=== PATIENT | female | born 1940 | race Caucasian/White ===

== ENCOUNTER → 2016-11-25 | Outpatient (CLI) | payer MEDICARE, BC ==
[2016-11-25 13:44] LABS: ALT 29 U/L (9-52); AST 26 U/L (14-36); Alkaline Phosphatase 112 U/L (38-126); Anion Gap 12 mmol/L; Blood Urea Nitrogen 18 mg/dL (7-17); Calcium 9.4 mg/dL (8.4-10.2); Carbon Dioxide 29 mmol/L (22-30); Chloride 102 mmol/L (98-107); Cholesterol 185 mg/dL (<200); Glucose 113 mg/dL (74-99); HDL Cholesterol 42 mg/dL (40-60); Non-African American GFR(MDRD) >60 (>60 ml/min/1.73 sqM); Potassium 4.9 mmol/L (3.5-5.1); Sodium 143 mmol/L (137-145); Total Bilirubin 0.6 mg/dL (0.2-1.3); Total Protein 7.7 g/dL (6.3-8.2); Triglycerides 110 mg/dL (<150)
== END | disposition home or self-care (01) ==
LOC: LABWHC1 12:23
PROVIDERS: ATTEND Internal Medicine Interventional Cardiology
DX: E78.2 Mixed hyperlipidemia (principal)
CPT/HCPCS: 36415; 80053; 80061

== ENCOUNTER → 2017-06-01 | Outpatient (CLI) | payer MEDICARE, BC ==
[2017-06-01 12:36] LABS: Basophils % (A) 1 %; CH 21.7; CHCM 28.1; Eosinophils # (A) 0.2 k/uL (0-0.7); Eosinophils % (A) 3 %; HCT 33.6 % (34.0-46.0); HDW 3.09; HGB 9.4 gm/dL (11.4-16.0); Hypochromasia Marked; Luc # (Auto) 0.26; Luc % (Auto) 3; Lymphocytes % (A) 26 %; MCH 21.7 pg (25.0-35.0); MCV 77.6 fL (80.0-100.0); Mean Platelet Volume 6.6; Microcytosis Slight; Monocytes # (A) 0.4 k/uL (0-1.0); Monocytes % (A) 5 %; Neutrophils # (A) 4.9 k/uL (1.3-7.7); Neutrophils % (A) 63 %; RBC 4.32 m/uL (3.80-5.40); RDW 15.8 % (11.5-15.5); WBC 7.7 k/uL (3.8-10.6); WBC (Perox) 8.22
[2017-06-01 12:48] LABS: ALT 21 U/L (9-52); AST 20 U/L (14-36); Alkaline Phosphatase 101 U/L (38-126); Anion Gap 10 mmol/L; Blood Urea Nitrogen 19 mg/dL (7-17); Calcium 9.3 mg/dL (8.4-10.2); Carbon Dioxide 30 mmol/L (22-30); Chloride 103 mmol/L (98-107); Cholesterol 170 mg/dL (<200); Glucose 119 mg/dL (74-99); HDL Cholesterol 37 mg/dL (40-60); Non-African American GFR(MDRD) >60 (>60 ml/min/1.73 sqM); Potassium 4.4 mmol/L (3.5-5.1); Sodium 143 mmol/L (137-145); Total Bilirubin 0.5 mg/dL (0.2-1.3); Total Protein 7.4 g/dL (6.3-8.2); Triglycerides 99 mg/dL (<150)
== END | disposition home or self-care (01) ==
LOC: LABWHC1 11:15
PROVIDERS: ATTEND Internal Medicine Interventional Cardiology
DX: I42.2 Other hypertrophic cardiomyopathy (principal); I10 Essential (primary) hypertension
CPT/HCPCS: 36415; 80053; 80061; 85025

== ENCOUNTER → 2017-11-02 | Outpatient (CLI) | payer MEDICARE, BC ==
[2017-11-02 11:58] LABS: ALT 28 U/L (9-52); AST 22 U/L (14-36); Albumin 4.2 g/dL (3.5-5.0); Alkaline Phosphatase 105 U/L (38-126); Anion Gap 10 mmol/L; Blood Urea Nitrogen 23 mg/dL (7-17); Calcium 9.8 mg/dL (8.4-10.2); Carbon Dioxide 34 mmol/L (22-30); Chloride 101 mmol/L (98-107); Cholesterol 198 mg/dL (<200); Glucose 126 mg/dL (74-99); HDL Cholesterol 39 mg/dL (40-60); LDL Cholesterol,Calculated 136 mg/dL (0-99); Potassium 4.4 mmol/L (3.5-5.1); Sodium 145 mmol/L (137-145); Total Bilirubin 0.4 mg/dL (0.2-1.3); Total Protein 7.6 g/dL (6.3-8.2); Triglycerides 113 mg/dL (<150)
== END | disposition home or self-care (01) ==
LOC: LABWHC1 11:04
PROVIDERS: ATTEND Internal Medicine Interventional Cardiology
DX: E78.2 Mixed hyperlipidemia (principal); R60.0 Localized edema
CPT/HCPCS: 36415; 80053; 80061

== ENCOUNTER → 2017-11-03 | Outpatient (CLI) | payer MEDICARE, BC ==
--- NOTE | 2017-11-03 15:38 | XR ---
EXAMINATION TYPE: XR chest 2V DATE OF EXAM: 11/03/2017 COMPARISON: 06/22/2015 INDICATION: CHF TECHNIQUE: Frontal and lateral views of the chest are obtained. FINDINGS: The heart size is normal. The pulmonary vasculature is normal. There is elevation of the right diaphragm. A small fluid collection is evident on the right. This cou ld be a subpulmonic effusion. Findings are similar to 06/22/2015. IMPRESSION: 1. Small to moderate right subpulmonic effusion.
== END | disposition home or self-care (01) ==
LOC: RADXRMAIN 15:12
PROVIDERS: ATTEND Physician Assistant
DX: I50.30 Unspecified diastolic (congestive) heart failure (principal); J91.8 Pleural effusion in other conditions classified elsewhere
CPT/HCPCS: 71046

== ENCOUNTER 2018-05-11 15:11 | Inpatient (IN) | payer MEDICARE, BC ==
[2018-05-11] MEDS ORDERED: EPINEPHrine 10 ML SYRINGE (0.1 MG/ML) ONE (15:20)
[2018-05-11] MEDS ORDERED: IPRATROPIUM-ALBUTEROL 3 ML NEB INHALATION STA (15:29)
[2018-05-11] MEDS ORDERED: IPRATROPIUM-ALBUTEROL 3 ML NEB INHALATION PRN (15:31)
[2018-05-11] MEDS: PROPOFOL 1,000 MG in EMPTY BAG 1 BAG IV SCH ×2 (15:35→19:41)
--- NOTE | 2018-05-11 15:37 | ED ---
General Adult HPI - General Chief complaint: Shortness of Breath Stated complaint: Respitory failure Source: patient, EMS Mode of arrival: EMS Limitations: altered mental status, physical limitation - History of Present Illness Initial comments: Patient is a 77 year old female presenting to the Emergency Department as a prioroty one by EMS for dyspnea. Patient reportedly became suddenly short of breath less than an hour prior to arrival. EMS reports patient decompensated despite CPAP. Patient is unresponsive and unable to provide any history. Patient does have a history of both pulmonary and cardiac problems previously. - Related Data Home Medications Medication Instructions Recorded Confirmed Cetirizine HCl [Zyrtec] 10 mg PO HS 05/31/14 05/11/18 Esomeprazole Magnesium [NexIUM] 40 mg PO AC-SUPPER 05/31/14 05/11/18 Furosemide [Lasix] 40 mg PO DAILY PRN 05/31/14 05/11/18 Montelukast [Singulair] 10 mg PO HS 05/31/14 05/11/18 Potassium Chloride ER [K-Dur 10] 10 meq PO DAILY 05/31/14 05/11/18 Thyroid, Pork [[place] Thyroid] 30 mg PO DAILY 05/31/14 05/11/18 Isosorbide Mononitrate [Imdur] 30 mg PO HS 06/01/14 05/11/18 Propafenone [Rythmol] 150 mg PO BID 11/22/14 05/11/18 Aspirin EC [Ecotrin] 325 mg PO DAILY 05/11/18 05/11/18 Diltiazem Cd [Cardizem CD] 300 mg PO HS 05/11/18 05/11/18 Ezetimibe [Zetia] 10 mg PO HS 05/11/18 05/11/18 Fluticasone/Salmeterol [Advair 1 puff INHALATION RT-BID 05/11/18 05/11/18 500-50 Diskus] Mirabegron [Myrbetriq] 25 mg PO DAILY 05/11/18 05/11/18 Vitamin D+Mineral+Vit C 2 tab PO DAILY 05/11/18 05/11/18 Allergies Allergy/AdvReac Type Severity Reaction Status Date / Time Sulfa (Sulfonamide Allergy Itching Verified 05/11/18 15:14 Antibiotics) MOLD Allergy Unknown Uncoded 05/11/18 15:14 SMOKE Allergy Unknown Uncoded 05/11/18 15:14 Review of Systems ROS Statement: Those systems with pertinent positive or pertinent negative responses have been documented in the HPI. ROS Other: All systems not noted in ROS Statement are negative. Limitations: ROS unobtainable due to patients medical condition Past Medical History Past Medical History: Asthma, Chest Pain / Angina, Heart Failure, COPD, CVA/TIA , GERD/Reflux, Hyperlipidemia, Hypertension, Pneumonia, Sleep Apnea/CPAP/BIPAP, Thyroid Disorder Additional Past Medical History / Comment(s): Valve Disease/AORTIC STENOSIS, TIA ,PALPITATIONS, KIDNEY STONES. UTI 1 MONTH AGO, GOUT ARTHRITS, CONSTIPATED, allergies History of Any Multi-Drug Resistant Organisms: None Reported Past Surgical History: Cholecystectomy, Heart Catheterization, Hysterectomy Additional Past Surgical History / Comment(s): diaphram surgery, cataract DONNIE, HEART CATH RADIAL APPROACH -SMALL 20% BLOCKAGE Past Anesthesia/Blood Transfusion Reactions: No Reported Reaction Past Psychological History: No Psychological Hx Reported Smoking Status: Never smoker Past Alcohol Use History: None Reported Past Drug Use History: None Reported - Past Family History Mother Family Medical History: Myocardial Infarction ([place]) Additional Family Medical History / Comment(s): AGE 71 Father Additional Family Medical History / Comment(s): AGE 67 FROM ALS General Exam Limitations: altered mental status, physical limitation General appearance: obtunded Head exam: Present: atraumatic Eye exam: Present: PERRL ENT exam: Present: other (bipap) Neck exam: Present: normal inspection Respiratory exam: Present: respiratory distress, wheezes, rales, decreased breath sounds Cardiovascular Exam: Present: tachycardia GI/Abdominal exam: Present: soft. Absent: tenderness Extremities exam: Absent: pedal edema, calf tenderness Neurological exam: Present: altered Expanded Neurological exam: Present: inattentive. Absent: protecting the airway Psychiatric exam: Present: other (non verbal) Skin exam: Present: cyanosis Course Vital Signs 05/11/18 05/11/18 05/11/18 15:14 15:22 15:30 Temperature 97.9 F Pulse Rate 116 H 118 H 114 H Respiratory 16 18 18 Rate Blood Pressure 210/100 240/109 173/72 O2 Sat by Pulse 82 L 97 97 Oximetry 05/11/18 05/11/18 05/11/18 15:50 15:55 16:05 Temperature Pulse Rate 110 H 108 H 105 H Respiratory 18 26 H 26 H Rate Blood Pressure 151/66 O2 Sat by Pulse 98 Oximetry - Reevaluation(s) Reevaluation #1: 05/11/18 15:43 Patient did code just prior to intubation. Patient did have CPR and 1 epinephrine with return of circulation. 05/11/18 15:43 Dr. Whatley did arrive just after patient. He did assist with care and placed central line. He did speak with family. 05/11/18 16:13 Patient was reevaluated 05/11/18 17:14 Abnormal vital signs and Elevated lactic acid is likely secondary to respiratory failure and cardiac arrest. Therefore patient does not meet sepsis criteria at this time. 05/11/18 17:14 Patient again reevaluated. Case was also discussed in detail with Dr. Randall, who will admit for Dr. Cox. EKG Findings - EKG Comments: EKG Findings:: Sinus tachycardia 1:15. First-degree AV block with a PA of 236. QRS 102. QT 294. QTC 406. Normal axis. Q wave in lead V1 and V2. No acute ST change. Procedures - Intubation Sedative: Versed Paralytic: Succinylcholine Laryngoscope: Branham Size: 3 ET Tube Size: 7.5 Tube Placement Confirmation: visualized tube passing through cords, equal breath sounds bilaterally, no breath sounds over epigastrium, confirmation by capnometry Additional Comments: Patient did have secretions in the posterior oropharynx prior to intubation that was suctioned out. Medical Decision Making - Lab Data Result diagrams: 05/11/18 15:25 05/11/18 15:25 Lab Results 05/11/18 05/11/18 05/11/18 Range/Units 15:25 15:25 15:25 WBC 22.9 H (3.8-10.6) k/uL RBC 5.24 (3.80-5.40) m/uL Hgb 15.2 (11.4-16.0) gm/dL Hct 49.0 H (34.0-46.0) % MCV 93.4 (80.0-100.0) fL MCH 29.0 (25.0-35.0) pg MCHC 31.1 (31.0-37.0) g/dL RDW 14.1 (11.5-15.5) % Plt Count 461 H (150-450) k/uL Neutrophils % (Manual) 48 % Band Neutrophils % 3 % Lymphocytes % (Manual) 43 % Monocytes % (Manual) 2 % Eosinophils % (Manual) 4 % Neutrophils # (Manual) 11.60 H (1.3-7.7) k/uL Lymphocytes # (Manual) 9.85 H (1.0-4.8) k/uL Monocytes # (Manual) 0.46 (0-1.0) k/uL Eosinophils # (Manual) 0.92 H (0-0.7) k/uL Nucleated RBCs 0 (0-0) /100 WBC Manual Slide Review Performed Hypochromasia Marked PT (9.0-12.0) sec INR (<1.2) APTT (22.0-30.0) sec Sample Site ABG pH (7.35-7.45) ABG pCO2 (35-45) mmHg ABG pO2 (83-108) mmHg ABG HCO3 (21-25) mmol/L ABG Total CO2 (19-24) mmol/L ABG O2 Saturation (94-97) % ABG Base Excess mmol/L Trevin Test FiO2 % Sodium 145 (137-145) mmol/L Potassium 5.0 (3.5-5.1) mmol/L Chloride 101 (98-107) mmol/L Carbon Dioxide 26 (22-30) mmol/L Anion Gap 18 mmol/L BUN 25 H (7-17) mg/dL Creatinine 0.80 (0.52-1.04) mg/dL Est GFR (CKD-EPI)AfAm 81 (>60 ml/min/1.73 sqM) Est GFR (CKD-EPI)NonAf 71 (>60 ml/min/1.73 sqM) Glucose 274 H (74-99) mg/dL Plasma Lactic Acid Selwyn (0.7-2.0) mmol/L Calcium 9.5 (8.4-10.2) mg/dL Total Bilirubin 0.5 (0.2-1.3) mg/dL AST 37 H (14-36) U/L ALT 22 (9-52) U/L Alkaline Phosphatase 143 H (38-126) U/L Total Creatine Kinase 89 (30-135) U/L CK-MB (CK-2) 2.0 (0.0-2.4) ng/mL CK-MB (CK-2) Rel Index 2.2 Troponin I <0.012 (0.000-0.034) ng/mL NT-Pro-B Natriuret Pep pg/mL Total Protein 8.1 (6.3-8.2) g/dL Albumin 4.6 (3.5-5.0) g/dL 05/11/18 05/11/18 05/11/18 Range/Units 15:25 15:25 15:56 WBC (3.8-10.6) k/uL RBC (3.80-5.40) m/uL Hgb (11.4-16.0) gm/dL Hct (34.0-46.0) % MCV (80.0-100.0) fL MCH (25.0-35.0) pg MCHC (31.0-37.0) g/dL RDW (11.5-15.5) % Plt Count (150-450) k/uL Neutrophils % (Manual) % Band Neutrophils % % Lymphocytes % (Manual) % Monocytes % (Manual) % Eosinophils % (Manual) % Neutrophils # (Manual) (1.3-7.7) k/uL Lymphocytes # (Manual) (1.0-4.8) k/uL Monocytes # (Manual) (0-1.0) k/uL Eosinophils # (Manual) (0-0.7) k/uL Nucleated RBCs (0-0) /100 WBC Manual Slide Review Hypochromasia PT 10.0 (9.0-12.0) sec INR 1.0 (<1.2) APTT 22.4 (22.0-30.0) sec Sample Site ABG pH (7.35-7.45) ABG pCO2 (35-45) mmHg ABG pO2 (83-108) mmHg ABG HCO3 (21-25) mmol/L ABG Total CO2 (19-24) mmol/L ABG O2 Saturation (94-97) % ABG Base Excess mmol/L Trevin Test FiO2 % Sodium (137-145) mmol/L Potassium (3.5-5.1) mmol/L Chloride (98-107) mmol/L Carbon Dioxide (22-30) mmol/L Anion Gap mmol/L BUN (7-17) mg/dL Creatinine (0.52-1.04) mg/dL Est GFR (CKD-EPI)AfAm (>60 ml/min/1.73 sqM) Est GFR (CKD-EPI)NonAf (>60 ml/min/1.73 sqM) Glucose (74-99) mg/dL Plasma Lactic Acid Selwyn 5.9 H* (0.7-2.0) mmol/L Calcium (8.4-10.2) mg/dL Total Bilirubin (0.2-1.3) mg/dL AST (14-36) U/L ALT (9-52) U/L Alkaline Phosphatase (38-126) U/L Total Creatine Kinase (30-135) U/L CK-MB (CK-2) (0.0-2.4) ng/mL CK-MB (CK-2) Rel Index Troponin I (0.000-0.034) ng/mL NT-Pro-B Natriuret Pep 1200 pg/mL Total Protein (6.3-8.2) g/dL Albumin (3.5-5.0) g/dL 05/11/18 Range/Units 16:16 WBC (3.8-10.6) k/uL RBC (3.80-5.40) m/uL Hgb (11.4-16.0) gm/dL Hct (34.0-46.0) % MCV (80.0-100.0) fL MCH (25.0-35.0) pg MCHC (31.0-37.0) g/dL RDW (11.5-15.5) % Plt Count (150-450) k/uL Neutrophils % (Manual) % Band Neutrophils % % Lymphocytes % (Manual) % Monocytes % (Manual) % Eosinophils % (Manual) % Neutrophils # (Manual) (1.3-7.7) k/uL Lymphocytes # (Manual) (1.0-4.8) k/uL Monocytes # (Manual) (0-1.0) k/uL Eosinophils # (Manual) (0-0.7) k/uL Nucleated RBCs (0-0) /100 WBC Manual Slide Review Hypochromasia PT (9.0-12.0) sec INR (<1.2) APTT (22.0-30.0) sec Sample Site rrad ABG pH 7.21 L (7.35-7.45) ABG pCO2 63 H (35-45) mmHg ABG pO2 88 (83-108) mmHg ABG HCO3 25 (21-25) mmol/L ABG Total CO2 27 H (19-24) mmol/L ABG O2 Saturation 94.5 (94-97) % ABG Base Excess -2.4 mmol/L Trevin Test Yes FiO2 100 % Sodium (137-145) mmol/L Potassium (3.5-5.1) mmol/L Chloride (98-107) mmol/L Carbon Dioxide (22-30) mmol/L Anion Gap mmol/L BUN (7-17) mg/dL Creatinine (0.52-1.04) mg/dL Est GFR (CKD-EPI)AfAm (>60 ml/min/1.73 sqM) Est GFR (CKD-EPI)NonAf (>60 ml/min/1.73 sqM) Glucose (74-99) mg/dL Plasma Lactic Acid Selwyn (0.7-2.0) mmol/L Calcium (8.4-10.2) mg/dL Total Bilirubin (0.2-1.3) mg/dL AST (14-36) U/L ALT (9-52) U/L Alkaline Phosphatase (38-126) U/L Total Creatine Kinase (30-135) U/L CK-MB (CK-2) (0.0-2.4) ng/mL CK-MB (CK-2) Rel Index Troponin I (0.000-0.034) ng/mL NT-Pro-B Natriuret Pep pg/mL Total Protein (6.3-8.2) g/dL Albumin (3.5-5.0) g/dL - Radiology Data Radiology results: image reviewed (Chest x-ray does show ET tube and NG tube in appropriate positions. Central venous catheter also in appropriate position. Patchy densities and increased interstitium. Findings suggestive for CHF, cannot exclude pneumonia.) Critical Care Time Critical Care Time: Yes Total Critical Care Time: 36 Disposition Clinical Impression: Respiratory failure Disposition: ADMITTED IP TO THIS [facility] Condition: Critical Is patient prescribed a controlled substance at d/c from ED?: No Referrals: Cullen Cox MD [Primary Care Provider] - 1-2 days Decision Time: 17:15
[2018-05-11] MEDS ORDERED: SUCCINYLCHOLINE CHLORIDE VIAL 200 MG/10 ML VIAL IV STA (15:40)
[2018-05-11] MEDS ORDERED: MIDAZOLAM 1 MG/ML 5 ML VIAL IV STA (15:40)
[2018-05-11] MEDS ORDERED: PIPERACILLIN-TAZOBACTAM 3.375 GM in DEXTROSE/WATER 1 50ML.BAG IVPB STA (15:51)
[2018-05-11 15:53] LABS: HGB 15.2 gm/dL (11.4-16.0); Hypochromasia Marked; MCHC 31.1 g/dL (31.0-37.0); MCV 93.4 fL (80.0-100.0); Mean Platelet Volume 7.8; Platelet Count 461 k/uL (150-450); RBC 5.24 m/uL (3.80-5.40); RDW 14.1 % (11.5-15.5); WBC 22.9 k/uL (3.8-10.6)
--- NOTE | 2018-05-11 15:56 | XR ---
EXAMINATION TYPE: XR chest 1V portable DATE OF EXAM: 05/11/2018 COMPARISON: Prior chest 11/03/2017 HISTORY: Intubated TECHNIQUE: Single frontal view of the chest is obtained. FINDINGS: Endotracheal tube and NG tube are overlying appropriate positions, left subclavian central venous catheter shows the distal tip overlying the superior vena cava. There is no evident pneumotho rax. Bilateral airspace disease is present in the perihilar regions especially, patchy density persis ts at the lung bases. Interstitium is increased. IMPRESSION: Findings may represent congestive heart failure, correlate. Pneumonia not excluded. Foll ow-up is recommended.
[2018-05-11 15:57] LABS: Albumin 4.6 g/dL (3.5-5.0); Calcium 9.5 mg/dL (8.4-10.2); Total Bilirubin 0.5 mg/dL (0.2-1.3); Total Protein 8.1 g/dL (6.3-8.2)
[2018-05-11 15:59] LABS: Partial Thromboplastin Time 22.4 sec (22.0-30.0)
[2018-05-11 16:01] LABS: Creatine Kinase 89 U/L (30-135)
[2018-05-11 16:14] LABS: Troponin I <0.012 ng/mL (0.000-0.034)
[2018-05-11 16:17] LABS: Band Neutrophils % 3 %; Eosinophils # (M) 0.92 k/uL (0-0.7); Lymphocytes # (M) 9.85 k/uL (1.0-4.8); Monocytes # (M) 0.46 k/uL (0-1.0); Neutrophils % (M) 48 %; Nucleated Red Blood Cells 0 /100 WBC (0-0); Total Cells Counted 100
[2018-05-11 16:25] LABS: ABG Base Excess -2.4 mmol/L; ABG HCO3 25 mmol/L (21-25); ABG Oxygen Saturation 94.5 % (94-97); ABG PCO2 63 mmHg (35-45); ABG PH 7.21 (7.35-7.45); ABG PO2 88 mmHg (83-108); ABG TCO2 27 mmol/L (19-24)
--- NOTE | 2018-05-11 16:47 | P.CNPUL ---
History of Present Illness Consult date: 05/11/18 Reason for consult: dyspnea History of present illness: A 77-year-old morbidly obese female patient with known history of obstructive sleep apnea maintained on BiPAP therapy on outpatient basis and addition to chronic bronchial asthma and significant limitation in exercise capacity secondary to her age body habitus and comorbidities, presented to the hospital because of an acute respiratory failure. I interviewed the daughter. Apparently the patient was at [employer] studies and she was getting progressively more short of breath. After arriving home she did [id number] breathing treatments without much relief. Ultimately she called her daughter who arrived to the scene and she saw that her mother was having more chest congestion, respirator distress, wheezing, and she was headed into respiratory failure. EMS was called to the scene. Upon arrival of EMS, the patient's pulse ox was in the low 70s pH was placed on on the percent nonrebreather facemask as she remained hypoxic and following that the patient was placed on BiPAP. The patient was moved to the emergency department. The patient was seen immediately after she arrived the ED. She was hypoxic, and she was cold and clammy and salmon color and cyanotic. As we were getting ready to intubate the patient, the patient lost pulse briefly and she became bradycardic. She went to the [facility]. She received a dose of epinephrine. She was started on CPR. Within 1 minute she recovered her pulse and the blood pressure. She was intubated and placed on a mechanical ventilator. She currently has a 7.[address] She is an assist-control mode of ventilation at the rate of 26, tidal volume of 400, FiO2 of 100% and a PEEP of 5. Immediately postintubation the blood pressure improved and she had a systolic above 200. She was started on propofol for sedation and her current systolic blood pressure in the 150s. A Ope catheter was inserted. The peak pressures in the 38-40 range. Static pressures around 32. The patient has significant bronchospasm and wheezing. A chest x-ray was done post intubation and post line placement and the chest x- ray showed no evidence of any pneumothorax. Bilateral air space disease was present in the perihilar regions in the lower lobes bilaterally right more than left. ET tube and NG tube were in good location. The patient also had a left subclavian triple-lumen catheter that was inserted without any complications. She was started on IV Zosyn knowing that the patient also briefly aspirated and vomited at the time of the intubation. Labs showed a white cell count of 22. The postintubation blood gas showed a pH of 7.21 with a pCO2 of 63 and pO2 of 88 and this blood gases on 100% FiO2. Initial lactic acid level was at 5.9 Review of Systems ROS unobtainable: due to endotracheal tube Past Medical History Past Medical History: Asthma, Chest Pain / Angina, Heart Failure, COPD, CVA/TIA , GERD/Reflux, Hyperlipidemia, Hypertension, Pneumonia, Sleep Apnea/CPAP/BIPAP, Thyroid Disorder Additional Past Medical History / Comment(s): Severe persistent bronchial asthma , history of right hemidiaphragmatic plication for unilateral paralysis, obstructive sleep apnea maintained on BiPAP therapy on outpatient basis, aortic stenosis, previous history of TIA, nephrolithiasis, UTI diagnosed approximately a month ago and treated, gouty arthritis, chronic constipation, hypothyroidism, hypertension, hyperlipidemia, acid reflux, morbid obesity, history of atrial fibrillation current rhythm is sinus History of Any Multi-Drug Resistant Organisms: None Reported Past Surgical History: Cholecystectomy, Heart Catheterization, Hysterectomy Additional Past Surgical History / Comment(s): diaphram surgery, cataract DONNIE, HEART CATH RADIAL APPROACH -SMALL 20% BLOCKAGE Past Anesthesia/Blood Transfusion Reactions: No Reported Reaction Past Psychological History: No Psychological Hx Reported Smoking Status: Never smoker Past Alcohol Use History: None Reported Past Drug Use History: None Reported - Past Family History Mother Family Medical History: Myocardial Infarction ([place]) Additional Family Medical History / Comment(s): AGE 71 Father Additional Family Medical History / Comment(s): AGE 67 FROM ALS Medications and Allergies Home Medications Medication Instructions Recorded Confirmed Type Cetirizine HCl [Zyrtec] 10 mg PO HS 05/31/14 05/11/18 History Esomeprazole Magnesium [NexIUM] 40 mg PO AC-SUPPER 05/31/14 05/11/18 History Furosemide [Lasix] 40 mg PO DAILY PRN 05/31/14 05/11/18 History Montelukast [Singulair] 10 mg PO HS 05/31/14 05/11/18 History Potassium Chloride ER [K-Dur 10] 10 meq PO DAILY 05/31/14 05/11/18 History Thyroid, Pork [[place] Thyroid] 30 mg PO DAILY 05/31/14 05/11/18 History Isosorbide Mononitrate [Imdur] 30 mg PO HS 06/01/14 05/11/18 History Propafenone [Rythmol] 150 mg PO BID 11/22/14 05/11/18 History Aspirin EC [Ecotrin] 325 mg PO DAILY 05/11/18 05/11/18 History Diltiazem Cd [Cardizem CD] 300 mg PO HS 05/11/18 05/11/18 History Ezetimibe [Zetia] 10 mg PO HS 05/11/18 05/11/18 History Fluticasone/Salmeterol [Advair 1 puff INHALATION RT-BID 05/11/18 05/11/18 History 500-50 Diskus] Mirabegron [Myrbetriq] 25 mg PO DAILY 05/11/18 05/11/18 History Vitamin D+Mineral+Vit C 2 tab PO DAILY 05/11/18 05/11/18 History Allergies Allergy/AdvReac Type Severity Reaction Status Date / Time Sulfa (Sulfonamide Allergy Itching Verified 05/11/18 15:14 Antibiotics) MOLD Allergy Unknown Uncoded 05/11/18 15:14 SMOKE Allergy Unknown Uncoded 05/11/18 15:14 Physical Exam Vitals: Vital Signs Temp Pulse Resp BP Pulse Ox 05/11/18 16:05 105 H 26 H 05/11/18 15:55 108 H 26 H 05/11/18 15:50 110 H 18 151/66 98 05/11/18 15:30 114 H 18 173/72 97 05/11/18 15:22 118 H 18 240/109 97 05/11/18 15:14 97.9 F 116 H 16 210/100 82 L Intake and Output 05/11/18 05/11/18 05/11/18 06:59 14:59 22:59 Intake Total 1.776 Balance 1.776 Intake: Intake, IV Titration 1.776 Amount Propofol 1,000 mg In 1.776 Empty Bag 1 bag @ Titrate IV .Q0M ON LICENSE OF [facility] Rx#: [id number] Other: Weight 111.13 kg Patient currently intubated on mechanical ventilator, comfortable on propofol. Orogastric and orotracheal tube are both in place. Head exam was generally normal. There was no scleral icterus or corneal arcus. Mucous membranes were moist. Neck is short and supple and there is mild JVDs no goiter or neck masses appreciated. Orogastric and orotracheal tube are both in place and the patient has a left subclavian triple-lumen catheter in place. Lungs sounds are diminished bilaterally along with scattered rhonchi and scattered wheezes heard throughout the lung hillman bilaterally and crackles in the lung bases Heart sounds are irregular positive S1-S2 and there is no significant murmurs appreciated.Cardiac exam revealed the PMI to be normally situated and sized. The rhythm was regular and no extrasystoles were noted during several minutes of auscultation. The first and second heart sounds were normal and physiologic splitting of the second heart sound was noted. There were no murmurs, rubs, clicks, or gallops. Abdominal exam revealed normal bowel sounds. The abdomen was soft, non-tender, and without masses, organomegaly, or appreciable enlargement of the abdominal aorta. Overall the patient is obese and the patient's organs cannot be accurately palpated. No direct tenderness or rebound tensile guarding Examination of the extremities revealed easily palpable radial, femoral and pedal pulses. There was no cyanosis, clubbing or edema. Examination of the skin revealed no evidence of significant rashes, suspicious appearing nevi or other concerning lesions. Neurologically the patient is sedated and calm and comfortable most for extremities to painful stimulation Results - Laboratory Findings CBC and BMP: 05/11/18 15:25 05/11/18 15:25 ABG ABG pH 7.21 (7.35-7.45) L 05/11/18 16:16 ABG pCO2 63 mmHg (35-45) H 05/11/18 16:16 ABG pO2 88 mmHg (83-108) 05/11/18 16:16 ABG O2 Saturation 94.5 % (94-97) 05/11/18 16:16 PT/INR, D-dimer PT 10.0 sec (9.0-12.0) 05/11/18 15:25 INR 1.0 (<1.2) 05/11/18 15:25 Abnormal lab findings: Abnormal Labs 05/11/18 05/11/18 05/11/18 15:25 15:25 15:56 WBC 22.9 H Hct 49.0 H Plt Count 461 H Neutrophils # (Manual) 11.60 H Lymphocytes # (Manual) 9.85 H Eosinophils # (Manual) 0.92 H ABG pH ABG pCO2 ABG Total CO2 BUN 25 H Glucose 274 H Plasma Lactic Acid Selwyn 5.9 H* AST 37 H Alkaline Phosphatase 143 H 05/11/18 16:16 WBC Hct Plt Count Neutrophils # (Manual) Lymphocytes # (Manual) Eosinophils # (Manual) ABG pH 7.21 L ABG pCO2 63 H ABG Total CO2 27 H BUN Glucose Plasma Lactic Acid Selwyn AST Alkaline Phosphatase - Diagnostic Findings Chest x-ray: image reviewed Assessment and Plan Plan: Assessment 1 acute hypoxic respiratory failure with bilateral lower lobe pneumonia and possibly component of CHF. The patient presented emergency department with acute respiratory arrest, intubated and placed on a mechanical ventilator 2 bilateral lower lobe pneumonia with airspace disease and consolidations. Rule out aspiration pneumonia. Rule out with acquired pneumonia. Suspect bacterial pneumonia. 3 acute cardiac pulmonary arrest with brief loss in progress where the patient received CPR and received a dose of epinephrine with return of spontaneous circulation. Currently on no pressors. This is probably secondary to severe hypoxemia as the patient was quite hypoxemic at a time of arrival and on route to the hospital. 4 lactic acidosis secondary to above 5 leukocytosis secondary to above 6 morbid obesity with a BMI of 43.4 7 obstructive sleep apnea 8 severe persistent bronchial asthma 9 history of right hemidiaphragmatic plication for unilateral paralysis 10 history of aortic stenosis/valvular heart disease severity of which is not known at this point in time 11 history of TIA 12 nephrolithiasis 13 gouty arthritis 14 hypothyroidism 13 hypertension 16 hyperlipidemia 17 history of atrial fibrillation on Rythmol and her current rhythm is sinus 18 acid reflux 19 gout 20 degenerative arthritis Plan Patient is currently intubated on a mechanical ventilator. We'll monitor the blood gases. Keep the patient propofol for sedation. The sputum Gram stain and culture. Obtain blood culture. Cover the patient with a combination of Zosyn and Levaquin as broad-spectrum antibiotic coverage. IV fluids with normal saline at the rate of 100 mL an hour. We'll give the patient bolus of 1 L at this point in time and monitor the lactic acid level. Obtain echocardiogram in a.m. Put the patient on DuoNeb the regimens around-the- clock. IV Solu Medrol 40 minutes every 6 hours. Resume outpatient medications including thyroid hormone and Rythmol. He began GI prophylaxis. Triple-lumen catheter was inserted. Daily chest x-rays. We will continue to follow make further recommendations based on overall progress. She has multiple comorbidities. Baseline performance and functional status was also suboptimal based on the history provided by the family. Condition is critical at this point. She was hypoxic prior to her arrival to the emergency department and always there is a possibility of hypoxic encephalopathy complicating no presentation. We'll continue to follow. Time with Patient: Greater than 30
[2018-05-11] MEDS ORDERED: LEVOFLOXACIN 750MG-D5W PMX 750 MG in DEXTROSE/WATER 1 150ML.BAG IVPB STA (16:57)
[2018-05-11] MEDS ORDERED: ENOXAPARIN 40 MG/0.4 ML SYRINGE SQ STA (16:58)
[2018-05-11] MEDS ORDERED: NALOXONE 0.4 MG/ML 1 ML VIAL IV PRN (17:21)
[2018-05-11] MEDS ORDERED: PNEUMONIA PROTOCOL UTILIZED 1 EACH MISC PO PRN (17:24)
[2018-05-11] MEDS ORDERED: DEXTROSE 5%-0.45% NACL 1,000 ML IV SCH (17:30)
--- NOTE | 2018-05-11 17:53 | OP ---
OPERATIVE REPORT TRIPLE LUMEN CATHETER PLACEMENT: PREOPERATIVE DIAGNOSIS: Acute respiratory failure. POSTOPERATIVE DIAGNOSIS: Acute respiratory failure. Indication: Hemodynamic monitoring/Intravenous access. A time-out was completed verifying correct patient, procedure, site, positioning, and implant(s) or special equipment if applicable. The patient was placed in a dependent position appropriate for triple lumen catheter placement based on the vein to be cannulated. The patient's left shoulder was prepped and draped in sterile fashion. 1% Lidocaine was used to anesthetize the surrounding skin area. A triple-lumen 9F Cordis catheter was introduced into the subclavian vein using Seldinger technique. The catheter was threaded smoothly over the guide wire and appropriate blood return was obtained. Each lumen of the catheter was evacuated of air and flushed with sterile saline. The catheter was then sutured in place to the skin and a sterile dressing applied. Perfusion to the extremity distal to the point of catheter insertion was checked and found to be adequate. No bedside complications or bleeding. MMODL / IJN: [id number] /
[2018-05-11] MEDS: PANTOPRAZOLE 40 MG/10 ML VIAL IVP SCH (18:03)
[2018-05-11] MEDS: methylPREDNISolone SOD SUCCI 125 MG/2 ML VIAL IV SCH ×2 (18:03→23:56)
[2018-05-11] MEDS ORDERED: SODIUM CHLORIDE 0.9% 1,000 ML IV ONE ×3 (19:20→21:19)
[2018-05-11 19:22] LABS: Glucose,Whole Blood 166 mg/dL (75-99)
[2018-05-11] MEDS: IPRATROPIUM-ALBUTEROL 3 ML NEB INHALATION SCH ×3 (19:27→23:08)
[2018-05-11 20:15] LABS: T4, Free (Free Thyroxine) 0.7 ng/dL (0.78-2.19)
[2018-05-11] MEDS: CHLORHEXIDINE GLUCONATE 15 ML CUP MUCOUS MEM SCH (20:21)
[2018-05-11 20:25] LABS: ABG Base Excess -0.5 mmol/L; ABG HCO3 26 mmol/L (21-25); ABG Oxygen Saturation 99.5 % (94-97); ABG PCO2 50 mmHg (35-45); ABG PH 7.32 (7.35-7.45); ABG PO2 178 mmHg (83-108); ABG TCO2 27 mmol/L (19-24)
[2018-05-11] MEDS: PROPAFENONE 150 MG TAB PO SCH (21:16)
[2018-05-11] MEDS ORDERED: NOREPINEPHRIN 16 MG-0.9%NS PMX 16 MG/250 ML ML IV SCH (23:15)
[2018-05-11] MEDS: HEPARIN SODIUM,PORCINE 5,000 UNIT/ML 1 ML VIAL SQ SCH (23:57)
[2018-05-12 00:04] LABS: Glucose,Whole Blood 190 mg/dL (75-99)
[2018-05-12] MEDS: INSULIN ASPART 100 UNIT/ML 1 ML 10 ML VIAL SQ SCH ×5 (00:05→17:19)
[2018-05-12] MEDS: IPRATROPIUM-ALBUTEROL 3 ML NEB INHALATION SCH ×6 (03:12→23:00)
[2018-05-12 04:45] LABS: ABG HCO3 25 mmol/L (21-25); ABG PCO2 47 mmHg (35-45); ABG PH 7.33 (7.35-7.45); ABG PO2 77 mmHg (83-108); ABG TCO2 26 mmol/L (19-24)
[2018-05-12] MEDS: methylPREDNISolone SOD SUCCI 125 MG/2 ML VIAL IV SCH ×3 (05:13→17:20)
[2018-05-12] MEDS: PIPERACILLIN-TAZOBACTAM 3.375 GM in DEXTROSE/WATER 1 50ML.BAG IVPB SCH ×3 (05:13→19:59)
[2018-05-12 05:18] LABS: Glucose,Whole Blood 152 mg/dL (75-99)
[2018-05-12 05:48] LABS: Anion Gap 11 mmol/L; Blood Urea Nitrogen 27 mg/dL (7-17); Calcium 8.7 mg/dL (8.4-10.2); Carbon Dioxide 23 mmol/L (22-30); Chloride 106 mmol/L (98-107); Glucose 189 mg/dL (74-99); Magnesium 1.8 mg/dL (1.6-2.3); Phosphorus 4.1 mg/dL (2.5-4.5); Potassium 4.7 mmol/L (3.5-5.1); Sodium 140 mmol/L (137-145)
[2018-05-12] MEDS ORDERED: Magnesium Replacement Protocol 1 EACH MISC MISCELLANE PRN (06:02)
[2018-05-12 06:12] LABS: Basophils % (A) 0 %; Eosinophils % (A) 0 %; HCT 41.5 % (34.0-46.0); HGB 12.9 gm/dL (11.4-16.0); Hypochromasia Moderate; Lymphocytes # (A) 0.6 k/uL (1.0-4.8); Lymphocytes % (A) 3 %; MCV 90.4 fL (80.0-100.0); Monocytes # (A) 0.7 k/uL (0-1.0); Monocytes % (A) 3 %; Neutrophils # (A) 20.8 k/uL (1.3-7.7); Neutrophils % (A) 93 %; Platelet Count 246 k/uL (150-450); RBC 4.59 m/uL (3.80-5.40); WBC 22.3 k/uL (3.8-10.6)
[2018-05-12] MEDS: MAGNESIUM SULFATE-D5W PMX 1 GM in DEXTROSE/WATER 1 100ML.BAG IVPB SCH ×2 (06:44→07:36)
[2018-05-12 08:18] LABS: INR 1.2 (<1.2); Prothrombin Time 11.3 sec (9.0-12.0)
--- NOTE | 2018-05-12 08:22 | P.CRDCN ---
History of Present Illness Consult date: 05/12/18 Chief complaint: Shortness of breath History of present illness: This is a 77-year-old female patient who was admitted to the intensive care unit with cardiopulmonary arrest. Currently the patient is intubated and she is on ventilator. The patient was in her usual state of health until yesterday when she was at the [facility] study and she started experiencing shortness of breath. She didn't go home and she did to back-to- back breathing treatment without any improvement in her symptoms. At that point the patient called her daughter came in and found her mother in respiratory distress where at that point EMS was called and the patient was hypoxic where she was brought to the emergency room. In the ER the patient did have cardiopulmonary arrest with PDA and she received 2 epinephrine and she was intubated at that point and she was brought to the intensive care unit. Currently the patient is intubated unit nit. Currently the patient is intubated but remain hemodynamically stable and she is not on any vasopressors. The patient does have history of obstructive sleep apnea and she uses CPAP machine. She is obese. The side that interim of cardiac history she does have history of mild nonobstructive coronary artery disease based on heart catheterization was performed in 2013. The patient underwent an echocardiogram bedside today and that revealed normal left ventricle systolic function with hypertensive heart disease and evidence off severe mitral stenosis with a mean gradient across the mitral valve 20 mmHg as well as moderate to severe aortic stenosis with a mean gradient across aortic valve of 30 mmHg. The chest x-ray showed what it seems to be possible bilateral pneumonia with possible component of congestive heart failure. The BNP came in to be around 1000. The EKG showed sinus rhythm with sinus tachycardia and nonspecific changes in the lateral leads. The first set of troponin came in to be normal and we'll obtain 2 more sets of troponin. The lactic acid is elevated. Past Medical History Past Medical History: Asthma, Chest Pain / Angina, Heart Failure, COPD, GERD/ Reflux, Hyperlipidemia, Hypertension, Pneumonia, Sleep Apnea/CPAP/BIPAP, Thyroid Disorder Additional Past Medical History / Comment(s): Valve Disease/AORTIC STENOSIS, PALPITATIONS, KIDNEY STONES. GOUT, ARTHRITS. History of Any Multi-Drug Resistant Organisms: None Reported Past Surgical History: Cholecystectomy, Heart Catheterization, Hysterectomy Additional Past Surgical History / Comment(s): diaphram surgery (VATS), cataract DONNIE, HEART CATH RADIAL APPROACH -SMALL 20% BLOCKAGE Past Anesthesia/Blood Transfusion Reactions: No Reported Reaction Past Psychological History: No Psychological Hx Reported Smoking Status: Never smoker Past Alcohol Use History: None Reported Past Drug Use History: None Reported - Past Family History Mother Family Medical History: Myocardial Infarction (SD) Additional Family Medical History / Comment(s): AGE 71 Father Additional Family Medical History / Comment(s): AGE 67 FROM ALS Medications and Allergies Home Medications Medication Instructions Recorded Confirmed Type Cetirizine HCl [Zyrtec] 10 mg PO HS 05/31/14 05/11/18 History Esomeprazole Magnesium [NexIUM] 40 mg PO AC-SUPPER 05/31/14 05/11/18 History Furosemide [Lasix] 40 mg PO DAILY PRN 05/31/14 05/11/18 History Montelukast [Singulair] 10 mg PO HS 05/31/14 05/11/18 History Potassium Chloride ER [K-Dur 10] 10 meq PO DAILY 05/31/14 05/11/18 History Isosorbide Mononitrate [Imdur] 30 mg PO HS 06/01/14 05/11/18 History Propafenone [Rythmol] 150 mg PO BID 11/22/14 05/11/18 History Aspirin EC [Ecotrin] 325 mg PO DAILY 05/11/18 05/11/18 History Diltiazem Cd [Cardizem CD] 300 mg PO HS 05/11/18 05/11/18 History Ezetimibe [Zetia] 10 mg PO HS 05/11/18 05/11/18 History Fluticasone/Salmeterol [Advair 1 puff INHALATION RT-BID PRN 05/11/18 05/11/18 History 500-50 Diskus] Mirabegron [Myrbetriq] 25 mg PO DAILY 05/11/18 05/11/18 History Thyroid,Pork [[place] Thyroid] 60 mg PO DAILY 05/11/18 05/11/18 History Vitamin D+Mineral+Vit C 2 tab PO DAILY 05/11/18 05/11/18 History Allergies Allergy/AdvReac Type Severity Reaction Status Date / Time Sulfa (Sulfonamide Allergy Itching Verified 05/11/18 15:14 Antibiotics) MOLD Allergy Unknown Uncoded 05/11/18 15:14 SMOKE Allergy Unknown Uncoded 05/11/18 15:14 Physical Exam Vitals: Vital Signs Temp Pulse Resp BP Pulse Ox 05/12/18 07:27 92 05/12/18 07:13 94 05/12/18 07:00 96 28 H 119/60 96 05/12/18 06:30 92 27 H 114/55 96 05/12/18 06:00 91 26 H 109/54 96 05/12/18 05:30 96 31 H 142/73 95 05/12/18 05:00 83 26 H 103/48 97 05/12/18 04:30 86 30 H 101/51 96 05/12/18 04:00 98.7 F 84 28 H 107/50 97 05/12/18 03:30 79 27 H 109/51 99 05/12/18 03:23 80 05/12/18 03:12 77 05/12/18 03:00 76 26 H 102/47 95 05/12/18 02:30 76 26 H 102/52 98 05/12/18 02:00 77 26 H 105/44 96 05/12/18 01:30 84 26 H 111/54 96 05/12/18 01:00 83 33 H 104/48 100 05/12/18 00:30 77 26 H 95/53 95 05/12/18 00:00 98.3 F 79 29 H 106/54 91 L 05/11/18 23:45 84 28 H 106/47 96 05/11/18 23:30 81 26 H 99/45 96 05/11/18 23:26 78 05/11/18 23:08 77 05/11/18 23:00 78 27 H 98/52 95 05/11/18 22:30 80 26 H 95/39 94 L 05/11/18 22:00 88 30 H 117/47 97 05/11/18 21:45 80 28 H 100/44 94 L 05/11/18 21:30 79 27 H 104/41 97 05/11/18 21:15 81 28 H 91/62 96 05/11/18 21:05 76 05/11/18 21:00 76 26 H 98/37 99 05/11/18 20:54 74 05/11/18 20:45 75 28 H 97/43 100 05/11/18 20:30 73 27 H 101/39 100 05/11/18 20:15 71 25 H 94/40 100 05/11/18 20:00 98.3 F 70 25 H 85/38 100 05/11/18 19:45 69 27 H 98/34 100 05/11/18 19:30 71 26 H 96/39 100 05/11/18 19:05 78 31 H 99/51 100 05/11/18 18:09 105/55 05/11/18 18:05 80 103/54 99 05/11/18 17:00 12 L 96/50 98 05/11/18 16:30 108 H 114/51 98 05/11/18 16:05 105 H 26 H 05/11/18 15:55 108 H 26 H 05/11/18 15:50 110 H 18 151/66 98 05/11/18 15:30 114 H 18 173/72 97 05/11/18 15:22 118 H 18 240/109 97 05/11/18 15:14 97.9 F 116 H 16 210/100 82 L Intake and Output 05/11/18 05/12/18 05/12/18 22:59 06:59 14:59 Intake Total 3215.761 350.665 Output Total 130 480 Balance 3085.761 -129.335 Intake: IV 3097.5 342.5 Dextrose 5%-0.45% NaCl 1, 60 180 000 ml @ 20 mls/hr IV . Q24H [facility] Rx#:[id number] Magnesium Sulfate-D5w Pmx 100 1 gm In Dextrose/Water 1 100ml.bag @ 100 mls/hr IVPB Q1H [facility] Rx#: [id number] Piperacillin-Tazobactam 3 37.5 62.5 .375 gm In Dextrose/Water 1 50ml.bag @ 12.5 mls/hr IVPB Q8H [facility] Rx#: [id number] Sodium Chloride 0.9% 1, 3000 000 ml @ 999 mls/hr IV . Q1H1M [facility] Rx#:[id number] Intake, IV Titration 118.261 8.165 Amount Propofol 1,000 mg In 118.261 8.165 Empty Bag 1 bag @ Titrate IV .Q0M [facility] Rx#: [id number] Output: Urine 130 480 Other: Voiding Method Indwelling Catheter Indwelling Catheter Weight 108.9 kg 115.1 kg - Constitutional General appearance: no acute distress - Respiratory Respiratory: bilateral: rales - Cardiovascular Rhythm: regular Heart sounds: normal: S1, S2 Abnormal Heart Sounds: systolic murmur Results 05/12/18 04:56 05/12/18 04:56 Cardiac Enzymes 05/11/18 05/11/18 Range/Units 15:25 15:25 AST 37 H (14-36) U/L CK-MB (CK-2) 2.0 (0.0-2.4) ng/mL Troponin I <0.012 (0.000-0.034) ng/mL Coagulation 05/11/18 Range/Units 15:25 PT 10.0 (9.0-12.0) sec APTT 22.4 (22.0-30.0) sec CBC 05/11/18 05/12/18 Range/Units 15:25 04:56 WBC 22.9 H 22.3 H (3.8-10.6) k/uL RBC 5.24 4.59 (3.80-5.40) m/uL Hgb 15.2 12.9 (11.4-16.0) gm/dL Hct 49.0 H 41.5 (34.0-46.0) % Plt Count 461 H 246 (150-450) k/uL Comprehensive Metabolic Panel 05/11/18 05/12/18 Range/Units 15:25 04:56 Sodium 145 140 (137-145) mmol/L Potassium 5.0 4.7 (3.5-5.1) mmol/L Chloride 101 106 (98-107) mmol/L Carbon Dioxide 26 23 (22-30) mmol/L BUN 25 H 27 H (7-17) mg/dL Creatinine 0.80 0.70 (0.52-1.04) mg/dL Glucose 274 H 189 H (74-99) mg/dL Calcium 9.5 8.7 (8.4-10.2) mg/dL AST 37 H (14-36) U/L ALT 22 (9-52) U/L Alkaline Phosphatase 143 H (38-126) U/L Total Protein 8.1 (6.3-8.2) g/dL Albumin 4.6 (3.5-5.0) g/dL Current Medications Generic Name Dose Route Start Last Admin Trade Name Freq PRN Reason Stop Dose Admin Albuterol/Ipratropium 3 ml 05/11/18 16:00 05/12/18 07:09 Duoneb 0.5 Mg-3 Mg/3 Ml Soln INHALATION 3 ml RT-Q4H [facility]ANJ[facility] Administration Albuterol/Ipratropium 3 ml 05/11/18 15:31 Duoneb 0.5 Mg-3 Mg/3 Ml Soln INHALATION RT-Q2H PRN Shortness Of Breath Or Wheezing Chlorhexidine Gluconate 15 ml 05/11/18 21:00 05/11/18 20:21 Peridex MUCOUS MEM 15 ml BID [facility]ANJAN Administration Heparin Sodium (Porcine) 5,000 unit 05/12/18 00:00 05/11/18 23:57 Heparin SQ 5,000 unit Q8HR [facility] Administration Propofol 1,000 mg/ IV Solution 100 mls @ 0 mls/hr 05/11/18 15:45 05/11/18 23: 00 IV 30 mcg/kg/min .Q0M [facility] 19.6 mls/hr Titration Protocol Titrate Dextrose/Sodium Chloride 1,000 mls @ 20 mls/hr 05/11/18 17:30 05/11/18 18:02 Dextrose 5%-1/2ns Iv Soln IV 20 mls/hr .Q24H [facility] Administration Levofloxacin 750 mg/ IV 150 mls @ 100 mls/hr 05/12/18 18:00 Solution IVPB Q24H [facility] Piperacillin/Tazobactam/ 50 mls @ 12.5 mls/hr 05/12/18 04:00 05/12/18 05:13 Dextrose 3.375 gm/ IV Solution IVPB 12.5 mls/hr Q8H [facility] Administration Norepinephrine Bitartrate 16 mg in 250 mls @ 0 mls/hr 05/11/18 23:15 Levophed-0.9% Nacl 16 Mg/250ml Pmx IV .Q0M [facility] Protocol Titrate Magnesium Sulfate/Dextrose 1 100 mls @ 100 mls/hr 05/12/18 06:15 05/12/18 06: 44 gm/ IV Solution IVPB 05/12/18 08:14 100 mls/hr Q1H [facility] Administration Insulin Aspart 0 unit 05/12/18 00:00 05/12/18 05:18 Novolog SQ 2 unit Q6HR [facility] Administration Protocol Lorazepam 2 mg 05/11/18 15:31 Ativan IV Q1HR PRN Severe Agitation Lorazepam 1 mg 05/11/18 15:31 Ativan IV Q1HR PRN Mild Agitation Methylprednisolone Sodium Succinate 60 mg 05/11/18 18:00 05/12/18 05:13 Solu-Medrol IV 60 mg Q6HR [facility] Administration Miscellaneous Information 1 each 05/11/18 17:24 Pneumonia Protocol Utilized PO ONCE PRN Per Protocol Miscellaneous Information 1 each 05/12/18 06:02 Magnesium Per Protocol MISCELLANE DAILY PRN Per Protocol Protocol Naloxone HCl 0.2 mg 05/11/18 17:21 Narcan IV Q2M PRN Opioid Reversal Pantoprazole Sodium 40 mg 05/11/18 17:00 05/11/18 18:03 Protonix IVP 40 mg DAILY [facility] Administration Propafenone HCl 150 mg 05/11/18 21:00 05/11/18 21:16 Rythmol PO 150 mg BID [facility]ANJ[facility] Administration Intake and Output 05/11/18 05/12/18 05/12/18 22:59 06:59 14:59 Intake Total 3215.761 350.665 Output Total 130 480 Balance 3085.761 -129.335 Intake: IV 3097.5 342.5 Dextrose 5%-0.45% NaCl 1, 60 180 000 ml @ 20 mls/hr IV . Q24H [facility] Rx#:[id number] Magnesium Sulfate-D5w Pmx 100 1 gm In Dextrose/Water 1 100ml.bag @ 100 mls/hr IVPB Q1H [facility] Rx#: [id number] Piperacillin-Tazobactam 3 37.5 62.5 .375 gm In Dextrose/Water 1 50ml.bag @ 12.5 mls/hr IVPB Q8H [facility] Rx#: [id number] Sodium Chloride 0.9% 1, 3000 000 ml @ 999 mls/hr IV . Q1H1M [facility] Rx#:[id number] Intake, IV Titration 118.261 8.165 Amount Propofol 1,000 mg In 118.261 8.165 Empty Bag 1 bag @ Titrate IV .Q0M [facility] Rx#: [id number] Output: Urine 130 480 Other: Voiding Method Indwelling Catheter Indwelling Catheter Weight 108.9 kg 115.1 kg 05/12/18 04:56 05/12/18 04:56 Assessment and Plan Assessment: Assessment #1 acute respiratory failure #2 cardiopulmonary arrest #3 possible bilateral pneumonia #4 congestive heart failure secondary to systolic dysfunction and valvular heart disease #5 valvular heart disease with severe mitral stenosis and moderate to severe aortic stenosis #6 obstructive sleep apnea #7 morbid obesity Plan #1 currently the patient is intubated and she is on ventilator. Art Tracer on the case #2 she is getting treated for bilateral pneumonia #3 the blood pressure has been stable so far. I am going to add small dose of IV diuretics to the current medical regimen #4 the echocardiogram was reviewed and described above #5 follow-up with the patient.
[2018-05-12] MEDS: CHLORHEXIDINE GLUCONATE 15 ML CUP MUCOUS MEM SCH ×2 (09:14→20:01)
[2018-05-12] MEDS: HEPARIN SODIUM,PORCINE 5,000 UNIT/ML 1 ML VIAL SQ SCH ×2 (09:15→17:20)
[2018-05-12] MEDS: PROPAFENONE 150 MG TAB PO SCH ×2 (09:15→20:03)
[2018-05-12] MEDS: FUROSEMIDE 10 MG/ML 4 ML VIAL IV SCH (09:15)
[2018-05-12] MEDS: PANTOPRAZOLE 40 MG/10 ML VIAL IVP SCH (09:15)
--- NOTE | 2018-05-12 09:29 | XR ---
EXAMINATION TYPE: XR chest 1V portable DATE OF EXAM: 05/12/2018 COMPARISON: NONE HISTORY: Tube placement. Ventilatory dependent respiratory failure. TECHNIQUE: Single frontal view of the chest is obtained. FINDINGS: There is stable positioning of the endotracheal tube, enteric tube and left-sided subclavi an central venous catheter. There is slight improved aeration of the right lateral lung although mult ifocal patchy opacities remain most consolidative within the right lung apex and right lung base. The se are also seen within the perihilar regions and left lung base as well as the retrocardiac airspace . Cardiomediastinal silhouette is mildly enlarged and partially obscured. No pneumothorax. Osseous st ructures are intact. There is redemonstration of right hemidiaphragm elevation. IMPRESSION: Mild improved aeration of the right midlung, otherwise stable lines, tubes, and multifoc al opacities that may represent confluent edema or pneumonia.
[2018-05-12] MEDS: PROPOFOL 1,000 MG in EMPTY BAG 1 BAG IV SCH ×4 (10:07→22:06)
[2018-05-12] MEDS: SODIUM CHLORIDE 0.9% 1,000 ML IV SCH (11:00)
[2018-05-12 11:38] LABS: Appearance,Urine Clear (Clear); Bilirubin,Urine Negative (Negative); Blood,Urine Negative (Negative); Color,Urine Colorless; Glucose,Urine (UA) Negative (Negative); Ketones,Urine Negative (Negative); Leukocyte Esterase,Urine Negative (Negative); Nitrite,Urine Negative (Negative); Protein,Urine Negative (Negative); Specific Gravity,Urine 1.008 (1.001-1.035); Urobilinogen,Urine <2.0 mg/dL (<2.0)
[2018-05-12 12:24] LABS: Glucose,Whole Blood 153 mg/dL (75-99)
--- NOTE | 2018-05-12 16:10 | P.PN ---
Subjective Progress Note Date: 05/12/18 A 77-year-old morbidly obese female patient with known history of obstructive sleep apnea maintained on BiPAP therapy on outpatient basis and addition to chronic bronchial asthma and significant limitation in exercise capacity secondary to her age body habitus and comorbidities, presented to the hospital because of an acute respiratory failure. I interviewed the daughter. Apparently the patient was at [employer] studies and she was getting progressively more short of breath. After arriving home she did [id number] breathing treatments without much relief. Ultimately she called her daughter who arrived to the scene and she saw that her mother was having more chest congestion, respirator distress, wheezing, and she was headed into respiratory failure. EMS was called to the scene. Upon arrival of EMS, the patient's pulse ox was in the low 70s pH was placed on on the percent nonrebreather facemask as she remained hypoxic and following that the patient was placed on BiPAP. The patient was moved to the emergency department. The patient was seen immediately after she arrived the ED. She was hypoxic, and she was cold and clammy and salmon color and cyanotic. As we were getting ready to intubate the patient, the patient lost pulse briefly and she became bradycardic. She went to the [facility]. She received a dose of epinephrine. She was started on CPR. Within 1 minute she recovered her pulse and the blood pressure. She was intubated and placed on a mechanical ventilator. She currently has a 7.[address] She is an assist-control mode of ventilation at the rate of 26, tidal volume of 400, FiO2 of 100% and a PEEP of 5. Immediately postintubation the blood pressure improved and she had a systolic above 200. She was started on propofol for sedation and her current systolic blood pressure in the 150s. A Poe catheter was inserted. The peak pressures in the 38-40 range. Static pressures around 32. The patient has significant bronchospasm and wheezing. A chest x-ray was done post intubation and post line placement and the chest x- ray showed no evidence of any pneumothorax. Bilateral air space disease was present in the perihilar regions in the lower lobes bilaterally right more than left. ET tube and NG tube were in good location. The patient also had a left subclavian triple-lumen catheter that was inserted without any complications. She was started on IV Zosyn knowing that the patient also briefly aspirated and vomited at the time of the intubation. Labs showed a white cell count of 22. The postintubation blood gas showed a pH of 7.21 with a pCO2 of 63 and pO2 of 88 and this blood gases on 100% FiO2. Initial lactic acid level was at 5.9 On today's evaluation of 05/12/2018 I'm seeing this patient for a follow-up. The patient remains intubated on a mechanical ventilator. Sedated with Diprivan at 30 mics per KG per minute. She is well sedated and she is synchronous with the mechanical ventilator. She is an assist-control mode of ventilation at the rate of 26 with a tidal volume of 400 and FiO2 of 60% with a PEEP of 5. The patient's chest x-ray from today is showing some mild improvement examination of the right midlung field. Otherwise the rest of the signs are all stable. ET tube is in a good location. The patient has consolidation of the right lung involving the right apex and the right lung base. There is also some perihilar pulmonary infiltrates bilaterally addition to some cardiomegaly. There is chronic elevation of the right hemidiaphragm. The blood gases from today showed a pH of 7.33 with a pCO2 of 47 and pO2 of 77 and it wasn't an FiO2 of 60%. The lactic acid level is down to 1.9 from 2.9 in addition. The patient was given briefly a sedation holiday and she was able to follow commands, simple commands and following that the patient was placed back on sedation. She did not require any pressors and the patient is maintaining home blood pressure. She was seen by cardiology today. Echocardiogram was done. The echo showed normal LV function with hypertensive heart disease and evidence of severe mitral stenosis with a mean gradient across the mitral valve of 20 mmHg as well as moderate to severe aortic stenosis with a mean gradient across the valve of 30 mmHg. The patient's cardiac rhythm is still sinus. She remains on broad-spectrum antibiotic coverage with a combination of Zosyn and Levaquin. The sputum cultures still negative for now. Blood cultures have been sent and the results are still negative for now. White cell count is elevated at 22.3. The patient was started on Lasix by cardiology 40 mg IV every 24 hours. She is also normal state rate of 40 mL an hour for now. Objective - Vital Signs Vital signs: Vital Signs Temp 99.4 F 07/12/18 12:00 Pulse 108 H 05/12/18 15:42 Resp 32 H 05/12/18 14:30 BP 137/62 05/12/18 14:30 Pulse Ox 97 05/12/18 14:30 Intake & Output 05/11/18 05/12/18 05/12/18 18:59 06:59 18:59 Intake Total 50.048 3516.378 556.484 Output Total 610 1607 Balance 50.048 2906.378 -1050.516 Weight 108.9 kg 115.1 kg 115.1 kg Intake: IV 3440.0 197.5 Dextrose 5%-0.45% NaCl 1, 240 60 000 ml @ 20 mls/hr IV . Q24H [facility] Rx#:[id number] Magnesium Sulfate-D5w Pmx 100 100 1 gm In Dextrose/Water 1 100ml.bag @ 100 mls/hr IVPB Q1H [facility] Rx#: [id number] Piperacillin-Tazobactam 3 100.0 37.5 .375 gm In Dextrose/Water 1 50ml.bag @ 12.5 mls/hr IVPB Q8H [facility] Rx#: [id number] Sodium Chloride 0.9% 1, 3000 000 ml @ 999 mls/hr IV . Q1H1M [facility] Rx#:[id number] Intake, IV Titration 50.048 76.378 253.984 Amount Propofol 1,000 mg In 50.048 76.378 93.984 Empty Bag 1 bag @ Titrate IV .Q0M [facility] Rx#: [id number] Sodium Chloride 0.9% 1, 160 000 ml @ 40 mls/hr IV . Q24H [facility] Rx#:[id number] Tube Feeding 45 Other 60 Output: Urine 610 1607 Other: Voiding Method Indwelling Catheter Indwelling Catheter ABP, PAP, CO, CI - Last Documented Arterial Blood Pressure 24/24 - Exam Patient currently intubated on mechanical ventilator, comfortable on propofol. Orogastric and orotracheal tube are both in place. Head exam was generally normal. There was no scleral icterus or corneal arcus. Mucous membranes were moist. Neck is short and supple and there is mild JVDs no goiter or neck masses appreciated. Orogastric and orotracheal tube are both in place and the patient has a left subclavian triple-lumen catheter in place. Lungs sounds are diminished bilaterally along with scattered rhonchi and scattered wheezes heard throughout the lung hillman bilaterally and crackles in the lung bases Heart sounds are irregular positive S1-S2 and there is no significant murmurs appreciated.Cardiac exam revealed the PMI to be normally situated and sized. The rhythm was regular and no extrasystoles were noted during several minutes of auscultation. The first and second heart sounds were normal and physiologic splitting of the second heart sound was noted. There were no murmurs, rubs, clicks, or gallops. Abdominal exam revealed normal bowel sounds. The abdomen was soft, non-tender, and without masses, organomegaly, or appreciable enlargement of the abdominal aorta. Overall the patient is obese and the patient's organs cannot be accurately palpated. No direct tenderness or rebound tensile guarding Examination of the extremities revealed easily palpable radial, femoral and pedal pulses. There was no cyanosis, clubbing or edema. Examination of the skin revealed no evidence of significant rashes, suspicious appearing nevi or other concerning lesions. Neurologically the patient is sedated and calm and comfortable most for extremities to painful stimulation - Labs CBC & Chem 7: 05/12/18 04:56 05/12/18 04:56 Labs: Abnormal Lab Results - Last 24 Hours (Table) 05/11/18 05/11/18 05/11/18 Range/Units 15:25 15:25 15:25 WBC (3.8-10.6) k/uL Neutrophils # (1.3-7.7) k/uL Neutrophils # (Manual) 11.60 H (1.3-7.7) k/uL Lymphocytes # (1.0-4.8) k/uL Lymphocytes # (Manual) 9.85 H (1.0-4.8) k/uL Eosinophils # (Manual) 0.92 H (0-0.7) k/uL INR (<1.2) ABG pH (7.35-7.45) ABG pCO2 (35-45) mmHg ABG pO2 (83-108) mmHg ABG HCO3 (21-25) mmol/L ABG Total CO2 (19-24) mmol/L ABG O2 Saturation (94-97) % BUN 25 H (7-17) mg/dL Glucose 274 H (74-99) mg/dL POC Glucose (mg/dL) (75-99) mg/dL Plasma Lactic Acid Selwyn (0.7-2.0) mmol/L Magnesium (1.6-2.3) mg/dL AST 37 H (14-36) U/L Alkaline Phosphatase 143 H (38-126) U/L Troponin I (0.000-0.034) ng/mL TSH 7.970 H (0.465-4.680) mIU/L Free T4 0.70 L (0.78-2.19) ng/dL 05/11/18 05/11/18 05/11/18 Range/Units 15:25 15:56 16:16 WBC (3.8-10.6) k/uL Neutrophils # (1.3-7.7) k/uL Neutrophils # (Manual) (1.3-7.7) k/uL Lymphocytes # (1.0-4.8) k/uL Lymphocytes # (Manual) (1.0-4.8) k/uL Eosinophils # (Manual) (0-0.7) k/uL INR (<1.2) ABG pH 7.21 L (7.35-7.45) ABG pCO2 63 H (35-45) mmHg ABG pO2 (83-108) mmHg ABG HCO3 (21-25) mmol/L ABG Total CO2 27 H (19-24) mmol/L ABG O2 Saturation (94-97) % BUN (7-17) mg/dL Glucose (74-99) mg/dL POC Glucose (mg/dL) (75-99) mg/dL Plasma Lactic Acid Selwyn 5.9 H* (0.7-2.0) mmol/L Magnesium 2.5 H (1.6-2.3) mg/dL AST (14-36) U/L Alkaline Phosphatase (38-126) U/L Troponin I (0.000-0.034) ng/mL TSH (0.465-4.680) mIU/L Free T4 (0.78-2.19) ng/dL 05/11/18 05/11/18 05/11/18 Range/Units 19:20 19:27 20:23 WBC (3.8-10.6) k/uL Neutrophils # (1.3-7.7) k/uL Neutrophils # (Manual) (1.3-7.7) k/uL Lymphocytes # (1.0-4.8) k/uL Lymphocytes # (Manual) (1.0-4.8) k/uL Eosinophils # (Manual) (0-0.7) k/uL INR (<1.2) ABG pH 7.32 L (7.35-7.45) ABG pCO2 50 H (35-45) mmHg ABG pO2 178 H (83-108) mmHg ABG HCO3 26 H (21-25) mmol/L ABG Total CO2 27 H (19-24) mmol/L ABG O2 Saturation 99.5 H (94-97) % BUN (7-17) mg/dL Glucose (74-99) mg/dL POC Glucose (mg/dL) 166 H (75-99) mg/dL Plasma Lactic Acid Selwyn 2.9 H* (0.7-2.0) mmol/L Magnesium (1.6-2.3) mg/dL AST (14-36) U/L Alkaline Phosphatase (38-126) U/L Troponin I (0.000-0.034) ng/mL TSH (0.465-4.680) mIU/L Free T4 (0.78-2.19) ng/dL 05/12/18 05/12/18 05/12/18 Range/Units 00:03 04:28 04:56 WBC (3.8-10.6) k/uL Neutrophils # (1.3-7.7) k/uL Neutrophils # (Manual) (1.3-7.7) k/uL Lymphocytes # (1.0-4.8) k/uL Lymphocytes # (Manual) (1.0-4.8) k/uL Eosinophils # (Manual) (0-0.7) k/uL INR (<1.2) ABG pH 7.33 L (7.35-7.45) ABG pCO2 47 H (35-45) mmHg ABG pO2 77 L (83-108) mmHg ABG HCO3 (21-25) mmol/L ABG Total CO2 26 H (19-24) mmol/L ABG O2 Saturation (94-97) % BUN 27 H (7-17) mg/dL Glucose 189 H (74-99) mg/dL POC Glucose (mg/dL) 190 H (75-99) mg/dL Plasma Lactic Acid Selwyn (0.7-2.0) mmol/L Magnesium (1.6-2.3) mg/dL AST (14-36) U/L Alkaline Phosphatase (38-126) U/L Troponin I (0.000-0.034) ng/mL TSH (0.465-4.680) mIU/L Free T4 (0.78-2.19) ng/dL 05/12/18 05/12/18 05/12/18 Range/Units 04:56 05:00 05:16 WBC 22.3 H (3.8-10.6) k/uL Neutrophils # 20.8 H (1.3-7.7) k/uL Neutrophils # (Manual) (1.3-7.7) k/uL Lymphocytes # 0.6 L (1.0-4.8) k/uL Lymphocytes # (Manual) (1.0-4.8) k/uL Eosinophils # (Manual) (0-0.7) k/uL INR (<1.2) ABG pH (7.35-7.45) ABG pCO2 (35-45) mmHg ABG pO2 (83-108) mmHg ABG HCO3 (21-25) mmol/L ABG Total CO2 (19-24) mmol/L ABG O2 Saturation (94-97) % BUN (7-17) mg/dL Glucose (74-99) mg/dL POC Glucose (mg/dL) 152 H (75-99) mg/dL Plasma Lactic Acid Selwyn (0.7-2.0) mmol/L Magnesium (1.6-2.3) mg/dL AST (14-36) U/L Alkaline Phosphatase (38-126) U/L Troponin I 0.043 H* (0.000-0.034) ng/mL TSH (0.465-4.680) mIU/L Free T4 (0.78-2.19) ng/dL 05/12/18 05/12/18 05/12/18 Range/Units 07:58 07:58 12:22 WBC (3.8-10.6) k/uL Neutrophils # (1.3-7.7) k/uL Neutrophils # (Manual) (1.3-7.7) k/uL Lymphocytes # (1.0-4.8) k/uL Lymphocytes # (Manual) (1.0-4.8) k/uL Eosinophils # (Manual) (0-0.7) k/uL INR 1.2 H (<1.2) ABG pH (7.35-7.45) ABG pCO2 (35-45) mmHg ABG pO2 (83-108) mmHg ABG HCO3 (21-25) mmol/L ABG Total CO2 (19-24) mmol/L ABG O2 Saturation (94-97) % BUN (7-17) mg/dL Glucose (74-99) mg/dL POC Glucose (mg/dL) 153 H (75-99) mg/dL Plasma Lactic Acid Selwyn 2.4 H* (0.7-2.0) mmol/L Magnesium (1.6-2.3) mg/dL AST (14-36) U/L Alkaline Phosphatase (38-126) U/L Troponin I (0.000-0.034) ng/mL TSH (0.465-4.680) mIU/L Free T4 (0.78-2.19) ng/dL Microbiology - Last 24 Hours (Table) 05/11/18 21:09 Gram Stain - Preliminary Sputum Sputum Culture - Preliminary Assessment and Plan Plan: Assessment 1 acute hypoxic respiratory failure with bilateral lower lobe pneumonia and possibly component of CHF. The patient presented emergency department with acute respiratory arrest, intubated and placed on a mechanical ventilator On 05/12/2018 the patient remains intubated on a mechanical ventilator. There is improvement in oxygenation and FiO2 has been drop down to 60%. There is also further weaning the FiO2 down knowing that the patient's pulse ox and the pO2 is above 100. Meanwhile, the sputum cultures still pending. The patient is on a broad-spectrum antibiotic coverage with a combination of Zosyn and Levaquin. The patient is still sedated on a mechanical ventilator, intubated. 2 bilateral lower lobe pneumonia with airspace disease and consolidations. Rule out aspiration pneumonia. Rule out with acquired pneumonia. Suspect bacterial pneumonia. 3 acute cardiac pulmonary arrest with brief loss in progress where the patient received CPR and received a dose of epinephrine with return of spontaneous circulation. Currently on no pressors. No signs of any hypoxic encephalopathy and the patient was given a brief sedation holiday and she was able to follow simple commands without any major difficulties 4 lactic acidosis secondary to above, improving 5 leukocytosis secondary to above 6 morbid obesity with a BMI of 43.4 7 obstructive sleep apnea 8 severe persistent bronchial asthma 9 history of right hemidiaphragmatic plication for unilateral paralysis 10 moderate to severe severe aortic stenosis and mitral stenosis, with a preserved LV function as evident on the echocardiogram 11 history of TIA 12 nephrolithiasis 13 gouty arthritis 14 hypothyroidism 13 hypertension 16 hyperlipidemia 17 history of atrial fibrillation on Rythmol and her current rhythm is sinus 18 acid reflux 19 gout 20 degenerative arthritis Plan Continue the vent support. Keep the patient sedated for now. Sedation holiday was given. Continue Zosyn and Levaquin. Obtain final sputum cultures. Agree on daily Lasix dose is 40 mg IV push. The IV Fluids to 40 ML an Hour. Initiate Tube Feeds. Not Ready for Extubation yet. The Patient Still Has Bilateral Pulmonary Infiltrates Most on the Right Upper and Right Lower Lobe Probably to the Underlying Pneumonia. The patient will be kept in ICU. We'll continue the same medical treatment. Cardiology input was appreciated. Continue treatment with thyroid hormone. We will switch the patient to a Synthroid 50 g by mouth daily basis instead of [place] Thyroid as the patient's TSH was found to be quite elevated with a low free T4. Family was updated on the condition and the patient be kept in ICU continue to follow. This is a critically care evaluation that was done and more than 40 minutes. Time with Patient: Greater than 30
[2018-05-12 17:16] LABS: Glucose,Whole Blood 160 mg/dL (75-99)
[2018-05-12] MEDS: LEVOFLOXACIN 750MG-D5W PMX 750 MG in DEXTROSE/WATER 1 150ML.BAG IVPB SCH (17:20)
--- NOTE | 2018-05-12 17:40 | ECHOF ---
Referral Reason:assess LVF, aortic stenosis MEASUREMENTS -------- HEIGHT: 157.5 cm WEIGHT: 114.8 kg BP: 112/58 IVSd: 1.5 cm (0.6 - 1.1) LVIDd: 2.9 cm (3.9 - 5.3) LVPWd: 1.6 cm (0.6 - 1.1) IVSs: 2.0 cm LVIDs: 2.4 cm LVPWs: 1.5 cm LAESV Index (A-L): 63.91 ml/m Ao Diam: 3.2 cm (2.0 - 3.7) LA Diam: 5.8 cm (2.7 - 3.8) MV E Dylan: 1.39 m/s MV DecT: 255 ms MV A Dylan: 2.00 m/s MV E/A Ratio: 0.69 AV maxP.92 mmHg AV meanP.72 mmHg RAP: 20.00 mmHg RVSP: 64.17 mmHg FINDINGS -------- Sinus rhythm. The left ventricular size is normal. There is moderate concentric left ventricular hypertrophy. O verall left ventricular systolic function is low-normal with, an EF between 50 - 55 %. The right ventricle is normal in size. The left atrium is markedly dilated. LA is severely dilated >40 ml/m2 The right atrial size is normal. There is severe aortic stenosis present. Peak/mean gradient across the Aortic Valve is 52.92mmHg / 29.72mmHg. Moderate mitral regurgitation is present. The peak and mean MV gradients are 33.29mmHg 19.40mmHg a s measured by doppler. Severe mitral stenosis. Mild tricuspid regurgitation present. There is moderate to severe pulmonary hypertension. The rig ht ventricular systolic pressure, as measured by Doppler, is 64.17mmHg. The aortic root size is normal. The inferior vena cava is dilated with no significant inspiratory collapse which is consistent estima dana right atrial pressure of >20 mmHg. Echo free space represents a pericardial fat pad. CONCLUSIONS -------- 1. The left ventricular size is normal. 2. There is moderate concentric left ventricular hypertrophy. 3. Overall left ventricular systolic function is low-normal with, an EF between 50 - 55 %. 4. The right ventricle is normal in size. 5. The left atrium is markedly dilated. 6. LA is severely dilated >40 ml/m2 7. The right atrial size is normal. 8. There is severe aortic stenosis present. 9. Peak/mean gradient across the Aortic Valve is 52.92mmHg / 29.72mmHg. 10. Moderate mitral regurgitation is present. 11. The peak and mean MV gradients are 33.29mmHg 19.40mmHg as measured by doppler. 12. Severe mitral stenosis. 13. Mild tricuspid regurgitation present. 14. There is moderate to severe pulmonary hypertension. 15. The right ventricular systolic pressure, as measured by Doppler, is 64.17mmHg. 16. The aortic root size is normal. 17. The inferior vena cava is dilated with no significant inspiratory collapse which is consistent es timated right atrial pressure of >20 mmHg. 18. Echo free space represents a pericardial fat pad. CLUTCH OPERATOR: Vikki Raymundo RDCS
--- NOTE | 2018-05-12 22:16 | P.HPIM ---
History of Present Illness H&P Date: 05/12/18 Chief Complaint: Shortness of breath Patient is on 73-year-old female with a known history of obstructive sleep apnea on biPAP, Hypothyroidism, valvular heart disease with aortic stenosis and congestive heart failure and multiple other medical problems including morbid obesity presented to hospital with worsening shortness of breath. Patient was at [facility] where she had progressive shortness of breath. Patient's pulse ox was low 70s upon EMS arrival. Patient was placed on 100% nonrebreather but the patient remained hypoxic. Patient was placed on BiPAP. And was transferred to ER. Patient was given breathing treatments while in the ER without much relief. Patient was subsequently intubated due to acute hypoxic respiratory failure. Currently patient is intubated and is in the medical intensive care unit. Chest x-ray showed no evidence of pneumothorax. Bilateral air space disease was present in the perihilar region in the lower lobes bilaterally right more than left. WC count was 22 on admission. Lactic acid 5.9 on admission ABG showed pH of 7.21 pCO2 63 and PaO2 88 with 100% FiO2. Patient is currently on Solu-Medrol 60 g every 6 hourly along with duo nebs and antibiotics in the form of levofloxacin and Zosyn. Cardiology and pulmonary is following. Chest x-ray this morning showed mildly improved aeration of the right lung otherwise stable 2-D echocardiogram showed ejection fraction 50-55% with severe severe mitral stenosis and severe aortic stenosis. Review of Systems Patient is currently intubated and sedated. Complete review of systems could not be apparent from the patient Past Medical History Past Medical History: Asthma, Chest Pain / Angina, Heart Failure, COPD, GERD/ Reflux, Hyperlipidemia, Hypertension, Pneumonia, Sleep Apnea/CPAP/BIPAP, Thyroid Disorder Additional Past Medical History / Comment(s): Valve Disease/AORTIC STENOSIS, PALPITATIONS, KIDNEY STONES. GOUT, ARTHRITS. History of Any Multi-Drug Resistant Organisms: None Reported Past Surgical History: Cholecystectomy, Heart Catheterization, Hysterectomy Additional Past Surgical History / Comment(s): diaphram surgery (VATS), cataract DONNIE, HEART CATH RADIAL APPROACH -SMALL 20% BLOCKAGE Past Anesthesia/Blood Transfusion Reactions: No Reported Reaction Past Psychological History: No Psychological Hx Reported Smoking Status: Never smoker Past Alcohol Use History: None Reported Past Drug Use History: None Reported - Past Family History Mother Family Medical History: Myocardial Infarction ([place]) Additional Family Medical History / Comment(s): AGE 71 Father Additional Family Medical History / Comment(s): AGE 67 FROM ALS Medications and Allergies Home Medications Medication Instructions Recorded Confirmed Type Cetirizine HCl [Zyrtec] 10 mg PO HS 05/31/14 05/11/18 History Esomeprazole Magnesium [NexIUM] 40 mg PO AC-SUPPER 05/31/14 05/11/18 History Furosemide [Lasix] 40 mg PO DAILY PRN 05/31/14 05/11/18 History Montelukast [Singulair] 10 mg PO HS 05/31/14 05/11/18 History Potassium Chloride ER [K-Dur 10] 10 meq PO DAILY 05/31/14 05/11/18 History Isosorbide Mononitrate [Imdur] 30 mg PO HS 06/01/14 05/11/18 History Propafenone [Rythmol] 150 mg PO BID 11/22/14 05/11/18 History Aspirin EC [Ecotrin] 325 mg PO DAILY 05/11/18 05/11/18 History Diltiazem Cd [Cardizem CD] 300 mg PO HS 05/11/18 05/11/18 History Ezetimibe [Zetia] 10 mg PO HS 05/11/18 05/11/18 History Fluticasone/Salmeterol [Advair 1 puff INHALATION RT-BID PRN 05/11/18 05/11/18 History 500-50 Diskus] Mirabegron [Myrbetriq] 25 mg PO DAILY 05/11/18 05/11/18 History Thyroid,Pork [[place] Thyroid] 60 mg PO DAILY 05/11/18 05/11/18 History Vitamin D+Mineral+Vit C 2 tab PO DAILY 05/11/18 05/11/18 History Allergies Allergy/AdvReac Type Severity Reaction Status Date / Time Sulfa (Sulfonamide Allergy Itching Verified 05/11/18 15:14 Antibiotics) MOLD Allergy Unknown Uncoded 05/11/18 15:14 SMOKE Allergy Unknown Uncoded 05/11/18 15:14 Physical Exam Vitals: Vital Signs Temp Pulse Resp BP Pulse Ox 05/12/18 07:27 92 05/12/18 07:13 94 05/12/18 07:00 96 28 H 119/60 96 05/12/18 06:30 92 27 H 114/55 96 05/12/18 06:00 91 26 H 109/54 96 05/12/18 05:30 96 31 H 142/73 95 05/12/18 05:00 83 26 H 103/48 97 05/12/18 04:30 86 30 H 101/51 96 05/12/18 04:00 98.7 F 84 28 H 107/50 97 05/12/18 03:30 79 27 H 109/51 99 05/12/18 03:23 80 05/12/18 03:12 77 05/12/18 03:00 76 26 H 102/47 95 05/12/18 02:30 76 26 H 102/52 98 05/12/18 02:00 77 26 H 105/44 96 05/12/18 01:30 84 26 H 111/54 96 05/12/18 01:00 83 33 H 104/48 100 05/12/18 00:30 77 26 H 95/53 95 05/12/18 00:00 98.3 F 79 29 H 106/54 91 L 05/11/18 23:45 84 28 H 106/47 96 05/11/18 23:30 81 26 H 99/45 96 05/11/18 23:26 78 05/11/18 23:08 77 05/11/18 23:00 78 27 H 98/52 95 05/11/18 22:30 80 26 H 95/39 94 L 05/11/18 22:00 88 30 H 117/47 97 05/11/18 21:45 80 28 H 100/44 94 L 05/11/18 21:30 79 27 H 104/41 97 05/11/18 21:15 81 28 H 91/62 96 05/11/18 21:05 76 05/11/18 21:00 76 26 H 98/37 99 05/11/18 20:54 74 05/11/18 20:45 75 28 H 97/43 100 05/11/18 20:30 73 27 H 101/39 100 05/11/18 20:15 71 25 H 94/40 100 05/11/18 20:00 98.3 F 70 25 H 85/38 100 05/11/18 19:45 69 27 H 98/34 100 05/11/18 19:30 71 26 H 96/39 100 05/11/18 19:05 78 31 H 99/51 100 05/11/18 18:09 105/55 05/11/18 18:05 80 103/54 99 05/11/18 17:00 12 L 96/50 98 05/11/18 16:30 108 H 114/51 98 05/11/18 16:05 105 H 26 H 05/11/18 15:55 108 H 26 H 05/11/18 15:50 110 H 18 151/66 98 05/11/18 15:30 114 H 18 173/72 97 05/11/18 15:22 118 H 18 240/109 97 05/11/18 15:14 97.9 F 116 H 16 210/100 82 L Intake and Output 05/11/18 05/12/18 05/12/18 22:59 06:59 14:59 Intake Total 3215.761 350.665 Output Total 130 480 Balance 3085.761 -129.335 Intake: IV 3097.5 342.5 Dextrose 5%-0.45% NaCl 1, 60 180 000 ml @ 20 mls/hr IV . Q24H [facility] Rx#:[id number] Magnesium Sulfate-D5w Pmx 100 1 gm In Dextrose/Water 1 100ml.bag @ 100 mls/hr IVPB Q1H [facility] Rx#: [id number] Piperacillin-Tazobactam 3 37.5 62.5 .375 gm In Dextrose/Water 1 50ml.bag @ 12.5 mls/hr IVPB Q8H [facility] Rx#: [id number] Sodium Chloride 0.9% 1, 3000 000 ml @ 999 mls/hr IV . Q1H1M [facility] Rx#:[id number] Intake, IV Titration 118.261 8.165 Amount Propofol 1,000 mg In 118.261 8.165 Empty Bag 1 bag @ Titrate IV .Q0M [facility] Rx#: [id number] Output: Urine 130 480 Other: Voiding Method Indwelling Catheter Indwelling Catheter Weight 108.9 kg 115.1 kg PHYSICAL EXAMINATION: Patient is lying in the bed comfortably, no acute distress, sedated and intubated.. HEENT: Normocephalic. Neck is supple. Pupils reactive. Nostrils clear. Oral cavity is moist. Ears reveal no drainage. Neck reveals no JVD, carotid bruits, or thyromegaly. CHEST EXAMINATION: Trachea is central. Symmetrical expansion. Endotracheal tube in place. Bibasilar diminished air entry. Prolonged expiration. CARDIAC: Normal S1, S2 with no gallops. No murmurs ABDOMEN: Soft. Bowel sounds normal. No organomegaly. No abdominal bruits. Extremities: reveal no edema. No clubbing or cyanosis Neurologically patient is currently sedated and intubated. No focal deficits noted Skin: No rash or skin lesions. Psychiatric: Could not be a cyst completely Musculoskeletal: No joint swelling or deformity. Results CBC & Chem 7: 05/12/18 04:56 05/12/18 04:56 Labs: Abnormal Lab Results - Last 24 Hours (Table) 05/11/18 05/11/18 05/11/18 Range/Units 15:25 15:25 15:25 WBC 22.9 H (3.8-10.6) k/uL Hct 49.0 H (34.0-46.0) % Plt Count 461 H (150-450) k/uL Neutrophils # (1.3-7.7) k/uL Neutrophils # (Manual) 11.60 H (1.3-7.7) k/uL Lymphocytes # (1.0-4.8) k/uL Lymphocytes # (Manual) 9.85 H (1.0-4.8) k/uL Eosinophils # (Manual) 0.92 H (0-0.7) k/uL INR (<1.2) ABG pH (7.35-7.45) ABG pCO2 (35-45) mmHg ABG pO2 (83-108) mmHg ABG HCO3 (21-25) mmol/L ABG Total CO2 (19-24) mmol/L ABG O2 Saturation (94-97) % BUN 25 H (7-17) mg/dL Glucose 274 H (74-99) mg/dL POC Glucose (mg/dL) (75-99) mg/dL Plasma Lactic Acid Selwyn (0.7-2.0) mmol/L Magnesium (1.6-2.3) mg/dL AST 37 H (14-36) U/L Alkaline Phosphatase 143 H (38-126) U/L Troponin I (0.000-0.034) ng/mL TSH 7.970 H (0.465-4.680) mIU/L Free T4 0.70 L (0.78-2.19) ng/dL 05/11/18 05/11/18 05/11/18 Range/Units 15:25 15:56 16:16 WBC (3.8-10.6) k/uL Hct (34.0-46.0) % Plt Count (150-450) k/uL Neutrophils # (1.3-7.7) k/uL Neutrophils # (Manual) (1.3-7.7) k/uL Lymphocytes # (1.0-4.8) k/uL Lymphocytes # (Manual) (1.0-4.8) k/uL Eosinophils # (Manual) (0-0.7) k/uL INR (<1.2) ABG pH 7.21 L (7.35-7.45) ABG pCO2 63 H (35-45) mmHg ABG pO2 (83-108) mmHg ABG HCO3 (21-25) mmol/L ABG Total CO2 27 H (19-24) mmol/L ABG O2 Saturation (94-97) % BUN (7-17) mg/dL Glucose (74-99) mg/dL POC Glucose (mg/dL) (75-99) mg/dL Plasma Lactic Acid Selwyn 5.9 H* (0.7-2.0) mmol/L Magnesium 2.5 H (1.6-2.3) mg/dL AST (14-36) U/L Alkaline Phosphatase (38-126) U/L Troponin I (0.000-0.034) ng/mL TSH (0.465-4.680) mIU/L Free T4 (0.78-2.19) ng/dL 05/11/18 05/11/18 05/11/18 Range/Units 19:20 19:27 20:23 WBC (3.8-10.6) k/uL Hct (34.0-46.0) % Plt Count (150-450) k/uL Neutrophils # (1.3-7.7) k/uL Neutrophils # (Manual) (1.3-7.7) k/uL Lymphocytes # (1.0-4.8) k/uL Lymphocytes # (Manual) (1.0-4.8) k/uL Eosinophils # (Manual) (0-0.7) k/uL INR (<1.2) ABG pH 7.32 L (7.35-7.45) ABG pCO2 50 H (35-45) mmHg ABG pO2 178 H (83-108) mmHg ABG HCO3 26 H (21-25) mmol/L ABG Total CO2 27 H (19-24) mmol/L ABG O2 Saturation 99.5 H (94-97) % BUN (7-17) mg/dL Glucose (74-99) mg/dL POC Glucose (mg/dL) 166 H (75-99) mg/dL Plasma Lactic Acid Selwyn 2.9 H* (0.7-2.0) mmol/L Magnesium (1.6-2.3) mg/dL AST (14-36) U/L Alkaline Phosphatase (38-126) U/L Troponin I (0.000-0.034) ng/mL TSH (0.465-4.680) mIU/L Free T4 (0.78-2.19) ng/dL 05/12/18 05/12/18 05/12/18 Range/Units 00:03 04:28 04:56 WBC (3.8-10.6) k/uL Hct (34.0-46.0) % Plt Count (150-450) k/uL Neutrophils # (1.3-7.7) k/uL Neutrophils # (Manual) (1.3-7.7) k/uL Lymphocytes # (1.0-4.8) k/uL Lymphocytes # (Manual) (1.0-4.8) k/uL Eosinophils # (Manual) (0-0.7) k/uL INR (<1.2) ABG pH 7.33 L (7.35-7.45) ABG pCO2 47 H (35-45) mmHg ABG pO2 77 L (83-108) mmHg ABG HCO3 (21-25) mmol/L ABG Total CO2 26 H (19-24) mmol/L ABG O2 Saturation (94-97) % BUN 27 H (7-17) mg/dL Glucose 189 H (74-99) mg/dL POC Glucose (mg/dL) 190 H (75-99) mg/dL Plasma Lactic Acid [place] (0.7-2.0) mmol/L Magnesium (1.6-2.3) mg/dL AST (14-36) U/L Alkaline Phosphatase (38-126) U/L Troponin I (0.000-0.034) ng/mL TSH (0.465-4.680) mIU/L Free T4 (0.78-2.19) ng/dL 05/12/18 05/12/18 05/12/18 Range/Units 04:56 05:00 05:16 WBC 22.3 H (3.8-10.6) k/uL Hct (34.0-46.0) % Plt Count (150-450) k/uL Neutrophils # 20.8 H (1.3-7.7) k/uL Neutrophils # (Manual) (1.3-7.7) k/uL Lymphocytes # 0.6 L (1.0-4.8) k/uL Lymphocytes # (Manual) (1.0-4.8) k/uL Eosinophils # (Manual) (0-0.7) k/uL INR (<1.2) ABG pH (7.35-7.45) ABG pCO2 (35-45) mmHg ABG pO2 (83-108) mmHg ABG HCO3 (21-25) mmol/L ABG Total CO2 (19-24) mmol/L ABG O2 Saturation (94-97) % BUN (7-17) mg/dL Glucose (74-99) mg/dL POC Glucose (mg/dL) 152 H (75-99) mg/dL Plasma Lactic Acid Selwyn (0.7-2.0) mmol/L Magnesium (1.6-2.3) mg/dL AST (14-36) U/L Alkaline Phosphatase (38-126) U/L Troponin I 0.043 H* (0.000-0.034) ng/mL TSH (0.465-4.680) mIU/L Free T4 (0.78-2.19) ng/dL 05/12/18 05/12/18 Range/Units 07:58 07:58 WBC (3.8-10.6) k/uL Hct (34.0-46.0) % Plt Count (150-450) k/uL Neutrophils # (1.3-7.7) k/uL Neutrophils # (Manual) (1.3-7.7) k/uL Lymphocytes # (1.0-4.8) k/uL Lymphocytes # (Manual) (1.0-4.8) k/uL Eosinophils # (Manual) (0-0.7) k/uL INR 1.2 H (<1.2) ABG pH (7.35-7.45) ABG pCO2 (35-45) mmHg ABG pO2 (83-108) mmHg ABG HCO3 (21-25) mmol/L ABG Total CO2 (19-24) mmol/L ABG O2 Saturation (94-97) % BUN (7-17) mg/dL Glucose (74-99) mg/dL POC Glucose (mg/dL) (75-99) mg/dL Plasma Lactic Acid Selwyn 2.4 H* (0.7-2.0) mmol/L Magnesium (1.6-2.3) mg/dL AST (14-36) U/L Alkaline Phosphatase (38-126) U/L Troponin I (0.000-0.034) ng/mL TSH (0.465-4.680) mIU/L Free T4 (0.78-2.19) ng/dL Microbiology - Last 24 Hours (Table) 05/11/18 21:09 Gram Stain - Preliminary Sputum Sputum Culture - Preliminary Thrombosis Risk Factor Assmnt - DVT/VTE Prophylaxis DVT/VTE Prophylaxis: Pharmacologic Prophylaxis ordered - Choose All That Apply Any of the Below Risk Factors Present?: Yes Each Factor Represents 1 point: Abnormal pulmonary function (COPD), Medical pt on bed rest, Obesity (BMI >25), Serious lung disease incl. pneumonia (< 1month) , Swollen legs (current) Other Risk Factors: Yes Each Risk Factor Represents 2 Points: Patient confined to bed Each Risk Factor Represents 3 Points: Age 75 years or older Other congenital or acquired thrombophilia - If yes, enter type in comment: No Thrombosis Risk Factor Assessment Total Risk Factor Score: 10 Thrombosis Risk Factor Assessment Level: High Risk Assessment and Plan Assessment: Acute hypoxic respiratory failure. Multifactorial secondary to pneumonia and CHF and COPD. Currently patient is intubated. Bilateral lower lobe pneumonia. Right greater than left Acute cardio pulmonary arrest with brief loss of pulse status post CPR and a dose of epinephrine with return of spontaneous circulation. Lactic acidosis 5.9 on admission improving Sepsis secondary to pneumonia Obstructive sleep apnea on BiPAP at home Morbid obesity with BMI 44.9 with possible underlying obesity hypoventilation Acute on chronic CHF with systolic dysfunction as well as valvular heart disease History of right hemidiaphragmatic plication for unilateral paralysis History of TIA Nephrolithiasis Osteoarthritis Hypothyroidism with low free T4 level and elevated TSH. Uncontrolled History of atrial fibrillation. Paroxysmal. Currently in sinus rhythm on Rythmol GERD Gout Plan: Patient will be continued on mechanical ventilation. Pulmonary and cardiology is following. Current with IV steroids, antibiotics, breathing treatments and IV Lasix 40 mg daily. Continue with GI DVT prophylaxis and follow up closely. Continue with home medications and further recommendations based on the clinical course. Prognosis is guarded with multiple medical problems and comorbid conditions. Time with Patient: Greater than 30
[2018-05-12 23:48] LABS: Glucose,Whole Blood 137 mg/dL (75-99)
[2018-05-13] MEDS: HEPARIN SODIUM,PORCINE 5,000 UNIT/ML 1 ML VIAL SQ SCH ×3 (00:05→17:42)
[2018-05-13] MEDS: INSULIN ASPART 100 UNIT/ML 1 ML 10 ML VIAL SQ SCH ×4 (00:05→20:22)
[2018-05-13] MEDS: methylPREDNISolone SOD SUCCI 125 MG/2 ML VIAL IV SCH ×4 (00:05→17:47)
[2018-05-13] MEDS: PROPOFOL 1,000 MG in EMPTY BAG 1 BAG IV SCH ×4 (01:35→21:53)
[2018-05-13] MEDS: IPRATROPIUM-ALBUTEROL 3 ML NEB INHALATION SCH ×6 (03:08→22:59)
[2018-05-13] MEDS: LORazepam 2 MG/ML INJ IV PRN (03:42)
[2018-05-13] MEDS: PIPERACILLIN-TAZOBACTAM 3.375 GM in DEXTROSE/WATER 1 50ML.BAG IVPB SCH ×3 (04:05→20:55)
[2018-05-13 04:27] LABS: ABG Base Excess 4.5 mmol/L; ABG HCO3 30 mmol/L (21-25); ABG Oxygen Saturation 96.6 % (94-97); ABG PCO2 49 mmHg (35-45); ABG PH 7.39 (7.35-7.45); ABG PO2 81 mmHg (83-108); ABG TCO2 31 mmol/L (19-24)
[2018-05-13 05:43] LABS: Glucose,Whole Blood 174 mg/dL (75-99)
[2018-05-13 05:44] LABS: Basophils % (A) 0 %; Eosinophils % (A) 0 %; HCT 38.6 % (34.0-46.0); HGB 11.9 gm/dL (11.4-16.0); Hypochromasia Slight; Lymphocytes # (A) 0.6 k/uL (1.0-4.8); Lymphocytes % (A) 4 %; MCH 27.8 pg (25.0-35.0); MCHC 30.9 g/dL (31.0-37.0); MCV 89.9 fL (80.0-100.0); Mean Platelet Volume 6.9; Monocytes # (A) 0.7 k/uL (0-1.0); Monocytes % (A) 4 %; Neutrophils # (A) 16.1 k/uL (1.3-7.7); Neutrophils % (A) 92 %; Platelet Count 209 k/uL (150-450); RDW 14.2 % (11.5-15.5); WBC 17.5 k/uL (3.8-10.6)
[2018-05-13 06:00] LABS: Anion Gap 7 mmol/L; Blood Urea Nitrogen 32 mg/dL (7-17); Calcium 8.7 mg/dL (8.4-10.2); Carbon Dioxide 27 mmol/L (22-30); Chloride 108 mmol/L (98-107); Glucose 173 mg/dL (74-99); Magnesium 2.2 mg/dL (1.6-2.3); Phosphorus 3.4 mg/dL (2.5-4.5); Potassium 4.7 mmol/L (3.5-5.1); Sodium 142 mmol/L (137-145)
[2018-05-13] MEDS: LEVOTHYROXINE 50 MCG TAB PO SCH (06:23)
--- NOTE | 2018-05-13 07:43 | P.PN ---
Subjective Progress Note Date: 05/13/18 This is a 77-year-old female patient who was admitted to the intensive care unit with cardiopulmonary arrest. Currently the patient is intubated and she is on ventilator. The patient was in her usual state of health until yesterday when she was at the [facility] and she started experiencing shortness of breath. She didn't go home and she did to back-to- back breathing treatment without any improvement in her symptoms. At that point the patient called her daughter came in and found her mother in respiratory distress where at that point EMS was called and the patient was hypoxic where she was brought to the emergency room. In the ER the patient did have cardiopulmonary arrest with PDA and she received 2 epinephrine and she was intubated at that point and she was brought to the intensive care unit. Currently the patient is intubated unit nit. Currently the patient is intubated but remain hemodynamically stable and she is not on any vasopressors. The patient does have history of obstructive sleep apnea and she uses CPAP machine. She is obese. The side that interim of cardiac history she does have history of mild nonobstructive coronary artery disease based on heart catheterization was performed in 2013. The patient underwent an echocardiogram bedside today and that revealed normal left ventricle systolic function with hypertensive heart disease and evidence off severe mitral stenosis with a mean gradient across the mitral valve 20 mmHg as well as moderate to severe aortic stenosis with a mean gradient across aortic valve of 30 mmHg. The chest x-ray showed what it seems to be possible bilateral pneumonia with possible component of congestive heart failure. The BNP came in to be around 1000. The EKG showed sinus rhythm with sinus tachycardia and nonspecific changes in the lateral leads. The first set of troponin came in to be normal and we'll obtain 2 more sets of troponin. The lactic acid is elevated. On follow-up with the patient today, she still intubated and she is on ventilator. Hemodynamically she is a stable. She still on Lasix IV at 40 mg daily. The chest x-ray from today showed evidence off pneumonia as well as CHF. Objective - Vital Signs Vital signs: Vital Signs Temp 97.8 F 05/13/18 04:00 Pulse 86 05/13/18 07:32 Resp 22 05/13/18 07:22 BP 114/56 05/13/18 06:00 Pulse Ox 97 05/13/18 06:00 Intake & Output 05/12/18 05/13/18 05/13/18 18:59 06:59 18:59 Intake Total 4665.496 8248.105 40 Output Total 1969 848 30 Balance -939.711 283.105 10 Weight 115.1 kg 112.9 kg Intake: IV 210.0 455.0 40 Dextrose 5%-0.45% NaCl 1, 60 000 ml @ 20 mls/hr IV . Q24H [facility] Rx#:[id number] Magnesium Sulfate-D5w Pmx 100 1 gm In Dextrose/Water 1 100ml.bag @ 100 mls/hr IVPB Q1H [facility] Rx#: [id number] Piperacillin-Tazobactam 3 50.0 75.0 .375 gm In Dextrose/Water 1 50ml.bag @ 12.5 mls/hr IVPB Q8H [facility] Rx#: [id number] Sodium Chloride 0.9% 1, 380 40 000 ml @ 40 mls/hr IV . Q24H [facility] Rx#:[id number] Intake, IV Titration 624.289 396.105 Amount Levofloxacin 750Mg-D5w 150 Pmx 750 mg In Dextrose/ Water 1 150ml.bag @ 100 mls/hr IVPB Q24H [facility] Rx#: [id number] Propofol 1,000 mg In 154.289 356.105 Empty Bag 1 bag @ Titrate IV .Q0M [facility] Rx#: [id number] Sodium Chloride 0.9% 1, 320 40 000 ml @ 40 mls/hr IV . Q24H [facility] Rx#:[id number] Tube Feeding 105 280 Other 90 Output: Urine 1969 848 30 Other: Voiding Method Indwelling Catheter Indwelling Catheter ABP, PAP, CO, CI - Last Documented Arterial Blood Pressure - Constitutional General appearance: Present: no acute distress - Respiratory Respiratory: bilateral: diminished - Cardiovascular Rhythm: regular Heart sounds: normal: S1, S2 Abnormal Heart Sounds: Present: systolic murmur - Labs CBC & Chem 7: 05/13/18 05:25 05/13/18 05:25 Labs: Abnormal Lab Results - Last 24 Hours (Table) 05/12/18 05/12/18 05/12/18 Range/Units 05:00 07:58 07:58 WBC (3.8-10.6) k/uL MCHC (31.0-37.0) g/dL Neutrophils # (1.3-7.7) k/uL Lymphocytes # (1.0-4.8) k/uL INR 1.2 H (<1.2) ABG pCO2 (35-45) mmHg ABG pO2 (83-108) mmHg ABG HCO3 (21-25) mmol/L ABG Total CO2 (19-24) mmol/L Chloride (98-107) mmol/L BUN (7-17) mg/dL Glucose (74-99) mg/dL POC Glucose (mg/dL) (75-99) mg/dL Plasma Lactic Acid Selwyn 2.4 H* (0.7-2.0) mmol/L Troponin I 0.043 H* (0.000-0.034) ng/mL 05/12/18 05/12/18 05/12/18 Range/Units 12:22 17:14 23:47 WBC (3.8-10.6) k/uL MCHC (31.0-37.0) g/dL Neutrophils # (1.3-7.7) k/uL Lymphocytes # (1.0-4.8) k/uL INR (<1.2) ABG pCO2 (35-45) mmHg ABG pO2 (83-108) mmHg ABG HCO3 (21-25) mmol/L ABG Total CO2 (19-24) mmol/L Chloride (98-107) mmol/L BUN (7-17) mg/dL Glucose (74-99) mg/dL POC Glucose (mg/dL) 153 H 160 H 137 H (75-99) mg/dL Plasma Lactic Acid Selwyn (0.7-2.0) mmol/L Troponin I (0.000-0.034) ng/mL 05/13/18 05/13/18 05/13/18 Range/Units 04:25 05:25 05:25 WBC 17.5 H (3.8-10.6) k/uL MCHC 30.9 L (31.0-37.0) g/dL Neutrophils # 16.1 H (1.3-7.7) k/uL Lymphocytes # 0.6 L (1.0-4.8) k/uL INR (<1.2) ABG pCO2 49 H (35-45) mmHg ABG pO2 81 L (83-108) mmHg ABG HCO3 30 H (21-25) mmol/L ABG Total CO2 31 H (19-24) mmol/L Chloride 108 H (98-107) mmol/L BUN 32 H (7-17) mg/dL Glucose 173 H (74-99) mg/dL POC Glucose (mg/dL) (75-99) mg/dL Plasma Lactic Acid Selwyn (0.7-2.0) mmol/L Troponin I (0.000-0.034) ng/mL 05/13/18 Range/Units 05:41 WBC (3.8-10.6) k/uL MCHC (31.0-37.0) g/dL Neutrophils # (1.3-7.7) k/uL Lymphocytes # (1.0-4.8) k/uL INR (<1.2) ABG pCO2 (35-45) mmHg ABG pO2 (83-108) mmHg ABG HCO3 (21-25) mmol/L ABG Total CO2 (19-24) mmol/L Chloride (98-107) mmol/L BUN (7-17) mg/dL Glucose (74-99) mg/dL POC Glucose (mg/dL) 174 H (75-99) mg/dL Plasma Lactic Acid Selwyn (0.7-2.0) mmol/L Troponin I (0.000-0.034) ng/mL Microbiology - Last 24 Hours (Table) 05/11/18 15:56 Blood Culture - Preliminary Blood No Growth after 24 hours 05/11/18 21:09 Gram Stain - Preliminary Sputum Sputum Culture - Preliminary Assessment and Plan Assessment: Assessment #1 acute respiratory failure #2 cardiopulmonary arrest #3 possible bilateral pneumonia #4 congestive heart failure secondary to systolic dysfunction and valvular heart disease #5 valvular heart disease with severe mitral stenosis and moderate to severe aortic stenosis #6 obstructive sleep apnea #7 morbid obesity Plan #1 currently the patient is intubated and she is on ventilator. Telecom Engineer on the case #2 she is getting treated for bilateral pneumonia #3 continue the current dose of IV Lasix which is 40 mg daily #4 the echocardiogram was reviewed and described above #5 follow-up with the patient.
[2018-05-13] MEDS: PANTOPRAZOLE 40 MG/10 ML VIAL IVP SCH (08:29)
[2018-05-13] MEDS: CHLORHEXIDINE GLUCONATE 15 ML CUP MUCOUS MEM SCH ×2 (08:29→21:30)
[2018-05-13] MEDS: FUROSEMIDE 10 MG/ML 4 ML VIAL IV SCH ×2 (08:29→17:42)
[2018-05-13] MEDS: PROPAFENONE 150 MG TAB PO SCH ×2 (08:29→21:49)
--- NOTE | 2018-05-13 09:44 | XR ---
EXAMINATION TYPE: XR chest 1V portable DATE OF EXAM: 05/13/2018 COMPARISON: 05/12/2018 HISTORY: SOB, Follow Up FINDINGS: Indwelling tubes and catheters are unchanged. Persistent scattered infiltrates throughout both lung hillman greatest within the right upper lobe and right lung base. Pulmonary venous congestion with cardiomegaly and pleural effusions. Pleural effusion unchanged. IMPRESSION: 1. Stable portable chest. Clinical correlation and follow up until resolution is recommended.
[2018-05-13] MEDS: HYDROmorphone 0.5 MG/0.5 ML SYRINGE IVP PRN ×2 (10:45→17:41)
[2018-05-13] MEDS ORDERED: HYDROmorphone 0.5 MG/0.5 ML SYRINGE IM PRN (10:56)
[2018-05-13 12:03] LABS: Glucose,Whole Blood 140 mg/dL (75-99)
[2018-05-13] MEDS: SODIUM CHLORIDE 0.9% 1,000 ML IV SCH (12:32)
--- NOTE | 2018-05-13 12:38 | P.PN ---
Subjective Progress Note Date: 05/13/18 A 77-year-old morbidly obese female patient with known history of obstructive sleep apnea maintained on BiPAP therapy on outpatient basis and addition to chronic bronchial asthma and significant limitation in exercise capacity secondary to her age body habitus and comorbidities, presented to the hospital because of an acute respiratory failure. I interviewed the daughter. Apparently the patient was at [employer] studies and she was getting progressively more short of breath. After arriving home she did [id number] breathing treatments without much relief. Ultimately she called her daughter who arrived to the scene and she saw that her mother was having more chest congestion, respirator distress, wheezing, and she was headed into respiratory failure. EMS was called to the scene. Upon arrival of EMS, the patient's pulse ox was in the low 70s pH was placed on on the percent nonrebreather facemask as she remained hypoxic and following that the patient was placed on BiPAP. The patient was moved to the emergency department. The patient was seen immediately after she arrived the ED. She was hypoxic, and she was cold and clammy and salmon color and cyanotic. As we were getting ready to intubate the patient, the patient lost pulse briefly and she became bradycardic. She went to the [facility]. She received a dose of epinephrine. She was started on CPR. Within 1 minute she recovered her pulse and the blood pressure. She was intubated and placed on a mechanical ventilator. She currently has a 7.[address] She is an assist-control mode of ventilation at the rate of 26, tidal volume of 400, FiO2 of 100% and a PEEP of 5. Immediately postintubation the blood pressure improved and she had a systolic above 200. She was started on propofol for sedation and her current systolic blood pressure in the 150s. A Poe catheter was inserted. The peak pressures in the 38-40 range. Static pressures around 32. The patient has significant bronchospasm and wheezing. A chest x-ray was done post intubation and post line placement and the chest x- ray showed no evidence of any pneumothorax. Bilateral air space disease was present in the perihilar regions in the lower lobes bilaterally right more than left. ET tube and NG tube were in good location. The patient also had a left subclavian triple-lumen catheter that was inserted without any complications. She was started on IV Zosyn knowing that the patient also briefly aspirated and vomited at the time of the intubation. Labs showed a white cell count of 22. The postintubation blood gas showed a pH of 7.21 with a pCO2 of 63 and pO2 of 88 and this blood gases on 100% FiO2. Initial lactic acid level was at 5.9 On today's evaluation of 05/12/2018 I'm seeing this patient for a follow-up. The patient remains intubated on a mechanical ventilator. Sedated with Diprivan at 30 mics per KG per minute. She is well sedated and she is synchronous with the mechanical ventilator. She is an assist-control mode of ventilation at the rate of 26 with a tidal volume of 400 and FiO2 of 60% with a PEEP of 5. The patient's chest x-ray from today is showing some mild improvement examination of the right midlung field. Otherwise the rest of the signs are all stable. ET tube is in a good location. The patient has consolidation of the right lung involving the right apex and the right lung base. There is also some perihilar pulmonary infiltrates bilaterally addition to some cardiomegaly. There is chronic elevation of the right hemidiaphragm. The blood gases from today showed a pH of 7.33 with a pCO2 of 47 and pO2 of 77 and it wasn't an FiO2 of 60%. The lactic acid level is down to 1.9 from 2.9 in addition. The patient was given briefly a sedation holiday and she was able to follow commands, simple commands and following that the patient was placed back on sedation. She did not require any pressors and the patient is maintaining home blood pressure. She was seen by cardiology today. Echocardiogram was done. The echo showed normal LV function with hypertensive heart disease and evidence of severe mitral stenosis with a mean gradient across the mitral valve of 20 mmHg as well as moderate to severe aortic stenosis with a mean gradient across the valve of 30 mmHg. The patient's cardiac rhythm is still sinus. She remains on broad-spectrum antibiotic coverage with a combination of Zosyn and Levaquin. The sputum cultures still negative for now. Blood cultures have been sent and the results are still negative for now. White cell count is elevated at 22.3. The patient was started on Lasix by cardiology 40 mg IV every 24 hours. She is also normal state rate of 40 mL an hour for now. On today's evaluation of 05/13/2018, the patient remains intubated on a mechanical ventilator. She is lightly sedated and the patient can easily aroused from propofol infusion. She remains on a mechanical ventilator the same vent setting. The blood gas from today, while on the 50% FiO2 showed a pH of 7.39 with a pCO2 of 40 and a pO2 of 81. White cell count is down to 17. The chest x-ray from today is showing persistent bilateral pulmonary infiltrates most on the right upper lobe and the right lower lobe. There is also small bilateral pleural effusion and cardiomegaly. ET tube remains in a good location. Cultures of been all negative thus far. The patient is afebrile and the patient is hemodynamically stable. Also, echocardiogram showed moderate to severe mitral stenosis and aortic valve stenosis and the patient was started on diuresis yesterday. I think we need to diurese this patient more aggressively over the next 24 hours. She'll feeds are running and the patient is tolerating her tube feeds without any major difficulties. Patient is producing adequate amount of urine output. Cardiac rhythm remains sinus. No other significant events over the past 24 hours. Objective - Vital Signs Vital signs: Vital Signs Temp 97.6 F 05/13/18 12:00 Pulse 97 05/13/18 12:00 Resp 22 05/13/18 12:00 BP 107/47 05/13/18 12:00 Pulse Ox 100 05/13/18 12:00 Intake & Output 05/12/18 05/13/18 05/13/18 18:59 06:59 18:59 Intake Total 5298.830 8368.105 501.748 Output Total 2642 787 4067 Balance -939.711 283.105 -758.252 Weight 115.1 kg 112.9 kg Intake: IV 210.0 455.0 195 Dextrose 5%-0.45% NaCl 1, 60 000 ml @ 20 mls/hr IV . Q24H NIRANJAN Rx#:[id number] Magnesium Sulfate-D5w Pmx 100 1 gm In Dextrose/Water 1 100ml.bag @ 100 mls/hr IVPB Q1H NIRAN[facility] Rx#: [id number] Piperacillin-Tazobactam 3 50.0 75.0 25 .375 gm In Dextrose/Water 1 50ml.bag @ 12.5 mls/hr IVPB Q8H [facility] Rx#: [id number] Sodium Chloride 0.9% 1, 380 170 000 ml @ 40 mls/hr IV . Q24H NIRANJAN Rx#:[id number] Intake, IV Titration 624.289 396.105 71.748 Amount Levofloxacin 750Mg-D5w 150 Pmx 750 mg In Dextrose/ Water 1 150ml.bag @ 100 mls/hr IVPB Q24H NIRAN[facility] Rx#: [id number] Propofol 1,000 mg In 154.289 356.105 71.748 Empty Bag 1 bag @ Titrate IV .Q0M NIRANJAN Rx#: [id number] Sodium Chloride 0.9% 1, 320 40 000 ml @ 40 mls/hr IV . Q24H NIRANJAN Rx#:[id number] Tube Feeding 105 280 175 Other 90 60 Output: Urine 9922 302 4170 Other: Voiding Method Indwelling Catheter Indwelling Catheter Indwelling Catheter ABP, PAP, CO, CI - Last Documented Arterial Blood Pressure 24/24 - Exam Patient currently intubated on mechanical ventilator, comfortable on propofol. Orogastric and orotracheal tube are both in place. Head exam was generally normal. There was no scleral icterus or corneal arcus. Mucous membranes were moist. Neck is short and supple and there is mild JVDs no goiter or neck masses appreciated. Orogastric and orotracheal tube are both in place and the patient has a left subclavian triple-lumen catheter in place. Lungs sounds are diminished bilaterally along with scattered rhonchi and scattered wheezes heard throughout the lung hillman bilaterally and crackles in the lung bases Heart sounds are irregular positive S1-S2 and there is no significant murmurs appreciated.Cardiac exam revealed the PMI to be normally situated and sized. The rhythm was regular and no extrasystoles were noted during several minutes of auscultation. The first and second heart sounds were normal and physiologic splitting of the second heart sound was noted. There were no murmurs, rubs, clicks, or gallops. Abdominal exam revealed normal bowel sounds. The abdomen was soft, non-tender, and without masses, organomegaly, or appreciable enlargement of the abdominal aorta. Overall the patient is obese and the patient's organs cannot be accurately palpated. No direct tenderness or rebound tensile guarding Examination of the extremities revealed easily palpable radial, femoral and pedal pulses. There was no cyanosis, clubbing or edema. Examination of the skin revealed no evidence of significant rashes, suspicious appearing nevi or other concerning lesions. Neurologically the patient is sedated and calm and comfortable most for extremities to painful stimulation - Labs CBC & Chem 7: 05/13/18 05:25 05/13/18 05:25 Labs: Abnormal Lab Results - Last 24 Hours (Table) 05/12/18 05/12/18 05/13/18 Range/Units 17:14 23:47 04:25 WBC (3.8-10.6) k/uL MCHC (31.0-37.0) g/dL Neutrophils # (1.3-7.7) k/uL Lymphocytes # (1.0-4.8) k/uL ABG pCO2 49 H (35-45) mmHg ABG pO2 81 L (83-108) mmHg ABG HCO3 30 H (21-25) mmol/L ABG Total CO2 31 H (19-24) mmol/L Chloride (98-107) mmol/L BUN (7-17) mg/dL Glucose (74-99) mg/dL POC Glucose (mg/dL) 160 H 137 H (75-99) mg/dL 05/13/18 05/13/18 05/13/18 Range/Units 05:25 05:25 05:41 WBC 17.5 H (3.8-10.6) k/uL MCHC 30.9 L (31.0-37.0) g/dL Neutrophils # 16.1 H (1.3-7.7) k/uL Lymphocytes # 0.6 L (1.0-4.8) k/uL ABG pCO2 (35-45) mmHg ABG pO2 (83-108) mmHg ABG HCO3 (21-25) mmol/L ABG Total CO2 (19-24) mmol/L Chloride 108 H (98-107) mmol/L BUN 32 H (7-17) mg/dL Glucose 173 H (74-99) mg/dL POC Glucose (mg/dL) 174 H (75-99) mg/dL 05/13/18 Range/Units 12:01 WBC (3.8-10.6) k/uL MCHC (31.0-37.0) g/dL Neutrophils # (1.3-7.7) k/uL Lymphocytes # (1.0-4.8) k/uL ABG pCO2 (35-45) mmHg ABG pO2 (83-108) mmHg ABG HCO3 (21-25) mmol/L ABG Total CO2 (19-24) mmol/L Chloride (98-107) mmol/L BUN (7-17) mg/dL Glucose (74-99) mg/dL POC Glucose (mg/dL) 140 H (75-99) mg/dL Microbiology - Last 24 Hours (Table) 05/11/18 15:56 Blood Culture - Preliminary Blood No Growth after 24 hours Assessment and Plan Plan: Assessment 1 acute hypoxic respiratory failure with bilateral lower lobe pneumonia and possibly component of CHF. The patient presented emergency department with acute respiratory arrest, intubated and placed on a mechanical ventilator On 05/12/2018 the patient remains intubated on a mechanical ventilator. There is improvement in oxygenation and FiO2 has been drop down to 60%. There is also further weaning the FiO2 down knowing that the patient's pulse ox and the pO2 is above 100. Meanwhile, the sputum cultures still pending. The patient is on a broad-spectrum antibiotic coverage with a combination of Zosyn and Levaquin. The patient is still sedated on a mechanical ventilator, intubated. On 05/13/2018, the patient remains on a mechanical ventilator. The patient is oxygenating and ventilating well. She is on the same antibiotic coverage. There is persistent but the pulmonary consolidation and infiltrates most on the right. The patient is on Zosyn and Levaquin the patient will be started on diuretics should there be a component of interstitial/pulmonary edema in association with his underlying pneumonia. Cultures of been all negative thus far. The patient remains hemodynamically stable. 2 bilateral lower lobe pneumonia with airspace disease and consolidations. Rule out aspiration pneumonia. Rule out with acquired pneumonia. Suspect bacterial pneumonia. 3 acute cardiac pulmonary arrest with brief loss in progress where the patient received CPR and received a dose of epinephrine with return of spontaneous circulation. Currently on no pressors. No signs of any hypoxic encephalopathy and the patient was given a brief sedation holiday and she was able to follow simple commands without any major difficulties 4 lactic acidosis secondary to above, improving 5 leukocytosis secondary to above 6 morbid obesity with a BMI of 43.4 7 obstructive sleep apnea 8 severe persistent bronchial asthma 9 history of right hemidiaphragmatic plication for unilateral paralysis 10 moderate to severe severe aortic stenosis and mitral stenosis, with a preserved LV function as evident on the echocardiogram 11 history of TIA 12 nephrolithiasis 13 gouty arthritis 14 hypothyroidism 13 hypertension 16 hyperlipidemia 17 history of atrial fibrillation on Rythmol and her current rhythm is sinus 18 acid reflux 19 gout 20 degenerative arthritis Plan Continue the vent support. Continue Zosyn and Levaquin. Increase the Lasix to 40 minute grams IV push every 8 hours. Cut down the IV fluids to KVO. Continue enteral feeding for nutritional support. Continue bronchodilators. Continue systemic steroids. A sedation holidays. Not ready for extubation yet. The echocardiogram was noted. Continue to follow make further recommendations based on her overall progress. Critically care evaluation was done and more than 30 minutes. Time with Patient: Greater than 30
--- NOTE | 2018-05-13 17:18 | P.PN ---
Subjective Progress Note Date: 05/13/18 Prognosis note being dictated for Dr. Randall Interval history:Patient is on 73-year-old female with a known history of obstructive sleep apnea on biPAP, Hypothyroidism, valvular heart disease with aortic stenosis and congestive heart failure and multiple other medical problems including morbid obesity presented to hospital with worsening shortness of breath. Patient was at [facility] studies where she had progressive shortness of breath. Patient's pulse ox was low 70s upon EMS arrival. Patient was placed on 100% nonrebreather but the patient remained hypoxic. Patient was placed on BiPAP. And was transferred to ER. Patient was given breathing treatments while in the ER without much relief. Patient was subsequently intubated due to acute hypoxic respiratory failure. Currently patient is intubated and is in the medical intensive care unit. Chest x-ray showed no evidence of pneumothorax. Bilateral air space disease was present in the perihilar region in the lower lobes bilaterally right more than left. WC count was 22 on admission. Lactic acid 5.9 on admission ABG showed pH of 7.21 pCO2 63 and PaO2 88 with 100% FiO2. Patient is currently on Solu-Medrol 60 g every 6 hourly along with duo nebs and antibiotics in the form of levofloxacin and Zosyn. Cardiology and pulmonary is following. Chest x-ray this morning showed mildly improved aeration of the right lung otherwise stable 2-D echocardiogram showed ejection fraction 50-55% with severe severe mitral stenosis and severe aortic stenosis. Review of Systems Patient is currently intubated and sedated. Complete review of systems could not be apparent from the patient 05/13/2018 remains vent dependent, FiO2 50%/+5 of PEEP. Maintained on DIprovan. Telemetry sinus rhythm. Diuresing well on Lasix IV push with 24- hour I&O reflecting a negative fluid balance. Chest x-ray stable, persistent scattered infiltrates to bilateral lungs greatest in the right lung, small bilateral pleural effusions. Maintained on Zosyn and Levaquin .T-max 99.1, leukocytosis improving, sputum culture pending, preliminary blood cultures negative. Tolerating tube feeds with minimal to no residuals. IV fluids PIVL' D. Objective - Vital Signs Vital signs: Vital Signs Temp 97.6 F 05/13/18 12:00 Pulse 105 H 05/13/18 15:23 Resp 23 07/13/18 15:00 BP 144/72 05/13/18 15:00 Pulse Ox 99 05/13/18 15:00 Intake & Output 05/12/18 05/13/18 05/13/18 18:59 06:59 18:59 Intake Total 2232.182 2356.105 587.500 Output Total 7009 517 1481 Balance -939.711 283.105 -732.500 Weight 115.1 kg 112.9 kg Intake: IV 210.0 455.0 217.5 Dextrose 5%-0.45% NaCl 1, 60 000 ml @ 20 mls/hr IV . Q24H NIRANJAN Rx#:[id number] Magnesium Sulfate-D5w Pmx 100 1 gm In Dextrose/Water 1 100ml.bag @ 100 mls/hr IVPB Q1H NIRANJAN Rx#: [id number] Piperacillin-Tazobactam 3 50.0 75.0 37.5 .375 gm In Dextrose/Water 1 50ml.bag @ 12.5 mls/hr IVPB Q8H NIRANJAN Rx#: [id number] Sodium Chloride 0.9% 1, 380 180 000 ml @ 10 mls/hr IV . Q24H NIRANJAN Rx#:[id number] Intake, IV Titration 624.289 396.105 100.000 Amount Levofloxacin 750Mg-D5w 150 Pmx 750 mg In Dextrose/ Water 1 150ml.bag @ 100 mls/hr IVPB Q24H NIRANJAN Rx#: [id number] Propofol 1,000 mg In 154.289 356.105 100.000 Empty Bag 1 bag @ Titrate IV .Q0M NIRANJAN Rx#: [id number] Sodium Chloride 0.9% 1, 320 40 000 ml @ 10 mls/hr IV . Q24H NIRANJAN Rx#:[id number] Tube Feeding 105 280 210 Other 90 60 Output: Urine 3707 474 7161 Other: Voiding Method Indwelling Catheter Indwelling Catheter Indwelling Catheter ABP, PAP, CO, CI - Last Documented Arterial Blood Pressure 24 - Exam Patient is lying in the bed comfortably, no acute distress, sedated and intubated.. HEENT: Normocephalic. Neck is supple. Pupils reactive. Nostrils clear. Oral cavity is moist. Ears reveal no drainage. Neck reveals no JVD, carotid bruits, or thyromegaly. CHEST EXAMINATION: Trachea is central. Symmetrical expansion. Endotracheal tube in place. Fine bibasilar crackles with Scattered rhonchi and expiratory wheezes, Prolonged expiration. CARDIAC: Normal S1, S2 with no gallops. Systolic murmur ABDOMEN: Soft. Bowel sounds normal. No organomegaly. No abdominal bruits. Extremities: reveal no edema. No clubbing or cyanosis Neurologically patient is currently sedated and intubated. No focal deficits noted Skin: No rash or skin lesions. Musculoskeletal: No joint swelling or deformity. Microbiology 05/11/18 15:56 Blood Blood Culture - Preliminary No Growth after 24 hours 05/11/18 21:09 Sputum Gram Stain - Preliminary 05/11/18 21:09 Sputum Sputum Culture - Preliminary - Labs CBC & Chem 7: 05/13/18 05:25 05/13/18 05:25 Labs: Abnormal Lab Results - Last 24 Hours (Table) 05/12/18 05/12/18 05/13/18 Range/Units 17:14 23:47 04:25 WBC (3.8-10.6) k/uL MCHC (31.0-37.0) g/dL Neutrophils # (1.3-7.7) k/uL Lymphocytes # (1.0-4.8) k/uL ABG pCO2 49 H (35-45) mmHg ABG pO2 81 L (83-108) mmHg ABG HCO3 30 H (21-25) mmol/L ABG Total CO2 31 H (19-24) mmol/L Chloride (98-107) mmol/L BUN (7-17) mg/dL Glucose (74-99) mg/dL POC Glucose (mg/dL) 160 H 137 H (75-99) mg/dL 05/13/18 05/13/18 05/13/18 Range/Units 05:25 05:25 05:41 WBC 17.5 H (3.8-10.6) k/uL MCHC 30.9 L (31.0-37.0) g/dL Neutrophils # 16.1 H (1.3-7.7) k/uL Lymphocytes # 0.6 L (1.0-4.8) k/uL ABG pCO2 (35-45) mmHg ABG pO2 (83-108) mmHg ABG HCO3 (21-25) mmol/L ABG Total CO2 (19-24) mmol/L Chloride 108 H (98-107) mmol/L BUN 32 H (7-17) mg/dL Glucose 173 H (74-99) mg/dL POC Glucose (mg/dL) 174 H (75-99) mg/dL 05/13/18 Range/Units 12:01 WBC (3.8-10.6) k/uL MCHC (31.0-37.0) g/dL Neutrophils # (1.3-7.7) k/uL Lymphocytes # (1.0-4.8) k/uL ABG pCO2 (35-45) mmHg ABG pO2 (83-108) mmHg ABG HCO3 (21-25) mmol/L ABG Total CO2 (19-24) mmol/L Chloride (98-107) mmol/L BUN (7-17) mg/dL Glucose (74-99) mg/dL POC Glucose (mg/dL) 140 H (75-99) mg/dL Microbiology - Last 24 Hours (Table) 05/11/18 15:56 Blood Culture - Preliminary Blood No Growth after 24 hours Assessment and Plan Assessment: Acute hypoxic respiratory failure. Multifactorial secondary to pneumonia and CHF and COPD. Currently patient is intubated. Bilateral lower lobe pneumonia. Right greater than left Acute cardio pulmonary arrest with brief loss of pulse status post CPR and a dose of epinephrine with return of spontaneous circulation. Lactic acidosis 5.9 on admission improving Sepsis secondary to pneumonia Obstructive sleep apnea on BiPAP at home Morbid obesity with BMI 44.9 with possible underlying obesity hypoventilation Acute on chronic CHF with systolic dysfunction as well as valvular heart disease History of right hemidiaphragmatic plication for unilateral paralysis History of TIA Nephrolithiasis Osteoarthritis Hypothyroidism with low free T4 level and elevated TSH. Uncontrolled History of atrial fibrillation. Paroxysmal. Currently in sinus rhythm on Rythmol GERD Gout Plan: Continue on current medication regime ,monitoring and symptomatic treatment. Maintain nebulized bronchodilators, systemic steroids, antibiotics of Zosyn and Levaquin. Follow cultures closely. Prognosis guarded given multiple complex medical issues. The impression and plan of care has been dictated as directed. : I performed a history and examination of this patient, discussed the same with the dictator. I agree with the dictator's note ,documented as a scribe. Any additional findings or plans will be noted.
[2018-05-13] MEDS: LEVOFLOXACIN 750MG-D5W PMX 750 MG in DEXTROSE/WATER 1 150ML.BAG IVPB SCH (17:47)
[2018-05-13 20:21] LABS: Glucose,Whole Blood 139 mg/dL (75-99)
[2018-05-13] MEDS ORDERED: DILTIAZEM DRIP BOLUS FROM BAG 1 MG SOLN IV ONE (22:06)
[2018-05-13] MEDS ORDERED: DILTIAZEM 50 MG in SODIUM CHLORIDE 0.9% 40 ML IV SCH (22:15)
[2018-05-13 22:33] LABS: Anion Gap 8 mmol/L; Blood Urea Nitrogen 38 mg/dL (7-17); Calcium 8.8 mg/dL (8.4-10.2); Carbon Dioxide 33 mmol/L (22-30); Chloride 104 mmol/L (98-107); Glucose 187 mg/dL (74-99); Potassium 4.1 mmol/L (3.5-5.1); Sodium 145 mmol/L (137-145)
[2018-05-14 00:11] LABS: Glucose,Whole Blood 138 mg/dL (75-99)
[2018-05-14] MEDS: HEPARIN SODIUM,PORCINE 5,000 UNIT/ML 1 ML VIAL SQ SCH (00:30)
[2018-05-14] MEDS: INSULIN ASPART 100 UNIT/ML 1 ML 10 ML VIAL SQ SCH ×4 (00:30→18:25)
[2018-05-14] MEDS: methylPREDNISolone SOD SUCCI 125 MG/2 ML VIAL IV SCH ×4 (00:30→17:55)
[2018-05-14] MEDS: FUROSEMIDE 10 MG/ML 4 ML VIAL IV SCH (02:00)
[2018-05-14] MEDS: PROPOFOL 1,000 MG in EMPTY BAG 1 BAG IV SCH ×5 (02:25→20:00)
[2018-05-14] MEDS: IPRATROPIUM-ALBUTEROL 3 ML NEB INHALATION SCH ×6 (03:22→23:01)
[2018-05-14] MEDS: PIPERACILLIN-TAZOBACTAM 3.375 GM in DEXTROSE/WATER 1 50ML.BAG IVPB SCH ×3 (04:26→20:28)
[2018-05-14 05:18] LABS: ABG Base Excess 9.2 mmol/L; ABG HCO3 33 mmol/L (21-25); ABG Oxygen Saturation 96.9 % (94-97); ABG PCO2 47 mmHg (35-45); ABG PH 7.46 (7.35-7.45); ABG PO2 80 mmHg (83-108); ABG TCO2 35 mmol/L (19-24)
[2018-05-14 05:40] LABS: Basophils % (A) 0 %; Eosinophils % (A) 0 %; HCT 40.3 % (34.0-46.0); HGB 12.6 gm/dL (11.4-16.0); Hypochromasia Slight; Lymphocytes # (A) 0.7 k/uL (1.0-4.8); Lymphocytes % (A) 5 %; MCH 28.6 pg (25.0-35.0); MCHC 31.4 g/dL (31.0-37.0); MCV 91.2 fL (80.0-100.0); Mean Platelet Volume 6.8; Monocytes # (A) 0.6 k/uL (0-1.0); Monocytes % (A) 4 %; Neutrophils # (A) 13.6 k/uL (1.3-7.7); Neutrophils % (A) 90 %; Platelet Count 252 k/uL (150-450); RBC 4.42 m/uL (3.80-5.40); RDW 14.4 % (11.5-15.5)
[2018-05-14 05:59] LABS: Anion Gap 7 mmol/L; Blood Urea Nitrogen 45 mg/dL (7-17); Carbon Dioxide 32 mmol/L (22-30); Chloride 104 mmol/L (98-107); Glucose 163 mg/dL (74-99); Magnesium 2.1 mg/dL (1.6-2.3); Phosphorus 3.6 mg/dL (2.5-4.5); Sodium 143 mmol/L (137-145)
[2018-05-14 06:06] LABS: Glucose,Whole Blood 159 mg/dL (75-99)
--- NOTE | 2018-05-14 06:57 | XR ---
EXAMINATION TYPE: XR chest 1V portable DATE OF EXAM: 05/14/2018 HISTORY: Tube placement. REFERENCE: Previous study dated 05/13/2018. FINDINGS: The patient is ET tube and NG tube remain in place, unchanged in appearance. A left subclav aissatou catheter is in place. Its tip is in the superior vena cava. There are patchy, bilateral infiltrates. There is more confluent airspace disease in the right lung b ase. There are bilateral effusions. Heart size is obscured. The overall appearance may have improved slightly. IMPRESSION: SLIGHT IMPROVEMENT IN THE APPEARANCE OF THE CHEST.
--- NOTE | 2018-05-14 07:16 | P.PN ---
Subjective Progress Note Date: 05/14/18 Principal diagnosis: Acute hypoxic respiratory failure This is a 77-year-old female patient who was admitted to the intensive care unit with cardiopulmonary arrest. Currently the patient is intubated and she is on ventilator. The patient was in her usual state of health until yesterday when she was at the [facility] and she started experiencing shortness of breath. She didn't go home and she did to back-to- back breathing treatment without any improvement in her symptoms. At that point the patient called her daughter came in and found her mother in respiratory distress where at that point EMS was called and the patient was hypoxic where she was brought to the emergency room. In the ER the patient did have cardiopulmonary arrest with PDA and she received 2 epinephrine and she was intubated at that point and she was brought to the intensive care unit. Currently the patient is intubated unit nit. Currently the patient is intubated but remain hemodynamically stable and she is not on any vasopressors. The patient does have history of obstructive sleep apnea and she uses CPAP machine. She is obese. The side that interim of cardiac history she does have history of mild nonobstructive coronary artery disease based on heart catheterization was performed in 2013. The patient underwent an echocardiogram bedside today and that revealed normal left ventricle systolic function with hypertensive heart disease and evidence off severe mitral stenosis with a mean gradient across the mitral valve 20 mmHg as well as moderate to severe aortic stenosis with a mean gradient across aortic valve of 30 mmHg. The chest x-ray showed what it seems to be possible bilateral pneumonia with possible component of congestive heart failure. The BNP came in to be around 1000. The EKG showed sinus rhythm with sinus tachycardia and nonspecific changes in the lateral leads. The first set of troponin came in to be normal and we'll obtain 2 more sets of troponin. The lactic acid is elevated. I'll follow-up with the patient today, she continues to be in acute respiratory failure and intubated on ventilator. Yesterday she went into SVT and she received cardioversion which was synchronized cardioversion. Now she seems in sinus rhythm. I am getting a 12 please EKG to confirm the sinus rhythm. Beside that the blood pressure has been marginally low and I am going to decrease the dose of Lasix 40 mg IVP IV. Continue monitor the blood pressure very closely and possibly decrease the Lasix more if the pressure dropped down because the patient does have moderate to severe aortic stenosis and severe mitral stenosis and she cannot generate pressure. Also we will DC the Cardizem drip and start the patient on Cardizem by mouth. Objective - Vital Signs Vital signs: Vital Signs Temp 98.8 F 05/14/18 04:00 Pulse 86 05/14/18 06:00 Resp 23 05/14/18 06:00 BP 104/55 05/14/18 06:00 Pulse Ox 97 05/14/18 06:00 Intake & Output 05/13/18 05/14/18 05/14/18 18:59 06:59 18:59 Intake Total 1102.846 503.469 Output Total 1770 1465 Balance -667.154 -961.531 Weight 112 kg Intake: IV 455.0 145.0 Levofloxacin 750Mg-D5w 150 Pmx 750 mg In Dextrose/ Water 1 150ml.bag @ 100 mls/hr IVPB Q24H NIRANJAN Rx#: [id number] Piperacillin-Tazobactam 3 75.0 25.0 .375 gm In Dextrose/Water 1 50ml.bag @ 12.5 mls/hr IVPB Q8H NIRANJAN Rx#: [id number] Sodium Chloride 0.9% 1, 230 120 000 ml @ 10 mls/hr IV . Q24H NIRANJAN Rx#:[id number] Intake, IV Titration 172.846 218.469 Amount Propofol 1,000 mg In 172.846 218.469 Empty Bag 1 bag @ Titrate IV .Q0M NIRANJAN Rx#: [id number] Tube Feeding 385 140 Other 90 Output: Urine 1770 1465 Other: Voiding Method Indwelling Catheter Indwelling Catheter ABP, PAP, CO, CI - Last Documented Arterial Blood Pressure - Constitutional General appearance: Present: no acute distress - Respiratory Respiratory: bilateral: CTA - Cardiovascular Rhythm: regular Heart sounds: normal: S1, S2 Abnormal Heart Sounds: Present: systolic murmur - Labs CBC & Chem 7: 05/14/18 05:10 05/14/18 05:10 Labs: Abnormal Lab Results - Last 24 Hours (Table) 05/13/18 05/13/18 05/13/18 Range/Units 12:01 20:19 22:10 WBC (3.8-10.6) k/uL Neutrophils # (1.3-7.7) k/uL Lymphocytes # (1.0-4.8) k/uL ABG pH (7.35-7.45) ABG pCO2 (35-45) mmHg ABG pO2 (83-108) mmHg ABG HCO3 (21-25) mmol/L ABG Total CO2 (19-24) mmol/L Carbon Dioxide 33 H (22-30) mmol/L BUN 38 H (7-17) mg/dL Glucose 187 H (74-99) mg/dL POC Glucose (mg/dL) 140 H 139 H (75-99) mg/dL 05/14/18 05/14/18 05/14/18 Range/Units 00:10 04:48 05:10 WBC (3.8-10.6) k/uL Neutrophils # (1.3-7.7) k/uL Lymphocytes # (1.0-4.8) k/uL ABG pH 7.46 H (7.35-7.45) ABG pCO2 47 H (35-45) mmHg ABG pO2 80 L (83-108) mmHg ABG HCO3 33 H (21-25) mmol/L ABG Total CO2 35 H (19-24) mmol/L Carbon Dioxide 32 H (22-30) mmol/L BUN 45 H (7-17) mg/dL Glucose 163 H (74-99) mg/dL POC Glucose (mg/dL) 138 H (75-99) mg/dL 05/14/18 05/14/18 Range/Units 05:10 06:04 WBC 15.0 H (3.8-10.6) k/uL Neutrophils # 13.6 H (1.3-7.7) k/uL Lymphocytes # 0.7 L (1.0-4.8) k/uL ABG pH (7.35-7.45) ABG pCO2 (35-45) mmHg ABG pO2 (83-108) mmHg ABG HCO3 (21-25) mmol/L ABG Total CO2 (19-24) mmol/L Carbon Dioxide (22-30) mmol/L BUN (7-17) mg/dL Glucose (74-99) mg/dL POC Glucose (mg/dL) 159 H (75-99) mg/dL Microbiology - Last 24 Hours (Table) 05/11/18 15:56 Blood Culture - Preliminary Blood No Growth after 48 hours Assessment and Plan Assessment: Assessment #1 acute respiratory failure #2 cardiopulmonary arrest #3 possible bilateral pneumonia #4 congestive heart failure secondary to systolic dysfunction and valvular heart disease #5 valvular heart disease with severe mitral stenosis and moderate to severe aortic stenosis #6 obstructive sleep apnea #7 morbid obesity Plan #1 currently the patient is intubated and she is on ventilator. Brass Buffer on the case #2 she is getting treated for bilateral pneumonia #3 decrease the dose of Lasix IV #4 DC Cardizem drip and start the patient on Cardizem by mouth #5 monitor the blood pressure very closely #6 follow-up with the patient.
[2018-05-14] MEDS ORDERED: HEPARIN SODIUM,PORCINE 5,000 UNIT/ML 1 ML VIAL IV ONE (07:45)
[2018-05-14] MEDS: LEVOTHYROXINE 50 MCG TAB PO SCH (08:39)
[2018-05-14] MEDS: HEPARIN SOD,PORK IN 0.45% NACL 25,000 UNIT in 0.45% NACL 1 500ML.BAG IV SCH (08:41)
[2018-05-14] MEDS: CHLORHEXIDINE GLUCONATE 15 ML CUP MUCOUS MEM SCH ×2 (08:48→20:28)
[2018-05-14] MEDS: DILTIAZEM ORAL 30 MG TAB PO SCH ×3 (08:49→23:01)
[2018-05-14] MEDS: PANTOPRAZOLE 40 MG/10 ML VIAL IVP SCH (08:50)
[2018-05-14 08:52] LABS: HCT 38.6 % (34.0-46.0); HGB 12.2 gm/dL (11.4-16.0); Hypochromasia Slight; MCH 28.5 pg (25.0-35.0); MCHC 31.4 g/dL (31.0-37.0); MCV 90.5 fL (80.0-100.0); Mean Platelet Volume 6.7; Platelet Count 248 k/uL (150-450); RBC 4.27 m/uL (3.80-5.40); RDW 14.2 % (11.5-15.5); WBC 12.6 k/uL (3.8-10.6)
[2018-05-14 08:55] LABS: Anion Gap 6 mmol/L; Blood Urea Nitrogen 45 mg/dL (7-17); Calcium 8.8 mg/dL (8.4-10.2); Carbon Dioxide 34 mmol/L (22-30); Chloride 105 mmol/L (98-107); Glucose 157 mg/dL (74-99); Magnesium 2.2 mg/dL (1.6-2.3); Potassium 4.1 mmol/L (3.5-5.1); Sodium 145 mmol/L (137-145)
[2018-05-14] MEDS ORDERED: FUROSEMIDE 10 MG/ML 4 ML VIAL IV SCH (09:00)
[2018-05-14 09:03] LABS: INR 1.1 (<1.2); Partial Thromboplastin Time 22.5 sec (22.0-30.0); Prothrombin Time 10.8 sec (9.0-12.0)
[2018-05-14 09:05] LABS: Band Neutrophils % 1 %; Lymphocytes # (M) 0.76 k/uL (1.0-4.8); Monocytes # (M) 0.76 k/uL (0-1.0); Myelocytes # (M) 0.13 k/uL (0); Myelocytes % 1 %; Neutrophils % (M) 87 %; Nucleated Red Blood Cells 0 /100 WBC (0-0); Total Cells Counted 200; Toxic Granulation Present
[2018-05-14] MEDS: SODIUM CHLORIDE 0.9% 1,000 ML IV SCH (11:17)
[2018-05-14 12:10] LABS: Glucose,Whole Blood 158 mg/dL (75-99)
[2018-05-14 13:09] LABS: ABG Base Excess 12.3 mmol/L; ABG HCO3 36 mmol/L (21-25); ABG Oxygen Saturation 96.4 % (94-97); ABG PCO2 48 mmHg (35-45); ABG PH 7.48 (7.35-7.45); ABG PO2 78 mmHg (83-108); ABG TCO2 37 mmol/L (19-24)
--- NOTE | 2018-05-14 14:20 | P.PN ---
Subjective Progress Note Date: 05/14/18 A 77-year-old morbidly obese female patient with known history of obstructive sleep apnea maintained on BiPAP therapy on outpatient basis and addition to chronic bronchial asthma and significant limitation in exercise capacity secondary to her age body habitus and comorbidities, presented to the hospital because of an acute respiratory failure. I interviewed the daughter. Apparently the patient was at [employer] studies and she was getting progressively more short of breath. After arriving home she did [id number] breathing treatments without much relief. Ultimately she called her daughter who arrived to the scene and she saw that her mother was having more chest congestion, respirator distress, wheezing, and she was headed into respiratory failure. EMS was called to the scene. Upon arrival of EMS, the patient's pulse ox was in the low 70s pH was placed on on the percent nonrebreather facemask as she remained hypoxic and following that the patient was placed on BiPAP. The patient was moved to the emergency department. The patient was seen immediately after she arrived the ED. She was hypoxic, and she was cold and clammy and salmon color and cyanotic. As we were getting ready to intubate the patient, the patient lost pulse briefly and she became bradycardic. She went to the [facility]. She received a dose of epinephrine. She was started on CPR. Within 1 minute she recovered her pulse and the blood pressure. She was intubated and placed on a mechanical ventilator. She currently has a 7.[address] She is an assist-control mode of ventilation at the rate of 26, tidal volume of 400, FiO2 of 100% and a PEEP of 5. Immediately postintubation the blood pressure improved and she had a systolic above 200. She was started on propofol for sedation and her current systolic blood pressure in the 150s. A Poe catheter was inserted. The peak pressures in the 38-40 range. Static pressures around 32. The patient has significant bronchospasm and wheezing. A chest x-ray was done post intubation and post line placement and the chest x- ray showed no evidence of any pneumothorax. Bilateral air space disease was present in the perihilar regions in the lower lobes bilaterally right more than left. ET tube and NG tube were in good location. The patient also had a left subclavian triple-lumen catheter that was inserted without any complications. She was started on IV Zosyn knowing that the patient also briefly aspirated and vomited at the time of the intubation. Labs showed a white cell count of 22. The postintubation blood gas showed a pH of 7.21 with a pCO2 of 63 and pO2 of 88 and this blood gases on 100% FiO2. Initial lactic acid level was at 5.9 On today's evaluation of 05/12/2018 I'm seeing this patient for a follow-up. The patient remains intubated on a mechanical ventilator. Sedated with Diprivan at 30 mics per KG per minute. She is well sedated and she is synchronous with the mechanical ventilator. She is an assist-control mode of ventilation at the rate of 26 with a tidal volume of 400 and FiO2 of 60% with a PEEP of 5. The patient's chest x-ray from today is showing some mild improvement examination of the right midlung field. Otherwise the rest of the signs are all stable. ET tube is in a good location. The patient has consolidation of the right lung involving the right apex and the right lung base. There is also some perihilar pulmonary infiltrates bilaterally addition to some cardiomegaly. There is chronic elevation of the right hemidiaphragm. The blood gases from today showed a pH of 7.33 with a pCO2 of 47 and pO2 of 77 and it wasn't an FiO2 of 60%. The lactic acid level is down to 1.9 from 2.9 in addition. The patient was given briefly a sedation holiday and she was able to follow commands, simple commands and following that the patient was placed back on sedation. She did not require any pressors and the patient is maintaining home blood pressure. She was seen by cardiology today. Echocardiogram was done. The echo showed normal LV function with hypertensive heart disease and evidence of severe mitral stenosis with a mean gradient across the mitral valve of 20 mmHg as well as moderate to severe aortic stenosis with a mean gradient across the valve of 30 mmHg. The patient's cardiac rhythm is still sinus. She remains on broad-spectrum antibiotic coverage with a combination of Zosyn and Levaquin. The sputum cultures still negative for now. Blood cultures have been sent and the results are still negative for now. White cell count is elevated at 22.3. The patient was started on Lasix by cardiology 40 mg IV every 24 hours. She is also normal state rate of 40 mL an hour for now. On today's evaluation of 05/13/2018, the patient remains intubated on a mechanical ventilator. She is lightly sedated and the patient can easily aroused from propofol infusion. She remains on a mechanical ventilator the same vent setting. The blood gas from today, while on the 50% FiO2 showed a pH of 7.39 with a pCO2 of 40 and a pO2 of 81. White cell count is down to 17. The chest x-ray from today is showing persistent bilateral pulmonary infiltrates most on the right upper lobe and the right lower lobe. There is also small bilateral pleural effusion and cardiomegaly. ET tube remains in a good location. Cultures of been all negative thus far. The patient is afebrile and the patient is hemodynamically stable. Also, echocardiogram showed moderate to severe mitral stenosis and aortic valve stenosis and the patient was started on diuresis yesterday. I think we need to diurese this patient more aggressively over the next 24 hours. She'll feeds are running and the patient is tolerating her tube feeds without any major difficulties. Patient is producing adequate amount of urine output. Cardiac rhythm remains sinus. No other significant events over the past 24 hours. On 05/14/2089 seeing this patient for a follow-up. The patient remains intubated on a mechanical ventilator. She is on gentle sedation and she can easily aroused from her sedation and she can follow commands and answer questions appropriately. Her chest x-ray from today is showing some improvement in the aeration of the right lung. The patient has developed a consolidation and effusion the right lung base. The upper lobes are more clear. ET tube is in a good location. She remains on a mechanical ventilator. Assist-control mode of ventilation. She has a rate of 26, tidal volume of 400 , FiO2 is still at 60% with a PEEP of 5. Her blood gases from today showed a pH of 7.39 , pCO2 of 49 and pO2 of 81. I doubt the FiO2 down to 50%. I asked the nursing staff to stop the sedation completely and we checked her weaning parameters and the weaning parameters showed a NIF of -35 and vital Of 935 and the rapid shallow breathing index was less than 100. Based on that, the patient was given a spelled his breathing trial. She lasted for a total of 30 minutes. Following that she became tachycardic and cachectic. Blood gases obtained and the patient had a pH of 7.48 with a pCO2 of 48 and pO2 of 78. Nevertheless, based on ongoing shortness of breath, we decided not to extubate the patient knowing that she was not quite ready for extubation. Noted over the past 24 hours to monitor the patient has significant cardiac events. The patient went into an SVT. She was a rapid ventricular response. She had to be cardioverted. Subsequently she went into atrial fibrillation/flutter rhythm. Her rate is controlled for now. Nevertheless the patient is on Cardizem 30 mg by mouth 3 times a day. She was also placed on IV heparin by cardiology. As mentioned earlier she has valvular heart disease with severe mitral regurgitation stenosis. The diuretics have been cut down to 40 g IV Lasix every 12 hours. The net fluid balance is -2 L for yesterday. No fever. No chills. White cell count is down to 12.6. Objective - Vital Signs Vital signs: Vital Signs Temp 98.4 F 05/14/18 12:00 Pulse 113 H 05/14/18 12:30 Resp 28 H 05/14/18 12:30 BP 151/75 05/14/18 12:30 Pulse Ox 96 05/14/18 12:30 Intake & Output 05/13/18 05/14/18 05/14/18 18:59 06:59 18:59 Intake Total 1102.846 503.469 519.772 Output Total 1770 1465 1545 Balance -667.154 -961.531 -1025.228 Weight 112 kg Intake: IV 455.0 145.0 85.0 Levofloxacin 750Mg-D5w 150 Pmx 750 mg In Dextrose/ Water 1 150ml.bag @ 100 mls/hr IVPB Q24H [facility]ANJAN Rx#: [id number] Piperacillin-Tazobactam 3 75.0 25.0 25.0 .375 gm In Dextrose/Water 1 50ml.bag @ 12.5 mls/hr IVPB Q8H [facility]ANJAN Rx#: [id number] Sodium Chloride 0.9% 1, 230 120 60 000 ml @ 10 mls/hr IV . Q24H NIRANJAN Rx#:[id number] Intake, IV Titration 172.846 218.469 149.772 Amount Propofol 1,000 mg In 172.846 218.469 149.772 Empty Bag 1 bag @ Titrate IV .Q0M NIRANJAN Rx#: [id number] Tube Feeding 385 140 245 Other 90 40 Output: Urine 1770 1465 1545 Other: Voiding Method Indwelling Catheter Indwelling Catheter ABP, PAP, CO, CI - Last Documented Arterial Blood Pressure - Exam Patient currently intubated on mechanical ventilator, comfortable on propofol. Orogastric and orotracheal tube are both in place. Head exam was generally normal. There was no scleral icterus or corneal arcus. Mucous membranes were moist. Neck is short and supple and there is mild JVDs no goiter or neck masses appreciated. Orogastric and orotracheal tube are both in place and the patient has a left subclavian triple-lumen catheter in place. Lungs sounds are diminished bilaterally along with scattered rhonchi and scattered wheezes heard throughout the lung hillman bilaterally and crackles in the lung bases Heart sounds are irregular positive S1-S2 and there is no significant murmurs appreciated.Cardiac exam revealed the PMI to be normally situated and sized. The rhythm was regular and no extrasystoles were noted during several minutes of auscultation. The first and second heart sounds were normal and physiologic splitting of the second heart sound was noted. There were no murmurs, rubs, clicks, or gallops. Abdominal exam revealed normal bowel sounds. The abdomen was soft, non-tender, and without masses, organomegaly, or appreciable enlargement of the abdominal aorta. Overall the patient is obese and the patient's organs cannot be accurately palpated. No direct tenderness or rebound tensile guarding Examination of the extremities revealed easily palpable radial, femoral and pedal pulses. There was no cyanosis, clubbing or edema. Examination of the skin revealed no evidence of significant rashes, suspicious appearing nevi or other concerning lesions. Neurologically the patient is sedated and calm and comfortable most for extremities to painful stimulation - Labs CBC & Chem 7: 05/14/18 08:35 05/14/18 08:35 Labs: Abnormal Lab Results - Last 24 Hours (Table) 05/13/18 05/13/18 05/14/18 Range/Units 20:19 22:10 00:10 WBC (3.8-10.6) k/uL Neutrophils # (1.3-7.7) k/uL Neutrophils # (Manual) (1.3-7.7) k/uL Lymphocytes # (1.0-4.8) k/uL Lymphocytes # (Manual) (1.0-4.8) k/uL Myelocytes # (Manual) (0) k/uL ABG pH (7.35-7.45) ABG pCO2 (35-45) mmHg ABG pO2 (83-108) mmHg ABG HCO3 (21-25) mmol/L ABG Total CO2 (19-24) mmol/L Carbon Dioxide 33 H (22-30) mmol/L BUN 38 H (7-17) mg/dL Glucose 187 H (74-99) mg/dL POC Glucose (mg/dL) 139 H 138 H (75-99) mg/dL 05/14/18 05/14/18 05/14/18 Range/Units 04:48 05:10 05:10 WBC 15.0 H (3.8-10.6) k/uL Neutrophils # 13.6 H (1.3-7.7) k/uL Neutrophils # (Manual) (1.3-7.7) k/uL Lymphocytes # 0.7 L (1.0-4.8) k/uL Lymphocytes # (Manual) (1.0-4.8) k/uL Myelocytes # (Manual) (0) k/uL ABG pH 7.46 H (7.35-7.45) ABG pCO2 47 H (35-45) mmHg ABG pO2 80 L (83-108) mmHg ABG HCO3 33 H (21-25) mmol/L ABG Total CO2 35 H (19-24) mmol/L Carbon Dioxide 32 H (22-30) mmol/L BUN 45 H (7-17) mg/dL Glucose 163 H (74-99) mg/dL POC Glucose (mg/dL) (75-99) mg/dL 05/14/18 05/14/18 05/14/18 Range/Units 06:04 08:35 08:35 WBC 12.6 H (3.8-10.6) k/uL Neutrophils # (1.3-7.7) k/uL Neutrophils # (Manual) 11.00 H (1.3-7.7) k/uL Lymphocytes # (1.0-4.8) k/uL Lymphocytes # (Manual) 0.76 L (1.0-4.8) k/uL Myelocytes # (Manual) 0.13 H (0) k/uL ABG pH (7.35-7.45) ABG pCO2 (35-45) mmHg ABG pO2 (83-108) mmHg ABG HCO3 (21-25) mmol/L ABG Total CO2 (19-24) mmol/L Carbon Dioxide 34 H (22-30) mmol/L BUN 45 H (7-17) mg/dL Glucose 157 H (74-99) mg/dL POC Glucose (mg/dL) 159 H (75-99) mg/dL 05/14/18 05/14/18 Range/Units 12:07 13:07 WBC (3.8-10.6) k/uL Neutrophils # (1.3-7.7) k/uL Neutrophils # (Manual) (1.3-7.7) k/uL Lymphocytes # (1.0-4.8) k/uL Lymphocytes # (Manual) (1.0-4.8) k/uL Myelocytes # (Manual) (0) k/uL ABG pH 7.48 H (7.35-7.45) ABG pCO2 48 H (35-45) mmHg ABG pO2 78 L (83-108) mmHg ABG HCO3 36 H (21-25) mmol/L ABG Total CO2 37 H (19-24) mmol/L Carbon Dioxide (22-30) mmol/L BUN (7-17) mg/dL Glucose (74-99) mg/dL POC Glucose (mg/dL) 158 H (75-99) mg/dL Microbiology - Last 24 Hours (Table) 05/11/18 21:09 Gram Stain - Final Sputum Sputum Culture - Final 05/11/18 15:56 Blood Culture - Preliminary Blood No Growth after 48 hours Assessment and Plan Plan: Assessment 1 acute hypoxic respiratory failure with bilateral lower lobe pneumonia and possibly component of CHF. The patient presented emergency department with acute respiratory arrest, intubated and placed on a mechanical ventilator On 05/12/2018 the patient remains intubated on a mechanical ventilator. There is improvement in oxygenation and FiO2 has been drop down to 60%. There is also further weaning the FiO2 down knowing that the patient's pulse ox and the pO2 is above 100. Meanwhile, the sputum cultures still pending. The patient is on a broad-spectrum antibiotic coverage with a combination of Zosyn and Levaquin. The patient is still sedated on a mechanical ventilator, intubated. On 05/13/2018, the patient remains on a mechanical ventilator. The patient is oxygenating and ventilating well. She is on the same antibiotic coverage. There is persistent but the pulmonary consolidation and infiltrates most on the right. The patient is on Zosyn and Levaquin the patient will be started on diuretics should there be a component of interstitial/pulmonary edema in association with his underlying pneumonia. Cultures of been all negative thus far. The patient remains hemodynamically stable. On 05/14/2018, the patient is still on a mechanical ventilator. There is some improvement in the chest x-ray findings and the patient is not ready for extubation yet. Hemodynamically stable for now. Overnight the patient had issues with SVT and currently she is in atrial fibrillation with a controlled rate. She is being diuresed gently. She is also being covered with broad- spectrum antibiotics regarding bilateral pneumonia. The sputum culture is negative for now. 2 bilateral lower lobe pneumonia with airspace disease and consolidations. Rule out aspiration pneumonia. Rule out with acquired pneumonia. Suspect bacterial pneumonia. 3 acute cardiac pulmonary arrest with brief loss in progress where the patient received CPR and received a dose of epinephrine with return of spontaneous circulation. Currently on no pressors. No signs of any hypoxic encephalopathy and the patient was given a brief sedation holiday and she was able to follow simple commands without any major difficulties 4 lactic acidosis secondary to above, improving 5 leukocytosis secondary to above, improving 6 morbid obesity with a BMI of 43.4 7 obstructive sleep apnea 8 severe persistent bronchial asthma 9 history of right hemidiaphragmatic plication for unilateral paralysis 10 moderate to severe severe aortic stenosis and mitral stenosis, with a preserved LV function as evident on the echocardiogram 11 history of TIA 12 nephrolithiasis 13 gouty arthritis 14 hypothyroidism 13 hypertension 16 hyperlipidemia 17 history of atrial fibrillation on Rythmol and her current rhythm is back in atrial fibrillation with a controlled rate. 18 acid reflux 19 gout 20 degenerative arthritis 21 episodes of SVT, cardioverted Plan Not ready for extubation yet. She was able to perform a spontaneous breathing trial yesterday and the patient got quite tired and tachypneic and tachycardic. We'll give the patient another 24 hours of diuresis. We'll monitor the cardiac rhythm. We'll continue the antibiotics. Monitor the blood gas. Sedation holiday is point is breathing trial in a.m. Continue bronchodilators. Continue steroids. Enteral feeding for nutritional support. Cardizem oral for rate control. IV heparin. We'll continue to follow. Critically care evaluation that was done and more than 30 minutes. Case was discussed with the family. Time with Patient: Greater than 30
[2018-05-14] MEDS: HEPARIN SODIUM,PORCINE 5,000 UNIT/ML 1 ML VIAL IV PRN (16:19)
[2018-05-14] MEDS: LEVOFLOXACIN 750MG-D5W PMX 750 MG in DEXTROSE/WATER 1 150ML.BAG IVPB SCH (17:55)
[2018-05-14 18:17] LABS: Glucose,Whole Blood 151 mg/dL (75-99)
[2018-05-14 23:52] LABS: Glucose,Whole Blood 144 mg/dL (75-99)
--- NOTE | 2018-05-15 00:09 | P.PN ---
Subjective Progress Note Date: 05/14/18 Principal diagnosis: Acute hypoxic respiratory failure secondary to pneumonia and CHF Interval history:Patient is on 73-year-old female with a known history of obstructive sleep apnea on biPAP, Hypothyroidism, valvular heart disease with aortic stenosis and congestive heart failure and multiple other medical problems including morbid obesity presented to hospital with worsening shortness of breath. Patient was at [facility] studies where she had progressive shortness of breath. Patient's pulse ox was low 70s upon EMS arrival. Patient was placed on 100% nonrebreather but the patient remained hypoxic. Patient was placed on BiPAP. And was transferred to ER. Patient was given breathing treatments while in the ER without much relief. Patient was subsequently intubated due to acute hypoxic respiratory failure. Currently patient is intubated and is in the medical intensive care unit. Chest x-ray showed no evidence of pneumothorax. Bilateral air space disease was present in the perihilar region in the lower lobes bilaterally right more than left. WC count was 22 on admission. Lactic acid 5.9 on admission ABG showed pH of 7.21 pCO2 63 and PaO2 88 with 100% FiO2. Patient is currently on Solu-Medrol 60 g every 6 hourly along with duo nebs and antibiotics in the form of levofloxacin and Zosyn. Cardiology and pulmonary is following. Chest x-ray this morning showed mildly improved aeration of the right lung otherwise stable 2-D echocardiogram showed ejection fraction 50-55% with severe severe mitral stenosis and severe aortic stenosis. Review of Systems Patient is currently intubated and sedated. Complete review of systems could not be apparent from the patient 05/13/2018 remains vent dependent, FiO2 50%/+5 of PEEP. Maintained on DIprovan. Telemetry sinus rhythm. Diuresing well on Lasix IV push with 24- hour I&O reflecting a negative fluid balance. Chest x-ray stable, persistent scattered infiltrates to bilateral lungs greatest in the right lung, small bilateral pleural effusions. Maintained on Zosyn and Levaquin .T-max 99.1, leukocytosis improving, sputum culture pending, preliminary blood cultures negative. Tolerating tube feeds with minimal to no residuals. IV fluids PIVL' D. 05/14/2018 Patient is currently vent dependent with assist control. Patient was tried for weaning today but patient was agitated and was sedated again. Patient is being continued on IV Lasix and Cardizem has been changed to oral. Patient went into atrial fibrillation with rapid ventricular rate last night and was started on Cardizem.. Pulmonary and cardiology is following. Chest x-ray showed slight improvement. Objective - Vital Signs Vital signs: Vital Signs Temp 97.6 F 05/14/18 20:00 Pulse 97 05/14/18 23:25 Resp 24 05/14/18 23:00 BP 146/66 05/14/18 23:00 Pulse Ox 99 05/14/18 23:00 Intake & Output 05/14/18 05/14/18 05/15/18 06:59 18:59 06:59 Intake Total 621.617 5486.729 201.348 Output Total 1465 1900 330 Balance -961.531 -867.271 -128.652 Weight 112 kg Intake: IV 145.0 135.0 57.5 Piperacillin-Tazobactam 3 25.0 25.0 37.5 .375 gm In Dextrose/Water 1 50ml.bag @ 12.5 mls/hr IVPB Q8H NIRANJAN Rx#: [id number] Sodium Chloride 0.9% 1, 120 110 20 000 ml @ 10 mls/hr IV . Q24H NIRANJAN Rx#:[id number] Intake, IV Titration 218.469 392.729 38.848 Amount Heparin Sod,Pork in 0.45% 152.797 NaCl 25,000 unit In 0.45 % NaCl 1 500ml.bag @ 8.9 UNITS/KG/HR 19.93 mls/hr IV .Q24H NIRANJAN Rx#: [id number] Propofol 1,000 mg In 218.469 239.932 38.848 Empty Bag 1 bag @ Titrate IV .Q0M NIRANJAN Rx#: [id number] Tube Feeding 140 455 105 Other 50 Output: Urine 1465 1900 330 Other: Voiding Method Indwelling Catheter Indwelling Catheter Indwelling Catheter ABP, PAP, CO, CI - Last Documented Arterial Blood Pressure - Exam - Exam Patient is lying in the bed comfortably, no acute distress, sedated and intubated.. HEENT: Normocephalic. Neck is supple. Pupils reactive. Nostrils clear. Oral cavity is moist. Ears reveal no drainage. Neck reveals no JVD, carotid bruits, or thyromegaly. CHEST EXAMINATION: Trachea is central. Symmetrical expansion. Endotracheal tube in place. Fine bibasilar crackles with Scattered rhonchi and expiratory wheezes, Prolonged expiration. CARDIAC: Normal S1, S2 with no gallops. Systolic murmur ABDOMEN: Soft. Bowel sounds normal. No organomegaly. No abdominal bruits. Extremities: reveal no edema. No clubbing or cyanosis Neurologically patient is currently sedated and intubated. No focal deficits noted Skin: No rash or skin lesions. Musculoskeletal: No joint swelling or deformity. - Labs CBC & Chem 7: 05/14/18 08:35 05/14/18 08:35 Labs: Abnormal Lab Results - Last 24 Hours (Table) 05/14/18 05/14/18 05/14/18 Range/Units 00:10 04:48 05:10 WBC (3.8-10.6) k/uL Neutrophils # (1.3-7.7) k/uL Neutrophils # (Manual) (1.3-7.7) k/uL Lymphocytes # (1.0-4.8) k/uL Lymphocytes # (Manual) (1.0-4.8) k/uL Myelocytes # (Manual) (0) k/uL APTT (22.0-30.0) sec ABG pH 7.46 H (7.35-7.45) ABG pCO2 47 H (35-45) mmHg ABG pO2 80 L (83-108) mmHg ABG HCO3 33 H (21-25) mmol/L ABG Total CO2 35 H (19-24) mmol/L Carbon Dioxide 32 H (22-30) mmol/L BUN 45 H (7-17) mg/dL Glucose 163 H (74-99) mg/dL POC Glucose (mg/dL) 138 H (75-99) mg/dL 05/14/18 05/14/18 05/14/18 Range/Units 05:10 06:04 08:35 WBC 15.0 H (3.8-10.6) k/uL Neutrophils # 13.6 H (1.3-7.7) k/uL Neutrophils # (Manual) (1.3-7.7) k/uL Lymphocytes # 0.7 L (1.0-4.8) k/uL Lymphocytes # (Manual) (1.0-4.8) k/uL Myelocytes # (Manual) (0) k/uL APTT (22.0-30.0) sec ABG pH (7.35-7.45) ABG pCO2 (35-45) mmHg ABG pO2 (83-108) mmHg ABG HCO3 (21-25) mmol/L ABG Total CO2 (19-24) mmol/L Carbon Dioxide 34 H (22-30) mmol/L BUN 45 H (7-17) mg/dL Glucose 157 H (74-99) mg/dL POC Glucose (mg/dL) 159 H (75-99) mg/dL 05/14/18 05/14/18 05/14/18 Range/Units 08:35 12:07 13:07 WBC 12.6 H (3.8-10.6) k/uL Neutrophils # (1.3-7.7) k/uL Neutrophils # (Manual) 11.00 H (1.3-7.7) k/uL Lymphocytes # (1.0-4.8) k/uL Lymphocytes # (Manual) 0.76 L (1.0-4.8) k/uL Myelocytes # (Manual) 0.13 H (0) k/uL APTT (22.0-30.0) sec ABG pH 7.48 H (7.35-7.45) ABG pCO2 48 H (35-45) mmHg ABG pO2 78 L (83-108) mmHg ABG HCO3 36 H (21-25) mmol/L ABG Total CO2 37 H (19-24) mmol/L Carbon Dioxide (22-30) mmol/L BUN (7-17) mg/dL Glucose (74-99) mg/dL POC Glucose (mg/dL) 158 H (75-99) mg/dL 05/14/18 05/14/18 05/14/18 Range/Units 14:44 18:15 23:00 WBC (3.8-10.6) k/uL Neutrophils # (1.3-7.7) k/uL Neutrophils # (Manual) (1.3-7.7) k/uL Lymphocytes # (1.0-4.8) k/uL Lymphocytes # (Manual) (1.0-4.8) k/uL Myelocytes # (Manual) (0) k/uL APTT 30.2 H 42.6 H (22.0-30.0) sec ABG pH (7.35-7.45) ABG pCO2 (35-45) mmHg ABG pO2 (83-108) mmHg ABG HCO3 (21-25) mmol/L ABG Total CO2 (19-24) mmol/L Carbon Dioxide (22-30) mmol/L BUN (7-17) mg/dL Glucose (74-99) mg/dL POC Glucose (mg/dL) 151 H (75-99) mg/dL 05/14/18 Range/Units 23:48 WBC (3.8-10.6) k/uL Neutrophils # (1.3-7.7) k/uL Neutrophils # (Manual) (1.3-7.7) k/uL Lymphocytes # (1.0-4.8) k/uL Lymphocytes # (Manual) (1.0-4.8) k/uL Myelocytes # (Manual) (0) k/uL APTT (22.0-30.0) sec ABG pH (7.35-7.45) ABG pCO2 (35-45) mmHg ABG pO2 (83-108) mmHg ABG HCO3 (21-25) mmol/L ABG Total CO2 (19-24) mmol/L Carbon Dioxide (22-30) mmol/L BUN (7-17) mg/dL Glucose (74-99) mg/dL POC Glucose (mg/dL) 144 H (75-99) mg/dL Microbiology - Last 24 Hours (Table) 05/11/18 15:56 Blood Culture - Preliminary Blood No Growth after 72 hours 05/11/18 21:09 Gram Stain - Final Sputum Sputum Culture - Final Assessment and Plan Assessment: Acute hypoxic respiratory failure. Multifactorial secondary to pneumonia and CHF and COPD. Currently patient is intubated. Bilateral lower lobe pneumonia. Right greater than left Acute cardio pulmonary arrest with brief loss of pulse status post CPR and a dose of epinephrine with return of spontaneous circulation. Atrial fibrillation with rapid ventricular rate. New-onset. Off Cardizem drip. Lactic acidosis 5.9 on admission improving Sepsis secondary to pneumonia Obstructive sleep apnea on BiPAP at home Morbid obesity with BMI 44.9 with possible underlying obesity hypoventilation Acute on chronic CHF with systolic dysfunction as well as valvular heart disease History of right hemidiaphragmatic plication for unilateral paralysis History of TIA Nephrolithiasis Osteoarthritis Hypothyroidism with low free T4 level and elevated TSH. Uncontrolled History of atrial fibrillation. Paroxysmal. Currently in sinus rhythm on Rythmol GERD Gout Plan: Patient will be continued on mechanical ventilation. Pulmonary and cardiology is following. Current with IV steroids, antibiotics, breathing treatments and IV Lasix 40 mg daily. Continue with GI DVT prophylaxis and follow up closely. Continue with home medications and further recommendations based on the clinical course. Prognosis is guarded with multiple medical problems and comorbid conditions. Time with Patient: Greater than 30
[2018-05-15] MEDS: INSULIN ASPART 100 UNIT/ML 1 ML 10 ML VIAL SQ SCH ×5 (00:16→23:26)
[2018-05-15] MEDS: methylPREDNISolone SOD SUCCI 125 MG/2 ML VIAL IV SCH ×5 (00:17→23:26)
[2018-05-15] MEDS: HEPARIN SODIUM,PORCINE 5,000 UNIT/ML 1 ML VIAL IV PRN (00:22)
[2018-05-15] MEDS: PROPOFOL 1,000 MG in EMPTY BAG 1 BAG IV SCH ×7 (00:23→22:59)
[2018-05-15] MEDS: IPRATROPIUM-ALBUTEROL 3 ML NEB INHALATION SCH ×6 (03:26→23:07)
[2018-05-15 04:43] LABS: ABG Base Excess 11.5 mmol/L; ABG HCO3 35 mmol/L (21-25); ABG PCO2 51 mmHg (35-45); ABG PH 7.45 (7.35-7.45); ABG PO2 91 mmHg (83-108); ABG TCO2 37 mmol/L (19-24)
[2018-05-15] MEDS: PIPERACILLIN-TAZOBACTAM 3.375 GM in DEXTROSE/WATER 1 50ML.BAG IVPB SCH ×3 (04:47→19:28)
[2018-05-15] MEDS: HEPARIN SOD,PORK IN 0.45% NACL 25,000 UNIT in 0.45% NACL 1 500ML.BAG IV SCH ×2 (05:20→20:53)
[2018-05-15 06:40] LABS: Glucose,Whole Blood 175 mg/dL (75-99)
[2018-05-15] MEDS: LEVOTHYROXINE 50 MCG TAB PO SCH (06:42)
[2018-05-15 06:56] LABS: Basophils % (A) 0 %; Eosinophils % (A) 0 %; HCT 37.4 % (34.0-46.0); HGB 11.9 gm/dL (11.4-16.0); Hypochromasia Slight; Lymphocytes # (A) 0.9 k/uL (1.0-4.8); Lymphocytes % (A) 8 %; MCH 28.6 pg (25.0-35.0); MCHC 31.7 g/dL (31.0-37.0); MCV 90.3 fL (80.0-100.0); Mean Platelet Volume 6.9; Monocytes # (A) 0.6 k/uL (0-1.0); Monocytes % (A) 6 %; Neutrophils # (A) 9.2 k/uL (1.3-7.7); Neutrophils % (A) 85 %; Platelet Count 219 k/uL (150-450); RBC 4.14 m/uL (3.80-5.40); RDW 14.1 % (11.5-15.5); WBC 10.8 k/uL (3.8-10.6)
[2018-05-15 07:25] LABS: Anion Gap 5 mmol/L; Blood Urea Nitrogen 48 mg/dL (7-17); Calcium 8.6 mg/dL (8.4-10.2); Carbon Dioxide 35 mmol/L (22-30); Chloride 103 mmol/L (98-107); Glucose 167 mg/dL (74-99); Magnesium 2.2 mg/dL (1.6-2.3); Phosphorus 3.8 mg/dL (2.5-4.5); Potassium 3.8 mmol/L (3.5-5.1); Sodium 143 mmol/L (137-145)
--- NOTE | 2018-05-15 07:50 | P.PN ---
Subjective Progress Note Date: 05/15/18 Principal diagnosis: Acute hypoxic respiratory failure This is a 77-year-old female patient who was admitted to the intensive care unit with cardiopulmonary arrest. Currently the patient is intubated and she is on ventilator. The patient was in her usual state of health until yesterday when she was at the [facility] and she started experiencing shortness of breath. She didn't go home and she did to back-to- back breathing treatment without any improvement in her symptoms. At that point the patient called her daughter came in and found her mother in respiratory distress where at that point EMS was called and the patient was hypoxic where she was brought to the emergency room. In the ER the patient did have cardiopulmonary arrest with PDA and she received 2 epinephrine and she was intubated at that point and she was brought to the intensive care unit. Currently the patient is intubated unit nit. Currently the patient is intubated but remain hemodynamically stable and she is not on any vasopressors. The patient does have history of obstructive sleep apnea and she uses CPAP machine. She is obese. The side that interim of cardiac history she does have history of mild nonobstructive coronary artery disease based on heart catheterization was performed in 2013. The patient underwent an echocardiogram bedside today and that revealed normal left ventricle systolic function with hypertensive heart disease and evidence off severe mitral stenosis with a mean gradient across the mitral valve 20 mmHg as well as moderate to severe aortic stenosis with a mean gradient across aortic valve of 30 mmHg. The chest x-ray showed what it seems to be possible bilateral pneumonia with possible component of congestive heart failure. The BNP came in to be around 1000. The EKG showed sinus rhythm with sinus tachycardia and nonspecific changes in the lateral leads. The first set of troponin came in to be normal and we'll obtain 2 more sets of troponin. The lactic acid is elevated. I'll follow-up with the patient today, she continues to be in acute respiratory failure and intubated on ventilator. Yesterday she went into an A. fib with RVR and converted to normal sinus mechanism. Hemodynamically she is not on any vasopressors but her pressure has been marginally low. She is on Lasix 40 mg IV daily. Her examination is better in terms of crackles in the chest but the chest x-ray continues to show findings consistent with CHF. She is on heparin IV as well. I'm going to continue the Cardizem by mouth, start the patient on oral anticoagulation was Coumadin, and check INR tomorrow. Objective - Vital Signs Vital signs: Vital Signs Temp 97.8 F 05/15/18 04:00 Pulse 82 05/15/18 07:00 Resp 22 05/15/18 07:00 BP 111/61 05/15/18 07:00 Pulse Ox 96 05/15/18 07:00 Intake & Output 05/14/18 05/15/18 05/15/18 18:59 06:59 18:59 Intake Total 8722.054 1705.355 45 Output Total 1900 735 55 Balance -867.271 522.355 -10 Weight 112.9 kg Intake: IV 135.0 140.0 10 Piperacillin-Tazobactam 3 25.0 50.0 .375 gm In Dextrose/Water 1 50ml.bag @ 12.5 mls/hr IVPB Q8H NIRANJAN Rx#: [id number] Sodium Chloride 0.9% 1, 110 90 10 000 ml @ 10 mls/hr IV . Q24H NIRANJAN Rx#:[id number] Intake, IV Titration 392.729 557.355 Amount Heparin Sod,Pork in 0.45% 152.797 347.203 NaCl 25,000 unit In 0.45 % NaCl 1 500ml.bag @ 8.9 UNITS/KG/HR 19.93 mls/hr IV .Q24H NIRANJAN Rx#: [id number] Propofol 1,000 mg In 239.932 210.152 Empty Bag 1 bag @ Titrate IV .Q0M NIRANJAN Rx#: [id number] Tube Feeding 455 560 35 Other 50 Output: Urine 1900 735 55 Other: Voiding Method Indwelling Catheter Indwelling Catheter ABP, PAP, CO, CI - Last Documented Arterial Blood Pressure 24 - Constitutional General appearance: Present: no acute distress - Respiratory Respiratory: bilateral: diminished - Cardiovascular Rhythm: regular Heart sounds: normal: S1, S2 Abnormal Heart Sounds: Present: systolic murmur - Labs CBC & Chem 7: 05/15/18 06:20 05/15/18 06:20 Labs: Abnormal Lab Results - Last 24 Hours (Table) 05/14/18 05/14/18 05/14/18 Range/Units 08:35 08:35 12:07 WBC 12.6 H (3.8-10.6) k/uL Neutrophils # (1.3-7.7) k/uL Neutrophils # (Manual) 11.00 H (1.3-7.7) k/uL Lymphocytes # (1.0-4.8) k/uL Lymphocytes # (Manual) 0.76 L (1.0-4.8) k/uL Myelocytes # (Manual) 0.13 H (0) k/uL APTT (22.0-30.0) sec ABG pH (7.35-7.45) ABG pCO2 (35-45) mmHg ABG pO2 (83-108) mmHg ABG HCO3 (21-25) mmol/L ABG Total CO2 (19-24) mmol/L Carbon Dioxide 34 H (22-30) mmol/L BUN 45 H (7-17) mg/dL Glucose 157 H (74-99) mg/dL POC Glucose (mg/dL) 158 H (75-99) mg/dL 05/14/18 05/14/18 05/14/18 Range/Units 13:07 14:44 18:15 WBC (3.8-10.6) k/uL Neutrophils # (1.3-7.7) k/uL Neutrophils # (Manual) (1.3-7.7) k/uL Lymphocytes # (1.0-4.8) k/uL Lymphocytes # (Manual) (1.0-4.8) k/uL Myelocytes # (Manual) (0) k/uL APTT 30.2 H (22.0-30.0) sec ABG pH 7.48 H (7.35-7.45) ABG pCO2 48 H (35-45) mmHg ABG pO2 78 L (83-108) mmHg ABG HCO3 36 H (21-25) mmol/L ABG Total CO2 37 H (19-24) mmol/L Carbon Dioxide (22-30) mmol/L BUN (7-17) mg/dL Glucose (74-99) mg/dL POC Glucose (mg/dL) 151 H (75-99) mg/dL 05/14/18 05/14/18 05/15/18 Range/Units 23:00 23:48 04:33 WBC (3.8-10.6) k/uL Neutrophils # (1.3-7.7) k/uL Neutrophils # (Manual) (1.3-7.7) k/uL Lymphocytes # (1.0-4.8) k/uL Lymphocytes # (Manual) (1.0-4.8) k/uL Myelocytes # (Manual) (0) k/uL APTT 42.6 H (22.0-30.0) sec ABG pH (7.35-7.45) ABG pCO2 51 H (35-45) mmHg ABG pO2 (83-108) mmHg ABG HCO3 35 H (21-25) mmol/L ABG Total CO2 37 H (19-24) mmol/L Carbon Dioxide (22-30) mmol/L BUN (7-17) mg/dL Glucose (74-99) mg/dL POC Glucose (mg/dL) 144 H (75-99) mg/dL 05/15/18 05/15/18 05/15/18 Range/Units 06:20 06:20 06:20 WBC 10.8 H (3.8-10.6) k/uL Neutrophils # 9.2 H (1.3-7.7) k/uL Neutrophils # (Manual) (1.3-7.7) k/uL Lymphocytes # 0.9 L (1.0-4.8) k/uL Lymphocytes # (Manual) (1.0-4.8) k/uL Myelocytes # (Manual) (0) k/uL APTT 59.2 H (22.0-30.0) sec ABG pH (7.35-7.45) ABG pCO2 (35-45) mmHg ABG pO2 (83-108) mmHg ABG HCO3 (21-25) mmol/L ABG Total CO2 (19-24) mmol/L Carbon Dioxide 35 H (22-30) mmol/L BUN 48 H (7-17) mg/dL Glucose 167 H (74-99) mg/dL POC Glucose (mg/dL) (75-99) mg/dL 05/15/18 Range/Units 06:38 WBC (3.8-10.6) k/uL Neutrophils # (1.3-7.7) k/uL Neutrophils # (Manual) (1.3-7.7) k/uL Lymphocytes # (1.0-4.8) k/uL Lymphocytes # (Manual) (1.0-4.8) k/uL Myelocytes # (Manual) (0) k/uL APTT (22.0-30.0) sec ABG pH (7.35-7.45) ABG pCO2 (35-45) mmHg ABG pO2 (83-108) mmHg ABG HCO3 (21-25) mmol/L ABG Total CO2 (19-24) mmol/L Carbon Dioxide (22-30) mmol/L BUN (7-17) mg/dL Glucose (74-99) mg/dL POC Glucose (mg/dL) 175 H (75-99) mg/dL Microbiology - Last 24 Hours (Table) 05/11/18 15:56 Blood Culture - Preliminary Blood No Growth after 72 hours 05/11/18 21:09 Gram Stain - Final Sputum Sputum Culture - Final Assessment and Plan Assessment: Assessment #1 acute respiratory failure #2 cardiopulmonary arrest #3 possible bilateral pneumonia #4 congestive heart failure secondary to systolic dysfunction and valvular heart disease #5 valvular heart disease with severe mitral stenosis and moderate to severe aortic stenosis #6 obstructive sleep apnea #7 morbid obesity Plan #1 currently the patient is intubated and she is on ventilator. Bioinformatics Scientist on the case #2 she is getting treated for bilateral pneumonia #3 continue the current dose of IV Lasix which is 40 mg daily #4 continue Cardizem by mouth #5 start the patient on oral anticoagulation with Coumadin #6 follow-up with the patient.
[2018-05-15] MEDS ORDERED: RX INFO: IV CONTRAST WAS GIVEN 1 EACH MISC MISCELLANE PRN (07:55)
--- NOTE | 2018-05-15 08:11 | XR ---
EXAMINATION TYPE: XR chest 1V portable DATE OF EXAM: 05/15/2018 HISTORY: Tube placement. REFERENCE: Previous study dated 05/14/2018. FINDINGS: The patient is ET tube, NG tube and left subclavian catheter remain in place, unchanged in appearance. There continues be bibasilar airspace disease. There are bilateral effusions. The heart is not enlarg ed. IMPRESSION: NO SIGNIFICANT INTERVAL CHANGE IN THE APPEARANCE OF CHEST.
[2018-05-15] MEDS ORDERED: Potassium Replacement Protocol 1 EACH MISC MISCELLANE PRN (08:12)
[2018-05-15] MEDS: DILTIAZEM ORAL 30 MG TAB PO SCH ×3 (08:15→21:43)
[2018-05-15] MEDS: CHLORHEXIDINE GLUCONATE 15 ML CUP MUCOUS MEM SCH ×2 (08:15→20:55)
[2018-05-15] MEDS: PANTOPRAZOLE 40 MG/10 ML VIAL IVP SCH (08:16)
[2018-05-15 08:25] LABS: INR 1.3 (<1.2)
[2018-05-15] MEDS ORDERED: POTASSIUM BICARBONATE/CIT AC 20 MEQ TABLET.EFF NG-TUBE SCH ×2 (09:00→18:00)
[2018-05-15] MEDS ORDERED: FUROSEMIDE 10 MG/ML 4 ML VIAL IV SCH (09:00)
--- NOTE | 2018-05-15 10:39 | P.PN ---
Subjective Progress Note Date: 05/15/18 A 77-year-old morbidly obese female patient with known history of obstructive sleep apnea maintained on BiPAP therapy on outpatient basis and addition to chronic bronchial asthma and significant limitation in exercise capacity secondary to her age body habitus and comorbidities, presented to the hospital because of an acute respiratory failure. I interviewed the daughter. Apparently the patient was at [employer] studies and she was getting progressively more short of breath. After arriving home she did [id number] breathing treatments without much relief. Ultimately she called her daughter who arrived to the scene and she saw that her mother was having more chest congestion, respirator distress, wheezing, and she was headed into respiratory failure. EMS was called to the scene. Upon arrival of EMS, the patient's pulse ox was in the low 70s pH was placed on on the percent nonrebreather facemask as she remained hypoxic and following that the patient was placed on BiPAP. The patient was moved to the emergency department. The patient was seen immediately after she arrived the ED. She was hypoxic, and she was cold and clammy and salmon color and cyanotic. As we were getting ready to intubate the patient, the patient lost pulse briefly and she became bradycardic. She went to the [facility]. She received a dose of epinephrine. She was started on CPR. Within 1 minute she recovered her pulse and the blood pressure. She was intubated and placed on a mechanical ventilator. She currently has a 7.[address] She is an assist-control mode of ventilation at the rate of 26, tidal volume of 400, FiO2 of 100% and a PEEP of 5. Immediately postintubation the blood pressure improved and she had a systolic above 200. She was started on propofol for sedation and her current systolic blood pressure in the 150s. A Poe catheter was inserted. The peak pressures in the 38-40 range. Static pressures around 32. The patient has significant bronchospasm and wheezing. A chest x-ray was done post intubation and post line placement and the chest x- ray showed no evidence of any pneumothorax. Bilateral air space disease was present in the perihilar regions in the lower lobes bilaterally right more than left. ET tube and NG tube were in good location. The patient also had a left subclavian triple-lumen catheter that was inserted without any complications. She was started on IV Zosyn knowing that the patient also briefly aspirated and vomited at the time of the intubation. Labs showed a white cell count of 22. The postintubation blood gas showed a pH of 7.21 with a pCO2 of 63 and pO2 of 88 and this blood gases on 100% FiO2. Initial lactic acid level was at 5.9 On today's evaluation of 05/12/2018 I'm seeing this patient for a follow-up. The patient remains intubated on a mechanical ventilator. Sedated with Diprivan at 30 mics per KG per minute. She is well sedated and she is synchronous with the mechanical ventilator. She is an assist-control mode of ventilation at the rate of 26 with a tidal volume of 400 and FiO2 of 60% with a PEEP of 5. The patient's chest x-ray from today is showing some mild improvement examination of the right midlung field. Otherwise the rest of the signs are all stable. ET tube is in a good location. The patient has consolidation of the right lung involving the right apex and the right lung base. There is also some perihilar pulmonary infiltrates bilaterally addition to some cardiomegaly. There is chronic elevation of the right hemidiaphragm. The blood gases from today showed a pH of 7.33 with a pCO2 of 47 and pO2 of 77 and it wasn't an FiO2 of 60%. The lactic acid level is down to 1.9 from 2.9 in addition. The patient was given briefly a sedation holiday and she was able to follow commands, simple commands and following that the patient was placed back on sedation. She did not require any pressors and the patient is maintaining home blood pressure. She was seen by cardiology today. Echocardiogram was done. The echo showed normal LV function with hypertensive heart disease and evidence of severe mitral stenosis with a mean gradient across the mitral valve of 20 mmHg as well as moderate to severe aortic stenosis with a mean gradient across the valve of 30 mmHg. The patient's cardiac rhythm is still sinus. She remains on broad-spectrum antibiotic coverage with a combination of Zosyn and Levaquin. The sputum cultures still negative for now. Blood cultures have been sent and the results are still negative for now. White cell count is elevated at 22.3. The patient was started on Lasix by cardiology 40 mg IV every 24 hours. She is also normal state rate of 40 mL an hour for now. On today's evaluation of 05/13/2018, the patient remains intubated on a mechanical ventilator. She is lightly sedated and the patient can easily aroused from propofol infusion. She remains on a mechanical ventilator the same vent setting. The blood gas from today, while on the 50% FiO2 showed a pH of 7.39 with a pCO2 of 40 and a pO2 of 81. White cell count is down to 17. The chest x-ray from today is showing persistent bilateral pulmonary infiltrates most on the right upper lobe and the right lower lobe. There is also small bilateral pleural effusion and cardiomegaly. ET tube remains in a good location. Cultures of been all negative thus far. The patient is afebrile and the patient is hemodynamically stable. Also, echocardiogram showed moderate to severe mitral stenosis and aortic valve stenosis and the patient was started on diuresis yesterday. I think we need to diurese this patient more aggressively over the next 24 hours. She'll feeds are running and the patient is tolerating her tube feeds without any major difficulties. Patient is producing adequate amount of urine output. Cardiac rhythm remains sinus. No other significant events over the past 24 hours. On 05/14/2089 seeing this patient for a follow-up. The patient remains intubated on a mechanical ventilator. She is on gentle sedation and she can easily aroused from her sedation and she can follow commands and answer questions appropriately. Her chest x-ray from today is showing some improvement in the aeration of the right lung. The patient has developed a consolidation and effusion the right lung base. The upper lobes are more clear. ET tube is in a good location. She remains on a mechanical ventilator. Assist-control mode of ventilation. She has a rate of 26, tidal volume of 400 , FiO2 is still at 60% with a PEEP of 5. Her blood gases from today showed a pH of 7.39 , pCO2 of 49 and pO2 of 81. I doubt the FiO2 down to 50%. I asked the nursing staff to stop the sedation completely and we checked her weaning parameters and the weaning parameters showed a NIF of -35 and vital Of 935 and the rapid shallow breathing index was less than 100. Based on that, the patient was given a spelled his breathing trial. She lasted for a total of 30 minutes. Following that she became tachycardic and cachectic. Blood gases obtained and the patient had a pH of 7.48 with a pCO2 of 48 and pO2 of 78. Nevertheless, based on ongoing shortness of breath, we decided not to extubate the patient knowing that she was not quite ready for extubation. Noted over the past 24 hours to monitor the patient has significant cardiac events. The patient went into an SVT. She was a rapid ventricular response. She had to be cardioverted. Subsequently she went into atrial fibrillation/flutter rhythm. Her rate is controlled for now. Nevertheless the patient is on Cardizem 30 mg by mouth 3 times a day. She was also placed on IV heparin by cardiology. As mentioned earlier she has valvular heart disease with severe mitral regurgitation stenosis. The diuretics have been cut down to 40 g IV Lasix every 12 hours. The net fluid balance is -2 L for yesterday. No fever. No chills. White cell count is down to 12.6. On 05/15/2018, patient is being seen in follow-up. He remains on a mechanical ventilator. Still on the same vent setting within assist-control mode at the rate of 26 with an FiO2 of 50% with a tidal volume of 400 and a PEEP of 5. The blood gas showed a pH of 7.45 with a pCO2 of 51 and pO2 of 91. No major improvement of the chest x-ray finding and the patient continues to have significant amount of bilateral airspace disease and bilateral pleural effusion more so on the right. The patient is in a controlled rhythm with atrial fibrillation. The patient is diuresing gently with IV Lasix. Unable to do aggressively diurese this patient because of evolving hypotension. The patient has severe mitral stenosis and approximately 2 fibrillation. The patient is also on broad-spectrum antibiotic coverage. She was given a sedation holiday and this point is breathing trial which she was able to tolerate for quite some time and following that she became short of breath and tachycardic and tachypneic and based on that the child was discontinued and the patient was not extubated. She is in a negative fluid balance. The net fluid balance for yesterday was -1.6 L. We are still diuresing this patient and she has a good urine output. She is afebrile. She is tolerating her tube feeds. She is very easily arousable and currently she is sedated with Diprivan. Overall no major changes and conditions compared to yesterday. I'm going to proceed with a CAT scan of the chest to characterized the pulmonary abnormalities. At the same time the patient was started on anticoagulation with warfarin. Objective - Vital Signs Vital signs: Vital Signs Temp 98.8 F 05/15/18 08:00 Pulse 96 05/15/18 09:30 Resp 24 05/15/18 09:30 BP 116/59 05/15/18 09:30 Pulse Ox 93 L 05/15/18 09:30 Intake & Output 05/14/18 05/15/18 05/15/18 18:59 06:59 18:59 Intake Total 7827.449 7830.355 195.0 Output Total 1900 735 755 Balance -867.271 522.355 -560.0 Weight 112.9 kg Intake: IV 135.0 140.0 55.0 Piperacillin-Tazobactam 3 25.0 50.0 25.0 .375 gm In Dextrose/Water 1 50ml.bag @ 12.5 mls/hr IVPB Q8H NIRANJAN Rx#: [id number] Sodium Chloride 0.9% 1, 110 90 30 000 ml @ 10 mls/hr IV . Q24H NIRANJAN Rx#:[id number] Intake, IV Titration 392.729 557.355 Amount Heparin Sod,Pork in 0.45% 152.797 347.203 NaCl 25,000 unit In 0.45 % NaCl 1 500ml.bag @ 8.9 UNITS/KG/HR 19.93 mls/hr IV .Q24H NIRANJAN Rx#: [id number] Propofol 1,000 mg In 239.932 210.152 Empty Bag 1 bag @ Titrate IV .Q0M NIRANJAN Rx#: [id number] Tube Feeding 455 560 140 Other 50 Output: Urine 1900 735 755 Other: Voiding Method Indwelling Catheter Indwelling Catheter Indwelling Catheter ABP, PAP, CO, CI - Last Documented Arterial Blood Pressure 24 - Exam Patient currently intubated on mechanical ventilator, comfortable on propofol. Orogastric and orotracheal tube are both in place. Head exam was generally normal. There was no scleral icterus or corneal arcus. Mucous membranes were moist. Neck is short and supple and there is mild JVDs no goiter or neck masses appreciated. Orogastric and orotracheal tube are both in place and the patient has a left subclavian triple-lumen catheter in place. Lungs sounds are diminished bilaterally along with scattered rhonchi and scattered wheezes heard throughout the lung hillman bilaterally and crackles in the lung bases Heart sounds are irregular positive S1-S2 and there is no significant murmurs appreciated.Cardiac exam revealed the PMI to be normally situated and sized. The rhythm was regular and no extrasystoles were noted during several minutes of auscultation. The first and second heart sounds were normal and physiologic splitting of the second heart sound was noted. There were no murmurs, rubs, clicks, or gallops. Abdominal exam revealed normal bowel sounds. The abdomen was soft, non-tender, and without masses, organomegaly, or appreciable enlargement of the abdominal aorta. Overall the patient is obese and the patient's organs cannot be accurately palpated. No direct tenderness or rebound tensile guarding Examination of the extremities revealed easily palpable radial, femoral and pedal pulses. There was no cyanosis, clubbing or edema. Examination of the skin revealed no evidence of significant rashes, suspicious appearing nevi or other concerning lesions. Neurologically the patient is sedated and calm and comfortable most for extremities to painful stimulation - Labs CBC & Chem 7: 05/15/18 06:20 05/15/18 06:20 Labs: Abnormal Lab Results - Last 24 Hours (Table) 05/14/18 05/14/18 05/14/18 Range/Units 12:07 13:07 14:44 WBC (3.8-10.6) k/uL Neutrophils # (1.3-7.7) k/uL Lymphocytes # (1.0-4.8) k/uL INR (<1.2) APTT 30.2 H (22.0-30.0) sec ABG pH 7.48 H (7.35-7.45) ABG pCO2 48 H (35-45) mmHg ABG pO2 78 L (83-108) mmHg ABG HCO3 36 H (21-25) mmol/L ABG Total CO2 37 H (19-24) mmol/L Carbon Dioxide (22-30) mmol/L BUN (7-17) mg/dL Glucose (74-99) mg/dL POC Glucose (mg/dL) 158 H (75-99) mg/dL 05/14/18 05/14/18 05/14/18 Range/Units 18:15 23:00 23:48 WBC (3.8-10.6) k/uL Neutrophils # (1.3-7.7) k/uL Lymphocytes # (1.0-4.8) k/uL INR (<1.2) APTT 42.6 H (22.0-30.0) sec ABG pH (7.35-7.45) ABG pCO2 (35-45) mmHg ABG pO2 (83-108) mmHg ABG HCO3 (21-25) mmol/L ABG Total CO2 (19-24) mmol/L Carbon Dioxide (22-30) mmol/L BUN (7-17) mg/dL Glucose (74-99) mg/dL POC Glucose (mg/dL) 151 H 144 H (75-99) mg/dL 05/15/18 05/15/18 05/15/18 Range/Units 04:33 06:20 06:20 WBC 10.8 H (3.8-10.6) k/uL Neutrophils # 9.2 H (1.3-7.7) k/uL Lymphocytes # 0.9 L (1.0-4.8) k/uL INR (<1.2) APTT (22.0-30.0) sec ABG pH (7.35-7.45) ABG pCO2 51 H (35-45) mmHg ABG pO2 (83-108) mmHg ABG HCO3 35 H (21-25) mmol/L ABG Total CO2 37 H (19-24) mmol/L Carbon Dioxide 35 H (22-30) mmol/L BUN 48 H (7-17) mg/dL Glucose 167 H (74-99) mg/dL POC Glucose (mg/dL) (75-99) mg/dL 05/15/18 05/15/18 05/15/18 Range/Units 06:20 06:20 06:38 WBC (3.8-10.6) k/uL Neutrophils # (1.3-7.7) k/uL Lymphocytes # (1.0-4.8) k/uL INR 1.3 H (<1.2) APTT 59.2 H (22.0-30.0) sec ABG pH (7.35-7.45) ABG pCO2 (35-45) mmHg ABG pO2 (83-108) mmHg ABG HCO3 (21-25) mmol/L ABG Total CO2 (19-24) mmol/L Carbon Dioxide (22-30) mmol/L BUN (7-17) mg/dL Glucose (74-99) mg/dL POC Glucose (mg/dL) 175 H (75-99) mg/dL Microbiology - Last 24 Hours (Table) 05/11/18 15:56 Blood Culture - Preliminary Blood No Growth after 72 hours 05/11/18 21:09 Gram Stain - Final Sputum Sputum Culture - Final Assessment and Plan Plan: Assessment 1 acute hypoxic respiratory failure with bilateral lower lobe pneumonia and possibly component of CHF. The patient presented emergency department with acute respiratory arrest, intubated and placed on a mechanical ventilator On 05/12/2018 the patient remains intubated on a mechanical ventilator. There is improvement in oxygenation and FiO2 has been drop down to 60%. There is also further weaning the FiO2 down knowing that the patient's pulse ox and the pO2 is above 100. Meanwhile, the sputum cultures still pending. The patient is on a broad-spectrum antibiotic coverage with a combination of Zosyn and Levaquin. The patient is still sedated on a mechanical ventilator, intubated. On 05/13/2018, the patient remains on a mechanical ventilator. The patient is oxygenating and ventilating well. She is on the same antibiotic coverage. There is persistent but the pulmonary consolidation and infiltrates most on the right. The patient is on Zosyn and Levaquin the patient will be started on diuretics should there be a component of interstitial/pulmonary edema in association with his underlying pneumonia. Cultures of been all negative thus far. The patient remains hemodynamically stable. On 05/14/2018, the patient is still on a mechanical ventilator. There is some improvement in the chest x-ray findings and the patient is not ready for extubation yet. Hemodynamically stable for now. Overnight the patient had issues with SVT and currently she is in atrial fibrillation with a controlled rate. She is being diuresed gently. She is also being covered with broad- spectrum antibiotics regarding bilateral pneumonia. The sputum culture is negative for now. On 05/15/2018 I'm not seeing any major change in the patient's chest x-ray finding. She still has bilateral airspace disease probably combination of pneumonia fluids. The patient initially suspected to have pneumonia. Subsequently she was found to have severe mitral stenosis and regurgitation which probably is contributing to her respiratory failure. She has severe valvular heart disease and please refer to the echocardiogram results. She remains on broad-spectrum antibiotics. CAT scan of the chest is to follow from today. 2 bilateral lower lobe pneumonia with airspace disease and consolidations. Rule out aspiration pneumonia. Rule out community-acquired. Cultures of been negative thus far. 3 acute cardiac pulmonary arrest with brief loss in progress where the patient received CPR and received a dose of epinephrine with return of spontaneous circulation. Currently on no pressors. No signs of any hypoxic encephalopathy and the patient was given a brief sedation holiday and she was able to follow simple commands without any major difficulties 4 lactic acidosis secondary to above, improving and recovered 5 leukocytosis secondary to above, improving, and recovered 6 morbid obesity with a BMI of 43.4 7 obstructive sleep apnea 8 severe persistent bronchial asthma 9 history of right hemidiaphragmatic plication for unilateral paralysis 10 moderate to severe severe aortic stenosis and mitral stenosis, with a preserved LV function as evident on the echocardiogram 11 history of TIA 12 nephrolithiasis 13 gouty arthritis 14 hypothyroidism 13 hypertension 16 hyperlipidemia 17 history of atrial fibrillation on Rythmol and her current rhythm is back in atrial fibrillation with a controlled rate. 18 acid reflux 19 gout 20 degenerative arthritis 21 episodes of SVT, cardioverted Plan Not ready for extubation yet. Chest x-ray findings are still unchanged compared to yesterday. She fell this point is breathing trial yesterday and no extubation is attempted for today. We'll proceed with a CAT scan of the chest. Continue diuretics. Continue antibiotics. We'll continue to follow and make consider bronchoscopy specially if the CAT scan findings indicate pneumonia over CHF. In any rate, I think her respiratory failure is multifactorial probably combination of CHF/valvular heart disease and pneumonia. Continue supportive care. We'll continue to follow. Critically care evaluation more than 40 minutes. Time with Patient: Greater than 30
--- NOTE | 2018-05-15 11:27 | CT ---
EXAMINATION TYPE: CT chest w con DATE OF EXAM: 05/15/2018 COMPARISON: Previous study dated 01/18/2012 HISTORY: Pneumonia, possible fluid overload and mass CT DLP: 1057.90 mGycm Automated exposure control for dose reduction was used. CONTRAST: CT scan of the chest is performed with IV Contrast, patient injected with 100 mL of Isovue 300. FINDINGS: The patient is intubated. There is an NG tube in place. Its tip is in the stomach. There are bilateral effusions. There is atelectatic change present in the lung bases bilaterally. There is no significant axillary, internal mammary, mediastinal or hilar adenopathy. No large pulmona ry emboli are seen. The root of the aorta is mildly prominent measuring 3.7 cm. Proximal arch is aneurysmal measuring 3.1 cm. The remainder the aorta is normal in caliber. There is moderate atheromatous calcification of th e aorta. The heart is mildly enlarged. There is no pericardial fluid. Visualized portions of the upper abdomen are unremarkable. There is hypertrophic spondylosis within the spine. IMPRESSION: 1. BILATERAL PLEURAL EFFUSIONS WITH ASSOCIATED ATELECTASIS. 2. MILD ANEURYSMAL DILATATION OF THE ASCENDING THORACIC AORTA. 3. MILD CARDIOMEGALY. 4. DEGENERATIVE CHANGES WITHIN THE SPINE.
[2018-05-15] MEDS: SODIUM CHLORIDE 0.9% 1,000 ML IV SCH (11:37)
[2018-05-15 11:45] LABS: Glucose,Whole Blood 151 mg/dL (75-99)
--- NOTE | 2018-05-15 13:41 | P.PN ---
Subjective Progress Note Date: 05/15/18 Principal diagnosis: Acute hypoxic respiratory failure secondary to pneumonia and CHF Interval history:Patient is on 73-year-old female with a known history of obstructive sleep apnea on biPAP, Hypothyroidism, valvular heart disease with aortic stenosis and congestive heart failure and multiple other medical problems including morbid obesity presented to hospital with worsening shortness of breath. Patient was at [facility] studies where she had progressive shortness of breath. Patient's pulse ox was low 70s upon EMS arrival. Patient was placed on 100% nonrebreather but the patient remained hypoxic. Patient was placed on BiPAP. And was transferred to ER. Patient was given breathing treatments while in the ER without much relief. Patient was subsequently intubated due to acute hypoxic respiratory failure. Currently patient is intubated and is in the medical intensive care unit. Chest x-ray showed no evidence of pneumothorax. Bilateral air space disease was present in the perihilar region in the lower lobes bilaterally right more than left. WC count was 22 on admission. Lactic acid 5.9 on admission ABG showed pH of 7.21 pCO2 63 and PaO2 88 with 100% FiO2. Patient is currently on Solu-Medrol 60 g every 6 hourly along with duo nebs and antibiotics in the form of levofloxacin and Zosyn. Cardiology and pulmonary is following. Chest x-ray this morning showed mildly improved aeration of the right lung otherwise stable 2-D echocardiogram showed ejection fraction 50-55% with severe severe mitral stenosis and severe aortic stenosis. Review of Systems Patient is currently intubated and sedated. Complete review of systems could not be apparent from the patient 05/13/2018 remains vent dependent, FiO2 50%/+5 of PEEP. Maintained on DIprovan. Telemetry sinus rhythm. Diuresing well on Lasix IV push with 24- hour I&O reflecting a negative fluid balance. Chest x-ray stable, persistent scattered infiltrates to bilateral lungs greatest in the right lung, small bilateral pleural effusions. Maintained on Zosyn and Levaquin .T-max 99.1, leukocytosis improving, sputum culture pending, preliminary blood cultures negative. Tolerating tube feeds with minimal to no residuals. IV fluids PIVL' D. 05/14/2018 Patient is currently vent dependent with assist control. Patient was tried for weaning today but patient was agitated and was sedated again. Patient is being continued on IV Lasix and Cardizem has been changed to oral. Patient went into atrial fibrillation with rapid ventricular rate last night and was started on Cardizem.. Pulmonary and cardiology is following. Chest x-ray showed slight improvement. 05/15/2018 Patient is currently on mechanical ventilator. Currently heart rate is controlled with Cardizem oral. Patient is in atrial fibrillation but heart rate is controlled. CT chest showed bilateral pleural effusion and cardiomegaly. Patient is being continued on Lasix 40 mg daily due to marginal blood pressure and severe underlying valvular heart disease. Cardiology and pulmonary is following. Active Medications Generic Name Dose Route Start Last Admin Trade Name Freq PRN Reason Stop Dose Admin Albuterol/Ipratropium 3 ml 05/11/18 16:00 05/15/18 13:08 Duoneb 0.5 Mg-3 Mg/3 Ml Soln INHALATION 3 ml RT-Q4H NIRANJAN Administration Albuterol/Ipratropium 3 ml 05/11/18 15:31 Duoneb 0.5 Mg-3 Mg/3 Ml Soln INHALATION RT-Q2H PRN Shortness Of Breath Or Wheezing Chlorhexidine Gluconate 15 ml 05/11/18 21:00 05/15/18 08:15 Peridex MUCOUS MEM 15 ml BID NIRANJAN Administration Diltiazem HCl 30 mg 05/14/18 09:00 05/15/18 08:15 Cardizem Oral PO 30 mg TID NIRANJAN Administration Furosemide 40 mg 05/15/18 09:00 05/15/18 08:16 Lasix IV 40 mg DAILY NIRANJAN Administration Heparin Sodium (Porcine) 0 unit 05/14/18 07:31 05/15/18 00:22 Heparin IV 2,800 unit PER PROTOCOL PRN Administration Low PTT Protocol Hydromorphone HCl 0.5 mg 05/13/18 10:58 05/13/18 17:41 Dilaudid IVP 0.5 mg Q6HR PRN Administration Pain Propofol 1,000 mg/ IV Solution 100 mls @ 0 mls/hr 05/11/18 15:45 05/15/18 13: 29 IV 35 mcg/kg/min .Q0M NIRANJAN 23.7 mls/hr Administration Protocol Titrate Levofloxacin 750 mg/ IV 150 mls @ 100 mls/hr 05/12/18 18:00 05/14/18 17:55 Solution IVPB 100 mls/hr Q24H NIRANJAN Administration Piperacillin/Tazobactam/ 50 mls @ 12.5 mls/hr 05/12/18 04:00 05/15/18 11:36 Dextrose 3.375 gm/ IV Solution IVPB 12.5 mls/hr Q8H NIRANJAN Administration Norepinephrine Bitartrate 16 mg in 250 mls @ 0 mls/hr 05/11/18 23:15 Levophed-0.9% Nacl 16 Mg/250ml Pmx IV .Q0M [facility] Protocol Titrate Sodium Chloride 1,000 mls @ 10 mls/hr 05/12/18 11:00 05/15/18 11:37 Saline 0.9% IV Not Given .Q24H NIRANJAN Heparin Sodium/Sodium Chloride 500 mls @ 19.93 mls/hr 05/14/18 08:00 05:20 25,000 unit/ Sodium Chloride IV 13.9 units/kg/hr .Q24H NIRANJAN 31.13 mls/hr Administration Protocol 8.9 UNITS/KG/HR Insulin Aspart 0 unit 05/12/18 12:45 05/15/18 11:49 Novolog SQ 2 unit Q6HR NIRANJAN Administration Protocol Levothyroxine Sodium 50 mcg 05/13/18 06:30 05/15/18 06:42 Synthroid PO 50 mcg DAILY@0630 [facility] Administration Lorazepam 2 mg 05/11/18 15:31 Ativan IV Q1HR PRN Severe Agitation Lorazepam 1 mg 05/11/18 15:31 05/13/18 03:42 Ativan IV 1 mg Q1HR PRN Administration Mild Agitation Methylprednisolone Sodium Succinate 60 mg 05/11/18 18:00 05/15/18 11:36 Solu-Medrol IV 60 mg Q6HR NIRANJAN Administration Miscellaneous Information 1 each 05/11/18 17:24 Pneumonia Protocol Utilized PO ONCE PRN Per Protocol Miscellaneous Information 1 each 05/12/18 06:02 Magnesium Per Protocol MISCELLANE DAILY PRN Per Protocol Protocol Miscellaneous Information 1 each 05/15/18 07:55 Rx Info: Iv Contrast Was Given MISCELLANE 05/17/18 07:56 DAILY PRN Per Protocol Miscellaneous Information 1 each 05/15/18 08:12 Potassium Per Protocol MISCELLANE DAILY PRN Per Protocol Protocol Naloxone HCl 0.2 mg 07/11/18 17:21 Narcan IV Q2M PRN Opioid Reversal Pantoprazole Sodium 40 mg 05/11/18 17:00 05/15/18 08:16 Protonix IVP 40 mg DAILY NIRANJAN Administration Warfarin Sodium 4 mg 05/15/18 18:00 Coumadin PO 05/15/18 18:01 ONCE@1800 ONE Objective - Vital Signs Vital signs: Vital Signs Temp 98.6 F 05/15/18 12:00 Pulse 80 05/15/18 13:22 Resp 21 05/15/18 13:00 BP 113/64 05/15/18 13:00 Pulse Ox 91 L 05/15/18 13:00 Intake & Output 05/14/18 05/15/18 05/15/18 18:59 06:59 18:59 Intake Total 5353.861 0282.355 612.5 Output Total 2929 183 1696 Balance -867.271 522.355 -967.5 Weight 112.9 kg Intake: IV 135.0 140.0 132.5 Piperacillin-Tazobactam 3 25.0 50.0 62.5 .375 gm In Dextrose/Water 1 50ml.bag @ 12.5 mls/hr IVPB Q8H NIRANJAN Rx#: [id number] Sodium Chloride 0.9% 1, 110 90 70 000 ml @ 10 mls/hr IV . Q24H NIRANJAN Rx#:[id number] Intake, IV Titration 392.729 557.355 100 Amount Heparin Sod,Pork in 0.45% 152.797 347.203 NaCl 25,000 unit In 0.45 % NaCl 1 500ml.bag @ 8.9 UNITS/KG/HR 19.93 mls/hr IV .Q24H NIRANJAN Rx#: [id number] Propofol 1,000 mg In 239.932 210.152 100 Empty Bag 1 bag @ Titrate IV .Q0M NIRANJAN Rx#: [id number] Tube Feeding 455 560 350 Other 50 30 Output: Urine 7709 547 7699 Other: Voiding Method Indwelling Catheter Indwelling Catheter Indwelling Catheter ABP, PAP, CO, CI - Last Documented Arterial Blood Pressure 24/24 - Exam - Exam Patient is lying in the bed comfortably, no acute distress, sedated and intubated.. HEENT: Normocephalic. Neck is supple. Pupils reactive. Nostrils clear. Oral cavity is moist. Ears reveal no drainage. Neck reveals no JVD, carotid bruits, or thyromegaly. CHEST EXAMINATION: Trachea is central. Symmetrical expansion. Endotracheal tube in place. Fine bibasilar crackles with Scattered rhonchi and expiratory wheezes, Prolonged expiration. CARDIAC: Normal S1, S2 with no gallops. Systolic murmur ABDOMEN: Soft. Bowel sounds normal. No organomegaly. No abdominal bruits. Extremities: reveal no edema. No clubbing or cyanosis Neurologically patient is currently sedated and intubated. No focal deficits noted Skin: No rash or skin lesions. Musculoskeletal: No joint swelling or deformity. - Labs CBC & Chem 7: 05/15/18 06:20 05/15/18 06:20 Labs: Abnormal Lab Results - Last 24 Hours (Table) 05/14/18 05/14/18 05/14/18 Range/Units 14:44 18:15 23:00 WBC (3.8-10.6) k/uL Neutrophils # (1.3-7.7) k/uL Lymphocytes # (1.0-4.8) k/uL INR (<1.2) APTT 30.2 H 42.6 H (22.0-30.0) sec ABG pCO2 (35-45) mmHg ABG HCO3 (21-25) mmol/L ABG Total CO2 (19-24) mmol/L Carbon Dioxide (22-30) mmol/L BUN (7-17) mg/dL Glucose (74-99) mg/dL POC Glucose (mg/dL) 151 H (75-99) mg/dL 05/14/18 05/15/18 05/15/18 Range/Units 23:48 04:33 06:20 WBC (3.8-10.6) k/uL Neutrophils # (1.3-7.7) k/uL Lymphocytes # (1.0-4.8) k/uL INR (<1.2) APTT (22.0-30.0) sec ABG pCO2 51 H (35-45) mmHg ABG HCO3 35 H (21-25) mmol/L ABG Total CO2 37 H (19-24) mmol/L Carbon Dioxide 35 H (22-30) mmol/L BUN 48 H (7-17) mg/dL Glucose 167 H (74-99) mg/dL POC Glucose (mg/dL) 144 H (75-99) mg/dL 05/15/18 05/15/18 05/15/18 Range/Units 06:20 06:20 06:20 WBC 10.8 H (3.8-10.6) k/uL Neutrophils # 9.2 H (1.3-7.7) k/uL Lymphocytes # 0.9 L (1.0-4.8) k/uL INR 1.3 H (<1.2) APTT 59.2 H (22.0-30.0) sec ABG pCO2 (35-45) mmHg ABG HCO3 (21-25) mmol/L ABG Total CO2 (19-24) mmol/L Carbon Dioxide (22-30) mmol/L BUN (7-17) mg/dL Glucose (74-99) mg/dL POC Glucose (mg/dL) (75-99) mg/dL 05/15/18 05/15/18 Range/Units 06:38 11:43 WBC (3.8-10.6) k/uL Neutrophils # (1.3-7.7) k/uL Lymphocytes # (1.0-4.8) k/uL INR (<1.2) APTT (22.0-30.0) sec ABG pCO2 (35-45) mmHg ABG HCO3 (21-25) mmol/L ABG Total CO2 (19-24) mmol/L Carbon Dioxide (22-30) mmol/L BUN (7-17) mg/dL Glucose (74-99) mg/dL POC Glucose (mg/dL) 175 H 151 H (75-99) mg/dL Microbiology - Last 24 Hours (Table) 05/11/18 15:56 Blood Culture - Preliminary Blood No Growth after 72 hours 05/11/18 21:09 Gram Stain - Final Sputum Sputum Culture - Final Assessment and Plan Assessment: Acute hypoxic respiratory failure. Multifactorial secondary to pneumonia and CHF and COPD. Currently patient is intubated. Bilateral lower lobe pneumonia. Right greater than left Acute cardio pulmonary arrest with brief loss of pulse status post CPR and a dose of epinephrine with return of spontaneous circulation. Atrial fibrillation with rapid ventricular rate. New-onset. Off Cardizem drip. Lactic acidosis 5.9 on admission improving Sepsis secondary to pneumonia Obstructive sleep apnea on BiPAP at home Morbid obesity with BMI 44.9 with possible underlying obesity hypoventilation Acute on chronic CHF with systolic dysfunction as well as valvular heart disease History of right hemidiaphragmatic plication for unilateral paralysis History of TIA Nephrolithiasis Osteoarthritis Hypothyroidism with low free T4 level and elevated TSH. Uncontrolled History of atrial fibrillation. Paroxysmal. Currently in sinus rhythm on Rythmol GERD Gout Plan: Patient will be continued on mechanical ventilation. Pulmonary and cardiology is following. Current with IV steroids, antibiotics, breathing treatments and IV Lasix 40 mg daily. Continue with GI DVT prophylaxis and follow up closely. Continue with home medications and further recommendations based on the clinical course. Prognosis is guarded with multiple medical problems and comorbid conditions. Time with Patient: Greater than 30
[2018-05-15] MEDS: HYDROmorphone 0.5 MG/0.5 ML SYRINGE IVP PRN ×2 (15:44→23:26)
[2018-05-15] MEDS: LEVOFLOXACIN 750MG-D5W PMX 750 MG in DEXTROSE/WATER 1 150ML.BAG IVPB SCH (17:30)
[2018-05-15 17:36] LABS: Glucose,Whole Blood 141 mg/dL (75-99)
[2018-05-15] MEDS ORDERED: WARFARIN 2 MG TAB PO ONE (18:00)
[2018-05-15 23:23] LABS: Glucose,Whole Blood 137 mg/dL (75-99)
[2018-05-16] MEDS: PROPOFOL 1,000 MG in EMPTY BAG 1 BAG IV SCH ×2 (03:03→13:42)
[2018-05-16] MEDS: IPRATROPIUM-ALBUTEROL 3 ML NEB INHALATION SCH ×5 (03:11→19:46)
[2018-05-16] MEDS: PIPERACILLIN-TAZOBACTAM 3.375 GM in DEXTROSE/WATER 1 50ML.BAG IVPB SCH ×3 (03:48→20:34)
[2018-05-16 04:46] LABS: ABG Base Excess 14.8 mmol/L; ABG HCO3 38 mmol/L (21-25); ABG Oxygen Saturation 96.1 % (94-97); ABG PCO2 51 mmHg (35-45); ABG PH 7.48 (7.35-7.45); ABG PO2 78 mmHg (83-108); ABG TCO2 40 mmol/L (19-24)
[2018-05-16 05:05] LABS: Glucose,Whole Blood 170 mg/dL (75-99)
[2018-05-16 05:14] LABS: Basophils % (A) 0 %; Eosinophils % (A) 0 %; HCT 37.3 % (34.0-46.0); HGB 11.7 gm/dL (11.4-16.0); Hypochromasia Slight; Lymphocytes % (A) 8 %; MCH 28.1 pg (25.0-35.0); MCHC 31.3 g/dL (31.0-37.0); MCV 89.5 fL (80.0-100.0); Mean Platelet Volume 7.7; Monocytes # (A) 0.7 k/uL (0-1.0); Monocytes % (A) 5 %; Neutrophils # (A) 10.6 k/uL (1.3-7.7); Neutrophils % (A) 85 %; Platelet Count 230 k/uL (150-450); RBC 4.17 m/uL (3.80-5.40); RDW 14.2 % (11.5-15.5); WBC 12.5 k/uL (3.8-10.6)
[2018-05-16 05:21] LABS: INR 1.2 (<1.2); Partial Thromboplastin Time 46.9 sec (22.0-30.0); Prothrombin Time 11.8 sec (9.0-12.0)
[2018-05-16] MEDS: methylPREDNISolone SOD SUCCI 125 MG/2 ML VIAL IV SCH ×4 (06:24→23:16)
[2018-05-16] MEDS: INSULIN ASPART 100 UNIT/ML 1 ML 10 ML VIAL SQ SCH ×4 (06:25→23:18)
[2018-05-16] MEDS: LEVOTHYROXINE 50 MCG TAB PO SCH (06:25)
[2018-05-16 07:04] LABS: Anion Gap 7 mmol/L; Blood Urea Nitrogen 53 mg/dL (7-17); Calcium 8.4 mg/dL (8.4-10.2); Carbon Dioxide 36 mmol/L (22-30); Chloride 100 mmol/L (98-107); Glucose 156 mg/dL (74-99); Magnesium 2.4 mg/dL (1.6-2.3); Potassium 4.1 mmol/L (3.5-5.1); Sodium 143 mmol/L (137-145)
--- NOTE | 2018-05-16 07:58 | XR ---
EXAMINATION TYPE: XR chest 1V portable DATE OF EXAM: 05/16/2018 COMPARISON: 05/15/[address] chest HISTORY: Ventilatory dependent respiratory failure. Endotracheal tube placement. TECHNIQUE: Single frontal view of the chest is obtained. FINDINGS: There is a moderately right pleural effusion and small left pleural effusion both blunting the costophrenic angles and obscuring the hemidiaphragms. There is obscuration of the retrocardiac a irspace and mild pulmonary vascular congestion. Cardiomediastinal silhouette is obscured but stable a nd appears overall enlarged. Endotracheal tube, left-sided subclavian central venous catheter, and en teric tube are stable in position. Moderate multilevel degenerative changes of the thoracic spine are seen. IMPRESSION: Stable moderate pleural effusion, small left pleural effusion and associated bibasilar a irspace disease with cardiomegaly and mild pulmonary vascular congestion likely on the basis of decom pensated congestive heart failure.
--- NOTE | 2018-05-16 08:21 | P.PN ---
Subjective Progress Note Date: 05/16/18 Principal diagnosis: Acute hypoxic respiratory failure This is a 77-year-old female patient who was admitted to the intensive care unit with cardiopulmonary arrest. Currently the patient is intubated and she is on ventilator. The patient was in her usual state of health until yesterday when she was at the [facility] and she started experiencing shortness of breath. She didn't go home and she did to back-to- back breathing treatment without any improvement in her symptoms. At that point the patient called her daughter came in and found her mother in respiratory distress where at that point EMS was called and the patient was hypoxic where she was brought to the emergency room. In the ER the patient did have cardiopulmonary arrest with PDA and she received 2 epinephrine and she was intubated at that point and she was brought to the intensive care unit. Currently the patient is intubated unit nit. Currently the patient is intubated but remain hemodynamically stable and she is not on any vasopressors. The patient does have history of obstructive sleep apnea and she uses CPAP machine. She is obese. The side that interim of cardiac history she does have history of mild nonobstructive coronary artery disease based on heart catheterization was performed in 2013. The patient underwent an echocardiogram bedside today and that revealed normal left ventricle systolic function with hypertensive heart disease and evidence off severe mitral stenosis with a mean gradient across the mitral valve 20 mmHg as well as moderate to severe aortic stenosis with a mean gradient across aortic valve of 30 mmHg. The chest x-ray showed what it seems to be possible bilateral pneumonia with possible component of congestive heart failure. The BNP came in to be around 1000. The EKG showed sinus rhythm with sinus tachycardia and nonspecific changes in the lateral leads. The first set of troponin came in to be normal and we'll obtain 2 more sets of troponin. The lactic acid is elevated. On follow-up with the patient today, she is waking up. Overall she is doing better. She is not on any vasopressors. She continues to be in atrial fibrillation with uncontrolled heart rate. Because of that I would increase the dose of Cardizem to 60 mg by mouth 3 times a day. The blood pressure seems to be within normal limits. She is also on IV heparin which we will continue and INR today is 1.2 and because of that I would give the patient 4 mg of Coumadin today and continue monitoring the INR in the morning tomorrow. Also the chest x-ray continues to show findings consistent with CHF and pleural effusion. I'm going to increase the dose of Lasix IV to twice a day. Objective - Vital Signs Vital signs: Vital Signs Temp 98.5 F 05/16/18 00:00 Pulse 92 05/16/18 07:32 Resp 23 05/16/18 07:00 BP 112/53 05/16/18 07:00 Pulse Ox 96 05/16/18 07:19 Intake & Output 05/15/18 05/16/18 05/16/18 18:59 06:59 18:59 Intake Total 4090.715 2574.947 Output Total 1865 695 Balance -733.837 828.947 Weight 113 kg Intake: IV 332.5 182.5 Levofloxacin 750Mg-D5w 150 Pmx 750 mg In Dextrose/ Water 1 150ml.bag @ 100 mls/hr IVPB Q24H NIRANJAN Rx#: [id number] Piperacillin-Tazobactam 3 62.5 112.5 .375 gm In Dextrose/Water 1 50ml.bag @ 12.5 mls/hr IVPB Q8H NIRANJAN Rx#: [id number] Sodium Chloride 0.9% 1, 120 70 000 ml @ 10 mls/hr IV . Q24H NIRANJAN Rx#:[id number] Intake, IV Titration 198.663 691.447 Amount Heparin Sod,Pork in 0.45% 484.072 NaCl 25,000 unit In 0.45 % NaCl 1 500ml.bag @ 8.9 UNITS/KG/HR 19.93 mls/hr IV .Q24H NIRANJAN Rx#: [id number] Propofol 1,000 mg In 198.663 207.375 Empty Bag 1 bag @ Titrate IV .Q0M NIRANJAN Rx#: [id number] Tube Feeding 560 560 Other 40 90 Output: Urine 1865 695 Other: Voiding Method Indwelling Catheter Indwelling Catheter ABP, PAP, CO, CI - Last Documented Arterial Blood Pressure - Constitutional General appearance: Present: no acute distress - Respiratory Respiratory: bilateral: diminished - Cardiovascular Rhythm: irregularly irregular Heart sounds: normal: S1, S2 Abnormal Heart Sounds: Present: systolic murmur - Labs CBC & Chem 7: 05/16/18 04:52 05/16/18 04:52 Labs: Abnormal Lab Results - Last 24 Hours (Table) 05/15/18 05/15/18 05/15/18 Range/Units 06:20 11:43 17:35 WBC (3.8-10.6) k/uL Neutrophils # (1.3-7.7) k/uL INR 1.3 H (<1.2) APTT (22.0-30.0) sec ABG pH (7.35-7.45) ABG pCO2 (35-45) mmHg ABG pO2 (83-108) mmHg ABG HCO3 (21-25) mmol/L ABG Total CO2 (19-24) mmol/L Carbon Dioxide (22-30) mmol/L BUN (7-17) mg/dL Glucose (74-99) mg/dL POC Glucose (mg/dL) 151 H 141 H (75-99) mg/dL Magnesium (1.6-2.3) mg/dL 05/15/18 05/16/18 05/16/18 Range/Units 23:21 04:42 04:52 WBC 12.5 H (3.8-10.6) k/uL Neutrophils # 10.6 H (1.3-7.7) k/uL INR (<1.2) APTT (22.0-30.0) sec ABG pH 7.48 H (7.35-7.45) ABG pCO2 51 H (35-45) mmHg ABG pO2 78 L (83-108) mmHg ABG HCO3 38 H (21-25) mmol/L ABG Total CO2 40 H (19-24) mmol/L Carbon Dioxide (22-30) mmol/L BUN (7-17) mg/dL Glucose (74-99) mg/dL POC Glucose (mg/dL) 137 H (75-99) mg/dL Magnesium (1.6-2.3) mg/dL 05/16/18 05/16/18 05/16/18 Range/Units 04:52 04:52 05:04 WBC (3.8-10.6) k/uL Neutrophils # (1.3-7.7) k/uL INR 1.2 H (<1.2) APTT 46.9 H (22.0-30.0) sec ABG pH (7.35-7.45) ABG pCO2 (35-45) mmHg ABG pO2 (83-108) mmHg ABG HCO3 (21-25) mmol/L ABG Total CO2 (19-24) mmol/L Carbon Dioxide 36 H (22-30) mmol/L BUN 53 H (7-17) mg/dL Glucose 156 H (74-99) mg/dL POC Glucose (mg/dL) 170 H (75-99) mg/dL Magnesium 2.4 H (1.6-2.3) mg/dL Microbiology - Last 24 Hours (Table) 05/11/18 15:56 Blood Culture - Preliminary Blood No Growth after 96 hours Assessment and Plan Assessment: Assessment #1 acute respiratory failure #2 cardiopulmonary arrest #3 possible bilateral pneumonia #4 congestive heart failure secondary to systolic dysfunction and valvular heart disease #5 valvular heart disease with severe mitral stenosis and moderate to severe aortic stenosis #6 obstructive sleep apnea #7 morbid obesity Plan #1 currently the patient is intubated and she is on ventilator. Automobile [employer]er on the case #2 she is getting treated for bilateral pneumonia #3 increase the dose of Cardizem IV to twice a day #4 increase the dose of Cardizem by mouth #5 continue oral anticoagulation with Coumadin #6 follow-up with the patient.
[2018-05-16] MEDS: PANTOPRAZOLE 40 MG/10 ML VIAL IVP SCH (09:34)
[2018-05-16] MEDS: DILTIAZEM ORAL 60 MG TAB PO SCH ×3 (09:37→21:48)
[2018-05-16] MEDS: FUROSEMIDE 10 MG/ML 4 ML VIAL IV SCH ×2 (09:37→16:49)
--- NOTE | 2018-05-16 10:25 | P.PN ---
Subjective Progress Note Date: 05/16/18 Principal diagnosis: Acute hypoxic respiratory failure secondary to bilateral lower lobe pneumonia and congestive heart failure. A 77-year-old morbidly obese female patient with known history of obstructive sleep apnea maintained on BiPAP therapy on outpatient basis and addition to chronic bronchial asthma and significant limitation in exercise capacity secondary to her age body habitus and comorbidities, presented to the hospital because of an acute respiratory failure. I interviewed the daughter. Apparently the patient was at [employer] studies and she was getting progressively more short of breath. After arriving home she did [id number] breathing treatments without much relief. Ultimately she called her daughter who arrived to the scene and she saw that her mother was having more chest congestion, respirator distress, wheezing, and she was headed into respiratory failure. EMS was called to the scene. Upon arrival of EMS, the patient's pulse ox was in the low 70s pH was placed on on the percent nonrebreather facemask as she remained hypoxic and following that the patient was placed on BiPAP. The patient was moved to the emergency department. The patient was seen immediately after she arrived the ED. She was hypoxic, and she was cold and clammy and salmon color and cyanotic. As we were getting ready to intubate the patient, the patient lost pulse briefly and she became bradycardic. She went to the [facility]. She received a dose of epinephrine. She was started on CPR. Within 1 minute she recovered her pulse and the blood pressure. She was intubated and placed on a mechanical ventilator. She currently has a 7.[address] She is an assist-control mode of ventilation at the rate of 26, tidal volume of 400, FiO2 of 100% and a PEEP of 5. Immediately postintubation the blood pressure improved and she had a systolic above 200. She was started on propofol for sedation and her current systolic blood pressure in the 150s. A Poe catheter was inserted. The peak pressures in the 38-40 range. Static pressures around 32. The patient has significant bronchospasm and wheezing. A chest x-ray was done post intubation and post line placement and the chest x- ray showed no evidence of any pneumothorax. Bilateral air space disease was present in the perihilar regions in the lower lobes bilaterally right more than left. ET tube and NG tube were in good location. The patient also had a left subclavian triple-lumen catheter that was inserted without any complications. She was started on IV Zosyn knowing that the patient also briefly aspirated and vomited at the time of the intubation. Labs showed a white cell count of 22. The postintubation blood gas showed a pH of 7.21 with a pCO2 of 63 and pO2 of 88 and this blood gases on 100% FiO2. Initial lactic acid level was at 5.9 On today's evaluation of 05/12/2018 I'm seeing this patient for a follow-up. The patient remains intubated on a mechanical ventilator. Sedated with Diprivan at 30 mics per KG per minute. She is well sedated and she is synchronous with the mechanical ventilator. She is an assist-control mode of ventilation at the rate of 26 with a tidal volume of 400 and FiO2 of 60% with a PEEP of 5. The patient's chest x-ray from today is showing some mild improvement examination of the right midlung field. Otherwise the rest of the signs are all stable. ET tube is in a good location. The patient has consolidation of the right lung involving the right apex and the right lung base. There is also some perihilar pulmonary infiltrates bilaterally addition to some cardiomegaly. There is chronic elevation of the right hemidiaphragm. The blood gases from today showed a pH of 7.33 with a pCO2 of 47 and pO2 of 77 and it wasn't an FiO2 of 60%. The lactic acid level is down to 1.9 from 2.9 in addition. The patient was given briefly a sedation holiday and she was able to follow commands, simple commands and following that the patient was placed back on sedation. She did not require any pressors and the patient is maintaining home blood pressure. She was seen by cardiology today. Echocardiogram was done. The echo showed normal LV function with hypertensive heart disease and evidence of severe mitral stenosis with a mean gradient across the mitral valve of 20 mmHg as well as moderate to severe aortic stenosis with a mean gradient across the valve of 30 mmHg. The patient's cardiac rhythm is still sinus. She remains on broad-spectrum antibiotic coverage with a combination of Zosyn and Levaquin. The sputum cultures still negative for now. Blood cultures have been sent and the results are still negative for now. White cell count is elevated at 22.3. The patient was started on Lasix by cardiology 40 mg IV every 24 hours. She is also normal state rate of 40 mL an hour for now. On today's evaluation of 05/13/2018, the patient remains intubated on a mechanical ventilator. She is lightly sedated and the patient can easily aroused from propofol infusion. She remains on a mechanical ventilator the same vent setting. The blood gas from today, while on the 50% FiO2 showed a pH of 7.39 with a pCO2 of 40 and a pO2 of 81. White cell count is down to 17. The chest x-ray from today is showing persistent bilateral pulmonary infiltrates most on the right upper lobe and the right lower lobe. There is also small bilateral pleural effusion and cardiomegaly. ET tube remains in a good location. Cultures of been all negative thus far. The patient is afebrile and the patient is hemodynamically stable. Also, echocardiogram showed moderate to severe mitral stenosis and aortic valve stenosis and the patient was started on diuresis yesterday. I think we need to diurese this patient more aggressively over the next 24 hours. She'll feeds are running and the patient is tolerating her tube feeds without any major difficulties. Patient is producing adequate amount of urine output. Cardiac rhythm remains sinus. No other significant events over the past 24 hours. On 05/14/2089 seeing this patient for a follow-up. The patient remains intubated on a mechanical ventilator. She is on gentle sedation and she can easily aroused from her sedation and she can follow commands and answer questions appropriately. Her chest x-ray from today is showing some improvement in the aeration of the right lung. The patient has developed a consolidation and effusion the right lung base. The upper lobes are more clear. ET tube is in a good location. She remains on a mechanical ventilator. Assist-control mode of ventilation. She has a rate of 26, tidal volume of 400 , FiO2 is still at 60% with a PEEP of 5. Her blood gases from today showed a pH of 7.39 , pCO2 of 49 and pO2 of 81. I doubt the FiO2 down to 50%. I asked the nursing staff to stop the sedation completely and we checked her weaning parameters and the weaning parameters showed a NIF of -35 and vital Of 935 and the rapid shallow breathing index was less than 100. Based on that, the patient was given a spelled his breathing trial. She lasted for a total of 30 minutes. Following that she became tachycardic and cachectic. Blood gases obtained and the patient had a pH of 7.48 with a pCO2 of 48 and pO2 of 78. Nevertheless, based on ongoing shortness of breath, we decided not to extubate the patient knowing that she was not quite ready for extubation. Noted over the past 24 hours to monitor the patient has significant cardiac events. The patient went into an SVT. She was a rapid ventricular response. She had to be cardioverted. Subsequently she went into atrial fibrillation/flutter rhythm. Her rate is controlled for now. Nevertheless the patient is on Cardizem 30 mg by mouth 3 times a day. She was also placed on IV heparin by cardiology. As mentioned earlier she has valvular heart disease with severe mitral regurgitation stenosis. The diuretics have been cut down to 40 g IV Lasix every 12 hours. The net fluid balance is -2 L for yesterday. No fever. No chills. White cell count is down to 12.6. On 05/15/2018, patient is being seen in follow-up. He remains on a mechanical ventilator. Still on the same vent setting within assist-control mode at the rate of 26 with an FiO2 of 50% with a tidal volume of 400 and a PEEP of 5. The blood gas showed a pH of 7.45 with a pCO2 of 51 and pO2 of 91. No major improvement of the chest x-ray finding and the patient continues to have significant amount of bilateral airspace disease and bilateral pleural effusion more so on the right. The patient is in a controlled rhythm with atrial fibrillation. The patient is diuresing gently with IV Lasix. Unable to do aggressively diurese this patient because of evolving hypotension. The patient has severe mitral stenosis and approximately 2 fibrillation. The patient is also on broad-spectrum antibiotic coverage. She was given a sedation holiday and this point is breathing trial which she was able to tolerate for quite some time and following that she became short of breath and tachycardic and tachypneic and based on that the child was discontinued and the patient was not extubated. She is in a negative fluid balance. The net fluid balance for yesterday was -1.6 L. We are still diuresing this patient and she has a good urine output. She is afebrile. She is tolerating her tube feeds. She is very easily arousable and currently she is sedated with Diprivan. Overall no major changes and conditions compared to yesterday. I'm going to proceed with a CAT scan of the chest to characterized the pulmonary abnormalities. At the same time the patient was started on anticoagulation with warfarin. On 05/16/2018, patient was evaluated, and she remains on mechanical ventilation. Her ventilator settings are assist control rate of 26, tidal volume of 400, FiO2 of 50%, and PEEP of 5. ABG showed a pO2 of 78 pCO2 of 51 pH of 7.48. Patient is awake, responsive to all verbal commands, follows all instructions, hence I took her off propofol, and recommended a spontaneous breathing trial. Placed on pressure support of 10 with CPAP, however she only lasted about 20 minutes and she was noted to have increased respiratory rate, tachycardia, and she was developing a bit of respiratory distress. Hence the patient was switched back to assist control mode of mechanical ventilation. And I felt that she is not ready to be weaned. Ultrasound of the chest was done, there was evidence of less than 5 cm pocket of fluid on the right pleural space, hence I did not feel the patient would benefit much from thoracentesis, not to mention that is associated with thoracentesis considering the amount of fluid is small. All labs were reviewed, her renal profile seems to be relatively normal however her BUN is 53 creatinine is 0.70, more of a prerenal type of azothemia. CBC is relatively normal with minimal leukocytosis. Heparin is therapeutic for her atrial fibrillation. Hemodynamically, the patient is stable , and not requiring any norepinephrine at this point. Propofol is presently on hold. Nutrition is also address, and the patient is being fed with nasogastric tube/enteral feeding. Fluid balance noted over the last 24 hours to be about 90 mL positive. Hence the Lasix dose was increased to twice a day. Objective - Vital Signs Vital signs: Vital Signs Temp 98.5 F 05/16/18 00:00 Pulse 104 H 05/16/18 08:00 Resp 24 05/16/18 08:00 BP 126/71 05/16/18 08:00 Pulse Ox 94 L 05/16/18 08:00 Intake & Output 05/15/18 05/16/18 05/16/18 18:59 06:59 18:59 Intake Total 4988.735 6237.947 155 Output Total 1865 695 170 Balance -733.837 828.947 -15 Weight 113 kg Intake: IV 332.5 182.5 20 Levofloxacin 750Mg-D5w 150 Pmx 750 mg In Dextrose/ Water 1 150ml.bag @ 100 mls/hr IVPB Q24H NIRANJAN Rx#: [id number] Piperacillin-Tazobactam 3 62.5 112.5 .375 gm In Dextrose/Water 1 50ml.bag @ 12.5 mls/hr IVPB Q8H NIRANJAN Rx#: [id number] Sodium Chloride 0.9% 1, 120 70 20 000 ml @ 10 mls/hr IV . Q24H NIRANJAN Rx#:[id number] Intake, IV Titration 198.663 691.447 100 Amount Heparin Sod,Pork in 0.45% 484.072 NaCl 25,000 unit In 0.45 % NaCl 1 500ml.bag @ 8.9 UNITS/KG/HR 19.93 mls/hr IV .Q24H NIRANJAN Rx#: [id number] Propofol 1,000 mg In 198.663 207.375 100 Empty Bag 1 bag @ Titrate IV .Q0M NIRANJAN Rx#: [id number] Tube Feeding 560 560 35 Other 40 90 Output: Urine 1865 695 170 Other: Voiding Method Indwelling Catheter Indwelling Catheter Indwelling Catheter ABP, PAP, CO, CI - Last Documented Arterial Blood Pressure 24/24 - Exam Physical Exam: Revealed a 77-year-old female, obese, on mechanical ventilation, in no distress while on assist control mode of mechanical ventilation. Head: Atraumatic, normocephalic. Endotracheal tube and orogastric tube are noted to be intact. HEENT:[Neck is supple.] [No neck masses.] [No thyromegaly.] [No JVD.] PERRLA, EOMI, moist mucous membranes, no icterus was noted. Left sided subclavian triple-lumen catheter is noted to be in place. Chest: [Symmetrical expansion, diminished breath sounds at the bases especially at the left base, with crackles. No rhonchi, no wheezes.] Cardiac Exam: [Irregular irregular rhythm Normal S1 and S2, no S3 gallop, no murmur.] Abdomen: Obese, [Soft, nontender, no megaly, no rebound, no guarding, normal bowel sounds.] Extremities: [No clubbing, no edema, no cyanosis.] Neurological Exam: [No focal neurologic deficit.] Alert oriented 3, Psychiatric: Normal mood affect and mental status examination. Lymphatics: No lymphadenopathy. Skin: No rashes. Musculoskeletal: No limitations in range of motion. - Labs CBC & Chem 7: 05/16/18 04:52 05/16/18 04:52 Labs: Abnormal Lab Results - Last 24 Hours (Table) 05/15/18 05/15/18 05/15/18 Range/Units 11:43 17:35 23:21 WBC (3.8-10.6) k/uL Neutrophils # (1.3-7.7) k/uL INR (<1.2) APTT (22.0-30.0) sec ABG pH (7.35-7.45) ABG pCO2 (35-45) mmHg ABG pO2 (83-108) mmHg ABG HCO3 (21-25) mmol/L ABG Total CO2 (19-24) mmol/L Carbon Dioxide (22-30) mmol/L BUN (7-17) mg/dL Glucose (74-99) mg/dL POC Glucose (mg/dL) 151 H 141 H 137 H (75-99) mg/dL Magnesium (1.6-2.3) mg/dL 05/16/18 05/16/18 05/16/18 Range/Units 04:42 04:52 04:52 WBC 12.5 H (3.8-10.6) k/uL Neutrophils # 10.6 H (1.3-7.7) k/uL INR 1.2 H (<1.2) APTT 46.9 H (22.0-30.0) sec ABG pH 7.48 H (7.35-7.45) ABG pCO2 51 H (35-45) mmHg ABG pO2 78 L (83-108) mmHg ABG HCO3 38 H (21-25) mmol/L ABG Total CO2 40 H (19-24) mmol/L Carbon Dioxide (22-30) mmol/L BUN (7-17) mg/dL Glucose (74-99) mg/dL POC Glucose (mg/dL) (75-99) mg/dL Magnesium (1.6-2.3) mg/dL 05/16/18 05/16/18 Range/Units 04:52 05:04 WBC (3.8-10.6) k/uL Neutrophils # (1.3-7.7) k/uL INR (<1.2) APTT (22.0-30.0) sec ABG pH (7.35-7.45) ABG pCO2 (35-45) mmHg ABG pO2 (83-108) mmHg ABG HCO3 (21-25) mmol/L ABG Total CO2 (19-24) mmol/L Carbon Dioxide 36 H (22-30) mmol/L BUN 53 H (7-17) mg/dL Glucose 156 H (74-99) mg/dL POC Glucose (mg/dL) 170 H (75-99) mg/dL Magnesium 2.4 H (1.6-2.3) mg/dL Microbiology - Last 24 Hours (Table) 05/11/18 15:56 Blood Culture - Preliminary Blood No Growth after 96 hours Assessment and Plan Assessment: 1 acute hypoxic respiratory failure with bilateral lower lobe pneumonia and possibly component of diastolic CHF. The patient presented emergency department with acute respiratory arrest, intubated and placed on a mechanical ventilator On 05/12/2018 the patient remains intubated on a mechanical ventilator. There is improvement in oxygenation and FiO2 has been drop down to 60%. There is also further weaning the FiO2 down knowing that the patient's pulse ox and the pO2 is above 100. Meanwhile, the sputum cultures still pending. The patient is on a broad-spectrum antibiotic coverage with a combination of Zosyn and Levaquin. The patient is still sedated on a mechanical ventilator, intubated. On 05/13/2018, the patient remains on a mechanical ventilator. The patient is oxygenating and ventilating well. She is on the same antibiotic coverage. There is persistent but the pulmonary consolidation and infiltrates most on the right. The patient is on Zosyn and Levaquin the patient will be started on diuretics should there be a component of interstitial/pulmonary edema in association with his underlying pneumonia. Cultures of been all negative thus far. The patient remains hemodynamically stable. On 05/14/2018, the patient is still on a mechanical ventilator. There is some improvement in the chest x-ray findings and the patient is not ready for extubation yet. Hemodynamically stable for now. Overnight the patient had issues with SVT and currently she is in atrial fibrillation with a controlled rate. She is being diuresed gently. She is also being covered with broad- spectrum antibiotics regarding bilateral pneumonia. The sputum culture is negative for now. On 05/15/2018 I'm not seeing any major change in the patient's chest x-ray finding. She still has bilateral airspace disease probably combination of pneumonia fluids. The patient initially suspected to have pneumonia. Subsequently she was found to have severe mitral stenosis and regurgitation which probably is contributing to her respiratory failure. She has severe valvular heart disease and please refer to the echocardiogram results. She remains on broad-spectrum antibiotics. CAT scan of the chest is to follow from today. On 05/16/2018, and attempt of weaning was done, patient was placed on a pressure support of 10 and CPAP, noted to develop significant tachypnea, tachycardia, hence no more attempts were made, patient was placed back on assist control mode of mechanical ventilation. 2 bilateral lower lobe pneumonia with airspace disease and consolidations. Rule out aspiration pneumonia. Rule out community-acquired. Cultures of been negative thus far. 3 acute cardiac pulmonary arrest with brief loss in progress where the patient received CPR and received a dose of epinephrine with return of spontaneous circulation. Currently on no pressors. No signs of any hypoxic encephalopathy and the patient was given a brief sedation holiday and she was able to follow simple commands without any major difficulties 4 lactic acidosis secondary to above, improving and recovered 5 leukocytosis secondary to above, improving, and recovered 6 morbid obesity with a BMI of 43.4 7 obstructive sleep apnea 8 severe persistent bronchial asthma 9 history of right hemidiaphragmatic plication for unilateral paralysis 10 moderate to severe severe aortic stenosis and mitral stenosis, with a preserved LV function as evident on the echocardiogram 11 history of TIA 12 nephrolithiasis 13 gouty arthritis 14 hypothyroidism 13 hypertension 16 hyperlipidemia 17 history of atrial fibrillation on Rythmol and her current rhythm is back in atrial fibrillation with a controlled rate. 18 acid reflux 19 gout 20 degenerative arthritis 21 episodes of SVT, cardioverted 22 right sided pleural effusion, seen on ultrasound to be less than 5 cm, not safe to perform thoracentesis. Recommendation: Patient failed the spontaneous breathing trial, hence she was placed back on assist control mode of mechanical ventilation, we'll continue nutritional support, continue diuretics and the dose has been increased, ultrasound of the chest was reviewed and there isn't much fluid to perform thoracentesis, continue antibiotics, again it is strongly felt that is a combination of pneumonia and congestive heart failure with valvular heart disease causing the patient's respiratory failure. Condition of the patient was discussed with the family at bedside, updated on her overall clinical status , and again she is not ready for further weaning or extubation. We'll continue to follow closely in the intensive care unit. Critical care time is 40 minutes. Time with Patient: Greater than 30
--- NOTE | 2018-05-16 10:39 | US ---
EXAMINATION TYPE: US chest DATE OF EXAM: 05/16/2018 COMPARISON: Chest x ray CLINICAL HISTORY: norma right pleural effusion. Right side was assessed per patient's RN. EXAM MEASUREMENTS: Right Pleural Effusion fluid pocket: 4.5 cm A/P on recheck Right skin to fluid thickness: 4.4 cm Right side was not marked for possible thoracentesis outside the dept.as pocket size was < 5.0cm. Pulmonologists are able to review the images in the patient?s EMR. IMPRESSIONS: Small right pleural effusion and associated right basilar atelectasis with atelectatic l dunia seen directly adjacent to the small fluid pocket. This appears much smaller than on the prior rad iograph.
[2018-05-16 12:02] LABS: Glucose,Whole Blood 183 mg/dL (75-99)
[2018-05-16 12:24] LABS: Glucose,Whole Blood 164 mg/dL (75-99)
[2018-05-16] MEDS: CHLORHEXIDINE GLUCONATE 15 ML CUP MUCOUS MEM SCH ×2 (13:45→21:48)
[2018-05-16] MEDS: SODIUM CHLORIDE 0.9% 1,000 ML IV SCH (13:51)
[2018-05-16] MEDS ORDERED: WARFARIN 2 MG TAB PO ONE (18:00)
[2018-05-16 18:27] LABS: Glucose,Whole Blood 159 mg/dL (75-99)
--- NOTE | 2018-05-16 18:30 | P.PN ---
Subjective Progress Note Date: 05/16/18 Prognosis note being dictated for Dr. Calderon Interval history:Patient is on 73-year-old female with a known history of obstructive sleep apnea on biPAP, Hypothyroidism, valvular heart disease with aortic stenosis and congestive heart failure and multiple other medical problems including morbid obesity presented to hospital with worsening shortness of breath. Patient was at [facility] studies where she had progressive shortness of breath. Patient's pulse ox was low 70s upon EMS arrival. Patient was placed on 100% nonrebreather but the patient remained hypoxic. Patient was placed on BiPAP. And was transferred to ER. Patient was given breathing treatments while in the ER without much relief. Patient was subsequently intubated due to acute hypoxic respiratory failure. Currently patient is intubated and is in the medical intensive care unit. Chest x-ray showed no evidence of pneumothorax. Bilateral air space disease was present in the perihilar region in the lower lobes bilaterally right more than left. WC count was 22 on admission. Lactic acid 5.9 on admission ABG showed pH of 7.21 pCO2 63 and PaO2 88 with 100% FiO2. Patient is currently on Solu-Medrol 60 g every 6 hourly along with duo nebs and antibiotics in the form of levofloxacin and Zosyn. Cardiology and pulmonary is following. Chest x-ray this morning showed mildly improved aeration of the right lung otherwise stable 2-D echocardiogram showed ejection fraction 50-55% with severe severe mitral stenosis and severe aortic stenosis. Review of Systems Patient is currently intubated and sedated. Complete review of systems could not be apparent from the patient 05/13/2018 remains vent dependent, FiO2 50%/+5 of PEEP. Maintained on DIprovan. Telemetry sinus rhythm. Diuresing well on Lasix IV push with 24- hour I&O reflecting a negative fluid balance. Chest x-ray stable, persistent scattered infiltrates to bilateral lungs greatest in the right lung, small bilateral pleural effusions. Maintained on Zosyn and Levaquin .T-max 99.1, leukocytosis improving, sputum culture pending, preliminary blood cultures negative. Tolerating tube feeds with minimal to no residuals. IV fluids PIVL' D. 05/14/2018 Patient is currently vent dependent with assist control. Patient was tried for weaning today but patient was agitated and was sedated again. Patient is being continued on IV Lasix and Cardizem has been changed to oral. Patient went into atrial fibrillation with rapid ventricular rate last night and was started on Cardizem.. Pulmonary and cardiology is following. Chest x-ray showed slight improvement. 05/15/2018 Patient is currently on mechanical ventilator. Currently heart rate is controlled with Cardizem oral. Patient is in atrial fibrillation but heart rate is controlled. CT chest showed bilateral pleural effusion and cardiomegaly. Patient is being continued on Lasix 40 mg daily due to marginal blood pressure and severe underlying valvular heart disease. Cardiology and pulmonary is following. 05/16/2018 remains vent dependent, FiO2 40%/+5 of PEEP. Currently sinus rhythm ; A. fib with controlled ventricular rate last night. Anticoagulated on heparin drip.CPAP trial attempted, tolerated approximately 20 minutes, became tachypneic, tachycardic. Maintained on Diprivan. Chest x-ray reported stable moderate right pleural effusion Chest ultrasound reporting small right pleural effusion, less than 5 cm, not marked for thoracentesis. BUN 53, creatinine 0.7. Diuresing on Lasix IV push, 24-hour I&O reflecting a positive fluid balance, Lasix increased. Objective - Vital Signs Vital signs: Vital Signs Temp 98.4 F 05/16/18 08:00 Pulse 86 05/16/18 17:05 Resp 20 05/16/18 17:05 BP 95/52 05/16/18 16:00 Pulse Ox 94 L 05/16/18 16:00 Intake & Output 05/15/18 05/16/18 05/16/18 18:59 06:59 18:59 Intake Total 2406.227 1271.947 475 Output Total 7598 567 5595 Balance -733.837 828.947 -695 Weight 113 kg 113 kg Intake: IV 332.5 182.5 140 Levofloxacin 750Mg-D5w 150 Pmx 750 mg In Dextrose/ Water 1 150ml.bag @ 100 mls/hr IVPB Q24H NIRANJAN Rx#: [id number] Piperacillin-Tazobactam 3 62.5 112.5 50 .375 gm In Dextrose/Water 1 50ml.bag @ 12.5 mls/hr IVPB Q8H NIRANJAN Rx#: [id number] Sodium Chloride 0.9% 1, 120 70 90 000 ml @ 10 mls/hr IV . Q24H NIRANJAN Rx#:[id number] Intake, IV Titration 198.663 691.447 100 Amount Heparin Sod,Pork in 0.45% 484.072 NaCl 25,000 unit In 0.45 % NaCl 1 500ml.bag @ 8.9 UNITS/KG/HR 19.93 mls/hr IV .Q24H NIRANJAN Rx#: [id number] Propofol 1,000 mg In 198.663 207.375 100 Empty Bag 1 bag @ Titrate IV .Q0M NIRANJAN Rx#: [id number] Tube Feeding 560 560 175 Other 40 90 60 Output: Urine 3829 373 9003 Other: Voiding Method Indwelling Catheter Indwelling Catheter Indwelling Catheter ABP, PAP, CO, CI - Last Documented Arterial Blood Pressure - Exam Patient is lying in the bed comfortably, no acute distress, sedated and intubated. HEENT: Normocephalic. Neck is supple. Pupils reactive. Nostrils clear. Oral cavity is moist. Ears reveal no drainage. Neck reveals no JVD, carotid bruits, or thyromegaly. CHEST EXAMINATION: Trachea is central. Symmetrical expansion. Endotracheal tube in place. Fine bibasilar crackles with Scattered rhonchi and expiratory wheezes, Prolonged expiration. CARDIAC: Normal S1, S2 with no gallops. Systolic murmur ABDOMEN: Soft. Bowel sounds normal. No organomegaly. No abdominal bruits. Extremities: reveal no edema. No clubbing or cyanosis Neurologically unable to fully assess, patient is currently sedated and intubated. Microbiology 05/11/18 15:56 Blood Blood Culture - Preliminary No Growth after 120 hours 05/11/18 21:09 Sputum Gram Stain - Final 05/11/18 21:09 Sputum Sputum Culture - Final - Labs CBC & Chem 7: 05/16/18 04:52 05/16/18 04:52 Labs: Abnormal Lab Results - Last 24 Hours (Table) 05/15/18 05/16/18 05/16/18 Range/Units 23:21 04:42 04:52 WBC 12.5 H (3.8-10.6) k/uL Neutrophils # 10.6 H (1.3-7.7) k/uL INR (<1.2) APTT (22.0-30.0) sec ABG pH 7.48 H (7.35-7.45) ABG pCO2 51 H (35-45) mmHg ABG pO2 78 L (83-108) mmHg ABG HCO3 38 H (21-25) mmol/L ABG Total CO2 40 H (19-24) mmol/L Carbon Dioxide (22-30) mmol/L BUN (7-17) mg/dL Glucose (74-99) mg/dL POC Glucose (mg/dL) 137 H (75-99) mg/dL Magnesium (1.6-2.3) mg/dL 05/16/18 05/16/18 05/16/18 Range/Units 04:52 04:52 05:04 WBC (3.8-10.6) k/uL Neutrophils # (1.3-7.7) k/uL INR 1.2 H (<1.2) APTT 46.9 H (22.0-30.0) sec ABG pH (7.35-7.45) ABG pCO2 (35-45) mmHg ABG pO2 (83-108) mmHg ABG HCO3 (21-25) mmol/L ABG Total CO2 (19-24) mmol/L Carbon Dioxide 36 H (22-30) mmol/L BUN 53 H (7-17) mg/dL Glucose 156 H (74-99) mg/dL POC Glucose (mg/dL) 170 H (75-99) mg/dL Magnesium 2.4 H (1.6-2.3) mg/dL 05/16/18 05/16/18 Range/Units 12:00 12:22 WBC (3.8-10.6) k/uL Neutrophils # (1.3-7.7) k/uL INR (<1.2) APTT (22.0-30.0) sec ABG pH (7.35-7.45) ABG pCO2 (35-45) mmHg ABG pO2 (83-108) mmHg ABG HCO3 (21-25) mmol/L ABG Total CO2 (19-24) mmol/L Carbon Dioxide (22-30) mmol/L BUN (7-17) mg/dL Glucose (74-99) mg/dL POC Glucose (mg/dL) 183 H 164 H (75-99) mg/dL Magnesium (1.6-2.3) mg/dL Microbiology - Last 24 Hours (Table) 05/11/18 15:56 Blood Culture - Preliminary Blood No Growth after 120 hours Assessment and Plan Assessment: Acute hypoxic respiratory failure. Multifactorial secondary to pneumonia ,CHF and COPD. Currently patient is intubated. Bilateral lower lobe pneumonia. Right greater than left Acute cardio pulmonary arrest with brief loss of pulse status post CPR and a dose of epinephrine with return of spontaneous circulation. Lactic acidosis 5.9 on admission improving Sepsis secondary to pneumonia Obstructive sleep apnea on BiPAP at home Morbid obesity with BMI 44.9 with possible underlying obesity hypoventilation Acute on chronic CHF with systolic dysfunction as well as valvular heart disease History of right hemidiaphragmatic plication for unilateral paralysis History of TIA Nephrolithiasis Osteoarthritis Hypothyroidism with low free T4 level and elevated TSH. Uncontrolled History of atrial fibrillation. Paroxysmal. Currently in sinus rhythm on Rythmol GERD Gout Plan: Continue on current medication regime ,monitoring and symptomatic treatment. Maintain nebulized bronchodilators, systemic steroids, antibiotics of Zosyn and Levaquin. Continue diuresing on increased dosing of Lasix IV push. Follow cultures closely. Prognosis guarded given multiple complex medical issues. The impression and plan of care has been dictated as directed. : I performed a history and examination of this patient, discussed the same with the dictator. I agree with the dictator's note ,documented as a scribe. Any additional findings or plans will be noted.
[2018-05-16] MEDS: LEVOFLOXACIN 750MG-D5W PMX 750 MG in DEXTROSE/WATER 1 150ML.BAG IVPB SCH (18:59)
[2018-05-16 23:17] LABS: Glucose,Whole Blood 146 mg/dL (75-99)
[2018-05-17] MEDS: IPRATROPIUM-ALBUTEROL 3 ML NEB INHALATION SCH ×6 (00:29→19:17)
[2018-05-17] MEDS: PIPERACILLIN-TAZOBACTAM 3.375 GM in DEXTROSE/WATER 1 50ML.BAG IVPB SCH ×3 (03:10→20:08)
[2018-05-17 04:27] LABS: Basophils % (A) 0 %; Eosinophils % (A) 0 %; HGB 12.5 gm/dL (11.4-16.0); Lymphocytes # (A) 0.9 k/uL (1.0-4.8); Lymphocytes % (A) 7 %; MCH 28.6 pg (25.0-35.0); MCHC 32.1 g/dL (31.0-37.0); MCV 89.1 fL (80.0-100.0); Monocytes # (A) 0.5 k/uL (0-1.0); Monocytes % (A) 4 %; Neutrophils # (A) 12.1 k/uL (1.3-7.7); Neutrophils % (A) 88 %; Platelet Count 218 k/uL (150-450); RBC 4.38 m/uL (3.80-5.40); RDW 14.2 % (11.5-15.5); WBC 13.8 k/uL (3.8-10.6)
[2018-05-17 04:29] LABS: INR 1.2 (<1.2); Partial Thromboplastin Time 46.7 sec (22.0-30.0); Prothrombin Time 11.8 sec (9.0-12.0)
[2018-05-17 05:21] LABS: Anion Gap 6 mmol/L; Blood Urea Nitrogen 53 mg/dL (7-17); Calcium 8.5 mg/dL (8.4-10.2); Chloride 95 mmol/L (98-107); Glucose 166 mg/dL (74-99); Magnesium 2.5 mg/dL (1.6-2.3); Phosphorus 4.8 mg/dL (2.5-4.5); Potassium 3.4 mmol/L (3.5-5.1); Sodium 141 mmol/L (137-145)
[2018-05-17] MEDS: methylPREDNISolone SOD SUCCI 125 MG/2 ML VIAL IV SCH ×3 (05:34→17:01)
[2018-05-17] MEDS: ARTIFICIAL TEARS-HYPROMELLOSE DROPS 15 ML BTL BOTH EYES PRN (05:34)
[2018-05-17 05:37] LABS: Carbon Dioxide 40 mmol/L (22-30)
[2018-05-17 05:45] LABS: Glucose,Whole Blood 183 mg/dL (75-99)
[2018-05-17] MEDS ORDERED: Potassium Replacement Protocol 1 EACH MISC MISCELLANE PRN (05:49)
[2018-05-17] MEDS: INSULIN ASPART 100 UNIT/ML 1 ML 10 ML VIAL SQ SCH ×3 (05:51→19:10)
[2018-05-17] MEDS: LEVOTHYROXINE 50 MCG TAB PO SCH (05:51)
[2018-05-17] MEDS: POTASSIUM BICARBONATE/CIT AC 20 MEQ TABLET.EFF NG-TUBE SCH ×2 (06:04→09:06)
[2018-05-17 07:34] LABS: ABG Base Excess 16.9 mmol/L; ABG HCO3 38 mmol/L (21-25); ABG Oxygen Saturation 99.6 % (94-97); ABG PCO2 37 mmHg (35-45); ABG PO2 134 mmHg (83-108); ABG TCO2 39 mmol/L (19-24)
[2018-05-17 07:38] LABS: ABG PH 7.62 (7.35-7.45)
--- NOTE | 2018-05-17 07:47 | P.PN ---
Subjective Progress Note Date: 05/17/18 Principal diagnosis: Acute hypoxic respiratory failure This is a 77-year-old female patient who was admitted to the intensive care unit with cardiopulmonary arrest. Currently the patient is intubated and she is on ventilator. The patient was in her usual state of health until yesterday when she was at the [facility] and she started experiencing shortness of breath. She didn't go home and she did to back-to- back breathing treatment without any improvement in her symptoms. At that point the patient called her daughter came in and found her mother in respiratory distress where at that point EMS was called and the patient was hypoxic where she was brought to the emergency room. In the ER the patient did have cardiopulmonary arrest with PDA and she received 2 epinephrine and she was intubated at that point and she was brought to the intensive care unit. Currently the patient is intubated unit nit. Currently the patient is intubated but remain hemodynamically stable and she is not on any vasopressors. The patient does have history of obstructive sleep apnea and she uses CPAP machine. She is obese. The side that interim of cardiac history she does have history of mild nonobstructive coronary artery disease based on heart catheterization was performed in 2013. The patient underwent an echocardiogram bedside today and that revealed normal left ventricle systolic function with hypertensive heart disease and evidence off severe mitral stenosis with a mean gradient across the mitral valve 20 mmHg as well as moderate to severe aortic stenosis with a mean gradient across aortic valve of 30 mmHg. The chest x-ray showed what it seems to be possible bilateral pneumonia with possible component of congestive heart failure. The BNP came in to be around 1000. The EKG showed sinus rhythm with sinus tachycardia and nonspecific changes in the lateral leads. The first set of troponin came in to be normal and we'll obtain 2 more sets of troponin. The lactic acid is elevated. On follow-up with the patient today, she continues waking up. She still require high FiO2 of about 50%. Hemodynamically she is a stable but she is in atrial fibrillation was controlled heart rate. I am going to add amiodarone bolus and drip to the current medical regimen trying to convert the patient to normal sinus mechanism and improve her hemodynamics. At the chest x-ray from this morning was if you would and showed increasing right pleural effusion and there is possibility that the patient need to undergo pleurocentesis. Because of that I am holding the Coumadin and continue IV heparin for anticoagulation. She continues to be on IV Lasix which was increased yesterday. Objective - Vital Signs Vital signs: Vital Signs Temp 97.6 F 05/17/18 04:00 Pulse 91 05/17/18 07:40 Resp 22 05/17/18 07:00 BP 114/53 05/17/18 07:00 Pulse Ox 96 05/17/18 07:00 Intake & Output 05/16/18 05/17/18 05/17/18 18:59 06:59 18:59 Intake Total 992.853 0831.5 Output Total 1320 1815 Balance -691.182 -567.5 Weight 113 kg 110.2 kg Intake: IV 170 332.5 Levofloxacin 750Mg-D5w 150 Pmx 750 mg In Dextrose/ Water 1 150ml.bag @ 100 mls/hr IVPB Q24H NIRANJAN Rx#: [id number] Piperacillin-Tazobactam 3 50 62.5 .375 gm In Dextrose/Water 1 50ml.bag @ 12.5 mls/hr IVPB Q8H NIRANJAN Rx#: [id number] Sodium Chloride 0.9% 1, 120 120 000 ml @ 10 mls/hr IV . Q24H NIRANJAN Rx#:[id number] Intake, IV Titration 188.818 500 Amount Heparin Sod,Pork in 0.45% 500 NaCl 25,000 unit In 0.45 % NaCl 1 500ml.bag @ 8.9 UNITS/KG/HR 19.93 mls/hr IV .Q24H NIRANJAN Rx#: [id number] Propofol 1,000 mg In 188.818 Empty Bag 1 bag @ Titrate IV .Q0M NIRANJAN Rx#: [id number] Tube Feeding 210 385 Other 60 30 Output: Urine 1320 1815 Other: Voiding Method Indwelling Catheter Indwelling Catheter ABP, PAP, CO, CI - Last Documented Arterial Blood Pressure 24 - Constitutional General appearance: Present: no acute distress - Respiratory Respiratory: right: diminished, left: CTA - Cardiovascular Rhythm: irregularly irregular Heart sounds: normal: S1, S2 Abnormal Heart Sounds: Present: systolic murmur - Labs CBC & Chem 7: 05/17/18 04:00 05/17/18 04:00 Labs: Abnormal Lab Results - Last 24 Hours (Table) 05/16/18 05/16/18 05/16/18 Range/Units 12:00 12:22 18:26 WBC (3.8-10.6) k/uL Neutrophils # (1.3-7.7) k/uL Lymphocytes # (1.0-4.8) k/uL INR (<1.2) APTT (22.0-30.0) sec ABG pH (7.35-7.45) ABG pO2 (83-108) mmHg ABG HCO3 (21-25) mmol/L ABG Total CO2 (19-24) mmol/L ABG O2 Saturation (94-97) % Potassium (3.5-5.1) mmol/L Chloride (98-107) mmol/L Carbon Dioxide (22-30) mmol/L BUN (7-17) mg/dL Glucose (74-99) mg/dL POC Glucose (mg/dL) 183 H 164 H 159 H (75-99) mg/dL Phosphorus (2.5-4.5) mg/dL Magnesium (1.6-2.3) mg/dL 05/16/18 05/17/18 05/17/18 Range/Units 23:16 04:00 04:00 WBC 13.8 H (3.8-10.6) k/uL Neutrophils # 12.1 H (1.3-7.7) k/uL Lymphocytes # 0.9 L (1.0-4.8) k/uL INR (<1.2) APTT (22.0-30.0) sec ABG pH (7.35-7.45) ABG pO2 (83-108) mmHg ABG HCO3 (21-25) mmol/L ABG Total CO2 (19-24) mmol/L ABG O2 Saturation (94-97) % Potassium 3.4 L (3.5-5.1) mmol/L Chloride 95 L (98-107) mmol/L Carbon Dioxide 40 H* (22-30) mmol/L BUN 53 H (7-17) mg/dL Glucose 166 H (74-99) mg/dL POC Glucose (mg/dL) 146 H (75-99) mg/dL Phosphorus 4.8 H (2.5-4.5) mg/dL Magnesium 2.5 H (1.6-2.3) mg/dL 05/17/18 05/17/18 05/17/18 Range/Units 04:00 05:44 07:29 WBC (3.8-10.6) k/uL Neutrophils # (1.3-7.7) k/uL Lymphocytes # (1.0-4.8) k/uL INR 1.2 H (<1.2) APTT 46.7 H (22.0-30.0) sec ABG pH 7.62 H* (7.35-7.45) ABG pO2 134 H (83-108) mmHg ABG HCO3 38 H (21-25) mmol/L ABG Total CO2 39 H (19-24) mmol/L ABG O2 Saturation 99.6 H (94-97) % Potassium (3.5-5.1) mmol/L Chloride (98-107) mmol/L Carbon Dioxide (22-30) mmol/L BUN (7-17) mg/dL Glucose (74-99) mg/dL POC Glucose (mg/dL) 183 H (75-99) mg/dL Phosphorus (2.5-4.5) mg/dL Magnesium (1.6-2.3) mg/dL Microbiology - Last 24 Hours (Table) 05/11/18 15:56 Blood Culture - Preliminary Blood No Growth after 120 hours Assessment and Plan Assessment: Assessment #1 acute respiratory failure #2 cardiopulmonary arrest #3 possible bilateral pneumonia #4 congestive heart failure secondary to systolic dysfunction and valvular heart disease #5 valvular heart disease with severe mitral stenosis and moderate to severe aortic stenosis #6 obstructive sleep apnea #7 morbid obesity Plan #1 currently the patient is intubated and she is on ventilator. Tube Closing Machine Operator on the case #2 she is getting treated for bilateral pneumonia #3 add amiodarone bolus and drip to the current medical regimen #4 continue IV Lasix #5 hold Coumadin and continue IV heparin #6 follow-up with the patient.
[2018-05-17] MEDS ORDERED: DEXTROSE 5% IN WATER 100 ML with AMIODARONE 150 MG IV ONE (08:17)
--- NOTE | 2018-05-17 08:21 | XR ---
EXAMINATION TYPE: XR chest 1V portable DATE OF EXAM: 05/17/2018 Comparison: 05/16/2018 Clinical History: 77-year-old female Tube placement Findings: ET tube remains in place. NG tube courses below the diaphragm. Left subclavian CVC tip at the cavoatr ial junction. Right heart margin obscured by adjacent pleural parenchymal opacity. Continued moderate opacity at the right lower lung and small left effusion with retrocardiac opacity. Impression: Overall similar moderate right and small left pleural effusions with adjacent atelectasis and/or cons olidation.
[2018-05-17] MEDS: PROPOFOL 1,000 MG in EMPTY BAG 1 BAG IV SCH ×3 (09:01→22:34)
[2018-05-17] MEDS: HEPARIN SOD,PORK IN 0.45% NACL 25,000 UNIT in 0.45% NACL 1 500ML.BAG IV SCH (09:05)
[2018-05-17] MEDS: AMIODARONE 450 MG in DEXTROSE 5% IN WATER 250 ML IV SCH ×6 (09:08→22:32)
[2018-05-17] MEDS: DILTIAZEM ORAL 60 MG TAB PO SCH ×3 (09:17→22:25)
[2018-05-17] MEDS: FUROSEMIDE 10 MG/ML 4 ML VIAL IV SCH ×2 (09:18→16:59)
[2018-05-17] MEDS: PANTOPRAZOLE 40 MG/10 ML VIAL IVP SCH (09:18)
[2018-05-17] MEDS: CHLORHEXIDINE GLUCONATE 15 ML CUP MUCOUS MEM SCH ×2 (09:18→20:08)
--- NOTE | 2018-05-17 11:31 | P.PN ---
Subjective Progress Note Date: 05/17/18 Principal diagnosis: Acute hypoxic respiratory failure secondary to bilateral lower lobe pneumonia and congestive heart failure. A 77-year-old morbidly obese female patient with known history of obstructive sleep apnea maintained on BiPAP therapy on outpatient basis and addition to chronic bronchial asthma and significant limitation in exercise capacity secondary to her age body habitus and comorbidities, presented to the hospital because of an acute respiratory failure. I interviewed the daughter. Apparently the patient was at [employer] studies and she was getting progressively more short of breath. After arriving home she did [id number] breathing treatments without much relief. Ultimately she called her daughter who arrived to the scene and she saw that her mother was having more chest congestion, respirator distress, wheezing, and she was headed into respiratory failure. EMS was called to the scene. Upon arrival of EMS, the patient's pulse ox was in the low 70s pH was placed on on the percent nonrebreather facemask as she remained hypoxic and following that the patient was placed on BiPAP. The patient was moved to the emergency department. The patient was seen immediately after she arrived the ED. She was hypoxic, and she was cold and clammy and salmon color and cyanotic. As we were getting ready to intubate the patient, the patient lost pulse briefly and she became bradycardic. She went to the [facility]. She received a dose of epinephrine. She was started on CPR. Within 1 minute she recovered her pulse and the blood pressure. She was intubated and placed on a mechanical ventilator. She currently has a 7.[address] She is an assist-control mode of ventilation at the rate of 26, tidal volume of 400, FiO2 of 100% and a PEEP of 5. Immediately postintubation the blood pressure improved and she had a systolic above 200. She was started on propofol for sedation and her current systolic blood pressure in the 150s. A Poe catheter was inserted. The peak pressures in the 38-40 range. Static pressures around 32. The patient has significant bronchospasm and wheezing. A chest x-ray was done post intubation and post line placement and the chest x- ray showed no evidence of any pneumothorax. Bilateral air space disease was present in the perihilar regions in the lower lobes bilaterally right more than left. ET tube and NG tube were in good location. The patient also had a left subclavian triple-lumen catheter that was inserted without any complications. She was started on IV Zosyn knowing that the patient also briefly aspirated and vomited at the time of the intubation. Labs showed a white cell count of 22. The postintubation blood gas showed a pH of 7.21 with a pCO2 of 63 and pO2 of 88 and this blood gases on 100% FiO2. Initial lactic acid level was at 5.9 On today's evaluation of 05/12/2018 I'm seeing this patient for a follow-up. The patient remains intubated on a mechanical ventilator. Sedated with Diprivan at 30 mics per KG per minute. She is well sedated and she is synchronous with the mechanical ventilator. She is an assist-control mode of ventilation at the rate of 26 with a tidal volume of 400 and FiO2 of 60% with a PEEP of 5. The patient's chest x-ray from today is showing some mild improvement examination of the right midlung field. Otherwise the rest of the signs are all stable. ET tube is in a good location. The patient has consolidation of the right lung involving the right apex and the right lung base. There is also some perihilar pulmonary infiltrates bilaterally addition to some cardiomegaly. There is chronic elevation of the right hemidiaphragm. The blood gases from today showed a pH of 7.33 with a pCO2 of 47 and pO2 of 77 and it wasn't an FiO2 of 60%. The lactic acid level is down to 1.9 from 2.9 in addition. The patient was given briefly a sedation holiday and she was able to follow commands, simple commands and following that the patient was placed back on sedation. She did not require any pressors and the patient is maintaining home blood pressure. She was seen by cardiology today. Echocardiogram was done. The echo showed normal LV function with hypertensive heart disease and evidence of severe mitral stenosis with a mean gradient across the mitral valve of 20 mmHg as well as moderate to severe aortic stenosis with a mean gradient across the valve of 30 mmHg. The patient's cardiac rhythm is still sinus. She remains on broad-spectrum antibiotic coverage with a combination of Zosyn and Levaquin. The sputum cultures still negative for now. Blood cultures have been sent and the results are still negative for now. White cell count is elevated at 22.3. The patient was started on Lasix by cardiology 40 mg IV every 24 hours. She is also normal state rate of 40 mL an hour for now. On today's evaluation of 05/13/2018, the patient remains intubated on a mechanical ventilator. She is lightly sedated and the patient can easily aroused from propofol infusion. She remains on a mechanical ventilator the same vent setting. The blood gas from today, while on the 50% FiO2 showed a pH of 7.39 with a pCO2 of 40 and a pO2 of 81. White cell count is down to 17. The chest x-ray from today is showing persistent bilateral pulmonary infiltrates most on the right upper lobe and the right lower lobe. There is also small bilateral pleural effusion and cardiomegaly. ET tube remains in a good location. Cultures of been all negative thus far. The patient is afebrile and the patient is hemodynamically stable. Also, echocardiogram showed moderate to severe mitral stenosis and aortic valve stenosis and the patient was started on diuresis yesterday. I think we need to diurese this patient more aggressively over the next 24 hours. She'll feeds are running and the patient is tolerating her tube feeds without any major difficulties. Patient is producing adequate amount of urine output. Cardiac rhythm remains sinus. No other significant events over the past 24 hours. On 05/14/2089 seeing this patient for a follow-up. The patient remains intubated on a mechanical ventilator. She is on gentle sedation and she can easily aroused from her sedation and she can follow commands and answer questions appropriately. Her chest x-ray from today is showing some improvement in the aeration of the right lung. The patient has developed a consolidation and effusion the right lung base. The upper lobes are more clear. ET tube is in a good location. She remains on a mechanical ventilator. Assist-control mode of ventilation. She has a rate of 26, tidal volume of 400 , FiO2 is still at 60% with a PEEP of 5. Her blood gases from today showed a pH of 7.39 , pCO2 of 49 and pO2 of 81. I doubt the FiO2 down to 50%. I asked the nursing staff to stop the sedation completely and we checked her weaning parameters and the weaning parameters showed a NIF of -35 and vital Of 935 and the rapid shallow breathing index was less than 100. Based on that, the patient was given a spelled his breathing trial. She lasted for a total of 30 minutes. Following that she became tachycardic and cachectic. Blood gases obtained and the patient had a pH of 7.48 with a pCO2 of 48 and pO2 of 78. Nevertheless, based on ongoing shortness of breath, we decided not to extubate the patient knowing that she was not quite ready for extubation. Noted over the past 24 hours to monitor the patient has significant cardiac events. The patient went into an SVT. She was a rapid ventricular response. She had to be cardioverted. Subsequently she went into atrial fibrillation/flutter rhythm. Her rate is controlled for now. Nevertheless the patient is on Cardizem 30 mg by mouth 3 times a day. She was also placed on IV heparin by cardiology. As mentioned earlier she has valvular heart disease with severe mitral regurgitation stenosis. The diuretics have been cut down to 40 g IV Lasix every 12 hours. The net fluid balance is -2 L for yesterday. No fever. No chills. White cell count is down to 12.6. On 05/15/2018, patient is being seen in follow-up. He remains on a mechanical ventilator. Still on the same vent setting within assist-control mode at the rate of 26 with an FiO2 of 50% with a tidal volume of 400 and a PEEP of 5. The blood gas showed a pH of 7.45 with a pCO2 of 51 and pO2 of 91. No major improvement of the chest x-ray finding and the patient continues to have significant amount of bilateral airspace disease and bilateral pleural effusion more so on the right. The patient is in a controlled rhythm with atrial fibrillation. The patient is diuresing gently with IV Lasix. Unable to do aggressively diurese this patient because of evolving hypotension. The patient has severe mitral stenosis and approximately 2 fibrillation. The patient is also on broad-spectrum antibiotic coverage. She was given a sedation holiday and this point is breathing trial which she was able to tolerate for quite some time and following that she became short of breath and tachycardic and tachypneic and based on that the child was discontinued and the patient was not extubated. She is in a negative fluid balance. The net fluid balance for yesterday was -1.6 L. We are still diuresing this patient and she has a good urine output. She is afebrile. She is tolerating her tube feeds. She is very easily arousable and currently she is sedated with Diprivan. Overall no major changes and conditions compared to yesterday. I'm going to proceed with a CAT scan of the chest to characterized the pulmonary abnormalities. At the same time the patient was started on anticoagulation with warfarin. On 05/16/2018, patient was evaluated, and she remains on mechanical ventilation. Her ventilator settings are assist control rate of 26, tidal volume of 400, FiO2 of 50%, and PEEP of 5. ABG showed a pO2 of 78 pCO2 of 51 pH of 7.48. Patient is awake, responsive to all verbal commands, follows all instructions, hence I took her off propofol, and recommended a spontaneous breathing trial. Placed on pressure support of 10 with CPAP, however she only lasted about 20 minutes and she was noted to have increased respiratory rate, tachycardia, and she was developing a bit of respiratory distress. Hence the patient was switched back to assist control mode of mechanical ventilation. And I felt that she is not ready to be weaned. Ultrasound of the chest was done, there was evidence of less than 5 cm pocket of fluid on the right pleural space, hence I did not feel the patient would benefit much from thoracentesis, not to mention that is associated with thoracentesis considering the amount of fluid is small. All labs were reviewed, her renal profile seems to be relatively normal however her BUN is 53 creatinine is 0.70, more of a prerenal type of azothemia. CBC is relatively normal with minimal leukocytosis. Heparin is therapeutic for her atrial fibrillation. Hemodynamically, the patient is stable , and not requiring any norepinephrine at this point. Propofol is presently on hold. Nutrition is also address, and the patient is being fed with nasogastric tube/enteral feeding. Fluid balance noted over the last 24 hours to be about 90 mL positive. Hence the Lasix dose was increased to twice a day. On 05/17/2018, patient remains on mechanical ventilation, ventilator settings at present are tidal volume of 400, assist control rate of 16 FiO2 of 50% and PEEP of 5. ABG showed a pO2 of 134 pCO2 of 37 pH of 7.62. Patient is not breathing beyond the ventilator settings, hence I cut down her rate from 20-16. And I felt that the patient has significant metabolic alkalosis, but probably this patient's baseline pCO2 is normally in the 50s or 60s to begin with. So the alkalosis were noting is metabolic and respiratory in nature or alkalosis post correction of respiratory acidosis. At any rate we'll continue diuretics, her chest x-ray continues to show bilateral pleural effusion especially on the right side, but the ultrasound did not show enough fluid to safely perform a thoracentesis the pocket was less than 5 cm. Fluid balance is negative about 1258 in the last 24 hours. Urine output remains excellent. Renal functioning is about the same with a BUN of 53 creatinine of 0.70. Patient was placed on amiodarone by cardiology, and she is on heparin for atrial fibrillation. WBC count is 15.8 hemoglobin is 12.5. Patient is on 50 g of propofol, but she is awake, following all instructions, and I suggested that we discontinue propofol , wake of the patient, and given a trial of pressure support of 10 and CPAP. If tolerated we could potentially consider extubating the patient to BiPAP. If not tolerated a sugar go back on assist control mode of mechanical ventilation, higher dose of propofol to sedate her a bit more, and wait for another day to address weaning all over again. Objective - Vital Signs Vital signs: Vital Signs Temp 97.6 F 05/17/18 04:00 Pulse 79 05/17/18 11:20 Resp 24 05/17/18 10:00 BP 134/69 05/17/18 10:00 Pulse Ox 97 05/17/18 10:00 Intake & Output 05/16/18 05/17/18 05/17/18 18:59 06:59 18:59 Intake Total 965.731 3043.5 245.967 Output Total 1320 1815 370 Balance -680.000 -567.5 -124.033 Weight 113 kg 110.2 kg Intake: IV 170 332.5 30 Levofloxacin 750Mg-D5w 150 Pmx 750 mg In Dextrose/ Water 1 150ml.bag @ 100 mls/hr IVPB Q24H NIRANJAN Rx#: [id number] Piperacillin-Tazobactam 3 50 62.5 .375 gm In Dextrose/Water 1 50ml.bag @ 12.5 mls/hr IVPB Q8H [facility]ANJ[facility] Rx#: [id number] Sodium Chloride 0.9% 1, 120 120 30 000 ml @ 10 mls/hr IV . Q24H NIRANJAN Rx#:[id number] Intake, IV Titration 200.000 500 75.967 Amount Heparin Sod,Pork in 0.45% 500 68.253 NaCl 25,000 unit In 0.45 % NaCl 1 500ml.bag @ 8.9 UNITS/KG/HR 19.93 mls/hr IV .Q24H NIRANJAN Rx#: [id number] Propofol 1,000 mg In 200.000 7.714 Empty Bag 1 bag @ Titrate IV .Q0M NIRANJAN Rx#: [id number] Tube Feeding 210 385 140 Other 60 30 Output: Urine 1320 1815 370 Other: Voiding Method Indwelling Catheter Indwelling Catheter Indwelling Catheter ABP, PAP, CO, CI - Last Documented Arterial Blood Pressure - Exam Physical Exam: Revealed a 77-year-old female, obese, on mechanical ventilation, in no distress while on assist control mode of mechanical ventilation. Head: Atraumatic, normocephalic. Endotracheal tube and orogastric tube are noted to be intact. HEENT:[Neck is supple.] [No neck masses.] [No thyromegaly.] [No JVD.] PERRLA, EOMI, moist mucous membranes, no icterus was noted. Left sided subclavian triple-lumen catheter is noted to be in place. Chest: [Symmetrical expansion, diminished breath sounds at the bases especially at the left base, with crackles. No rhonchi, no wheezes.] Cardiac Exam: [Irregular irregular rhythm Normal S1 and S2, no S3 gallop, no murmur.] Abdomen: Obese, [Soft, nontender, no megaly, no rebound, no guarding, normal bowel sounds.] Extremities: [No clubbing, no edema, no cyanosis.] Neurological Exam: [No focal neurologic deficit.] Alert oriented 3, Psychiatric: Normal mood affect and mental status examination. Lymphatics: No lymphadenopathy. Skin: No rashes. Musculoskeletal: No limitations in range of motion. - Labs CBC & Chem 7: 05/17/18 04:00 05/17/18 04:00 Labs: Abnormal Lab Results - Last 24 Hours (Table) 05/16/18 05/16/18 05/16/18 Range/Units 12:00 12:22 18:26 WBC (3.8-10.6) k/uL Neutrophils # (1.3-7.7) k/uL Lymphocytes # (1.0-4.8) k/uL INR (<1.2) APTT (22.0-30.0) sec ABG pH (7.35-7.45) ABG pO2 (83-108) mmHg ABG HCO3 (21-25) mmol/L ABG Total CO2 (19-24) mmol/L ABG O2 Saturation (94-97) % Potassium (3.5-5.1) mmol/L Chloride (98-107) mmol/L Carbon Dioxide (22-30) mmol/L BUN (7-17) mg/dL Glucose (74-99) mg/dL POC Glucose (mg/dL) 183 H 164 H 159 H (75-99) mg/dL Phosphorus (2.5-4.5) mg/dL Magnesium (1.6-2.3) mg/dL 05/16/18 05/17/18 05/17/18 Range/Units 23:16 04:00 04:00 WBC 13.8 H (3.8-10.6) k/uL Neutrophils # 12.1 H (1.3-7.7) k/uL Lymphocytes # 0.9 L (1.0-4.8) k/uL INR (<1.2) APTT (22.0-30.0) sec ABG pH (7.35-7.45) ABG pO2 (83-108) mmHg ABG HCO3 (21-25) mmol/L ABG Total CO2 (19-24) mmol/L ABG O2 Saturation (94-97) % Potassium 3.4 L (3.5-5.1) mmol/L Chloride 95 L (98-107) mmol/L Carbon Dioxide 40 H* (22-30) mmol/L BUN 53 H (7-17) mg/dL Glucose 166 H (74-99) mg/dL POC Glucose (mg/dL) 146 H (75-99) mg/dL Phosphorus 4.8 H (2.5-4.5) mg/dL Magnesium 2.5 H (1.6-2.3) mg/dL 05/17/18 05/17/18 05/17/18 Range/Units 04:00 05:44 07:29 WBC (3.8-10.6) k/uL Neutrophils # (1.3-7.7) k/uL Lymphocytes # (1.0-4.8) k/uL INR 1.2 H (<1.2) APTT 46.7 H (22.0-30.0) sec ABG pH 7.62 H* (7.35-7.45) ABG pO2 134 H (83-108) mmHg ABG HCO3 38 H (21-25) mmol/L ABG Total CO2 39 H (19-24) mmol/L ABG O2 Saturation 99.6 H (94-97) % Potassium (3.5-5.1) mmol/L Chloride (98-107) mmol/L Carbon Dioxide (22-30) mmol/L BUN (7-17) mg/dL Glucose (74-99) mg/dL POC Glucose (mg/dL) 183 H (75-99) mg/dL Phosphorus (2.5-4.5) mg/dL Magnesium (1.6-2.3) mg/dL Microbiology - Last 24 Hours (Table) 05/11/18 15:56 Blood Culture - Preliminary Blood No Growth after 120 hours Assessment and Plan Assessment: 1 acute hypoxic respiratory failure with bilateral lower lobe pneumonia and possibly component of diastolic CHF. The patient presented emergency department with acute respiratory arrest, intubated and placed on a mechanical ventilator On 05/12/2018 the patient remains intubated on a mechanical ventilator. There is improvement in oxygenation and FiO2 has been drop down to 60%. There is also further weaning the FiO2 down knowing that the patient's pulse ox and the pO2 is above 100. Meanwhile, the sputum cultures still pending. The patient is on a broad-spectrum antibiotic coverage with a combination of Zosyn and Levaquin. The patient is still sedated on a mechanical ventilator, intubated. On 05/13/2018, the patient remains on a mechanical ventilator. The patient is oxygenating and ventilating well. She is on the same antibiotic coverage. There is persistent but the pulmonary consolidation and infiltrates most on the right. The patient is on Zosyn and Levaquin the patient will be started on diuretics should there be a component of interstitial/pulmonary edema in association with his underlying pneumonia. Cultures of been all negative thus far. The patient remains hemodynamically stable. On 05/14/2018, the patient is still on a mechanical ventilator. There is some improvement in the chest x-ray findings and the patient is not ready for extubation yet. Hemodynamically stable for now. Overnight the patient had issues with SVT and currently she is in atrial fibrillation with a controlled rate. She is being diuresed gently. She is also being covered with broad- spectrum antibiotics regarding bilateral pneumonia. The sputum culture is negative for now. On 05/15/2018 I'm not seeing any major change in the patient's chest x-ray finding. She still has bilateral airspace disease probably combination of pneumonia fluids. The patient initially suspected to have pneumonia. Subsequently she was found to have severe mitral stenosis and regurgitation which probably is contributing to her respiratory failure. She has severe valvular heart disease and please refer to the echocardiogram results. She remains on broad-spectrum antibiotics. CAT scan of the chest was noted and reviewed. On 05/16/2018, and attempt of weaning was done, patient was placed on a pressure support of 10 and CPAP, noted to develop significant tachypnea, tachycardia, hence no more attempts were made, patient was placed back on assist control mode of mechanical ventilation. 2 bilateral lower lobe pneumonia with airspace disease and consolidations. Rule out aspiration pneumonia. Rule out community-acquired. Cultures of been negative thus far. 3 acute cardiac pulmonary arrest with brief loss in progress where the patient received CPR and received a dose of epinephrine with return of spontaneous circulation. Currently on no pressors. No signs of any hypoxic encephalopathy and the patient was given a brief sedation holiday and she was able to follow simple commands without any major difficulties 4 lactic acidosis secondary to above, improving and recovered 5 leukocytosis secondary to above, improving, and recovered 6 morbid obesity with a BMI of 43.4 7 obstructive sleep apnea 8 severe persistent bronchial asthma 9 history of right hemidiaphragmatic plication for unilateral paralysis 10 moderate to severe severe aortic stenosis and mitral stenosis, with a preserved LV function as evident on the echocardiogram 11 history of TIA 12 nephrolithiasis 13 gouty arthritis 14 hypothyroidism 13 hypertension 16 hyperlipidemia 17 history of atrial fibrillation on Rythmol and her current rhythm is back in atrial fibrillation with a controlled rate. 18 acid reflux 19 gout 20 degenerative arthritis 21 episodes of SVT, cardioverted 22 right sided pleural effusion, seen on ultrasound to be less than 5 cm, not safe to perform thoracentesis. Recommendation: No plans for thoracentesis, ventilator settings were adjusted, continue nutritional support, give the patient another spontaneous breathing trial today with pressure support and CPAP, if not tolerated placed back on assist control mode of mechanical ventilation, continue diuretics, continue amiodarone, diuretics, and we'll continue to follow closely. Overall prognosis remains very poor and guarded. And patient remains critically ill. Critical care time is 35 minutes. Time with Patient: Greater than 30
[2018-05-17 11:44] LABS: Glucose,Whole Blood 171 mg/dL (75-99)
[2018-05-17] MEDS: SODIUM CHLORIDE 0.9% 1,000 ML IV SCH (12:02)
[2018-05-17] MEDS: LORazepam 2 MG/ML INJ IV PRN (14:16)
[2018-05-17 17:57] LABS: Glucose,Whole Blood 188 mg/dL (75-99)
[2018-05-17] MEDS ORDERED: WARFARIN 2 MG TAB PO ONE (18:00)
[2018-05-17] MEDS: LEVOFLOXACIN 750MG-D5W PMX 750 MG in DEXTROSE/WATER 1 150ML.BAG IVPB SCH (18:01)
--- NOTE | 2018-05-17 18:03 | P.PN ---
Subjective Progress Note Date: 05/17/18 Prognosis note being dictated for Dr. Calderon Interval history:Patient is on 73-year-old female with a known history of obstructive sleep apnea on biPAP, Hypothyroidism, valvular heart disease with aortic stenosis and congestive heart failure and multiple other medical problems including morbid obesity presented to hospital with worsening shortness of breath. Patient was at [facility] studies where she had progressive shortness of breath. Patient's pulse ox was low 70s upon EMS arrival. Patient was placed on 100% nonrebreather but the patient remained hypoxic. Patient was placed on BiPAP. And was transferred to ER. Patient was given breathing treatments while in the ER without much relief. Patient was subsequently intubated due to acute hypoxic respiratory failure. Currently patient is intubated and is in the medical intensive care unit. Chest x-ray showed no evidence of pneumothorax. Bilateral air space disease was present in the perihilar region in the lower lobes bilaterally right more than left. WC count was 22 on admission. Lactic acid 5.9 on admission ABG showed pH of 7.21 pCO2 63 and PaO2 88 with 100% FiO2. Patient is currently on Solu-Medrol 60 g every 6 hourly along with duo nebs and antibiotics in the form of levofloxacin and Zosyn. Cardiology and pulmonary is following. Chest x-ray this morning showed mildly improved aeration of the right lung otherwise stable 2-D echocardiogram showed ejection fraction 50-55% with severe severe mitral stenosis and severe aortic stenosis. Review of Systems Patient is currently intubated and sedated. Complete review of systems could not be apparent from the patient 05/13/2018 remains vent dependent, FiO2 50%/+5 of PEEP. Maintained on DIprovan. Telemetry sinus rhythm. Diuresing well on Lasix IV push with 24- hour I&O reflecting a negative fluid balance. Chest x-ray stable, persistent scattered infiltrates to bilateral lungs greatest in the right lung, small bilateral pleural effusions. Maintained on Zosyn and Levaquin .T-max 99.1, leukocytosis improving, sputum culture pending, preliminary blood cultures negative. Tolerating tube feeds with minimal to no residuals. IV fluids PIVL' D. 05/14/2018 Patient is currently vent dependent with assist control. Patient was tried for weaning today but patient was agitated and was sedated again. Patient is being continued on IV Lasix and Cardizem has been changed to oral. Patient went into atrial fibrillation with rapid ventricular rate last night and was started on Cardizem.. Pulmonary and cardiology is following. Chest x-ray showed slight improvement. 05/15/2018 Patient is currently on mechanical ventilator. Currently heart rate is controlled with Cardizem oral. Patient is in atrial fibrillation but heart rate is controlled. CT chest showed bilateral pleural effusion and cardiomegaly. Patient is being continued on Lasix 40 mg daily due to marginal blood pressure and severe underlying valvular heart disease. Cardiology and pulmonary is following. 05/16/2018 remains vent dependent, FiO2 40%/+5 of PEEP. Currently sinus rhythm ; A. fib with controlled ventricular rate last night. Anticoagulated on heparin drip.CPAP trial attempted, tolerated approximately 20 minutes, became tachypneic, tachycardic. Maintained on Diprivan. Chest x-ray reported stable moderate right pleural effusion Chest ultrasound reporting small right pleural effusion, less than 5 cm, not marked for thoracentesis. BUN 53, creatinine 0.7. Diuresing on Lasix IV push, 24-hour I&O reflecting a positive fluid balance, Lasix increased. 05/17/2018 ABGs revealing metabolic alkalosis. Chest x-ray reporting continued right lower lung moderate opacity and small left effusion. Diuresing well on Lasix IV push with 24-hour I&O reflecting a negative fluid balance. Maintained on vent support with FiO2 of 50/+5 of PEEP. Currently on CPAP trial. Amiodarone drip added to med regime as per cardiology. Objective - Vital Signs Vital signs: Vital Signs Temp 97.6 F 05/17/18 04:00 Pulse 75 05/17/18 17:30 Resp 19 05/17/18 17:30 BP 97/44 05/17/18 17:30 Pulse Ox 94 L 05/17/18 17:30 Intake & Output 05/16/18 05/17/18 05/17/18 18:59 06:59 18:59 Intake Total 542.911 1573.5 1178.223 Output Total 1320 1815 1580 Balance -680.000 -567.5 -401.777 Weight 113 kg 110.2 kg Intake: IV 170 332.5 150 Levofloxacin 750Mg-D5w 150 Pmx 750 mg In Dextrose/ Water 1 150ml.bag @ 100 mls/hr IVPB Q24H NIRANJAN Rx#: [id number] Piperacillin-Tazobactam 3 50 62.5 50 .375 gm In Dextrose/Water 1 50ml.bag @ 12.5 mls/hr IVPB Q8H NIRANJAN Rx#: [id number] Sodium Chloride 0.9% 1, 120 120 100 000 ml @ 10 mls/hr IV . Q24H NIRANJAN Rx#:[id number] Intake, IV Titration 200.000 500 418.223 Amount Amiodarone 450 mg In 249.97 Dextrose 5% in Water 250 ml @ 1 MG/MIN 33.33 mls/ hr IV .Q7H31M NIRANJAN Rx#: [id number] Heparin Sod,Pork in 0.45% 500 68.253 NaCl 25,000 unit In 0.45 % NaCl 1 500ml.bag @ 8.9 UNITS/KG/HR 19.93 mls/hr IV .Q24H NIRANJAN Rx#: [id number] Propofol 1,000 mg In 200.000 100.000 Empty Bag 1 bag @ Titrate IV .Q0M NIRANJAN Rx#: [id number] Tube Feeding 210 385 490 Other 60 30 120 Output: Urine 1320 1815 1580 Other: Voiding Method Indwelling Catheter Indwelling Catheter Indwelling Catheter ABP, PAP, CO, CI - Last Documented Arterial Blood Pressure 24/24 - Exam Patient is lying in the bed comfortably, no acute distress, sedated and intubated. HEENT: Normocephalic. Neck is supple. Pupils reactive. Nostrils clear. Oral cavity is moist. Ears reveal no drainage. Neck reveals no JVD, carotid bruits, or thyromegaly. CHEST EXAMINATION: Trachea is central. Symmetrical expansion. Endotracheal tube in place. Fine bibasilar crackles with Scattered rhonchi, no wheezes. Prolonged expiration. CARDIAC: Normal S1, S2 with no gallops. no murmur ABDOMEN: Soft. Bowel sounds normal. No organomegaly. No abdominal bruits. Extremities: reveal no edema. No clubbing or cyanosis Neurologically unable to fully assess, patient is currently sedated and intubated. Microbiology 05/11/18 15:56 Blood Blood Culture - Preliminary No Growth after 120 hours 05/11/18 21:09 Sputum Gram Stain - Final 05/11/18 21:09 Sputum Sputum Culture - Final - Labs CBC & Chem 7: 05/17/18 04:00 05/17/18 04:00 Labs: Abnormal Lab Results - Last 24 Hours (Table) 05/16/18 05/16/18 05/17/18 Range/Units 18:26 23:16 04:00 WBC 13.8 H (3.8-10.6) k/uL Neutrophils # 12.1 H (1.3-7.7) k/uL Lymphocytes # 0.9 L (1.0-4.8) k/uL INR (<1.2) APTT (22.0-30.0) sec ABG pH (7.35-7.45) ABG pO2 (83-108) mmHg ABG HCO3 (21-25) mmol/L ABG Total CO2 (19-24) mmol/L ABG O2 Saturation (94-97) % Potassium (3.5-5.1) mmol/L Chloride (98-107) mmol/L Carbon Dioxide (22-30) mmol/L BUN (7-17) mg/dL Glucose (74-99) mg/dL POC Glucose (mg/dL) 159 H 146 H (75-99) mg/dL Phosphorus (2.5-4.5) mg/dL Magnesium (1.6-2.3) mg/dL 05/17/18 05/17/18 05/17/18 Range/Units 04:00 04:00 05:44 WBC (3.8-10.6) k/uL Neutrophils # (1.3-7.7) k/uL Lymphocytes # (1.0-4.8) k/uL INR 1.2 H (<1.2) APTT 46.7 H (22.0-30.0) sec ABG pH (7.35-7.45) ABG pO2 (83-108) mmHg ABG HCO3 (21-25) mmol/L ABG Total CO2 (19-24) mmol/L ABG O2 Saturation (94-97) % Potassium 3.4 L (3.5-5.1) mmol/L Chloride 95 L (98-107) mmol/L Carbon Dioxide 40 H* (22-30) mmol/L BUN 53 H (7-17) mg/dL Glucose 166 H (74-99) mg/dL POC Glucose (mg/dL) 183 H (75-99) mg/dL Phosphorus 4.8 H (2.5-4.5) mg/dL Magnesium 2.5 H (1.6-2.3) mg/dL 05/17/18 05/17/18 05/17/18 Range/Units 07:29 11:41 15:25 WBC (3.8-10.6) k/uL Neutrophils # (1.3-7.7) k/uL Lymphocytes # (1.0-4.8) k/uL INR (<1.2) APTT 56.1 H (22.0-30.0) sec ABG pH 7.62 H* (7.35-7.45) ABG pO2 134 H (83-108) mmHg ABG HCO3 38 H (21-25) mmol/L ABG Total CO2 39 H (19-24) mmol/L ABG O2 Saturation 99.6 H (94-97) % Potassium (3.5-5.1) mmol/L Chloride (98-107) mmol/L Carbon Dioxide (22-30) mmol/L BUN (7-17) mg/dL Glucose (74-99) mg/dL POC Glucose (mg/dL) 171 H (75-99) mg/dL Phosphorus (2.5-4.5) mg/dL Magnesium (1.6-2.3) mg/dL Microbiology - Last 24 Hours (Table) 05/11/18 15:56 Blood Culture - Preliminary Blood No Growth after 120 hours Assessment and Plan Assessment: Acute hypoxic respiratory failure. Multifactorial secondary to pneumonia ,CHF and COPD. Currently patient is intubated. Bilateral lower lobe pneumonia. Right greater than left Acute cardio pulmonary arrest with brief loss of pulse status post CPR and a dose of epinephrine with return of spontaneous circulation. Lactic acidosis 5.9 on admission improving, recovered Sepsis secondary to pneumonia Obstructive sleep apnea on BiPAP at home Morbid obesity with BMI 44.9 with possible underlying obesity hypoventilation Acute on chronic CHF with systolic dysfunction as well as valvular heart disease History of right hemidiaphragmatic plication for unilateral paralysis History of TIA Nephrolithiasis Osteoarthritis Hypothyroidism with low free T4 level and elevated TSH. Uncontrolled History of atrial fibrillation. Paroxysmal. Currently in sinus rhythm on Rythmol GERD Gout Plan: Continue on current medication regime ,monitoring and symptomatic treatment. Vent Weaning trials in progress. Maintain nebulized bronchodilators, systemic steroids, antibiotics. Continue diuretics. Prognosis guarded given multiple complex medical issues. The impression and plan of care has been dictated as directed. : I performed a history and examination of this patient, discussed the same with the dictator. I agree with the dictator's note ,documented as a scribe. Any additional findings or plans will be noted.
[2018-05-17] MEDS ORDERED: IPRATROPIUM-ALBUTEROL 3 ML NEB ONE (23:30)
[2018-05-18 00:11] LABS: Glucose,Whole Blood 167 mg/dL (75-99)
[2018-05-18] MEDS ORDERED: methylPREDNISolone SOD SUCCI 125 MG/2 ML VIAL ONE (00:30)
[2018-05-18] MEDS ORDERED: IPRATROPIUM-ALBUTEROL 3 ML NEB ONE (00:30)
[2018-05-18] MEDS ORDERED: INSULIN ASPART 100 UNIT/ML 1 ML 10 ML VIAL SQ ONE (00:30)
[2018-05-18] MEDS ORDERED: PIPERACILLIN-TAZO 3.375 GM/50 ML PMX BAG ONE (00:30)
[2018-05-18] MEDS ORDERED: NOREPINEPHRINE 16 MG-0.9% NS PMX 250 ML IV ONE (00:30)
[2018-05-18] MEDS ORDERED: LORazepam 2 MG/ML INJ ONE (00:30)
[2018-05-18] MEDS: IPRATROPIUM-ALBUTEROL 3 ML NEB INHALATION SCH ×7 (04:29→22:55)
[2018-05-18] MEDS ORDERED: NOREPINEPHRINE 16 MG in DEXTROSE 5% IN WATER 250 ML IV SCH ×2 (05:00)
[2018-05-18 05:18] LABS: INR 1.4 (<1.2); Partial Thromboplastin Time 89.4 sec (22.0-30.0); Prothrombin Time 13.2 sec (9.0-12.0)
[2018-05-18] MEDS: methylPREDNISolone SOD SUCCI 125 MG/2 ML VIAL IV SCH ×4 (05:27→18:02)
[2018-05-18] MEDS: INSULIN ASPART 100 UNIT/ML 1 ML 10 ML VIAL SQ SCH ×4 (05:27→18:29)
[2018-05-18] MEDS: PIPERACILLIN-TAZOBACTAM 3.375 GM in DEXTROSE/WATER 1 50ML.BAG IVPB SCH ×3 (05:28→20:36)
[2018-05-18] MEDS: PROPOFOL 1,000 MG in EMPTY BAG 1 BAG IV SCH ×7 (05:30→23:15)
[2018-05-18 05:32] LABS: Basophils % (A) 0 %; Eosinophils % (A) 0 %; HCT 39.6 % (34.0-46.0); HGB 12.4 gm/dL (11.4-16.0); Lymphocytes # (A) 0.9 k/uL (1.0-4.8); Lymphocytes % (A) 3 %; MCHC 31.3 g/dL (31.0-37.0); MCV 89.3 fL (80.0-100.0); Mean Platelet Volume 7.7; Monocytes # (A) 1.2 k/uL (0-1.0); Monocytes % (A) 4 %; Neutrophils # (A) 26.3 k/uL (1.3-7.7); Neutrophils % (A) 91 %; Platelet Count 293 k/uL (150-450); RBC 4.43 m/uL (3.80-5.40); RDW 14.4 % (11.5-15.5)
[2018-05-18 05:42] LABS: WBC 28.8 k/uL (3.8-10.6)
[2018-05-18 05:52] LABS: Anion Gap 9 mmol/L; Blood Urea Nitrogen 52 mg/dL (7-17); Calcium 8.5 mg/dL (8.4-10.2); Carbon Dioxide 39 mmol/L (22-30); Chloride 93 mmol/L (98-107); Glucose 202 mg/dL (74-99); Phosphorus 4.6 mg/dL (2.5-4.5); Sodium 141 mmol/L (137-145)
[2018-05-18 05:54] LABS: Magnesium 2.6 mg/dL (1.6-2.3)
[2018-05-18 06:02] LABS: Potassium 2.9 mmol/L (3.5-5.1)
[2018-05-18] MEDS ORDERED: Potassium Replacement Protocol 1 EACH MISC MISCELLANE PRN ×2 (06:04→17:57)
[2018-05-18 06:17] LABS: Glucose,Whole Blood 200 mg/dL (75-99)
[2018-05-18] MEDS: LEVOTHYROXINE 50 MCG TAB PO SCH (06:41)
[2018-05-18] MEDS: POTASSIUM BICARBONATE/CIT AC 20 MEQ TABLET.EFF NG-TUBE SCH ×5 (07:08→20:28)
[2018-05-18 07:40] LABS: ABG Base Excess 16.6 mmol/L; ABG PCO2 49 mmHg (35-45); ABG PH 7.51 (7.35-7.45); ABG PO2 99 mmHg (83-108); ABG TCO2 41 mmol/L (19-24)
--- NOTE | 2018-05-18 07:46 | P.PN ---
Subjective Progress Note Date: 05/18/18 Principal diagnosis: Acute hypoxic respiratory failure This is a 77-year-old female patient who was admitted to the intensive care unit with cardiopulmonary arrest. Currently the patient is intubated and she is on ventilator. The patient was in her usual state of health until yesterday when she was at the [facility] and she started experiencing shortness of breath. She didn't go home and she did to back-to- back breathing treatment without any improvement in her symptoms. At that point the patient called her daughter came in and found her mother in respiratory distress where at that point EMS was called and the patient was hypoxic where she was brought to the emergency room. In the ER the patient did have cardiopulmonary arrest with PDA and she received 2 epinephrine and she was intubated at that point and she was brought to the intensive care unit. Currently the patient is intubated unit nit. Currently the patient is intubated but remain hemodynamically stable and she is not on any vasopressors. The patient does have history of obstructive sleep apnea and she uses CPAP machine. She is obese. The side that interim of cardiac history she does have history of mild nonobstructive coronary artery disease based on heart catheterization was performed in 2013. The patient underwent an echocardiogram bedside today and that revealed normal left ventricle systolic function with hypertensive heart disease and evidence off severe mitral stenosis with a mean gradient across the mitral valve 20 mmHg as well as moderate to severe aortic stenosis with a mean gradient across aortic valve of 30 mmHg. The chest x-ray showed what it seems to be possible bilateral pneumonia with possible component of congestive heart failure. The BNP came in to be around 1000. The EKG showed sinus rhythm with sinus tachycardia and nonspecific changes in the lateral leads. The first set of troponin came in to be normal and we'll obtain 2 more sets of troponin. The lactic acid is elevated. On follow-up with the patient today, she is doing worse than yesterday. Now she is sedated. Hemodynamically she is unstable and she is requiring small dose of vasopressors. She is in atrial fibrillation was controlled heart rate. I am going to switch her to amiodarone by mouth 400 mg by mouth twice a day. Also we'll continue anticoagulation was heparin and Coumadin. The chest x-ray is definitely looking worse compared to yesterday. I ordered an ultrasound of the right chest to see if she benefits from pleurocentesis. Objective - Vital Signs Vital signs: Vital Signs Temp 97.5 F L 05/18/18 04:00 Pulse 85 05/18/18 07:04 Resp 15 05/18/18 07:00 BP 124/53 05/18/18 07:00 Pulse Ox 98 05/18/18 07:00 Intake & Output 05/17/18 05/18/18 05/18/18 18:59 06:59 18:59 Intake Total 5696.984 7651.588 45 Output Total 1965 1155 75 Balance -581.777 377.588 -30 Weight 110 kg Intake: IV 160 360 10 Levofloxacin 750Mg-D5w 150 Pmx 750 mg In Dextrose/ Water 1 150ml.bag @ 100 mls/hr IVPB Q24H NIRANJAN Rx#: [id number] Piperacillin-Tazobactam 3 50 100 .375 gm In Dextrose/Water 1 50ml.bag @ 12.5 mls/hr IVPB Q8H NIRANJAN Rx#: [id number] Sodium Chloride 0.9% 1, 110 110 10 000 ml @ 10 mls/hr IV . Q24H NIRANJAN Rx#:[id number] Intake, IV Titration 518.223 587.588 Amount Amiodarone 450 mg In 249.97 55.841 Dextrose 5% in Water 250 ml @ 1 MG/MIN 33.33 mls/ hr IV .Q7H31M NIRANJAN Rx#: [id number] Heparin Sod,Pork in 0.45% 68.253 431.747 NaCl 25,000 unit In 0.45 % NaCl 1 500ml.bag @ 8.9 UNITS/KG/HR 19.93 mls/hr IV .Q24H NIRANJAN Rx#: [id number] Propofol 1,000 mg In 200.000 100.000 Empty Bag 1 bag @ Titrate IV .Q0M NIRANJAN Rx#: [id number] Tube Feeding 525 525 35 Other 180 60 Output: Urine 1965 1155 75 Other: Voiding Method Indwelling Catheter Indwelling Catheter ABP, PAP, CO, CI - Last Documented Arterial Blood Pressure - Constitutional General appearance: Present: no acute distress - Respiratory Respiratory: right: diminished - Cardiovascular Rhythm: irregularly irregular Heart sounds: normal: S1, S2 - Labs CBC & Chem 7: 05/18/18 04:21 05/18/18 04:21 Labs: Abnormal Lab Results - Last 24 Hours (Table) 05/17/18 05/17/18 05/17/18 Range/Units 11:41 15:25 17:55 WBC (3.8-10.6) k/uL Neutrophils # (1.3-7.7) k/uL Lymphocytes # (1.0-4.8) k/uL Monocytes # (0-1.0) k/uL PT (9.0-12.0) sec INR (<1.2) APTT 56.1 H (22.0-30.0) sec Potassium (3.5-5.1) mmol/L Chloride (98-107) mmol/L Carbon Dioxide (22-30) mmol/L BUN (7-17) mg/dL Glucose (74-99) mg/dL POC Glucose (mg/dL) 171 H 188 H (75-99) mg/dL Phosphorus (2.5-4.5) mg/dL Magnesium (1.6-2.3) mg/dL 05/18/18 05/18/18 05/18/18 Range/Units 00:10 04:21 04:21 WBC 28.8 H* (3.8-10.6) k/uL Neutrophils # 26.3 H (1.3-7.7) k/uL Lymphocytes # 0.9 L (1.0-4.8) k/uL Monocytes # 1.2 H (0-1.0) k/uL PT (9.0-12.0) sec INR (<1.2) APTT (22.0-30.0) sec Potassium 2.9 L* (3.5-5.1) mmol/L Chloride 93 L (98-107) mmol/L Carbon Dioxide 39 H (22-30) mmol/L BUN 52 H (7-17) mg/dL Glucose 202 H (74-99) mg/dL POC Glucose (mg/dL) 167 H (75-99) mg/dL Phosphorus 4.6 H (2.5-4.5) mg/dL Magnesium 2.6 H (1.6-2.3) mg/dL 05/18/18 05/18/18 Range/Units 04:21 06:16 WBC (3.8-10.6) k/uL Neutrophils # (1.3-7.7) k/uL Lymphocytes # (1.0-4.8) k/uL Monocytes # (0-1.0) k/uL PT 13.2 H (9.0-12.0) sec INR 1.4 H (<1.2) APTT 89.4 H (22.0-30.0) sec Potassium (3.5-5.1) mmol/L Chloride (98-107) mmol/L Carbon Dioxide (22-30) mmol/L BUN (7-17) mg/dL Glucose (74-99) mg/dL POC Glucose (mg/dL) 200 H (75-99) mg/dL Phosphorus (2.5-4.5) mg/dL Magnesium (1.6-2.3) mg/dL Microbiology - Last 24 Hours (Table) 05/11/18 15:56 Blood Culture - Final Blood No Growth after 144 hours Assessment and Plan Assessment: Assessment #1 acute respiratory failure #2 cardiopulmonary arrest #3 possible bilateral pneumonia #4 congestive heart failure secondary to systolic dysfunction and valvular heart disease #5 valvular heart disease with severe mitral stenosis and moderate to severe aortic stenosis #6 obstructive sleep apnea #7 morbid obesity Plan #1 currently the patient is intubated and she is on ventilator. Lock Expert on the case #2 she is getting treated for bilateral pneumonia #3 switch the patient from amiodarone IV to amiodarone by mouth #4 continue IV Lasix #5 continue anticoagulation with heparin and Coumadin #6 follow-up with the patient.
[2018-05-18] MEDS: HEPARIN SOD,PORK IN 0.45% NACL 25,000 UNIT in 0.45% NACL 1 500ML.BAG IV SCH (08:18)
[2018-05-18] MEDS: AMIODARONE 200 MG TAB PO SCH ×2 (08:19→21:50)
[2018-05-18] MEDS: DILTIAZEM ORAL 60 MG TAB PO SCH ×3 (08:20→21:50)
[2018-05-18] MEDS: CHLORHEXIDINE GLUCONATE 15 ML CUP MUCOUS MEM SCH ×2 (08:20→21:50)
[2018-05-18] MEDS: PANTOPRAZOLE 40 MG/10 ML VIAL IVP SCH (08:21)
[2018-05-18] MEDS: FUROSEMIDE 10 MG/ML 4 ML VIAL IV SCH ×2 (08:21→16:32)
[2018-05-18] MEDS: LORazepam 2 MG/ML INJ IV PRN ×3 (08:25→20:48)
--- NOTE | 2018-05-18 08:25 | XR ---
EXAMINATION TYPE: XR chest 1V DATE OF EXAM: 05/18/2018 CLINICAL HISTORY: Difficulty breathing progress study. TECHNIQUE: Single AP portable semiupright view of the chest is obtained. COMPARISON: Chest x-ray from one day earlier and older studies. CT chest from 3 days earlier. FINDINGS: An endotracheal tube, orogastric tube, and left-sided subclavian central venous catheter a re all stable in appearance. There is persistent bibasilar opacity consistent with small to moderate-sized right greater than left pleural effusions and associated atelectasis and/or infiltrate. Cardiac silhouette size is stable an d mildly enlarged with atherosclerotic aorta. Mild central vascular congestion is felt to remain pres ent. Osseous structures are intact. IMPRESSION: Overall stable findings, correlate for CHF exacerbation as there is mild cardiomegaly w ith mild central vascular congestion and small to moderate-sized right greater than left pleural effu sions with associated bibasilar atelectasis and/or infiltrate all redemonstrated.
--- NOTE | 2018-05-18 08:35 | US ---
EXAMINATION TYPE: US chest DATE OF EXAM: 05/18/2018 COMPARISON: US 2 days earlier. Chest x-ray earlier today. CT chest 3 days earlier. CLINICAL HISTORY: norma pleural effusion. Bilateral pleural effusions, obese patient, patient on vent, exam done portable in ICU. EXAM MEASUREMENTS: Right Pleural Effusion fluid pocket: 2.0 cm Right skin to fluid thickness: 3.8 cm Left Pleural Effusion fluid pocket: 3.2 cm Left skin to fluid thickness: 5.1 cm Right side not marked for possible thoracentesis outside the dept. Left side not marked for possible thoracentesis outside the dept. Pulmonologists are able to review the images in the patient?s EMR. The 10 images saved today redemonstrates small bilateral pleural effusions without significant change in size from prior recent ultrasound or CT. IMPRESSIONS: As above, right greater than left bibasilar opacities on chest x-ray favor predominantly consolidation and/or atelectasis with only small pleural effusion or fluid components.
[2018-05-18 11:59] LABS: Glucose,Whole Blood 187 mg/dL (75-99)
[2018-05-18 12:47] LABS: Glucose,Whole Blood 205 mg/dL (75-99)
--- NOTE | 2018-05-18 13:01 | CDI ---
Documentation Clarification Form Date: CDS: Yesi Munoz RN Admit Date: 05/11/18 Patient Name: Suzi Tuttel ATTENTION: The Clinical Documentation Specialists (CDI) and [facility] Coding Staff appreciate your assistance in clarifying documentation. Please respond to the clarification below the line at the bottom and electronically sign. The CDI & [facility] Coding staff will review the response and follow-up if needed. Please note: Queries are made part of the Legal Health Record. If you have any questions, please contact the author of this message via ITS. Dr. Shlomo Calderon, Can you please render you opinion on the following? Patient history/risk factors: sleep apnea, hypothyroidism, valvular heart disease with aortic stenosis, CHF , morbid obesity, asthma, angina, COPD, GERD, HTN, hyperlipidemia, pneumonia, arthritis, gout, acute cardio pulmonary arrest, lactic acidosis, sepsis, acute on chronic CHF with systolic Presented with respiratory failure, unresponsive, Pt went into cardiac arrest. Sepsis and pneumonia are documented throughout the chart Clinical Indicators: Vitals on admission:T 97.9, P 116, R 16, 210/100, 82% CPAP Lab on admission: WBC 22.9, HCT 49.0, PLT 461, NEUTR 11.60, LYMP 9.85, EOSIN 0.92 ABG PH 7.21 PC02 63 TOT C02 27 , BUN 25C LLACTIC 5.9 2.9, MAG 2.5, AST 37, ALK PHOS 143, BNP 200, TSH 7.970, FREE T4 0.70 Patient was Hypotensive 05/11, 16, 17 & 18 Treatment: Norepinephrine, Amiodarone, mechanical ventilation Monitor vitals and Labs In your professional opinion, can you please specify the type of shock if known ? Septic Shock ruled in Septic shock ruled out Any associated organ failure Cardiogenic Shock Cause Other, please specify Unable to determine Please continue to document in your progress notes, under the line below and/ or in the discharge summary in order to capture severity of illness and risk of mortality. Include clinical findings that support your diagnosis. MTDD
--- NOTE | 2018-05-18 13:14 | P.PN ---
Subjective Progress Note Date: 05/18/18 Principal diagnosis: Acute hypoxic respiratory failure secondary to bilateral lower lobe pneumonia and congestive heart failure. A 77-year-old morbidly obese female patient with known history of obstructive sleep apnea maintained on BiPAP therapy on outpatient basis and addition to chronic bronchial asthma and significant limitation in exercise capacity secondary to her age body habitus and comorbidities, presented to the hospital because of an acute respiratory failure. I interviewed the daughter. Apparently the patient was at [employer] studies and she was getting progressively more short of breath. After arriving home she did [id number] breathing treatments without much relief. Ultimately she called her daughter who arrived to the scene and she saw that her mother was having more chest congestion, respirator distress, wheezing, and she was headed into respiratory failure. EMS was called to the scene. Upon arrival of EMS, the patient's pulse ox was in the low 70s pH was placed on on the percent nonrebreather facemask as she remained hypoxic and following that the patient was placed on BiPAP. The patient was moved to the emergency department. The patient was seen immediately after she arrived the ED. She was hypoxic, and she was cold and clammy and salmon color and cyanotic. As we were getting ready to intubate the patient, the patient lost pulse briefly and she became bradycardic. She went to the [facility]. She received a dose of epinephrine. She was started on CPR. Within 1 minute she recovered her pulse and the blood pressure. She was intubated and placed on a mechanical ventilator. She currently has a 7.[address] She is an assist-control mode of ventilation at the rate of 26, tidal volume of 400, FiO2 of 100% and a PEEP of 5. Immediately postintubation the blood pressure improved and she had a systolic above 200. She was started on propofol for sedation and her current systolic blood pressure in the 150s. A Poe catheter was inserted. The peak pressures in the 38-40 range. Static pressures around 32. The patient has significant bronchospasm and wheezing. A chest x-ray was done post intubation and post line placement and the chest x- ray showed no evidence of any pneumothorax. Bilateral air space disease was present in the perihilar regions in the lower lobes bilaterally right more than left. ET tube and NG tube were in good location. The patient also had a left subclavian triple-lumen catheter that was inserted without any complications. She was started on IV Zosyn knowing that the patient also briefly aspirated and vomited at the time of the intubation. Labs showed a white cell count of 22. The postintubation blood gas showed a pH of 7.21 with a pCO2 of 63 and pO2 of 88 and this blood gases on 100% FiO2. Initial lactic acid level was at 5.9 On today's evaluation of 05/12/2018 I'm seeing this patient for a follow-up. The patient remains intubated on a mechanical ventilator. Sedated with Diprivan at 30 mics per KG per minute. She is well sedated and she is synchronous with the mechanical ventilator. She is an assist-control mode of ventilation at the rate of 26 with a tidal volume of 400 and FiO2 of 60% with a PEEP of 5. The patient's chest x-ray from today is showing some mild improvement examination of the right midlung field. Otherwise the rest of the signs are all stable. ET tube is in a good location. The patient has consolidation of the right lung involving the right apex and the right lung base. There is also some perihilar pulmonary infiltrates bilaterally addition to some cardiomegaly. There is chronic elevation of the right hemidiaphragm. The blood gases from today showed a pH of 7.33 with a pCO2 of 47 and pO2 of 77 and it wasn't an FiO2 of 60%. The lactic acid level is down to 1.9 from 2.9 in addition. The patient was given briefly a sedation holiday and she was able to follow commands, simple commands and following that the patient was placed back on sedation. She did not require any pressors and the patient is maintaining home blood pressure. She was seen by cardiology today. Echocardiogram was done. The echo showed normal LV function with hypertensive heart disease and evidence of severe mitral stenosis with a mean gradient across the mitral valve of 20 mmHg as well as moderate to severe aortic stenosis with a mean gradient across the valve of 30 mmHg. The patient's cardiac rhythm is still sinus. She remains on broad-spectrum antibiotic coverage with a combination of Zosyn and Levaquin. The sputum cultures still negative for now. Blood cultures have been sent and the results are still negative for now. White cell count is elevated at 22.3. The patient was started on Lasix by cardiology 40 mg IV every 24 hours. She is also normal state rate of 40 mL an hour for now. On today's evaluation of 05/13/2018, the patient remains intubated on a mechanical ventilator. She is lightly sedated and the patient can easily aroused from propofol infusion. She remains on a mechanical ventilator the same vent setting. The blood gas from today, while on the 50% FiO2 showed a pH of 7.39 with a pCO2 of 40 and a pO2 of 81. White cell count is down to 17. The chest x-ray from today is showing persistent bilateral pulmonary infiltrates most on the right upper lobe and the right lower lobe. There is also small bilateral pleural effusion and cardiomegaly. ET tube remains in a good location. Cultures of been all negative thus far. The patient is afebrile and the patient is hemodynamically stable. Also, echocardiogram showed moderate to severe mitral stenosis and aortic valve stenosis and the patient was started on diuresis yesterday. I think we need to diurese this patient more aggressively over the next 24 hours. She'll feeds are running and the patient is tolerating her tube feeds without any major difficulties. Patient is producing adequate amount of urine output. Cardiac rhythm remains sinus. No other significant events over the past 24 hours. On 05/14/2089 seeing this patient for a follow-up. The patient remains intubated on a mechanical ventilator. She is on gentle sedation and she can easily aroused from her sedation and she can follow commands and answer questions appropriately. Her chest x-ray from today is showing some improvement in the aeration of the right lung. The patient has developed a consolidation and effusion the right lung base. The upper lobes are more clear. ET tube is in a good location. She remains on a mechanical ventilator. Assist-control mode of ventilation. She has a rate of 26, tidal volume of 400 , FiO2 is still at 60% with a PEEP of 5. Her blood gases from today showed a pH of 7.39 , pCO2 of 49 and pO2 of 81. I doubt the FiO2 down to 50%. I asked the nursing staff to stop the sedation completely and we checked her weaning parameters and the weaning parameters showed a NIF of -35 and vital Of 935 and the rapid shallow breathing index was less than 100. Based on that, the patient was given a spelled his breathing trial. She lasted for a total of 30 minutes. Following that she became tachycardic and cachectic. Blood gases obtained and the patient had a pH of 7.48 with a pCO2 of 48 and pO2 of 78. Nevertheless, based on ongoing shortness of breath, we decided not to extubate the patient knowing that she was not quite ready for extubation. Noted over the past 24 hours to monitor the patient has significant cardiac events. The patient went into an SVT. She was a rapid ventricular response. She had to be cardioverted. Subsequently she went into atrial fibrillation/flutter rhythm. Her rate is controlled for now. Nevertheless the patient is on Cardizem 30 mg by mouth 3 times a day. She was also placed on IV heparin by cardiology. As mentioned earlier she has valvular heart disease with severe mitral regurgitation stenosis. The diuretics have been cut down to 40 g IV Lasix every 12 hours. The net fluid balance is -2 L for yesterday. No fever. No chills. White cell count is down to 12.6. On 05/15/2018, patient is being seen in follow-up. He remains on a mechanical ventilator. Still on the same vent setting within assist-control mode at the rate of 26 with an FiO2 of 50% with a tidal volume of 400 and a PEEP of 5. The blood gas showed a pH of 7.45 with a pCO2 of 51 and pO2 of 91. No major improvement of the chest x-ray finding and the patient continues to have significant amount of bilateral airspace disease and bilateral pleural effusion more so on the right. The patient is in a controlled rhythm with atrial fibrillation. The patient is diuresing gently with IV Lasix. Unable to do aggressively diurese this patient because of evolving hypotension. The patient has severe mitral stenosis and approximately 2 fibrillation. The patient is also on broad-spectrum antibiotic coverage. She was given a sedation holiday and this point is breathing trial which she was able to tolerate for quite some time and following that she became short of breath and tachycardic and tachypneic and based on that the child was discontinued and the patient was not extubated. She is in a negative fluid balance. The net fluid balance for yesterday was -1.6 L. We are still diuresing this patient and she has a good urine output. She is afebrile. She is tolerating her tube feeds. She is very easily arousable and currently she is sedated with Diprivan. Overall no major changes and conditions compared to yesterday. I'm going to proceed with a CAT scan of the chest to characterized the pulmonary abnormalities. At the same time the patient was started on anticoagulation with warfarin. On 05/16/2018, patient was evaluated, and she remains on mechanical ventilation. Her ventilator settings are assist control rate of 26, tidal volume of 400, FiO2 of 50%, and PEEP of 5. ABG showed a pO2 of 78 pCO2 of 51 pH of 7.48. Patient is awake, responsive to all verbal commands, follows all instructions, hence I took her off propofol, and recommended a spontaneous breathing trial. Placed on pressure support of 10 with CPAP, however she only lasted about 20 minutes and she was noted to have increased respiratory rate, tachycardia, and she was developing a bit of respiratory distress. Hence the patient was switched back to assist control mode of mechanical ventilation. And I felt that she is not ready to be weaned. Ultrasound of the chest was done, there was evidence of less than 5 cm pocket of fluid on the right pleural space, hence I did not feel the patient would benefit much from thoracentesis, not to mention that is associated with thoracentesis considering the amount of fluid is small. All labs were reviewed, her renal profile seems to be relatively normal however her BUN is 53 creatinine is 0.70, more of a prerenal type of azothemia. CBC is relatively normal with minimal leukocytosis. Heparin is therapeutic for her atrial fibrillation. Hemodynamically, the patient is stable , and not requiring any norepinephrine at this point. Propofol is presently on hold. Nutrition is also address, and the patient is being fed with nasogastric tube/enteral feeding. Fluid balance noted over the last 24 hours to be about 90 mL positive. Hence the Lasix dose was increased to twice a day. On 05/17/2018, patient remains on mechanical ventilation, ventilator settings at present are tidal volume of 400, assist control rate of 16 FiO2 of 50% and PEEP of 5. ABG showed a pO2 of 134 pCO2 of 37 pH of 7.62. Patient is not breathing beyond the ventilator settings, hence I cut down her rate from 20-16. And I felt that the patient has significant metabolic alkalosis, but probably this patient's baseline pCO2 is normally in the 50s or 60s to begin with. So the alkalosis were noting is metabolic and respiratory in nature or alkalosis post correction of respiratory acidosis. At any rate we'll continue diuretics, her chest x-ray continues to show bilateral pleural effusion especially on the right side, but the ultrasound did not show enough fluid to safely perform a thoracentesis the pocket was less than 5 cm. Fluid balance is negative about 1258 in the last 24 hours. Urine output remains excellent. Renal functioning is about the same with a BUN of 53 creatinine of 0.70. Patient was placed on amiodarone by cardiology, and she is on heparin for atrial fibrillation. WBC count is 15.8 hemoglobin is 12.5. Patient is on 50 g of propofol, but she is awake, following all instructions, and I suggested that we discontinue propofol , wake of the patient, and given a trial of pressure support of 10 and CPAP. If tolerated we could potentially consider extubating the patient to BiPAP. If not tolerated a sugar go back on assist control mode of mechanical ventilation, higher dose of propofol to sedate her a bit more, and wait for another day to address weaning all over again. Patient was reevaluated today on 05/18/2018, remains on mechanical ventilation, ventilator settings are about the same, unchanged from yesterday. ABG showed a pO2 of 99 pCO2 of 49 pH of 7.51. Potassium is a bit low being corrected as per protocol. BUN remains 52 creatinine 0.66, patient remains on diuretics, repeat ultrasound of the chest continues to show very small tiny right-sided pleural effusion. Not large enough to consider thoracentesis. Chest x-ray is suggestive of central vascular congestion with right basilar consolidation, and small pleural effusion. Patient was taken off propofol, kept on assist control mode of mechanical ventilation, however she was noted to be extremely agitated and restless and tachypneic as well as tachycardic. Hence placed back on propofol, and clearly she is not amenable at this point. Discussed her condition with family at bedside, and we felt at this point patient may be ready for tracheostomy and PEG tube placement. She is going to be extremely difficult to wean. Radius attempts to wean the patient have failed and the patient has been now on mechanical ventilation for 8 days. Remains on the same medications, diuretics, amiodarone, DuoNeb updrafts, remains on antibiotics in the form of Levaquin and Zosyn. Cultures have been nondiagnostic, more sputum cultures were sent today. Nutrition-hassan the patient is receiving enteral feeding. She remains also on GI and DVT prophylaxis. Objective - Vital Signs Vital signs: Vital Signs Temp 97.5 F L 05/18/18 08:00 Pulse 68 05/18/18 11:37 Resp 25 H 05/18/18 08:30 BP 114/62 05/18/18 08:30 Pulse Ox 96 05/18/18 08:30 Intake & Output 05/17/18 05/18/18 05/18/18 18:59 06:59 18:59 Intake Total 3758.114 6635.588 259.208 Output Total 1965 1155 400 Balance -581.777 377.588 -140.792 Weight 110 kg Intake: IV 160 360 30 Levofloxacin 750Mg-D5w 150 Pmx 750 mg In Dextrose/ Water 1 150ml.bag @ 100 mls/hr IVPB Q24H NIRANJAN Rx#: [id number] Piperacillin-Tazobactam 3 50 100 .375 gm In Dextrose/Water 1 50ml.bag @ 12.5 mls/hr IVPB Q8H NIRANJAN Rx#: [id number] Sodium Chloride 0.9% 1, 110 110 30 000 ml @ 10 mls/hr IV . Q24H NIRANJAN Rx#:[id number] Intake, IV Titration 518.223 587.588 94.208 Amount Amiodarone 450 mg In 249.97 55.841 Dextrose 5% in Water 250 ml @ 1 MG/MIN 33.33 mls/ hr IV .Q7H31M NIRANJAN Rx#: [id number] Heparin Sod,Pork in 0.45% 68.253 431.747 NaCl 25,000 unit In 0.45 % NaCl 1 500ml.bag @ 8.9 UNITS/KG/HR 19.93 mls/hr IV .Q24H NIRANJAN Rx#: [id number] Propofol 1,000 mg In 200.000 100.000 94.208 Empty Bag 1 bag @ Titrate IV .Q0M NIRANJAN Rx#: [id number] Tube Feeding 525 525 105 Other 180 60 30 Output: Urine 1965 1155 400 Other: Voiding Method Indwelling Catheter Indwelling Catheter Indwelling Catheter ABP, PAP, CO, CI - Last Documented Arterial Blood Pressure 24/24 - Exam Physical Exam: Revealed a 77-year-old female, obese, on mechanical ventilation, in no distress while on assist control mode of mechanical ventilation. Head: Atraumatic, normocephalic. Endotracheal tube and orogastric tube are noted to be intact. Significant. Secretions noted from the endotracheal tube. HEENT:[Neck is supple.] [No neck masses.] [No thyromegaly.] [No JVD.] PERRLA, EOMI, moist mucous membranes, no icterus was noted. Left sided subclavian triple-lumen catheter is noted to be in place. Chest: [Symmetrical expansion, diminished breath sounds at the bases especially at the left base, with crackles. No rhonchi, no wheezes.] Cardiac Exam: [Irregular irregular rhythm Normal S1 and S2, no S3 gallop, no murmur.] Abdomen: Obese, [Soft, nontender, no megaly, no rebound, no guarding, normal bowel sounds.] Extremities: [No clubbing, no edema, no cyanosis.] Neurological Exam: [No focal neurologic deficit.] Alert oriented 3, Psychiatric: Normal mood affect and mental status examination. When off propofol. But noted to be extremely tachypneic tachycardic and agitated. Lymphatics: No lymphadenopathy. Skin: No rashes. Musculoskeletal: No limitations in range of motion. - Labs CBC & Chem 7: 05/18/18 04:21 05/18/18 04:21 Labs: Abnormal Lab Results - Last 24 Hours (Table) 05/17/18 05/17/18 05/18/18 Range/Units 15:25 17:55 00:10 WBC (3.8-10.6) k/uL Neutrophils # (1.3-7.7) k/uL Lymphocytes # (1.0-4.8) k/uL Monocytes # (0-1.0) k/uL PT (9.0-12.0) sec INR (<1.2) APTT 56.1 H (22.0-30.0) sec ABG pH (7.35-7.45) ABG pCO2 (35-45) mmHg ABG HCO3 (21-25) mmol/L ABG Total CO2 (19-24) mmol/L ABG O2 Saturation (94-97) % Potassium (3.5-5.1) mmol/L Chloride (98-107) mmol/L Carbon Dioxide (22-30) mmol/L BUN (7-17) mg/dL Glucose (74-99) mg/dL POC Glucose (mg/dL) 188 H 167 H (75-99) mg/dL Phosphorus (2.5-4.5) mg/dL Magnesium (1.6-2.3) mg/dL 05/18/18 05/18/18 05/18/18 Range/Units 04:21 04:21 04:21 WBC 28.8 H* (3.8-10.6) k/uL Neutrophils # 26.3 H (1.3-7.7) k/uL Lymphocytes # 0.9 L (1.0-4.8) k/uL Monocytes # 1.2 H (0-1.0) k/uL PT 13.2 H (9.0-12.0) sec INR 1.4 H (<1.2) APTT 89.4 H (22.0-30.0) sec ABG pH (7.35-7.45) ABG pCO2 (35-45) mmHg ABG HCO3 (21-25) mmol/L ABG Total CO2 (19-24) mmol/L ABG O2 Saturation (94-97) % Potassium 2.9 L* (3.5-5.1) mmol/L Chloride 93 L (98-107) mmol/L Carbon Dioxide 39 H (22-30) mmol/L BUN 52 H (7-17) mg/dL Glucose 202 H (74-99) mg/dL POC Glucose (mg/dL) (75-99) mg/dL Phosphorus 4.6 H (2.5-4.5) mg/dL Magnesium 2.6 H (1.6-2.3) mg/dL 05/18/18 05/18/18 05/18/18 Range/Units 06:16 07:38 11:58 WBC (3.8-10.6) k/uL Neutrophils # (1.3-7.7) k/uL Lymphocytes # (1.0-4.8) k/uL Monocytes # (0-1.0) k/uL PT (9.0-12.0) sec INR (<1.2) APTT (22.0-30.0) sec ABG pH 7.51 H (7.35-7.45) ABG pCO2 49 H (35-45) mmHg ABG HCO3 40 H* (21-25) mmol/L ABG Total CO2 41 H (19-24) mmol/L ABG O2 Saturation 98.0 H (94-97) % Potassium (3.5-5.1) mmol/L Chloride (98-107) mmol/L Carbon Dioxide (22-30) mmol/L BUN (7-17) mg/dL Glucose (74-99) mg/dL POC Glucose (mg/dL) 200 H 187 H (75-99) mg/dL Phosphorus (2.5-4.5) mg/dL Magnesium (1.6-2.3) mg/dL 05/18/18 Range/Units 12:45 WBC (3.8-10.6) k/uL Neutrophils # (1.3-7.7) k/uL Lymphocytes # (1.0-4.8) k/uL Monocytes # (0-1.0) k/uL PT (9.0-12.0) sec INR (<1.2) APTT (22.0-30.0) sec ABG pH (7.35-7.45) ABG pCO2 (35-45) mmHg ABG HCO3 (21-25) mmol/L ABG Total CO2 (19-24) mmol/L ABG O2 Saturation (94-97) % Potassium (3.5-5.1) mmol/L Chloride (98-107) mmol/L Carbon Dioxide (22-30) mmol/L BUN (7-17) mg/dL Glucose (74-99) mg/dL POC Glucose (mg/dL) 205 H (75-99) mg/dL Phosphorus (2.5-4.5) mg/dL Magnesium (1.6-2.3) mg/dL Microbiology - Last 24 Hours (Table) 05/11/18 15:56 Blood Culture - Final Blood No Growth after 144 hours Assessment and Plan Assessment: 1 acute hypoxic respiratory failure with bilateral lower lobe pneumonia and possibly component of diastolic CHF. The patient presented emergency department with acute respiratory arrest, intubated and placed on a mechanical ventilator On 05/12/2018 the patient remains intubated on a mechanical ventilator. There is improvement in oxygenation and FiO2 has been drop down to 60%. There is also further weaning the FiO2 down knowing that the patient's pulse ox and the pO2 is above 100. Meanwhile, the sputum cultures still pending. The patient is on a broad-spectrum antibiotic coverage with a combination of Zosyn and Levaquin. The patient is still sedated on a mechanical ventilator, intubated. On 05/13/2018, the patient remains on a mechanical ventilator. The patient is oxygenating and ventilating well. She is on the same antibiotic coverage. There is persistent but the pulmonary consolidation and infiltrates most on the right. The patient is on Zosyn and Levaquin the patient will be started on diuretics should there be a component of interstitial/pulmonary edema in association with his underlying pneumonia. Cultures of been all negative thus far. The patient remains hemodynamically stable. On 05/14/2018, the patient is still on a mechanical ventilator. There is some improvement in the chest x-ray findings and the patient is not ready for extubation yet. Hemodynamically stable for now. Overnight the patient had issues with SVT and currently she is in atrial fibrillation with a controlled rate. She is being diuresed gently. She is also being covered with broad- spectrum antibiotics regarding bilateral pneumonia. The sputum culture is negative for now. On 05/15/2018 I'm not seeing any major change in the patient's chest x-ray finding. She still has bilateral airspace disease probably combination of pneumonia fluids. The patient initially suspected to have pneumonia. Subsequently she was found to have severe mitral stenosis and regurgitation which probably is contributing to her respiratory failure. She has severe valvular heart disease and please refer to the echocardiogram results. She remains on broad-spectrum antibiotics. CAT scan of the chest was noted and reviewed. On 05/16/2018, and attempt of weaning was done, patient was placed on a pressure support of 10 and CPAP, noted to develop significant tachypnea, tachycardia, hence no more attempts were made, patient was placed back on assist control mode of mechanical ventilation. 2 bilateral lower lobe pneumonia with airspace disease and consolidations. Rule out aspiration pneumonia. Rule out community-acquired. Cultures of been negative thus far. 3 acute cardiac pulmonary arrest with brief loss in progress where the patient received CPR and received a dose of epinephrine with return of spontaneous circulation. Currently on no pressors. No signs of any hypoxic encephalopathy and the patient was given a brief sedation holiday and she was able to follow simple commands without any major difficulties 4 lactic acidosis secondary to above, improving and recovered 5 leukocytosis secondary to above, improving, and recovered 6 morbid obesity with a BMI of 43.4 7 obstructive sleep apnea 8 severe persistent bronchial asthma 9 history of right hemidiaphragmatic plication for unilateral paralysis 10 moderate to severe severe aortic stenosis and mitral stenosis, with a preserved LV function as evident on the echocardiogram 11 history of TIA 12 nephrolithiasis 13 gouty arthritis 14 hypothyroidism 13 hypertension 16 hyperlipidemia 17 history of atrial fibrillation on Rythmol and her current rhythm is back in atrial fibrillation with a controlled rate. 18 acid reflux 19 gout 20 degenerative arthritis 21 episodes of SVT, cardioverted 22 right sided pleural effusion, seen on ultrasound to be less than 5 cm, not safe to perform thoracentesis. Recommendation: Continue present supportive care measures, patient is clearly not ready for any weaning today, she was not doing well even on assist control mode of mechanical ventilation, and previous attempts to wean the patient has always failed. I will arrange for the patient to undergo tracheostomy and PEG tube placement by Dr. Melton. Hopefully this could be done in the next couple of days. Family is agreeable to proceed with tracheostomy and PEG tube placement. Critical care time is 35 minutes. Time with Patient: Greater than 30
[2018-05-18] MEDS: SODIUM CHLORIDE 0.9% 1,000 ML IV SCH (13:15)
[2018-05-18] MEDS ORDERED: MD COMMUNICATION TO PHARMACY 1 EACH MISC PO PRN (13:55)
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
[2018-05-18] MEDS: LACTULOSE 20 GM/30 ML CUP PO SCH ×2 (16:32→21:49)
--- NOTE | 2018-05-18 17:03 | P.PN ---
Subjective Progress Note Date: 05/18/18 Prognosis note being dictated for Dr. Calderon Interval history:Patient is on 73-year-old female with a known history of obstructive sleep apnea on biPAP, Hypothyroidism, valvular heart disease with aortic stenosis and congestive heart failure and multiple other medical problems including morbid obesity presented to hospital with worsening shortness of breath. Patient was at [facility] studies where she had progressive shortness of breath. Patient's pulse ox was low 70s upon EMS arrival. Patient was placed on 100% nonrebreather but the patient remained hypoxic. Patient was placed on BiPAP. And was transferred to ER. Patient was given breathing treatments while in the ER without much relief. Patient was subsequently intubated due to acute hypoxic respiratory failure. Currently patient is intubated and is in the medical intensive care unit. Chest x-ray showed no evidence of pneumothorax. Bilateral air space disease was present in the perihilar region in the lower lobes bilaterally right more than left. WC count was 22 on admission. Lactic acid 5.9 on admission ABG showed pH of 7.21 pCO2 63 and PaO2 88 with 100% FiO2. Patient is currently on Solu-Medrol 60 g every 6 hourly along with duo nebs and antibiotics in the form of levofloxacin and Zosyn. Cardiology and pulmonary is following. Chest x-ray this morning showed mildly improved aeration of the right lung otherwise stable 2-D echocardiogram showed ejection fraction 50-55% with severe severe mitral stenosis and severe aortic stenosis. Review of Systems Patient is currently intubated and sedated. Complete review of systems could not be apparent from the patient 05/13/2018 remains vent dependent, FiO2 50%/+5 of PEEP. Maintained on DIprovan. Telemetry sinus rhythm. Diuresing well on Lasix IV push with 24- hour I&O reflecting a negative fluid balance. Chest x-ray stable, persistent scattered infiltrates to bilateral lungs greatest in the right lung, small bilateral pleural effusions. Maintained on Zosyn and Levaquin .T-max 99.1, leukocytosis improving, sputum culture pending, preliminary blood cultures negative. Tolerating tube feeds with minimal to no residuals. IV fluids PIVL' D. 05/14/2018 Patient is currently vent dependent with assist control. Patient was tried for weaning today but patient was agitated and was sedated again. Patient is being continued on IV Lasix and Cardizem has been changed to oral. Patient went into atrial fibrillation with rapid ventricular rate last night and was started on Cardizem.. Pulmonary and cardiology is following. Chest x-ray showed slight improvement. 05/15/2018 Patient is currently on mechanical ventilator. Currently heart rate is controlled with Cardizem oral. Patient is in atrial fibrillation but heart rate is controlled. CT chest showed bilateral pleural effusion and cardiomegaly. Patient is being continued on Lasix 40 mg daily due to marginal blood pressure and severe underlying valvular heart disease. Cardiology and pulmonary is following. 05/16/2018 remains vent dependent, FiO2 40%/+5 of PEEP. Currently sinus rhythm ; A. fib with controlled ventricular rate last night. Anticoagulated on heparin drip.CPAP trial attempted, tolerated approximately 20 minutes, became tachypneic, tachycardic. Maintained on Diprivan. Chest x-ray reported stable moderate right pleural effusion Chest ultrasound reporting small right pleural effusion, less than 5 cm, not marked for thoracentesis. BUN 53, creatinine 0.7. Diuresing on Lasix IV push, 24-hour I&O reflecting a positive fluid balance, Lasix increased. 05/17/2018 ABGs revealing metabolic alkalosis. Chest x-ray reporting continued right lower lung moderate opacity and small left effusion. Diuresing well on Lasix IV push with 24-hour I&O reflecting a negative fluid balance. Maintained on vent support with FiO2 of 50/+5 of PEEP. Currently on CPAP trial. Amiodarone drip added to med regime as per cardiology. 05/18/2018 maintained on vent support, FiO2 50%/+5 of PEEP ,sedated on Diprovan. Levophed initiated last night, currently at 2 mcgs. Amiodarone drip converted to oral. Continues on heparin drip, Levaquin and Zosyn. Sputum culture repeated today. Diuresing well on Lasix IV push with 24-hour I&O reflecting a negative fluid balance. Receiving potassium supplementation for potassium of 2.9.Yesterday during the CPAP trial developed a nonsustained 10 beat run of V. tach, asymptomatic. Earlier today Diprovan held, became tachypneic with respiratory rate increased into the high 30s, tachycardic; unable to proceed with CPAP trial today. Evaluated by vascular/ cardiothoracic surgeon Dr. Melton for potential trach and PEG with recommendations noted. Chest x-ray reporting overall stable, mild central vascular congestion ,small to moderate size right greater than left pleural effusions, bibasilar atelectasis/infiltrates. Chest ultrasound reporting bilateral small pleural effusions with neither side marked for potential thoracentesis. Objective - Vital Signs Vital signs: Vital Signs Temp 97.5 F L 05/18/18 12:00 Pulse 96 05/18/18 16:00 Resp 24 05/18/18 15:30 BP 117/56 05/18/18 15:30 Pulse Ox 98 05/18/18 15:30 Intake & Output 05/17/18 05/18/18 05/18/18 18:59 06:59 18:59 Intake Total 7033.836 3374.588 897.739 Output Total 1965 1155 1225 Balance -581.777 377.588 -327.261 Weight 110 kg 110 kg Intake: IV 160 360 136.5 Levofloxacin 750Mg-D5w 150 Pmx 750 mg In Dextrose/ Water 1 150ml.bag @ 100 mls/hr IVPB Q24H NIRANJAN Rx#: [id number] Piperacillin-Tazobactam 3 50 100 26.5 .375 gm In Dextrose/Water 1 50ml.bag @ 12.5 mls/hr IVPB Q8H NIRANJAN Rx#: [id number] Sodium Chloride 0.9% 1, 110 110 110 000 ml @ 10 mls/hr IV . Q24H NIRANJAN Rx#:[id number] Intake, IV Titration 518.223 587.588 416.239 Amount Amiodarone 450 mg In 249.97 55.841 Dextrose 5% in Water 250 ml @ 1 MG/MIN 33.33 mls/ hr IV .Q7H31M NIRANJAN Rx#: [id number] Heparin Sod,Pork in 0.45% 68.253 431.747 195.081 NaCl 25,000 unit In 0.45 % NaCl 1 500ml.bag @ 8.9 UNITS/KG/HR 19.93 mls/hr IV .Q24H NIRANJAN Rx#: [id number] Propofol 1,000 mg In 200.000 100.000 221.158 Empty Bag 1 bag @ Titrate IV .Q0M NIRANJAN Rx#: [id number] Tube Feeding 525 525 315 Other 180 60 30 Output: Urine 1965 1155 1225 Other: Voiding Method Indwelling Catheter Indwelling Catheter Indwelling Catheter ABP, PAP, CO, CI - Last Documented Arterial Blood Pressure - Exam Patient is lying in the bed, no acute distress, sedated and intubated. HEENT: Normocephalic. Neck is supple. Pupils reactive. Oral cavity is moist. Neck reveals no JVD, carotid bruits, or thyromegaly. CHEST EXAMINATION: Trachea is central. Symmetrical expansion. Endotracheal tube present. Scattered rhonchi with Fine bibasilar crackles with no rhonchi, no wheezes. CARDIAC: Normal S1, S2 with no gallops. no murmur ABDOMEN: Soft. Bowel sounds normal. No organomegaly. No abdominal bruits. Extremities: reveal no edema. No clubbing or cyanosis Neurologically unable to assess, patient is currently sedated and intubated. Microbiology 05/11/18 15:56 Blood Blood Culture - Final No Growth after 144 hours 05/11/18 21:09 Sputum Gram Stain - Final 05/11/18 21:09 Sputum Sputum Culture - Final - Labs CBC & Chem 7: 05/18/18 04:21 05/18/18 04:21 Labs: Abnormal Lab Results - Last 24 Hours (Table) 05/17/18 05/18/18 05/18/18 Range/Units 17:55 00:10 04:21 WBC 28.8 H* (3.8-10.6) k/uL Neutrophils # 26.3 H (1.3-7.7) k/uL Lymphocytes # 0.9 L (1.0-4.8) k/uL Monocytes # 1.2 H (0-1.0) k/uL PT (9.0-12.0) sec INR (<1.2) APTT (22.0-30.0) sec ABG pH (7.35-7.45) ABG pCO2 (35-45) mmHg ABG HCO3 (21-25) mmol/L ABG Total CO2 (19-24) mmol/L ABG O2 Saturation (94-97) % Potassium (3.5-5.1) mmol/L Chloride (98-107) mmol/L Carbon Dioxide (22-30) mmol/L BUN (7-17) mg/dL Glucose (74-99) mg/dL POC Glucose (mg/dL) 188 H 167 H (75-99) mg/dL Phosphorus (2.5-4.5) mg/dL Magnesium (1.6-2.3) mg/dL 05/18/18 05/18/18 05/18/18 Range/Units 04:21 04:21 06:16 WBC (3.8-10.6) k/uL Neutrophils # (1.3-7.7) k/uL Lymphocytes # (1.0-4.8) k/uL Monocytes # (0-1.0) k/uL PT 13.2 H (9.0-12.0) sec INR 1.4 H (<1.2) APTT 89.4 H (22.0-30.0) sec ABG pH (7.35-7.45) ABG pCO2 (35-45) mmHg ABG HCO3 (21-25) mmol/L ABG Total CO2 (19-24) mmol/L ABG O2 Saturation (94-97) % Potassium 2.9 L* (3.5-5.1) mmol/L Chloride 93 L (98-107) mmol/L Carbon Dioxide 39 H (22-30) mmol/L BUN 52 H (7-17) mg/dL Glucose 202 H (74-99) mg/dL POC Glucose (mg/dL) 200 H (75-99) mg/dL Phosphorus 4.6 H (2.5-4.5) mg/dL Magnesium 2.6 H (1.6-2.3) mg/dL 05/18/18 05/18/18 05/18/18 Range/Units 07:38 11:58 12:45 WBC (3.8-10.6) k/uL Neutrophils # (1.3-7.7) k/uL Lymphocytes # (1.0-4.8) k/uL Monocytes # (0-1.0) k/uL PT (9.0-12.0) sec INR (<1.2) APTT (22.0-30.0) sec ABG pH 7.51 H (7.35-7.45) ABG pCO2 49 H (35-45) mmHg ABG HCO3 40 H* (21-25) mmol/L ABG Total CO2 41 H (19-24) mmol/L ABG O2 Saturation 98.0 H (94-97) % Potassium (3.5-5.1) mmol/L Chloride (98-107) mmol/L Carbon Dioxide (22-30) mmol/L BUN (7-17) mg/dL Glucose (74-99) mg/dL POC Glucose (mg/dL) 187 H 205 H (75-99) mg/dL Phosphorus (2.5-4.5) mg/dL Magnesium (1.6-2.3) mg/dL Microbiology - Last 24 Hours (Table) 05/11/18 15:56 Blood Culture - Final Blood No Growth after 144 hours Assessment and Plan Assessment: Acute hypoxic respiratory failure. Multifactorial secondary to pneumonia ,CHF and COPD. Currently patient is intubated. Bilateral lower lobe pneumonia. Right greater than left Acute cardio pulmonary arrest with brief loss of pulse status post CPR and a dose of epinephrine with return of spontaneous circulation. Lactic acidosis 5.9 on admission improving, recovered Sepsis secondary to pneumonia Obstructive sleep apnea on BiPAP at home Morbid obesity with BMI 44.9 with possible underlying obesity hypoventilation Acute on chronic CHF with systolic dysfunction as well as valvular heart disease History of right hemidiaphragmatic plication for unilateral paralysis History of TIA Nephrolithiasis Osteoarthritis Hypothyroidism with low free T4 level and elevated TSH. Uncontrolled History of atrial fibrillation. Paroxysmal. Currently in sinus rhythm on Rythmol GERD Gout Plan: Continue on current medication regime ,monitoring and symptomatic treatment. Vent Weaning trials in progress. Trach and PEG being discussed currently.Maintain nebulized bronchodilators, systemic steroids, antibiotics. Continue diuretics. Prognosis guarded given multiple complex medical issues. The impression and plan of care has been dictated as directed. : I performed a history and examination of this patient, discussed the same with the dictator. I agree with the dictator's note ,documented as a scribe. Any additional findings or plans will be noted.
[2018-05-18 17:56] LABS: Glucose,Whole Blood 167 mg/dL (75-99)
[2018-05-18] MEDS: LEVOFLOXACIN 750MG-D5W PMX 750 MG in DEXTROSE/WATER 1 150ML.BAG IVPB SCH (17:58)
[2018-05-18 23:45] LABS: Glucose,Whole Blood 167 mg/dL (75-99)
[2018-05-19] MEDS: INSULIN ASPART 100 UNIT/ML 1 ML 10 ML VIAL SQ SCH ×4 (00:08→17:08)
[2018-05-19] MEDS: methylPREDNISolone SOD SUCCI 125 MG/2 ML VIAL IV SCH ×4 (00:09→17:40)
[2018-05-19] MEDS: PROPOFOL 1,000 MG in EMPTY BAG 1 BAG IV SCH ×5 (02:05→20:48)
[2018-05-19] MEDS: IPRATROPIUM-ALBUTEROL 3 ML NEB INHALATION SCH ×5 (02:52→19:10)
[2018-05-19] MEDS: PIPERACILLIN-TAZOBACTAM 3.375 GM in DEXTROSE/WATER 1 50ML.BAG IVPB SCH ×3 (03:51→20:23)
[2018-05-19 06:02] LABS: Basophils # (A) 0.2 k/uL (0-0.2); Basophils % (A) 1 %; Eosinophils % (A) 0 %; HCT 37.9 % (34.0-46.0); Hypochromasia Slight; Lymphocytes # (A) 0.8 k/uL (1.0-4.8); Lymphocytes % (A) 2 %; MCH 28.4 pg (25.0-35.0); MCHC 31.7 g/dL (31.0-37.0); MCV 89.7 fL (80.0-100.0); Mean Platelet Volume 7.2; Monocytes # (A) 1.7 k/uL (0-1.0); Monocytes % (A) 5 %; Neutrophils # (A) 29.2 k/uL (1.3-7.7); Neutrophils % (A) 90 %; Platelet Count 245 k/uL (150-450); RBC 4.22 m/uL (3.80-5.40); RDW 14.7 % (11.5-15.5)
[2018-05-19 06:03] LABS: INR 1.4 (<1.2); Partial Thromboplastin Time 51.1 sec (22.0-30.0); Prothrombin Time 13.4 sec (9.0-12.0)
[2018-05-19 06:05] LABS: WBC 32.3 k/uL (3.8-10.6)
[2018-05-19 06:09] LABS: Anion Gap 7 mmol/L; Blood Urea Nitrogen 47 mg/dL (7-17); Calcium 8.4 mg/dL (8.4-10.2); Carbon Dioxide 39 mmol/L (22-30); Chloride 93 mmol/L (98-107); Glucose 179 mg/dL (74-99); Magnesium 2.5 mg/dL (1.6-2.3); Phosphorus 3.9 mg/dL (2.5-4.5); Potassium 3.6 mmol/L (3.5-5.1); Sodium 139 mmol/L (137-145)
[2018-05-19] MEDS: HEPARIN SOD,PORK IN 0.45% NACL 25,000 UNIT in 0.45% NACL 1 500ML.BAG IV SCH ×2 (06:17→22:27)
[2018-05-19] MEDS ORDERED: Potassium Replacement Protocol 1 EACH MISC MISCELLANE PRN (06:21)
[2018-05-19 06:24] LABS: Glucose,Whole Blood 178 mg/dL (75-99)
[2018-05-19] MEDS: LEVOTHYROXINE 50 MCG TAB PO SCH (06:27)
[2018-05-19] MEDS ORDERED: POTASSIUM BICARBONATE/CIT AC 20 MEQ TABLET.EFF NG-TUBE SCH (07:00)
[2018-05-19 07:30] LABS: ABG Base Excess 20.7 mmol/L; ABG Oxygen Saturation 98.1 % (94-97); ABG PCO2 53 mmHg (35-45); ABG PH 7.53 (7.35-7.45); ABG PO2 96 mmHg (83-108); ABG TCO2 45 mmol/L (19-24)
[2018-05-19 07:33] LABS: ABG HCO3 44 mmol/L (21-25)
--- NOTE | 2018-05-19 07:41 | P.PN ---
Subjective Progress Note Date: 05/19/18 Principal diagnosis: Acute hypoxic respiratory failure This is a 77-year-old female patient who was admitted to the intensive care unit with cardiopulmonary arrest. Currently the patient is intubated and she is on ventilator. The patient was in her usual state of health until yesterday when she was at the [facility] and she started experiencing shortness of breath. She didn't go home and she did to back-to- back breathing treatment without any improvement in her symptoms. At that point the patient called her daughter came in and found her mother in respiratory distress where at that point EMS was called and the patient was hypoxic where she was brought to the emergency room. In the ER the patient did have cardiopulmonary arrest with PDA and she received 2 epinephrine and she was intubated at that point and she was brought to the intensive care unit. Currently the patient is intubated unit nit. Currently the patient is intubated but remain hemodynamically stable and she is not on any vasopressors. The patient does have history of obstructive sleep apnea and she uses CPAP machine. She is obese. The side that interim of cardiac history she does have history of mild nonobstructive coronary artery disease based on heart catheterization was performed in 2013. The patient underwent an echocardiogram bedside today and that revealed normal left ventricle systolic function with hypertensive heart disease and evidence off severe mitral stenosis with a mean gradient across the mitral valve 20 mmHg as well as moderate to severe aortic stenosis with a mean gradient across aortic valve of 30 mmHg. The chest x-ray showed what it seems to be possible bilateral pneumonia with possible component of congestive heart failure. The BNP came in to be around 1000. The EKG showed sinus rhythm with sinus tachycardia and nonspecific changes in the lateral leads. The first set of troponin came in to be normal and we'll obtain 2 more sets of troponin. The lactic acid is elevated. On follow-up with the patient today, she continues to be intubated on ventilator. Hemodynamically she continues to be require small dose of vasopressors was 2 mics only of Levophed. I am going to wean her from the vasopressors. Beside that she was converted to normal sinus mechanism on amiodarone and currently she is on amiodarone by mouth at 400 mg twice a day. She is also on oral anticoagulation with Coumadin besides heparin IV until the INR is therapeutic. The WBC continues going up. The chest x-ray continues to show finding consistent with right pleural effusion with possible bilateral pneumonia. Objective - Vital Signs Vital signs: Vital Signs Temp 98.8 F 05/19/18 04:00 Pulse 82 05/19/18 07:00 Resp 23 05/19/18 07:00 BP 111/50 05/19/18 07:00 Pulse Ox 95 05/19/18 07:00 Intake & Output 05/18/18 05/19/18 05/19/18 18:59 06:59 18:59 Intake Total 2260.212 2173.289 34 Output Total 1860 1175 Balance -744.753 0.289 34 Weight 110 kg 115.3 kg Intake: IV 166.5 220 10 Piperacillin-Tazobactam 3 26.5 100 .375 gm In Dextrose/Water 1 50ml.bag @ 12.5 mls/hr IVPB Q8H NIRANJAN Rx#: [id number] Sodium Chloride 0.9% 1, 140 120 10 000 ml @ 10 mls/hr IV . Q24H NIRANJAN Rx#:[id number] Intake, IV Titration 555.747 643.289 Amount Heparin Sod,Pork in 0.45% 195.081 304.919 NaCl 25,000 unit In 0.45 % NaCl 1 500ml.bag @ 8.9 UNITS/KG/HR 19.93 mls/hr IV .Q24H NIRANJAN Rx#: [id number] Norepinephrine 16 mg In 2.558 Dextrose 5% in Water 250 ml @ Titrate IV .Q0M NIRANJAN Rx#:[id number] Propofol 1,000 mg In 358.108 338.37 Empty Bag 1 bag @ Titrate IV .Q0M NIRANJAN Rx#: [id number] Tube Feeding 363 312 24 Other 30 Output: Urine 1860 1175 Other: Voiding Method Indwelling Catheter Indwelling Catheter ABP, PAP, CO, CI - Last Documented Arterial Blood Pressure 24 - Constitutional General appearance: Present: no acute distress - Respiratory Respiratory: bilateral: diminished - Cardiovascular Rhythm: regular Heart sounds: normal: S1, S2 Abnormal Heart Sounds: Present: systolic murmur - Labs CBC & Chem 7: 05/19/18 05:35 05/19/18 05:35 Labs: Abnormal Lab Results - Last 24 Hours (Table) 05/18/18 05/18/18 05/18/18 Range/Units 07:38 11:58 12:45 WBC (3.8-10.6) k/uL Neutrophils # (1.3-7.7) k/uL Lymphocytes # (1.0-4.8) k/uL Monocytes # (0-1.0) k/uL PT (9.0-12.0) sec INR (<1.2) APTT (22.0-30.0) sec ABG pH 7.51 H (7.35-7.45) ABG pCO2 49 H (35-45) mmHg ABG HCO3 40 H* (21-25) mmol/L ABG Total CO2 41 H (19-24) mmol/L ABG O2 Saturation 98.0 H (94-97) % Potassium (3.5-5.1) mmol/L Chloride (98-107) mmol/L Carbon Dioxide (22-30) mmol/L BUN (7-17) mg/dL Glucose (74-99) mg/dL POC Glucose (mg/dL) 187 H 205 H (75-99) mg/dL Magnesium (1.6-2.3) mg/dL 05/18/18 05/18/18 05/18/18 Range/Units 17:00 17:54 23:44 WBC (3.8-10.6) k/uL Neutrophils # (1.3-7.7) k/uL Lymphocytes # (1.0-4.8) k/uL Monocytes # (0-1.0) k/uL PT (9.0-12.0) sec INR (<1.2) APTT (22.0-30.0) sec ABG pH (7.35-7.45) ABG pCO2 (35-45) mmHg ABG HCO3 (21-25) mmol/L ABG Total CO2 (19-24) mmol/L ABG O2 Saturation (94-97) % Potassium 3.1 L (3.5-5.1) mmol/L Chloride (98-107) mmol/L Carbon Dioxide (22-30) mmol/L BUN (7-17) mg/dL Glucose (74-99) mg/dL POC Glucose (mg/dL) 167 H 167 H (75-99) mg/dL Magnesium (1.6-2.3) mg/dL 05/19/18 05/19/18 05/19/18 Range/Units 05:35 05:35 05:35 WBC 32.3 H* (3.8-10.6) k/uL Neutrophils # 29.2 H (1.3-7.7) k/uL Lymphocytes # 0.8 L (1.0-4.8) k/uL Monocytes # 1.7 H (0-1.0) k/uL PT 13.4 H (9.0-12.0) sec INR 1.4 H (<1.2) APTT 51.1 H (22.0-30.0) sec ABG pH (7.35-7.45) ABG pCO2 (35-45) mmHg ABG HCO3 (21-25) mmol/L ABG Total CO2 (19-24) mmol/L ABG O2 Saturation (94-97) % Potassium (3.5-5.1) mmol/L Chloride 93 L (98-107) mmol/L Carbon Dioxide 39 H (22-30) mmol/L BUN 47 H (7-17) mg/dL Glucose 179 H (74-99) mg/dL POC Glucose (mg/dL) (75-99) mg/dL Magnesium 2.5 H (1.6-2.3) mg/dL 05/19/18 05/19/18 Range/Units 06:22 07:27 WBC (3.8-10.6) k/uL Neutrophils # (1.3-7.7) k/uL Lymphocytes # (1.0-4.8) k/uL Monocytes # (0-1.0) k/uL PT (9.0-12.0) sec INR (<1.2) APTT (22.0-30.0) sec ABG pH 7.53 H (7.35-7.45) ABG pCO2 53 H (35-45) mmHg ABG HCO3 44 H* (21-25) mmol/L ABG Total CO2 45 H (19-24) mmol/L ABG O2 Saturation 98.1 H (94-97) % Potassium (3.5-5.1) mmol/L Chloride (98-107) mmol/L Carbon Dioxide (22-30) mmol/L BUN (7-17) mg/dL Glucose (74-99) mg/dL POC Glucose (mg/dL) 178 H (75-99) mg/dL Magnesium (1.6-2.3) mg/dL Microbiology - Last 24 Hours (Table) 05/18/18 20:50 Gram Stain - Preliminary Sputum Sputum Culture - Preliminary Assessment and Plan Assessment: Assessment #1 acute respiratory failure #2 cardiopulmonary arrest #3 possible bilateral pneumonia #4 congestive heart failure secondary to systolic dysfunction and valvular heart disease #5 valvular heart disease with severe mitral stenosis and moderate to severe aortic stenosis #6 obstructive sleep apnea #7 morbid obesity Plan #1 currently the patient is intubated and she is on ventilator. Field Instructor on the case #2 she is getting treated for bilateral pneumonia #3 continue the amiodarone by mouth at 400 mg twice a day #4 continue IV Lasix #5 continue anticoagulation with heparin and Coumadin #6 follow-up with the patient.
[2018-05-19] MEDS: DILTIAZEM ORAL 60 MG TAB PO SCH ×3 (08:19→22:17)
[2018-05-19] MEDS: CHLORHEXIDINE GLUCONATE 15 ML CUP MUCOUS MEM SCH ×2 (08:19→20:24)
[2018-05-19] MEDS: AMIODARONE 200 MG TAB PO SCH ×2 (08:19→20:49)
[2018-05-19] MEDS: PANTOPRAZOLE 40 MG/10 ML VIAL IVP SCH (08:19)
[2018-05-19] MEDS: FUROSEMIDE 10 MG/ML 4 ML VIAL IV SCH ×2 (08:19→15:44)
[2018-05-19] MEDS: LACTULOSE 20 GM/30 ML CUP PO SCH ×3 (08:19→22:17)
--- NOTE | 2018-05-19 08:31 | XR ---
EXAMINATION TYPE: XR chest 1V DATE OF EXAM: 05/19/2018 COMPARISON: 05/18/2018 HISTORY: Ventilatory dependent respiratory failure. Follow-up exam. TECHNIQUE: Single frontal view of the chest is obtained. FINDINGS: There is a persistent small layering right pleural effusion and trace layering left pleura l effusion with associated bibasilar airspace disease. There is improved pulmonary vascular congestio n. There is stable positioning of the endotracheal tube, enteric tube, and left subclavian central ve nous catheter. Moderate degenerative changes of the thoracic spine are noted. Cardiac silhouette is s table and again mildly enlarged. IMPRESSION: Similar-appearing layering pleural effusions, small on the right and trace on the left w ith right hemidiaphragm elevation and bibasilar airspace disease, likely atelectasis. Improving pulmo nary vascular congestion.
--- NOTE | 2018-05-19 11:59 | P.PN ---
Subjective Progress Note Date: 05/19/18 Principal diagnosis: Acute hypoxic respiratory failure secondary to bilateral lower lobe pneumonia and congestive heart failure. A 77-year-old morbidly obese female patient with known history of obstructive sleep apnea maintained on BiPAP therapy on outpatient basis and addition to chronic bronchial asthma and significant limitation in exercise capacity secondary to her age body habitus and comorbidities, presented to the hospital because of an acute respiratory failure. I interviewed the daughter. Apparently the patient was at [employer] studies and she was getting progressively more short of breath. After arriving home she did [id number] breathing treatments without much relief. Ultimately she called her daughter who arrived to the scene and she saw that her mother was having more chest congestion, respirator distress, wheezing, and she was headed into respiratory failure. EMS was called to the scene. Upon arrival of EMS, the patient's pulse ox was in the low 70s pH was placed on on the percent nonrebreather facemask as she remained hypoxic and following that the patient was placed on BiPAP. The patient was moved to the emergency department. The patient was seen immediately after she arrived the ED. She was hypoxic, and she was cold and clammy and salmon color and cyanotic. As we were getting ready to intubate the patient, the patient lost pulse briefly and she became bradycardic. She went to the [facility]. She received a dose of epinephrine. She was started on CPR. Within 1 minute she recovered her pulse and the blood pressure. She was intubated and placed on a mechanical ventilator. She currently has a 7.[address] She is an assist-control mode of ventilation at the rate of 26, tidal volume of 400, FiO2 of 100% and a PEEP of 5. Immediately postintubation the blood pressure improved and she had a systolic above 200. She was started on propofol for sedation and her current systolic blood pressure in the 150s. A Poe catheter was inserted. The peak pressures in the 38-40 range. Static pressures around 32. The patient has significant bronchospasm and wheezing. A chest x-ray was done post intubation and post line placement and the chest x- ray showed no evidence of any pneumothorax. Bilateral air space disease was present in the perihilar regions in the lower lobes bilaterally right more than left. ET tube and NG tube were in good location. The patient also had a left subclavian triple-lumen catheter that was inserted without any complications. She was started on IV Zosyn knowing that the patient also briefly aspirated and vomited at the time of the intubation. Labs showed a white cell count of 22. The postintubation blood gas showed a pH of 7.21 with a pCO2 of 63 and pO2 of 88 and this blood gases on 100% FiO2. Initial lactic acid level was at 5.9 On today's evaluation of 05/12/2018 I'm seeing this patient for a follow-up. The patient remains intubated on a mechanical ventilator. Sedated with Diprivan at 30 mics per KG per minute. She is well sedated and she is synchronous with the mechanical ventilator. She is an assist-control mode of ventilation at the rate of 26 with a tidal volume of 400 and FiO2 of 60% with a PEEP of 5. The patient's chest x-ray from today is showing some mild improvement examination of the right midlung field. Otherwise the rest of the signs are all stable. ET tube is in a good location. The patient has consolidation of the right lung involving the right apex and the right lung base. There is also some perihilar pulmonary infiltrates bilaterally addition to some cardiomegaly. There is chronic elevation of the right hemidiaphragm. The blood gases from today showed a pH of 7.33 with a pCO2 of 47 and pO2 of 77 and it wasn't an FiO2 of 60%. The lactic acid level is down to 1.9 from 2.9 in addition. The patient was given briefly a sedation holiday and she was able to follow commands, simple commands and following that the patient was placed back on sedation. She did not require any pressors and the patient is maintaining home blood pressure. She was seen by cardiology today. Echocardiogram was done. The echo showed normal LV function with hypertensive heart disease and evidence of severe mitral stenosis with a mean gradient across the mitral valve of 20 mmHg as well as moderate to severe aortic stenosis with a mean gradient across the valve of 30 mmHg. The patient's cardiac rhythm is still sinus. She remains on broad-spectrum antibiotic coverage with a combination of Zosyn and Levaquin. The sputum cultures still negative for now. Blood cultures have been sent and the results are still negative for now. White cell count is elevated at 22.3. The patient was started on Lasix by cardiology 40 mg IV every 24 hours. She is also normal state rate of 40 mL an hour for now. On today's evaluation of 05/13/2018, the patient remains intubated on a mechanical ventilator. She is lightly sedated and the patient can easily aroused from propofol infusion. She remains on a mechanical ventilator the same vent setting. The blood gas from today, while on the 50% FiO2 showed a pH of 7.39 with a pCO2 of 40 and a pO2 of 81. White cell count is down to 17. The chest x-ray from today is showing persistent bilateral pulmonary infiltrates most on the right upper lobe and the right lower lobe. There is also small bilateral pleural effusion and cardiomegaly. ET tube remains in a good location. Cultures of been all negative thus far. The patient is afebrile and the patient is hemodynamically stable. Also, echocardiogram showed moderate to severe mitral stenosis and aortic valve stenosis and the patient was started on diuresis yesterday. I think we need to diurese this patient more aggressively over the next 24 hours. She'll feeds are running and the patient is tolerating her tube feeds without any major difficulties. Patient is producing adequate amount of urine output. Cardiac rhythm remains sinus. No other significant events over the past 24 hours. On 05/14/2089 seeing this patient for a follow-up. The patient remains intubated on a mechanical ventilator. She is on gentle sedation and she can easily aroused from her sedation and she can follow commands and answer questions appropriately. Her chest x-ray from today is showing some improvement in the aeration of the right lung. The patient has developed a consolidation and effusion the right lung base. The upper lobes are more clear. ET tube is in a good location. She remains on a mechanical ventilator. Assist-control mode of ventilation. She has a rate of 26, tidal volume of 400 , FiO2 is still at 60% with a PEEP of 5. Her blood gases from today showed a pH of 7.39 , pCO2 of 49 and pO2 of 81. I doubt the FiO2 down to 50%. I asked the nursing staff to stop the sedation completely and we checked her weaning parameters and the weaning parameters showed a NIF of -35 and vital Of 935 and the rapid shallow breathing index was less than 100. Based on that, the patient was given a spelled his breathing trial. She lasted for a total of 30 minutes. Following that she became tachycardic and cachectic. Blood gases obtained and the patient had a pH of 7.48 with a pCO2 of 48 and pO2 of 78. Nevertheless, based on ongoing shortness of breath, we decided not to extubate the patient knowing that she was not quite ready for extubation. Noted over the past 24 hours to monitor the patient has significant cardiac events. The patient went into an SVT. She was a rapid ventricular response. She had to be cardioverted. Subsequently she went into atrial fibrillation/flutter rhythm. Her rate is controlled for now. Nevertheless the patient is on Cardizem 30 mg by mouth 3 times a day. She was also placed on IV heparin by cardiology. As mentioned earlier she has valvular heart disease with severe mitral regurgitation stenosis. The diuretics have been cut down to 40 g IV Lasix every 12 hours. The net fluid balance is -2 L for yesterday. No fever. No chills. White cell count is down to 12.6. On 05/15/2018, patient is being seen in follow-up. He remains on a mechanical ventilator. Still on the same vent setting within assist-control mode at the rate of 26 with an FiO2 of 50% with a tidal volume of 400 and a PEEP of 5. The blood gas showed a pH of 7.45 with a pCO2 of 51 and pO2 of 91. No major improvement of the chest x-ray finding and the patient continues to have significant amount of bilateral airspace disease and bilateral pleural effusion more so on the right. The patient is in a controlled rhythm with atrial fibrillation. The patient is diuresing gently with IV Lasix. Unable to do aggressively diurese this patient because of evolving hypotension. The patient has severe mitral stenosis and approximately 2 fibrillation. The patient is also on broad-spectrum antibiotic coverage. She was given a sedation holiday and this point is breathing trial which she was able to tolerate for quite some time and following that she became short of breath and tachycardic and tachypneic and based on that the child was discontinued and the patient was not extubated. She is in a negative fluid balance. The net fluid balance for yesterday was -1.6 L. We are still diuresing this patient and she has a good urine output. She is afebrile. She is tolerating her tube feeds. She is very easily arousable and currently she is sedated with Diprivan. Overall no major changes and conditions compared to yesterday. I'm going to proceed with a CAT scan of the chest to characterized the pulmonary abnormalities. At the same time the patient was started on anticoagulation with warfarin. On 05/16/2018, patient was evaluated, and she remains on mechanical ventilation. Her ventilator settings are assist control rate of 26, tidal volume of 400, FiO2 of 50%, and PEEP of 5. ABG showed a pO2 of 78 pCO2 of 51 pH of 7.48. Patient is awake, responsive to all verbal commands, follows all instructions, hence I took her off propofol, and recommended a spontaneous breathing trial. Placed on pressure support of 10 with CPAP, however she only lasted about 20 minutes and she was noted to have increased respiratory rate, tachycardia, and she was developing a bit of respiratory distress. Hence the patient was switched back to assist control mode of mechanical ventilation. And I felt that she is not ready to be weaned. Ultrasound of the chest was done, there was evidence of less than 5 cm pocket of fluid on the right pleural space, hence I did not feel the patient would benefit much from thoracentesis, not to mention that is associated with thoracentesis considering the amount of fluid is small. All labs were reviewed, her renal profile seems to be relatively normal however her BUN is 53 creatinine is 0.70, more of a prerenal type of azothemia. CBC is relatively normal with minimal leukocytosis. Heparin is therapeutic for her atrial fibrillation. Hemodynamically, the patient is stable , and not requiring any norepinephrine at this point. Propofol is presently on hold. Nutrition is also address, and the patient is being fed with nasogastric tube/enteral feeding. Fluid balance noted over the last 24 hours to be about 90 mL positive. Hence the Lasix dose was increased to twice a day. On 05/17/2018, patient remains on mechanical ventilation, ventilator settings at present are tidal volume of 400, assist control rate of 16 FiO2 of 50% and PEEP of 5. ABG showed a pO2 of 134 pCO2 of 37 pH of 7.62. Patient is not breathing beyond the ventilator settings, hence I cut down her rate from 20-16. And I felt that the patient has significant metabolic alkalosis, but probably this patient's baseline pCO2 is normally in the 50s or 60s to begin with. So the alkalosis were noting is metabolic and respiratory in nature or alkalosis post correction of respiratory acidosis. At any rate we'll continue diuretics, her chest x-ray continues to show bilateral pleural effusion especially on the right side, but the ultrasound did not show enough fluid to safely perform a thoracentesis the pocket was less than 5 cm. Fluid balance is negative about 1258 in the last 24 hours. Urine output remains excellent. Renal functioning is about the same with a BUN of 53 creatinine of 0.70. Patient was placed on amiodarone by cardiology, and she is on heparin for atrial fibrillation. WBC count is 15.8 hemoglobin is 12.5. Patient is on 50 g of propofol, but she is awake, following all instructions, and I suggested that we discontinue propofol , wake of the patient, and given a trial of pressure support of 10 and CPAP. If tolerated we could potentially consider extubating the patient to BiPAP. If not tolerated a sugar go back on assist control mode of mechanical ventilation, higher dose of propofol to sedate her a bit more, and wait for another day to address weaning all over again. Patient was reevaluated today on 05/18/2018, remains on mechanical ventilation, ventilator settings are about the same, unchanged from yesterday. ABG showed a pO2 of 99 pCO2 of 49 pH of 7.51. Potassium is a bit low being corrected as per protocol. BUN remains 52 creatinine 0.66, patient remains on diuretics, repeat ultrasound of the chest continues to show very small tiny right-sided pleural effusion. Not large enough to consider thoracentesis. Chest x-ray is suggestive of central vascular congestion with right basilar consolidation, and small pleural effusion. Patient was taken off propofol, kept on assist control mode of mechanical ventilation, however she was noted to be extremely agitated and restless and tachypneic as well as tachycardic. Hence placed back on propofol, and clearly she is not amenable at this point. Discussed her condition with family at bedside, and we felt at this point patient may be ready for tracheostomy and PEG tube placement. She is going to be extremely difficult to wean. Radius attempts to wean the patient have failed and the patient has been now on mechanical ventilation for 8 days. Remains on the same medications, diuretics, amiodarone, DuoNeb updrafts, remains on antibiotics in the form of Levaquin and Zosyn. Cultures have been nondiagnostic, more sputum cultures were sent today. Nutrition-hassan the patient is receiving enteral feeding. She remains also on GI and DVT prophylaxis. Patient was reevaluated today on 05/19/2018, remains on mechanical ventilation, assist control mode of mechanical ventilation, FiO2 is now to 40%, assist control rate of 16, volume is 400, and PEEP is 5. ABG was noted, patient was given a trial of weaning, and even on assist control mode of mechanical ventilation, patient was breathing basically up in the high 20s and low 30s. As we went to pressure support and CPAP, patient looked extremely tachypnea, she was getting a bit tachycardic, and noted to show some signs of respiratory distress. Hence I updated the family on her condition, and suggested bronchoscopy and evaluation of the right lower lobe. This was done, and the fluid from the right lower lobe was sent for different diagnostic studies. Discussed with the family again plans for tracheostomy and PEG tube placement, apparently they discuss this with her when she was awakened off propofol, and they are all now in agreement that the patient would not have wanted this to begin with. So having said that, I believe were to try to proceed with daily weaning trials, and once we have a window of weaning, we will wean and extubate , and probably not to reintubate. Even if the patient fails and that will be further discussed again on again with the family and with the patient. They seem to be inclined to not consider trach and PEG, but will be willing to proceed with weaning and extubation and not to reintubate at that time we think it is best to extubate. White count is high today 32.3. Her ABG showed a pO2 of 96 pCO2 of 53 pH of 7.53. Basic metabolic profile is relatively normal, bicarb is 39 BUN is 47 creatinine is 0.6. Chest x-ray showed no major change, there is evidence of small pleural effusion, right lower lobe consolidation, and bibasilar airspace disease. Slight cardiac enlargement noted. Right diaphragm is elevated. Objective - Vital Signs Vital signs: Vital Signs Temp 98.8 F 05/19/18 04:00 Pulse 83 05/19/18 11:20 Resp 23 05/19/18 07:00 BP 111/50 05/19/18 07:00 Pulse Ox 95 05/19/18 07:00 Intake & Output 05/18/18 05/19/18 05/19/18 18:59 06:59 18:59 Intake Total 9118.467 8930.289 116.461 Output Total 1860 1175 Balance -744.753 100.289 116.461 Weight 110 kg 115.3 kg Intake: IV 166.5 220 10 Piperacillin-Tazobactam 3 26.5 100 .375 gm In Dextrose/Water 1 50ml.bag @ 12.5 mls/hr IVPB Q8H NIRANJAN Rx#: [id number] Sodium Chloride 0.9% 1, 140 120 10 000 ml @ 10 mls/hr IV . Q24H NIRANJAN Rx#:[id number] Intake, IV Titration 555.747 743.289 82.461 Amount Heparin Sod,Pork in 0.45% 195.081 304.919 NaCl 25,000 unit In 0.45 % NaCl 1 500ml.bag @ 8.9 UNITS/KG/HR 19.93 mls/hr IV .Q24H NIRANJAN Rx#: [id number] Norepinephrine 16 mg In 2.558 25.401 Dextrose 5% in Water 250 ml @ Titrate IV .Q0M NIRANJAN Rx#:[id number] Propofol 1,000 mg In 358.108 438.37 57.06 Empty Bag 1 bag @ Titrate IV .Q0M NIRANJAN Rx#: [id number] Tube Feeding 363 312 24 Other 30 Output: Urine 1860 1175 Other: Voiding Method Indwelling Catheter Indwelling Catheter ABP, PAP, CO, CI - Last Documented Arterial Blood Pressure 24/24 - Exam Physical Exam: Revealed a 77-year-old female, obese, on mechanical ventilation, in no distress while on assist control mode of mechanical ventilation. Head: Atraumatic, normocephalic. Endotracheal tube and orogastric tube are noted to be intact. Minimal secretions noted in the endotracheal tube today. HEENT:[Neck is supple.] [No neck masses.] [No thyromegaly.] [No JVD.] PERRLA, EOMI, moist mucous membranes, no icterus was noted. Left sided subclavian triple-lumen catheter is noted to be in place. Chest: [Symmetrical expansion, diminished breath sounds at the bases especially at the left base, with crackles. No rhonchi, no wheezes.] Cardiac Exam: [Irregular irregular rhythm Normal S1 and S2, no S3 gallop, no murmur.] Abdomen: Obese, [Soft, nontender, no megaly, no rebound, no guarding, normal bowel sounds.] Extremities: [No clubbing, no edema, no cyanosis.] Neurological Exam: [No focal neurologic deficit.] Alert oriented 3, this was done off propofol, and the patient seems to be neurologically intact. Psychiatric: Normal mood affect and mental status examination. Lymphatics: No lymphadenopathy. Skin: No rashes. Musculoskeletal: No limitations in range of motion. - Labs CBC & Chem 7: 05/19/18 05:35 05/19/18 05:35 Labs: Abnormal Lab Results - Last 24 Hours (Table) 05/18/18 05/18/18 05/18/18 Range/Units 11:58 12:45 17:00 WBC (3.8-10.6) k/uL Neutrophils # (1.3-7.7) k/uL Lymphocytes # (1.0-4.8) k/uL Monocytes # (0-1.0) k/uL PT (9.0-12.0) sec INR (<1.2) APTT (22.0-30.0) sec ABG pH (7.35-7.45) ABG pCO2 (35-45) mmHg ABG HCO3 (21-25) mmol/L ABG Total CO2 (19-24) mmol/L ABG O2 Saturation (94-97) % Potassium 3.1 L (3.5-5.1) mmol/L Chloride (98-107) mmol/L Carbon Dioxide (22-30) mmol/L BUN (7-17) mg/dL Glucose (74-99) mg/dL POC Glucose (mg/dL) 187 H 205 H (75-99) mg/dL Magnesium (1.6-2.3) mg/dL 05/18/18 05/18/18 05/19/18 Range/Units 17:54 23:44 05:35 WBC 32.3 H* (3.8-10.6) k/uL Neutrophils # 29.2 H (1.3-7.7) k/uL Lymphocytes # 0.8 L (1.0-4.8) k/uL Monocytes # 1.7 H (0-1.0) k/uL PT (9.0-12.0) sec INR (<1.2) APTT (22.0-30.0) sec ABG pH (7.35-7.45) ABG pCO2 (35-45) mmHg ABG HCO3 (21-25) mmol/L ABG Total CO2 (19-24) mmol/L ABG O2 Saturation (94-97) % Potassium (3.5-5.1) mmol/L Chloride (98-107) mmol/L Carbon Dioxide (22-30) mmol/L BUN (7-17) mg/dL Glucose (74-99) mg/dL POC Glucose (mg/dL) 167 H 167 H (75-99) mg/dL Magnesium (1.6-2.3) mg/dL 05/19/18 05/19/18 05/19/18 Range/Units 05:35 05:35 06:22 WBC (3.8-10.6) k/uL Neutrophils # (1.3-7.7) k/uL Lymphocytes # (1.0-4.8) k/uL Monocytes # (0-1.0) k/uL PT 13.4 H (9.0-12.0) sec INR 1.4 H (<1.2) APTT 51.1 H (22.0-30.0) sec ABG pH (7.35-7.45) ABG pCO2 (35-45) mmHg ABG HCO3 (21-25) mmol/L ABG Total CO2 (19-24) mmol/L ABG O2 Saturation (94-97) % Potassium (3.5-5.1) mmol/L Chloride 93 L (98-107) mmol/L Carbon Dioxide 39 H (22-30) mmol/L BUN 47 H (7-17) mg/dL Glucose 179 H (74-99) mg/dL POC Glucose (mg/dL) 178 H (75-99) mg/dL Magnesium 2.5 H (1.6-2.3) mg/dL 05/19/18 Range/Units 07:27 WBC (3.8-10.6) k/uL Neutrophils # (1.3-7.7) k/uL Lymphocytes # (1.0-4.8) k/uL Monocytes # (0-1.0) k/uL PT (9.0-12.0) sec INR (<1.2) APTT (22.0-30.0) sec ABG pH 7.53 H (7.35-7.45) ABG pCO2 53 H (35-45) mmHg ABG HCO3 44 H* (21-25) mmol/L ABG Total CO2 45 H (19-24) mmol/L ABG O2 Saturation 98.1 H (94-97) % Potassium (3.5-5.1) mmol/L Chloride (98-107) mmol/L Carbon Dioxide (22-30) mmol/L BUN (7-17) mg/dL Glucose (74-99) mg/dL POC Glucose (mg/dL) (75-99) mg/dL Magnesium (1.6-2.3) mg/dL Microbiology - Last 24 Hours (Table) 05/18/18 06:59 Blood Culture - Preliminary Blood No Growth after 24 hours 05/18/18 20:50 Gram Stain - Preliminary Sputum Sputum Culture - Preliminary Assessment and Plan Assessment: 1 acute hypoxic respiratory failure with bilateral lower lobe pneumonia and possibly component of diastolic CHF. The patient presented emergency department with acute respiratory arrest, intubated and placed on a mechanical ventilator On 05/12/2018 the patient remains intubated on a mechanical ventilator. There is improvement in oxygenation and FiO2 has been drop down to 60%. There is also further weaning the FiO2 down knowing that the patient's pulse ox and the pO2 is above 100. Meanwhile, the sputum cultures still pending. The patient is on a broad-spectrum antibiotic coverage with a combination of Zosyn and Levaquin. The patient is still sedated on a mechanical ventilator, intubated. On 05/13/2018, the patient remains on a mechanical ventilator. The patient is oxygenating and ventilating well. She is on the same antibiotic coverage. There is persistent but the pulmonary consolidation and infiltrates most on the right. The patient is on Zosyn and Levaquin the patient will be started on diuretics should there be a component of interstitial/pulmonary edema in association with his underlying pneumonia. Cultures of been all negative thus far. The patient remains hemodynamically stable. On 05/14/2018, the patient is still on a mechanical ventilator. There is some improvement in the chest x-ray findings and the patient is not ready for extubation yet. Hemodynamically stable for now. Overnight the patient had issues with SVT and currently she is in atrial fibrillation with a controlled rate. She is being diuresed gently. She is also being covered with broad- spectrum antibiotics regarding bilateral pneumonia. The sputum culture is negative for now. On 05/15/2018 I'm not seeing any major change in the patient's chest x-ray finding. She still has bilateral airspace disease probably combination of pneumonia fluids. The patient initially suspected to have pneumonia. Subsequently she was found to have severe mitral stenosis and regurgitation which probably is contributing to her respiratory failure. She has severe valvular heart disease and please refer to the echocardiogram results. She remains on broad-spectrum antibiotics. CAT scan of the chest was noted and reviewed. On 05/16/2018, and attempt of weaning was done, patient was placed on a pressure support of 10 and CPAP, noted to develop significant tachypnea, tachycardia, hence no more attempts were made, patient was placed back on assist control mode of mechanical ventilation. On 05/19/2018, patient underwent bronchoscopy and bronchoalveolar lavage of the right lower lobe. Again failed an attempt of weaning using pressure support and CPAP. Patient was noted to be quite tachypneic, and tachycardic at the time of bleeding with a pressure support of 12 and CPAP. 2 bilateral lower lobe pneumonia with airspace disease and consolidations. Bronchoscopy was performed on 05/19/2018. 3 acute cardiac pulmonary arrest with brief loss in progress where the patient received CPR and received a dose of epinephrine with return of spontaneous circulation. Currently on no pressors. No signs of any hypoxic encephalopathy and the patient was given a brief sedation holiday and she was able to follow simple commands without any major difficulties 4 lactic acidosis secondary to above, improving and recovered 5 leukocytosis secondary to above, improving, and recovered 6 morbid obesity with a BMI of 43.4 7 obstructive sleep apnea 8 severe persistent bronchial asthma 9 history of right hemidiaphragmatic plication for unilateral paralysis 10 moderate to severe severe aortic stenosis and mitral stenosis, with a preserved LV function as evident on the echocardiogram 11 history of TIA 12 nephrolithiasis 13 gouty arthritis 14 hypothyroidism 13 hypertension 16 hyperlipidemia 17 history of atrial fibrillation on Rythmol and her current rhythm is back in atrial fibrillation with a controlled rate. 18 acid reflux 19 gout 20 degenerative arthritis 21 episodes of SVT, cardioverted 22 right sided pleural effusion, seen on ultrasound to be less than 5 cm, not safe to perform thoracentesis. Recommendation: Continue present supportive care measures, patient is clearly not ready for any weaning today, we'll continue antibiotics, continue ventilatory support, nutritional support, antibiotics, GI and DVT prophylaxis, discussed her condition with the family at bedside, at this point they seem to be against the idea of tracheostomy and PEG tube placement placement. They seem to be more agreeable to possibly consider attempts to wean, and not to reintubate if the patient fails then she will be made comfort care only. CODE STATUS is DO NOT RESUSCITATE at this point as per family's wheezes. Prognosis remains very poor and guarded, we will continue to follow. Critical care time is 35 minutes not including the time spent on bronchoscopy and BAL. Time with Patient: Greater than 30
[2018-05-19 12:00] LABS: Glucose,Whole Blood 153 mg/dL (75-99)
[2018-05-19] MEDS: SODIUM CHLORIDE 0.9% 1,000 ML IV SCH (12:18)
--- NOTE | 2018-05-19 14:40 | PCN ---
PROCEDURE NOTE OPERATIVE REPORT: Bronchoscopy and bronchoalveolar lavage of the right lower lobe. PREOPERATIVE DIAGNOSIS: Right lower lobe pneumonia. POSTOPERATIVE DIAGNOSIS: Right lower lobe pneumonia and tracheobronchomalacia. ANESTHESIA USED: Patient was already on propofol drip, and she was given 1 mg of Ativan and she was already on mechanical ventilation. PROCEDURE: The patient was placed in the supine position, her endotracheal tube was connected to an adapter and connected to mechanical ventilation. We monitored her O2 saturation continuously. Blood pressure was continuously monitored and cardiac rhythm was also continuously monitored. The bronchoscope was advanced through the endotracheal tube down to the area of the distal trachea, and there was evidence of whitish plaques and secretions noted on the anterior tracheal wall. These were suctioned, bronchoscope was advanced further down, examination of the ellie, right upper lobe, right middle lobe, right lower lobe, left upper lobe, lingula and left lower lobe was done. There was evidence of tracheobronchomalacia and there was evidence of minimal purulent secretions in the right lower lobe. The mucosa was noted to be quite , inflamed, and friable. Lavage of the right lower lobe was done, fluid obtained was sent for different diagnostic studies. No evidence of any immediate complication. The procedure was well tolerated. MMODL / IJN: [id number] /
[2018-05-19 15:19] LABS: Appearance,BF Blood Tinged; Color,BF Colorless
[2018-05-19] MEDS: LORazepam 2 MG/ML INJ IV PRN ×2 (15:46→22:32)
[2018-05-19] MEDS: LEVOFLOXACIN 750MG-D5W PMX 750 MG in DEXTROSE/WATER 1 150ML.BAG IVPB SCH (17:07)
[2018-05-19 17:08] LABS: Glucose,Whole Blood 149 mg/dL (75-99)
[2018-05-19] MEDS ORDERED: WARFARIN 2 MG TAB PO ONE (18:00)
[2018-05-19 18:16] LABS: Nucleated Cells, Body Fluid 800 /uL; RBC, Body Fluid 4900 /uL
[2018-05-19 18:18] LABS: Mononuclear WBC,Body Fluid 2 %; Polynuclear WBC,Body Fluid 98 %; Total Cells Counted,Body Fluid 100
[2018-05-19] MEDS: LACTATED RINGERS 1,000 ML IV SCH (19:34)
[2018-05-19] MEDS ORDERED: IPRATROPIUM-ALBUTEROL 3 ML NEB ONE (23:10)
[2018-05-19] MEDS ORDERED: PROPOFOL 10 MG/ML 100 ML VIAL IV ONE (23:10)
[2018-05-20 00:22] LABS: Glucose,Whole Blood 151 mg/dL (75-99)
[2018-05-20] MEDS ORDERED: LORazepam 2 MG/ML INJ ONE (02:00)
[2018-05-20] MEDS ORDERED: INSULIN ASPART 100 UNIT/ML 1 ML 10 ML VIAL SQ ONE (02:00)
[2018-05-20] MEDS ORDERED: methylPREDNISolone SOD SUCCI 125 MG/2 ML VIAL ONE (02:00)
[2018-05-20] MEDS ORDERED: IPRATROPIUM-ALBUTEROL 3 ML NEB ONE (02:00)
[2018-05-20] MEDS: PROPOFOL 1,000 MG in EMPTY BAG 1 BAG IV SCH ×2 (03:20→05:47)
[2018-05-20] MEDS: IPRATROPIUM-ALBUTEROL 3 ML NEB INHALATION SCH ×5 (04:56→20:31)
[2018-05-20] MEDS: INSULIN ASPART 100 UNIT/ML 1 ML 10 ML VIAL SQ SCH ×5 (05:48→23:44)
[2018-05-20] MEDS: methylPREDNISolone SOD SUCCI 125 MG/2 ML VIAL IV SCH ×5 (05:48→23:45)
[2018-05-20] MEDS: PIPERACILLIN-TAZOBACTAM 3.375 GM in DEXTROSE/WATER 1 50ML.BAG IVPB SCH ×3 (05:49→20:49)
[2018-05-20 05:50] LABS: Basophils # (A) 0.1 k/uL (0-0.2); Basophils % (A) 0 %; Eosinophils % (A) 0 %; HCT 34.3 % (34.0-46.0); Lymphocytes # (A) 0.8 k/uL (1.0-4.8); Lymphocytes % (A) 3 %; MCH 28.5 pg (25.0-35.0); MCHC 31.9 g/dL (31.0-37.0); MCV 89.2 fL (80.0-100.0); Monocytes # (A) 1.9 k/uL (0-1.0); Monocytes % (A) 6 %; Neutrophils # (A) 28.7 k/uL (1.3-7.7); Neutrophils % (A) 90 %; Platelet Count 232 k/uL (150-450); RBC 3.84 m/uL (3.80-5.40); RDW 14.8 % (11.5-15.5)
[2018-05-20 05:57] LABS: INR 1.4 (<1.2); Partial Thromboplastin Time 55.2 sec (22.0-30.0); Prothrombin Time 12.8 sec (9.0-12.0)
[2018-05-20] MEDS: LEVOTHYROXINE 50 MCG TAB PO SCH (06:37)
[2018-05-20 06:38] LABS: Glucose,Whole Blood 175 mg/dL (75-99)
[2018-05-20 06:52] LABS: Blood Urea Nitrogen 52 mg/dL (7-17); Calcium 8.1 mg/dL (8.4-10.2); Chloride 89 mmol/L (98-107); Glucose 176 mg/dL (74-99); Magnesium 2.7 mg/dL (1.6-2.3); Potassium 3.4 mmol/L (3.5-5.1); Sodium 137 mmol/L (137-145)
[2018-05-20 06:58] LABS: Anion Gap 5 mmol/L
[2018-05-20 07:15] LABS: Carbon Dioxide 43 mmol/L (22-30)
--- NOTE | 2018-05-20 07:39 | P.PN ---
Subjective Progress Note Date: 05/20/18 Principal diagnosis: Acute hypoxic respiratory failure This is a 77-year-old female patient who was admitted to the intensive care unit with cardiopulmonary arrest. Currently the patient is intubated and she is on ventilator. The patient was in her usual state of health until yesterday when she was at the [facility] and she started experiencing shortness of breath. She didn't go home and she did to back-to- back breathing treatment without any improvement in her symptoms. At that point the patient called her daughter came in and found her mother in respiratory distress where at that point EMS was called and the patient was hypoxic where she was brought to the emergency room. In the ER the patient did have cardiopulmonary arrest with PEA and she received 2 epinephrine and she was intubated at that point and she was brought to the intensive care unit. Currently the patient is intubated unit nit. Currently the patient is intubated but remain hemodynamically stable and she is not on any vasopressors. The patient does have history of obstructive sleep apnea and she uses CPAP machine. She is obese. The side that interim of cardiac history she does have history of mild nonobstructive coronary artery disease based on heart catheterization was performed in 2013. The patient underwent an echocardiogram and that revealed normal left ventricle systolic function with hypertensive heart disease and evidence off severe mitral stenosis with a mean gradient across the mitral valve 20 mmHg as well as moderate to severe aortic stenosis with a mean gradient across aortic valve of 30 mmHg. The chest x-ray showed what it seems to be possible bilateral pneumonia with possible component of congestive heart failure. The BNP came in to be around 1000. The EKG showed sinus rhythm with sinus tachycardia and nonspecific changes in the lateral leads. The first set of troponin came in to be normal and we'll obtain 2 more sets of troponin. The lactic acid is elevated. On follow-up with the patient today, May 202017, she continues to be intubated on ventilator. The chest x-ray seems to be worse in terms off worse right side pleural effusion. She is on Lasix IV at 40 mg twice a day. Hemodynamically she still requires small dose of vasopressors was Levophed. She is only on 2 mics. I am going to decrease the dose of Cardizem to 30 mg by mouth 3 times a day and try to wean her from the Levophed. She has been maintaining normal sinus mechanism on amiodarone by mouth. Anticoagulation was Coumadin was initiated and the INR today is 1.4. I am going to give the patient 4 mg of Coumadin today and repeat INR in the morning. The family wants the patient to have another a weaning trial and if she failed and they would like to proceed with discomfort care which I think is not unreasonable. Beside that the patient continues to receive antibiotic for bilateral pneumonia. The wbc continue in climbing up, the hemoglobin is a stable, and the kidney function is stable. As a matter of fact the patient has been putting significant amount of urine on diuretics. Objective - Vital Signs Vital signs: Vital Signs Temp 98.7 F 05/19/18 20:00 Pulse 77 05/20/18 07:00 Resp 26 H 05/20/18 07:00 BP 134/67 05/20/18 07:00 Pulse Ox 91 L 05/20/18 07:00 Intake & Output 05/19/18 05/20/18 05/20/18 18:59 06:59 18:59 Intake Total 808.843 5990.423 34 Output Total 1450 380 60 Balance -857.238 625.423 -26 Weight 115.3 kg Intake: IV 141 62.5 10 Piperacillin-Tazobactam 3 12.5 .375 gm In Dextrose/Water 1 50ml.bag @ 12.5 mls/hr IVPB Q8H NIRANJAN Rx#: [id number] Sodium Chloride 0.9% 1, 141 50 10 000 ml @ 10 mls/hr IV . Q24H NIRANJAN Rx#:[id number] Intake, IV Titration 121.762 774.923 Amount Heparin Sod,Pork in 0.45% 500 NaCl 25,000 unit In 0.45 % NaCl 1 500ml.bag @ 8.9 UNITS/KG/HR 19.93 mls/hr IV .Q24H NIRANJAN Rx#: [id number] Norepinephrine 16 mg In 25.401 Dextrose 5% in Water 250 ml @ Titrate IV .Q0M NIRANJAN Rx#:[id number] Propofol 1,000 mg In 96.361 274.923 Empty Bag 1 bag @ Titrate IV .Q0M NIRANJAN Rx#: [id number] Tube Feeding 240 168 24 Other 90 Output: Urine 1450 380 60 Other: Voiding Method Indwelling Catheter Indwelling Catheter ABP, PAP, CO, CI - Last Documented Arterial Blood Pressure - Constitutional General appearance: Present: mild distress - Respiratory Respiratory: bilateral: rales, wheezing - Cardiovascular Rhythm: regular Heart sounds: normal: S1, S2 Abnormal Heart Sounds: Present: systolic murmur - Labs CBC & Chem 7: 05/20/18 05:40 05/20/18 05:40 Labs: Abnormal Lab Results - Last 24 Hours (Table) 05/19/18 05/19/18 05/19/18 Range/Units 07:27 11:58 17:06 WBC (3.8-10.6) k/uL Hgb (11.4-16.0) gm/dL Neutrophils # (1.3-7.7) k/uL Lymphocytes # (1.0-4.8) k/uL Monocytes # (0-1.0) k/uL PT (9.0-12.0) sec INR (<1.2) APTT (22.0-30.0) sec ABG pH 7.53 H (7.35-7.45) ABG pCO2 53 H (35-45) mmHg ABG HCO3 44 H* (21-25) mmol/L ABG Total CO2 45 H (19-24) mmol/L ABG O2 Saturation 98.1 H (94-97) % Potassium (3.5-5.1) mmol/L Chloride (98-107) mmol/L Carbon Dioxide (22-30) mmol/L BUN (7-17) mg/dL Glucose (74-99) mg/dL POC Glucose (mg/dL) 153 H 149 H (75-99) mg/dL Calcium (8.4-10.2) mg/dL Magnesium (1.6-2.3) mg/dL 05/20/18 05/20/18 05/20/18 Range/Units 00:20 05:40 05:40 WBC 32.0 H* (3.8-10.6) k/uL Hgb 11.0 L (11.4-16.0) gm/dL Neutrophils # 28.7 H (1.3-7.7) k/uL Lymphocytes # 0.8 L (1.0-4.8) k/uL Monocytes # 1.9 H (0-1.0) k/uL PT (9.0-12.0) sec INR (<1.2) APTT (22.0-30.0) sec ABG pH (7.35-7.45) ABG pCO2 (35-45) mmHg ABG HCO3 (21-25) mmol/L ABG Total CO2 (19-24) mmol/L ABG O2 Saturation (94-97) % Potassium 3.4 L (3.5-5.1) mmol/L Chloride 89 L (98-107) mmol/L Carbon Dioxide 43 H* (22-30) mmol/L BUN 52 H (7-17) mg/dL Glucose 176 H (74-99) mg/dL POC Glucose (mg/dL) 151 H (75-99) mg/dL Calcium 8.1 L (8.4-10.2) mg/dL Magnesium 2.7 H (1.6-2.3) mg/dL 05/20/18 05/20/18 Range/Units 05:40 06:36 WBC (3.8-10.6) k/uL Hgb (11.4-16.0) gm/dL Neutrophils # (1.3-7.7) k/uL Lymphocytes # (1.0-4.8) k/uL Monocytes # (0-1.0) k/uL PT 12.8 H (9.0-12.0) sec INR 1.4 H (<1.2) APTT 55.2 H (22.0-30.0) sec ABG pH (7.35-7.45) ABG pCO2 (35-45) mmHg ABG HCO3 (21-25) mmol/L ABG Total CO2 (19-24) mmol/L ABG O2 Saturation (94-97) % Potassium (3.5-5.1) mmol/L Chloride (98-107) mmol/L Carbon Dioxide (22-30) mmol/L BUN (7-17) mg/dL Glucose (74-99) mg/dL POC Glucose (mg/dL) 175 H (75-99) mg/dL Calcium (8.4-10.2) mg/dL Magnesium (1.6-2.3) mg/dL Microbiology - Last 24 Hours (Table) 05/19/18 11:15 Acid Fast Bacilli Smear - Final Bronchial Washings - Right Acid Fast Bacilli Culture - Preliminary 05/19/18 11:15 Gram Stain - Preliminary Bronchial Washings - Right Bronchial Washings Culture - Preliminary 05/19/18 11:15 Fungal Culture - Preliminary Bronchial Washings - Right 05/18/18 06:59 Blood Culture - Preliminary Blood No Growth after 24 hours 05/18/18 20:50 Gram Stain - Preliminary Sputum Sputum Culture - Preliminary Assessment and Plan Assessment: Assessment #1 acute respiratory failure #2 cardiopulmonary arrest #3 bilateral pneumonia #4 congestive heart failure secondary to systolic dysfunction and valvular heart disease #5 valvular heart disease with severe mitral stenosis and moderate to severe aortic stenosis #6 obstructive sleep apnea #7 morbid obesity Plan #1 currently the patient is intubated and she is on ventilator. #2 she is getting treated for bilateral pneumonia #3 continue the amiodarone by mouth at 400 mg twice a day #4 continue IV Lasix at 40 mg twice a day #5 continue anticoagulation with heparin and Coumadin #6 decrease the dose of Cardizem by mouth and try to wean the patient from Levophed. #7 follow-up with the patient.
[2018-05-20 07:46] LABS: ABG Base Excess 21.5 mmol/L; ABG Oxygen Saturation 96.6 % (94-97); ABG PCO2 56 mmHg (35-45); ABG PH 7.51 (7.35-7.45); ABG PO2 81 mmHg (83-108); ABG TCO2 46 mmol/L (19-24)
[2018-05-20 07:47] LABS: ABG HCO3 45 mmol/L (21-25)
--- NOTE | 2018-05-20 08:11 | XR ---
EXAMINATION TYPE: XR chest 1V DATE OF EXAM: 05/20/2018 COMPARISON: 05/19/2018 HISTORY: Ventilatory dependent respiratory failure TECHNIQUE: Single frontal view of the chest is obtained. FINDINGS: There are similar layering pleural effusions with worsening aeration in the right upper lo be in comparison to the prior. Patchy alveolar densities throughout both developed in the left midlun g. Cardiomediastinal silhouette is again enlarged. Lines and tubes are stable. Moderate multilevel de generative changes of the thoracic spine. IMPRESSION: Increasing alveolar edema in the right upper lobe and left perihilar region suggesting a component of fluid overload. Moderate right and small left pleural effusions with associated bibasil ar airspace disease remain.
[2018-05-20] MEDS ORDERED: FUROSEMIDE 10 MG/ML 4 ML VIAL IV STA (09:19)
[2018-05-20] MEDS ORDERED: VANCOMYCIN IV PER PHARMACY 1 EACH MISC MISCELLANE PRN (09:21)
[2018-05-20] MEDS: POTASSIUM BICARBONATE/CIT AC 20 MEQ TABLET.EFF NG-TUBE SCH ×2 (09:27→09:30)
[2018-05-20] MEDS: CHLORHEXIDINE GLUCONATE 15 ML CUP MUCOUS MEM SCH (09:28)
[2018-05-20] MEDS: AMIODARONE 200 MG TAB PO SCH ×2 (09:28→21:41)
[2018-05-20] MEDS: LACTULOSE 20 GM/30 ML CUP PO SCH ×3 (09:29→21:42)
[2018-05-20] MEDS: PANTOPRAZOLE 40 MG/10 ML VIAL IVP SCH (09:29)
[2018-05-20] MEDS: DILTIAZEM ORAL 30 MG TAB PO SCH ×3 (09:29→21:41)
[2018-05-20] MEDS: FUROSEMIDE 10 MG/ML 4 ML VIAL IV SCH ×2 (09:29→17:24)
[2018-05-20] MEDS: VANCOMYCIN 1,750 MG in SODIUM CHLORIDE 0.9% 500 ML IVPB SCH ×2 (09:52→22:13)
[2018-05-20 12:10] LABS: Glucose,Whole Blood 171 mg/dL (75-99)
--- NOTE | 2018-05-20 12:10 | P.PN ---
Subjective Progress Note Date: 05/20/18 Principal diagnosis: Acute hypoxic respiratory failure secondary to bilateral lower lobe pneumonia and congestive heart failure. A 77-year-old morbidly obese female patient with known history of obstructive sleep apnea maintained on BiPAP therapy on outpatient basis and addition to chronic bronchial asthma and significant limitation in exercise capacity secondary to her age body habitus and comorbidities, presented to the hospital because of an acute respiratory failure. I interviewed the daughter. Apparently the patient was at [employer] studies and she was getting progressively more short of breath. After arriving home she did [id number] breathing treatments without much relief. Ultimately she called her daughter who arrived to the scene and she saw that her mother was having more chest congestion, respirator distress, wheezing, and she was headed into respiratory failure. EMS was called to the scene. Upon arrival of EMS, the patient's pulse ox was in the low 70s pH was placed on on the percent nonrebreather facemask as she remained hypoxic and following that the patient was placed on BiPAP. The patient was moved to the emergency department. The patient was seen immediately after she arrived the ED. She was hypoxic, and she was cold and clammy and salmon color and cyanotic. As we were getting ready to intubate the patient, the patient lost pulse briefly and she became bradycardic. She went to the [facility]. She received a dose of epinephrine. She was started on CPR. Within 1 minute she recovered her pulse and the blood pressure. She was intubated and placed on a mechanical ventilator. She currently has a 7.[address] She is an assist-control mode of ventilation at the rate of 26, tidal volume of 400, FiO2 of 100% and a PEEP of 5. Immediately postintubation the blood pressure improved and she had a systolic above 200. She was started on propofol for sedation and her current systolic blood pressure in the 150s. A Poe catheter was inserted. The peak pressures in the 38-40 range. Static pressures around 32. The patient has significant bronchospasm and wheezing. A chest x-ray was done post intubation and post line placement and the chest x- ray showed no evidence of any pneumothorax. Bilateral air space disease was present in the perihilar regions in the lower lobes bilaterally right more than left. ET tube and NG tube were in good location. The patient also had a left subclavian triple-lumen catheter that was inserted without any complications. She was started on IV Zosyn knowing that the patient also briefly aspirated and vomited at the time of the intubation. Labs showed a white cell count of 22. The postintubation blood gas showed a pH of 7.21 with a pCO2 of 63 and pO2 of 88 and this blood gases on 100% FiO2. Initial lactic acid level was at 5.9 On today's evaluation of 05/12/2018 I'm seeing this patient for a follow-up. The patient remains intubated on a mechanical ventilator. Sedated with Diprivan at 30 mics per KG per minute. She is well sedated and she is synchronous with the mechanical ventilator. She is an assist-control mode of ventilation at the rate of 26 with a tidal volume of 400 and FiO2 of 60% with a PEEP of 5. The patient's chest x-ray from today is showing some mild improvement examination of the right midlung field. Otherwise the rest of the signs are all stable. ET tube is in a good location. The patient has consolidation of the right lung involving the right apex and the right lung base. There is also some perihilar pulmonary infiltrates bilaterally addition to some cardiomegaly. There is chronic elevation of the right hemidiaphragm. The blood gases from today showed a pH of 7.33 with a pCO2 of 47 and pO2 of 77 and it wasn't an FiO2 of 60%. The lactic acid level is down to 1.9 from 2.9 in addition. The patient was given briefly a sedation holiday and she was able to follow commands, simple commands and following that the patient was placed back on sedation. She did not require any pressors and the patient is maintaining home blood pressure. She was seen by cardiology today. Echocardiogram was done. The echo showed normal LV function with hypertensive heart disease and evidence of severe mitral stenosis with a mean gradient across the mitral valve of 20 mmHg as well as moderate to severe aortic stenosis with a mean gradient across the valve of 30 mmHg. The patient's cardiac rhythm is still sinus. She remains on broad-spectrum antibiotic coverage with a combination of Zosyn and Levaquin. The sputum cultures still negative for now. Blood cultures have been sent and the results are still negative for now. White cell count is elevated at 22.3. The patient was started on Lasix by cardiology 40 mg IV every 24 hours. She is also normal state rate of 40 mL an hour for now. On today's evaluation of 05/13/2018, the patient remains intubated on a mechanical ventilator. She is lightly sedated and the patient can easily aroused from propofol infusion. She remains on a mechanical ventilator the same vent setting. The blood gas from today, while on the 50% FiO2 showed a pH of 7.39 with a pCO2 of 40 and a pO2 of 81. White cell count is down to 17. The chest x-ray from today is showing persistent bilateral pulmonary infiltrates most on the right upper lobe and the right lower lobe. There is also small bilateral pleural effusion and cardiomegaly. ET tube remains in a good location. Cultures of been all negative thus far. The patient is afebrile and the patient is hemodynamically stable. Also, echocardiogram showed moderate to severe mitral stenosis and aortic valve stenosis and the patient was started on diuresis yesterday. I think we need to diurese this patient more aggressively over the next 24 hours. She'll feeds are running and the patient is tolerating her tube feeds without any major difficulties. Patient is producing adequate amount of urine output. Cardiac rhythm remains sinus. No other significant events over the past 24 hours. On 05/14/2089 seeing this patient for a follow-up. The patient remains intubated on a mechanical ventilator. She is on gentle sedation and she can easily aroused from her sedation and she can follow commands and answer questions appropriately. Her chest x-ray from today is showing some improvement in the aeration of the right lung. The patient has developed a consolidation and effusion the right lung base. The upper lobes are more clear. ET tube is in a good location. She remains on a mechanical ventilator. Assist-control mode of ventilation. She has a rate of 26, tidal volume of 400 , FiO2 is still at 60% with a PEEP of 5. Her blood gases from today showed a pH of 7.39 , pCO2 of 49 and pO2 of 81. I doubt the FiO2 down to 50%. I asked the nursing staff to stop the sedation completely and we checked her weaning parameters and the weaning parameters showed a NIF of -35 and vital Of 935 and the rapid shallow breathing index was less than 100. Based on that, the patient was given a spelled his breathing trial. She lasted for a total of 30 minutes. Following that she became tachycardic and cachectic. Blood gases obtained and the patient had a pH of 7.48 with a pCO2 of 48 and pO2 of 78. Nevertheless, based on ongoing shortness of breath, we decided not to extubate the patient knowing that she was not quite ready for extubation. Noted over the past 24 hours to monitor the patient has significant cardiac events. The patient went into an SVT. She was a rapid ventricular response. She had to be cardioverted. Subsequently she went into atrial fibrillation/flutter rhythm. Her rate is controlled for now. Nevertheless the patient is on Cardizem 30 mg by mouth 3 times a day. She was also placed on IV heparin by cardiology. As mentioned earlier she has valvular heart disease with severe mitral regurgitation stenosis. The diuretics have been cut down to 40 g IV Lasix every 12 hours. The net fluid balance is -2 L for yesterday. No fever. No chills. White cell count is down to 12.6. On 05/15/2018, patient is being seen in follow-up. He remains on a mechanical ventilator. Still on the same vent setting within assist-control mode at the rate of 26 with an FiO2 of 50% with a tidal volume of 400 and a PEEP of 5. The blood gas showed a pH of 7.45 with a pCO2 of 51 and pO2 of 91. No major improvement of the chest x-ray finding and the patient continues to have significant amount of bilateral airspace disease and bilateral pleural effusion more so on the right. The patient is in a controlled rhythm with atrial fibrillation. The patient is diuresing gently with IV Lasix. Unable to do aggressively diurese this patient because of evolving hypotension. The patient has severe mitral stenosis and approximately 2 fibrillation. The patient is also on broad-spectrum antibiotic coverage. She was given a sedation holiday and this point is breathing trial which she was able to tolerate for quite some time and following that she became short of breath and tachycardic and tachypneic and based on that the child was discontinued and the patient was not extubated. She is in a negative fluid balance. The net fluid balance for yesterday was -1.6 L. We are still diuresing this patient and she has a good urine output. She is afebrile. She is tolerating her tube feeds. She is very easily arousable and currently she is sedated with Diprivan. Overall no major changes and conditions compared to yesterday. I'm going to proceed with a CAT scan of the chest to characterized the pulmonary abnormalities. At the same time the patient was started on anticoagulation with warfarin. On 05/16/2018, patient was evaluated, and she remains on mechanical ventilation. Her ventilator settings are assist control rate of 26, tidal volume of 400, FiO2 of 50%, and PEEP of 5. ABG showed a pO2 of 78 pCO2 of 51 pH of 7.48. Patient is awake, responsive to all verbal commands, follows all instructions, hence I took her off propofol, and recommended a spontaneous breathing trial. Placed on pressure support of 10 with CPAP, however she only lasted about 20 minutes and she was noted to have increased respiratory rate, tachycardia, and she was developing a bit of respiratory distress. Hence the patient was switched back to assist control mode of mechanical ventilation. And I felt that she is not ready to be weaned. Ultrasound of the chest was done, there was evidence of less than 5 cm pocket of fluid on the right pleural space, hence I did not feel the patient would benefit much from thoracentesis, not to mention that is associated with thoracentesis considering the amount of fluid is small. All labs were reviewed, her renal profile seems to be relatively normal however her BUN is 53 creatinine is 0.70, more of a prerenal type of azothemia. CBC is relatively normal with minimal leukocytosis. Heparin is therapeutic for her atrial fibrillation. Hemodynamically, the patient is stable , and not requiring any norepinephrine at this point. Propofol is presently on hold. Nutrition is also address, and the patient is being fed with nasogastric tube/enteral feeding. Fluid balance noted over the last 24 hours to be about 90 mL positive. Hence the Lasix dose was increased to twice a day. On 05/17/2018, patient remains on mechanical ventilation, ventilator settings at present are tidal volume of 400, assist control rate of 16 FiO2 of 50% and PEEP of 5. ABG showed a pO2 of 134 pCO2 of 37 pH of 7.62. Patient is not breathing beyond the ventilator settings, hence I cut down her rate from 20-16. And I felt that the patient has significant metabolic alkalosis, but probably this patient's baseline pCO2 is normally in the 50s or 60s to begin with. So the alkalosis were noting is metabolic and respiratory in nature or alkalosis post correction of respiratory acidosis. At any rate we'll continue diuretics, her chest x-ray continues to show bilateral pleural effusion especially on the right side, but the ultrasound did not show enough fluid to safely perform a thoracentesis the pocket was less than 5 cm. Fluid balance is negative about 1258 in the last 24 hours. Urine output remains excellent. Renal functioning is about the same with a BUN of 53 creatinine of 0.70. Patient was placed on amiodarone by cardiology, and she is on heparin for atrial fibrillation. WBC count is 15.8 hemoglobin is 12.5. Patient is on 50 g of propofol, but she is awake, following all instructions, and I suggested that we discontinue propofol , wake of the patient, and given a trial of pressure support of 10 and CPAP. If tolerated we could potentially consider extubating the patient to BiPAP. If not tolerated a sugar go back on assist control mode of mechanical ventilation, higher dose of propofol to sedate her a bit more, and wait for another day to address weaning all over again. Patient was reevaluated today on 05/18/2018, remains on mechanical ventilation, ventilator settings are about the same, unchanged from yesterday. ABG showed a pO2 of 99 pCO2 of 49 pH of 7.51. Potassium is a bit low being corrected as per protocol. BUN remains 52 creatinine 0.66, patient remains on diuretics, repeat ultrasound of the chest continues to show very small tiny right-sided pleural effusion. Not large enough to consider thoracentesis. Chest x-ray is suggestive of central vascular congestion with right basilar consolidation, and small pleural effusion. Patient was taken off propofol, kept on assist control mode of mechanical ventilation, however she was noted to be extremely agitated and restless and tachypneic as well as tachycardic. Hence placed back on propofol, and clearly she is not amenable at this point. Discussed her condition with family at bedside, and we felt at this point patient may be ready for tracheostomy and PEG tube placement. She is going to be extremely difficult to wean. Radius attempts to wean the patient have failed and the patient has been now on mechanical ventilation for 8 days. Remains on the same medications, diuretics, amiodarone, DuoNeb updrafts, remains on antibiotics in the form of Levaquin and Zosyn. Cultures have been nondiagnostic, more sputum cultures were sent today. Nutrition-hassan the patient is receiving enteral feeding. She remains also on GI and DVT prophylaxis. Patient was reevaluated today on 05/19/2018, remains on mechanical ventilation, assist control mode of mechanical ventilation, FiO2 is now to 40%, assist control rate of 16, volume is 400, and PEEP is 5. ABG was noted, patient was given a trial of weaning, and even on assist control mode of mechanical ventilation, patient was breathing basically up in the high 20s and low 30s. As we went to pressure support and CPAP, patient looked extremely tachypnea, she was getting a bit tachycardic, and noted to show some signs of respiratory distress. Hence I updated the family on her condition, and suggested bronchoscopy and evaluation of the right lower lobe. This was done, and the fluid from the right lower lobe was sent for different diagnostic studies. Discussed with the family again plans for tracheostomy and PEG tube placement, apparently they discuss this with her when she was awakened off propofol, and they are all now in agreement that the patient would not have wanted this to begin with. So having said that, I believe were to try to proceed with daily weaning trials, and once we have a window of weaning, we will wean and extubate , and probably not to reintubate. Even if the patient fails and that will be further discussed again on again with the family and with the patient. They seem to be inclined to not consider trach and PEG, but will be willing to proceed with weaning and extubation and not to reintubate at that time we think it is best to extubate. White count is high today 32.3. Her ABG showed a pO2 of 96 pCO2 of 53 pH of 7.53. Basic metabolic profile is relatively normal, bicarb is 39 BUN is 47 creatinine is 0.6. Chest x-ray showed no major change, there is evidence of small pleural effusion, right lower lobe consolidation, and bibasilar airspace disease. Slight cardiac enlargement noted. Right diaphragm is elevated. Patient was reevaluated today on 05/20/2018, remains on mechanical ventilation, basically on the same ventilator settings, have not been changed. ABG showed a pO2 of 81 pCO2 of 56 pH of 7.51. Gram stain from the bronchial culture is showing many gram-positive cocci in clusters, hence I went ahead and added vancomycin to her present course of antibiotics empirically until the final culture is available. Family is all in the room today, and they basically have made a decision to extubate the patient to a noninvasive positive pressure ventilation, and if the patient does well, had to be great, if she doesn't do well, they will likely proceed with comfort care measures. This is all decided upon by all her family members and the patient herself. Hence the patient was taken off sedation, placed on pressure support mode of mechanical ventilation with a pressure support of 16, we have discontinued her propofol, discontinued all her sedation, and once the patient was awake, and responsive following instructions, she was switched to pressure support of 16 and CPAP. She seems to be doing well, in the meantime I have recommended diuretics since her chest x -ray was showing slight worsening she was given a dose of Lasix, and a dose of Diamox. Family is all in agreement to proceed with extubation, and again if not tolerated to proceed with comfort care measures. In the meantime the patient is DO NOT RESUSCITATE CODE STATUS. [place] [address], hemoglobin is 11, asymmetric metabolic profile was reviewed, bicarb is 43 BUN is 52 creatinine is 0.55. Objective - Vital Signs Vital signs: Vital Signs Temp 97.5 F L 05/20/18 08:00 Pulse 78 05/20/18 11:44 Resp 27 H 05/20/18 11:30 BP 114/49 05/20/18 11:30 Pulse Ox 96 05/20/18 11:30 Intake & Output 05/19/18 05/20/18 05/20/18 18:59 06:59 18:59 Intake Total 429.664 5407.423 232.57 Output Total 0290 541 8318 Balance -857.238 625.423 -1077.43 Weight 115.3 kg 115.3 kg Intake: IV 141 62.5 100 Piperacillin-Tazobactam 3 12.5 50 .375 gm In Dextrose/Water 1 50ml.bag @ 12.5 mls/hr IVPB Q8H NIRANJAN Rx#: [id number] Sodium Chloride 0.9% 1, 141 50 50 000 ml @ 10 mls/hr IV . Q24H NIRANJAN Rx#:[id number] Intake, IV Titration 121.762 774.923 84.57 Amount Heparin Sod,Pork in 0.45% 500 NaCl 25,000 unit In 0.45 % NaCl 1 500ml.bag @ 8.9 UNITS/KG/HR 19.93 mls/hr IV .Q24H NIRANJAN Rx#: [id number] Norepinephrine 16 mg In 25.401 Dextrose 5% in Water 250 ml @ Titrate IV .Q0M NIRANJAN Rx#:[id number] Propofol 1,000 mg In 96.361 274.923 84.57 Empty Bag 1 bag @ Titrate IV .Q0M NIRANJAN Rx#: [id number] Tube Feeding 240 168 48 Other 90 Output: Urine 9942 992 5706 Other: Voiding Method Indwelling Catheter Indwelling Catheter ABP, PAP, CO, CI - Last Documented Arterial Blood Pressure - Exam Physical Exam: Revealed a 77-year-old female, obese, on mechanical ventilation, in no distress while on assist control mode of mechanical ventilation. Head: Atraumatic, normocephalic. Endotracheal tube and orogastric tube are noted to be intact. HEENT:[Neck is supple.] [No neck masses.] [No thyromegaly.] [No JVD.] PERRLA, EOMI, moist mucous membranes, no icterus was noted. Left sided subclavian triple-lumen catheter is noted to be in place. Chest: [Symmetrical expansion, diminished breath sounds at the bases especially at the left base, with crackles. No rhonchi, no wheezes.] Cardiac Exam: [Irregular irregular rhythm Normal S1 and S2, no S3 gallop, no murmur.] Abdomen: Obese, [Soft, nontender, no megaly, no rebound, no guarding, normal bowel sounds.] Extremities: [No clubbing, no edema, no cyanosis.] Neurological Exam: [No focal neurologic deficit.] Alert oriented 3, this was done off propofol, and the patient seems to be neurologically intact. Psychiatric: Normal mood affect and mental status examination. Lymphatics: No lymphadenopathy. Skin: No rashes. Musculoskeletal: No limitations in range of motion. - Labs CBC & Chem 7: 05/20/18 05:40 05/20/18 05:40 Labs: Abnormal Lab Results - Last 24 Hours (Table) 05/19/18 05/20/18 05/20/18 Range/Units 17:06 00:20 05:40 WBC 32.0 H* (3.8-10.6) k/uL Hgb 11.0 L (11.4-16.0) gm/dL Neutrophils # 28.7 H (1.3-7.7) k/uL Lymphocytes # 0.8 L (1.0-4.8) k/uL Monocytes # 1.9 H (0-1.0) k/uL PT (9.0-12.0) sec INR (<1.2) APTT (22.0-30.0) sec ABG pH (7.35-7.45) ABG pCO2 (35-45) mmHg ABG pO2 (83-108) mmHg ABG HCO3 (21-25) mmol/L ABG Total CO2 (19-24) mmol/L Potassium (3.5-5.1) mmol/L Chloride (98-107) mmol/L Carbon Dioxide (22-30) mmol/L BUN (7-17) mg/dL Glucose (74-99) mg/dL POC Glucose (mg/dL) 149 H 151 H (75-99) mg/dL Calcium (8.4-10.2) mg/dL Magnesium (1.6-2.3) mg/dL 05/20/18 05/20/18 05/20/18 Range/Units 05:40 05:40 06:36 WBC (3.8-10.6) k/uL Hgb (11.4-16.0) gm/dL Neutrophils # (1.3-7.7) k/uL Lymphocytes # (1.0-4.8) k/uL Monocytes # (0-1.0) k/uL PT 12.8 H (9.0-12.0) sec INR 1.4 H (<1.2) APTT 55.2 H (22.0-30.0) sec ABG pH (7.35-7.45) ABG pCO2 (35-45) mmHg ABG pO2 (83-108) mmHg ABG HCO3 (21-25) mmol/L ABG Total CO2 (19-24) mmol/L Potassium 3.4 L (3.5-5.1) mmol/L Chloride 89 L (98-107) mmol/L Carbon Dioxide 43 H* (22-30) mmol/L BUN 52 H (7-17) mg/dL Glucose 176 H (74-99) mg/dL POC Glucose (mg/dL) 175 H (75-99) mg/dL Calcium 8.1 L (8.4-10.2) mg/dL Magnesium 2.7 H (1.6-2.3) mg/dL 05/20/18 Range/Units 07:45 WBC (3.8-10.6) k/uL Hgb (11.4-16.0) gm/dL Neutrophils # (1.3-7.7) k/uL Lymphocytes # (1.0-4.8) k/uL Monocytes # (0-1.0) k/uL PT (9.0-12.0) sec INR (<1.2) APTT (22.0-30.0) sec ABG pH 7.51 H (7.35-7.45) ABG pCO2 56 H (35-45) mmHg ABG pO2 81 L (83-108) mmHg ABG HCO3 45 H* (21-25) mmol/L ABG Total CO2 46 H (19-24) mmol/L Potassium (3.5-5.1) mmol/L Chloride (98-107) mmol/L Carbon Dioxide (22-30) mmol/L BUN (7-17) mg/dL Glucose (74-99) mg/dL POC Glucose (mg/dL) (75-99) mg/dL Calcium (8.4-10.2) mg/dL Magnesium (1.6-2.3) mg/dL Microbiology - Last 24 Hours (Table) 05/18/18 06:59 Blood Culture - Preliminary Blood No Growth after 48 hours 05/19/18 11:15 Acid Fast Bacilli Smear - Final Bronchial Washings - Right Acid Fast Bacilli Culture - Preliminary 05/19/18 11:15 Gram Stain - Preliminary Bronchial Washings - Right Bronchial Washings Culture - Preliminary 05/19/18 11:15 Fungal Culture - Preliminary Bronchial Washings - Right Assessment and Plan Assessment: 1 acute hypoxic respiratory failure with bilateral lower lobe pneumonia and possibly component of diastolic CHF. The patient presented emergency department with acute respiratory arrest, intubated and placed on a mechanical ventilator On 05/12/2018 the patient remains intubated on a mechanical ventilator. There is improvement in oxygenation and FiO2 has been drop down to 60%. There is also further weaning the FiO2 down knowing that the patient's pulse ox and the pO2 is above 100. Meanwhile, the sputum cultures still pending. The patient is on a broad-spectrum antibiotic coverage with a combination of Zosyn and Levaquin. The patient is still sedated on a mechanical ventilator, intubated. On 05/13/2018, the patient remains on a mechanical ventilator. The patient is oxygenating and ventilating well. She is on the same antibiotic coverage. There is persistent but the pulmonary consolidation and infiltrates most on the right. The patient is on Zosyn and Levaquin the patient will be started on diuretics should there be a component of interstitial/pulmonary edema in association with his underlying pneumonia. Cultures of been all negative thus far. The patient remains hemodynamically stable. On 05/14/2018, the patient is still on a mechanical ventilator. There is some improvement in the chest x-ray findings and the patient is not ready for extubation yet. Hemodynamically stable for now. Overnight the patient had issues with SVT and currently she is in atrial fibrillation with a controlled rate. She is being diuresed gently. She is also being covered with broad- spectrum antibiotics regarding bilateral pneumonia. The sputum culture is negative for now. On 05/15/2018 I'm not seeing any major change in the patient's chest x-ray finding. She still has bilateral airspace disease probably combination of pneumonia fluids. The patient initially suspected to have pneumonia. Subsequently she was found to have severe mitral stenosis and regurgitation which probably is contributing to her respiratory failure. She has severe valvular heart disease and please refer to the echocardiogram results. She remains on broad-spectrum antibiotics. CAT scan of the chest was noted and reviewed. On 05/16/2018, and attempt of weaning was done, patient was placed on a pressure support of 10 and CPAP, noted to develop significant tachypnea, tachycardia, hence no more attempts were made, patient was placed back on assist control mode of mechanical ventilation. On 05/19/2018, patient underwent bronchoscopy and bronchoalveolar lavage of the right lower lobe. Again failed an attempt of weaning using pressure support and CPAP. Patient was noted to be quite tachypneic, and tachycardic at the time of bleeding with a pressure support of 12 and CPAP. On 05/20/2018, patient was extubated, extubated to BiPAP with a IPAP of 16 and EPAP of 8. FiO2 will be kept at 50%. Again the plan is to continue present treatment plan, and the patient fails, comfort care measures will be instituted as per the wishes of the patient and her family. In the meantime I have recommended more diuretics, and vancomycin was added. Mostly because of the Gram stain from the bronchial washing is showing gram-positive cocci in clusters. This would be suspicious for MRSA, but final report is pending. Hence empiric vancomycin would be indicated at this point. 2 bilateral lower lobe pneumonia with airspace disease and consolidations. Bronchoscopy was performed on 05/19/2018. 3 acute cardiac pulmonary arrest with brief loss in progress where the patient received CPR and received a dose of epinephrine with return of spontaneous circulation. Currently on no pressors. No signs of any hypoxic encephalopathy and the patient was given a brief sedation holiday and she was able to follow simple commands without any major difficulties 4 lactic acidosis secondary to above, improving and recovered 5 leukocytosis secondary to above, improving, and recovered 6 morbid obesity with a BMI of 43.4 7 obstructive sleep apnea 8 severe persistent bronchial asthma 9 history of right hemidiaphragmatic plication for unilateral paralysis 10 moderate to severe severe aortic stenosis and mitral stenosis, with a preserved LV function as evident on the echocardiogram 11 history of TIA 12 nephrolithiasis 13 gouty arthritis 14 hypothyroidism 13 hypertension 16 hyperlipidemia 17 history of atrial fibrillation on Rythmol and her current rhythm is back in atrial fibrillation with a controlled rate. 18 acid reflux 19 gout 20 degenerative arthritis 21 episodes of SVT, cardioverted 22 right sided pleural effusion, seen on ultrasound to be less than 5 cm, not safe to perform thoracentesis. Recommendation: I had a long discussion with all the family members at bedside, including the son and the daughter and explained the clinical situation of the patient, explained all the findings, and again they prefer that she gets extubated to noninvasive mode of mechanical ventilation, and based on how she does further recommendations will be addressed accordingly. May consider comfort care measures if the patient fails extubation to BiPAP. In the meantime continue DO NOT RESUSCITATE CODE STATUS, continue present supportive care measures, will continue to follow closely. Prognosis is definitely poor and guarded, patient remains critically ill. Critical care time is 40 minutes. Time with Patient: Greater than 30
[2018-05-20] MEDS: SODIUM CHLORIDE 0.9% 1,000 ML IV SCH (12:32)
[2018-05-20] MEDS: HEPARIN SOD,PORK IN 0.45% NACL 25,000 UNIT in 0.45% NACL 1 500ML.BAG IV SCH (16:21)
--- NOTE | 2018-05-20 17:08 | P.PN ---
Subjective Progress Note Date: 05/19/18 Prognosis note being dictated for Dr. Calderon Interval history:Patient is on 73-year-old female with a known history of obstructive sleep apnea on biPAP, Hypothyroidism, valvular heart disease with aortic stenosis and congestive heart failure and multiple other medical problems including morbid obesity presented to hospital with worsening shortness of breath. Patient was at [facility] studies where she had progressive shortness of breath. Patient's pulse ox was low 70s upon EMS arrival. Patient was placed on 100% nonrebreather but the patient remained hypoxic. Patient was placed on BiPAP. And was transferred to ER. Patient was given breathing treatments while in the ER without much relief. Patient was subsequently intubated due to acute hypoxic respiratory failure. Currently patient is intubated and is in the medical intensive care unit. Chest x-ray showed no evidence of pneumothorax. Bilateral air space disease was present in the perihilar region in the lower lobes bilaterally right more than left. WC count was 22 on admission. Lactic acid 5.9 on admission ABG showed pH of 7.21 pCO2 63 and PaO2 88 with 100% FiO2. Patient is currently on Solu-Medrol 60 g every 6 hourly along with duo nebs and antibiotics in the form of levofloxacin and Zosyn. Cardiology and pulmonary is following. Chest x-ray this morning showed mildly improved aeration of the right lung otherwise stable 2-D echocardiogram showed ejection fraction 50-55% with severe severe mitral stenosis and severe aortic stenosis. Review of Systems Patient is currently intubated and sedated. Complete review of systems could not be apparent from the patient 05/13/2018 remains vent dependent, FiO2 50%/+5 of PEEP. Maintained on DIprovan. Telemetry sinus rhythm. Diuresing well on Lasix IV push with 24- hour I&O reflecting a negative fluid balance. Chest x-ray stable, persistent scattered infiltrates to bilateral lungs greatest in the right lung, small bilateral pleural effusions. Maintained on Zosyn and Levaquin .T-max 99.1, leukocytosis improving, sputum culture pending, preliminary blood cultures negative. Tolerating tube feeds with minimal to no residuals. IV fluids PIVL' D. 05/14/2018 Patient is currently vent dependent with assist control. Patient was tried for weaning today but patient was agitated and was sedated again. Patient is being continued on IV Lasix and Cardizem has been changed to oral. Patient went into atrial fibrillation with rapid ventricular rate last night and was started on Cardizem.. Pulmonary and cardiology is following. Chest x-ray showed slight improvement. 05/15/2018 Patient is currently on mechanical ventilator. Currently heart rate is controlled with Cardizem oral. Patient is in atrial fibrillation but heart rate is controlled. CT chest showed bilateral pleural effusion and cardiomegaly. Patient is being continued on Lasix 40 mg daily due to marginal blood pressure and severe underlying valvular heart disease. Cardiology and pulmonary is following. 05/16/2018 remains vent dependent, FiO2 40%/+5 of PEEP. Currently sinus rhythm ; A. fib with controlled ventricular rate last night. Anticoagulated on heparin drip.CPAP trial attempted, tolerated approximately 20 minutes, became tachypneic, tachycardic. Maintained on Diprivan. Chest x-ray reported stable moderate right pleural effusion Chest ultrasound reporting small right pleural effusion, less than 5 cm, not marked for thoracentesis. BUN 53, creatinine 0.7. Diuresing on Lasix IV push, 24-hour I&O reflecting a positive fluid balance, Lasix increased. 05/17/2018 ABGs revealing metabolic alkalosis. Chest x-ray reporting continued right lower lung moderate opacity and small left effusion. Diuresing well on Lasix IV push with 24-hour I&O reflecting a negative fluid balance. Maintained on vent support with FiO2 of 50/+5 of PEEP. Currently on CPAP trial. Amiodarone drip added to med regime as per cardiology. 05/18/2018 maintained on vent support, FiO2 50%/+5 of PEEP ,sedated on Diprovan. Levophed initiated last night, currently at 2 mcgs. Amiodarone drip converted to oral. Continues on heparin drip, Levaquin and Zosyn. Sputum culture repeated today. Diuresing well on Lasix IV push with 24-hour I&O reflecting a negative fluid balance. Receiving potassium supplementation for potassium of 2.9.Yesterday during the CPAP trial developed a nonsustained 10 beat run of V. tach, asymptomatic. Earlier today Diprovan held, became tachypneic with respiratory rate increased into the high 30s, tachycardic; unable to proceed with CPAP trial today. Evaluated by vascular/ cardiothoracic surgeon Dr. Melton for potential trach and PEG with recommendations noted. Chest x-ray reporting overall stable, mild central vascular congestion ,small to moderate size right greater than left pleural effusions, bibasilar atelectasis/infiltrates. Chest ultrasound reporting bilateral small pleural effusions with neither side marked for potential thoracentesis. 05/19/2018 remains vent dependent. Tolerated holiday sedation, proceed with CPAP but unable to tolerate due to respiratory distress, became tachycardic, tachypneic with respiratory rate up into the 30s. Underwent bronchoscopy this morning, reporting right lower lobe pneumonia with tracheobronchomalacia. Family has declined trach and PEG. Telemetry currently sinus rhythm.chest x-ray similar with right hemidiaphragm elevation, bibasilar atelectasis, improving pulmonary vascular congestion noted.Family has declined trach and PEG. Planning for extubation tomorrow with no reintubation. WBC 32.3. ABGs noted. Objective - Vital Signs Vital signs: Vital Signs Temp 98.8 F 05/19/18 04:00 Pulse 83 05/19/18 11:20 Resp 23 05/19/18 07:00 BP 111/50 05/19/18 07:00 Pulse Ox 95 05/19/18 07:00 Intake & Output 05/18/18 05/19/18 05/19/18 18:59 06:59 18:59 Intake Total 8262.899 6380.289 117.729 Output Total 1860 1175 Balance -744.753 100.289 117.729 Weight 110 kg 115.3 kg Intake: IV 166.5 220 10 Piperacillin-Tazobactam 3 26.5 100 .375 gm In Dextrose/Water 1 50ml.bag @ 12.5 mls/hr IVPB Q8H NIRANJAN Rx#: [id number] Sodium Chloride 0.9% 1, 140 120 10 000 ml @ 10 mls/hr IV . Q24H NIRANJAN Rx#:[id number] Intake, IV Titration 555.747 743.289 83.729 Amount Heparin Sod,Pork in 0.45% 195.081 304.919 NaCl 25,000 unit In 0.45 % NaCl 1 500ml.bag @ 8.9 UNITS/KG/HR 19.93 mls/hr IV .Q24H NIRANJAN Rx#: [id number] Norepinephrine 16 mg In 2.558 25.401 Dextrose 5% in Water 250 ml @ Titrate IV .Q0M NIRANJAN Rx#:[id number] Propofol 1,000 mg In 358.108 438.37 58.328 Empty Bag 1 bag @ Titrate IV .Q0M NIRANJAN Rx#: [id number] Tube Feeding 363 312 24 Other 30 Output: Urine 1860 1175 Other: Voiding Method Indwelling Catheter Indwelling Catheter ABP, PAP, CO, CI - Last Documented Arterial Blood Pressure - Exam Patient is lying in the bed, no acute distress, sedated and intubated. HEENT: Normocephalic. Neck is supple. Pupils reactive. Oral cavity is dry Neck reveals no JVD, carotid bruits, or thyromegaly. CHEST EXAMINATION: Trachea is central. Symmetrical expansion. Endotracheal tube present. Scattered rhonchi with Fine left bibasilar crackles with no rhonchi, no wheezes. CARDIAC: Normal S1, S2, irregular with no gallops. no murmur ABDOMEN: Soft. Bowel sounds normal. No organomegaly. No abdominal bruits. Extremities: reveal no edema. No clubbing or cyanosis Neurologically Unable to assess, patient currently intubated and sedated on DIprovan Microbiology 05/11/18 15:56 Blood Blood Culture - Final No Growth after 144 hours 05/11/18 21:09 Sputum Gram Stain - Final 05/11/18 21:09 Sputum Sputum Culture - Final - Labs CBC & Chem 7: 05/20/18 05:40 05/20/18 05:40 Labs: Abnormal Lab Results - Last 24 Hours (Table) 05/18/18 05/18/18 05/18/18 Range/Units 17:00 17:54 23:44 WBC (3.8-10.6) k/uL Neutrophils # (1.3-7.7) k/uL Lymphocytes # (1.0-4.8) k/uL Monocytes # (0-1.0) k/uL PT (9.0-12.0) sec INR (<1.2) APTT (22.0-30.0) sec ABG pH (7.35-7.45) ABG pCO2 (35-45) mmHg ABG HCO3 (21-25) mmol/L ABG Total CO2 (19-24) mmol/L ABG O2 Saturation (94-97) % Potassium 3.1 L (3.5-5.1) mmol/L Chloride (98-107) mmol/L Carbon Dioxide (22-30) mmol/L BUN (7-17) mg/dL Glucose (74-99) mg/dL POC Glucose (mg/dL) 167 H 167 H (75-99) mg/dL Magnesium (1.6-2.3) mg/dL 05/19/18 05/19/18 05/19/18 Range/Units 05:35 05:35 05:35 WBC 32.3 H* (3.8-10.6) k/uL Neutrophils # 29.2 H (1.3-7.7) k/uL Lymphocytes # 0.8 L (1.0-4.8) k/uL Monocytes # 1.7 H (0-1.0) k/uL PT 13.4 H (9.0-12.0) sec INR 1.4 H (<1.2) APTT 51.1 H (22.0-30.0) sec ABG pH (7.35-7.45) ABG pCO2 (35-45) mmHg ABG HCO3 (21-25) mmol/L ABG Total CO2 (19-24) mmol/L ABG O2 Saturation (94-97) % Potassium (3.5-5.1) mmol/L Chloride 93 L (98-107) mmol/L Carbon Dioxide 39 H (22-30) mmol/L BUN 47 H (7-17) mg/dL Glucose 179 H (74-99) mg/dL POC Glucose (mg/dL) (75-99) mg/dL Magnesium 2.5 H (1.6-2.3) mg/dL 05/19/18 05/19/18 05/19/18 Range/Units 06:22 07:27 11:58 WBC (3.8-10.6) k/uL Neutrophils # (1.3-7.7) k/uL Lymphocytes # (1.0-4.8) k/uL Monocytes # (0-1.0) k/uL PT (9.0-12.0) sec INR (<1.2) APTT (22.0-30.0) sec ABG pH 7.53 H (7.35-7.45) ABG pCO2 53 H (35-45) mmHg ABG HCO3 44 H* (21-25) mmol/L ABG Total CO2 45 H (19-24) mmol/L ABG O2 Saturation 98.1 H (94-97) % Potassium (3.5-5.1) mmol/L Chloride (98-107) mmol/L Carbon Dioxide (22-30) mmol/L BUN (7-17) mg/dL Glucose (74-99) mg/dL POC Glucose (mg/dL) 178 H 153 H (75-99) mg/dL Magnesium (1.6-2.3) mg/dL Microbiology - Last 24 Hours (Table) 05/18/18 06:59 Blood Culture - Preliminary Blood No Growth after 24 hours 05/18/18 20:50 Gram Stain - Preliminary Sputum Sputum Culture - Preliminary Assessment and Plan Assessment: Acute hypoxic respiratory failure. Multifactorial secondary to bilateral lower lobe pneumonia ,CHF and COPD. Currently patient is intubated. (Bilateral lower lobe pneumonia. Right greater than left) Acute cardio pulmonary arrest with brief loss of pulse status post CPR and a dose of epinephrine with return of spontaneous circulation. Lactic acidosis 5.9 on admission improving, recovered Sepsis secondary to pneumonia Obstructive sleep apnea on BiPAP at home Morbid obesity with BMI 44.9 with possible underlying obesity hypoventilation Acute on chronic CHF with systolic dysfunction as well as valvular heart disease History of right hemidiaphragmatic plication for unilateral paralysis History of TIA Nephrolithiasis Osteoarthritis Hypothyroidism with low free T4 level and elevated TSH. Uncontrolled History of atrial fibrillation. Paroxysmal. Currently in sinus rhythm on Rythmol GERD Gout status post bronchoscopy with lavage of right lower lobe No Code, no CPR as per family's wishes. Plan: Continue on current medication regime ,monitoring and symptomatic treatment. Trach and PEG And declined by both patient and family. Planning extubation to possibly BiPAP with no reintubation tomorrow. Comfort care discussed. Prognosis guarded given multiple complex medical issues. The impression and plan of care has been dictated as directed. : I performed a history and examination of this patient, discussed the same with the dictator. I agree with the dictator's note ,documented as a scribe. Any additional findings or plans will be noted.
--- NOTE | 2018-05-20 17:25 | P.PN ---
Subjective Progress Note Date: 05/20/18 Prognosis note being dictated for Dr. Calderon Interval history:Patient is on 73-year-old female with a known history of obstructive sleep apnea on biPAP, Hypothyroidism, valvular heart disease with aortic stenosis and congestive heart failure and multiple other medical problems including morbid obesity presented to hospital with worsening shortness of breath. Patient was at [facility] studies where she had progressive shortness of breath. Patient's pulse ox was low 70s upon EMS arrival. Patient was placed on 100% nonrebreather but the patient remained hypoxic. Patient was placed on BiPAP. And was transferred to ER. Patient was given breathing treatments while in the ER without much relief. Patient was subsequently intubated due to acute hypoxic respiratory failure. Currently patient is intubated and is in the medical intensive care unit. Chest x-ray showed no evidence of pneumothorax. Bilateral air space disease was present in the perihilar region in the lower lobes bilaterally right more than left. WC count was 22 on admission. Lactic acid 5.9 on admission ABG showed pH of 7.21 pCO2 63 and PaO2 88 with 100% FiO2. Patient is currently on Solu-Medrol 60 g every 6 hourly along with duo nebs and antibiotics in the form of levofloxacin and Zosyn. Cardiology and pulmonary is following. Chest x-ray this morning showed mildly improved aeration of the right lung otherwise stable 2-D echocardiogram showed ejection fraction 50-55% with severe severe mitral stenosis and severe aortic stenosis. Review of Systems Patient is currently intubated and sedated. Complete review of systems could not be apparent from the patient 05/13/2018 remains vent dependent, FiO2 50%/+5 of PEEP. Maintained on DIprovan. Telemetry sinus rhythm. Diuresing well on Lasix IV push with 24- hour I&O reflecting a negative fluid balance. Chest x-ray stable, persistent scattered infiltrates to bilateral lungs greatest in the right lung, small bilateral pleural effusions. Maintained on Zosyn and Levaquin .T-max 99.1, leukocytosis improving, sputum culture pending, preliminary blood cultures negative. Tolerating tube feeds with minimal to no residuals. IV fluids PIVL' D. 05/14/2018 Patient is currently vent dependent with assist control. Patient was tried for weaning today but patient was agitated and was sedated again. Patient is being continued on IV Lasix and Cardizem has been changed to oral. Patient went into atrial fibrillation with rapid ventricular rate last night and was started on Cardizem.. Pulmonary and cardiology is following. Chest x-ray showed slight improvement. 05/15/2018 Patient is currently on mechanical ventilator. Currently heart rate is controlled with Cardizem oral. Patient is in atrial fibrillation but heart rate is controlled. CT chest showed bilateral pleural effusion and cardiomegaly. Patient is being continued on Lasix 40 mg daily due to marginal blood pressure and severe underlying valvular heart disease. Cardiology and pulmonary is following. 05/16/2018 remains vent dependent, FiO2 40%/+5 of PEEP. Currently sinus rhythm ; A. fib with controlled ventricular rate last night. Anticoagulated on heparin drip.CPAP trial attempted, tolerated approximately 20 minutes, became tachypneic, tachycardic. Maintained on Diprivan. Chest x-ray reported stable moderate right pleural effusion Chest ultrasound reporting small right pleural effusion, less than 5 cm, not marked for thoracentesis. BUN 53, creatinine 0.7. Diuresing on Lasix IV push, 24-hour I&O reflecting a positive fluid balance, Lasix increased. 05/17/2018 ABGs revealing metabolic alkalosis. Chest x-ray reporting continued right lower lung moderate opacity and small left effusion. Diuresing well on Lasix IV push with 24-hour I&O reflecting a negative fluid balance. Maintained on vent support with FiO2 of 50/+5 of PEEP. Currently on CPAP trial. Amiodarone drip added to med regime as per cardiology. 05/18/2018 maintained on vent support, FiO2 50%/+5 of PEEP ,sedated on Diprovan. Levophed initiated last night, currently at 2 mcgs. Amiodarone drip converted to oral. Continues on heparin drip, Levaquin and Zosyn. Sputum culture repeated today. Diuresing well on Lasix IV push with 24-hour I&O reflecting a negative fluid balance. Receiving potassium supplementation for potassium of 2.9.Yesterday during the CPAP trial developed a nonsustained 10 beat run of V. tach, asymptomatic. Earlier today Diprovan held, became tachypneic with respiratory rate increased into the high 30s, tachycardic; unable to proceed with CPAP trial today. Evaluated by vascular/ cardiothoracic surgeon Dr. Melton for potential trach and PEG with recommendations noted. Chest x-ray reporting overall stable, mild central vascular congestion ,small to moderate size right greater than left pleural effusions, bibasilar atelectasis/infiltrates. Chest ultrasound reporting bilateral small pleural effusions with neither side marked for potential thoracentesis. 05/19/2018 remains vent dependent. Tolerated holiday sedation, proceed with CPAP but unable to tolerate due to respiratory distress, became tachycardic, tachypneic with respiratory rate up into the 30s. Underwent bronchoscopy this morning, reporting right lower lobe pneumonia with tracheobronchomalacia. Family has declined trach and PEG. Telemetry currently sinus rhythm.chest x-ray similar with right hemidiaphragm elevation, bibasilar atelectasis, improving pulmonary vascular congestion noted.Family has declined trach and PEG. Planning for extubation tomorrow with no reintubation. WBC 32.3. ABGs noted. 05/20/2018 extubated to BiPAP. Bicarb 43, BUN 52, creatinine 0.55. Levophed weaned off earlier this am. Chest x-ray mildly worsened, Diamox and Lasix ordered. Telemetry sinus rhythm, Cardizem dose decreased and on oral amiodarone. Bronch cultures currently reporting many gram-positive cocci in clusters, vancomycin added to med regime. WBC 32. Objective - Vital Signs Vital signs: Vital Signs Temp 97.5 F L 05/20/18 08:00 Pulse 78 05/20/18 11:44 Resp 27 H 05/20/18 11:30 BP 114/49 05/20/18 11:30 Pulse Ox 96 05/20/18 11:30 Intake & Output 05/19/18 05/20/18 05/20/18 18:59 06:59 18:59 Intake Total 320.148 7882.423 232.57 Output Total 2789 975 2552 Balance -857.238 625.423 -1077.43 Weight 115.3 kg 115.3 kg Intake: IV 141 62.5 100 Piperacillin-Tazobactam 3 12.5 50 .375 gm In Dextrose/Water 1 50ml.bag @ 12.5 mls/hr IVPB Q8H NIRANJAN Rx#: [id number] Sodium Chloride 0.9% 1, 141 50 50 000 ml @ 10 mls/hr IV . Q24H NIRANJAN Rx#:[id number] Intake, IV Titration 121.762 774.923 84.57 Amount Heparin Sod,Pork in 0.45% 500 NaCl 25,000 unit In 0.45 % NaCl 1 500ml.bag @ 8.9 UNITS/KG/HR 19.93 mls/hr IV .Q24H NIRANJAN Rx#: [id number] Norepinephrine 16 mg In 25.401 Dextrose 5% in Water 250 ml @ Titrate IV .Q0M NIRANJAN Rx#:[id number] Propofol 1,000 mg In 96.361 274.923 84.57 Empty Bag 1 bag @ Titrate IV .Q0M NIRANJAN Rx#: [id number] Tube Feeding 240 168 48 Other 90 Output: Urine 4390 212 7901 Other: Voiding Method Indwelling Catheter Indwelling Catheter ABP, PAP, CO, CI - Last Documented Arterial Blood Pressure / - Exam Patient is sitting up in bed, alert, extubated, on BiPAP HEENT: Normocephalic. Neck is supple. Pupils reactive. Oral cavity is dry Neck reveals no JVD, carotid bruits, or thyromegaly. CHEST EXAMINATION: Trachea is central. Symmetrical expansion. Fine left bibasilar crackles with no rhonchi, no wheezes. CARDIAC: Normal S1, S2, irregular with no gallops. no murmur ABDOMEN: Soft. Bowel sounds normal. No organomegaly. No abdominal bruits. Extremities: reveal no edema. No clubbing or cyanosis Neurologically alert and oriented 3, following commands appropriately Microbiology 05/11/18 15:56 Blood Blood Culture - Final No Growth after 144 hours 05/11/18 21:09 Sputum Gram Stain - Final 05/11/18 21:09 Sputum Sputum Culture - Final - Labs CBC & Chem 7: 05/20/18 05:40 05/20/18 05:40 Labs: Abnormal Lab Results - Last 24 Hours (Table) 05/19/18 05/19/18 05/20/18 Range/Units 11:58 17:06 00:20 WBC (3.8-10.6) k/uL Hgb (11.4-16.0) gm/dL Neutrophils # (1.3-7.7) k/uL Lymphocytes # (1.0-4.8) k/uL Monocytes # (0-1.0) k/uL PT (9.0-12.0) sec INR (<1.2) APTT (22.0-30.0) sec ABG pH (7.35-7.45) ABG pCO2 (35-45) mmHg ABG pO2 (83-108) mmHg ABG HCO3 (21-25) mmol/L ABG Total CO2 (19-24) mmol/L Potassium (3.5-5.1) mmol/L Chloride (98-107) mmol/L Carbon Dioxide (22-30) mmol/L BUN (7-17) mg/dL Glucose (74-99) mg/dL POC Glucose (mg/dL) 153 H 149 H 151 H (75-99) mg/dL Calcium (8.4-10.2) mg/dL Magnesium (1.6-2.3) mg/dL 05/20/18 05/20/18 05/20/18 Range/Units 05:40 05:40 05:40 WBC 32.0 H* (3.8-10.6) k/uL Hgb 11.0 L (11.4-16.0) gm/dL Neutrophils # 28.7 H (1.3-7.7) k/uL Lymphocytes # 0.8 L (1.0-4.8) k/uL Monocytes # 1.9 H (0-1.0) k/uL PT 12.8 H (9.0-12.0) sec INR 1.4 H (<1.2) APTT 55.2 H (22.0-30.0) sec ABG pH (7.35-7.45) ABG pCO2 (35-45) mmHg ABG pO2 (83-108) mmHg ABG HCO3 (21-25) mmol/L ABG Total CO2 (19-24) mmol/L Potassium 3.4 L (3.5-5.1) mmol/L Chloride 89 L (98-107) mmol/L Carbon Dioxide 43 H* (22-30) mmol/L BUN 52 H (7-17) mg/dL Glucose 176 H (74-99) mg/dL POC Glucose (mg/dL) (75-99) mg/dL Calcium 8.1 L (8.4-10.2) mg/dL Magnesium 2.7 H (1.6-2.3) mg/dL 05/20/18 05/20/18 Range/Units 06:36 07:45 WBC (3.8-10.6) k/uL Hgb (11.4-16.0) gm/dL Neutrophils # (1.3-7.7) k/uL Lymphocytes # (1.0-4.8) k/uL Monocytes # (0-1.0) k/uL PT (9.0-12.0) sec INR (<1.2) APTT (22.0-30.0) sec ABG pH 7.51 H (7.35-7.45) ABG pCO2 56 H (35-45) mmHg ABG pO2 81 L (83-108) mmHg ABG HCO3 45 H* (21-25) mmol/L ABG Total CO2 46 H (19-24) mmol/L Potassium (3.5-5.1) mmol/L Chloride (98-107) mmol/L Carbon Dioxide (22-30) mmol/L BUN (7-17) mg/dL Glucose (74-99) mg/dL POC Glucose (mg/dL) 175 H (75-99) mg/dL Calcium (8.4-10.2) mg/dL Magnesium (1.6-2.3) mg/dL Microbiology - Last 24 Hours (Table) 05/18/18 06:59 Blood Culture - Preliminary Blood No Growth after 48 hours 05/19/18 11:15 Acid Fast Bacilli Smear - Final Bronchial Washings - Right Acid Fast Bacilli Culture - Preliminary 05/19/18 11:15 Gram Stain - Preliminary Bronchial Washings - Right Bronchial Washings Culture - Preliminary 05/19/18 11:15 Fungal Culture - Preliminary Bronchial Washings - Right Assessment and Plan Assessment: Acute hypoxic respiratory failure. Multifactorial secondary to bilateral lower lobe pneumonia ,CHF and COPD. extubated to BiPAP (Bilateral lower lobe pneumonia. Right greater than left) Acute cardio pulmonary arrest with brief loss of pulse status post CPR and a dose of epinephrine with return of spontaneous circulation. Lactic acidosis 5.9 on admission improving, recovered Sepsis secondary to pneumonia Obstructive sleep apnea on BiPAP at home Morbid obesity with BMI 44.9 with possible underlying obesity hypoventilation Acute on chronic CHF with systolic dysfunction as well as valvular heart disease History of right hemidiaphragmatic plication for unilateral paralysis History of TIA Nephrolithiasis Osteoarthritis Hypothyroidism with low free T4 level and elevated TSH. Uncontrolled History of atrial fibrillation. Paroxysmal. Currently in sinus rhythm on Rythmol GERD Gout status post bronchoscopy with lavage of right lower lobe No Code, no CPR as per family's wishes. Plan: Continue on current medication regime ,monitoring and symptomatic treatment.Extubated to BiPAP with no reintubation. Family at bedside, questions addressed, support given. Prognosis guarded given multiple complex medical issues. The impression and plan of care has been dictated as directed. : I performed a history and examination of this patient, discussed the same with the dictator. I agree with the dictator's note ,documented as a scribe. Any additional findings or plans will be noted.
[2018-05-20] MEDS ORDERED: WARFARIN 2 MG TAB PO ONE (18:00)
[2018-05-20 18:11] LABS: Glucose,Whole Blood 140 mg/dL (75-99)
[2018-05-20] MEDS: LACTATED RINGERS 1,000 ML IV SCH (18:12)
[2018-05-20] MEDS: LEVOFLOXACIN 750MG-D5W PMX 750 MG in DEXTROSE/WATER 1 150ML.BAG IVPB SCH (18:28)
[2018-05-20 23:46] LABS: Glucose,Whole Blood 128 mg/dL (75-99)
[2018-05-21] MEDS: PIPERACILLIN-TAZOBACTAM 3.375 GM in DEXTROSE/WATER 1 50ML.BAG IVPB SCH ×3 (04:04→21:08)
[2018-05-21 06:53] LABS: Basophils % (A) 0 %; Eosinophils % (A) 0 %; Lymphocytes # (A) 0.7 k/uL (1.0-4.8); Lymphocytes % (A) 4 %; MCH 28.8 pg (25.0-35.0); MCHC 32.3 g/dL (31.0-37.0); MCV 89.3 fL (80.0-100.0); Mean Platelet Volume 7.5; Monocytes # (A) 0.6 k/uL (0-1.0); Monocytes % (A) 3 %; Neutrophils # (A) 17.6 k/uL (1.3-7.7); Neutrophils % (A) 92 %; Platelet Count 172 k/uL (150-450); RBC 3.81 m/uL (3.80-5.40); RDW 14.5 % (11.5-15.5); WBC 19.2 k/uL (3.8-10.6)
[2018-05-21 06:56] LABS: Glucose,Whole Blood 163 mg/dL (75-99)
[2018-05-21] MEDS: methylPREDNISolone SOD SUCCI 125 MG/2 ML VIAL IV SCH ×4 (06:56→23:04)
[2018-05-21] MEDS: INSULIN ASPART 100 UNIT/ML 1 ML 10 ML VIAL SQ SCH ×4 (07:01→23:18)
[2018-05-21 07:03] LABS: INR 1.4 (<1.2); Partial Thromboplastin Time 62.7 sec (22.0-30.0); Prothrombin Time 13.4 sec (9.0-12.0)
[2018-05-21] MEDS: LEVOTHYROXINE 50 MCG TAB PO SCH (07:03)
--- NOTE | 2018-05-21 07:15 | XR ---
EXAMINATION TYPE: XR chest 1V DATE OF EXAM: 05/21/2018 HISTORY: Intubated . REFERENCE: Previous study dated 05/20/2018. FINDINGS: There is alveolar airspace disease present bilaterally, worse on the right than the left. T his is essentially unchanged from previous. There is a left subclavian catheter in place. Its tip is in the superior vena cava. The patient has been extubated. The patient is NG tube is been removed. Th ere are bilateral effusions, worse on the right than the left. Heart size is obscured. IMPRESSION: 1. CONTINUING ALVEOLAR AIRSPACE DISEASE PRESENT BILATERALLY. 2. BILATERAL EFFUSIONS, WORSE ON THE RIGHT THAN THE LEFT.
[2018-05-21] MEDS: IPRATROPIUM-ALBUTEROL 3 ML NEB INHALATION SCH ×4 (07:16→19:51)
[2018-05-21 07:38] LABS: Calcium 8.4 mg/dL (8.4-10.2); Magnesium 2.7 mg/dL (1.6-2.3); Potassium 3.3 mmol/L (3.5-5.1)
[2018-05-21] MEDS: AMIODARONE 200 MG TAB PO SCH ×2 (08:48→21:13)
[2018-05-21] MEDS: LACTULOSE 20 GM/30 ML CUP PO SCH ×3 (08:49→21:12)
[2018-05-21] MEDS: FUROSEMIDE 10 MG/ML 4 ML VIAL IV SCH ×2 (08:49→17:41)
[2018-05-21] MEDS: DILTIAZEM ORAL 30 MG TAB PO SCH ×3 (08:49→21:13)
[2018-05-21] MEDS: PANTOPRAZOLE 40 MG/10 ML VIAL IVP SCH (08:50)
[2018-05-21] MEDS: HEPARIN SOD,PORK IN 0.45% NACL 25,000 UNIT in 0.45% NACL 1 500ML.BAG IV SCH (08:56)
[2018-05-21] MEDS: ARTIFICIAL TEARS-HYPROMELLOSE DROPS 15 ML BTL BOTH EYES PRN (09:03)
[2018-05-21] MEDS: POTASSIUM CHLORIDE 20 MEQ in WATER FOR INJECTION 1 100ML.BAG IVPB SCH ×2 (09:05→14:32)
[2018-05-21] MEDS: ALPRAZolam 0.25 MG TAB PO PRN ×2 (10:03→21:13)
[2018-05-21] MEDS: SODIUM CHLORIDE 0.9% 1,000 ML IV SCH (12:01)
[2018-05-21] MEDS: VANCOMYCIN 1,750 MG in SODIUM CHLORIDE 0.9% 500 ML IVPB SCH ×2 (12:01→22:14)
[2018-05-21 12:13] LABS: Glucose,Whole Blood 155 mg/dL (75-99)
--- NOTE | 2018-05-21 13:09 | PN ---
PROGRESS NOTE Mrs. Tuttle is a 77-year-old female known history of hypertrophic cardiomyopathy who presented with symptoms of progressive dyspnea, respiratory failure, and evidence of pneumonia with some element of congestive heart failure. Her left ventricular systolic function was preserved. She was intubated, extubated yesterday. She continues to be on the BiPAP. She had episode of paroxysmal atrial fibrillation. She is back in sinus mechanism in persistent in sinus mechanism. She is awake, alert, on the BiPAP following command. She has no episodes of hypotension and she has good urine output. She continued be on amiodarone 400 mg twice a day, diltiazem 30 mg 3 times a day, Lasix 40 mg IV twice a day, Levothyroxine, levofloxacin, methylprednisone, Protonix and received Coumadin. PHYSICAL EXAMINATION: Blood pressure 140/70 with a heart in the 60s. LUNGS: Clear anteriorly. HEART: Regular rhythm S1, S2. No S3 with systolic murmur at the base, ejection type. No diastolic murmur. ABDOMEN: Soft, obese, nontender. EXTREMITIES: No significant edema. LAB DATA: BUN and creatinine 48 and 0.7. Magnesium 2.7. INR 1.4, hemoglobin 3.8. IMPRESSION: 1. Respiratory failure with pneumonia, improving. 2. Episode of atrial fibrillation, improving. 3. Paroxysmal atrial fibrillation. 4. Hypertrophic cardiomyopathy. 5. Hypothyroidism. 6. Hyperlipidemia intolerant to statin. RECOMMENDATION: From the cardiac standpoint, I will continue on the amiodarone on the present dose. We will continue on the Coumadin. Follow her INR. If she remains stable, then the dose of her amiodarone will be decreased gradually. We will follow her renal function to adjust the dose of the diuretics. Her chest x-ray today shows improvement. MMODL / IJN: [id number] /
--- NOTE | 2018-05-21 14:08 | P.PN ---
Subjective Progress Note Date: 05/21/18 Principal diagnosis: Acute hypoxic respiratory failure secondary to bilateral lower lobe pneumonia and congestive heart failure. A 77-year-old morbidly obese female patient with known history of obstructive sleep apnea maintained on BiPAP therapy on outpatient basis and addition to chronic bronchial asthma and significant limitation in exercise capacity secondary to her age body habitus and comorbidities, presented to the hospital because of an acute respiratory failure. I interviewed the daughter. Apparently the patient was at [employer] studies and she was getting progressively more short of breath. After arriving home she did [id number] breathing treatments without much relief. Ultimately she called her daughter who arrived to the scene and she saw that her mother was having more chest congestion, respirator distress, wheezing, and she was headed into respiratory failure. EMS was called to the scene. Upon arrival of EMS, the patient's pulse ox was in the low 70s pH was placed on on the percent nonrebreather facemask as she remained hypoxic and following that the patient was placed on BiPAP. The patient was moved to the emergency department. The patient was seen immediately after she arrived the ED. She was hypoxic, and she was cold and clammy and salmon color and cyanotic. As we were getting ready to intubate the patient, the patient lost pulse briefly and she became bradycardic. She went to the [facility]. She received a dose of epinephrine. She was started on CPR. Within 1 minute she recovered her pulse and the blood pressure. She was intubated and placed on a mechanical ventilator. She currently has a 7.[address] She is an assist-control mode of ventilation at the rate of 26, tidal volume of 400, FiO2 of 100% and a PEEP of 5. Immediately postintubation the blood pressure improved and she had a systolic above 200. She was started on propofol for sedation and her current systolic blood pressure in the 150s. A Poe catheter was inserted. The peak pressures in the 38-40 range. Static pressures around 32. The patient has significant bronchospasm and wheezing. A chest x-ray was done post intubation and post line placement and the chest x- ray showed no evidence of any pneumothorax. Bilateral air space disease was present in the perihilar regions in the lower lobes bilaterally right more than left. ET tube and NG tube were in good location. The patient also had a left subclavian triple-lumen catheter that was inserted without any complications. She was started on IV Zosyn knowing that the patient also briefly aspirated and vomited at the time of the intubation. Labs showed a white cell count of 22. The postintubation blood gas showed a pH of 7.21 with a pCO2 of 63 and pO2 of 88 and this blood gases on 100% FiO2. Initial lactic acid level was at 5.9 On today's evaluation of 05/12/2018 I'm seeing this patient for a follow-up. The patient remains intubated on a mechanical ventilator. Sedated with Diprivan at 30 mics per KG per minute. She is well sedated and she is synchronous with the mechanical ventilator. She is an assist-control mode of ventilation at the rate of 26 with a tidal volume of 400 and FiO2 of 60% with a PEEP of 5. The patient's chest x-ray from today is showing some mild improvement examination of the right midlung field. Otherwise the rest of the signs are all stable. ET tube is in a good location. The patient has consolidation of the right lung involving the right apex and the right lung base. There is also some perihilar pulmonary infiltrates bilaterally addition to some cardiomegaly. There is chronic elevation of the right hemidiaphragm. The blood gases from today showed a pH of 7.33 with a pCO2 of 47 and pO2 of 77 and it wasn't an FiO2 of 60%. The lactic acid level is down to 1.9 from 2.9 in addition. The patient was given briefly a sedation holiday and she was able to follow commands, simple commands and following that the patient was placed back on sedation. She did not require any pressors and the patient is maintaining home blood pressure. She was seen by cardiology today. Echocardiogram was done. The echo showed normal LV function with hypertensive heart disease and evidence of severe mitral stenosis with a mean gradient across the mitral valve of 20 mmHg as well as moderate to severe aortic stenosis with a mean gradient across the valve of 30 mmHg. The patient's cardiac rhythm is still sinus. She remains on broad-spectrum antibiotic coverage with a combination of Zosyn and Levaquin. The sputum cultures still negative for now. Blood cultures have been sent and the results are still negative for now. White cell count is elevated at 22.3. The patient was started on Lasix by cardiology 40 mg IV every 24 hours. She is also normal state rate of 40 mL an hour for now. On today's evaluation of 05/13/2018, the patient remains intubated on a mechanical ventilator. She is lightly sedated and the patient can easily aroused from propofol infusion. She remains on a mechanical ventilator the same vent setting. The blood gas from today, while on the 50% FiO2 showed a pH of 7.39 with a pCO2 of 40 and a pO2 of 81. White cell count is down to 17. The chest x-ray from today is showing persistent bilateral pulmonary infiltrates most on the right upper lobe and the right lower lobe. There is also small bilateral pleural effusion and cardiomegaly. ET tube remains in a good location. Cultures of been all negative thus far. The patient is afebrile and the patient is hemodynamically stable. Also, echocardiogram showed moderate to severe mitral stenosis and aortic valve stenosis and the patient was started on diuresis yesterday. I think we need to diurese this patient more aggressively over the next 24 hours. She'll feeds are running and the patient is tolerating her tube feeds without any major difficulties. Patient is producing adequate amount of urine output. Cardiac rhythm remains sinus. No other significant events over the past 24 hours. On 05/14/2089 seeing this patient for a follow-up. The patient remains intubated on a mechanical ventilator. She is on gentle sedation and she can easily aroused from her sedation and she can follow commands and answer questions appropriately. Her chest x-ray from today is showing some improvement in the aeration of the right lung. The patient has developed a consolidation and effusion the right lung base. The upper lobes are more clear. ET tube is in a good location. She remains on a mechanical ventilator. Assist-control mode of ventilation. She has a rate of 26, tidal volume of 400 , FiO2 is still at 60% with a PEEP of 5. Her blood gases from today showed a pH of 7.39 , pCO2 of 49 and pO2 of 81. I doubt the FiO2 down to 50%. I asked the nursing staff to stop the sedation completely and we checked her weaning parameters and the weaning parameters showed a NIF of -35 and vital Of 935 and the rapid shallow breathing index was less than 100. Based on that, the patient was given a spelled his breathing trial. She lasted for a total of 30 minutes. Following that she became tachycardic and cachectic. Blood gases obtained and the patient had a pH of 7.48 with a pCO2 of 48 and pO2 of 78. Nevertheless, based on ongoing shortness of breath, we decided not to extubate the patient knowing that she was not quite ready for extubation. Noted over the past 24 hours to monitor the patient has significant cardiac events. The patient went into an SVT. She was a rapid ventricular response. She had to be cardioverted. Subsequently she went into atrial fibrillation/flutter rhythm. Her rate is controlled for now. Nevertheless the patient is on Cardizem 30 mg by mouth 3 times a day. She was also placed on IV heparin by cardiology. As mentioned earlier she has valvular heart disease with severe mitral regurgitation stenosis. The diuretics have been cut down to 40 g IV Lasix every 12 hours. The net fluid balance is -2 L for yesterday. No fever. No chills. White cell count is down to 12.6. On 05/15/2018, patient is being seen in follow-up. He remains on a mechanical ventilator. Still on the same vent setting within assist-control mode at the rate of 26 with an FiO2 of 50% with a tidal volume of 400 and a PEEP of 5. The blood gas showed a pH of 7.45 with a pCO2 of 51 and pO2 of 91. No major improvement of the chest x-ray finding and the patient continues to have significant amount of bilateral airspace disease and bilateral pleural effusion more so on the right. The patient is in a controlled rhythm with atrial fibrillation. The patient is diuresing gently with IV Lasix. Unable to do aggressively diurese this patient because of evolving hypotension. The patient has severe mitral stenosis and approximately 2 fibrillation. The patient is also on broad-spectrum antibiotic coverage. She was given a sedation holiday and this point is breathing trial which she was able to tolerate for quite some time and following that she became short of breath and tachycardic and tachypneic and based on that the child was discontinued and the patient was not extubated. She is in a negative fluid balance. The net fluid balance for yesterday was -1.6 L. We are still diuresing this patient and she has a good urine output. She is afebrile. She is tolerating her tube feeds. She is very easily arousable and currently she is sedated with Diprivan. Overall no major changes and conditions compared to yesterday. I'm going to proceed with a CAT scan of the chest to characterized the pulmonary abnormalities. At the same time the patient was started on anticoagulation with warfarin. On 05/16/2018, patient was evaluated, and she remains on mechanical ventilation. Her ventilator settings are assist control rate of 26, tidal volume of 400, FiO2 of 50%, and PEEP of 5. ABG showed a pO2 of 78 pCO2 of 51 pH of 7.48. Patient is awake, responsive to all verbal commands, follows all instructions, hence I took her off propofol, and recommended a spontaneous breathing trial. Placed on pressure support of 10 with CPAP, however she only lasted about 20 minutes and she was noted to have increased respiratory rate, tachycardia, and she was developing a bit of respiratory distress. Hence the patient was switched back to assist control mode of mechanical ventilation. And I felt that she is not ready to be weaned. Ultrasound of the chest was done, there was evidence of less than 5 cm pocket of fluid on the right pleural space, hence I did not feel the patient would benefit much from thoracentesis, not to mention that is associated with thoracentesis considering the amount of fluid is small. All labs were reviewed, her renal profile seems to be relatively normal however her BUN is 53 creatinine is 0.70, more of a prerenal type of azothemia. CBC is relatively normal with minimal leukocytosis. Heparin is therapeutic for her atrial fibrillation. Hemodynamically, the patient is stable , and not requiring any norepinephrine at this point. Propofol is presently on hold. Nutrition is also address, and the patient is being fed with nasogastric tube/enteral feeding. Fluid balance noted over the last 24 hours to be about 90 mL positive. Hence the Lasix dose was increased to twice a day. On 05/17/2018, patient remains on mechanical ventilation, ventilator settings at present are tidal volume of 400, assist control rate of 16 FiO2 of 50% and PEEP of 5. ABG showed a pO2 of 134 pCO2 of 37 pH of 7.62. Patient is not breathing beyond the ventilator settings, hence I cut down her rate from 20-16. And I felt that the patient has significant metabolic alkalosis, but probably this patient's baseline pCO2 is normally in the 50s or 60s to begin with. So the alkalosis were noting is metabolic and respiratory in nature or alkalosis post correction of respiratory acidosis. At any rate we'll continue diuretics, her chest x-ray continues to show bilateral pleural effusion especially on the right side, but the ultrasound did not show enough fluid to safely perform a thoracentesis the pocket was less than 5 cm. Fluid balance is negative about 1258 in the last 24 hours. Urine output remains excellent. Renal functioning is about the same with a BUN of 53 creatinine of 0.70. Patient was placed on amiodarone by cardiology, and she is on heparin for atrial fibrillation. WBC count is 15.8 hemoglobin is 12.5. Patient is on 50 g of propofol, but she is awake, following all instructions, and I suggested that we discontinue propofol , wake of the patient, and given a trial of pressure support of 10 and CPAP. If tolerated we could potentially consider extubating the patient to BiPAP. If not tolerated a sugar go back on assist control mode of mechanical ventilation, higher dose of propofol to sedate her a bit more, and wait for another day to address weaning all over again. Patient was reevaluated today on 05/18/2018, remains on mechanical ventilation, ventilator settings are about the same, unchanged from yesterday. ABG showed a pO2 of 99 pCO2 of 49 pH of 7.51. Potassium is a bit low being corrected as per protocol. BUN remains 52 creatinine 0.66, patient remains on diuretics, repeat ultrasound of the chest continues to show very small tiny right-sided pleural effusion. Not large enough to consider thoracentesis. Chest x-ray is suggestive of central vascular congestion with right basilar consolidation, and small pleural effusion. Patient was taken off propofol, kept on assist control mode of mechanical ventilation, however she was noted to be extremely agitated and restless and tachypneic as well as tachycardic. Hence placed back on propofol, and clearly she is not amenable at this point. Discussed her condition with family at bedside, and we felt at this point patient may be ready for tracheostomy and PEG tube placement. She is going to be extremely difficult to wean. Radius attempts to wean the patient have failed and the patient has been now on mechanical ventilation for 8 days. Remains on the same medications, diuretics, amiodarone, DuoNeb updrafts, remains on antibiotics in the form of Levaquin and Zosyn. Cultures have been nondiagnostic, more sputum cultures were sent today. Nutrition-hassan the patient is receiving enteral feeding. She remains also on GI and DVT prophylaxis. Patient was reevaluated today on 05/19/2018, remains on mechanical ventilation, assist control mode of mechanical ventilation, FiO2 is now to 40%, assist control rate of 16, volume is 400, and PEEP is 5. ABG was noted, patient was given a trial of weaning, and even on assist control mode of mechanical ventilation, patient was breathing basically up in the high 20s and low 30s. As we went to pressure support and CPAP, patient looked extremely tachypnea, she was getting a bit tachycardic, and noted to show some signs of respiratory distress. Hence I updated the family on her condition, and suggested bronchoscopy and evaluation of the right lower lobe. This was done, and the fluid from the right lower lobe was sent for different diagnostic studies. Discussed with the family again plans for tracheostomy and PEG tube placement, apparently they discuss this with her when she was awakened off propofol, and they are all now in agreement that the patient would not have wanted this to begin with. So having said that, I believe were to try to proceed with daily weaning trials, and once we have a window of weaning, we will wean and extubate , and probably not to reintubate. Even if the patient fails and that will be further discussed again on again with the family and with the patient. They seem to be inclined to not consider trach and PEG, but will be willing to proceed with weaning and extubation and not to reintubate at that time we think it is best to extubate. White count is high today 32.3. Her ABG showed a pO2 of 96 pCO2 of 53 pH of 7.53. Basic metabolic profile is relatively normal, bicarb is 39 BUN is 47 creatinine is 0.6. Chest x-ray showed no major change, there is evidence of small pleural effusion, right lower lobe consolidation, and bibasilar airspace disease. Slight cardiac enlargement noted. Right diaphragm is elevated. Patient was reevaluated today on 05/20/2018, remains on mechanical ventilation, basically on the same ventilator settings, have not been changed. ABG showed a pO2 of 81 pCO2 of 56 pH of 7.51. Gram stain from the bronchial culture is showing many gram-positive cocci in clusters, hence I went ahead and added vancomycin to her present course of antibiotics empirically until the final culture is available. Family is all in the room today, and they basically have made a decision to extubate the patient to a noninvasive positive pressure ventilation, and if the patient does well, had to be great, if she doesn't do well, they will likely proceed with comfort care measures. This is all decided upon by all her family members and the patient herself. Hence the patient was taken off sedation, placed on pressure support mode of mechanical ventilation with a pressure support of 16, we have discontinued her propofol, discontinued all her sedation, and once the patient was awake, and responsive following instructions, she was switched to pressure support of 16 and CPAP. She seems to be doing well, in the meantime I have recommended diuretics since her chest x -ray was showing slight worsening she was given a dose of Lasix, and a dose of Diamox. Family is all in agreement to proceed with extubation, and again if not tolerated to proceed with comfort care measures. In the meantime the patient is DO NOT RESUSCITATE CODE STATUS. [place] [address], hemoglobin is 11, asymmetric metabolic profile was reviewed, bicarb is 43 BUN is 52 creatinine is 0.55. Patient was reevaluated today on 05/21/2018, continues to tolerate the extubation relatively well, she does while on BiPAP, and she doesn't do great on high flow nasal cannula or air vo2. Today we received the final report on the bronchial washing, and sure enough the patient doesn't have MRSA in the bronchial washing, and she has been already on vancomycin since yesterday. We will continue the vancomycin. Chest x-ray is showing some improvement today on the left side, but continues to have a significant amount of consolidation in the right lower lobe area. White cell count is coming down to 19.2 , hemoglobin is 11.0, PTT is 62.7, however the patient is having some bloody sputum, and small amount of hemoptysis, hence I would recommend stopping Coumadin and heparin today for sure. Objective - Vital Signs Vital signs: Vital Signs Temp 97.5 F L 05/21/18 08:00 Pulse 73 05/21/18 11:46 Resp 22 05/21/18 11:00 BP 140/78 05/21/18 11:00 Pulse Ox 95 05/21/18 13:58 Intake & Output 05/20/18 05/21/18 05/21/18 18:59 06:59 18:59 Intake Total 1292.57 620 1060 Output Total 2405 1150 875 Balance -1112.43 -530 185 Weight 115.3 kg 113.1 kg 113.1 kg Intake: IV 160 620 560 Piperacillin-Tazobactam 3 50 .375 gm In Dextrose/Water 1 50ml.bag @ 12.5 mls/hr IVPB Q8H NIRANJAN Rx#: [id number] Sodium Chloride 0.9% 1, 110 120 60 000 ml @ 10 mls/hr IV . Q24H NIRANJAN Rx#:[id number] Vancomycin 1,750 mg In 500 500 Sodium Chloride 0.9% 500 ml @ 167 mls/hr IVPB Q12H NIRANJAN Rx#:[id number] Intake, IV Titration 1084.57 500 Amount Heparin Sod,Pork in 0.45% 500 500 NaCl 25,000 unit In 0.45 % NaCl 1 500ml.bag @ 8.9 UNITS/KG/HR 19.93 mls/hr IV .Q24H NIRANJAN Rx#: [id number] Propofol 1,000 mg In 84.57 Empty Bag 1 bag @ Titrate IV .Q0M NIRANJAN Rx#: [id number] Vancomycin 1,750 mg In 500 Sodium Chloride 0.9% 500 ml @ 167 mls/hr IVPB Q12H NIRANJAN Rx#:[id number] Tube Feeding 48 Output: Urine 2405 1150 875 Other: Voiding Method Indwelling Catheter Indwelling Catheter ABP, PAP, CO, CI - Last Documented Arterial Blood Pressure 24/24 - Exam Physical Exam: Revealed a 77-year-old female, obese, on BiPAP Head: Atraumatic, normocephalic. HEENT:[Neck is supple.] [No neck masses.] [No thyromegaly.] [No JVD.] PERRLA, EOMI, moist mucous membranes, no icterus was noted. Left sided subclavian triple-lumen catheter is noted to be in place. Chest: [Symmetrical expansion, diminished breath sounds at the bases especially at the left base, with crackles. No rhonchi, no wheezes.] Cardiac Exam: [Irregular irregular rhythm Normal S1 and S2, no S3 gallop, 3/6 systolic murmur heard best over the pulmonary area. Abdomen: Obese, [Soft, nontender, no megaly, no rebound, no guarding, normal bowel sounds.] Extremities: [No clubbing, no edema, no cyanosis.] Neurological Exam: [No focal neurologic deficit.] Alert oriented 3, Psychiatric: Normal mood affect and mental status examination. Lymphatics: No lymphadenopathy. Skin: No rashes. Musculoskeletal: No limitations in range of motion. - Labs CBC & Chem 7: 05/21/18 06:40 05/21/18 06:40 Labs: Abnormal Lab Results - Last 24 Hours (Table) 05/20/18 05/20/18 05/21/18 Range/Units 18:09 23:44 06:40 WBC (3.8-10.6) k/uL Hgb (11.4-16.0) gm/dL Neutrophils # (1.3-7.7) k/uL Lymphocytes # (1.0-4.8) k/uL PT (9.0-12.0) sec INR (<1.2) APTT (22.0-30.0) sec Potassium 3.3 L (3.5-5.1) mmol/L Chloride 97 L (98-107) mmol/L Carbon Dioxide 38 H (22-30) mmol/L BUN 48 H (7-17) mg/dL Glucose 147 H (74-99) mg/dL POC Glucose (mg/dL) 140 H 128 H (75-99) mg/dL Magnesium 2.7 H (1.6-2.3) mg/dL 05/21/18 05/21/18 05/21/18 Range/Units 06:40 06:40 06:54 WBC 19.2 H (3.8-10.6) k/uL Hgb 11.0 L (11.4-16.0) gm/dL Neutrophils # 17.6 H (1.3-7.7) k/uL Lymphocytes # 0.7 L (1.0-4.8) k/uL PT 13.4 H (9.0-12.0) sec INR 1.4 H (<1.2) APTT 62.7 H (22.0-30.0) sec Potassium (3.5-5.1) mmol/L Chloride (98-107) mmol/L Carbon Dioxide (22-30) mmol/L BUN (7-17) mg/dL Glucose (74-99) mg/dL POC Glucose (mg/dL) 163 H (75-99) mg/dL Magnesium (1.6-2.3) mg/dL 05/21/18 Range/Units 12:12 WBC (3.8-10.6) k/uL Hgb (11.4-16.0) gm/dL Neutrophils # (1.3-7.7) k/uL Lymphocytes # (1.0-4.8) k/uL PT (9.0-12.0) sec INR (<1.2) APTT (22.0-30.0) sec Potassium (3.5-5.1) mmol/L Chloride (98-107) mmol/L Carbon Dioxide (22-30) mmol/L BUN (7-17) mg/dL Glucose (74-99) mg/dL POC Glucose (mg/dL) 155 H (75-99) mg/dL Magnesium (1.6-2.3) mg/dL Microbiology - Last 24 Hours (Table) 05/18/18 20:50 Gram Stain - Final Sputum Sputum Culture - Final Methicillin resist S. aureus 05/18/18 06:59 Blood Culture - Preliminary Blood No Growth after 72 hours 05/19/18 11:15 Gram Stain - Preliminary Bronchial Washings - Right Bronchial Washings Culture - Preliminary Presumptive Staph aureus Assessment and Plan Assessment: 1 acute hypoxic respiratory failure with bilateral lower lobe pneumonia and possibly component of diastolic CHF. The patient presented emergency department with acute respiratory arrest, intubated and placed on a mechanical ventilator On 05/12/2018 the patient remains intubated on a mechanical ventilator. There is improvement in oxygenation and FiO2 has been drop down to 60%. There is also further weaning the FiO2 down knowing that the patient's pulse ox and the pO2 is above 100. Meanwhile, the sputum cultures still pending. The patient is on a broad-spectrum antibiotic coverage with a combination of Zosyn and Levaquin. The patient is still sedated on a mechanical ventilator, intubated. On 05/13/2018, the patient remains on a mechanical ventilator. The patient is oxygenating and ventilating well. She is on the same antibiotic coverage. There is persistent but the pulmonary consolidation and infiltrates most on the right. The patient is on Zosyn and Levaquin the patient will be started on diuretics should there be a component of interstitial/pulmonary edema in association with his underlying pneumonia. Cultures of been all negative thus far. The patient remains hemodynamically stable. On 05/14/2018, the patient is still on a mechanical ventilator. There is some improvement in the chest x-ray findings and the patient is not ready for extubation yet. Hemodynamically stable for now. Overnight the patient had issues with SVT and currently she is in atrial fibrillation with a controlled rate. She is being diuresed gently. She is also being covered with broad- spectrum antibiotics regarding bilateral pneumonia. The sputum culture is negative for now. On 05/15/2018 I'm not seeing any major change in the patient's chest x-ray finding. She still has bilateral airspace disease probably combination of pneumonia fluids. The patient initially suspected to have pneumonia. Subsequently she was found to have severe mitral stenosis and regurgitation which probably is contributing to her respiratory failure. She has severe valvular heart disease and please refer to the echocardiogram results. She remains on broad-spectrum antibiotics. CAT scan of the chest was noted and reviewed. On 05/16/2018, and attempt of weaning was done, patient was placed on a pressure support of 10 and CPAP, noted to develop significant tachypnea, tachycardia, hence no more attempts were made, patient was placed back on assist control mode of mechanical ventilation. On 05/19/2018, patient underwent bronchoscopy and bronchoalveolar lavage of the right lower lobe. Again failed an attempt of weaning using pressure support and CPAP. Patient was noted to be quite tachypneic, and tachycardic at the time of bleeding with a pressure support of 12 and CPAP. On 05/20/2018, patient was extubated, extubated to BiPAP with a IPAP of 16 and EPAP of 8. FiO2 will be kept at 50%. Again the plan is to continue present treatment plan, and the patient fails, comfort care measures will be instituted as per the wishes of the patient and her family. In the meantime I have recommended more diuretics, and vancomycin was added. Mostly because of the Gram stain from the bronchial washing is showing gram-positive cocci in clusters. This turned out to be MRSA. On 05/21/2018, remains intermittently on BiPAP and high flow nasal cannula, patient is having episodes of hemoptysis and I would recommend stopping heparin and Coumadin for now. 2 right lower lobe MRSA pneumonia as noted from the bronchial washings from 05/19. Patient will remain on vancomycin. 3 acute cardiac pulmonary arrest with brief loss in progress where the patient received CPR and received a dose of epinephrine with return of spontaneous circulation. Currently on no pressors. No signs of any hypoxic encephalopathy and the patient was given a brief sedation holiday and she was able to follow simple commands without any major difficulties 4 lactic acidosis secondary to above, improving and recovered 5 leukocytosis secondary to above, improving, and recovered 6 morbid obesity with a BMI of 43.4 7 obstructive sleep apnea 8 severe persistent bronchial asthma 9 history of right hemidiaphragmatic plication for unilateral paralysis 10 moderate to severe severe aortic stenosis and mitral stenosis, with a preserved LV function as evident on the echocardiogram 11 history of TIA 12 nephrolithiasis 13 gouty arthritis 14 hypothyroidism 13 hypertension 16 hyperlipidemia 17 history of atrial fibrillation on Rythmol and her current rhythm is back in atrial fibrillation with a controlled rate. 18 acid reflux 19 gout 20 degenerative arthritis 21 episodes of SVT, cardioverted 22 right sided pleural effusion, seen on ultrasound to be less than 5 cm, not safe to perform thoracentesis. 23 intermittent episodes of hemoptysis secondary to pneumonia and the fact that the patient is on anticoagulation therapy including heparin and Coumadin. Hence I would hold both for now. Recommendation: Continue present supportive care measures, continue BiPAP and affect on high flow nasal cannula while eating, discussed her condition again with her daughter who is a nurse practitioner, and we plan to monitor the patient in the ICU, continue present meds, and considering her hemoptysis, we will discontinue heparin and Coumadin for now. Prognosis remains guarded, but it is rather reassuring that the patient is tolerating extubation well so far. But still requires to be frequently on BiPAP. Time with Patient: Less than 30
--- NOTE | 2018-05-21 14:20 | P.PN ---
Subjective 77-year-old female with multiple medical problems listed to sleep apnea severe COPD congestive heart failure admitted for acute respiratory failure most probably from COPD patient was extubated yesterday patient didn't do well postextubation patient is on and off BiPAP. Patient is presently on BiPAP. Patient is presently rate controlled does have atrial fibrillation is on anticoagulation patient had a cardiopulmonary arrest before this hospitalization. I had extensive discussion with the patient as well as family members regarding comfort care. Her overall prognosis is extremely poor patient bronchial cultures are positive for MRSA and patient is on vancomycin. Objective - Vital Signs Vital signs: Vital Signs Temp 97.5 F L 05/21/18 08:00 Pulse 73 05/21/18 11:46 Resp 22 05/21/18 11:00 BP 140/78 05/21/18 11:00 Pulse Ox 95 05/21/18 13:58 Intake & Output 05/20/18 05/21/18 05/21/18 18:59 06:59 18:59 Intake Total 1292.57 620 1060 Output Total 2405 1150 875 Balance -1112.43 -530 185 Weight 115.3 kg 113.1 kg 113.1 kg Intake: IV 160 620 560 Piperacillin-Tazobactam 3 50 .375 gm In Dextrose/Water 1 50ml.bag @ 12.5 mls/hr IVPB Q8H NIRANJAN Rx#: [id number] Sodium Chloride 0.9% 1, 110 120 60 000 ml @ 10 mls/hr IV . Q24H NIRANJAN Rx#:[id number] Vancomycin 1,750 mg In 500 500 Sodium Chloride 0.9% 500 ml @ 167 mls/hr IVPB Q12H NIRANJAN Rx#:[id number] Intake, IV Titration 1084.57 500 Amount Heparin Sod,Pork in 0.45% 500 500 NaCl 25,000 unit In 0.45 % NaCl 1 500ml.bag @ 8.9 UNITS/KG/HR 19.93 mls/hr IV .Q24H NIRANJAN Rx#: [id number] Propofol 1,000 mg In 84.57 Empty Bag 1 bag @ Titrate IV .Q0M NIRANJAN Rx#: [id number] Vancomycin 1,750 mg In 500 Sodium Chloride 0.9% 500 ml @ 167 mls/hr IVPB Q12H NIRANJAN Rx#:[id number] Tube Feeding 48 Output: Urine 2405 1150 875 Other: Voiding Method Indwelling Catheter Indwelling Catheter ABP, PAP, CO, CI - Last Documented Arterial Blood Pressure - Exam PHYSICAL EXAMINATION: GENERAL: The patient is alert and oriented x3, not in any acute distress. Obese. HEENT: Pupils are round and equally reacting to light. EOMI. No scleral icterus. No conjunctival pallor. Normocephalic, atraumatic. No pharyngeal erythema. No thyromegaly. CARDIOVASCULAR: S1 and S2 present. No murmurs, rubs, or gallops. PULMONARY: Gross breath sounds is in respiratory distress on BiPAP ABDOMEN: Soft, nontender, nondistended, normoactive bowel sounds. No palpable organomegaly. MUSCULOSKELETAL: No joint swelling or deformity. EXTREMITIES: No cyanosis, clubbing, or pedal edema. NEUROLOGICAL: Gross neurological examination did not reveal any focal deficits. SKIN: No rashes. - Labs CBC & Chem 7: 05/21/18 06:40 05/21/18 06:40 Labs: Abnormal Lab Results - Last 24 Hours (Table) 05/20/18 05/20/18 05/21/18 Range/Units 18:09 23:44 06:40 WBC (3.8-10.6) k/uL Hgb (11.4-16.0) gm/dL Neutrophils # (1.3-7.7) k/uL Lymphocytes # (1.0-4.8) k/uL PT (9.0-12.0) sec INR (<1.2) APTT (22.0-30.0) sec Potassium 3.3 L (3.5-5.1) mmol/L Chloride 97 L (98-107) mmol/L Carbon Dioxide 38 H (22-30) mmol/L BUN 48 H (7-17) mg/dL Glucose 147 H (74-99) mg/dL POC Glucose (mg/dL) 140 H 128 H (75-99) mg/dL Magnesium 2.7 H (1.6-2.3) mg/dL 05/21/18 05/21/18 05/21/18 Range/Units 06:40 06:40 06:54 WBC 19.2 H (3.8-10.6) k/uL Hgb 11.0 L (11.4-16.0) gm/dL Neutrophils # 17.6 H (1.3-7.7) k/uL Lymphocytes # 0.7 L (1.0-4.8) k/uL PT 13.4 H (9.0-12.0) sec INR 1.4 H (<1.2) APTT 62.7 H (22.0-30.0) sec Potassium (3.5-5.1) mmol/L Chloride (98-107) mmol/L Carbon Dioxide (22-30) mmol/L BUN (7-17) mg/dL Glucose (74-99) mg/dL POC Glucose (mg/dL) 163 H (75-99) mg/dL Magnesium (1.6-2.3) mg/dL 05/21/18 Range/Units 12:12 WBC (3.8-10.6) k/uL Hgb (11.4-16.0) gm/dL Neutrophils # (1.3-7.7) k/uL Lymphocytes # (1.0-4.8) k/uL PT (9.0-12.0) sec INR (<1.2) APTT (22.0-30.0) sec Potassium (3.5-5.1) mmol/L Chloride (98-107) mmol/L Carbon Dioxide (22-30) mmol/L BUN (7-17) mg/dL Glucose (74-99) mg/dL POC Glucose (mg/dL) 155 H (75-99) mg/dL Magnesium (1.6-2.3) mg/dL Microbiology - Last 24 Hours (Table) 05/18/18 20:50 Gram Stain - Final Sputum Sputum Culture - Final Methicillin resist S. aureus 05/18/18 06:59 Blood Culture - Preliminary Blood No Growth after 72 hours 05/19/18 11:15 Gram Stain - Preliminary Bronchial Washings - Right Bronchial Washings Culture - Preliminary Presumptive Staph aureus Assessment and Plan Plan: Acute hypoxic respiratory failure. Multifactorial secondary to bilateral lower lobe pneumonia ,CHF. extubated to BiPAP (Bilateral lower lobe pneumonia. Right greater than left), patient is on IV vancomycin patient the bronchial cultures are positive for staph aureus patient appears to have staph early pneumonia Acute cardio pulmonary arrest with brief loss of pulse status post CPR and a dose of epinephrine with return of spontaneous circulation. Lactic acidosis 5.9 on admission improving, recovered Sepsis secondary to pneumonia Obstructive sleep apnea on BiPAP at home Morbid obesity with BMI 44.9 with possible underlying obesity hypoventilation Acute on chronic CHF with systolic dysfunction as well as valvular heart disease History of right hemidiaphragmatic plication for unilateral paralysis History of TIA Nephrolithiasis Osteoarthritis Hypothyroidism with low free T4 level and elevated TSH. Uncontrolled History of atrial fibrillation. Paroxysmal. Currently in sinus rhythm on Rythmol GERD Gout status post bronchoscopy with lavage of right lower lobe No Code, no CPR as per family's wishes. Her overall prognosis and poor considering her obesity hypoventilation syndrome morbid obesity sleep apnea and possibility of COPD. Patient does use oxygen at home does use BiPAP at home at nighttime. Patient is on BiPAP at this point of time without BiPAP patient desaturates very quickly.
[2018-05-21] MEDS: LACTATED RINGERS 1,000 ML IV SCH (17:40)
[2018-05-21] MEDS ORDERED: WARFARIN 5 MG TAB PO ONE (18:00)
[2018-05-21 18:05] LABS: Glucose,Whole Blood 128 mg/dL (75-99)
[2018-05-21] MEDS: LEVOFLOXACIN 750MG-D5W PMX 750 MG in DEXTROSE/WATER 1 150ML.BAG IVPB SCH (19:13)
[2018-05-21 23:18] LABS: Glucose,Whole Blood 136 mg/dL (75-99)
[2018-05-21] MEDS: POTASSIUM BICARBONATE/CIT AC 20 MEQ TABLET.EFF NG-TUBE SCH (23:19)
[2018-05-22] MEDS: POTASSIUM BICARBONATE/CIT AC 20 MEQ TABLET.EFF NG-TUBE SCH (00:27)
[2018-05-22] MEDS: PIPERACILLIN-TAZOBACTAM 3.375 GM in DEXTROSE/WATER 1 50ML.BAG IVPB SCH ×3 (04:33→20:36)
[2018-05-22 04:55] LABS: Eosinophils % (A) 0 %; HGB 11.6 gm/dL (11.4-16.0)
[2018-05-22 05:05] LABS: Blood Urea Nitrogen 55 mg/dL (7-17); Calcium 8.6 mg/dL (8.4-10.2); Chloride 98 mmol/L (98-107); Glucose 150 mg/dL (74-99); Magnesium 2.6 mg/dL (1.6-2.3); Potassium 4.3 mmol/L (3.5-5.1); Sodium 139 mmol/L (137-145)
[2018-05-22 05:10] LABS: Anion Gap 2 mmol/L
[2018-05-22 05:12] LABS: INR 1.5 (<1.2); Partial Thromboplastin Time 22.5 sec (22.0-30.0); Prothrombin Time 14.2 sec (9.0-12.0)
[2018-05-22 05:13] LABS: Carbon Dioxide 39 mmol/L (22-30)
[2018-05-22 05:15] LABS: Basophils # (A) 0.1 k/uL (0-0.2); Basophils % (A) 0 %; HCT 36.2 % (34.0-46.0); Lymphocytes # (A) 0.8 k/uL (1.0-4.8); Lymphocytes % (A) 3 %; MCH 28.7 pg (25.0-35.0); MCV 89.6 fL (80.0-100.0); Mean Platelet Volume 7.5; Monocytes # (A) 1.3 k/uL (0-1.0); Monocytes % (A) 5 %; Neutrophils % (A) 91 %; Platelet Count 211 k/uL (150-450); RBC 4.04 m/uL (3.80-5.40); RDW 14.7 % (11.5-15.5)
[2018-05-22 05:22] LABS: WBC 28.5 k/uL (3.8-10.6)
[2018-05-22] MEDS: methylPREDNISolone SOD SUCCI 125 MG/2 ML VIAL IV SCH ×4 (06:02→23:42)
[2018-05-22 06:10] LABS: Glucose,Whole Blood 150 mg/dL (75-99)
[2018-05-22] MEDS: INSULIN ASPART 100 UNIT/ML 1 ML 10 ML VIAL SQ SCH ×4 (06:12→23:50)
[2018-05-22] MEDS: LEVOTHYROXINE 50 MCG TAB PO SCH (06:15)
--- NOTE | 2018-05-22 07:15 | XR ---
EXAMINATION TYPE: XR chest 1V portable DATE OF EXAM: 05/22/2018 HISTORY: Pneumonia. REFERENCE: Previous study dated 05/21/2018. FINDINGS: The left subclavian catheter remains in place. Its tip is in the superior vena cava. There continues to be bilateral alveolar airspace disease, most confluent at the right lung base. The re are bilateral effusions. The heart is obscured IMPRESSION: 1. CONTINUING BILATERAL ALVEOLAR AIRSPACE DISEASE. 2. SMALL, BILATERAL EFFUSIONS, GREATER ON THE RIGHT THAN THE LEFT.
[2018-05-22] MEDS: IPRATROPIUM-ALBUTEROL 3 ML NEB INHALATION SCH ×4 (07:26→19:29)
[2018-05-22] MEDS ORDERED: VANCOMYCIN TROUGH DUE 1 EACH MISC MISCELLANE ONE (09:00)
[2018-05-22] MEDS: FUROSEMIDE 10 MG/ML 4 ML VIAL IV SCH ×2 (09:10→17:58)
[2018-05-22] MEDS: AMIODARONE 200 MG TAB PO SCH ×2 (09:10→21:01)
[2018-05-22] MEDS: DILTIAZEM ORAL 30 MG TAB PO SCH ×4 (09:10→21:02)
[2018-05-22] MEDS: LACTULOSE 20 GM/30 ML CUP PO SCH ×3 (09:11→21:03)
[2018-05-22] MEDS: PANTOPRAZOLE 40 MG/10 ML VIAL IVP SCH (09:11)
[2018-05-22] MEDS: VANCOMYCIN 1,750 MG in SODIUM CHLORIDE 0.9% 500 ML IVPB SCH ×2 (09:11→21:29)
[2018-05-22] MEDS: LORazepam 2 MG/ML INJ IV PRN ×2 (09:46→23:52)
--- NOTE | 2018-05-22 10:19 | PN ---
PROGRESS NOTE Mrs. Tuttle is a 77-year-old female who presented with respiratory failure requiring mechanical intubation with evidence of pneumonia. She is extubated on the BiPAP and high-flow oxygen supply. She is awake, alert, mildly dyspneic. She denies any chest pain. No dizziness. Hemodynamically, she is stable. She remains in sinus mechanism. Her urinary output has been stable. She continues to be on Diamox 250 IV q.12 hours, amiodarone 400 mg twice a day, diltiazem 30 mg 3 times a day, Lasix 40 mg IV q.12 hours, levofloxacin, and vancomycin, methylprednisone, Protonix, Coumadin is on hold because of hemoptysis. PHYSICAL EXAMINATION: Blood pressure 140/70 with a heart rate in the 70. Lungs with a few crackles scattered, but no wheezes. HEART: Regular rate and rhythm S1, S2. No S3 with systolic murmur 3/6 heard at the base. No diastolic murmur. ABDOMEN: Soft, obese, nontender. EXTREMITIES: No significant edema. LAB DATA: Revealed BUN and creatinine 55 and 0.7, potassium 4.3. Her white blood cells 28.5, which has worsened compared with yesterday but better than it was 2 days ago. Her chest x-ray revealed increased signs of congestion on the right side with effusion. IMPRESSION: 1. Pneumonia with MRSA. 2. Respiratory failure, improving. 3. History of sub valvular aortic gradient. 4. History of chronic dyspnea on exertion. 5. Paroxysmal atrial fibrillation remains in sinus mechanism. RECOMMENDATION: I will cut down the dose of her amiodarone to 200 mg twice a day. Continue the rest of her medical regimen. We will continue to hold her anticoagulation at this time. She will receive extra dose of diuretics. Depending on her progress, further recommendations will be made. MMODL / IJN: [id number] / MTDD
[2018-05-22] MEDS: HYDROmorphone 1 MG/ML 1 ML SYRINGE IVP PRN ×2 (10:33→23:56)
[2018-05-22 12:03] LABS: Glucose,Whole Blood 181 mg/dL (75-99)
[2018-05-22] MEDS: SODIUM CHLORIDE 0.9% 1,000 ML IV SCH (12:21)
--- NOTE | 2018-05-22 13:19 | P.PN ---
Subjective Progress Note Date: 05/22/18 Principal diagnosis: Acute hypoxic respiratory failure secondary to bilateral lower lobe pneumonia and congestive heart failure. A 77-year-old morbidly obese female patient with known history of obstructive sleep apnea maintained on BiPAP therapy on outpatient basis and addition to chronic bronchial asthma and significant limitation in exercise capacity secondary to her age body habitus and comorbidities, presented to the hospital because of an acute respiratory failure. I interviewed the daughter. Apparently the patient was at [employer] studies and she was getting progressively more short of breath. After arriving home she did [id number] breathing treatments without much relief. Ultimately she called her daughter who arrived to the scene and she saw that her mother was having more chest congestion, respirator distress, wheezing, and she was headed into respiratory failure. EMS was called to the scene. Upon arrival of EMS, the patient's pulse ox was in the low 70s pH was placed on on the percent nonrebreather facemask as she remained hypoxic and following that the patient was placed on BiPAP. The patient was moved to the emergency department. The patient was seen immediately after she arrived the ED. She was hypoxic, and she was cold and clammy and salmon color and cyanotic. As we were getting ready to intubate the patient, the patient lost pulse briefly and she became bradycardic. She went to the [facility]. She received a dose of epinephrine. She was started on CPR. Within 1 minute she recovered her pulse and the blood pressure. She was intubated and placed on a mechanical ventilator. She currently has a 7.[address] She is an assist-control mode of ventilation at the rate of 26, tidal volume of 400, FiO2 of 100% and a PEEP of 5. Immediately postintubation the blood pressure improved and she had a systolic above 200. She was started on propofol for sedation and her current systolic blood pressure in the 150s. A Poe catheter was inserted. The peak pressures in the 38-40 range. Static pressures around 32. The patient has significant bronchospasm and wheezing. A chest x-ray was done post intubation and post line placement and the chest x- ray showed no evidence of any pneumothorax. Bilateral air space disease was present in the perihilar regions in the lower lobes bilaterally right more than left. ET tube and NG tube were in good location. The patient also had a left subclavian triple-lumen catheter that was inserted without any complications. She was started on IV Zosyn knowing that the patient also briefly aspirated and vomited at the time of the intubation. Labs showed a white cell count of 22. The postintubation blood gas showed a pH of 7.21 with a pCO2 of 63 and pO2 of 88 and this blood gases on 100% FiO2. Initial lactic acid level was at 5.9 On today's evaluation of 05/12/2018 I'm seeing this patient for a follow-up. The patient remains intubated on a mechanical ventilator. Sedated with Diprivan at 30 mics per KG per minute. She is well sedated and she is synchronous with the mechanical ventilator. She is an assist-control mode of ventilation at the rate of 26 with a tidal volume of 400 and FiO2 of 60% with a PEEP of 5. The patient's chest x-ray from today is showing some mild improvement examination of the right midlung field. Otherwise the rest of the signs are all stable. ET tube is in a good location. The patient has consolidation of the right lung involving the right apex and the right lung base. There is also some perihilar pulmonary infiltrates bilaterally addition to some cardiomegaly. There is chronic elevation of the right hemidiaphragm. The blood gases from today showed a pH of 7.33 with a pCO2 of 47 and pO2 of 77 and it wasn't an FiO2 of 60%. The lactic acid level is down to 1.9 from 2.9 in addition. The patient was given briefly a sedation holiday and she was able to follow commands, simple commands and following that the patient was placed back on sedation. She did not require any pressors and the patient is maintaining home blood pressure. She was seen by cardiology today. Echocardiogram was done. The echo showed normal LV function with hypertensive heart disease and evidence of severe mitral stenosis with a mean gradient across the mitral valve of 20 mmHg as well as moderate to severe aortic stenosis with a mean gradient across the valve of 30 mmHg. The patient's cardiac rhythm is still sinus. She remains on broad-spectrum antibiotic coverage with a combination of Zosyn and Levaquin. The sputum cultures still negative for now. Blood cultures have been sent and the results are still negative for now. White cell count is elevated at 22.3. The patient was started on Lasix by cardiology 40 mg IV every 24 hours. She is also normal state rate of 40 mL an hour for now. On today's evaluation of 05/13/2018, the patient remains intubated on a mechanical ventilator. She is lightly sedated and the patient can easily aroused from propofol infusion. She remains on a mechanical ventilator the same vent setting. The blood gas from today, while on the 50% FiO2 showed a pH of 7.39 with a pCO2 of 40 and a pO2 of 81. White cell count is down to 17. The chest x-ray from today is showing persistent bilateral pulmonary infiltrates most on the right upper lobe and the right lower lobe. There is also small bilateral pleural effusion and cardiomegaly. ET tube remains in a good location. Cultures of been all negative thus far. The patient is afebrile and the patient is hemodynamically stable. Also, echocardiogram showed moderate to severe mitral stenosis and aortic valve stenosis and the patient was started on diuresis yesterday. I think we need to diurese this patient more aggressively over the next 24 hours. She'll feeds are running and the patient is tolerating her tube feeds without any major difficulties. Patient is producing adequate amount of urine output. Cardiac rhythm remains sinus. No other significant events over the past 24 hours. On 05/14/2089 seeing this patient for a follow-up. The patient remains intubated on a mechanical ventilator. She is on gentle sedation and she can easily aroused from her sedation and she can follow commands and answer questions appropriately. Her chest x-ray from today is showing some improvement in the aeration of the right lung. The patient has developed a consolidation and effusion the right lung base. The upper lobes are more clear. ET tube is in a good location. She remains on a mechanical ventilator. Assist-control mode of ventilation. She has a rate of 26, tidal volume of 400 , FiO2 is still at 60% with a PEEP of 5. Her blood gases from today showed a pH of 7.39 , pCO2 of 49 and pO2 of 81. I doubt the FiO2 down to 50%. I asked the nursing staff to stop the sedation completely and we checked her weaning parameters and the weaning parameters showed a NIF of -35 and vital Of 935 and the rapid shallow breathing index was less than 100. Based on that, the patient was given a spelled his breathing trial. She lasted for a total of 30 minutes. Following that she became tachycardic and cachectic. Blood gases obtained and the patient had a pH of 7.48 with a pCO2 of 48 and pO2 of 78. Nevertheless, based on ongoing shortness of breath, we decided not to extubate the patient knowing that she was not quite ready for extubation. Noted over the past 24 hours to monitor the patient has significant cardiac events. The patient went into an SVT. She was a rapid ventricular response. She had to be cardioverted. Subsequently she went into atrial fibrillation/flutter rhythm. Her rate is controlled for now. Nevertheless the patient is on Cardizem 30 mg by mouth 3 times a day. She was also placed on IV heparin by cardiology. As mentioned earlier she has valvular heart disease with severe mitral regurgitation stenosis. The diuretics have been cut down to 40 g IV Lasix every 12 hours. The net fluid balance is -2 L for yesterday. No fever. No chills. White cell count is down to 12.6. On 05/15/2018, patient is being seen in follow-up. He remains on a mechanical ventilator. Still on the same vent setting within assist-control mode at the rate of 26 with an FiO2 of 50% with a tidal volume of 400 and a PEEP of 5. The blood gas showed a pH of 7.45 with a pCO2 of 51 and pO2 of 91. No major improvement of the chest x-ray finding and the patient continues to have significant amount of bilateral airspace disease and bilateral pleural effusion more so on the right. The patient is in a controlled rhythm with atrial fibrillation. The patient is diuresing gently with IV Lasix. Unable to do aggressively diurese this patient because of evolving hypotension. The patient has severe mitral stenosis and approximately 2 fibrillation. The patient is also on broad-spectrum antibiotic coverage. She was given a sedation holiday and this point is breathing trial which she was able to tolerate for quite some time and following that she became short of breath and tachycardic and tachypneic and based on that the child was discontinued and the patient was not extubated. She is in a negative fluid balance. The net fluid balance for yesterday was -1.6 L. We are still diuresing this patient and she has a good urine output. She is afebrile. She is tolerating her tube feeds. She is very easily arousable and currently she is sedated with Diprivan. Overall no major changes and conditions compared to yesterday. I'm going to proceed with a CAT scan of the chest to characterized the pulmonary abnormalities. At the same time the patient was started on anticoagulation with warfarin. On 05/16/2018, patient was evaluated, and she remains on mechanical ventilation. Her ventilator settings are assist control rate of 26, tidal volume of 400, FiO2 of 50%, and PEEP of 5. ABG showed a pO2 of 78 pCO2 of 51 pH of 7.48. Patient is awake, responsive to all verbal commands, follows all instructions, hence I took her off propofol, and recommended a spontaneous breathing trial. Placed on pressure support of 10 with CPAP, however she only lasted about 20 minutes and she was noted to have increased respiratory rate, tachycardia, and she was developing a bit of respiratory distress. Hence the patient was switched back to assist control mode of mechanical ventilation. And I felt that she is not ready to be weaned. Ultrasound of the chest was done, there was evidence of less than 5 cm pocket of fluid on the right pleural space, hence I did not feel the patient would benefit much from thoracentesis, not to mention that is associated with thoracentesis considering the amount of fluid is small. All labs were reviewed, her renal profile seems to be relatively normal however her BUN is 53 creatinine is 0.70, more of a prerenal type of azothemia. CBC is relatively normal with minimal leukocytosis. Heparin is therapeutic for her atrial fibrillation. Hemodynamically, the patient is stable , and not requiring any norepinephrine at this point. Propofol is presently on hold. Nutrition is also address, and the patient is being fed with nasogastric tube/enteral feeding. Fluid balance noted over the last 24 hours to be about 90 mL positive. Hence the Lasix dose was increased to twice a day. On 05/17/2018, patient remains on mechanical ventilation, ventilator settings at present are tidal volume of 400, assist control rate of 16 FiO2 of 50% and PEEP of 5. ABG showed a pO2 of 134 pCO2 of 37 pH of 7.62. Patient is not breathing beyond the ventilator settings, hence I cut down her rate from 20-16. And I felt that the patient has significant metabolic alkalosis, but probably this patient's baseline pCO2 is normally in the 50s or 60s to begin with. So the alkalosis were noting is metabolic and respiratory in nature or alkalosis post correction of respiratory acidosis. At any rate we'll continue diuretics, her chest x-ray continues to show bilateral pleural effusion especially on the right side, but the ultrasound did not show enough fluid to safely perform a thoracentesis the pocket was less than 5 cm. Fluid balance is negative about 1258 in the last 24 hours. Urine output remains excellent. Renal functioning is about the same with a BUN of 53 creatinine of 0.70. Patient was placed on amiodarone by cardiology, and she is on heparin for atrial fibrillation. WBC count is 15.8 hemoglobin is 12.5. Patient is on 50 g of propofol, but she is awake, following all instructions, and I suggested that we discontinue propofol , wake of the patient, and given a trial of pressure support of 10 and CPAP. If tolerated we could potentially consider extubating the patient to BiPAP. If not tolerated a sugar go back on assist control mode of mechanical ventilation, higher dose of propofol to sedate her a bit more, and wait for another day to address weaning all over again. Patient was reevaluated today on 05/18/2018, remains on mechanical ventilation, ventilator settings are about the same, unchanged from yesterday. ABG showed a pO2 of 99 pCO2 of 49 pH of 7.51. Potassium is a bit low being corrected as per protocol. BUN remains 52 creatinine 0.66, patient remains on diuretics, repeat ultrasound of the chest continues to show very small tiny right-sided pleural effusion. Not large enough to consider thoracentesis. Chest x-ray is suggestive of central vascular congestion with right basilar consolidation, and small pleural effusion. Patient was taken off propofol, kept on assist control mode of mechanical ventilation, however she was noted to be extremely agitated and restless and tachypneic as well as tachycardic. Hence placed back on propofol, and clearly she is not amenable at this point. Discussed her condition with family at bedside, and we felt at this point patient may be ready for tracheostomy and PEG tube placement. She is going to be extremely difficult to wean. Radius attempts to wean the patient have failed and the patient has been now on mechanical ventilation for 8 days. Remains on the same medications, diuretics, amiodarone, DuoNeb updrafts, remains on antibiotics in the form of Levaquin and Zosyn. Cultures have been nondiagnostic, more sputum cultures were sent today. Nutrition-hassan the patient is receiving enteral feeding. She remains also on GI and DVT prophylaxis. Patient was reevaluated today on 05/19/2018, remains on mechanical ventilation, assist control mode of mechanical ventilation, FiO2 is now to 40%, assist control rate of 16, volume is 400, and PEEP is 5. ABG was noted, patient was given a trial of weaning, and even on assist control mode of mechanical ventilation, patient was breathing basically up in the high 20s and low 30s. As we went to pressure support and CPAP, patient looked extremely tachypnea, she was getting a bit tachycardic, and noted to show some signs of respiratory distress. Hence I updated the family on her condition, and suggested bronchoscopy and evaluation of the right lower lobe. This was done, and the fluid from the right lower lobe was sent for different diagnostic studies. Discussed with the family again plans for tracheostomy and PEG tube placement, apparently they discuss this with her when she was awakened off propofol, and they are all now in agreement that the patient would not have wanted this to begin with. So having said that, I believe were to try to proceed with daily weaning trials, and once we have a window of weaning, we will wean and extubate , and probably not to reintubate. Even if the patient fails and that will be further discussed again on again with the family and with the patient. They seem to be inclined to not consider trach and PEG, but will be willing to proceed with weaning and extubation and not to reintubate at that time we think it is best to extubate. White count is high today 32.3. Her ABG showed a pO2 of 96 pCO2 of 53 pH of 7.53. Basic metabolic profile is relatively normal, bicarb is 39 BUN is 47 creatinine is 0.6. Chest x-ray showed no major change, there is evidence of small pleural effusion, right lower lobe consolidation, and bibasilar airspace disease. Slight cardiac enlargement noted. Right diaphragm is elevated. Patient was reevaluated today on 05/20/2018, remains on mechanical ventilation, basically on the same ventilator settings, have not been changed. ABG showed a pO2 of 81 pCO2 of 56 pH of 7.51. Gram stain from the bronchial culture is showing many gram-positive cocci in clusters, hence I went ahead and added vancomycin to her present course of antibiotics empirically until the final culture is available. Family is all in the room today, and they basically have made a decision to extubate the patient to a noninvasive positive pressure ventilation, and if the patient does well, had to be great, if she doesn't do well, they will likely proceed with comfort care measures. This is all decided upon by all her family members and the patient herself. Hence the patient was taken off sedation, placed on pressure support mode of mechanical ventilation with a pressure support of 16, we have discontinued her propofol, discontinued all her sedation, and once the patient was awake, and responsive following instructions, she was switched to pressure support of 16 and CPAP. She seems to be doing well, in the meantime I have recommended diuretics since her chest x -ray was showing slight worsening she was given a dose of Lasix, and a dose of Diamox. Family is all in agreement to proceed with extubation, and again if not tolerated to proceed with comfort care measures. In the meantime the patient is DO NOT RESUSCITATE CODE STATUS. [place] [address], hemoglobin is 11, asymmetric metabolic profile was reviewed, bicarb is 43 BUN is 52 creatinine is 0.55. Patient was reevaluated today on 05/21/2018, continues to tolerate the extubation relatively well, she does while on BiPAP, and she doesn't do great on high flow nasal cannula or air vo2. Today we received the final report on the bronchial washing, and sure enough the patient doesn't have MRSA in the bronchial washing, and she has been already on vancomycin since yesterday. We will continue the vancomycin. Chest x-ray is showing some improvement today on the left side, but continues to have a significant amount of consolidation in the right lower lobe area. White cell count is coming down to 19.2 , hemoglobin is 11.0, PTT is 62.7, however the patient is having some bloody sputum, and small amount of hemoptysis, hence I would recommend stopping Coumadin and heparin today for sure. Reevaluated today on 05/22/2018, patient remains off mechanical ventilation, presently on BiPAP, tolerating BiPAP quite well. Patient did not do well with high flow nasal cannula but she is able to use it when she eats. Chest x-ray is showing some worsening hence I recommended more diuretics in the form of Lasix and Diamox. Her WBC count today is up to 28.5, hemoglobin is 11.6. Basic metabolic profile is normal bicarb is 39 however, BUN is 55 creatinine 0.70. Chest x-ray showed continuing bilateral alveolar airspace disease and small bilateral effusions mostly on the right side. But previous ultrasound did not reveal enough fluid to safely perform thoracentesis. Bronchial washing has been positive for MRSA, cytology from the bronchial washing has been negative for malignancy. Patient is still now on vancomycin, Zosyn, and Levaquin. Continues to have intermittent episodes of hemoptysis, Coumadin and heparin remain on hold. Objective - Vital Signs Vital signs: Vital Signs Temp 97.6 F 05/22/18 12:00 Pulse 76 05/22/18 12:00 Resp 30 H 05/22/18 12:00 BP 125/61 05/22/18 12:00 Pulse Ox 94 L 05/22/18 12:00 Intake & Output 05/21/18 05/22/18 05/22/18 18:59 06:59 18:59 Intake Total 1780 791 550 Output Total 1875 1325 260 Balance -95 -534 290 Weight 113.1 kg 114.1 kg 114.1 kg Intake: IV 1180 671 550 Piperacillin-Tazobactam 3 50 50 .375 gm In Dextrose/Water 1 50ml.bag @ 12.5 mls/hr IVPB Q8H NIRANJAN Rx#: [id number] Sodium Chloride 0.9% 1, 130 120 50 000 ml @ 10 mls/hr IV . Q24H NIRANJAN Rx#:[id number] Vancomycin 1,750 mg In 1000 501 500 Sodium Chloride 0.9% 500 ml @ 167 mls/hr IVPB Q12H NIRANJAN Rx#:[id number] Intake, IV Titration 600 Amount Heparin Sod,Pork in 0.45% 500 NaCl 25,000 unit In 0.45 % NaCl 1 500ml.bag @ 8.9 UNITS/KG/HR 19.93 mls/hr IV .Q24H NIRANJAN Rx#: [id number] Potassium Chloride 20 meq 100 In Water For Injection 1 100ml.bag @ 50 mls/hr IVPB Q2HR NIRANJAN Rx#: [id number] Oral 120 Output: Urine 1875 1325 260 Other: Voiding Method Indwelling Catheter Indwelling Catheter Indwelling Catheter ABP, PAP, CO, CI - Last Documented Arterial Blood Pressure 24/24 - Exam Physical Exam: Revealed a 77-year-old female, obese, on BiPAP Head: Atraumatic, normocephalic. HEENT:[Neck is supple.] [No neck masses.] [No thyromegaly.] [No JVD.] PERRLA, EOMI, moist mucous membranes, no icterus was noted. Left sided subclavian triple-lumen catheter is noted to be in place. Chest: [Symmetrical expansion, diminished breath sounds at the bases especially at the left base, with crackles. No rhonchi, no wheezes.] Cardiac Exam: [Irregular irregular rhythm Normal S1 and S2, no S3 gallop, 3/6 systolic murmur heard best over the anterior chest wall Abdomen: Obese, [Soft, nontender, no megaly, no rebound, no guarding, normal bowel sounds.] Extremities: [No clubbing, no edema, no cyanosis.] Neurological Exam: [No focal neurologic deficit.] Alert oriented 3, Psychiatric: Normal mood affect and mental status examination. Lymphatics: No lymphadenopathy. Skin: No rashes. Musculoskeletal: No limitations in range of motion. - Labs CBC & Chem 7: 05/22/18 04:50 05/22/18 04:50 Labs: Abnormal Lab Results - Last 24 Hours (Table) 05/21/18 05/21/18 05/22/18 Range/Units 18:03 23:16 04:50 WBC (3.8-10.6) k/uL Neutrophils # (1.3-7.7) k/uL Lymphocytes # (1.0-4.8) k/uL Monocytes # (0-1.0) k/uL PT (9.0-12.0) sec INR (<1.2) Carbon Dioxide 39 H (22-30) mmol/L BUN 55 H (7-17) mg/dL Glucose 150 H (74-99) mg/dL POC Glucose (mg/dL) 128 H 136 H (75-99) mg/dL Magnesium 2.6 H (1.6-2.3) mg/dL 05/22/18 05/22/18 05/22/18 Range/Units 04:50 04:50 06:09 WBC 28.5 H* (3.8-10.6) k/uL Neutrophils # 26.0 H (1.3-7.7) k/uL Lymphocytes # 0.8 L (1.0-4.8) k/uL Monocytes # 1.3 H (0-1.0) k/uL PT 14.2 H (9.0-12.0) sec INR 1.5 H (<1.2) Carbon Dioxide (22-30) mmol/L BUN (7-17) mg/dL Glucose (74-99) mg/dL POC Glucose (mg/dL) 150 H (75-99) mg/dL Magnesium (1.6-2.3) mg/dL 05/22/18 Range/Units 12:01 WBC (3.8-10.6) k/uL Neutrophils # (1.3-7.7) k/uL Lymphocytes # (1.0-4.8) k/uL Monocytes # (0-1.0) k/uL PT (9.0-12.0) sec INR (<1.2) Carbon Dioxide (22-30) mmol/L BUN (7-17) mg/dL Glucose (74-99) mg/dL POC Glucose (mg/dL) 181 H (75-99) mg/dL Magnesium (1.6-2.3) mg/dL Microbiology - Last 24 Hours (Table) 05/19/18 11:15 Gram Stain - Final Bronchial Washings - Right Bronchial Washings Culture - Final Methicillin resist S. aureus 05/18/18 06:59 Blood Culture - Preliminary Blood No Growth after 96 hours 05/18/18 20:50 Gram Stain - Final Sputum Sputum Culture - Final Methicillin resist S. aureus Assessment and Plan Assessment: 1 acute hypoxic respiratory failure with bilateral lower lobe pneumonia and possibly component of diastolic CHF. The patient presented emergency department with acute respiratory arrest, intubated and placed on a mechanical ventilator On 05/12/2018 the patient remains intubated on a mechanical ventilator. There is improvement in oxygenation and FiO2 has been drop down to 60%. There is also further weaning the FiO2 down knowing that the patient's pulse ox and the pO2 is above 100. Meanwhile, the sputum cultures still pending. The patient is on a broad-spectrum antibiotic coverage with a combination of Zosyn and Levaquin. The patient is still sedated on a mechanical ventilator, intubated. On 05/13/2018, the patient remains on a mechanical ventilator. The patient is oxygenating and ventilating well. She is on the same antibiotic coverage. There is persistent but the pulmonary consolidation and infiltrates most on the right. The patient is on Zosyn and Levaquin the patient will be started on diuretics should there be a component of interstitial/pulmonary edema in association with his underlying pneumonia. Cultures of been all negative thus far. The patient remains hemodynamically stable. On 05/14/2018, the patient is still on a mechanical ventilator. There is some improvement in the chest x-ray findings and the patient is not ready for extubation yet. Hemodynamically stable for now. Overnight the patient had issues with SVT and currently she is in atrial fibrillation with a controlled rate. She is being diuresed gently. She is also being covered with broad- spectrum antibiotics regarding bilateral pneumonia. The sputum culture is negative for now. On 05/15/2018 I'm not seeing any major change in the patient's chest x-ray finding. She still has bilateral airspace disease probably combination of pneumonia fluids. The patient initially suspected to have pneumonia. Subsequently she was found to have severe mitral stenosis and regurgitation which probably is contributing to her respiratory failure. She has severe valvular heart disease and please refer to the echocardiogram results. She remains on broad-spectrum antibiotics. CAT scan of the chest was noted and reviewed. On 05/16/2018, and attempt of weaning was done, patient was placed on a pressure support of 10 and CPAP, noted to develop significant tachypnea, tachycardia, hence no more attempts were made, patient was placed back on assist control mode of mechanical ventilation. On 05/19/2018, patient underwent bronchoscopy and bronchoalveolar lavage of the right lower lobe. Again failed an attempt of weaning using pressure support and CPAP. Patient was noted to be quite tachypneic, and tachycardic at the time of bleeding with a pressure support of 12 and CPAP. On 05/20/2018, patient was extubated, extubated to BiPAP with a IPAP of 16 and EPAP of 8. FiO2 will be kept at 50%. Again the plan is to continue present treatment plan, and the patient fails, comfort care measures will be instituted as per the wishes of the patient and her family. In the meantime I have recommended more diuretics, and vancomycin was added. Mostly because of the Gram stain from the bronchial washing is showing gram-positive cocci in clusters. This turned out to be MRSA. On 05/21/2018, remains intermittently on BiPAP and high flow nasal cannula, patient is having episodes of hemoptysis and I would recommend stopping heparin and Coumadin for now. 2 right lower lobe MRSA pneumonia as noted from the bronchial washings from 05/19. Patient will remain on vancomycin. 3 acute cardiac pulmonary arrest with brief loss in progress where the patient received CPR and received a dose of epinephrine with return of spontaneous circulation. Currently on no pressors. No signs of any hypoxic encephalopathy and the patient was given a brief sedation holiday and she was able to follow simple commands without any major difficulties 4 lactic acidosis secondary to above, improving and recovered 5 leukocytosis secondary to above, improving, and recovered 6 morbid obesity with a BMI of 43.4 7 obstructive sleep apnea 8 severe persistent bronchial asthma 9 history of right hemidiaphragmatic plication for unilateral paralysis 10 moderate to severe severe aortic stenosis and mitral stenosis, with a preserved LV function as evident on the echocardiogram 11 history of TIA 12 nephrolithiasis 13 gouty arthritis 14 hypothyroidism 13 hypertension 16 hyperlipidemia 17 history of atrial fibrillation on Rythmol and her current rhythm is back in atrial fibrillation with a controlled rate. 18 acid reflux 19 gout 20 degenerative arthritis 21 episodes of SVT, cardioverted 22 right sided pleural effusion, seen on ultrasound to be less than 5 cm, not safe to perform thoracentesis. 23 intermittent episodes of hemoptysis secondary to pneumonia and the fact that the patient is on anticoagulation therapy including heparin and Coumadin. Hence I would hold both for now. Recommendation: Continue present supportive care measures, continue BiPAP and affect on high flow nasal cannula while eating, updated her family on her condition. We'll continue to monitor in the ICU. Time with Patient: Less than 30
--- NOTE | 2018-05-22 15:16 | P.PN ---
Subjective 77-year-old female with multiple medical problems listed to sleep apnea severe COPD congestive heart failure admitted for acute respiratory failure most probably from COPD patient was extubated yesterday patient didn't do well postextubation patient is on and off BiPAP. Patient is presently on BiPAP. Patient is presently rate controlled does have atrial fibrillation is on anticoagulation patient had a cardiopulmonary arrest before this hospitalization. I had extensive discussion with the patient as well as family members regarding comfort care. Her overall prognosis is extremely poor patient bronchial cultures are positive for MRSA and patient is on vancomycin. 05/22/2018 Patient chest x-ray is bit worse patient remains on BiPAP no significant improvement actually bit worse. Discussed with the daughter today. If patient doesn't improve by tomorrow, discussion regarding comfort care and hospice is reasonable. Objective - Vital Signs Vital signs: Vital Signs Temp 97.6 F 05/22/18 12:00 Pulse 64 05/22/18 14:00 Resp 18 05/22/18 14:00 BP 108/54 05/22/18 14:00 Pulse Ox 96 05/22/18 14:00 Intake & Output 05/21/18 05/22/18 05/22/18 18:59 06:59 18:59 Intake Total 1780 791 580 Output Total 1875 1325 1110 Balance -95 -534 -530 Weight 113.1 kg 114.1 kg 114.1 kg Intake: IV 1180 671 580 Piperacillin-Tazobactam 3 50 50 .375 gm In Dextrose/Water 1 50ml.bag @ 12.5 mls/hr IVPB Q8H [facility] Rx#: [id number] Sodium Chloride 0.9% 1, 130 120 80 000 ml @ 10 mls/hr IV . Q24H [facility] Rx#:[id number] Vancomycin 1,750 mg In 1000 501 500 Sodium Chloride 0.9% 500 ml @ 167 mls/hr IVPB Q12H [facility] Rx#:[id number] Intake, IV Titration 600 Amount Heparin Sod,Pork in 0.45% 500 NaCl 25,000 unit In 0.45 % NaCl 1 500ml.bag @ 8.9 UNITS/KG/HR 19.93 mls/hr IV .Q24H [facility] Rx#: [id number] Potassium Chloride 20 meq 100 In Water For Injection 1 100ml.bag @ 50 mls/hr IVPB Q2HR [facility] Rx#: [id number] Oral 120 Output: Urine 1875 1325 1110 Other: Voiding Method Indwelling Catheter Indwelling Catheter Indwelling Catheter ABP, PAP, CO, CI - Last Documented Arterial Blood Pressure - Exam PHYSICAL EXAMINATION: GENERAL: The patient is alert and oriented x3, not in any acute distress. Obese. HEENT: Pupils are round and equally reacting to light. EOMI. No scleral icterus. No conjunctival pallor. Normocephalic, atraumatic. No pharyngeal erythema. No thyromegaly. CARDIOVASCULAR: S1 and S2 present. No murmurs, rubs, or gallops. PULMONARY: Gross breath sounds is in respiratory distress on BiPAP ABDOMEN: Soft, nontender, nondistended, normoactive bowel sounds. No palpable organomegaly. MUSCULOSKELETAL: No joint swelling or deformity. EXTREMITIES: No cyanosis, clubbing, or pedal edema. NEUROLOGICAL: Gross neurological examination did not reveal any focal deficits. SKIN: No rashes. - Labs CBC & Chem 7: 05/22/18 04:50 05/22/18 04:50 Labs: Abnormal Lab Results - Last 24 Hours (Table) 05/21/18 05/21/18 05/22/18 Range/Units 18:03 23:16 04:50 WBC (3.8-10.6) k/uL Neutrophils # (1.3-7.7) k/uL Lymphocytes # (1.0-4.8) k/uL Monocytes # (0-1.0) k/uL PT (9.0-12.0) sec INR (<1.2) Carbon Dioxide 39 H (22-30) mmol/L BUN 55 H (7-17) mg/dL Glucose 150 H (74-99) mg/dL POC Glucose (mg/dL) 128 H 136 H (75-99) mg/dL Magnesium 2.6 H (1.6-2.3) mg/dL 05/22/18 05/22/18 05/22/18 Range/Units 04:50 04:50 06:09 WBC 28.5 H* (3.8-10.6) k/uL Neutrophils # 26.0 H (1.3-7.7) k/uL Lymphocytes # 0.8 L (1.0-4.8) k/uL Monocytes # 1.3 H (0-1.0) k/uL PT 14.2 H (9.0-12.0) sec INR 1.5 H (<1.2) Carbon Dioxide (22-30) mmol/L BUN (7-17) mg/dL Glucose (74-99) mg/dL POC Glucose (mg/dL) 150 H (75-99) mg/dL Magnesium (1.6-2.3) mg/dL 05/22/18 Range/Units 12:01 WBC (3.8-10.6) k/uL Neutrophils # (1.3-7.7) k/uL Lymphocytes # (1.0-4.8) k/uL Monocytes # (0-1.0) k/uL PT (9.0-12.0) sec INR (<1.2) Carbon Dioxide (22-30) mmol/L BUN (7-17) mg/dL Glucose (74-99) mg/dL POC Glucose (mg/dL) 181 H (75-99) mg/dL Magnesium (1.6-2.3) mg/dL Microbiology - Last 24 Hours (Table) 05/19/18 11:15 Gram Stain - Final Bronchial Washings - Right Bronchial Washings Culture - Final Methicillin resist S. aureus 05/18/18 06:59 Blood Culture - Preliminary Blood No Growth after 96 hours 05/18/18 20:50 Gram Stain - Final Sputum Sputum Culture - Final Methicillin resist S. aureus Assessment and Plan Plan: Acute hypoxic respiratory failure. Multifactorial secondary to bilateral lower lobe pneumonia ,CHF. extubated to BiPAP (Bilateral lower lobe pneumonia. Right greater than left), patient is on IV vancomycin patient the bronchial cultures are positive for staph aureus patient appears to have staph early pneumonia Acute cardio pulmonary arrest with brief loss of pulse status post CPR and a dose of epinephrine with return of spontaneous circulation. Lactic acidosis 5.9 on admission improving, recovered Sepsis secondary to pneumonia Obstructive sleep apnea on BiPAP at home Morbid obesity with BMI 44.9 with possible underlying obesity hypoventilation Acute on chronic CHF with systolic dysfunction as well as valvular heart disease History of right hemidiaphragmatic plication for unilateral paralysis History of TIA Nephrolithiasis Osteoarthritis Hypothyroidism with low free T4 level and elevated TSH. Uncontrolled History of atrial fibrillation. Paroxysmal. Currently in sinus rhythm on Rythmol GERD Gout status post bronchoscopy with lavage of right lower lobe No Code, no CPR as per family's wishes. Her overall prognosis and poor considering her obesity hypoventilation syndrome morbid obesity sleep apnea and possibility of COPD. Patient does use oxygen at home does use BiPAP at home at nighttime. Patient is on BiPAP at this point of time without BiPAP patient desaturates very quickly.
[2018-05-22] MEDS: LACTATED RINGERS 1,000 ML IV SCH (17:54)
[2018-05-22] MEDS: LEVOFLOXACIN 750MG-D5W PMX 750 MG in DEXTROSE/WATER 1 150ML.BAG IVPB SCH (17:58)
[2018-05-22 23:26] LABS: Glucose,Whole Blood 133 mg/dL (75-99)
[2018-05-23] MEDS: PIPERACILLIN-TAZOBACTAM 3.375 GM in DEXTROSE/WATER 1 50ML.BAG IVPB SCH (03:47)
[2018-05-23 03:59] LABS: Glucose,Whole Blood 147 mg/dL (75-99)
[2018-05-23 04:32] LABS: Basophils % (A) 0 %; Eosinophils % (A) 0 %; HCT 31.6 % (34.0-46.0); Hypochromasia Slight; Lymphocytes # (A) 0.4 k/uL (1.0-4.8); Lymphocytes % (A) 3 %; MCH 28.7 pg (25.0-35.0); MCHC 31.6 g/dL (31.0-37.0); MCV 90.8 fL (80.0-100.0); Mean Platelet Volume 7.5; Monocytes # (A) 0.7 k/uL (0-1.0); Monocytes % (A) 5 %; Neutrophils # (A) 13.8 k/uL (1.3-7.7); Neutrophils % (A) 91 %; Platelet Count 149 k/uL (150-450); RBC 3.48 m/uL (3.80-5.40); RDW 14.7 % (11.5-15.5); WBC 15.2 k/uL (3.8-10.6)
[2018-05-23 04:41] LABS: Calcium 8.4 mg/dL (8.4-10.2); Magnesium 2.5 mg/dL (1.6-2.3); Phosphorus 3.9 mg/dL (2.5-4.5); Potassium 3.5 mmol/L (3.5-5.1)
[2018-05-23] MEDS: POTASSIUM BICARBONATE/CIT AC 20 MEQ TABLET.EFF NG-TUBE SCH ×4 (05:16→15:19)
[2018-05-23] MEDS: methylPREDNISolone SOD SUCCI 125 MG/2 ML VIAL IV SCH ×4 (05:46→23:34)
[2018-05-23] MEDS: INSULIN ASPART 100 UNIT/ML 1 ML 10 ML VIAL SQ SCH ×4 (05:57→23:34)
[2018-05-23] MEDS: LEVOTHYROXINE 50 MCG TAB PO SCH (06:09)
[2018-05-23 06:11] LABS: Glucose,Whole Blood 160 mg/dL (75-99)
[2018-05-23 06:12] LABS: ABG HCO3 40 mmol/L (21-25)
[2018-05-23] MEDS: IPRATROPIUM-ALBUTEROL 3 ML NEB INHALATION SCH ×4 (07:46→19:49)
--- NOTE | 2018-05-23 07:59 | PN ---
PROGRESS NOTE Mrs. Tuttle is a 77-year-old female who presented with pneumonia, respiratory failure requiring mechanical ventilation. She is extubated on the BiPAP, awake, alert. Hemodynamically, she is stable. She is still requiring the BiPAP because of episode of hypoxemia. She has a good urinary output. There is no further episode of atrial fibrillation. She continues to be on amiodarone 200 mg twice a day, diltiazem 30 mg 3 times a day, furosemide 40 mg IV twice a day, Diamox 250 mg twice a day, levothyroxine in addition to her antibiotics. PHYSICAL EXAMINATION: Blood pressure running in the 140 to 150 with the heart rate 60s. LUNGS: Clear anteriorly. HEART: Regular rate and rhythm S1, S2. No S3 with systolic murmur heard at the base, ejection type. ABDOMEN: Soft, nontender. EXTREMITIES: No significant edema. NEUROLOGICALLY: She is awake and alert. LAB DATA: White blood cell of 15.2, hemoglobin of 10. BUN and creatinine 54 and 0.93. Bicarb of 40. IMPRESSION: 1. Respiratory failure with pneumonia and methicillin-resistant Staphylococcus aureus. 2. Superimposed congestive heart failure with preserved systolic function and history of hypertrophic cardiomyopathy. 3. Paroxysmal atrial fibrillation, remains in sinus mechanism. RECOMMENDATION: From the cardiac standpoint, we will continue present therapy. Patient will receive IV Lasix. Her chest x-ray revealed the evidence of heart failure. We will follow her renal function. Continue the antibiotic treatment and monitor her respiratory status. MMODL / IJN: [id number] /
--- NOTE | 2018-05-23 08:11 | XR ---
EXAMINATION TYPE: XR chest 1V portable DATE OF EXAM: 05/23/2018 COMPARISON: 05/22/2018 INDICATION: Pneumonia TECHNIQUE: Single frontal view of the chest is obtained. FINDINGS: The heart size is normal. The pulmonary vasculature is at the upper limits of normal. There is elevation of the right diaphragm. Patchy infiltrate is present greater on the right. Left pl eural effusion is present. Right pleural effusion is not excluded. Left central venous catheter is stable tip in the superior vena cava region. IMPRESSION: 1. Patchy infiltrates worsening from comparison. Small pleural effusions are present. There is elevat ion of the right diaphragm. Correlate for worsening pneumonia.
--- NOTE | 2018-05-23 08:39 | P.PN ---
Subjective Progress Note Date: 05/23/18 Principal diagnosis: Respiratory failure Progress note dated 05/23/2018 This is a DO NOT RESUSCITATE patient who is 77 years of age. She was admitted way back on May 11 for respiratory failure. She was intubated on May 11 and finally extubated on the . She had bronchoscopy on the which apparently revealed methicillin-resistant staph aureus. Since extubation on the , she has been BiPAP dependent with settings of IPAP 16 EPAP 8 and an FiO2 50%. He is getting a saline IV just at KVO. As mentioned above, she is a DO NOT RESUSCITATE. She's been seen by my partners over the last number of days. The chest x-ray shows significant bilateral alveolar airspace disease with small effusions. None pleural effusion to do a thoracentesis on. Bronchial washings were positive for MRSA. Cytology has been negative. The patient remains on good antibiotic coverage. Overall, her prognosis remains poor. Her previous health was not very good. I'm glad that she has chosen to be a DO NOT RESUSCITATE and not to be reintubated. I think that is appropriate. Chest x-ray shows bilateral diffuse infiltrates. White count 15.2 hemoglobin 10 hematocrit 31.6 platelet count 149,000. Sodium potassium chloride normal CO2 40 be any crab were 54 and 0.93 bronchoscopy washings and sputum show evidence of methicillin resistant staph aureus. Medications are reviewed. Objective - Vital Signs Vital signs: Vital Signs Temp 97.9 F 05/23/18 05:00 Pulse 57 L 05/23/18 08:00 Resp 20 05/23/18 07:00 BP 154/64 05/23/18 07:00 Pulse Ox 97 05/23/18 07:46 Intake & Output 05/22/18 05/23/18 05/23/18 18:59 06:59 18:59 Intake Total 660 721 80 Output Total 1340 1790 40 Balance -680 -1069 40 Weight 114.1 kg 110.8 kg Intake: IV 660 721 20 Levofloxacin 750Mg-D5w 50 Pmx 750 mg In Dextrose/ Water 1 150ml.bag @ 100 mls/hr IVPB Q24H [facility] Rx#: [id number] Piperacillin-Tazobactam 3 50 .375 gm In Dextrose/Water 1 50ml.bag @ 12.5 mls/hr IVPB Q8H [facility] Rx#: [id number] Sodium Chloride 0.9% 1, 110 170 20 000 ml @ 10 mls/hr IV . Q24H [facility] Rx#:[id number] Vancomycin 1,750 mg In 500 501 Sodium Chloride 0.9% 500 ml @ 167 mls/hr IVPB Q12H [facility] Rx#:[id number] Oral 60 Output: Urine 1340 1790 40 Other: Voiding Method Indwelling Catheter Indwelling Catheter # Bowel Movements 1 ABP, PAP, CO, CI - Last Documented Arterial Blood Pressure 24/ - Exam No acute distress, BiPAP mask in place. Patient does arouse appropriately.. HEENT examination is grossly unremarkable. Mucous membranes are moist. Neck supple. Full range of motion. No adenopathy thyromegaly or neck vein distention. Cardiovascular examination reveals regular rhythm rate. S1-S2 normal. No S3 or S4. No discernible murmur noted. Lungs reveal severely diminished breath sounds throughout. There is coarse bilateral rhonchi and crackles. No wheezes. Breath sounds are equal bilaterally. Abdomen soft. Bowel sounds are not noted. No masses or tenderness. Extremities are intact. No cyanosis clubbing or edema. Skin is without rash or lesion. Neurologic examination is difficult to assess. - Labs CBC & Chem 7: 05/23/18 04:20 05/23/18 04:20 Labs: Abnormal Lab Results - Last 24 Hours (Table) 05/18/18 05/22/18 05/22/18 Range/Units 07:38 12:01 23:24 WBC (3.8-10.6) k/uL RBC (3.80-5.40) m/uL Hgb (11.4-16.0) gm/dL Hct (34.0-46.0) % Plt Count (150-450) k/uL Neutrophils # (1.3-7.7) k/uL Lymphocytes # (1.0-4.8) k/uL ABG HCO3 40 H* (21-25) mmol/L Carbon Dioxide (22-30) mmol/L BUN (7-17) mg/dL Glucose (74-99) mg/dL POC Glucose (mg/dL) 181 H 133 H (75-99) mg/dL Magnesium (1.6-2.3) mg/dL 05/23/18 05/23/18 05/23/18 Range/Units 03:57 04:20 04:20 WBC 15.2 H (3.8-10.6) k/uL RBC 3.48 L (3.80-5.40) m/uL Hgb 10.0 L D (11.4-16.0) gm/dL Hct 31.6 L (34.0-46.0) % Plt Count 149 L (150-450) k/uL Neutrophils # 13.8 H (1.3-7.7) k/uL Lymphocytes # 0.4 L (1.0-4.8) k/uL ABG HCO3 (21-25) mmol/L Carbon Dioxide 40 H* (22-30) mmol/L BUN 54 H (7-17) mg/dL Glucose 145 H (74-99) mg/dL POC Glucose (mg/dL) 147 H (75-99) mg/dL Magnesium 2.5 H (1.6-2.3) mg/dL 05/23/18 Range/Units 05:52 WBC (3.8-10.6) k/uL RBC (3.80-5.40) m/uL Hgb (11.4-16.0) gm/dL Hct (34.0-46.0) % Plt Count (150-450) k/uL Neutrophils # (1.3-7.7) k/uL Lymphocytes # (1.0-4.8) k/uL ABG HCO3 (21-25) mmol/L Carbon Dioxide (22-30) mmol/L BUN (7-17) mg/dL Glucose (74-99) mg/dL POC Glucose (mg/dL) 160 H (75-99) mg/dL Magnesium (1.6-2.3) mg/dL Microbiology - Last 24 Hours (Table) 05/19/18 11:15 Gram Stain - Final Bronchial Washings - Right Bronchial Washings Culture - Final Methicillin resist S. aureus 05/18/18 06:59 Blood Culture - Preliminary Blood No Growth after 96 hours Assessment and Plan Assessment: Assessment Acute hypoxemic respiratory failure secondary to bilateral diffuse infiltrates, which may relate to pneumonia and/or fluid overload. MRSA pneumonia Status post intubation on May 11 and subsequent extubation on May 20 for respiratory failure Acute cardiopulmonary arrest. Lactic acidemia, resolved Morbid obesity Sleep apnea History of asthma Previous history of right diaphragm plication Moderate to severe aortic stenosis History of TIA Kidney stones Gout Hypothyroidism Hypertension Hyperlipidemia History of atrial fibrillation History of DJD Small right-sided pleural effusion Plan: Plan dated 05/23/2018 I will discuss the condition with the family. Prognosis remains very guarded giving her methotrexate and medical problems. Chest x-ray shows diffuse bilateral infiltrates consistent with either fluid overload and/or MRSA pneumonia. She remains BiPAP dependent which is not a good sign. Labs and x- rays are reviewed. Medications are reviewed. Zosyn and Levaquin is discontinued as cultures are only positive for methicillin-resistant staph aureus. The patient remains on vancomycin. Med list is evaluated and unnecessary medications are discontinued. Critical care time 36 minutes Time with Patient: Greater than 30
[2018-05-23] MEDS: FUROSEMIDE 10 MG/ML 4 ML VIAL IV SCH ×3 (09:33→19:11)
[2018-05-23] MEDS: AMIODARONE 200 MG TAB PO SCH ×2 (09:33→22:14)
[2018-05-23] MEDS: DILTIAZEM ORAL 30 MG TAB PO SCH ×3 (09:33→22:14)
[2018-05-23] MEDS: PANTOPRAZOLE 40 MG/10 ML VIAL IVP SCH (09:34)
[2018-05-23] MEDS: VANCOMYCIN 1,750 MG in SODIUM CHLORIDE 0.9% 500 ML IVPB SCH ×2 (09:38→22:40)
[2018-05-23] MEDS: AMIODARONE 450 MG in DEXTROSE 5% IN WATER 250 ML IV SCH ×2 (10:54)
[2018-05-23] MEDS: LACTULOSE 20 GM/30 ML CUP PO SCH ×3 (10:55→22:14)
--- NOTE | 2018-05-23 11:13 | P.PN ---
Subjective Patient continues in intensive care unit. On dependent on BiPAP. Patient's awake and alert answers appropriately. Chest x-ray shows progressive pneumonia. Family at bedside stated they did not want patient reintubated. Patient also noted to be hypotensive nurse aware Objective - Vital Signs Vital signs: Vital Signs Temp 97.9 F 05/23/18 05:00 Pulse 57 L 05/23/18 08:00 Resp 20 05/23/18 07:00 BP 154/64 05/23/18 07:00 Pulse Ox 97 05/23/18 07:46 Intake & Output 05/22/18 05/23/18 05/23/18 18:59 06:59 18:59 Intake Total 660 721 80 Output Total 1340 1790 40 Balance -680 -1069 40 Weight 114.1 kg 110.8 kg 110.8 kg Intake: IV 660 721 20 Levofloxacin 750Mg-D5w 50 Pmx 750 mg In Dextrose/ Water 1 150ml.bag @ 100 mls/hr IVPB Q24H [facility] Rx#: [id number] Piperacillin-Tazobactam 3 50 .375 gm In Dextrose/Water 1 50ml.bag @ 12.5 mls/hr IVPB Q8H [facility] Rx#: [id number] Sodium Chloride 0.9% 1, 110 170 20 000 ml @ 10 mls/hr IV . Q24H [facility] Rx#:[id number] Vancomycin 1,750 mg In 500 501 Sodium Chloride 0.9% 500 ml @ 167 mls/hr IVPB Q12H [facility] Rx#:[id number] Oral 60 Output: Urine 1340 1790 40 Other: Voiding Method Indwelling Catheter Indwelling Catheter # Bowel Movements 1 ABP, PAP, CO, CI - Last Documented Arterial Blood Pressure - Constitutional General appearance: Present: morbidly obese - EENT Eyes: Present: PERRLA Ears: bilateral: normal - Neck Neck: Present: normal ROM - Respiratory Respiratory: bilateral: diminished - Cardiovascular Abnormal Heart Sounds: Present: systolic murmur - Gastrointestinal General gastrointestinal: Present: soft - Integumentary Integumentary: Present: normal - Musculoskeletal Musculoskeletal: Present: generalized weakness - Psychiatric Psychiatric: Present: A&O x's 3, appropriate affect - Labs CBC & Chem 7: 05/23/18 04:20 05/23/18 04:20 Labs: Abnormal Lab Results - Last 24 Hours (Table) 05/18/18 05/22/18 05/22/18 Range/Units 07:38 12:01 23:24 WBC (3.8-10.6) k/uL RBC (3.80-5.40) m/uL Hgb (11.4-16.0) gm/dL Hct (34.0-46.0) % Plt Count (150-450) k/uL Neutrophils # (1.3-7.7) k/uL Lymphocytes # (1.0-4.8) k/uL ABG HCO3 40 H* (21-25) mmol/L Carbon Dioxide (22-30) mmol/L BUN (7-17) mg/dL Glucose (74-99) mg/dL POC Glucose (mg/dL) 181 H 133 H (75-99) mg/dL Magnesium (1.6-2.3) mg/dL 05/23/18 05/23/18 05/23/18 Range/Units 03:57 04:20 04:20 WBC 15.2 H (3.8-10.6) k/uL RBC 3.48 L (3.80-5.40) m/uL Hgb 10.0 L D (11.4-16.0) gm/dL Hct 31.6 L (34.0-46.0) % Plt Count 149 L (150-450) k/uL Neutrophils # 13.8 H (1.3-7.7) k/uL Lymphocytes # 0.4 L (1.0-4.8) k/uL ABG HCO3 (21-25) mmol/L Carbon Dioxide 40 H* (22-30) mmol/L BUN 54 H (7-17) mg/dL Glucose 145 H (74-99) mg/dL POC Glucose (mg/dL) 147 H (75-99) mg/dL Magnesium 2.5 H (1.6-2.3) mg/dL 05/23/18 Range/Units 05:52 WBC (3.8-10.6) k/uL RBC (3.80-5.40) m/uL Hgb (11.4-16.0) gm/dL Hct (34.0-46.0) % Plt Count (150-450) k/uL Neutrophils # (1.3-7.7) k/uL Lymphocytes # (1.0-4.8) k/uL ABG HCO3 (21-25) mmol/L Carbon Dioxide (22-30) mmol/L BUN (7-17) mg/dL Glucose (74-99) mg/dL POC Glucose (mg/dL) 160 H (75-99) mg/dL Magnesium (1.6-2.3) mg/dL Microbiology - Last 24 Hours (Table) 05/18/18 06:59 Blood Culture - Preliminary Blood No Growth after 120 hours 05/18/18 20:50 Gram Stain - Final Sputum Sputum Culture - Final Methicillin resist S. aureus 05/19/18 11:15 Gram Stain - Final Bronchial Washings - Right Bronchial Washings Culture - Final Methicillin resist S. aureus - Imaging and Cardiology Chest x-ray: report reviewed Assessment and Plan Plan: Assessment Acute hypoxic respiratory failure secondary to pneumonia or congestive heart failure Patient is post intubation on BiPAP Pneumonia bilateral worsening is noted per recent chest x-ray Sepsis secondary to pneumonia MRSA Post the acute cardiopulmonary arrest Sleep apnea with BiPAP at home Morbid obesity BMI 44.9 Acute on chronic congestive heart failure with systolic dysfunction as well as valvular heart disease Right hemidiaphragmatic paralysis History of TIA History of osteoarthritis hypothyroidism History of atrial fibrillation paroxysmal GERD Gout Post bronchoscopy Hypotension Plan No code no CPR per family wishes Continue consultation with pulmonology cardiology Continues on vancomycin
[2018-05-23 12:14] LABS: Glucose,Whole Blood 155 mg/dL (75-99)
[2018-05-23] MEDS: SODIUM CHLORIDE 0.9% 1,000 ML IV SCH (12:20)
[2018-05-23] MEDS: LACTATED RINGERS 1,000 ML IV SCH (17:25)
[2018-05-23 17:33] LABS: Glucose,Whole Blood 142 mg/dL (75-99)
[2018-05-23 22:57] LABS: Magnesium 2.5 mg/dL (1.6-2.3); Potassium 3.5 mmol/L (3.5-5.1)
[2018-05-23 23:33] LABS: Glucose,Whole Blood 171 mg/dL (75-99)
[2018-05-24] MEDS ORDERED: POTASSIUM BICARBONATE/CIT AC 20 MEQ TABLET.EFF NG-TUBE SCH
[2018-05-24] MEDS: POTASSIUM CHLORIDE 20 MEQ in WATER FOR INJECTION 1 100ML.BAG IVPB SCH ×2 (00:07→02:43)
[2018-05-24 05:28] LABS: HCT 33.2 % (34.0-46.0); HGB 10.5 gm/dL (11.4-16.0); Hypochromasia Slight; MCH 28.7 pg (25.0-35.0); MCHC 31.8 g/dL (31.0-37.0); MCV 90.4 fL (80.0-100.0); Mean Platelet Volume 7.8; Platelet Count 158 k/uL (150-450); RBC 3.67 m/uL (3.80-5.40); RDW 15.1 % (11.5-15.5); WBC 21.1 k/uL (3.8-10.6)
[2018-05-24 05:37] LABS: Calcium 8.6 mg/dL (8.4-10.2); Magnesium 2.5 mg/dL (1.6-2.3); Phosphorus 3.2 mg/dL (2.5-4.5); Potassium 4.1 mmol/L (3.5-5.1)
[2018-05-24] MEDS: LEVOTHYROXINE 50 MCG TAB PO SCH (06:16)
[2018-05-24] MEDS: methylPREDNISolone SOD SUCCI 125 MG/2 ML VIAL IV SCH ×4 (06:16→23:08)
[2018-05-24 06:39] LABS: Glucose,Whole Blood 161 mg/dL (75-99)
[2018-05-24] MEDS: IPRATROPIUM-ALBUTEROL 3 ML NEB INHALATION SCH ×4 (07:39→19:34)
--- NOTE | 2018-05-24 07:57 | PN ---
PROGRESS NOTE Mrs. Tuttle is a 77-year-old female who was admitted with respiratory failure requiring mechanical ventilation. She is extubated, but remains on the BiPAP. Hemodynamically stable. Continued to be in sinus mechanism. She feels better. She is awake, alert. She has no chest pain, no palpitation. She continues to be at this time on amiodarone 200 mg twice a day, diltiazem 30 mg 3 times a day, Lasix 40 mg twice a day, levothyroxine, methylprednisone, Protonix and vancomycin. PHYSICAL EXAMINATION: Blood pressure 119/60 with the heart rate in 60s. LUNGS: Clear to auscultation anteriorly. HEART: Regular rhythm S1, S2. No S3 with systolic murmur, ejection type, heard at the base. No diastolic murmur. No rub. ABDOMEN: Soft, obese, nontender. EXTREMITIES: No significant edema. LAB DATA: Her lab data this morning revealed BUN and creatinine 57 and 0.8. Potassium 4.1. Hemoglobin 10.5. Her white blood cell up to 21.1 thousand. IMPRESSION: 1. Respiratory failure with pneumonia and methicillin-resistant Staphylococcus aureus. 2. Paroxysmal fibrillation remains in sinus mechanism, not anticoagulated because of hemoptysis. 3. History of hypertrophic cardiomyopathy. RECOMMENDATION: From the cardiac standpoint, we will continue present therapy. Continue to follow her renal function. Hopefully we can [id number] the BiPAP down and start to increase her level activity. Her prognosis remains guarded. MMODL / IJN: [id number] /
[2018-05-24] MEDS: DILTIAZEM ORAL 30 MG TAB PO SCH ×3 (08:09→20:39)
[2018-05-24] MEDS: FUROSEMIDE 10 MG/ML 4 ML VIAL IV SCH ×2 (08:10→16:57)
[2018-05-24] MEDS: PANTOPRAZOLE 40 MG/10 ML VIAL IVP SCH (08:16)
[2018-05-24] MEDS: LACTULOSE 20 GM/30 ML CUP PO SCH ×3 (08:17→20:17)
[2018-05-24] MEDS: AMIODARONE 200 MG TAB PO SCH ×2 (08:22→20:38)
[2018-05-24] MEDS: INSULIN ASPART 100 UNIT/ML 1 ML 10 ML VIAL SQ SCH ×4 (08:49→20:38)
--- NOTE | 2018-05-24 08:51 | P.PN ---
Subjective Progress Note Date: 05/24/18 Principal diagnosis: Respiratory failure Progress note dated 05/23/2018 This is a DO NOT RESUSCITATE patient who is 77 years of age. She was admitted way back on May 11 for respiratory failure. She was intubated on May 11 and finally extubated on the . She had bronchoscopy on the which apparently revealed methicillin-resistant staph aureus. Since extubation on the , she has been BiPAP dependent with settings of IPAP 16 EPAP 8 and an FiO2 50%. He is getting a saline IV just at KVO. As mentioned above, she is a DO NOT RESUSCITATE. She's been seen by my partners over the last number of days. The chest x-ray shows significant bilateral alveolar airspace disease with small effusions. None pleural effusion to do a thoracentesis on. Bronchial washings were positive for MRSA. Cytology has been negative. The patient remains on good antibiotic coverage. Overall, her prognosis remains poor. Her previous health was not very good. I'm glad that she has chosen to be a DO NOT RESUSCITATE and not to be reintubated. I think that is appropriate. Chest x-ray shows bilateral diffuse infiltrates. White count 15.2 hemoglobin 10 hematocrit 31.6 platelet count 149,000. Sodium potassium chloride normal CO2 40 be any crab were 54 and 0.93 bronchoscopy washings and sputum show evidence of methicillin resistant staph aureus. Medications are reviewed. Progress note dated 05/24/2018 The patient is again seen today. Currently she is a DO NOT RESUSCITATE. She spends half her time on BiPAP with settings of 16 IPAP and EPAP and 35% and the other time on AIRVO. Her IV is a saline IV at KVO. The patient did not have a chest x-ray today. The patient's last chest x-ray was done yesterday. I had a long talk with the family yesterday. The patient's bronchoscopy on the of this month showed epicillin resistant staph aureus. Chest x-ray shows diffuse bilateral infiltrates. We will get a chest x-ray tomorrow. The patient would not want to be reintubated again. She was very clear about that. The patient appears to be much more alert today. Still having some difficulty breathing. Not coughing very much. Not producing any phlegm. White count 21.1 hemoglobin 10.5 hematocrit 33.2 and platelet count 158,000. Sodium potassium chloride all normal. CO2 38. BUN and creatinine were 57 and 0.8. Objective - Vital Signs Vital signs: Vital Signs Temp 98.1 F 05/24/18 04:00 Pulse 63 05/24/18 07:56 Resp 19 05/24/18 07:00 BP 119/63 05/24/18 07:00 Pulse Ox 96 05/24/18 07:00 Intake & Output 05/23/18 05/24/18 05/24/18 18:59 06:59 18:59 Intake Total 801 960 Output Total 1830 1360 Balance -1029 -400 Weight 110.8 kg 109.5 kg Intake: IV 741 460 Potassium Chloride 20 meq 200 In Water For Injection 1 100ml.bag @ 50 mls/hr IVPB Q2H NIRANJAN Rx#: [id number] Sodium Chloride 0.9% 1, 240 260 000 ml @ 10 mls/hr IV . Q24H NIRANJAN Rx#:[id number] Vancomycin 1,750 mg In 501 Sodium Chloride 0.9% 500 ml @ 167 mls/hr IVPB Q12H NIRANJAN Rx#:[id number] Oral 60 500 Output: Urine 1830 1360 Other: Voiding Method Indwelling Catheter Indwelling Catheter ABP, PAP, CO, CI - Last Documented Arterial Blood Pressure - Exam No acute distress, Nasal O2 in place. Patient appears much more alert today than yesterday. HEENT examination is grossly unremarkable. Mucous membranes are moist. Neck supple. Full range of motion. No adenopathy thyromegaly or neck vein distention. Cardiovascular examination reveals regular rhythm rate. S1-S2 normal. No S3 or S4. A loud systolic murmur of aortic stenosis is noted.. Lungs reveal severely diminished breath sounds throughout. There is coarse bilateral rhonchi and crackles. No wheezes. Breath sounds are equal bilaterally. Abdomen soft. Bowel sounds are not noted. No masses or tenderness. Extremities are intact. No cyanosis clubbing or edema. Skin is without rash or lesion. Neurologic examination is brief but nonfocal. - Labs CBC & Chem 7: 05/24/18 05:20 05/24/18 05:20 Labs: Abnormal Lab Results - Last 24 Hours (Table) 05/23/18 05/23/18 05/23/18 Range/Units 12:12 17:32 22:30 WBC (3.8-10.6) k/uL RBC (3.80-5.40) m/uL Hgb (11.4-16.0) gm/dL Hct (34.0-46.0) % Carbon Dioxide (22-30) mmol/L BUN (7-17) mg/dL Glucose (74-99) mg/dL POC Glucose (mg/dL) 155 H 142 H (75-99) mg/dL Magnesium 2.5 H (1.6-2.3) mg/dL 05/23/18 05/24/18 05/24/18 Range/Units 23:31 05:20 05:20 WBC 21.1 H (3.8-10.6) k/uL RBC 3.67 L (3.80-5.40) m/uL Hgb 10.5 L (11.4-16.0) gm/dL Hct 33.2 L (34.0-46.0) % Carbon Dioxide 38 H (22-30) mmol/L BUN 57 H (7-17) mg/dL Glucose 159 H (74-99) mg/dL POC Glucose (mg/dL) 171 H (75-99) mg/dL Magnesium 2.5 H (1.6-2.3) mg/dL 05/24/18 Range/Units 06:37 WBC (3.8-10.6) k/uL RBC (3.80-5.40) m/uL Hgb (11.4-16.0) gm/dL Hct (34.0-46.0) % Carbon Dioxide (22-30) mmol/L BUN (7-17) mg/dL Glucose (74-99) mg/dL POC Glucose (mg/dL) 161 H (75-99) mg/dL Magnesium (1.6-2.3) mg/dL Microbiology - Last 24 Hours (Table) 05/18/18 06:59 Blood Culture - Preliminary Blood No Growth after 120 hours 05/18/18 20:50 Gram Stain - Final Sputum Sputum Culture - Final Methicillin resist S. aureus 05/19/18 11:15 Gram Stain - Final Bronchial Washings - Right Bronchial Washings Culture - Final Methicillin resist S. aureus Assessment and Plan Assessment: Assessment Acute hypoxemic respiratory failure secondary to bilateral diffuse infiltrates, which may relate to pneumonia and/or fluid overload. MRSA pneumonia Status post intubation on May 11 and subsequent extubation on May 20 for respiratory failure Acute cardiopulmonary arrest. Lactic acidemia, resolved Morbid obesity Sleep apnea History of asthma Previous history of right diaphragm plication Moderate to severe aortic stenosis History of TIA Kidney stones Gout Hypothyroidism Hypertension Hyperlipidemia History of atrial fibrillation History of DJD Small right-sided pleural effusion Plan: Plan dated 05/23/2018 I will discuss the condition with the family. Prognosis remains very guarded giving her methotrexate and medical problems. Chest x-ray shows diffuse bilateral infiltrates consistent with either fluid overload and/or MRSA pneumonia. She remains BiPAP dependent which is not a good sign. Labs and x- rays are reviewed. Medications are reviewed. Zosyn and Levaquin is discontinued as cultures are only positive for methicillin-resistant staph aureus. The patient remains on vancomycin. Med list is evaluated and unnecessary medications are discontinued. Critical care time 36 minutes Plan dated 05/24/2018 The patient's situation remains about the same. The patient remains on vancomycin for methicillin-resistant staph aureus pneumonia. No chest x-ray was done today. It will be done tomorrow. She is a DO NOT RESUSCITATE. Would not want to be reintubated. I clarified that again yesterday with the family. I also talked to the patient about a today and she would not want to be reintubated. She is currently getting just a bit basic IV of saline at KVO. Chest x-ray was last done yesterday. Labs and x-rays are otherwise reviewed. White count 21.1. Hemoglobin 10.5. Hematocrit 33.2. The rest of the labs are reviewed. Critical care time 34 minutes Time with Patient: Greater than 30
[2018-05-24] MEDS ORDERED: VANCOMYCIN TROUGH DUE 1 EACH MISC MISCELLANE ONE (09:00)
[2018-05-24] MEDS: VANCOMYCIN 1,750 MG in SODIUM CHLORIDE 0.9% 500 ML IVPB SCH (10:39)
--- NOTE | 2018-05-24 11:26 | P.PN ---
Subjective Patient continues to be in the intensive care unit. On nasal cannula tolerating it well. Patient is awake and alert and orientated Objective - Vital Signs Vital signs: Vital Signs Temp 98.2 F 05/24/18 08:00 Pulse 80 05/24/18 11:13 Resp 26 H 05/24/18 09:00 BP 129/55 05/24/18 09:00 Pulse Ox 93 L 05/24/18 09:00 Intake & Output 05/23/18 05/24/18 05/24/18 18:59 06:59 18:59 Intake Total 801 960 560 Output Total 1830 1360 350 Balance -1029 -400 210 Weight 110.8 kg 109.5 kg Intake: IV 741 460 60 Potassium Chloride 20 meq 200 In Water For Injection 1 100ml.bag @ 50 mls/hr IVPB Q2H NIRANJAN Rx#: [id number] Sodium Chloride 0.9% 1, 240 260 60 000 ml @ 10 mls/hr IV . Q24H NIRANJAN Rx#:[id number] Vancomycin 1,750 mg In 501 Sodium Chloride 0.9% 500 ml @ 167 mls/hr IVPB Q12H NIRANJAN Rx#:[id number] Oral 60 500 500 Output: Urine 1830 1360 350 Other: Voiding Method Indwelling Catheter Indwelling Catheter Indwelling Catheter ABP, PAP, CO, CI - Last Documented Arterial Blood Pressure - Constitutional General appearance: Present: morbidly obese - EENT Eyes: Present: PERRLA Ears: bilateral: normal - Neck Neck: Present: normal ROM - Respiratory Respiratory: bilateral: diminished, rhonchi - Cardiovascular Rhythm: regular Abnormal Heart Sounds: Present: systolic murmur - Gastrointestinal General gastrointestinal: Present: soft - Integumentary Integumentary: Present: normal - Neurologic Neurologic: Present: CNII-XII intact - Musculoskeletal Musculoskeletal: Present: gait normal - Psychiatric Psychiatric: Present: A&O x's 3, appropriate affect, intact judgment & insight - Labs CBC & Chem 7: 05/24/18 05:20 05/24/18 05:20 Labs: Abnormal Lab Results - Last 24 Hours (Table) 05/23/18 05/23/18 05/23/18 Range/Units 12:12 17:32 22:30 WBC (3.8-10.6) k/uL RBC (3.80-5.40) m/uL Hgb (11.4-16.0) gm/dL Hct (34.0-46.0) % Carbon Dioxide (22-30) mmol/L BUN (7-17) mg/dL Glucose (74-99) mg/dL POC Glucose (mg/dL) 155 H 142 H (75-99) mg/dL Magnesium 2.5 H (1.6-2.3) mg/dL 05/23/18 05/24/18 05/24/18 Range/Units 23:31 05:20 05:20 WBC 21.1 H (3.8-10.6) k/uL RBC 3.67 L (3.80-5.40) m/uL Hgb 10.5 L (11.4-16.0) gm/dL Hct 33.2 L (34.0-46.0) % Carbon Dioxide 38 H (22-30) mmol/L BUN 57 H (7-17) mg/dL Glucose 159 H (74-99) mg/dL POC Glucose (mg/dL) 171 H (75-99) mg/dL Magnesium 2.5 H (1.6-2.3) mg/dL 05/24/18 Range/Units 06:37 WBC (3.8-10.6) k/uL RBC (3.80-5.40) m/uL Hgb (11.4-16.0) gm/dL Hct (34.0-46.0) % Carbon Dioxide (22-30) mmol/L BUN (7-17) mg/dL Glucose (74-99) mg/dL POC Glucose (mg/dL) 161 H (75-99) mg/dL Magnesium (1.6-2.3) mg/dL Microbiology - Last 24 Hours (Table) 05/18/18 06:59 Blood Culture - Final Blood No Growth after 144 hours 05/18/18 20:50 Gram Stain - Final Sputum Sputum Culture - Final Methicillin resist S. aureus 05/19/18 11:15 Gram Stain - Final Bronchial Washings - Right Bronchial Washings Culture - Final Methicillin resist S. aureus - Imaging and Cardiology Chest x-ray: report reviewed Assessment and Plan Plan: Assessment Acute hypoxic respiratory failure multi-factorial of bilateral lower lobe pneumonia congestive heart failure Patient was intubated on BiPAP now 2 nasal cannula Acute pulmonary arrest Sepsis secondary to pneumonia Obstructive sleep apnea on BiPAP at home Morbid obesity BMI 44.9 Acute on chronic congestive heart failure with systolic dysfunction as well as valvular heart disease History of right diaphragmatic plication History of TIA Osteoarthritis Hypothyroidism Atrial fibrillation paroxysma hypotension Post bronchoscopy positive MRSA Plan No code no CPR per family wishes and patient Continue consultation with pulmonology and cardiology Patient continues on vancomycin
[2018-05-24 12:10] LABS: Glucose,Whole Blood 145 mg/dL (75-99)
[2018-05-24] MEDS: SODIUM CHLORIDE 0.9% 1,000 ML IV SCH (12:15)
[2018-05-24 17:04] LABS: Glucose,Whole Blood 159 mg/dL (75-99)
[2018-05-24 20:28] LABS: Glucose,Whole Blood 212 mg/dL (75-99)
[2018-05-24] MEDS: VANCOMYCIN 1,500 MG in SODIUM CHLORIDE 0.9% 250 ML IVPB SCH (20:38)
[2018-05-24 22:27] LABS: Magnesium 2.2 mg/dL (1.6-2.3); Potassium 3.4 mmol/L (3.5-5.1)
[2018-05-24] MEDS: POTASSIUM BICARBONATE/CIT AC 20 MEQ TABLET.EFF NG-TUBE SCH ×2 (22:48→23:09)
[2018-05-24] MEDS: HYDROmorphone 2 MG TAB PO PRN (23:08)
[2018-05-25 04:43] LABS: Anion Gap 4 mmol/L; Blood Urea Nitrogen 53 mg/dL (7-17); Calcium 8.7 mg/dL (8.4-10.2); Carbon Dioxide 34 mmol/L (22-30); Chloride 102 mmol/L (98-107); Glucose 165 mg/dL (74-99); Magnesium 2.2 mg/dL (1.6-2.3); Phosphorus 3.2 mg/dL (2.5-4.5); Potassium 3.9 mmol/L (3.5-5.1); Sodium 140 mmol/L (137-145)
[2018-05-25 05:23] LABS: Basophils % (A) 0 %; Eosinophils % (A) 0 %; HCT 34.2 % (34.0-46.0); HGB 10.6 gm/dL (11.4-16.0); Hypochromasia Slight; Lymphocytes # (A) 0.3 k/uL (1.0-4.8); Lymphocytes % (A) 2 %; MCH 27.9 pg (25.0-35.0); MCHC 31.1 g/dL (31.0-37.0); MCV 89.9 fL (80.0-100.0); Mean Platelet Volume 7.5; Monocytes # (A) 0.8 k/uL (0-1.0); Monocytes % (A) 4 %; Neutrophils # (A) 19.8 k/uL (1.3-7.7); Neutrophils % (A) 94 %; Platelet Count 145 k/uL (150-450); RBC 3.81 m/uL (3.80-5.40); RDW 15.5 % (11.5-15.5); WBC 21.2 k/uL (3.8-10.6)
[2018-05-25] MEDS ORDERED: POTASSIUM BICARBONATE/CIT AC 20 MEQ TABLET.EFF NG-TUBE SCH (06:00)
[2018-05-25] MEDS: methylPREDNISolone SOD SUCCI 125 MG/2 ML VIAL IV SCH (06:01)
[2018-05-25] MEDS: LEVOTHYROXINE 50 MCG TAB PO SCH (06:02)
[2018-05-25 07:23] LABS: Glucose,Whole Blood 172 mg/dL (75-99)
[2018-05-25] MEDS: IPRATROPIUM-ALBUTEROL 3 ML NEB INHALATION SCH ×4 (07:49→19:01)
--- NOTE | 2018-05-25 07:53 | PN ---
PROGRESS NOTE Mrs. Tuttle is a 77-year-old female who presented with respiratory failure, was found to have pneumonia, was intubated and at this time she is extubated. She is on the high- flow oxygen. She is feeling well, feeling stronger. Yesterday she went back in atrial fibrillation. She denies any chest pain. No dizziness. She denies any nausea. Overall she feels stronger. She was diagnosed with MRSA. Her medications include amiodarone 400 mg twice a day and diltiazem 30 mg 3 times a day, furosemide 40 mg orally twice a day, methylprednisolone, vancomycin. PHYSICAL EXAMINATION: Blood pressure 123/60 with the heart rate in 70s. LUNGS: With decreased air exchange in the right base. HEART: Irregular, irregular S1, S2. No S3 with systolic murmur, ejection type. No diastolic murmur. ABDOMEN: Soft, obese, nontender. EXTREMITIES: No edema. LAB DATA: Lab data revealed BUN and creatinine 53 and 0.7, potassium 3.9, hemoglobin of 10.6, white blood cell of 21.2. IMPRESSION: 1. Respiratory failure with methicillin-resistant Staphylococcus aureus and pneumonia. 2. Atrial fibrillation, paroxysmal. She is back in atrial fibrillation with controlled ventricular response, not anticoagulated at this time because of hemoptysis. 3. Right pleural effusion. 4. History of hypertrophic cardiomyopathy. RECOMMENDATION: From the cardiac standpoint, we will await the input of Dr. Barnhart regarding restarting anticoagulation. In regard to her pleural effusion, she may benefit from thoracentesis. We will continue on the amiodarone dose at this time and depending on her rate and rhythm, further recommendation will be made. MMODL / IJN: [id number] /
[2018-05-25] MEDS: PANTOPRAZOLE 40 MG/10 ML VIAL IVP SCH (08:03)
[2018-05-25] MEDS: INSULIN ASPART 100 UNIT/ML 1 ML 10 ML VIAL SQ SCH ×4 (08:08→20:50)
--- NOTE | 2018-05-25 08:08 | XR ---
EXAMINATION TYPE: XR chest 1V DATE OF EXAM: 05/25/2018 COMPARISON: 05/23/2018 HISTORY: 77-year-old female follow-up pneumonia TECHNIQUE: Single frontal view of the chest is obtained. FINDINGS: Left subclavian CVC tip at the mid SVC. Right heart margin remains obscured by adjacent pleural paren chymal disease. Overall interstitial and patchy airspace opacities show some improvement from prior. Continued extensive opacity right mid and lower lung and continued small left pleural effusion with l eft basilar retrocardiac opacity. IMPRESSION: 1. Findings suggest improving CHF and pulmonary edema now with residual pulmonary vascular congestion . 2. Continued extensive opacity right mid and lower lung in part secondary to an elevated right hemidi aphragm. 3. Underlying small to moderate pleural effusions with prominent adjacent lower lobe atelectasis and/ or consolidation.
[2018-05-25] MEDS: DILTIAZEM ORAL 30 MG TAB PO SCH ×3 (08:09→21:48)
[2018-05-25] MEDS: AMIODARONE 200 MG TAB PO SCH ×2 (08:09→20:28)
[2018-05-25] MEDS: VANCOMYCIN 1,500 MG in SODIUM CHLORIDE 0.9% 250 ML IVPB SCH ×2 (08:10→20:29)
[2018-05-25] MEDS: FUROSEMIDE 10 MG/ML 4 ML VIAL IV SCH ×2 (08:11→16:51)
--- NOTE | 2018-05-25 09:44 | P.PN ---
Subjective Progress Note Date: 05/25/18 Principal diagnosis: Acute hypoxemic respiratory failure secondary to bilateral lower lobe pneumonia , and congestive heart failure A 77-year-old morbidly obese female patient with known history of obstructive sleep apnea maintained on BiPAP therapy on outpatient basis and addition to chronic bronchial asthma and significant limitation in exercise capacity secondary to her age body habitus and comorbidities, presented to the hospital because of an acute respiratory failure. I interviewed the daughter. Apparently the patient was at [employer] studies and she was getting progressively more short of breath. After arriving home she did [id number] breathing treatments without much relief. Ultimately she called her daughter who arrived to the scene and she saw that her mother was having more chest congestion, respirator distress, wheezing, and she was headed into respiratory failure. EMS was called to the scene. Upon arrival of EMS, the patient's pulse ox was in the low 70s pH was placed on on the percent nonrebreather facemask as she remained hypoxic and following that the patient was placed on BiPAP. The patient was moved to the emergency department. The patient was seen immediately after she arrived the ED. She was hypoxic, and she was cold and clammy and salmon color and cyanotic. As we were getting ready to intubate the patient, the patient lost pulse briefly and she became bradycardic. She went to the [facility]. She received a dose of epinephrine. She was started on CPR. Within 1 minute she recovered her pulse and the blood pressure. She was intubated and placed on a mechanical ventilator. She currently has a 7.[address] She is an assist-control mode of ventilation at the rate of 26, tidal volume of 400, FiO2 of 100% and a PEEP of 5. Immediately postintubation the blood pressure improved and she had a systolic above 200. She was started on propofol for sedation and her current systolic blood pressure in the 150s. A Poe catheter was inserted. The peak pressures in the 38-40 range. Static pressures around 32. The patient has significant bronchospasm and wheezing. A chest x-ray was done post intubation and post line placement and the chest x- ray showed no evidence of any pneumothorax. Bilateral air space disease was present in the perihilar regions in the lower lobes bilaterally right more than left. ET tube and NG tube were in good location. The patient also had a left subclavian triple-lumen catheter that was inserted without any complications. She was started on IV Zosyn knowing that the patient also briefly aspirated and vomited at the time of the intubation. Labs showed a white cell count of 22. The postintubation blood gas showed a pH of 7.21 with a pCO2 of 63 and pO2 of 88 and this blood gases on 100% FiO2. Initial lactic acid level was at 5.9 On today's evaluation of 05/12/2018 I'm seeing this patient for a follow-up. The patient remains intubated on a mechanical ventilator. Sedated with Diprivan at 30 mics per KG per minute. She is well sedated and she is synchronous with the mechanical ventilator. She is an assist-control mode of ventilation at the rate of 26 with a tidal volume of 400 and FiO2 of 60% with a PEEP of 5. The patient's chest x-ray from today is showing some mild improvement examination of the right midlung field. Otherwise the rest of the signs are all stable. ET tube is in a good location. The patient has consolidation of the right lung involving the right apex and the right lung base. There is also some perihilar pulmonary infiltrates bilaterally addition to some cardiomegaly. There is chronic elevation of the right hemidiaphragm. The blood gases from today showed a pH of 7.33 with a pCO2 of 47 and pO2 of 77 and it wasn't an FiO2 of 60%. The lactic acid level is down to 1.9 from 2.9 in addition. The patient was given briefly a sedation holiday and she was able to follow commands, simple commands and following that the patient was placed back on sedation. She did not require any pressors and the patient is maintaining home blood pressure. She was seen by cardiology today. Echocardiogram was done. The echo showed normal LV function with hypertensive heart disease and evidence of severe mitral stenosis with a mean gradient across the mitral valve of 20 mmHg as well as moderate to severe aortic stenosis with a mean gradient across the valve of 30 mmHg. The patient's cardiac rhythm is still sinus. She remains on broad-spectrum antibiotic coverage with a combination of Zosyn and Levaquin. The sputum cultures still negative for now. Blood cultures have been sent and the results are still negative for now. White cell count is elevated at 22.3. The patient was started on Lasix by cardiology 40 mg IV every 24 hours. She is also normal state rate of 40 mL an hour for now. On today's evaluation of 05/13/2018, the patient remains intubated on a mechanical ventilator. She is lightly sedated and the patient can easily aroused from propofol infusion. She remains on a mechanical ventilator the same vent setting. The blood gas from today, while on the 50% FiO2 showed a pH of 7.39 with a pCO2 of 40 and a pO2 of 81. White cell count is down to 17. The chest x-ray from today is showing persistent bilateral pulmonary infiltrates most on the right upper lobe and the right lower lobe. There is also small bilateral pleural effusion and cardiomegaly. ET tube remains in a good location. Cultures of been all negative thus far. The patient is afebrile and the patient is hemodynamically stable. Also, echocardiogram showed moderate to severe mitral stenosis and aortic valve stenosis and the patient was started on diuresis yesterday. I think we need to diurese this patient more aggressively over the next 24 hours. She'll feeds are running and the patient is tolerating her tube feeds without any major difficulties. Patient is producing adequate amount of urine output. Cardiac rhythm remains sinus. No other significant events over the past 24 hours. On 05/14/2089 seeing this patient for a follow-up. The patient remains intubated on a mechanical ventilator. She is on gentle sedation and she can easily aroused from her sedation and she can follow commands and answer questions appropriately. Her chest x-ray from today is showing some improvement in the aeration of the right lung. The patient has developed a consolidation and effusion the right lung base. The upper lobes are more clear. ET tube is in a good location. She remains on a mechanical ventilator. Assist-control mode of ventilation. She has a rate of 26, tidal volume of 400 , FiO2 is still at 60% with a PEEP of 5. Her blood gases from today showed a pH of 7.39 , pCO2 of 49 and pO2 of 81. I doubt the FiO2 down to 50%. I asked the nursing staff to stop the sedation completely and we checked her weaning parameters and the weaning parameters showed a NIF of -35 and vital Of 935 and the rapid shallow breathing index was less than 100. Based on that, the patient was given a spelled his breathing trial. She lasted for a total of 30 minutes. Following that she became tachycardic and cachectic. Blood gases obtained and the patient had a pH of 7.48 with a pCO2 of 48 and pO2 of 78. Nevertheless, based on ongoing shortness of breath, we decided not to extubate the patient knowing that she was not quite ready for extubation. Noted over the past 24 hours to monitor the patient has significant cardiac events. The patient went into an SVT. She was a rapid ventricular response. She had to be cardioverted. Subsequently she went into atrial fibrillation/flutter rhythm. Her rate is controlled for now. Nevertheless the patient is on Cardizem 30 mg by mouth 3 times a day. She was also placed on IV heparin by cardiology. As mentioned earlier she has valvular heart disease with severe mitral regurgitation stenosis. The diuretics have been cut down to 40 g IV Lasix every 12 hours. The net fluid balance is -2 L for yesterday. No fever. No chills. White cell count is down to 12.6. On 05/15/2018, patient is being seen in follow-up. He remains on a mechanical ventilator. Still on the same vent setting within assist-control mode at the rate of 26 with an FiO2 of 50% with a tidal volume of 400 and a PEEP of 5. The blood gas showed a pH of 7.45 with a pCO2 of 51 and pO2 of 91. No major improvement of the chest x-ray finding and the patient continues to have significant amount of bilateral airspace disease and bilateral pleural effusion more so on the right. The patient is in a controlled rhythm with atrial fibrillation. The patient is diuresing gently with IV Lasix. Unable to do aggressively diurese this patient because of evolving hypotension. The patient has severe mitral stenosis and approximately 2 fibrillation. The patient is also on broad-spectrum antibiotic coverage. She was given a sedation holiday and this point is breathing trial which she was able to tolerate for quite some time and following that she became short of breath and tachycardic and tachypneic and based on that the child was discontinued and the patient was not extubated. She is in a negative fluid balance. The net fluid balance for yesterday was -1.6 L. We are still diuresing this patient and she has a good urine output. She is afebrile. She is tolerating her tube feeds. She is very easily arousable and currently she is sedated with Diprivan. Overall no major changes and conditions compared to yesterday. I'm going to proceed with a CAT scan of the chest to characterized the pulmonary abnormalities. At the same time the patient was started on anticoagulation with warfarin. On 05/16/2018, patient was evaluated, and she remains on mechanical ventilation. Her ventilator settings are assist control rate of 26, tidal volume of 400, FiO2 of 50%, and PEEP of 5. ABG showed a pO2 of 78 pCO2 of 51 pH of 7.48. Patient is awake, responsive to all verbal commands, follows all instructions, hence I took her off propofol, and recommended a spontaneous breathing trial. Placed on pressure support of 10 with CPAP, however she only lasted about 20 minutes and she was noted to have increased respiratory rate, tachycardia, and she was developing a bit of respiratory distress. Hence the patient was switched back to assist control mode of mechanical ventilation. And I felt that she is not ready to be weaned. Ultrasound of the chest was done, there was evidence of less than 5 cm pocket of fluid on the right pleural space, hence I did not feel the patient would benefit much from thoracentesis, not to mention that is associated with thoracentesis considering the amount of fluid is small. All labs were reviewed, her renal profile seems to be relatively normal however her BUN is 53 creatinine is 0.70, more of a prerenal type of azothemia. CBC is relatively normal with minimal leukocytosis. Heparin is therapeutic for her atrial fibrillation. Hemodynamically, the patient is stable , and not requiring any norepinephrine at this point. Propofol is presently on hold. Nutrition is also address, and the patient is being fed with nasogastric tube/enteral feeding. Fluid balance noted over the last 24 hours to be about 90 mL positive. Hence the Lasix dose was increased to twice a day. On 05/17/2018, patient remains on mechanical ventilation, ventilator settings at present are tidal volume of 400, assist control rate of 16 FiO2 of 50% and PEEP of 5. ABG showed a pO2 of 134 pCO2 of 37 pH of 7.62. Patient is not breathing beyond the ventilator settings, hence I cut down her rate from 20-16. And I felt that the patient has significant metabolic alkalosis, but probably this patient's baseline pCO2 is normally in the 50s or 60s to begin with. So the alkalosis were noting is metabolic and respiratory in nature or alkalosis post correction of respiratory acidosis. At any rate we'll continue diuretics, her chest x-ray continues to show bilateral pleural effusion especially on the right side, but the ultrasound did not show enough fluid to safely perform a thoracentesis the pocket was less than 5 cm. Fluid balance is negative about 1258 in the last 24 hours. Urine output remains excellent. Renal functioning is about the same with a BUN of 53 creatinine of 0.70. Patient was placed on amiodarone by cardiology, and she is on heparin for atrial fibrillation. WBC count is 15.8 hemoglobin is 12.5. Patient is on 50 g of propofol, but she is awake, following all instructions, and I suggested that we discontinue propofol , wake of the patient, and given a trial of pressure support of 10 and CPAP. If tolerated we could potentially consider extubating the patient to BiPAP. If not tolerated a sugar go back on assist control mode of mechanical ventilation, higher dose of propofol to sedate her a bit more, and wait for another day to address weaning all over again. Patient was reevaluated today on 05/18/2018, remains on mechanical ventilation, ventilator settings are about the same, unchanged from yesterday. ABG showed a pO2 of 99 pCO2 of 49 pH of 7.51. Potassium is a bit low being corrected as per protocol. BUN remains 52 creatinine 0.66, patient remains on diuretics, repeat ultrasound of the chest continues to show very small tiny right-sided pleural effusion. Not large enough to consider thoracentesis. Chest x-ray is suggestive of central vascular congestion with right basilar consolidation, and small pleural effusion. Patient was taken off propofol, kept on assist control mode of mechanical ventilation, however she was noted to be extremely agitated and restless and tachypneic as well as tachycardic. Hence placed back on propofol, and clearly she is not amenable at this point. Discussed her condition with family at bedside, and we felt at this point patient may be ready for tracheostomy and PEG tube placement. She is going to be extremely difficult to wean. Radius attempts to wean the patient have failed and the patient has been now on mechanical ventilation for 8 days. Remains on the same medications, diuretics, amiodarone, DuoNeb updrafts, remains on antibiotics in the form of Levaquin and Zosyn. Cultures have been nondiagnostic, more sputum cultures were sent today. Nutrition-hassan the patient is receiving enteral feeding. She remains also on GI and DVT prophylaxis. Patient was reevaluated today on 05/19/2018, remains on mechanical ventilation, assist control mode of mechanical ventilation, FiO2 is now to 40%, assist control rate of 16, volume is 400, and PEEP is 5. ABG was noted, patient was given a trial of weaning, and even on assist control mode of mechanical ventilation, patient was breathing basically up in the high 20s and low 30s. As we went to pressure support and CPAP, patient looked extremely tachypnea, she was getting a bit tachycardic, and noted to show some signs of respiratory distress. Hence I updated the family on her condition, and suggested bronchoscopy and evaluation of the right lower lobe. This was done, and the fluid from the right lower lobe was sent for different diagnostic studies. Discussed with the family again plans for tracheostomy and PEG tube placement, apparently they discuss this with her when she was awakened off propofol, and they are all now in agreement that the patient would not have wanted this to begin with. So having said that, I believe were to try to proceed with daily weaning trials, and once we have a window of weaning, we will wean and extubate , and probably not to reintubate. Even if the patient fails and that will be further discussed again on again with the family and with the patient. They seem to be inclined to not consider trach and PEG, but will be willing to proceed with weaning and extubation and not to reintubate at that time we think it is best to extubate. White count is high today 32.3. Her ABG showed a pO2 of 96 pCO2 of 53 pH of 7.53. Basic metabolic profile is relatively normal, bicarb is 39 BUN is 47 creatinine is 0.6. Chest x-ray showed no major change, there is evidence of small pleural effusion, right lower lobe consolidation, and bibasilar airspace disease. Slight cardiac enlargement noted. Right diaphragm is elevated. Patient was reevaluated today on 05/20/2018, remains on mechanical ventilation, basically on the same ventilator settings, have not been changed. ABG showed a pO2 of 81 pCO2 of 56 pH of 7.51. Gram stain from the bronchial culture is showing many gram-positive cocci in clusters, hence I went ahead and added vancomycin to her present course of antibiotics empirically until the final culture is available. Family is all in the room today, and they basically have made a decision to extubate the patient to a noninvasive positive pressure ventilation, and if the patient does well, had to be great, if she doesn't do well, they will likely proceed with comfort care measures. This is all decided upon by all her family members and the patient herself. Hence the patient was taken off sedation, placed on pressure support mode of mechanical ventilation with a pressure support of 16, we have discontinued her propofol, discontinued all her sedation, and once the patient was awake, and responsive following instructions, she was switched to pressure support of 16 and CPAP. She seems to be doing well, in the meantime I have recommended diuretics since her chest x -ray was showing slight worsening she was given a dose of Lasix, and a dose of Diamox. Family is all in agreement to proceed with extubation, and again if not tolerated to proceed with comfort care measures. In the meantime the patient is DO NOT RESUSCITATE CODE STATUS. [place] [address], hemoglobin is 11, asymmetric metabolic profile was reviewed, bicarb is 43 BUN is 52 creatinine is 0.55. Patient was reevaluated today on 05/21/2018, continues to tolerate the extubation relatively well, she does while on BiPAP, and she doesn't do great on high flow nasal cannula or air vo2. Today we received the final report on the bronchial washing, and sure enough the patient doesn't have MRSA in the bronchial washing, and she has been already on vancomycin since yesterday. We will continue the vancomycin. Chest x-ray is showing some improvement today on the left side, but continues to have a significant amount of consolidation in the right lower lobe area. White cell count is coming down to 19.2 , hemoglobin is 11.0, PTT is 62.7, however the patient is having some bloody sputum, and small amount of hemoptysis, hence I would recommend stopping Coumadin and heparin today for sure. Reevaluated today on 05/22/2018, patient remains off mechanical ventilation, presently on BiPAP, tolerating BiPAP quite well. Patient did not do well with high flow nasal cannula but she is able to use it when she eats. Chest x-ray is showing some worsening hence I recommended more diuretics in the form of Lasix and Diamox. Her WBC count today is up to 28.5, hemoglobin is 11.6. Basic metabolic profile is normal bicarb is 39 however, BUN is 55 creatinine 0.70. Chest x-ray showed continuing bilateral alveolar airspace disease and small bilateral effusions mostly on the right side. But previous ultrasound did not reveal enough fluid to safely perform thoracentesis. Bronchial washing has been positive for MRSA, cytology from the bronchial washing has been negative for malignancy. Patient is still now on vancomycin, Zosyn, and Levaquin. Continues to have intermittent episodes of hemoptysis, Coumadin and heparin remain on hold. Progress note dated 05/23/2018 This is a DO NOT RESUSCITATE patient who is 77 years of age. She was admitted way back on May 11 for respiratory failure. She was intubated on May 11 and finally extubated on the . She had bronchoscopy on the which apparently revealed methicillin-resistant staph aureus. Since extubation on the , she has been BiPAP dependent with settings of IPAP 16 EPAP 8 and an FiO2 50%. He is getting a saline IV just at KVO. As mentioned above, she is a DO NOT RESUSCITATE. She's been seen by my partners over the last number of days. The chest x-ray shows significant bilateral alveolar airspace disease with small effusions. None pleural effusion to do a thoracentesis on. Bronchial washings were positive for MRSA. Cytology has been negative. The patient remains on good antibiotic coverage. Overall, her prognosis remains poor. Her previous health was not very good. I'm glad that she has chosen to be a DO NOT RESUSCITATE and not to be reintubated. I think that is appropriate. Chest x-ray shows bilateral diffuse infiltrates. White count 15.2 hemoglobin 10 hematocrit 31.6 platelet count 149,000. Sodium potassium chloride normal CO2 40 be any crab were 54 and 0.93 bronchoscopy washings and sputum show evidence of methicillin resistant staph aureus. Medications are reviewed. Progress note dated 05/24/2018 The patient is again seen today. Currently she is a DO NOT RESUSCITATE. She spends half her time on BiPAP with settings of 16 IPAP and EPAP and 35% and the other time on AIRVO. Her IV is a saline IV at KVO. The patient did not have a chest x-ray today. The patient's last chest x-ray was done yesterday. I had a long talk with the family yesterday. The patient's bronchoscopy on the of this month showed epicillin resistant staph aureus. Chest x-ray shows diffuse bilateral infiltrates. We will get a chest x-ray tomorrow. The patient would not want to be reintubated again. She was very clear about that. The patient appears to be much more alert today. Still having some difficulty breathing. Not coughing very much. Not producing any phlegm. White count 21.1 hemoglobin 10.5 hematocrit 33.2 and platelet count 158,000. Sodium potassium chloride all normal. CO2 38. BUN and creatinine were 57 and 0.8. On 05/25/2018 patient seen again in follow-up in the intensive care unit. She remains on AIRVO at a flow of 45 L/m, and FiO2 of 60%, she is wearing her BiPAP at night at settings of 16/8, and 45% FiO2. Her maintenance IV is 0.9 normal saline at a rate of 20 ML per hour. She is awake, and alert, oriented 3, no focal neurological deficits. She is afebrile, hemodynamically stable. Today's chest x-ray has been reviewed by Dr. Barnhart, and findings are consistent of improving CHF and pulmonary edema with residual pulmonary vascular congestion, there is extensive opacity in the right mid and lower lung secondary to elevated right hemidiaphragm, and underlying [id number] pleural effusion with prominent adjacent lower lobe atelectasis and/or consolidation. For that reason patient needs aggressive pulmonary toileting, she needs percussion and vibration, incentive spirometry use. Bronchial wash cultures showed MRSA, and patient is being treated with IV vancomycin. She is on IV diuretics, 40 mg twice daily, she is in negative 7:30 ML fluid balance over the last 24 hours, there has been significant improvement in the appearance of bilateral lower extremity edema. Lung sounds are diminished, with coarse bilateral rhonchi and crackles, no wheezes. Today's labs were reviewed, WBC remains elevated at 21.2 , hemoglobin is 10.6, renal profile is stable, BUN 53, creatinine 0.7, electrolytes are within normal limits, with the exception of CO2 which is at 34. Patient remains on Diamox for metabolic alkalosis. No fever no chills, no worsening dyspnea. Only occasional cough, nonproductive. Objective - Vital Signs Vital signs: Vital Signs Temp 97.5 F L 05/25/18 08:00 Pulse 87 05/25/18 09:00 Resp 34 H 05/25/18 09:00 BP 119/74 05/25/18 09:00 Pulse Ox 97 05/25/18 09:00 Intake & Output 05/24/18 05/25/18 05/25/18 18:59 06:59 18:59 Intake Total 1370 1010 290 Output Total 1850 1260 360 Balance -480 -250 -70 Weight 109.5 kg 110.8 kg Intake: IV 220 510 290 Sodium Chloride 0.9% 1, 220 260 40 000 ml @ 10 mls/hr IV . Q24H NIRANJAN Rx#:[id number] Vancomycin 1,500 mg In 250 250 Sodium Chloride 0.9% 250 ml @ 125 mls/hr IVPB Q12HR NIRANJAN Rx#:[id number] Oral 1150 500 Output: Urine 1850 1260 360 Other: Voiding Method Indwelling Catheter Indwelling Catheter # Bowel Movements 1 ABP, PAP, CO, CI - Last Documented Arterial Blood Pressure - Exam No acute distress, Nasal O2 in place. Patient appears much more alert today than yesterday. HEENT examination is grossly unremarkable. Mucous membranes are moist. Neck supple. Full range of motion. No adenopathy thyromegaly or neck vein distention. Cardiovascular examination reveals regular rhythm rate. S1-S2 normal. No S3 or S4. A loud systolic murmur of aortic stenosis is noted.. Lungs reveal severely diminished breath sounds throughout. There is coarse bilateral rhonchi and crackles. No wheezes. Breath sounds are equal bilaterally. Abdomen soft. Bowel sounds are not noted. No masses or tenderness. Extremities are intact. No cyanosis clubbing or edema. Skin is without rash or lesion. Neurologic examination is brief but nonfocal. - Labs CBC & Chem 7: 05/25/18 04:12 05/25/18 04:12 Labs: Abnormal Lab Results - Last 24 Hours (Table) 05/24/18 05/24/18 05/24/18 Range/Units 12:07 17:03 20:26 WBC (3.8-10.6) k/uL Hgb (11.4-16.0) gm/dL Plt Count (150-450) k/uL Neutrophils # (1.3-7.7) k/uL Lymphocytes # (1.0-4.8) k/uL Potassium (3.5-5.1) mmol/L Carbon Dioxide (22-30) mmol/L BUN (7-17) mg/dL POC Glucose (mg/dL) 145 H 159 H 212 H (75-99) mg/dL Glucose (74-99) mg/dL 05/24/18 05/25/18 05/25/18 Range/Units 22:00 04:12 04:12 WBC 21.2 H (3.8-10.6) k/uL Hgb 10.6 L (11.4-16.0) gm/dL Plt Count 145 L (150-450) k/uL Neutrophils # 19.8 H (1.3-7.7) k/uL Lymphocytes # 0.3 L (1.0-4.8) k/uL Potassium 3.4 L (3.5-5.1) mmol/L Carbon Dioxide 34 H (22-30) mmol/L BUN 53 H (7-17) mg/dL POC Glucose (mg/dL) (75-99) mg/dL Glucose 165 H (74-99) mg/dL 05/25/18 Range/Units 07:20 WBC (3.8-10.6) k/uL Hgb (11.4-16.0) gm/dL Plt Count (150-450) k/uL Neutrophils # (1.3-7.7) k/uL Lymphocytes # (1.0-4.8) k/uL Potassium (3.5-5.1) mmol/L Carbon Dioxide (22-30) mmol/L BUN (7-17) mg/dL POC Glucose (mg/dL) 172 H (75-99) mg/dL Glucose (74-99) mg/dL Microbiology - Last 24 Hours (Table) 05/18/18 06:59 Blood Culture - Final Blood No Growth after 144 hours Assessment and Plan Plan: Assessment: Acute hypoxemic respiratory failure secondary to bilateral diffuse infiltrates, which may relate to pneumonia and/or fluid overload. MRSA pneumonia Status post intubation on May 11 and subsequent extubation on May 20 for respiratory failure Acute cardiopulmonary arrest. Lactic acidemia, resolved Morbid obesity Sleep apnea History of asthma Previous history of right diaphragm plication Moderate to severe aortic stenosis History of TIA Kidney stones Gout Hypothyroidism Hypertension Hyperlipidemia History of atrial fibrillation History of DJD Small right-sided pleural effusion Plan: Continue IV diuresis, continue IV Diamox, today's chest x-ray shows improving CHF and pulmonary edema, and extensive opacity in the right mid and lower lung secondary to pleural effusion and adjacent atelectasis. Patient needs aggressive pulmonary toileting, percussion and vibration, incentive spirometry use. Continue with current antibiotic coverage, continue nebulized bronchodilators. No significant wheezing, we will decrease the dose of Solu- Medrol to 40 mg every 8 hours. Continue GI and DVT prophylaxis, cardiology has inquired about patient being started on anticoagulation, we will checked with discharge planners whether the patient has coverage for Eliquis and Xarelto, and we will start the patient on one of those agents. We'll continue to closely follow I performed a history & physical examination of the patient and discussed their management with my nurse practitioner, Marianela Sparks. I reviewed the nurse practitioner's note and agree with the documented findings and plan of care. Lung sounds are diminished lung sounds, with scattered rhonchi and rales, no wheezing. The findings and the impression was discussed with the patient. I attest to the documentation by the nurse practitioner. Time with Patient: Greater than 30
[2018-05-25] MEDS: LACTULOSE 20 GM/30 ML CUP PO SCH ×3 (09:47→21:49)
--- NOTE | 2018-05-25 11:11 | P.PN ---
Subjective Patient continues in intensive care unit. Was returned to on BiPAP. Noted to have pleural effusion and continued heart failure. Patient awake and alert Objective - Vital Signs Vital signs: Vital Signs Temp 97.5 F L 05/25/18 08:00 Pulse 78 05/25/18 10:00 Resp 23 05/25/18 10:00 BP 119/52 05/25/18 10:00 Pulse Ox 97 05/25/18 10:00 Intake & Output 05/24/18 05/25/18 05/25/18 18:59 06:59 18:59 Intake Total 1370 1010 290 Output Total 1850 1260 785 Balance -480 -250 -495 Weight 109.5 kg 110.8 kg 110.8 kg Intake: IV 220 510 290 Sodium Chloride 0.9% 1, 220 260 40 000 ml @ 10 mls/hr IV . Q24H NIRANJAN Rx#:[id number] Vancomycin 1,500 mg In 250 250 Sodium Chloride 0.9% 250 ml @ 125 mls/hr IVPB Q12HR NIRANJAN Rx#:[id number] Oral 1150 500 Output: Urine 1850 1260 785 Other: Voiding Method Indwelling Catheter Indwelling Catheter Indwelling Catheter # Bowel Movements 1 ABP, PAP, CO, CI - Last Documented Arterial Blood Pressure - Constitutional General appearance: Present: obese - EENT Eyes: Present: PERRLA Ears: bilateral: normal - Neck Neck: Present: normal ROM - Respiratory Respiratory: bilateral: diminished, rhonchi - Cardiovascular Rhythm: regular Abnormal Heart Sounds: Present: systolic murmur - Gastrointestinal General gastrointestinal: Present: soft - Integumentary Integumentary: Present: normal - Neurologic Neurologic: Present: CNII-XII intact - Musculoskeletal Musculoskeletal: Present: generalized weakness - Psychiatric Psychiatric: Present: A&O x's 3, appropriate affect, intact judgment & insight - Labs CBC & Chem 7: 05/25/18 04:12 05/25/18 04:12 Labs: Abnormal Lab Results - Last 24 Hours (Table) 05/24/18 05/24/18 05/24/18 Range/Units 12:07 17:03 20:26 WBC (3.8-10.6) k/uL Hgb (11.4-16.0) gm/dL Plt Count (150-450) k/uL Neutrophils # (1.3-7.7) k/uL Lymphocytes # (1.0-4.8) k/uL Potassium (3.5-5.1) mmol/L Carbon Dioxide (22-30) mmol/L BUN (7-17) mg/dL POC Glucose (mg/dL) 145 H 159 H 212 H (75-99) mg/dL Glucose (74-99) mg/dL 05/24/18 05/25/18 05/25/18 Range/Units 22:00 04:12 04:12 WBC 21.2 H (3.8-10.6) k/uL Hgb 10.6 L (11.4-16.0) gm/dL Plt Count 145 L (150-450) k/uL Neutrophils # 19.8 H (1.3-7.7) k/uL Lymphocytes # 0.3 L (1.0-4.8) k/uL Potassium 3.4 L (3.5-5.1) mmol/L Carbon Dioxide 34 H (22-30) mmol/L BUN 53 H (7-17) mg/dL POC Glucose (mg/dL) (75-99) mg/dL Glucose 165 H (74-99) mg/dL 05/25/18 Range/Units 07:20 WBC (3.8-10.6) k/uL Hgb (11.4-16.0) gm/dL Plt Count (150-450) k/uL Neutrophils # (1.3-7.7) k/uL Lymphocytes # (1.0-4.8) k/uL Potassium (3.5-5.1) mmol/L Carbon Dioxide (22-30) mmol/L BUN (7-17) mg/dL POC Glucose (mg/dL) 172 H (75-99) mg/dL Glucose (74-99) mg/dL Microbiology - Last 24 Hours (Table) 05/18/18 06:59 Blood Culture - Final Blood No Growth after 144 hours - Imaging and Cardiology Chest x-ray: report reviewed Assessment and Plan Plan: Assessment Acute hypoxic respiratory failure multifactorial with bilateral lower pneumonia Patient has been extubated continues on BiPAP Post cardiac arrest Sepsis secondary to pneumonia History of sleep apnea on BiPAP at home Morbid obesity BMI 44.9 Acute on chronic congestive heart failure systolic dysfunction as well as valvular heart disease History of right hemidiaphragmatic plication History of TIA Osteoarthritis Hypothyroidism History of paroxysmal atrial fibrillation History of GERD Gout Post bronchoscopy positive MRSA Hypotension Pleural effusion Plan No code no CPR per family and patient's wishes Continue consultation with pulmonology and cardiology
[2018-05-25] MEDS: APIXABAN 5 MG TAB PO SCH ×2 (11:34→20:29)
[2018-05-25] MEDS: SODIUM CHLORIDE 0.9% 1,000 ML IV SCH (11:35)
[2018-05-25 12:00] LABS: Glucose,Whole Blood 145 mg/dL (75-99)
[2018-05-25] MEDS: methylPREDNISolone SOD SUCCI 40 MG/ML 1 ML VIAL IV SCH (16:50)
[2018-05-25 17:07] LABS: Glucose,Whole Blood 131 mg/dL (75-99)
[2018-05-25] MEDS ORDERED: Potassium Replacement Protocol 1 EACH MISC MISCELLANE PRN (19:24)
[2018-05-25] MEDS: POTASSIUM CHLORIDE 10 MEQ in WATER FOR INJECTION 1 100ML.BAG IVPB SCH ×2 (20:25→21:47)
[2018-05-25 20:48] LABS: Glucose,Whole Blood 210 mg/dL (75-99)
[2018-05-26] MEDS ORDERED: methylPREDNISolone SOD SUCCI 125 MG/2 ML VIAL ONE (00:20)
[2018-05-26 05:48] LABS: Anion Gap 3 mmol/L; Blood Urea Nitrogen 46 mg/dL (7-17); Calcium 8.5 mg/dL (8.4-10.2); Carbon Dioxide 36 mmol/L (22-30); Chloride 102 mmol/L (98-107); Glucose 160 mg/dL (74-99); Magnesium 2.2 mg/dL (1.6-2.3); Phosphorus 3.4 mg/dL (2.5-4.5); Potassium 4.1 mmol/L (3.5-5.1); Sodium 141 mmol/L (137-145)
[2018-05-26 06:50] LABS: Glucose,Whole Blood 164 mg/dL (75-99)
[2018-05-26] MEDS: IPRATROPIUM-ALBUTEROL 3 ML NEB INHALATION SCH ×4 (07:06→19:28)
[2018-05-26] MEDS: LEVOTHYROXINE 50 MCG TAB PO SCH (07:21)
[2018-05-26 07:26] LABS: Glucose,Whole Blood 146 mg/dL (75-99)
[2018-05-26] MEDS: methylPREDNISolone SOD SUCCI 40 MG/ML 1 ML VIAL IV SCH ×4 (07:36→23:45)
[2018-05-26 07:37] LABS: HCT 32.6 % (34.0-46.0); HGB 10.3 gm/dL (11.4-16.0); Hypochromasia Moderate; MCHC 31.6 g/dL (31.0-37.0); Mean Platelet Volume 7.7; Platelet Count 135 k/uL (150-450); RBC 3.55 m/uL (3.80-5.40); RDW 15.6 % (11.5-15.5); WBC 19.5 k/uL (3.8-10.6)
[2018-05-26] MEDS: INSULIN ASPART 100 UNIT/ML 1 ML 10 ML VIAL SQ SCH ×4 (08:13→20:12)
[2018-05-26] MEDS: PANTOPRAZOLE 40 MG/10 ML VIAL IVP SCH (08:13)
[2018-05-26] MEDS: FUROSEMIDE 10 MG/ML 4 ML VIAL IV SCH ×2 (08:13→17:08)
[2018-05-26] MEDS: AMIODARONE 200 MG TAB PO SCH ×2 (08:14→20:09)
[2018-05-26] MEDS: APIXABAN 5 MG TAB PO SCH ×2 (08:14→20:09)
[2018-05-26] MEDS: DILTIAZEM ORAL 30 MG TAB PO SCH ×3 (08:14→21:30)
--- NOTE | 2018-05-26 08:25 | P.PN ---
Subjective Progress Note Date: 05/26/18 Principal diagnosis: Respiratory failure Progress note dated 05/23/2018 This is a DO NOT RESUSCITATE patient who is 77 years of age. She was admitted way back on May 11 for respiratory failure. She was intubated on May 11 and finally extubated on the . She had bronchoscopy on the which apparently revealed methicillin-resistant staph aureus. Since extubation on the , she has been BiPAP dependent with settings of IPAP 16 EPAP 8 and an FiO2 50%. He is getting a saline IV just at KVO. As mentioned above, she is a DO NOT RESUSCITATE. She's been seen by my partners over the last number of days. The chest x-ray shows significant bilateral alveolar airspace disease with small effusions. None pleural effusion to do a thoracentesis on. Bronchial washings were positive for MRSA. Cytology has been negative. The patient remains on good antibiotic coverage. Overall, her prognosis remains poor. Her previous health was not very good. I'm glad that she has chosen to be a DO NOT RESUSCITATE and not to be reintubated. I think that is appropriate. Chest x-ray shows bilateral diffuse infiltrates. White count 15.2 hemoglobin 10 hematocrit 31.6 platelet count 149,000. Sodium potassium chloride normal CO2 40 be any crab were 54 and 0.93 bronchoscopy washings and sputum show evidence of methicillin resistant staph aureus. Medications are reviewed. Progress note dated 05/24/2018 The patient is again seen today. Currently she is a DO NOT RESUSCITATE. She spends half her time on BiPAP with settings of 16 IPAP and EPAP and 35% and the other time on AIRVO. Her IV is a saline IV at KVO. The patient did not have a chest x-ray today. The patient's last chest x-ray was done yesterday. I had a long talk with the family yesterday. The patient's bronchoscopy on the of this month showed epicillin resistant staph aureus. Chest x-ray shows diffuse bilateral infiltrates. We will get a chest x-ray tomorrow. The patient would not want to be reintubated again. She was very clear about that. The patient appears to be much more alert today. Still having some difficulty breathing. Not coughing very much. Not producing any phlegm. White count 21.1 hemoglobin 10.5 hematocrit 33.2 and platelet count 158,000. Sodium potassium chloride all normal. CO2 38. BUN and creatinine were 57 and 0.8. Progress note dated 05/26/2018 This is a 77-year-old female patient who is a DO NOT RESUSCITATE patient. The patient has a history of pneumonia. The patient is improving slowly. Chest x- ray from yesterday shows small right-sided pleural effusion and elevation of the right hemidiaphragm which is chronic. Also status post plication of the right diaphragm. This was done at [facility]. The bronchoscopy done by my partner on the of this month showed methicillin-resistant staph aureus. She's being treated for that. Chest x-ray showing bilateral infiltrates which has slowly improved. The patient spends half of her time on BiPAP and about half of her time using high flow oxygen therapy. As mentioned above, she does not want to be reintubated. White count is still high at 19.5 hemoglobin 10.3 hematocrit 32.6 platelet count is 135,000. Sodium potassium chloride normal CO2 36 anion gap 3, BUN and creatinine are 46 and 0.68. No chest x-ray today. Medications are reviewed. I been very honest and realistic with the patient. She understands that she may not make it. She does continue to work hard to try to improve. Objective - Vital Signs Vital signs: Vital Signs Temp 98 F 05/26/18 04:00 Pulse 83 05/26/18 08:00 Resp 22 05/26/18 08:00 BP 109/61 05/26/18 08:00 Pulse Ox 95 05/26/18 08:00 Intake & Output 05/25/18 05/26/18 05/26/18 18:59 06:59 18:59 Intake Total 350 570 Output Total 1885 930 Balance -1533 -983 Weight 110.8 kg 108.7 kg Intake: IV 350 570 Potassium Chloride 20 meq 200 In Water For Injection 1 100ml.bag @ 50 mls/hr IVPB Q2H NIRANJAN Rx#: [id number] Sodium Chloride 0.9% 1, 80 120 000 ml @ 10 mls/hr IV . Q24H [facility]ANJAN Rx#:[id number] Vancomycin 1,500 mg In 270 250 Sodium Chloride 0.9% 250 ml @ 125 mls/hr IVPB Q12HR [facility]ANJAN Rx#:[id number] Output: Urine 1885 930 Other: Voiding Method Indwelling Catheter Indwelling Catheter # Bowel Movements 1 ABP, PAP, CO, CI - Last Documented Arterial Blood Pressure 24/24 - Exam No acute distress, Nasal O2 in place. Patient appears much more alert today than yesterday. HEENT examination is grossly unremarkable. Mucous membranes are moist. Neck supple. Full range of motion. No adenopathy thyromegaly or neck vein distention. Cardiovascular examination reveals regular rhythm rate. S1-S2 normal. No S3 or S4. A loud systolic murmur of aortic stenosis is noted.. Lungs reveal severely diminished breath sounds throughout. There is coarse bilateral rhonchi and crackles. No wheezes. Breath sounds are equal bilaterally. Abdomen soft. Bowel sounds are not noted. No masses or tenderness. Extremities are intact. No cyanosis clubbing or edema. Skin is without rash or lesion. Neurologic examination is brief but nonfocal. - Labs CBC & Chem 7: 05/26/18 05:02 05/26/18 05:02 Labs: Abnormal Lab Results - Last 24 Hours (Table) 05/25/18 05/25/18 05/25/18 Range/Units 11:59 17:05 20:46 WBC (3.8-10.6) k/uL RBC (3.80-5.40) m/uL Hgb (11.4-16.0) gm/dL Hct (34.0-46.0) % RDW (11.5-15.5) % Plt Count (150-450) k/uL Carbon Dioxide (22-30) mmol/L BUN (7-17) mg/dL Glucose (74-99) mg/dL POC Glucose (mg/dL) 145 H 131 H 210 H (75-99) mg/dL 05/26/18 05/26/18 05/26/18 Range/Units 05:02 05:02 06:49 WBC 19.5 H (3.8-10.6) k/uL RBC 3.55 L (3.80-5.40) m/uL Hgb 10.3 L (11.4-16.0) gm/dL Hct 32.6 L (34.0-46.0) % RDW 15.6 H (11.5-15.5) % Plt Count 135 L (150-450) k/uL Carbon Dioxide 36 H (22-30) mmol/L BUN 46 H (7-17) mg/dL Glucose 160 H (74-99) mg/dL POC Glucose (mg/dL) 164 H (75-99) mg/dL 05/26/18 Range/Units 07:25 WBC (3.8-10.6) k/uL RBC (3.80-5.40) m/uL Hgb (11.4-16.0) gm/dL Hct (34.0-46.0) % RDW (11.5-15.5) % Plt Count (150-450) k/uL Carbon Dioxide (22-30) mmol/L BUN (7-17) mg/dL Glucose (74-99) mg/dL POC Glucose (mg/dL) 146 H (75-99) mg/dL Assessment and Plan Assessment: Assessment Acute hypoxemic respiratory failure secondary to bilateral diffuse infiltrates, which may relate to pneumonia and/or fluid overload. MRSA pneumonia Status post intubation on May 11 and subsequent extubation on May 20 for respiratory failure Acute cardiopulmonary arrest. Lactic acidemia, resolved Morbid obesity Sleep apnea History of asthma Previous history of right diaphragm plication Moderate to severe aortic stenosis History of TIA Kidney stones Gout Hypothyroidism Hypertension Hyperlipidemia History of atrial fibrillation History of DJD Small right-sided pleural effusion Plan: Plan dated 05/23/2018 I will discuss the condition with the family. Prognosis remains very guarded giving her methotrexate and medical problems. Chest x-ray shows diffuse bilateral infiltrates consistent with either fluid overload and/or MRSA pneumonia. She remains BiPAP dependent which is not a good sign. Labs and x- rays are reviewed. Medications are reviewed. Zosyn and Levaquin is discontinued as cultures are only positive for methicillin-resistant staph aureus. The patient remains on vancomycin. Med list is evaluated and unnecessary medications are discontinued. Critical care time 36 minutes Plan dated 05/24/2018 The patient's situation remains about the same. The patient remains on vancomycin for methicillin-resistant staph aureus pneumonia. No chest x-ray was done today. It will be done tomorrow. She is a DO NOT RESUSCITATE. Would not want to be reintubated. I clarified that again yesterday with the family. I also talked to the patient about a today and she would not want to be reintubated. She is currently getting just a bit basic IV of saline at KVO. Chest x-ray was last done yesterday. Labs and x-rays are otherwise reviewed. White count 21.1. Hemoglobin 10.5. Hematocrit 33.2. The rest of the labs are reviewed. Critical care time 34 minutes Plan dated 05/26/2018 The patient continues to show relatively slow improvement. Chest x-ray seemed a bit better yesterday. She still requires high flow oxygen therapy and/or BiPAP. Labs are reviewed. Medications are reviewed. I speak to the patient every day. She understands her plate. She knows that she does not want to go back on life support. Additional recommendations and suggestions are forthcoming. We focus on deep breathing coughing clearing of secretions as well as use of incentive spirometer every hour. We did start her on blood thinners yesterday. We started her on a factor X a inhibitor. Critical care time 31 minutes Time with Patient: Greater than 30
[2018-05-26] MEDS: VANCOMYCIN 1,500 MG in SODIUM CHLORIDE 0.9% 250 ML IVPB SCH ×2 (09:17→20:09)
--- NOTE | 2018-05-26 10:24 | PN ---
PROGRESS NOTE Mrs. Tuttle is a 77-year-old female who presented with respiratory failure and was found to have evidence off pneumonia. She had respiratory failure requiring mechanical ventilation. She is extubated, continues to be on high-flow oxygen. She is feeling better, feeling stronger, continues to cough. She continues to be in atrial fibrillation with controlled ventricular response and anticoagulation was initiated yesterday. She denies any chest pain. It was felt that her effusion is small and no thoracentesis was indicated. She continues to be on amiodarone 400 mg twice a day, Eliquis, diltiazem 30 mg 3 times a day, Lasix 40 mg IV twice a day, Diamox. PHYSICAL EXAMINATION: Blood pressure 115/50 with a heart in the 70s. LUNGS: No wheezes with decreased air exchange in the right base. HEART: Irregularly irregular, S1, S2. No S3 with systolic murmur, no diastolic murmur, no rub. ABDOMEN: Soft, obese, nontender. EXTREMITIES: No edema. LAB DATA: Revealed BUN and creatinine 46 and 0.68, potassium 4.1, hemoglobin of 10.3, white blood cell of 19.5. IMPRESSION: 1. Respiratory failure with methicillin-resistant Staphylococcus aureus infection, improving. 2. Atrial fibrillation, paroxysmal at this time. She has been in atrial fibrillation for last 48 hours. 3. Hypertrophic cardiomyopathy. 4. Obstructive sleep apnea. 5. Right-sided pleural effusion. RECOMMENDATION: We will continue present therapy. Continue on the anticoagulation. At this time, I will adjust the dose of the Eliquis. Will follow her renal function. Depending on her rhythm, further recommendation will be made regarding the atrial fibrillation. MMODL / IJN: [id number] /
[2018-05-26] MEDS: LACTULOSE 20 GM/30 ML CUP PO SCH ×3 (10:57→21:39)
--- NOTE | 2018-05-26 11:52 | P.PN ---
Subjective Patient resting in bed family at bedside. Patient making some progress. Has nasal cannula place at this time. Noted to be in atrial fibrillation Objective - Vital Signs Vital signs: Vital Signs Temp 98.0 F 05/26/18 09:00 Pulse 84 05/26/18 11:15 Resp 20 05/26/18 10:00 BP 136/51 05/26/18 10:00 Pulse Ox 93 L 05/26/18 10:00 Intake & Output 05/25/18 05/26/18 05/26/18 18:59 06:59 18:59 Intake Total 350 570 280 Output Total 1885 930 825 Balance -1535 -360 -545 Weight 110.8 kg 108.7 kg Intake: IV 350 570 280 Potassium Chloride 20 meq 200 In Water For Injection 1 100ml.bag @ 50 mls/hr IVPB Q2H NIRANJAN Rx#: [id number] Sodium Chloride 0.9% 1, 80 120 30 000 ml @ 10 mls/hr IV . Q24H NIRANJAN Rx#:[id number] Vancomycin 1,500 mg In 270 250 250 Sodium Chloride 0.9% 250 ml @ 125 mls/hr IVPB Q12HR NIRANJAN Rx#:[id number] Output: Urine 1885 930 825 Other: Voiding Method Indwelling Catheter Indwelling Catheter Indwelling Catheter # Bowel Movements 1 ABP, PAP, CO, CI - Last Documented Arterial Blood Pressure - Constitutional General appearance: Present: morbidly obese - EENT Eyes: Present: PERRLA Ears: bilateral: normal - Neck Neck: Present: normal ROM - Respiratory Respiratory: bilateral: diminished, rhonchi - Cardiovascular Rhythm: irregularly irregular Abnormal Heart Sounds: Present: systolic murmur - Gastrointestinal General gastrointestinal: Present: soft - Integumentary Integumentary: Present: normal - Neurologic Neurologic: Present: CNII-XII intact - Musculoskeletal Musculoskeletal: Present: generalized weakness - Psychiatric Psychiatric: Present: A&O x's 3, appropriate affect, intact judgment & insight - Labs CBC & Chem 7: 05/26/18 05:02 05/26/18 05:02 Labs: Abnormal Lab Results - Last 24 Hours (Table) 05/25/18 05/25/18 05/25/18 Range/Units 11:59 17:05 20:46 WBC (3.8-10.6) k/uL RBC (3.80-5.40) m/uL Hgb (11.4-16.0) gm/dL Hct (34.0-46.0) % RDW (11.5-15.5) % Plt Count (150-450) k/uL Carbon Dioxide (22-30) mmol/L BUN (7-17) mg/dL Glucose (74-99) mg/dL POC Glucose (mg/dL) 145 H 131 H 210 H (75-99) mg/dL 05/26/18 05/26/18 05/26/18 Range/Units 05:02 05:02 06:49 WBC 19.5 H (3.8-10.6) k/uL RBC 3.55 L (3.80-5.40) m/uL Hgb 10.3 L (11.4-16.0) gm/dL Hct 32.6 L (34.0-46.0) % RDW 15.6 H (11.5-15.5) % Plt Count 135 L (150-450) k/uL Carbon Dioxide 36 H (22-30) mmol/L BUN 46 H (7-17) mg/dL Glucose 160 H (74-99) mg/dL POC Glucose (mg/dL) 164 H (75-99) mg/dL 05/26/18 Range/Units 07:25 WBC (3.8-10.6) k/uL RBC (3.80-5.40) m/uL Hgb (11.4-16.0) gm/dL Hct (34.0-46.0) % RDW (11.5-15.5) % Plt Count (150-450) k/uL Carbon Dioxide (22-30) mmol/L BUN (7-17) mg/dL Glucose (74-99) mg/dL POC Glucose (mg/dL) 146 H (75-99) mg/dL - Imaging and Cardiology Chest x-ray: report reviewed Assessment and Plan Plan: Assessment Acute hypoxic respiratory failure multifactorial Pneumonia with positive MRSA with sepsis Post acute cardiopulmonary arrest History of sleep apnea BiPAP at home Morbid obesity BMI 44.9 Acute on chronic congestive failure systolic dysfunction as well as valvular disease History of right hemodialysis from added medication History of TIA Osteoarthritis Hypothyroidism History of atrial fibrillation paroxysmal Hypotension Pleural effusion History of GERD History of gout post bronchoscopy with MRSA Plan Patient continues to be no code no CPR per patient and family wishes We'll continue with consultation with pulmonology and cardiology
[2018-05-26 12:04] LABS: Glucose,Whole Blood 129 mg/dL (75-99)
[2018-05-26] MEDS: SODIUM CHLORIDE 0.9% 1,000 ML IV SCH (12:35)
[2018-05-26 17:06] LABS: Glucose,Whole Blood 145 mg/dL (75-99)
[2018-05-26 20:08] LABS: Glucose,Whole Blood 163 mg/dL (75-99)
[2018-05-27 04:49] LABS: Basophils % (A) 0 %; Eosinophils % (A) 0 %; HCT 33.2 % (34.0-46.0); HGB 10.6 gm/dL (11.4-16.0); Hypochromasia Slight; Lymphocytes # (A) 0.3 k/uL (1.0-4.8); Lymphocytes % (A) 2 %; MCH 29.2 pg (25.0-35.0); MCHC 31.9 g/dL (31.0-37.0); MCV 91.7 fL (80.0-100.0); Mean Platelet Volume 7.4; Monocytes # (A) 0.7 k/uL (0-1.0); Monocytes % (A) 4 %; Neutrophils # (A) 15.7 k/uL (1.3-7.7); Neutrophils % (A) 93 %; Platelet Count 112 k/uL (150-450); RBC 3.62 m/uL (3.80-5.40); RDW 15.8 % (11.5-15.5); WBC 16.9 k/uL (3.8-10.6)
[2018-05-27 05:06] LABS: Anion Gap 3 mmol/L; Blood Urea Nitrogen 49 mg/dL (7-17); Calcium 8.5 mg/dL (8.4-10.2); Carbon Dioxide 36 mmol/L (22-30); Chloride 100 mmol/L (98-107); Glucose 175 mg/dL (74-99); Magnesium 2.1 mg/dL (1.6-2.3); Phosphorus 3.7 mg/dL (2.5-4.5); Potassium 4.1 mmol/L (3.5-5.1); Sodium 139 mmol/L (137-145)
[2018-05-27] MEDS: LEVOTHYROXINE 50 MCG TAB PO SCH (06:30)
[2018-05-27 07:07] LABS: Glucose,Whole Blood 169 mg/dL (75-99)
[2018-05-27] MEDS: IPRATROPIUM-ALBUTEROL 3 ML NEB INHALATION SCH ×4 (07:24→19:58)
[2018-05-27] MEDS ORDERED: VANCOMYCIN TROUGH DUE 1 EACH MISC MISCELLANE ONE ×2 (08:00→20:00)
--- NOTE | 2018-05-27 08:07 | XR ---
EXAMINATION TYPE: XR chest 1V portable DATE OF EXAM: 05/27/2018 COMPARISON: 05/25/2018 INDICATION: Follow-up pneumonia TECHNIQUE: Single frontal view of the chest is obtained. FINDINGS: The heart size is normal. The pulmonary vasculature is prominent. Some mild increased lung markings within the aerated lung is present can be associated with pulmonary edema. There is a right lower lobe opacity which appears stable. Pneumonia should be considered. Pleural eff usions may be present. Small left pleural effusion is present. IMPRESSION: 1. Clinical correlation recommended for pulmonary edema. 2. Moderate right pleural effusion and minimal left pleural effusion, stable. Right lower lobe pneumo elis is not excluded. Continued follow-up is recommended.
[2018-05-27] MEDS: INSULIN ASPART 100 UNIT/ML 1 ML 10 ML VIAL SQ SCH ×4 (08:52→20:14)
[2018-05-27] MEDS: methylPREDNISolone SOD SUCCI 40 MG/ML 1 ML VIAL IV SCH ×3 (08:52→23:56)
[2018-05-27] MEDS: PANTOPRAZOLE 40 MG/10 ML VIAL IVP SCH (08:52)
[2018-05-27] MEDS: AMIODARONE 200 MG TAB PO SCH ×2 (08:53→20:14)
[2018-05-27] MEDS: FUROSEMIDE 10 MG/ML 4 ML VIAL IV SCH ×3 (08:53→23:56)
[2018-05-27] MEDS: DILTIAZEM ORAL 30 MG TAB PO SCH ×3 (08:53→21:54)
[2018-05-27] MEDS: APIXABAN 5 MG TAB PO SCH ×2 (08:53→20:14)
--- NOTE | 2018-05-27 09:40 | PN ---
PROGRESS NOTE Mrs. Tuttle is a 77-year-old female who presented with respiratory failure requiring mechanical ventilation. She is extubated, feeling better and stronger today. She is back in atrial fibrillation with controlled ventricular response. She denies any chest pain. She denies any dizziness. She denies any palpitation. Overall, she feels better. She continues to have a cough, productive with occasional hemoptysis, although not as bad. She continued on amiodarone 40 mg twice a day, Eliquis 5 mg twice a day, diltiazem 30 mg 3 times a day, Lasix 40 mg IV q.12 hours and Diamox 250 mg IV q.12 hours. PHYSICAL EXAMINATION: Blood pressure 134/60 with a heart rate in 60. Lungs with decreased air exchange in the right base with few crackles. HEART: Irregular, regular, S1, S2. No S3 with a systolic ejection murmur, 3/6 heard at the left upper sternal border. ABDOMEN: Soft, obese, nontender. EXTREMITIES: No edema. IMPRESSION: 1. Pneumonia with a respiratory failure and methicillin-resistant Staphylococcus aureus, improving. 2. Atrial fibrillation, was paroxysmal initially. 3. History of hypertrophic cardiomyopathy. 4. Hypertension. 5. Obstructive sleep apnea. RECOMMENDATION: From the cardiac standpoint, I will cut down the dose of the amiodarone at this time. Continue the rest of medical regimen. Will continue IV Lasix. Continue to increase her level of activity and depending on her progress, further recommendation will be made. MMODL / IJN: [id number] /
[2018-05-27] MEDS: LACTULOSE 20 GM/30 ML CUP PO SCH ×3 (09:44→20:15)
--- NOTE | 2018-05-27 09:47 | P.PN ---
Subjective Progress Note Date: 05/27/18 Principal diagnosis: Respiratory failure Progress note dated 05/23/2018 This is a DO NOT RESUSCITATE patient who is 77 years of age. She was admitted way back on May 11 for respiratory failure. She was intubated on May 11 and finally extubated on the . She had bronchoscopy on the which apparently revealed methicillin-resistant staph aureus. Since extubation on the , she has been BiPAP dependent with settings of IPAP 16 EPAP 8 and an FiO2 50%. He is getting a saline IV just at KVO. As mentioned above, she is a DO NOT RESUSCITATE. She's been seen by my partners over the last number of days. The chest x-ray shows significant bilateral alveolar airspace disease with small effusions. None pleural effusion to do a thoracentesis on. Bronchial washings were positive for MRSA. Cytology has been negative. The patient remains on good antibiotic coverage. Overall, her prognosis remains poor. Her previous health was not very good. I'm glad that she has chosen to be a DO NOT RESUSCITATE and not to be reintubated. I think that is appropriate. Chest x-ray shows bilateral diffuse infiltrates. White count 15.2 hemoglobin 10 hematocrit 31.6 platelet count 149,000. Sodium potassium chloride normal CO2 40 be any crab were 54 and 0.93 bronchoscopy washings and sputum show evidence of methicillin resistant staph aureus. Medications are reviewed. Progress note dated 05/24/2018 The patient is again seen today. Currently she is a DO NOT RESUSCITATE. She spends half her time on BiPAP with settings of 16 IPAP and EPAP and 35% and the other time on AIRVO. Her IV is a saline IV at KVO. The patient did not have a chest x-ray today. The patient's last chest x-ray was done yesterday. I had a long talk with the family yesterday. The patient's bronchoscopy on the of this month showed epicillin resistant staph aureus. Chest x-ray shows diffuse bilateral infiltrates. We will get a chest x-ray tomorrow. The patient would not want to be reintubated again. She was very clear about that. The patient appears to be much more alert today. Still having some difficulty breathing. Not coughing very much. Not producing any phlegm. White count 21.1 hemoglobin 10.5 hematocrit 33.2 and platelet count 158,000. Sodium potassium chloride all normal. CO2 38. BUN and creatinine were 57 and 0.8. Progress note dated 05/26/2018 This is a 77-year-old female patient who is a DO NOT RESUSCITATE patient. The patient has a history of pneumonia. The patient is improving slowly. Chest x- ray from yesterday shows small right-sided pleural effusion and elevation of the right hemidiaphragm which is chronic. Also status post plication of the right diaphragm. This was done at [facility]. The bronchoscopy done by my partner on the of this month showed methicillin-resistant staph aureus. She's being treated for that. Chest x-ray showing bilateral infiltrates which has slowly improved. The patient spends half of her time on BiPAP and about half of her time using high flow oxygen therapy. As mentioned above, she does not want to be reintubated. White count is still high at 19.5 hemoglobin 10.3 hematocrit 32.6 platelet count is 135,000. Sodium potassium chloride normal CO2 36 anion gap 3, BUN and creatinine are 46 and 0.68. No chest x-ray today. Medications are reviewed. I been very honest and realistic with the patient. She understands that she may not make it. She does continue to work hard to try to improve. Progress note dated 05/27/2018 77-year-old female who is a DO NOT RESUSCITATE patient. She's been here in the hospital for a number of days. She was admitted with a diagnosis of pneumonia and respiratory failure. The respiratory failure is hypoxemic respiratory failure. Chest x-ray only shows minimal improvement. She's getting chronically elevated right hemidiaphragm. She had diaphragmatic plication done at [facility] for that. In addition, she got bilateral infiltrates. She also has small effusions. The patient underwent bronchoscopy by my partner on May 19. At that time, culture showed evidence of methicillin resistant staph aureus. She's been treated with vancomycin for that. The patient otherwise is doing about the same. She is on 6 L high flow currently. She also spent some time on BiPAP and AIRVO. Currently receiving a saline IV at 10 mL an hour. * PICC line to be placed. In addition, we'll give her some additional Lasix today. Today's white count is 16.9, hemoglobin 10.6 and hematocrit 33.2. In addition, platelet count 212,000. Sodium potassium chloride normal. CO2 36. Anion gap is 3. BUN/creatinine were 49 and 0.60 respectively. Objective - Vital Signs Vital signs: Vital Signs Temp 97.7 F 05/27/18 04:00 Pulse 78 05/27/18 07:25 Resp 20 05/27/18 07:00 BP 134/60 05/27/18 07:00 Pulse Ox 97 05/27/18 07:25 Intake & Output 05/26/18 05/27/18 05/27/18 18:59 06:59 18:59 Intake Total 360 350 10 Output Total 1675 1050 75 Balance -1315 -700 -65 Weight 108.7 kg 109.7 kg Intake: IV 360 350 10 Sodium Chloride 0.9% 1, 110 100 10 000 ml @ 10 mls/hr IV . Q24H NIRANJAN Rx#:[id number] Vancomycin 1,500 mg In 250 250 Sodium Chloride 0.9% 250 ml @ 125 mls/hr IVPB Q12HR NIRANJAN Rx#:[id number] Output: Urine 1675 1050 75 Other: Voiding Method Indwelling Catheter Indwelling Catheter # Bowel Movements 1 ABP, PAP, CO, CI - Last Documented Arterial Blood Pressure - Exam No acute distress, Nasal O2 in place. Patient appears much more alert today than yesterday. HEENT examination is grossly unremarkable. Mucous membranes are moist. Neck supple. Full range of motion. No adenopathy thyromegaly or neck vein distention. Cardiovascular examination reveals regular rhythm rate. S1-S2 normal. No S3 or S4. A loud systolic murmur of aortic stenosis is noted.. Lungs reveal severely diminished breath sounds throughout. There is coarse bilateral rhonchi and crackles. No wheezes. Breath sounds are equal bilaterally. Abdomen soft. Bowel sounds are not noted. No masses or tenderness. Extremities are intact. No cyanosis clubbing or edema. Skin is without rash or lesion. Neurologic examination is brief but nonfocal. - Labs CBC & Chem 7: 05/27/18 04:24 05/27/18 04:24 Labs: Abnormal Lab Results - Last 24 Hours (Table) 05/26/18 05/26/18 05/26/18 Range/Units 12:02 17:04 20:05 WBC (3.8-10.6) k/uL RBC (3.80-5.40) m/uL Hgb (11.4-16.0) gm/dL Hct (34.0-46.0) % RDW (11.5-15.5) % Plt Count (150-450) k/uL Neutrophils # (1.3-7.7) k/uL Lymphocytes # (1.0-4.8) k/uL Carbon Dioxide (22-30) mmol/L BUN (7-17) mg/dL Glucose (74-99) mg/dL POC Glucose (mg/dL) 129 H 145 H 163 H (75-99) mg/dL 05/27/18 05/27/18 05/27/18 Range/Units 04:24 04:24 07:05 WBC 16.9 H (3.8-10.6) k/uL RBC 3.62 L (3.80-5.40) m/uL Hgb 10.6 L (11.4-16.0) gm/dL Hct 33.2 L (34.0-46.0) % RDW 15.8 H (11.5-15.5) % Plt Count 112 L (150-450) k/uL Neutrophils # 15.7 H (1.3-7.7) k/uL Lymphocytes # 0.3 L (1.0-4.8) k/uL Carbon Dioxide 36 H (22-30) mmol/L BUN 49 H (7-17) mg/dL Glucose 175 H (74-99) mg/dL POC Glucose (mg/dL) 169 H (75-99) mg/dL Assessment and Plan Assessment: Assessment Acute hypoxemic respiratory failure secondary to bilateral diffuse infiltrates, which may relate to pneumonia and/or fluid overload. MRSA pneumonia Status post intubation on May 11 and subsequent extubation on May 20 for respiratory failure Acute cardiopulmonary arrest. Lactic acidemia, resolved Morbid obesity Sleep apnea History of asthma Previous history of right diaphragm plication Moderate to severe aortic stenosis History of TIA Kidney stones Gout Hypothyroidism Hypertension Hyperlipidemia History of atrial fibrillation History of DJD Small right-sided pleural effusion Plan: Plan dated 05/23/2018 I will discuss the condition with the family. Prognosis remains very guarded giving her methotrexate and medical problems. Chest x-ray shows diffuse bilateral infiltrates consistent with either fluid overload and/or MRSA pneumonia. She remains BiPAP dependent which is not a good sign. Labs and x- rays are reviewed. Medications are reviewed. Zosyn and Levaquin is discontinued as cultures are only positive for methicillin-resistant staph aureus. The patient remains on vancomycin. Med list is evaluated and unnecessary medications are discontinued. Critical care time 36 minutes Plan dated 05/24/2018 The patient's situation remains about the same. The patient remains on vancomycin for methicillin-resistant staph aureus pneumonia. No chest x-ray was done today. It will be done tomorrow. She is a DO NOT RESUSCITATE. Would not want to be reintubated. I clarified that again yesterday with the family. I also talked to the patient about a today and she would not want to be reintubated. She is currently getting just a bit basic IV of saline at KVO. Chest x-ray was last done yesterday. Labs and x-rays are otherwise reviewed. White count 21.1. Hemoglobin 10.5. Hematocrit 33.2. The rest of the labs are reviewed. Critical care time 34 minutes Plan dated 05/26/2018 The patient continues to show relatively slow improvement. Chest x-ray seemed a bit better yesterday. She still requires high flow oxygen therapy and/or BiPAP. Labs are reviewed. Medications are reviewed. I speak to the patient every day. She understands her plate. She knows that she does not want to go back on life support. Additional recommendations and suggestions are forthcoming. We focus on deep breathing coughing clearing of secretions as well as use of incentive spirometer every hour. We did start her on blood thinners yesterday. We started her on a factor X a inhibitor. Critical care time 31 minutes Plan dated 05/27/2018 Suzi is doing about the same. Today I tell her that. Her improvement has been very slow. Her chest x-ray looks about the same. The changes are very slow to occur. Today we will have a PICC line placed. I think she'll need that for long-term antibiotic treatment and other treatments. In addition, we' ll get the triple-lumen out to make sure that we culture the tip. In addition, we added some additional Lasix to her regimen. She is a bit prerenal. We'll watch her renal function carefully. We'll also watch her electrolytes carefully. We don't want her to become more prerenal or do we want any significant electrolyte disturbances such as hypokalemia. In addition, we don' t want any hypotension. The patient is between the BiPAP in 6 L high flow. Prognosis is guarded. She is a DO NOT RESUSCITATE. She understands that she may not make it. Additional recommendations and suggestions are forthcoming. Critical care time 31 minutes Time with Patient: Greater than 30
[2018-05-27] MEDS: VANCOMYCIN 1,500 MG in SODIUM CHLORIDE 0.9% 250 ML IVPB SCH ×2 (11:22→20:53)
[2018-05-27] MEDS: SODIUM CHLORIDE 0.9% 1,000 ML IV SCH (11:23)
[2018-05-27 11:56] LABS: Glucose,Whole Blood 129 mg/dL (75-99)
[2018-05-27 17:05] LABS: Glucose,Whole Blood 188 mg/dL (75-99)
[2018-05-27 20:03] LABS: Glucose,Whole Blood 166 mg/dL (75-99)
[2018-05-27 21:24] LABS: Potassium 3.5 mmol/L (3.5-5.1)
[2018-05-27] MEDS: POTASSIUM CHLORIDE 20 MEQ in WATER FOR INJECTION 1 100ML.BAG IVPB SCH ×2 (21:55→23:56)
[2018-05-28 04:44] LABS: Anisocytosis Slight; Basophils % (A) 0 %; Eosinophils % (A) 0 %; HCT 34.3 % (34.0-46.0); HGB 10.6 gm/dL (11.4-16.0); Hypochromasia Slight; Lymphocytes # (A) 0.3 k/uL (1.0-4.8); Lymphocytes % (A) 1 %; MCH 28.6 pg (25.0-35.0); MCV 92.4 fL (80.0-100.0); Mean Platelet Volume 7.3; Monocytes # (A) 0.7 k/uL (0-1.0); Monocytes % (A) 3 %; Neutrophils # (A) 20.6 k/uL (1.3-7.7); Neutrophils % (A) 95 %; Platelet Count 106 k/uL (150-450); RBC 3.71 m/uL (3.80-5.40); RDW 16.4 % (11.5-15.5); WBC 21.8 k/uL (3.8-10.6)
[2018-05-28 04:53] LABS: Anion Gap 0 mmol/L; Blood Urea Nitrogen 44 mg/dL (7-17); Calcium 8.5 mg/dL (8.4-10.2); Carbon Dioxide 37 mmol/L (22-30); Chloride 100 mmol/L (98-107); Glucose 168 mg/dL (74-99); Phosphorus 3.4 mg/dL (2.5-4.5); Sodium 137 mmol/L (137-145)
[2018-05-28] MEDS ORDERED: APIXABAN 5 MG TAB PO ONE (06:00)
[2018-05-28] MEDS: LEVOTHYROXINE 50 MCG TAB PO SCH (06:45)
[2018-05-28 06:58] LABS: Glucose,Whole Blood 148 mg/dL (75-99)
[2018-05-28] MEDS: INSULIN ASPART 100 UNIT/ML 1 ML 10 ML VIAL SQ SCH ×4 (08:31→20:21)
[2018-05-28] MEDS: methylPREDNISolone SOD SUCCI 40 MG/ML 1 ML VIAL IV SCH ×3 (08:32→23:57)
[2018-05-28] MEDS: FUROSEMIDE 10 MG/ML 4 ML VIAL IV SCH ×3 (08:32→23:57)
[2018-05-28] MEDS: IPRATROPIUM-ALBUTEROL 3 ML NEB INHALATION SCH ×4 (08:38→20:19)
--- NOTE | 2018-05-28 09:21 | P.PN ---
Subjective Progress Note Date: 05/28/18 Principal diagnosis: Respiratory failure Progress note dated 05/23/2018 This is a DO NOT RESUSCITATE patient who is 77 years of age. She was admitted way back on May 11 for respiratory failure. She was intubated on May 11 and finally extubated on the . She had bronchoscopy on the which apparently revealed methicillin-resistant staph aureus. Since extubation on the , she has been BiPAP dependent with settings of IPAP 16 EPAP 8 and an FiO2 50%. He is getting a saline IV just at KVO. As mentioned above, she is a DO NOT RESUSCITATE. She's been seen by my partners over the last number of days. The chest x-ray shows significant bilateral alveolar airspace disease with small effusions. None pleural effusion to do a thoracentesis on. Bronchial washings were positive for MRSA. Cytology has been negative. The patient remains on good antibiotic coverage. Overall, her prognosis remains poor. Her previous health was not very good. I'm glad that she has chosen to be a DO NOT RESUSCITATE and not to be reintubated. I think that is appropriate. Chest x-ray shows bilateral diffuse infiltrates. White count 15.2 hemoglobin 10 hematocrit 31.6 platelet count 149,000. Sodium potassium chloride normal CO2 40 be any crab were 54 and 0.93 bronchoscopy washings and sputum show evidence of methicillin resistant staph aureus. Medications are reviewed. Progress note dated 05/24/2018 The patient is again seen today. Currently she is a DO NOT RESUSCITATE. She spends half her time on BiPAP with settings of 16 IPAP and EPAP and 35% and the other time on AIRVO. Her IV is a saline IV at KVO. The patient did not have a chest x-ray today. The patient's last chest x-ray was done yesterday. I had a long talk with the family yesterday. The patient's bronchoscopy on the of this month showed epicillin resistant staph aureus. Chest x-ray shows diffuse bilateral infiltrates. We will get a chest x-ray tomorrow. The patient would not want to be reintubated again. She was very clear about that. The patient appears to be much more alert today. Still having some difficulty breathing. Not coughing very much. Not producing any phlegm. White count 21.1 hemoglobin 10.5 hematocrit 33.2 and platelet count 158,000. Sodium potassium chloride all normal. CO2 38. BUN and creatinine were 57 and 0.8. Progress note dated 05/26/2018 This is a 77-year-old female patient who is a DO NOT RESUSCITATE patient. The patient has a history of pneumonia. The patient is improving slowly. Chest x- ray from yesterday shows small right-sided pleural effusion and elevation of the right hemidiaphragm which is chronic. Also status post plication of the right diaphragm. This was done at [facility]. The bronchoscopy done by my partner on the of this month showed methicillin-resistant staph aureus. She's being treated for that. Chest x-ray showing bilateral infiltrates which has slowly improved. The patient spends half of her time on BiPAP and about half of her time using high flow oxygen therapy. As mentioned above, she does not want to be reintubated. White count is still high at 19.5 hemoglobin 10.3 hematocrit 32.6 platelet count is 135,000. Sodium potassium chloride normal CO2 36 anion gap 3, BUN and creatinine are 46 and 0.68. No chest x-ray today. Medications are reviewed. I been very honest and realistic with the patient. She understands that she may not make it. She does continue to work hard to try to improve. Progress note dated 05/27/2018 77-year-old female who is a DO NOT RESUSCITATE patient. She's been here in the hospital for a number of days. She was admitted with a diagnosis of pneumonia and respiratory failure. The respiratory failure is hypoxemic respiratory failure. Chest x-ray only shows minimal improvement. She's getting chronically elevated right hemidiaphragm. She had diaphragmatic plication done at [facility] for that. In addition, she got bilateral infiltrates. She also has small effusions. The patient underwent bronchoscopy by my partner on May 19. At that time, culture showed evidence of methicillin resistant staph aureus. She's been treated with vancomycin for that. The patient otherwise is doing about the same. She is on 6 L high flow currently. She also spent some time on BiPAP and AIRVO. Currently receiving a saline IV at 10 mL an hour. * PICC line to be placed. In addition, we'll give her some additional Lasix today. Today's white count is 16.9, hemoglobin 10.6 and hematocrit 33.2. In addition, platelet count 212,000. Sodium potassium chloride normal. CO2 36. Anion gap is 3. BUN/creatinine were 49 and 0.60 respectively. Progress note dated 05/28/2018 77-year-old female with a history of ongoing respiratory failure. She has hypoxemic respiratory failure secondary to methicillin-resistant staph aureus pneumonia as well as diffuse bilateral infiltrates likely related to fluid overload. Yesterday we gave the patient some additional diuretic. She currently is going between 6 L nasal cannula high flow, versus BiPAP, versus AIRVO. We did not get a chest x-ray today. Will be getting chest x-rays every other day. This been only minimal improvement. White count remains high at 21.8, hemoglobin 10.6, hematocrit 34.3 and platelet count 106,000. Sodium potassium chloride normal. CO2 37. Anion gap is noted to be 0. BUN and creatinine were 44 and 0.60 respectively. Microbiology is rechecked. The only thing positive for Gram stain some bronchial washings from the and respectively for methicillin-resistant staph aureus. The patient remains on vancomycin. She continues to be very short of breath. A PICC line was placed for chronic antibiotic therapy. Overall prognosis remains very guarded. She is a DO NOT RESUSCITATE patient and would not want to be back on life support regardless. Objective - Vital Signs Vital signs: Vital Signs Temp 97.4 F L 05/28/18 08:00 Pulse 90 05/28/18 08:56 Resp 25 H 05/28/18 08:00 BP 141/50 05/28/18 08:00 Pulse Ox 95 05/28/18 08:00 Intake & Output 05/27/18 05/28/18 05/28/18 18:59 06:59 18:59 Intake Total 380 550 10 Output Total 1999 1345 30 Balance -1620 -795 -20 Weight 106.9 kg Intake: IV 380 550 10 Potassium Chloride 20 meq 200 In Water For Injection 1 100ml.bag @ 50 mls/hr IVPB Q2H NIRANJAN Rx#: [id number] Sodium Chloride 0.9% 1, 130 100 10 000 ml @ 10 mls/hr IV . Q24H NIRANJAN Rx#:[id number] Vancomycin 1,500 mg In 250 250 Sodium Chloride 0.9% 250 ml @ 125 mls/hr IVPB Q12HR NIRANJAN Rx#:[id number] Output: Urine 1999 1345 30 Other: Voiding Method Indwelling Catheter Indwelling Catheter ABP, PAP, CO, CI - Last Documented Arterial Blood Pressure - Exam No acute distress, Nasal O2 in place. Patient appears a bit more short of breath today than yesterday. HEENT examination is grossly unremarkable. Mucous membranes are moist. Neck supple. Full range of motion. No adenopathy thyromegaly or neck vein distention. Cardiovascular examination reveals regular rhythm rate. S1-S2 normal. No S3 or S4. A loud systolic murmur of aortic stenosis is noted.. Lungs reveal severely diminished breath sounds throughout. There is coarse bilateral rhonchi and crackles. No wheezes. Breath sounds are equal bilaterally. In my opinion, this been no major changes in the way she sounds over the last couple of days. Abdomen soft. Bowel sounds are not noted. No masses or tenderness. Extremities are intact. No cyanosis clubbing or edema. Skin is without rash or lesion. Neurologic examination is brief but nonfocal. - Labs CBC & Chem 7: 05/28/18 04:30 05/28/18 04:30 Labs: Abnormal Lab Results - Last 24 Hours (Table) 05/27/18 05/27/18 05/27/18 Range/Units 11:55 17:03 20:01 WBC (3.8-10.6) k/uL RBC (3.80-5.40) m/uL Hgb (11.4-16.0) gm/dL RDW (11.5-15.5) % Plt Count (150-450) k/uL Neutrophils # (1.3-7.7) k/uL Lymphocytes # (1.0-4.8) k/uL Carbon Dioxide (22-30) mmol/L BUN (7-17) mg/dL Glucose (74-99) mg/dL POC Glucose (mg/dL) 129 H 188 H 166 H (75-99) mg/dL 05/27/18 05/28/18 05/28/18 Range/Units 20:07 04:30 04:30 WBC 21.8 H (3.8-10.6) k/uL RBC 3.71 L (3.80-5.40) m/uL Hgb 10.6 L (11.4-16.0) gm/dL RDW 16.4 H (11.5-15.5) % Plt Count 106 L (150-450) k/uL Neutrophils # 20.6 H (1.3-7.7) k/uL Lymphocytes # 0.3 L (1.0-4.8) k/uL Carbon Dioxide 36 H 37 H (22-30) mmol/L BUN 44 H (7-17) mg/dL Glucose 168 H (74-99) mg/dL POC Glucose (mg/dL) (75-99) mg/dL 05/28/18 Range/Units 06:57 WBC (3.8-10.6) k/uL RBC (3.80-5.40) m/uL Hgb (11.4-16.0) gm/dL RDW (11.5-15.5) % Plt Count (150-450) k/uL Neutrophils # (1.3-7.7) k/uL Lymphocytes # (1.0-4.8) k/uL Carbon Dioxide (22-30) mmol/L BUN (7-17) mg/dL Glucose (74-99) mg/dL POC Glucose (mg/dL) 148 H (75-99) mg/dL Assessment and Plan Assessment: Assessment Acute hypoxemic respiratory failure secondary to bilateral diffuse infiltrates, which may relate to MRSA pneumonia and/or fluid overload. MRSA pneumonia, currently on vancomycin Status post intubation on May 11 and subsequent extubation on May 20 for respiratory failure Acute cardiopulmonary arrest. Lactic acidemia, resolved Morbid obesity Sleep apnea History of asthma Previous history of right diaphragm plication Moderate to severe aortic stenosis History of TIA Kidney stones Gout Hypothyroidism Hypertension Hyperlipidemia History of atrial fibrillation History of DJD Small right-sided pleural effusion Plan: Plan dated 05/23/2018 I will discuss the condition with the family. Prognosis remains very guarded giving her methotrexate and medical problems. Chest x-ray shows diffuse bilateral infiltrates consistent with either fluid overload and/or MRSA pneumonia. She remains BiPAP dependent which is not a good sign. Labs and x- rays are reviewed. Medications are reviewed. Zosyn and Levaquin is discontinued as cultures are only positive for methicillin-resistant staph aureus. The patient remains on vancomycin. Med list is evaluated and unnecessary medications are discontinued. Critical care time 36 minutes Plan dated 05/24/2018 The patient's situation remains about the same. The patient remains on vancomycin for methicillin-resistant staph aureus pneumonia. No chest x-ray was done today. It will be done tomorrow. She is a DO NOT RESUSCITATE. Would not want to be reintubated. I clarified that again yesterday with the family. I also talked to the patient about a today and she would not want to be reintubated. She is currently getting just a bit basic IV of saline at KVO. Chest x-ray was last done yesterday. Labs and x-rays are otherwise reviewed. White count 21.1. Hemoglobin 10.5. Hematocrit 33.2. The rest of the labs are reviewed. Critical care time 34 minutes Plan dated 05/26/2018 The patient continues to show relatively slow improvement. Chest x-ray seemed a bit better yesterday. She still requires high flow oxygen therapy and/or BiPAP. Labs are reviewed. Medications are reviewed. I speak to the patient every day. She understands her plate. She knows that she does not want to go back on life support. Additional recommendations and suggestions are forthcoming. We focus on deep breathing coughing clearing of secretions as well as use of incentive spirometer every hour. We did start her on blood thinners yesterday. We started her on a factor X a inhibitor. Critical care time 31 minutes Plan dated 05/27/2018 Suzi is doing about the same. Today I tell her that. Her improvement has been very slow. Her chest x-ray looks about the same. The changes are very slow to occur. Today we will have a PICC line placed. I think she'll need that for long-term antibiotic treatment and other treatments. In addition, we' ll get the triple-lumen out to make sure that we culture the tip. In addition, we added some additional Lasix to her regimen. She is a bit prerenal. We'll watch her renal function carefully. We'll also watch her electrolytes carefully. We don't want her to become more prerenal or do we want any significant electrolyte disturbances such as hypokalemia. In addition, we don' t want any hypotension. The patient is between the BiPAP in 6 L high flow. Prognosis is guarded. She is a DO NOT RESUSCITATE. She understands that she may not make it. Additional recommendations and suggestions are forthcoming. Critical care time 31 minutes Plan dated 05/28/2018 Suzi is doing about the same. I don't see a great amount of improvement in her. She did not have a chest x-ray today. Her labs are reviewed. Microbiology is unchanged. The patient is a DO NOT RESUSCITATE patient. The patient appears to be more short of breath today than yesterday. She seemed bit more anxious. I will have a conversation with the family members. Again overall prognosis remains very guarded. Medications are reviewed. Labs are reviewed. Chest x-ray be done tomorrow. No additional recommendations are made. Critical care time 31 minutes Time with Patient: Greater than 30
[2018-05-28] MEDS: DILTIAZEM ORAL 30 MG TAB PO SCH ×3 (09:55→21:03)
[2018-05-28] MEDS: PANTOPRAZOLE 40 MG TABLET PO SCH (09:55)
[2018-05-28] MEDS: AMIODARONE 200 MG TAB PO SCH ×2 (09:55→20:11)
--- NOTE | 2018-05-28 11:08 | PN ---
PROGRESS NOTE Mrs. Tuttle is a 77-year-old female with a history off hypertrophic cardiomyopathy who presented with an episode of respiratory failure related to pneumonia and MRSA, was intubated. She is extubated at this time. She is feeling better overall. Continues to be dyspneic. She denies any symptoms of chest pain. She denies any dizziness, palpitation. She denies any nausea. She continues to be in atrial fibrillation with controlled ventricular response. She is dyspneic with mild movement in bed. She continues to be at this time on amiodarone 200 mg twice a day, Eliquis 5 mg twice a day, diltiazem 30 mg 3 times a day. Her Lasix was increased to 40 mg IV q.8 hours. She continues to be on the Diamox q.12 hours. PHYSICAL EXAMINATION: Blood pressure running in the 110s to 140s with a heart rate in the 90s. Lungs was mild decrease in breath sounds, no wheezes. HEART: Irregularly, irregular. S1, S2. No S3 with systolic murmur, no diastolic murmur. No rub. ABDOMEN: Soft, obese, nontender. EXTREMITIES: +1 edema bilaterally. IMPRESSION: 1. Respiratory failure with pneumonia and methicillin-resistant Staphylococcus aureus. 2. Atrial fibrillation. 3. Hypertrophic cardiomyopathy. 4. Obstructive sleep apnea. RECOMMENDATION: Will continue present therapy. Will continue on the present dose of amiodarone. She remains in atrial fibrillation. We may stop that and make a decision to just control the ventricular response. She remains quite ill, although improved in comparison to last week. MMODL / IJN: [id number] /
[2018-05-28] MEDS: SODIUM CHLORIDE 0.9% 1,000 ML IV SCH (11:18)
[2018-05-28 12:13] LABS: Glucose,Whole Blood 156 mg/dL (75-99)
[2018-05-28 17:29] LABS: Glucose,Whole Blood 209 mg/dL (75-99)
[2018-05-28 20:19] LABS: Glucose,Whole Blood 212 mg/dL (75-99)
[2018-05-28] MEDS: VANCOMYCIN 1,500 MG in SODIUM CHLORIDE 0.9% 250 ML IVPB SCH (21:03)
--- NOTE | 2018-05-28 21:44 | P.PN ---
Subjective Patient is on 73-year-old female with a known history of obstructive sleep apnea on biPAP, Hypothyroidism, valvular heart disease with aortic stenosis and congestive heart failure and multiple other medical problems including morbid obesity presented to hospital with worsening shortness of breath. Patient was at [facility] studies where she had progressive shortness of breath. Patient's pulse ox was low 70s upon EMS arrival. Patient was placed on 100% nonrebreather but the patient remained hypoxic. Patient was placed on BiPAP. And was transferred to ER. Patient was given breathing treatments while in the ER without much relief. Patient was subsequently intubated due to acute hypoxic respiratory failure. Currently patient is intubated and is in the medical intensive care unit. Chest x-ray showed no evidence of pneumothorax. Bilateral air space disease was present in the perihilar region in the lower lobes bilaterally right more than left. WC count was 22 on admission. Lactic acid 5.9 on admission 05/27/2018 Patient remains in critical condition. Is not improving much. And family considering comfort care 05/28/2018 pt is with possible MRSA pneumonia on iv vancomycin and has picc line for possible manager intermediate management , pt is still dyspneic and need high flow oxygen and BiPAP therapy Objective - Vital Signs Vital signs: Vital Signs Temp 98.3 F 05/28/18 12:00 Pulse 112 H 05/28/18 21:00 Resp 30 H 05/28/18 21:00 BP 113/60 05/28/18 21:00 Pulse Ox 96 05/28/18 21:21 Intake & Output 05/28/18 05/28/18 05/29/18 06:59 18:59 06:59 Intake Total 550 110 30 Output Total 1345 1375 145 Balance -795 -1265 -115 Weight 106.9 kg Intake: IV 550 110 30 Potassium Chloride 20 meq 200 In Water For Injection 1 100ml.bag @ 50 mls/hr IVPB Q2H NIRANJAN Rx#: [id number] Sodium Chloride 0.9% 1, 100 110 30 000 ml @ 10 mls/hr IV . Q24H NIRANJAN Rx#:[id number] Vancomycin 1,500 mg In 250 Sodium Chloride 0.9% 250 ml @ 125 mls/hr IVPB Q12HR NIRANJAN Rx#:[id number] Output: Urine 1345 1375 145 Other: Voiding Method Indwelling Catheter Indwelling Catheter Indwelling Catheter ABP, PAP, CO, CI - Last Documented Arterial Blood Pressure - Exam GENERAL: The patient is alert and oriented x3, not in any acute distress. Obese. HEENT: Pupils are round and equally reacting to light. EOMI. No scleral icterus. No conjunctival pallor. Normocephalic, atraumatic. No pharyngeal erythema. No thyromegaly. CARDIOVASCULAR: S1 and S2 present. No murmurs, rubs, or gallops. PULMONARY: Gross breath sounds is in respiratory distress on BiPAP ABDOMEN: Soft, nontender, nondistended, normoactive bowel sounds. No palpable organomegaly. MUSCULOSKELETAL: No joint swelling or deformity. EXTREMITIES: No cyanosis, clubbing, or pedal edema. NEUROLOGICAL: Gross neurological examination did not reveal any focal deficits. SKIN: No rashes. - Labs CBC & Chem 7: 05/28/18 04:30 05/28/18 04:30 Labs: Abnormal Lab Results - Last 24 Hours (Table) 05/28/18 05/28/18 05/28/18 Range/Units 04:30 04:30 06:57 WBC 21.8 H (3.8-10.6) k/uL RBC 3.71 L (3.80-5.40) m/uL Hgb 10.6 L (11.4-16.0) gm/dL RDW 16.4 H (11.5-15.5) % Plt Count 106 L (150-450) k/uL Neutrophils # 20.6 H (1.3-7.7) k/uL Lymphocytes # 0.3 L (1.0-4.8) k/uL Carbon Dioxide 37 H (22-30) mmol/L BUN 44 H (7-17) mg/dL Glucose 168 H (74-99) mg/dL POC Glucose (mg/dL) 148 H (75-99) mg/dL 05/28/18 05/28/18 05/28/18 Range/Units 12:11 17:25 20:17 WBC (3.8-10.6) k/uL RBC (3.80-5.40) m/uL Hgb (11.4-16.0) gm/dL RDW (11.5-15.5) % Plt Count (150-450) k/uL Neutrophils # (1.3-7.7) k/uL Lymphocytes # (1.0-4.8) k/uL Carbon Dioxide (22-30) mmol/L BUN (7-17) mg/dL Glucose (74-99) mg/dL POC Glucose (mg/dL) 156 H 209 H 212 H (75-99) mg/dL Assessment and Plan Plan: Assessment and Plan Plan: Acute hypoxic respiratory failure. Multifactorial secondary to bilateral lower lobe pneumonia ,CHF. extubated to BiPAP (Bilateral lower lobe pneumonia. Right greater than left), patient is on IV vancomycin patient the bronchial cultures are positive for staph aureus patient appears to have staph early pneumonia Acute cardio pulmonary arrest with brief loss of pulse status post CPR and a dose of epinephrine with return of spontaneous circulation. Lactic acidosis 5.9 on admission improving, recovered Sepsis secondary to pneumonia Obstructive sleep apnea on BiPAP at home Morbid obesity with BMI 44.9 with possible underlying obesity hypoventilation Acute on chronic CHF with systolic dysfunction as well as valvular heart disease History of right hemidiaphragmatic plication for unilateral paralysis History of TIA Nephrolithiasis Osteoarthritis Hypothyroidism with low free T4 level and elevated TSH. Uncontrolled History of atrial fibrillation. Paroxysmal. Currently in sinus rhythm on Rythmol GERD Gout status post bronchoscopy with lavage of right lower lobe No Code, no CPR as per family's wishes. Her overall prognosis and poor considering her obesity hypoventilation syndrome morbid obesity sleep apnea and possibility of COPD. Patient does use oxygen at home does use BiPAP at home at nighttime. Patient is on BiPAP at this point of time without BiPAP patient desaturates very quickly.
[2018-05-28] MEDS: MAGNESIUM SULFATE-D5W PMX 1 GM in DEXTROSE/WATER 1 100ML.BAG IVPB SCH (23:57)
[2018-05-29] MEDS: MAGNESIUM SULFATE-D5W PMX 1 GM in DEXTROSE/WATER 1 100ML.BAG IVPB SCH (01:28)
[2018-05-29 04:18] LABS: Anisocytosis Slight; Basophils % (A) 0 %; Eosinophils % (A) 0 %; HCT 35.2 % (34.0-46.0); HGB 11.1 gm/dL (11.4-16.0); Lymphocytes # (A) 0.3 k/uL (1.0-4.8); Lymphocytes % (A) 1 %; MCH 28.5 pg (25.0-35.0); MCHC 31.6 g/dL (31.0-37.0); MCV 90.1 fL (80.0-100.0); Mean Platelet Volume 7.8; Monocytes # (A) 0.9 k/uL (0-1.0); Monocytes % (A) 4 %; Neutrophils # (A) 23.6 k/uL (1.3-7.7); Neutrophils % (A) 95 %; Platelet Count 103 k/uL (150-450); RBC 3.91 m/uL (3.80-5.40); RDW 16.1 % (11.5-15.5); WBC 24.9 k/uL (3.8-10.6)
[2018-05-29 04:30] LABS: Anion Gap 3 mmol/L; Blood Urea Nitrogen 47 mg/dL (7-17); Calcium 8.5 mg/dL (8.4-10.2); Chloride 97 mmol/L (98-107); Glucose 212 mg/dL (74-99); Magnesium 2.6 mg/dL (1.6-2.3); Phosphorus 3.2 mg/dL (2.5-4.5); Potassium 3.7 mmol/L (3.5-5.1); Sodium 140 mmol/L (137-145)
[2018-05-29 05:01] LABS: Carbon Dioxide 40 mmol/L (22-30)
[2018-05-29] MEDS: POTASSIUM CHLORIDE 10 MEQ in WATER FOR INJECTION 1 100ML.BAG IVPB SCH ×2 (05:51→07:00)
[2018-05-29] MEDS: LEVOTHYROXINE 50 MCG TAB PO SCH (06:37)
--- NOTE | 2018-05-29 06:54 | XR ---
EXAMINATION TYPE: XR chest 1V portable DATE OF EXAM: 05/29/2018 HISTORY: Pneumonia. REFERENCE: Previous study dated 05/27/2018. FINDINGS: There is a left subclavian catheter in place. Its tip is in the superior vena cava. There is marked, apparent elevation of the right hemidiaphragm. Heart size is obscured. There are small, bilateral effusions. Pulmonary vasculature and interstitial change has improved. IMPRESSION: IMPROVING CHANGES OF CONGESTIVE HEART FAILURE.
[2018-05-29] MEDS: IPRATROPIUM-ALBUTEROL 3 ML NEB INHALATION SCH ×4 (07:29→19:32)
[2018-05-29 07:36] LABS: Glucose,Whole Blood 174 mg/dL (75-99)
[2018-05-29] MEDS: methylPREDNISolone SOD SUCCI 40 MG/ML 1 ML VIAL IV SCH ×3 (08:55→23:07)
[2018-05-29] MEDS: FUROSEMIDE 10 MG/ML 4 ML VIAL IV SCH ×3 (08:56→23:11)
[2018-05-29] MEDS: AMIODARONE 200 MG TAB PO SCH ×2 (08:57→21:01)
[2018-05-29] MEDS: DILTIAZEM ORAL 30 MG TAB PO SCH ×3 (08:57→22:13)
[2018-05-29] MEDS: PANTOPRAZOLE 40 MG TABLET PO SCH (08:57)
[2018-05-29] MEDS ORDERED: acetaZOLAMIDE 250 MG TAB PO SCH (09:00)
[2018-05-29] MEDS: INSULIN ASPART 100 UNIT/ML 1 ML 10 ML VIAL SQ SCH ×4 (09:15→21:12)
--- NOTE | 2018-05-29 09:34 | P.PN ---
Subjective Progress Note Date: 05/29/18 Principal diagnosis: Respiratory failure Progress note dated 05/23/2018 This is a DO NOT RESUSCITATE patient who is 77 years of age. She was admitted way back on May 11 for respiratory failure. She was intubated on May 11 and finally extubated on the . She had bronchoscopy on the which apparently revealed methicillin-resistant staph aureus. Since extubation on the , she has been BiPAP dependent with settings of IPAP 16 EPAP 8 and an FiO2 50%. He is getting a saline IV just at KVO. As mentioned above, she is a DO NOT RESUSCITATE. She's been seen by my partners over the last number of days. The chest x-ray shows significant bilateral alveolar airspace disease with small effusions. None pleural effusion to do a thoracentesis on. Bronchial washings were positive for MRSA. Cytology has been negative. The patient remains on good antibiotic coverage. Overall, her prognosis remains poor. Her previous health was not very good. I'm glad that she has chosen to be a DO NOT RESUSCITATE and not to be reintubated. I think that is appropriate. Chest x-ray shows bilateral diffuse infiltrates. White count 15.2 hemoglobin 10 hematocrit 31.6 platelet count 149,000. Sodium potassium chloride normal CO2 40 be any crab were 54 and 0.93 bronchoscopy washings and sputum show evidence of methicillin resistant staph aureus. Medications are reviewed. Progress note dated 05/24/2018 The patient is again seen today. Currently she is a DO NOT RESUSCITATE. She spends half her time on BiPAP with settings of 16 IPAP and EPAP and 35% and the other time on AIRVO. Her IV is a saline IV at KVO. The patient did not have a chest x-ray today. The patient's last chest x-ray was done yesterday. I had a long talk with the family yesterday. The patient's bronchoscopy on the of this month showed epicillin resistant staph aureus. Chest x-ray shows diffuse bilateral infiltrates. We will get a chest x-ray tomorrow. The patient would not want to be reintubated again. She was very clear about that. The patient appears to be much more alert today. Still having some difficulty breathing. Not coughing very much. Not producing any phlegm. White count 21.1 hemoglobin 10.5 hematocrit 33.2 and platelet count 158,000. Sodium potassium chloride all normal. CO2 38. BUN and creatinine were 57 and 0.8. Progress note dated 05/26/2018 This is a 77-year-old female patient who is a DO NOT RESUSCITATE patient. The patient has a history of pneumonia. The patient is improving slowly. Chest x- ray from yesterday shows small right-sided pleural effusion and elevation of the right hemidiaphragm which is chronic. Also status post plication of the right diaphragm. This was done at [facility]. The bronchoscopy done by my partner on the of this month showed methicillin-resistant staph aureus. She's being treated for that. Chest x-ray showing bilateral infiltrates which has slowly improved. The patient spends half of her time on BiPAP and about half of her time using high flow oxygen therapy. As mentioned above, she does not want to be reintubated. White count is still high at 19.5 hemoglobin 10.3 hematocrit 32.6 platelet count is 135,000. Sodium potassium chloride normal CO2 36 anion gap 3, BUN and creatinine are 46 and 0.68. No chest x-ray today. Medications are reviewed. I been very honest and realistic with the patient. She understands that she may not make it. She does continue to work hard to try to improve. Progress note dated 05/27/2018 77-year-old female who is a DO NOT RESUSCITATE patient. She's been here in the hospital for a number of days. She was admitted with a diagnosis of pneumonia and respiratory failure. The respiratory failure is hypoxemic respiratory failure. Chest x-ray only shows minimal improvement. She's getting chronically elevated right hemidiaphragm. She had diaphragmatic plication done at [facility] for that. In addition, she got bilateral infiltrates. She also has small effusions. The patient underwent bronchoscopy by my partner on May 19. At that time, culture showed evidence of methicillin resistant staph aureus. She's been treated with vancomycin for that. The patient otherwise is doing about the same. She is on 6 L high flow currently. She also spent some time on BiPAP and AIRVO. Currently receiving a saline IV at 10 mL an hour. * PICC line to be placed. In addition, we'll give her some additional Lasix today. Today's white count is 16.9, hemoglobin 10.6 and hematocrit 33.2. In addition, platelet count 212,000. Sodium potassium chloride normal. CO2 36. Anion gap is 3. BUN/creatinine were 49 and 0.60 respectively. Progress note dated 05/28/2018 77-year-old female with a history of ongoing respiratory failure. She has hypoxemic respiratory failure secondary to methicillin-resistant staph aureus pneumonia as well as diffuse bilateral infiltrates likely related to fluid overload. Yesterday we gave the patient some additional diuretic. She currently is going between 6 L nasal cannula high flow, versus BiPAP, versus AIRVO. We did not get a chest x-ray today. Will be getting chest x-rays every other day. This been only minimal improvement. White count remains high at 21.8, hemoglobin 10.6, hematocrit 34.3 and platelet count 106,000. Sodium potassium chloride normal. CO2 37. Anion gap is noted to be 0. BUN and creatinine were 44 and 0.60 respectively. Microbiology is rechecked. The only thing positive for Gram stain some bronchial washings from the and respectively for methicillin-resistant staph aureus. The patient remains on vancomycin. She continues to be very short of breath. A PICC line was placed for chronic antibiotic therapy. Overall prognosis remains very guarded. She is a DO NOT RESUSCITATE patient and would not want to be back on life support regardless. Progress note dated 05/29/2018 77-year-old female with history of ongoing chronic respiratory failure. His primarily hypoxemic respiratory failure secondary to methicillin-resistant staph aureus pneumonia as well as fluid overload. The patient's about the same. Clinically talking to her she feels about the same. She goes between 6 L high flow O2 and AIRVO. She can also asked for the BiPAP machine as I she needs it. Her chest x-ray remains about the same to slightly improved. This is because we've increased her diuretics. She remains on vancomycin for her methicillin-resistant staph aureus infection. She does not want to be reintubated. She is a DO NOT RESUSCITATE. White count is 24.9 hemoglobin 11.1 hematocrit 35.2 and platelet count 103,000. Sodium potassium is normal. Chloride 97 CO2 40 anion gap 3 BUN and creatinine 47 and 0.70, respectively. Microbiology is unchanged. She is on a saline IV at 20 mL an hour. Objective - Vital Signs Vital signs: Vital Signs Temp 98.3 F 05/29/18 08:00 Pulse 88 05/29/18 08:00 Resp 27 H 05/29/18 08:00 BP 122/57 05/29/18 08:00 Pulse Ox 97 05/29/18 08:44 Intake & Output 05/28/18 05/29/18 05/29/18 18:59 06:59 18:59 Intake Total 110 720 Output Total 1375 1370 Balance -1265 -650 Weight 104.4 kg Intake: IV 110 720 Magnesium Sulfate-D5w Pmx 200 1 gm In Dextrose/Water 1 100ml.bag @ 100 mls/hr IVPB Q1H NIRANJAN Rx#: [id number] Potassium Chloride 10 meq 100 In Water For Injection 1 100ml.bag @ 100 mls/hr IVPB Q1H NIRANJAN Rx#: [id number] Potassium Chloride 20 meq 100 In Water For Injection 1 100ml.bag @ 50 mls/hr IVPB Q2H NIRANJAN Rx#: [id number] Sodium Chloride 0.9% 1, 110 70 000 ml @ 10 mls/hr IV . Q24H NIRANJAN Rx#:[id number] Vancomycin 1,500 mg In 250 Sodium Chloride 0.9% 250 ml @ 125 mls/hr IVPB Q12HR NIRANJAN Rx#:[id number] Output: Urine 1375 1370 Other: Voiding Method Indwelling Catheter Indwelling Catheter Indwelling Catheter ABP, PAP, CO, CI - Last Documented Arterial Blood Pressure 24/24 - Exam No acute distress, Nasal O2 in place. Patient appears a bit more short of breath today than yesterday. HEENT examination is grossly unremarkable. Mucous membranes are moist. Neck supple. Full range of motion. No adenopathy thyromegaly or neck vein distention. Cardiovascular examination reveals regular rhythm rate. S1-S2 normal. No S3 or S4. A loud systolic murmur of aortic stenosis is noted.. Lungs reveal severely diminished breath sounds throughout. There is coarse bilateral rhonchi and crackles. No wheezes. Breath sounds are equal bilaterally. In my opinion, this been no major changes in the way she sounds over the last couple of days. Abdomen soft. Bowel sounds are not noted. No masses or tenderness. Extremities are intact. No cyanosis clubbing or edema. Skin is without rash or lesion. Neurologic examination is brief but nonfocal. - Labs CBC & Chem 7: 05/29/18 04:00 05/29/18 04:00 Labs: Abnormal Lab Results - Last 24 Hours (Table) 05/28/18 05/28/18 05/28/18 Range/Units 12:11 17:25 20:17 WBC (3.8-10.6) k/uL Hgb (11.4-16.0) gm/dL RDW (11.5-15.5) % Plt Count (150-450) k/uL Neutrophils # (1.3-7.7) k/uL Lymphocytes # (1.0-4.8) k/uL Chloride (98-107) mmol/L Carbon Dioxide (22-30) mmol/L BUN (7-17) mg/dL Glucose (74-99) mg/dL POC Glucose (mg/dL) 156 H 209 H 212 H (75-99) mg/dL Magnesium (1.6-2.3) mg/dL 05/29/18 05/29/18 05/29/18 Range/Units 04:00 04:00 07:33 WBC 24.9 H (3.8-10.6) k/uL Hgb 11.1 L (11.4-16.0) gm/dL RDW 16.1 H (11.5-15.5) % Plt Count 103 L (150-450) k/uL Neutrophils # 23.6 H (1.3-7.7) k/uL Lymphocytes # 0.3 L (1.0-4.8) k/uL Chloride 97 L (98-107) mmol/L Carbon Dioxide 40 H* (22-30) mmol/L BUN 47 H (7-17) mg/dL Glucose 212 H (74-99) mg/dL POC Glucose (mg/dL) 174 H (75-99) mg/dL Magnesium 2.6 H (1.6-2.3) mg/dL Assessment and Plan Assessment: Assessment Acute hypoxemic respiratory failure secondary to bilateral diffuse infiltrates, which may relate to MRSA pneumonia and/or fluid overload. MRSA pneumonia, currently on vancomycin Status post intubation on May 11 and subsequent extubation on May 20 for respiratory failure Acute cardiopulmonary arrest. Lactic acidemia, resolved Morbid obesity Sleep apnea History of asthma Previous history of right diaphragm plication Moderate to severe aortic stenosis History of TIA Kidney stones Gout Hypothyroidism Hypertension Hyperlipidemia History of atrial fibrillation History of DJD Small right-sided pleural effusion Plan: Plan dated 05/23/2018 I will discuss the condition with the family. Prognosis remains very guarded giving her methotrexate and medical problems. Chest x-ray shows diffuse bilateral infiltrates consistent with either fluid overload and/or MRSA pneumonia. She remains BiPAP dependent which is not a good sign. Labs and x- rays are reviewed. Medications are reviewed. Zosyn and Levaquin is discontinued as cultures are only positive for methicillin-resistant staph aureus. The patient remains on vancomycin. Med list is evaluated and unnecessary medications are discontinued. Critical care time 36 minutes Plan dated 05/24/2018 The patient's situation remains about the same. The patient remains on vancomycin for methicillin-resistant staph aureus pneumonia. No chest x-ray was done today. It will be done tomorrow. She is a DO NOT RESUSCITATE. Would not want to be reintubated. I clarified that again yesterday with the family. I also talked to the patient about a today and she would not want to be reintubated. She is currently getting just a bit basic IV of saline at KVO. Chest x-ray was last done yesterday. Labs and x-rays are otherwise reviewed. White count 21.1. Hemoglobin 10.5. Hematocrit 33.2. The rest of the labs are reviewed. Critical care time 34 minutes Plan dated 05/26/2018 The patient continues to show relatively slow improvement. Chest x-ray seemed a bit better yesterday. She still requires high flow oxygen therapy and/or BiPAP. Labs are reviewed. Medications are reviewed. I speak to the patient every day. She understands her plate. She knows that she does not want to go back on life support. Additional recommendations and suggestions are forthcoming. We focus on deep breathing coughing clearing of secretions as well as use of incentive spirometer every hour. We did start her on blood thinners yesterday. We started her on a factor X a inhibitor. Critical care time 31 minutes Plan dated 05/27/2018 Suzi is doing about the same. Today I tell her that. Her improvement has been very slow. Her chest x-ray looks about the same. The changes are very slow to occur. Today we will have a PICC line placed. I think she'll need that for long-term antibiotic treatment and other treatments. In addition, we' ll get the triple-lumen out to make sure that we culture the tip. In addition, we added some additional Lasix to her regimen. She is a bit prerenal. We'll watch her renal function carefully. We'll also watch her electrolytes carefully. We don't want her to become more prerenal or do we want any significant electrolyte disturbances such as hypokalemia. In addition, we don' t want any hypotension. The patient is between the BiPAP in 6 L high flow. Prognosis is guarded. She is a DO NOT RESUSCITATE. She understands that she may not make it. Additional recommendations and suggestions are forthcoming. Critical care time 31 minutes Plan dated 05/28/2018 Suzi is doing about the same. I don't see a great amount of improvement in her. She did not have a chest x-ray today. Her labs are reviewed. Microbiology is unchanged. The patient is a DO NOT RESUSCITATE patient. The patient appears to be more short of breath today than yesterday. She seemed bit more anxious. I will have a conversation with the family members. Again overall prognosis remains very guarded. Medications are reviewed. Labs are reviewed. Chest x-ray be done tomorrow. No additional recommendations are made. Critical care time 31 minutes Plan dated 05/29/2018 When you talk to Suzi, she she feels about the same. Chest x-ray looks about the same to slightly improved. We'll continue with the vancomycin breathing treatments and diuretics. Overall poor is guarded. She absolutely does not want to be reintubated should she deteriorate. We talked about that numerous times. I've also had a conversation with her family. We'll continue to do a doing. Hopefully she'll get better. No additional recommendations are made. Medications are reviewed on a daily basis. Critical care time 31 minutes Time with Patient: Greater than 30
--- NOTE | 2018-05-29 10:30 | PN ---
PROGRESS NOTE Mrs. Tuttle is a 77-year-old female who presented with respiratory failure requiring mechanical ventilation. She is extubated continues on high-flow oxygen. She denies any symptoms of chest pain. She feels tired but has no other symptoms. She continues to be in atrial fibrillation with controlled ventricular response. She is tolerating p.o. intake without difficulty. She denies any dizziness or palpitation. Her urine output has been stable. She continues to be on Lasix 40 mg IV q.8 hours, amiodarone 200 mg twice a day, Diamox 500 mg daily, Eliquis 5 mg twice a day, and Cardizem 30 mg 3 times a day. PHYSICAL EXAMINATION: Blood pressure 122/50 with a heart rate in the 80s. Lungs with decreased breath sounds in the right base with scattered rhonchi. Heart irregularly irregular S1, S2. No S3 with systolic ejection murmur. ABDOMEN: Soft, nontender, obese. Extremities trace edema. LAB DATA: BUN and creatinine 47 and 0.7, white blood cell of 24.9. IMPRESSION: 1. Respiratory failure with pneumonia and methicillin-resistant Staphylococcus aureus. 2. Atrial fibrillation persistent anticoagulated with controlled ventricular response. 3. Symptoms of fluid overload, improving. 4. Hypertrophic cardiomyopathy. RECOMMENDATION: We will continue present therapy. Increase the level of activity gradually and depending on her progress, further recommendations will be made. MMODL / IJN: [id number] /
[2018-05-29] MEDS: SODIUM CHLORIDE 0.9% 1,000 ML IV SCH (11:30)
[2018-05-29 12:11] LABS: Glucose,Whole Blood 166 mg/dL (75-99)
[2018-05-29] MEDS: ALPRAZolam 0.25 MG TAB PO PRN ×2 (15:04→23:18)
[2018-05-29 17:34] LABS: Glucose,Whole Blood 198 mg/dL (75-99)
[2018-05-29] MEDS: MAG HYDROX/AL HYDROX/SIMETH 30 ML, LIDOCAINE VISCOUS 30 ML, NYSTATIN 100,000 UNIT/ML SU... PO PRN ×3 (21:02)
[2018-05-29 21:09] LABS: Glucose,Whole Blood 218 mg/dL (75-99)
[2018-05-29] MEDS: VANCOMYCIN 1,500 MG in SODIUM CHLORIDE 0.9% 250 ML IVPB SCH (21:13)
[2018-05-29] MEDS: BENZOCAINE SPRAY 1 CAN MUCOUS MEM PRN (22:14)
[2018-05-29] MEDS: HYDROmorphone 2 MG TAB PO PRN (23:18)
--- NOTE | 2018-05-30 01:51 | P.PN ---
Subjective Patient is on 73-year-old female with a known history of obstructive sleep apnea on biPAP, Hypothyroidism, valvular heart disease with aortic stenosis and congestive heart failure and multiple other medical problems including morbid obesity presented to hospital with worsening shortness of breath. Patient was at [facility] studies where she had progressive shortness of breath. Patient's pulse ox was low 70s upon EMS arrival. Patient was placed on 100% nonrebreather but the patient remained hypoxic. Patient was placed on BiPAP. And was transferred to ER. Patient was given breathing treatments while in the ER without much relief. Patient was subsequently intubated due to acute hypoxic respiratory failure. Currently patient is intubated and is in the medical intensive care unit. Chest x-ray showed no evidence of pneumothorax. Bilateral air space disease was present in the perihilar region in the lower lobes bilaterally right more than left. WC count was 22 on admission. Lactic acid 5.9 on admission 05/27/2018 Patient remains in critical condition. Is not improving much. And family considering comfort care 05/28/2018 pt presents with Hypoxia needed intubation eventually, follow up CXR showed no significant improvement , CT of the thorax with iv contrast: b/l pleural effusion , and others. crystallographer preferred no thoracosentasis, pt is been treated with high dose steroids, and levofloxacin and zosyn , pt is currently extubation improving slowly with guarded prognosis. pt is with possible MRSA pneumonia on iv vancomycin and has picc line for possible snf management , pt is still dyspneic and need high flow oxygen and BiPAP therapy at times . leukocytosis but pt is on steroids . Objective - Vital Signs Vital signs: Vital Signs Temp 98.3 F 05/29/18 08:00 Pulse 94 05/29/18 12:00 Resp 25 H 05/29/18 12:00 BP 148/57 05/29/18 12:00 Pulse Ox 97 05/29/18 13:21 Intake & Output 05/28/18 05/29/18 05/29/18 18:59 06:59 18:59 Intake Total 110 720 730 Output Total 1375 1370 600 Balance -1265 -650 130 Weight 104.4 kg Intake: IV 110 720 Magnesium Sulfate-D5w Pmx 200 1 gm In Dextrose/Water 1 100ml.bag @ 100 mls/hr IVPB Q1H [facility] Rx#: [id number] Potassium Chloride 10 meq 100 In Water For Injection 1 100ml.bag @ 100 mls/hr IVPB Q1H [facility] Rx#: [id number] Potassium Chloride 20 meq 100 In Water For Injection 1 100ml.bag @ 50 mls/hr IVPB Q2H [facility] Rx#: [id number] Sodium Chloride 0.9% 1, 110 70 000 ml @ 10 mls/hr IV . Q24H [facility] Rx#:[id number] Vancomycin 1,500 mg In 250 Sodium Chloride 0.9% 250 ml @ 125 mls/hr IVPB Q12HR [facility] Rx#:[id number] Oral 730 Output: Urine 1375 1370 600 Other: Voiding Method Indwelling Catheter Indwelling Catheter Indwelling Catheter ABP, PAP, CO, CI - Last Documented Arterial Blood Pressure - Exam GENERAL: The patient is alert and oriented x3, not in any acute distress. Obese. HEENT: Pupils are round and equally reacting to light. EOMI. No scleral icterus. No conjunctival pallor. Normocephalic, atraumatic. No pharyngeal erythema. No thyromegaly. CARDIOVASCULAR: S1 and S2 present. No murmurs, rubs, or gallops. PULMONARY: Gross breath sounds is in respiratory distress on BiPAP ABDOMEN: Soft, nontender, nondistended, normoactive bowel sounds. No palpable organomegaly. MUSCULOSKELETAL: No joint swelling or deformity. EXTREMITIES: No cyanosis, clubbing, or pedal edema. NEUROLOGICAL: Gross neurological examination did not reveal any focal deficits. SKIN: No rashes. - Labs CBC & Chem 7: 05/29/18 04:00 05/29/18 04:00 Labs: Abnormal Lab Results - Last 24 Hours (Table) 05/28/18 05/28/18 05/29/18 Range/Units 17:25 20:17 04:00 WBC 24.9 H (3.8-10.6) k/uL Hgb 11.1 L (11.4-16.0) gm/dL RDW 16.1 H (11.5-15.5) % Plt Count 103 L (150-450) k/uL Neutrophils # 23.6 H (1.3-7.7) k/uL Lymphocytes # 0.3 L (1.0-4.8) k/uL Chloride (98-107) mmol/L Carbon Dioxide (22-30) mmol/L BUN (7-17) mg/dL Glucose (74-99) mg/dL POC Glucose (mg/dL) 209 H 212 H (75-99) mg/dL Magnesium (1.6-2.3) mg/dL 05/29/18 05/29/18 05/29/18 Range/Units 04:00 07:33 12:09 WBC (3.8-10.6) k/uL Hgb (11.4-16.0) gm/dL RDW (11.5-15.5) % Plt Count (150-450) k/uL Neutrophils # (1.3-7.7) k/uL Lymphocytes # (1.0-4.8) k/uL Chloride 97 L (98-107) mmol/L Carbon Dioxide 40 H* (22-30) mmol/L BUN 47 H (7-17) mg/dL Glucose 212 H (74-99) mg/dL POC Glucose (mg/dL) 174 H 166 H (75-99) mg/dL Magnesium 2.6 H (1.6-2.3) mg/dL Assessment and Plan Plan: Assessment and Plan Plan: Acute hypoxic respiratory failure. Multifactorial secondary to bilateral lower lobe pneumonia ,CHF. extubated to BiPAP (Bilateral lower lobe pneumonia. Right greater than left), patient is on IV vancomycin patient the bronchial cultures are positive for staph aureus patient appears to have staph early pneumonia Acute cardio pulmonary arrest with brief loss of pulse status post CPR and a dose of epinephrine with return of spontaneous circulation. Lactic acidosis 5.9 on admission improving, recovered Sepsis secondary to pneumonia Obstructive sleep apnea on BiPAP at home Morbid obesity with BMI 44.9 with possible underlying obesity hypoventilation Acute on chronic CHF with systolic dysfunction as well as valvular heart disease History of right hemidiaphragmatic plication for unilateral paralysis History of TIA Nephrolithiasis Osteoarthritis Hypothyroidism with low free T4 level and elevated TSH. Uncontrolled History of atrial fibrillation. Paroxysmal. Currently in sinus rhythm on Rythmol GERD Gout status post bronchoscopy with lavage of right lower lobe No Code, no CPR as per family's wishes. Her overall prognosis and poor considering her obesity hypoventilation syndrome morbid obesity sleep apnea and possibility of COPD. Patient does use oxygen at home does use BiPAP at home at nighttime. Patient is on BiPAP at this point of time without BiPAP patient desaturates very quickly.
[2018-05-30 05:43] LABS: Anisocytosis Slight; HCT 32.7 % (34.0-46.0); HGB 10.2 gm/dL (11.4-16.0); MCH 28.9 pg (25.0-35.0); MCHC 31.3 g/dL (31.0-37.0); MCV 92.1 fL (80.0-100.0); Mean Platelet Volume 8.2; RBC 3.54 m/uL (3.80-5.40); RDW 17.2 % (11.5-15.5); WBC 19.6 k/uL (3.8-10.6)
[2018-05-30 05:57] LABS: Blood Urea Nitrogen 49 mg/dL (7-17); Calcium 8.3 mg/dL (8.4-10.2); Chloride 98 mmol/L (98-107); Glucose 175 mg/dL (74-99); Magnesium 2.3 mg/dL (1.6-2.3); Phosphorus 3.6 mg/dL (2.5-4.5); Potassium 3.9 mmol/L (3.5-5.1); Sodium 139 mmol/L (137-145)
[2018-05-30 05:59] LABS: INR 1.2 (<1.2); Prothrombin Time 11.8 sec (9.0-12.0)
[2018-05-30 06:02] LABS: Anion Gap 2 mmol/L
[2018-05-30] MEDS: LEVOTHYROXINE 50 MCG TAB PO SCH (06:10)
[2018-05-30 06:23] LABS: Carbon Dioxide 39 mmol/L (22-30)
[2018-05-30 06:28] LABS: Partial Thromboplastin Time 21.6 sec (22.0-30.0)
[2018-05-30 06:35] LABS: Glucose,Whole Blood 170 mg/dL (75-99)
[2018-05-30] MEDS ORDERED: POTASSIUM BICARBONATE/CIT AC 20 MEQ TABLET.EFF NG-TUBE SCH (07:00)
[2018-05-30] MEDS: IPRATROPIUM-ALBUTEROL 3 ML NEB INHALATION SCH ×4 (07:04→18:59)
[2018-05-30 07:29] LABS: Lymphocytes # (M) 0.39 k/uL (1.0-4.8); Monocytes # (M) 0.39 k/uL (0-1.0); Neutrophils # (M) 18.82 k/uL (1.3-7.7); Neutrophils % (M) 96 %; Nucleated Red Blood Cells 0 /100 WBC (0-0); Total Cells Counted 100
[2018-05-30 07:30] LABS: Poikilocytosis (M) Present
[2018-05-30 07:31] LABS: Platelet Count 64 k/uL (150-450)
[2018-05-30] MEDS: INSULIN ASPART 100 UNIT/ML 1 ML 10 ML VIAL SQ SCH ×4 (07:35→21:54)
[2018-05-30] MEDS: FUROSEMIDE 10 MG/ML 4 ML VIAL IV SCH (07:46)
[2018-05-30] MEDS: methylPREDNISolone SOD SUCCI 40 MG/ML 1 ML VIAL IV SCH ×3 (07:46→23:14)
[2018-05-30] MEDS: DILTIAZEM ORAL 30 MG TAB PO SCH ×3 (08:42→21:08)
[2018-05-30] MEDS: AMIODARONE 200 MG TAB PO SCH ×2 (08:42→20:05)
[2018-05-30] MEDS: PANTOPRAZOLE 40 MG TABLET PO SCH (08:43)
[2018-05-30 08:57] LABS: ABG HCO3 38 mmol/L (21-25); ABG Oxygen Saturation 96.3 % (94-97); ABG PCO2 53 mmHg (35-45); ABG PH 7.46 (7.35-7.45); ABG PO2 78 mmHg (83-108); ABG TCO2 39 mmol/L (19-24)
--- NOTE | 2018-05-30 08:59 | P.PN ---
Subjective Progress Note Date: 05/30/18 On today's evaluation of 05/30/2018, the patient is feeling better and the patient is awake and alert and following commands and answering questions appropriately. She has bilateral MRSA pneumonia for which she is on IV vancomycin. She is afebrile hemodynamically stable. She is on high flow oxygen at 45 liters and the patient's pulse ox is around 99%. Chest x-ray still showing right lower lobe pulmonary consolidation and elevation of the right hemidiaphragm. The patient is also being diuresis with IV Lasix 40 mg every 8 hours pH has been a negative fluid balance. The patient has been also receiving Diamox for underlying metabolic alkalosis. Her most recent serum bicarb is up to 39 and the creatinine is at 0.7. The white cell count is down to 19.6. She is tolerating her diet. She is a bit weak and she is working with physical therapy. She is utilizing BiPAP overnight at a pressure of 16/8 cm of water. Otherwise, she is developed a slow progress over the past few days. Objective - Vital Signs Vital signs: Vital Signs Temp 97.8 F 05/30/18 08:00 Pulse 92 05/30/18 08:00 Resp 25 H 05/30/18 08:00 BP 153/74 05/30/18 08:00 Pulse Ox 98 05/30/18 08:00 Intake & Output 05/29/18 05/30/18 05/30/18 18:59 06:59 18:59 Intake Total 1340 642 20 Output Total 1425 855 65 Balance -85 -213 -45 Weight 105.2 kg Intake: IV 110 392 20 Sodium Chloride 0.9% 1, 110 100 20 000 ml @ 10 mls/hr IV . Q24H [facility] Rx#:[id number] Vancomycin 1,500 mg In 125 Sodium Chloride 0.9% 250 ml @ 125 mls/hr IVPB Q12HR [facility] Rx#:[id number] Vancomycin 1,750 mg In 167 Sodium Chloride 0.9% 500 ml @ 167 mls/hr IVPB Q12H [facility] Rx#:[id number] Oral 1230 250 Output: Urine 1425 855 65 Other: Voiding Method Indwelling Catheter Indwelling Catheter ABP, PAP, CO, CI - Last Documented Arterial Blood Pressure 24/24 - Exam No acute distress, Nasal O2 in place and the patient on high flow oxygen at 45 L /m. Patient is resting comfortably in bed and the patient shows no signs of an acute respiratory distress at this point in time. She is able to speak of. Sentences. HEENT examination is grossly unremarkable. Mucous membranes are moist. Neck supple. Full range of motion. No adenopathy thyromegaly or neck vein distention. Cardiovascular examination reveals regular rhythm rate. S1-S2 normal. No S3 or S4. A loud systolic murmur of aortic stenosis is noted.. Lungs reveal severely diminished breath sounds throughout. There is coarse bilateral rhonchi and crackles. No wheezes. Breath sounds are equal bilaterally. In my opinion, this been no major changes in the way she sounds over the last couple of days. The breath sounds are diminished in the lung bases most on the left lung base. Abdomen soft. Bowel sounds are not noted. No masses or tenderness. Extremities are intact. No cyanosis clubbing or edema. Skin is without rash or lesion. Neurologic examination is brief but nonfocal. - Labs CBC & Chem 7: 05/30/18 05:20 05/30/18 05:20 Labs: Abnormal Lab Results - Last 24 Hours (Table) 05/29/18 05/29/18 05/29/18 Range/Units 12:09 17:32 21:08 WBC (3.8-10.6) k/uL RBC (3.80-5.40) m/uL Hgb (11.4-16.0) gm/dL Hct (34.0-46.0) % RDW (11.5-15.5) % Plt Count (150-450) k/uL Neutrophils # (Manual) (1.3-7.7) k/uL Lymphocytes # (Manual) (1.0-4.8) k/uL INR (<1.2) APTT (22.0-30.0) sec Carbon Dioxide (22-30) mmol/L BUN (7-17) mg/dL Glucose (74-99) mg/dL POC Glucose (mg/dL) 166 H 198 H 218 H (75-99) mg/dL Calcium (8.4-10.2) mg/dL 05/30/18 05/30/18 05/30/18 Range/Units 05:20 05:20 05:20 WBC 19.6 H (3.8-10.6) k/uL RBC 3.54 L (3.80-5.40) m/uL Hgb 10.2 L (11.4-16.0) gm/dL Hct 32.7 L (34.0-46.0) % RDW 17.2 H (11.5-15.5) % Plt Count 64 L (150-450) k/uL Neutrophils # (Manual) 18.82 H (1.3-7.7) k/uL Lymphocytes # (Manual) 0.39 L (1.0-4.8) k/uL INR 1.2 H (<1.2) APTT 21.6 L (22.0-30.0) sec Carbon Dioxide 39 H (22-30) mmol/L BUN 49 H (7-17) mg/dL Glucose 175 H (74-99) mg/dL POC Glucose (mg/dL) (75-99) mg/dL Calcium 8.3 L (8.4-10.2) mg/dL 05/30/18 Range/Units 06:33 WBC (3.8-10.6) k/uL RBC (3.80-5.40) m/uL Hgb (11.4-16.0) gm/dL Hct (34.0-46.0) % RDW (11.5-15.5) % Plt Count (150-450) k/uL Neutrophils # (Manual) (1.3-7.7) k/uL Lymphocytes # (Manual) (1.0-4.8) k/uL INR (<1.2) APTT (22.0-30.0) sec Carbon Dioxide (22-30) mmol/L BUN (7-17) mg/dL Glucose (74-99) mg/dL POC Glucose (mg/dL) 170 H (75-99) mg/dL Calcium (8.4-10.2) mg/dL Assessment and Plan Plan: Assessment 1 acute hypoxic respiratory failure with bilateral lower lobe pneumonia secondary to MRSA and the patient is currently on IV vancomycin. The patient is on high flow oxygen at 45 L/m nasal cannula and the chest x-ray shows slow but ongoing improvement 2 bilateral lower lobe pneumonia with airspace disease and consolidations. Pneumonia secondary to above and it's improving. 3 acute cardiac pulmonary arrest with brief loss in progress where the patient received CPR and received a dose of epinephrine with return of spontaneous circulation. Currently on no pressors. No signs of any hypoxic encephalopathy and the patient was given a brief sedation holiday and she was able to follow simple commands without any major difficulties 4 lactic acidosis secondary to above, improving and recovered 5 leukocytosis secondary to above, improving, and recovered 6 morbid obesity with a BMI of 43.4 7 obstructive sleep apnea 8 severe persistent bronchial asthma 9 history of right hemidiaphragmatic plication for unilateral paralysis 10 moderate to severe severe aortic stenosis and mitral stenosis, with a preserved LV function as evident on the echocardiogram 11 history of TIA 12 nephrolithiasis 13 gouty arthritis 14 hypothyroidism 13 hypertension 16 hyperlipidemia 17 history of atrial fibrillation , and the patient was taken Rythmol at home and currently she is on amiodarone 200 mg by mouth twice a day. 18 acid reflux 19 gout 20 degenerative arthritis 21 episodes of SVT, and currently the patient is atrial fibrillation with a controlled rate and she is currently on amiodarone 200 mg by mouth twice a day and Eliquis 5 mg by mouth twice a day for long-term anticoagulation. Her echocardiogram shows a preserved LV function. The patient is being diuresed with IV Lasix. Plan Wean down the FiO2 as tolerated. The patient will be dropped down to 40 L/m high flow nasal cannula and will going to drop it further to maintain a saturation above 90%. Repeat chest x-ray in the morning. Consider repeating the CAT scan of the chest to assess her progress specially the progress stays slow. Continued IV vancomycin. Insert a PICC line today. The patient will need also a blood gas to assess the acid base status. The patient will be cut down on her Lasix down to 40 mg once a day IV and was started Diamox for now pending blood gases for her acid base status. We'll continue to follow. She' ll be kept in ICU for another 24 hours.
[2018-05-30] MEDS ORDERED: FUROSEMIDE 10 MG/ML 4 ML VIAL IV SCH (09:00)
[2018-05-30] MEDS ORDERED: LIDOCAINE 1% INJ 10MG/ML (20 ML MDV) ONE (09:35)
[2018-05-30] MEDS ORDERED: LIDOCAINE 2% INJ 20 MG/ML SQ ONE ×2 (09:56→10:00)
--- NOTE | 2018-05-30 10:13 | PN ---
PROGRESS NOTE Mrs. Tuttle is a 77-year-old female who presented with respiratory failure and evidence of pneumonia with MRSA. She had atrial fibrillation. She has history of hypertrophic cardiomyopathy. She is feeling better today. She continues to be tired, but she is not having any chest pain. Her breathing is gradually improving. She denies any dizziness or palpitation. She denies any nausea. Her ventricular response has been controlled. She continues to be on amiodarone 400 mg twice a day, Eliquis 5 mg twice a day, diltiazem 30 mg twice a day, and Lasix 40 mg IV daily. PHYSICAL EXAMINATION: Blood pressure 132/60 with the heart rate in the 90s. LUNGS: With decreased breath sounds at the right base. HEART: Irregular, irregular, S1, S2. No S3 with systolic murmur at the base, 3/6. No diastolic murmur. ABDOMEN: Soft, obese, nontender. EXTREMITIES: To 1+ edema. LAB DATA: Hemoglobin of 10.2, BUN and creatinine 49 and 0.7. IMPRESSION: 1. Respiratory failure with methicillin-resistant Staphylococcus aureus infection and pneumonia with slow improvement. 2. Atrial fibrillation persistent at this time, anticoagulated. 3. Hypertrophic cardiomyopathy. 4. Obesity. 5. History of hyperlipidemia. 6. Hypertension. RECOMMENDATION: From the cardiac standpoint, we will continue on present therapy. Continue to increase her level of activity gradually and depending on her progress, further recommendation will be made. MMDERICKL / AMBERLY: [id number] /
--- NOTE | 2018-05-30 10:45 | XR ---
EXAMINATION TYPE: XR chest 1V portable DATE OF EXAM: 05/30/2018 COMPARISON: 05/30/2018 at 10:19 AM HISTORY: Line placement. TECHNIQUE: Single frontal view of the chest is obtained. FINDINGS: Again the right-sided PICC is an appropriately placed extending into the right neck and of f of the [id number]. Below findings are unchanged from the prior. Newly developed patchy suprahilar opacities are seen in addition to the previously identified obscura tion of the costophrenic angles, hemidiaphragms and bibasilar airspace disease. Cardia mediastinal si lhouette is partially obscured but stable. Osseous structures demonstrate diffuse osseous demineraliz ation and degenerative changes. Left-sided PICC from a subclavian approach is unchanged terminating i n the superior vena cava just proximal to the cavoatrial junction. IMPRESSION: 1. Right PICC extending into the right neck extending off the superior [id number], inappropriately placed. Replacement is recommended. 2. Unchanged lung findings in comparison to the recent prior.
--- NOTE | 2018-05-30 10:45 | XR ---
EXAMINATION TYPE: XR chest 1V portable DATE OF EXAM: 05/30/2018 COMPARISON: 05/30/2018 at 10:22 AM HISTORY: Line placement TECHNIQUE: Single frontal view of the chest is obtained. FINDINGS: As seen on the prior exam the right-sided PICC is an appropriately placed extending into t he right neck and off of the [id number]. Below findings are unchanged from the prior. Newly developed patchy suprahilar opacities are seen in addition to the previously identified obscura tion of the costophrenic angles, hemidiaphragms and bibasilar airspace disease. Cardia mediastinal si lhouette is partially obscured but stable. Osseous structures demonstrate diffuse osseous demineraliz ation and degenerative changes. Left-sided PICC from a subclavian approach is unchanged terminating i n the superior vena cava just proximal to the cavoatrial junction. IMPRESSION: 1. Right PICC extending into the right neck extending off the superior [id number], inappropriately placed. Replacement is recommended. 2. Unchanged lung findings in comparison to the recent prior.
--- NOTE | 2018-05-30 10:45 | XR ---
EXAMINATION TYPE: XR chest 1V portable DATE OF EXAM: 05/30/2018 COMPARISON: 05/29/2018 HISTORY: Line placement TECHNIQUE: Single frontal view of the chest is obtained. FINDINGS: Newly developed patchy suprahilar opacities are seen in addition to the previously identif ied obscuration of the costophrenic angles, hemidiaphragms and bibasilar airspace disease. Cardia med iastinal silhouette is partially obscured but stable. Osseous structures demonstrate diffuse osseous demineralization and degenerative changes. Left-sided PICC from a subclavian approach is unchanged te rminating in the superior vena cava just proximal to the cavoatrial junction. Right-sided PICC line extends into the neck and off of the superior [id number], an appropriately p laced. IMPRESSION: 1. Right PICC extending into the right neck extending off the superior [id number]-rt-[id number], inappropriately placed. Replacement is recommended. 2. New upper lung opacities in addition to the previously seen bibasilar opacities and small pleural effusions. Progressive congestive heart failure or new multifocal pneumonia are considerations.
--- NOTE | 2018-05-30 10:46 | XR ---
EXAMINATION TYPE: XR chest 1V portable DATE OF EXAM: 05/30/2018 COMPARISON: 05/30/2018 HISTORY: PICC line placement TECHNIQUE: Single frontal view of the chest is obtained. FINDINGS: PICC line again appears to extend cephalad into the soft tissue the neck. Left-sided subcl piedad catheter seen. Diffuse bilateral airspace disease with pleural effusion correlate for diffuse p neumonia versus pulmonary edema. Arthropathy of the shoulders noted. Atherosclerotic change aorta and cardiomegaly. IMPRESSION: Stable diffuse airspace disease. PICC line appears to extend into the jugular vein and i s to be repositioned.
[2018-05-30] MEDS ORDERED: IOPAMIDOL-370 50ML BTL INJ ONE (11:02)
--- NOTE | 2018-05-30 11:36 | IR ---
PICC LINE PLACEMENT: HISTORY: Infection requiring long-term antibiotic therapy PROCEDURE: Ultrasound and fluoroscopic guidance of PICC line placement. COMPLICATIONS: None ANESTHESIA: 1. 1% Lidocaine locally. FINDINGS/TECHNIQUE: The procedure was explained to the patient. The risks, complications, benefits and alternatives were discussed and any questions were answered. Informed consent was obtained. The patient was placed supine on the fluoroscopic table and prepped and draped in the usual sterile fas ion. Utilizing a 21 gauge needle and sonographic and fluoroscopic guidance, access in the vein was achieved and there is placement of a 0.018 guidewire. The vein is patent. A 4-F sheath was placed o rebecca the guidewire. The guidewire and dilator were removed and a 4-F. PICC line was placed through th e sheath with the tip at the level of the SVC. The sheath was removed, the catheter was flushed and sutured into position. The patient was stable throughout the procedure and remained stable upon disc harge from the Department of Radiology. The vein puncture was patent under ultrasound. A salmon scale image was obtained to document patency of the vein punctured. All elements of the maximal barrier technique were utilized. FLUOROSCOPY TIME: 1.2 minutes, one image submitted. IMPRESSION: Successful PICC line placement under ultrasound and fluoroscopic guidance.
[2018-05-30] MEDS: BENZOCAINE SPRAY 1 CAN MUCOUS MEM PRN (12:04)
[2018-05-30] MEDS: SODIUM CHLORIDE 0.9% 1,000 ML IV SCH (12:04)
[2018-05-30 12:15] LABS: Glucose,Whole Blood 166 mg/dL (75-99)
--- NOTE | 2018-05-30 12:18 | P.PN ---
Subjective Patient resting in bed and just returned from PICC line insertion. Does intermittent BiPAP use. Objective - Vital Signs Vital signs: Vital Signs Temp 97.8 F 05/30/18 08:00 Pulse 84 05/30/18 11:47 Resp 24 05/30/18 10:00 BP 154/56 05/30/18 10:00 Pulse Ox 93 L 05/30/18 10:00 Intake & Output 05/29/18 05/30/18 05/30/18 18:59 06:59 18:59 Intake Total 1340 642 40 Output Total 1425 855 390 Balance -85 -213 -350 Weight 105.2 kg Intake: IV 110 392 40 Sodium Chloride 0.9% 1, 110 100 40 000 ml @ 10 mls/hr IV . Q24H [facility] Rx#:[id number] Vancomycin 1,500 mg In 125 Sodium Chloride 0.9% 250 ml @ 125 mls/hr IVPB Q12HR [facility] Rx#:[id number] Vancomycin 1,750 mg In 167 Sodium Chloride 0.9% 500 ml @ 167 mls/hr IVPB Q12H [facility] Rx#:[id number] Oral 1230 250 Output: Urine 1425 855 390 Other: Voiding Method Indwelling Catheter Indwelling Catheter Indwelling Catheter ABP, PAP, CO, CI - Last Documented Arterial Blood Pressure - Constitutional General appearance: Present: obese - EENT Eyes: Present: PERRLA Ears: bilateral: normal - Neck Neck: Present: normal ROM - Respiratory Respiratory: bilateral: diminished - Cardiovascular Rhythm: irregularly irregular Abnormal Heart Sounds: Present: systolic murmur - Gastrointestinal General gastrointestinal: Present: soft - Integumentary Integumentary: Present: normal - Neurologic Neurologic: Present: CNII-XII intact - Musculoskeletal Musculoskeletal: Present: generalized weakness - Psychiatric Psychiatric: Present: A&O x's 3, appropriate affect, intact judgment & insight - Labs CBC & Chem 7: 05/30/18 05:20 05/30/18 05:20 Labs: Abnormal Lab Results - Last 24 Hours (Table) 05/29/18 05/29/18 05/30/18 Range/Units 17:32 21:08 05:20 WBC (3.8-10.6) k/uL RBC (3.80-5.40) m/uL Hgb (11.4-16.0) gm/dL Hct (34.0-46.0) % RDW (11.5-15.5) % Plt Count (150-450) k/uL Neutrophils # (Manual) (1.3-7.7) k/uL Lymphocytes # (Manual) (1.0-4.8) k/uL INR 1.2 H (<1.2) APTT 21.6 L (22.0-30.0) sec ABG pH (7.35-7.45) ABG pCO2 (35-45) mmHg ABG pO2 (83-108) mmHg ABG HCO3 (21-25) mmol/L ABG Total CO2 (19-24) mmol/L Carbon Dioxide (22-30) mmol/L BUN (7-17) mg/dL Glucose (74-99) mg/dL POC Glucose (mg/dL) 198 H 218 H (75-99) mg/dL Calcium (8.4-10.2) mg/dL 05/30/18 05/30/18 05/30/18 Range/Units 05:20 05:20 06:33 WBC 19.6 H (3.8-10.6) k/uL RBC 3.54 L (3.80-5.40) m/uL Hgb 10.2 L (11.4-16.0) gm/dL Hct 32.7 L (34.0-46.0) % RDW 17.2 H (11.5-15.5) % Plt Count 64 L (150-450) k/uL Neutrophils # (Manual) 18.82 H (1.3-7.7) k/uL Lymphocytes # (Manual) 0.39 L (1.0-4.8) k/uL INR (<1.2) APTT (22.0-30.0) sec ABG pH (7.35-7.45) ABG pCO2 (35-45) mmHg ABG pO2 (83-108) mmHg ABG HCO3 (21-25) mmol/L ABG Total CO2 (19-24) mmol/L Carbon Dioxide 39 H (22-30) mmol/L BUN 49 H (7-17) mg/dL Glucose 175 H (74-99) mg/dL POC Glucose (mg/dL) 170 H (75-99) mg/dL Calcium 8.3 L (8.4-10.2) mg/dL 05/30/18 Range/Units 08:49 WBC (3.8-10.6) k/uL RBC (3.80-5.40) m/uL Hgb (11.4-16.0) gm/dL Hct (34.0-46.0) % RDW (11.5-15.5) % Plt Count (150-450) k/uL Neutrophils # (Manual) (1.3-7.7) k/uL Lymphocytes # (Manual) (1.0-4.8) k/uL INR (<1.2) APTT (22.0-30.0) sec ABG pH 7.46 H (7.35-7.45) ABG pCO2 53 H (35-45) mmHg ABG pO2 78 L (83-108) mmHg ABG HCO3 38 H (21-25) mmol/L ABG Total CO2 39 H (19-24) mmol/L Carbon Dioxide (22-30) mmol/L BUN (7-17) mg/dL Glucose (74-99) mg/dL POC Glucose (mg/dL) (75-99) mg/dL Calcium (8.4-10.2) mg/dL - Imaging and Cardiology Chest x-ray: report reviewed Assessment and Plan Plan: Assessment Acute hypoxic respiratory failure secondary to pneumonia with sepsis Post cardiac arrest History of sleep apnea on BiPAP at home Morbid obesity Acute on chronic congestive heart failure with systolic dysfunction as well as valvular disease History of right humeral diaphragmatic plication History of TIA Osteoarthritis Hypothyroidism Paroxysmal atrial fibrillation Hypotension Pleural effusion Post bronchoscopy positive MRSA History of GERD PICC line insertion Plan Continue consultation with pulmonology cardiology
[2018-05-30 16:48] LABS: Glucose,Whole Blood 172 mg/dL (75-99)
[2018-05-30] MEDS: APIXABAN 5 MG TAB PO SCH (18:27)
[2018-05-30 20:24] LABS: Glucose,Whole Blood 264 mg/dL (75-99)
[2018-05-30] MEDS: VANCOMYCIN 1,500 MG in SODIUM CHLORIDE 0.9% 250 ML IVPB SCH (21:04)
[2018-05-30 21:53] LABS: Glucose,Whole Blood 225 mg/dL (75-99)
[2018-05-30] MEDS: ALPRAZolam 0.25 MG TAB PO PRN (23:05)
[2018-05-30] MEDS: HYDROmorphone 2 MG TAB PO PRN (23:05)
[2018-05-31 05:57] LABS: Anisocytosis Slight; Basophils % (A) 0 %; Eosinophils % (A) 0 %; HCT 32.9 % (34.0-46.0); HGB 10.4 gm/dL (11.4-16.0); Hypochromasia Slight; Lymphocytes # (A) 0.2 k/uL (1.0-4.8); Lymphocytes % (A) 1 %; MCH 29.4 pg (25.0-35.0); MCHC 31.5 g/dL (31.0-37.0); MCV 93.6 fL (80.0-100.0); Macrocytosis Slight; Monocytes # (A) 0.7 k/uL (0-1.0); Monocytes % (A) 3 %; Neutrophils # (A) 22.6 k/uL (1.3-7.7); Neutrophils % (A) 95 %; RBC 3.52 m/uL (3.80-5.40); RDW 17.8 % (11.5-15.5); WBC 23.7 k/uL (3.8-10.6)
[2018-05-31 06:06] LABS: INR 1.2 (<1.2)
[2018-05-31 06:07] LABS: Prothrombin Time 11.4 sec (9.0-12.0)
[2018-05-31 06:11] LABS: Blood Urea Nitrogen 62 mg/dL (7-17); Calcium 8.7 mg/dL (8.4-10.2); Chloride 96 mmol/L (98-107); Glucose 195 mg/dL (74-99); Magnesium 2.4 mg/dL (1.6-2.3); Phosphorus 3.5 mg/dL (2.5-4.5); Platelet Count 66 k/uL (150-450); Potassium 4.2 mmol/L (3.5-5.1); Sodium 138 mmol/L (137-145)
[2018-05-31 06:13] LABS: Partial Thromboplastin Time 20.1 sec (22.0-30.0)
[2018-05-31 06:18] LABS: Anion Gap -2 mmol/L
[2018-05-31 06:30] LABS: Carbon Dioxide 44 mmol/L (22-30)
[2018-05-31] MEDS: LEVOTHYROXINE 50 MCG TAB PO SCH (06:38)
[2018-05-31] MEDS: IPRATROPIUM-ALBUTEROL 3 ML NEB INHALATION SCH ×4 (07:17→19:17)
[2018-05-31 07:25] LABS: Glucose,Whole Blood 200 mg/dL (75-99)
[2018-05-31] MEDS ORDERED: RX INFO: IV CONTRAST WAS GIVEN 1 EACH MISC MISCELLANE PRN (07:52)
--- NOTE | 2018-05-31 08:06 | P.PN ---
Subjective Progress Note Date: 05/31/18 On today's evaluation of 05/30/2018, the patient is feeling better and the patient is awake and alert and following commands and answering questions appropriately. She has bilateral MRSA pneumonia for which she is on IV vancomycin. She is afebrile hemodynamically stable. She is on high flow oxygen at 45 liters and the patient's pulse ox is around 99%. Chest x-ray still showing right lower lobe pulmonary consolidation and elevation of the right hemidiaphragm. The patient is also being diuresis with IV Lasix 40 mg every 8 hours pH has been a negative fluid balance. The patient has been also receiving Diamox for underlying metabolic alkalosis. Her most recent serum bicarb is up to 39 and the creatinine is at 0.7. The white cell count is down to 19.6. She is tolerating her diet. She is a bit weak and she is working with physical therapy. She is utilizing BiPAP overnight at a pressure of 16/8 cm of water. Otherwise, she is developed a slow progress over the past few days. On today's evaluation of 05/31/2018, the patient is still in hypoxic respiratory failure and the patient is developed diffuse bilateral pulmonary infiltrates and this was noted on a chest x-ray that was done following the insertion of the PICC line catheter. The patient remains on IV vancomycin regarding MRSA pneumonia. The patient is hemodynamically stable. The patient is on high flow oxygen at 55%, and her pulse ox in the order of 97%. She is a bit more short of breath compared to yesterday. I stopped her Diamox yesterday and I cut down the Lasix to once a day. She remains in a negative fluid balance. She is a bit alkalotic with a serum bicarb of 44 on today's blood work. White cell count is also up to 23.7. The patient is being treated with IV vancomycin. Her cardiac rhythm is atrial fibrillation. The patient is on amiodarone 200 mg by mouth twice a day. The patient is on oral Cardizem 30 mg by mouth 3 times a day. The patient is also on bronchodilators and systemic steroids. Objective - Vital Signs Vital signs: Vital Signs Temp 98.1 F 05/31/18 00:00 Pulse 95 05/31/18 07:33 Resp 24 05/31/18 07:00 BP 164/63 05/31/18 07:00 Pulse Ox 94 L 05/31/18 07:00 Intake & Output 05/30/18 05/31/18 05/31/18 18:59 06:59 18:59 Intake Total 120 600 10 Output Total 860 411 40 Balance -740 189 -30 Weight 105.4 kg Intake: IV 120 350 10 Sodium Chloride 0.9% 1, 120 100 10 000 ml @ 10 mls/hr IV . Q24H NIRANJAN Rx#:[id number] Vancomycin 1,500 mg In 250 Sodium Chloride 0.9% 250 ml @ 125 mls/hr IVPB Q24H NIRANJAN Rx#:[id number] Oral 250 Output: Urine 860 411 40 Other: Voiding Method Indwelling Catheter Indwelling Catheter ABP, PAP, CO, CI - Last Documented Arterial Blood Pressure - Exam No acute distress, Nasal O2 in place and the patient on high flow oxygen at 45 L /m. Patient is resting comfortably in bed and the patient shows no signs of an acute respiratory distress at this point in time. She is able to speak of. Sentences. HEENT examination is grossly unremarkable. Mucous membranes are moist. Neck supple. Full range of motion. No adenopathy thyromegaly or neck vein distention. Cardiovascular examination reveals regular rhythm rate. S1-S2 normal. No S3 or S4. A loud systolic murmur of aortic stenosis is noted.. Lungs reveal severely diminished breath sounds throughout. There is coarse bilateral rhonchi and crackles. No wheezes. Breath sounds are equal bilaterally. In my opinion, this been no major changes in the way she sounds over the last couple of days. The breath sounds are diminished in the lung bases most on the left lung base. Abdomen soft. Bowel sounds are not noted. No masses or tenderness. Extremities are intact. No cyanosis clubbing or edema. Skin is without rash or lesion. Neurologic examination is brief but nonfocal. - Labs CBC & Chem 7: 05/31/18 05:10 05/31/18 05:10 Labs: Abnormal Lab Results - Last 24 Hours (Table) 05/30/18 05/30/18 05/30/18 Range/Units 08:49 12:14 16:46 WBC (3.8-10.6) k/uL RBC (3.80-5.40) m/uL Hgb (11.4-16.0) gm/dL Hct (34.0-46.0) % RDW (11.5-15.5) % Plt Count (150-450) k/uL Neutrophils # (1.3-7.7) k/uL Lymphocytes # (1.0-4.8) k/uL INR (<1.2) APTT (22.0-30.0) sec ABG pH 7.46 H (7.35-7.45) ABG pCO2 53 H (35-45) mmHg ABG pO2 78 L (83-108) mmHg ABG HCO3 38 H (21-25) mmol/L ABG Total CO2 39 H (19-24) mmol/L Chloride (98-107) mmol/L Carbon Dioxide (22-30) mmol/L BUN (7-17) mg/dL Glucose (74-99) mg/dL POC Glucose (mg/dL) 166 H 172 H (75-99) mg/dL Magnesium (1.6-2.3) mg/dL 05/30/18 05/30/18 05/31/18 Range/Units 20:23 21:52 05:10 WBC (3.8-10.6) k/uL RBC (3.80-5.40) m/uL Hgb (11.4-16.0) gm/dL Hct (34.0-46.0) % RDW (11.5-15.5) % Plt Count (150-450) k/uL Neutrophils # (1.3-7.7) k/uL Lymphocytes # (1.0-4.8) k/uL INR (<1.2) APTT (22.0-30.0) sec ABG pH (7.35-7.45) ABG pCO2 (35-45) mmHg ABG pO2 (83-108) mmHg ABG HCO3 (21-25) mmol/L ABG Total CO2 (19-24) mmol/L Chloride 96 L (98-107) mmol/L Carbon Dioxide 44 H* (22-30) mmol/L BUN 62 H (7-17) mg/dL Glucose 195 H (74-99) mg/dL POC Glucose (mg/dL) 264 H 225 H (75-99) mg/dL Magnesium 2.4 H (1.6-2.3) mg/dL 0705/31/18 05/31/18 Range/Units 05:10 05:10 07:24 WBC 23.7 H (3.8-10.6) k/uL RBC 3.52 L (3.80-5.40) m/uL Hgb 10.4 L (11.4-16.0) gm/dL Hct 32.9 L (34.0-46.0) % RDW 17.8 H (11.5-15.5) % Plt Count 66 L (150-450) k/uL Neutrophils # 22.6 H (1.3-7.7) k/uL Lymphocytes # 0.2 L (1.0-4.8) k/uL INR 1.2 H (<1.2) APTT 20.1 L (22.0-30.0) sec ABG pH (7.35-7.45) ABG pCO2 (35-45) mmHg ABG pO2 (83-108) mmHg ABG HCO3 (21-25) mmol/L ABG Total CO2 (19-24) mmol/L Chloride (98-107) mmol/L Carbon Dioxide (22-30) mmol/L BUN (7-17) mg/dL Glucose (74-99) mg/dL POC Glucose (mg/dL) 200 H (75-99) mg/dL Magnesium (1.6-2.3) mg/dL Microbiology - Last 24 Hours (Table) 05/19/18 11:15 Acid Fast Bacilli Smear - Final Bronchial Washings - Right Acid Fast Bacilli Culture - Preliminary 05/19/18 11:15 Fungal Culture - Preliminary Bronchial Washings - Right Assessment and Plan Plan: Assessment 1 acute hypoxic respiratory failure with bilateral lower lobe pneumonia secondary to MRSA and the patient is currently on IV vancomycin. On today's evaluation, the patient has developed worsening and [place] pulmonate infiltrates and her oxygen requirements have gone up to 55% high flow oxygen. Based on that, the patient will need a CAT scan of the chest for further investigation of these better pneumonias/infiltration. Rule out superinfection with gram-negative. The patient is on IV vancomycin. 2 bilateral lower lobe pneumonia with airspace disease and consolidations. 3 acute cardiac pulmonary arrest with brief loss in progress where the patient received CPR and received a dose of epinephrine with return of spontaneous circulation. Currently on no pressors. No signs of any hypoxic encephalopathy and the patient was given a brief sedation holiday and she was able to follow simple commands without any major difficulties 4 lactic acidosis secondary to above, improving and recovered 5 leukocytosis secondary to above 6 morbid obesity with a BMI of 43.4 7 obstructive sleep apnea 8 severe persistent bronchial asthma 9 history of right hemidiaphragmatic plication for unilateral paralysis 10 moderate to severe severe aortic stenosis and mitral stenosis, with a preserved LV function as evident on the echocardiogram 11 history of TIA 12 nephrolithiasis 13 gouty arthritis 14 hypothyroidism 13 hypertension 16 hyperlipidemia 17 history of atrial fibrillation , and the patient was taken Rythmol at home and currently she is on amiodarone 200 mg by mouth twice a day. 18 acid reflux 19 gout 20 degenerative arthritis 21 episodes of SVT, and currently the patient is atrial fibrillation with a controlled rate and she is currently on amiodarone 200 mg by mouth twice a day and Eliquis 5 mg by mouth twice a day for long-term anticoagulation. Her echocardiogram shows a preserved LV function. The patient is being diuresed with IV Lasix. Plan Continue IV vancomycin. Proceed with a CAT scan of the chest to characterized the bilateral pulmonary infiltration. Suspect this superinfection on top of the MRSA pneumonia especially the x-ray findings are worse on yesterday's evaluation. Increase the Lasix again to 40 mg twice a day. Obtain a blood gas to assess the acid base status. Continue the high flow oxygen at 55%. We'll discuss the case with cardiology. We'll continue to follow. Condition remains critical.
--- NOTE | 2018-05-31 08:38 | PN ---
PROGRESS NOTE Mrs. Tuttle is a 77-year-old female who presented with respiratory failure and required mechanical ventilation, was diagnosed with MRSA pneumonia. She has continued to be dyspneic although not significant different than yesterday. She has no significant cough. No nausea, no vomiting. She continues to be in atrial fibrillation. She has no chest pain, no palpitation. She has no nausea. The PICC line was placed yesterday. She continued be on amiodarone 200 mg twice a day, Eliquis 5 mg twice a day, diltiazem 30 mg 3 times a day. Her diuretics have been switched to 40 mg once a day of IV Lasix. PHYSICAL EXAMINATION: Blood pressure 114/50 with the heart rate in the 80s. LUNGS: With decreased air exchange, no wheezes. HEART: Irregular, irregular. S1, S2 with systolic murmur at the base. No diastolic murmur. ABDOMEN: Soft, nontender, obese. EXTREMITIES: Trace edema. LAB DATA: Lab data revealed a BUN and creatinine of 62 and 0.7. Carbon dioxide of 44. Potassium 4.2. Hemoglobin 10.4, white blood cells 23.7. Her chest x-ray shows increase in the infiltrate with airspace disease bilaterally. IMPRESSION: 1. Pneumonia with respiratory failure and methicillin-resistant Staphylococcus aureus infection. 2. Atrial fibrillation, persistent, anticoagulated. 3. Hypertrophic cardiomyopathy. 4. Hyperlipidemia. 5. Hypertension. RECOMMENDATION: From the cardiac standpoint, we will continue present therapy. Continue to follow closely. She may benefit from further evaluation of her chest, maybe by CAT scan. Depending on her progress, further recommendation will be made. MMODL / IJN: [id number] /
[2018-05-31] MEDS: INSULIN ASPART 100 UNIT/ML 1 ML 10 ML VIAL SQ SCH ×4 (08:50→21:43)
[2018-05-31] MEDS: methylPREDNISolone SOD SUCCI 40 MG/ML 1 ML VIAL IV SCH ×2 (08:50→18:10)
[2018-05-31] MEDS: FUROSEMIDE 10 MG/ML 4 ML VIAL IV SCH ×2 (08:51→21:43)
[2018-05-31] MEDS: PANTOPRAZOLE 40 MG TABLET PO SCH (08:51)
[2018-05-31] MEDS: DILTIAZEM ORAL 30 MG TAB PO SCH ×3 (08:51→21:43)
[2018-05-31] MEDS: AMIODARONE 200 MG TAB PO SCH ×2 (08:51→21:42)
[2018-05-31] MEDS: SODIUM CHLORIDE 0.9% 1,000 ML IV SCH (10:46)
--- NOTE | 2018-05-31 11:56 | P.PN ---
Subjective Patient continues on BiPAP. Patient required today less active. Pulmonology schedule CT scan to rule out superimposed infection. To continue consultation with cardiology Objective - Vital Signs Vital signs: Vital Signs Temp 98.1 F 05/31/18 08:00 Pulse 78 05/31/18 11:42 Resp 20 05/31/18 11:00 BP 137/46 05/31/18 11:00 Pulse Ox 99 05/31/18 11:00 Intake & Output 05/30/18 05/31/18 05/31/18 18:59 06:59 18:59 Intake Total 120 600 500 Output Total 860 411 655 Balance -740 189 -155 Weight 105.4 kg Intake: IV 120 350 50 Sodium Chloride 0.9% 1, 120 100 50 000 ml @ 10 mls/hr IV . Q24H NIRANJAN Rx#:[id number] Vancomycin 1,500 mg In 250 Sodium Chloride 0.9% 250 ml @ 125 mls/hr IVPB Q24H NIRANJAN Rx#:[id number] Oral 250 450 Output: Urine 860 411 655 Other: Voiding Method Indwelling Catheter Indwelling Catheter Indwelling Catheter ABP, PAP, CO, CI - Last Documented Arterial Blood Pressure - Constitutional General appearance: Present: mild distress, morbidly obese - EENT Eyes: Present: PERRLA Ears: bilateral: normal - Neck Neck: Present: normal ROM - Respiratory Respiratory: bilateral: diminished - Cardiovascular Rhythm: irregularly irregular Abnormal Heart Sounds: Present: systolic murmur - Gastrointestinal General gastrointestinal: Present: soft - Integumentary Integumentary: Present: normal - Neurologic Neurologic: Present: CNII-XII intact - Psychiatric Psychiatric: Present: A&O x's 3, appropriate affect, intact judgment & insight - Labs CBC & Chem 7: 05/31/18 05:10 05/31/18 05:10 Labs: Abnormal Lab Results - Last 24 Hours (Table) 05/30/18 05/30/18 05/30/18 Range/Units 12:14 16:46 20:23 WBC (3.8-10.6) k/uL RBC (3.80-5.40) m/uL Hgb (11.4-16.0) gm/dL Hct (34.0-46.0) % RDW (11.5-15.5) % Plt Count (150-450) k/uL Neutrophils # (1.3-7.7) k/uL Lymphocytes # (1.0-4.8) k/uL INR (<1.2) APTT (22.0-30.0) sec Chloride (98-107) mmol/L Carbon Dioxide (22-30) mmol/L BUN (7-17) mg/dL Glucose (74-99) mg/dL POC Glucose (mg/dL) 166 H 172 H 264 H (75-99) mg/dL Magnesium (1.6-2.3) mg/dL 05/30/18 05/31/18 05/31/18 Range/Units 21:52 05:10 05:10 WBC 23.7 H (3.8-10.6) k/uL RBC 3.52 L (3.80-5.40) m/uL Hgb 10.4 L (11.4-16.0) gm/dL Hct 32.9 L (34.0-46.0) % RDW 17.8 H (11.5-15.5) % Plt Count 66 L (150-450) k/uL Neutrophils # 22.6 H (1.3-7.7) k/uL Lymphocytes # 0.2 L (1.0-4.8) k/uL INR (<1.2) APTT (22.0-30.0) sec Chloride 96 L (98-107) mmol/L Carbon Dioxide 44 H* (22-30) mmol/L BUN 62 H (7-17) mg/dL Glucose 195 H (74-99) mg/dL POC Glucose (mg/dL) 225 H (75-99) mg/dL Magnesium 2.4 H (1.6-2.3) mg/dL 05/31/18 05/31/18 Range/Units 05:10 07:24 WBC (3.8-10.6) k/uL RBC (3.80-5.40) m/uL Hgb (11.4-16.0) gm/dL Hct (34.0-46.0) % RDW (11.5-15.5) % Plt Count (150-450) k/uL Neutrophils # (1.3-7.7) k/uL Lymphocytes # (1.0-4.8) k/uL INR 1.2 H (<1.2) APTT 20.1 L (22.0-30.0) sec Chloride (98-107) mmol/L Carbon Dioxide (22-30) mmol/L BUN (7-17) mg/dL Glucose (74-99) mg/dL POC Glucose (mg/dL) 200 H (75-99) mg/dL Magnesium (1.6-2.3) mg/dL Microbiology - Last 24 Hours (Table) 05/19/18 11:15 Acid Fast Bacilli Smear - Final Bronchial Washings - Right Acid Fast Bacilli Culture - Preliminary 05/19/18 11:15 Fungal Culture - Preliminary Bronchial Washings - Right - Imaging and Cardiology Chest x-ray: report reviewed Assessment and Plan Plan: Assessment Acute hypoxic respiratory failure multifactorial bilateral pneumonia extubated to BiPAP History of acute cardiopulmonary arrest Sepsis secondary to pneumonia Obstructive sleep apnea on BiPAP at home morbid obesity BMI 44.9 acute on chronic congestive heart failure with systolic dysfunction as well as valvular heart disease history of right negro-diaphragmatic plication with a unilateral paralysis history of TIA osteoarthritis hypothyroidism Paroxysmal atrial fibrillation GERD gout hypotension pleural effusion post bronchoscopy with positive MRSA Plan Continue consultation with cardiology and pulmonology patient is on vancomycin Computed tomography scan of chest ordered Patient remains no code no CPR per family and patient request
[2018-05-31 12:25] LABS: ABG Base Excess 17.9 mmol/L; ABG Oxygen Saturation 98.5 % (94-97); ABG PCO2 52 mmHg (35-45); ABG PH 7.51 (7.35-7.45); ABG PO2 93 mmHg (83-108); ABG TCO2 43 mmol/L (19-24)
[2018-05-31 12:35] LABS: Glucose,Whole Blood 189 mg/dL (75-99)
[2018-05-31 12:36] LABS: ABG HCO3 41 mmol/L (21-25)
--- NOTE | 2018-05-31 15:44 | CT ---
EXAMINATION TYPE: CT chest w con DATE OF EXAM: 05/31/2018 COMPARISON: 05/15/2018 HISTORY: Respiratory failure and chronic congestive heart failure CT DLP: 791.1 mGycm, Automated exposure control for dose reduction was used. CONTRAST: Performed injected with 100 mL of Isovue 300. TECHNIQUE: Axial images were obtained at 5 mm thick sections. Reconstructed images are reviewed on [employer] computer in the coronal plane. Beam hardening artifact from external artifact causing some limitat ion on the evaluation. FINDINGS: Portion of the thyroid visualized is normal. Patchy infiltrates are present bilaterally, likely on the basis of pulmonary edema. ARDS should be co nsidered. Small bilateral pleural effusions are present. Some compressive atelectasis is adjacent to the lung b ases and pleural effusions. This has improved somewhat from comparison. No enlarged mediastinal or hilar adenopathy is evident. The ascending aorta diameter at the level o f the main pulmonary artery is 4.0 cm. The main pulmonary artery diameter at the bifurcation is 2.[address] sections are obtained through the upper abdomen. Abdomen is essentially unremarkable. Beronica ent is status post extubation and removal of the nasogastric tube. IMPRESSIONS: 1. Pulmonary edema. 2. Poor inspiratory effort. 3. Small bilateral pleural effusions 4. Improving bibasilar compressive atelectasis and pleural effusions
[2018-05-31 17:23] LABS: Glucose,Whole Blood 209 mg/dL (75-99)
[2018-05-31] MEDS: MAG HYDROX/AL HYDROX/SIMETH 30 ML, LIDOCAINE VISCOUS 30 ML, NYSTATIN 100,000 UNIT/ML SU... PO PRN ×6 (18:10→21:44)
[2018-05-31] MEDS: APIXABAN 5 MG TAB PO SCH ×2 (18:23→21:42)
[2018-05-31] MEDS ORDERED: VANCOMYCIN TROUGH DUE 1 EACH MISC MISCELLANE ONE (20:00)
[2018-05-31 20:32] LABS: Glucose,Whole Blood 226 mg/dL (75-99)
[2018-05-31] MEDS ORDERED: APIXABAN 5 MG TAB PO SCH (21:00)
[2018-05-31] MEDS: VANCOMYCIN 1,500 MG in SODIUM CHLORIDE 0.9% 250 ML IVPB SCH (21:43)
[2018-05-31] MEDS: HYDROmorphone 2 MG TAB PO PRN (22:51)
[2018-06-01] MEDS: methylPREDNISolone SOD SUCCI 40 MG/ML 1 ML VIAL IV SCH ×3 (01:09→16:58)
[2018-06-01 04:49] LABS: Anisocytosis Slight; Basophils % (A) 0 %; Eosinophils % (A) 0 %; HCT 30.7 % (34.0-46.0); HGB 9.3 gm/dL (11.4-16.0); Lymphocytes # (A) 0.2 k/uL (1.0-4.8); Lymphocytes % (A) 1 %; MCH 27.8 pg (25.0-35.0); MCHC 30.4 g/dL (31.0-37.0); MCV 91.6 fL (80.0-100.0); Mean Platelet Volume 8.1; Monocytes # (A) 0.7 k/uL (0-1.0); Monocytes % (A) 4 %; Neutrophils # (A) 17.1 k/uL (1.3-7.7); Neutrophils % (A) 94 %; RBC 3.35 m/uL (3.80-5.40); RDW 17.4 % (11.5-15.5); WBC 18.2 k/uL (3.8-10.6)
[2018-06-01 04:56] LABS: Platelet Count 64 k/uL (150-450)
[2018-06-01 05:00] LABS: Blood Urea Nitrogen 58 mg/dL (7-17); Calcium 8.5 mg/dL (8.4-10.2); Chloride 94 mmol/L (98-107); Glucose 153 mg/dL (74-99); Potassium 3.8 mmol/L (3.5-5.1); Sodium 139 mmol/L (137-145)
[2018-06-01 05:07] LABS: Anion Gap 3 mmol/L
[2018-06-01 05:08] LABS: Carbon Dioxide 42 mmol/L (22-30)
[2018-06-01 05:12] LABS: INR 1.2 (<1.2); Prothrombin Time 11.7 sec (9.0-12.0)
[2018-06-01 05:17] LABS: Partial Thromboplastin Time 21.1 sec (22.0-30.0)
[2018-06-01] MEDS: LEVOTHYROXINE 50 MCG TAB PO SCH (06:04)
[2018-06-01] MEDS ORDERED: POTASSIUM CHLORIDE ER 20 MEQ TAB.ER PO SCH (07:00)
[2018-06-01] MEDS: IPRATROPIUM-ALBUTEROL 3 ML NEB INHALATION SCH ×4 (07:10→20:04)
[2018-06-01 07:44] LABS: Glucose,Whole Blood 179 mg/dL (75-99)
[2018-06-01] MEDS: INSULIN ASPART 100 UNIT/ML 1 ML 10 ML VIAL SQ SCH ×4 (07:48→20:52)
--- NOTE | 2018-06-01 08:04 | P.PN ---
Subjective Progress Note Date: 06/01/18 On today's evaluation of 05/30/2018, the patient is feeling better and the patient is awake and alert and following commands and answering questions appropriately. She has bilateral MRSA pneumonia for which she is on IV vancomycin. She is afebrile hemodynamically stable. She is on high flow oxygen at 45 liters and the patient's pulse ox is around 99%. Chest x-ray still showing right lower lobe pulmonary consolidation and elevation of the right hemidiaphragm. The patient is also being diuresis with IV Lasix 40 mg every 8 hours pH has been a negative fluid balance. The patient has been also receiving Diamox for underlying metabolic alkalosis. Her most recent serum bicarb is up to 39 and the creatinine is at 0.7. The white cell count is down to 19.6. She is tolerating her diet. She is a bit weak and she is working with physical therapy. She is utilizing BiPAP overnight at a pressure of 16/8 cm of water. Otherwise, she is developed a slow progress over the past few days. On today's evaluation of 05/31/2018, the patient is still in hypoxic respiratory failure and the patient is developed diffuse bilateral pulmonary infiltrates and this was noted on a chest x-ray that was done following the insertion of the PICC line catheter. The patient remains on IV vancomycin regarding MRSA pneumonia. The patient is hemodynamically stable. The patient is on high flow oxygen at 55%, and her pulse ox in the order of 97%. She is a bit more short of breath compared to yesterday. I stopped her Diamox yesterday and I cut down the Lasix to once a day. She remains in a negative fluid balance. She is a bit alkalotic with a serum bicarb of 44 on today's blood work. White cell count is also up to 23.7. The patient is being treated with IV vancomycin. Her cardiac rhythm is atrial fibrillation. The patient is on amiodarone 200 mg by mouth twice a day. The patient is on oral Cardizem 30 mg by mouth 3 times a day. The patient is also on bronchodilators and systemic steroids. On 06/01/2018 I'm seeing this patient for a follow-up. The patient is not doing the best. She is a bit lethargic. She slept all night yesterday. This morning she is feeling weak and she is on fish short of breath on high flow oxygen at 15 right percent FiO2. Pulse ox around 94% on high flow oxygen. The CAT scan of the chest was done yesterday showed evidence of pulmonary edema. There was patchy infiltrates bilaterally likely on the basis of pulmonary edema. There is also small bilateral pleural effusion. The bibasilar compressive atelectatic changes were essentially improving. Based on these findings, increased the patient's Lasix up to 40 g twice a day on that he started the Diamox. The patient is diuresing. The patient is a negative fluid balance. A repeat chest x-ray from today shows improvement in the pulmonary edema. Nevertheless residual edema in the upper lobes and persistent consolidation of the right lower lobe along with small bilateral pleural effusion. The echocardiogram that was done at time of admission showed an ejection fraction of 50-55% and the left atrium was severely dilated. The patient has severe aortic stenosis present. The patient also has moderate degree of mitral regurgitation and severe mitral stenosis. There is also moderate to severe pulmonary hypertension present. As such there is obvious valvular heart disease which could be contributing to the patient's pulmonary edema and hypoxic respiratory failure. The patient is still on vancomycin regarding MRSA pneumonia. Vancomycin levels are being monitored on a regular basis. Renal function is still stable. The serum bicarb is 42. Objective - Vital Signs Vital signs: Vital Signs Temp 98.5 F 06/01/18 04:00 Pulse 67 06/01/18 07:35 Resp 22 06/01/18 07:00 BP 115/57 06/01/18 07:00 Pulse Ox 95 06/01/18 07:11 Intake & Output 05/31/18 06/01/18 06/01/18 18:59 06:59 18:59 Intake Total 920 470 510 Output Total 1180 1105 75 Balance -082 -312 748 Weight 105.4 kg 104.1 kg Intake: IV 120 370 10 Sodium Chloride 0.9% 1, 120 120 10 000 ml @ 10 mls/hr IV . Q24H NIRANJAN Rx#:[id number] Vancomycin 1,500 mg In 250 Sodium Chloride 0.9% 250 ml @ 125 mls/hr IVPB Q24H NIRANJAN Rx#:[id number] Oral 800 100 500 Output: Urine 1180 1105 75 Other: Voiding Method Indwelling Catheter Indwelling Catheter ABP, PAP, CO, CI - Last Documented Arterial Blood Pressure 24/24 - Exam No acute distress, Nasal O2 in place and the patient on high flow oxygen at 55 L /m. Patient is resting comfortably in bed and the patient shows no signs of an acute respiratory distress at this point in time. She is able to speak full Sentences. HEENT examination is grossly unremarkable. Mucous membranes are moist. Neck supple. Full range of motion. No adenopathy thyromegaly or neck vein distention. Cardiovascular examination reveals regular rhythm rate. S1-S2 normal. No S3 or S4. A loud systolic murmur of aortic stenosis is noted.. No murmurs throughout the precordium more so in the apex radiating to the neck. Lungs reveal severely diminished breath sounds throughout. There is coarse bilateral rhonchi and crackles. No wheezes. Breath sounds are equal bilaterally. In my opinion, this been no major changes in the way she sounds over the last couple of days. The breath sounds are diminished in the lung bases most on the left lung base. Abdomen soft. Bowel sounds are not noted. No masses or tenderness. Extremities are intact. No cyanosis clubbing or edema. Skin is without rash or lesion. Neurologic examination is brief but nonfocal. - Labs CBC & Chem 7: 06/01/18 04:40 06/01/18 04:40 Labs: Abnormal Lab Results - Last 24 Hours (Table) 05/31/18 05/31/18 05/31/18 Range/Units 12:20 12:33 17:21 WBC (3.8-10.6) k/uL RBC (3.80-5.40) m/uL Hgb (11.4-16.0) gm/dL Hct (34.0-46.0) % MCHC (31.0-37.0) g/dL RDW (11.5-15.5) % Plt Count (150-450) k/uL Neutrophils # (1.3-7.7) k/uL Lymphocytes # (1.0-4.8) k/uL INR (<1.2) APTT (22.0-30.0) sec ABG pH 7.51 H (7.35-7.45) ABG pCO2 52 H (35-45) mmHg ABG HCO3 41 H* (21-25) mmol/L ABG Total CO2 43 H (19-24) mmol/L ABG O2 Saturation 98.5 H (94-97) % Chloride (98-107) mmol/L Carbon Dioxide (22-30) mmol/L BUN (7-17) mg/dL Glucose (74-99) mg/dL POC Glucose (mg/dL) 189 H 209 H (75-99) mg/dL 05/31/18 06/01/18 06/01/18 Range/Units 20:30 04:40 04:40 WBC 18.2 H (3.8-10.6) k/uL RBC 3.35 L (3.80-5.40) m/uL Hgb 9.3 L (11.4-16.0) gm/dL Hct 30.7 L (34.0-46.0) % MCHC 30.4 L (31.0-37.0) g/dL RDW 17.4 H (11.5-15.5) % Plt Count 64 L (150-450) k/uL Neutrophils # 17.1 H (1.3-7.7) k/uL Lymphocytes # 0.2 L (1.0-4.8) k/uL INR 1.2 H (<1.2) APTT 21.1 L (22.0-30.0) sec ABG pH (7.35-7.45) ABG pCO2 (35-45) mmHg ABG HCO3 (21-25) mmol/L ABG Total CO2 (19-24) mmol/L ABG O2 Saturation (94-97) % Chloride (98-107) mmol/L Carbon Dioxide (22-30) mmol/L BUN (7-17) mg/dL Glucose (74-99) mg/dL POC Glucose (mg/dL) 226 H (75-99) mg/dL 06/01/18 06/01/18 Range/Units 04:40 07:42 WBC (3.8-10.6) k/uL RBC (3.80-5.40) m/uL Hgb (11.4-16.0) gm/dL Hct (34.0-46.0) % MCHC (31.0-37.0) g/dL RDW (11.5-15.5) % Plt Count (150-450) k/uL Neutrophils # (1.3-7.7) k/uL Lymphocytes # (1.0-4.8) k/uL INR (<1.2) APTT (22.0-30.0) sec ABG pH (7.35-7.45) ABG pCO2 (35-45) mmHg ABG HCO3 (21-25) mmol/L ABG Total CO2 (19-24) mmol/L ABG O2 Saturation (94-97) % Chloride 94 L (98-107) mmol/L Carbon Dioxide 42 H* (22-30) mmol/L BUN 58 H (7-17) mg/dL Glucose 153 H (74-99) mg/dL POC Glucose (mg/dL) 179 H (75-99) mg/dL Microbiology - Last 24 Hours (Table) 05/19/18 11:15 Acid Fast Bacilli Smear - Final Bronchial Washings - Right Acid Fast Bacilli Culture - Preliminary Assessment and Plan Plan: Assessment 1 acute hypoxic respiratory failure with bilateral lower lobe pneumonia secondary to MRSA and the patient is currently on IV vancomycin. In addition, there is a component of pulmonary edema secondary to CHF/valvular heart disease. The patient has severe aortic stenosis and severe mitral stenosis and secondary pulmonary hypertension. Note that subsequent chest x-ray showed development of pulmonary edema and the CAT scan of the chest confirmed the findings. The patient is back on diuretics for now. She is in a negative fluid balance. She remains on high flow oxygen at 55% FiO2. 2 bilateral lower lobe pneumonia with airspace disease and consolidations. This is a staphylococcal pneumonia which is being treated with vancomycin. 3 acute cardiac pulmonary arrest with brief loss in progress where the patient received CPR and received a dose of epinephrine with return of spontaneous circulation. Currently on no pressors. No signs of any hypoxic encephalopathy and the patient was given a brief sedation holiday and she was able to follow simple commands without any major difficulties 4 lactic acidosis secondary to above, improving 5 leukocytosis secondary to above, and the white cell count is down to 18.2 6 morbid obesity with a BMI of 43.4 7 obstructive sleep apnea 8 severe persistent bronchial asthma 9 history of right hemidiaphragmatic plication for unilateral paralysis 10 moderate to severe severe aortic stenosis and mitral stenosis, with a preserved LV function as evident on the echocardiogram 11 history of TIA 12 nephrolithiasis 13 gouty arthritis 14 hypothyroidism 13 hypertension 16 hyperlipidemia 17 history of atrial fibrillation , and the patient was taken Rythmol at home and currently she is on amiodarone 200 mg by mouth twice a day. 18 acid reflux 19 gout 20 degenerative arthritis 21 episodes of SVT, and currently the patient is atrial fibrillation with a controlled rate and she is currently on amiodarone 200 mg by mouth twice a day and Eliquis 5 mg by mouth twice a day for long-term anticoagulation. Her echocardiogram shows a preserved LV function. T Plan Increase the Lasix to 40 mg IV every 8 hours. Monitor the bicarb level. Monitored blood gas to assess acid-base status. Diamox for significant metabolic alkalosis. Continue the vancomycin. Cardiac rhythm is still in atrial fibrillation at the rate is controlled. The patient on amiodarone. The patient is on anticoagulation with Eliquis. Prognosis poor specially with her age and above-mentioned comorbidities. We'll continue to follow. Unfortunately were unable to wean down the FiO2 at this point in time. Will discuss case with cardiology. We'll make further recommendations accordingly. Condition is critical care evaluation was done in 31 minutes. Time with Patient: Greater than 30
--- NOTE | 2018-06-01 08:24 | XR ---
EXAMINATION TYPE: XR chest 1V DATE OF EXAM: 06/01/2018 CLINICAL HISTORY: Pneumonia and pulmonary edema progress study. TECHNIQUE: Single AP portable upright view of the chest is obtained. COMPARISON: Chest x-ray from 2 days earlier and older studies. CTA chest from one day earlier. FINDINGS: There is interval removal of left subclavian central venous catheter and placement of righ t-sided PICC line from most recent chest x-ray. Cardiac silhouette size is stable and mildly enlarged with atherosclerotic thoracic aorta. There is persistent elevated right hemidiaphragm with bibasilar opacity consistent with small bilateral pleural effusions and associated compressive atelectasis. Di ffuse opacity bilaterally correlates with alveolar edema and/or infiltrates symmetric slightly more p rominent in the upper lobes. No sizable pneumothorax is seen. Multilevel spurring in thoracic spine w ith scoliotic curvature is redemonstrated. IMPRESSION: Overall stable findings, suspect CHF exacerbation as there is cardiomegaly with small b ilateral pleural effusions and bilateral moderate alveolar edema, correlate clinically. Underlying in filtrate is not excluded. No significant change from CT study one day earlier.
[2018-06-01] MEDS: PANTOPRAZOLE 40 MG TABLET PO SCH (09:58)
[2018-06-01] MEDS: DILTIAZEM ORAL 30 MG TAB PO SCH ×3 (09:58→21:45)
[2018-06-01] MEDS: AMIODARONE 200 MG TAB PO SCH ×2 (09:58→20:51)
[2018-06-01] MEDS: APIXABAN 5 MG TAB PO SCH ×2 (10:03→22:44)
--- NOTE | 2018-06-01 10:56 | P.PN ---
Subjective Discussed case with Dr. Whatley. He believes that her dyspnea and failure related to cardiogenic problems valvular disease. There attempting to diuresis patient more was found on computed tomography scan to be in mild pulmonary edema Objective - Vital Signs Vital signs: Vital Signs Temp 97.8 F 06/01/18 08:00 Pulse 107 H 06/01/18 10:00 Resp 16 06/01/18 10:00 BP 126/49 06/01/18 10:00 Pulse Ox 93 L 06/01/18 10:00 Intake & Output 05/31/18 06/01/18 06/01/18 18:59 06:59 18:59 Intake Total 920 470 980 Output Total 1180 1105 345 Balance -260 -635 635 Weight 105.4 kg 104.1 kg Intake: IV 120 370 40 Sodium Chloride 0.9% 1, 120 120 40 000 ml @ 10 mls/hr IV . Q24H NIRANJAN Rx#:[id number] Vancomycin 1,500 mg In 250 Sodium Chloride 0.9% 250 ml @ 125 mls/hr IVPB Q24H NIRANJAN Rx#:[id number] Oral 800 100 940 Output: Urine 1180 1105 345 Other: Voiding Method Indwelling Catheter Indwelling Catheter Indwelling Catheter ABP, PAP, CO, CI - Last Documented Arterial Blood Pressure - Constitutional General appearance: Present: obese - EENT Eyes: Present: PERRLA Ears: left: normal - Neck Neck: Present: normal ROM - Respiratory Respiratory: bilateral: diminished - Cardiovascular Rhythm: irregularly irregular Abnormal Heart Sounds: Present: systolic murmur - Gastrointestinal General gastrointestinal: Present: soft - Integumentary Integumentary: Present: normal - Neurologic Neurologic: Present: CNII-XII intact - Musculoskeletal Musculoskeletal: Present: generalized weakness - Psychiatric Psychiatric: Present: A&O x's 3, appropriate affect, intact judgment & insight - Labs CBC & Chem 7: 06/01/18 04:40 06/01/18 04:40 Labs: Abnormal Lab Results - Last 24 Hours (Table) 05/31/18 05/31/18 05/31/18 Range/Units 12:20 12:33 17:21 WBC (3.8-10.6) k/uL RBC (3.80-5.40) m/uL Hgb (11.4-16.0) gm/dL Hct (34.0-46.0) % MCHC (31.0-37.0) g/dL RDW (11.5-15.5) % Plt Count (150-450) k/uL Neutrophils # (1.3-7.7) k/uL Lymphocytes # (1.0-4.8) k/uL INR (<1.2) APTT (22.0-30.0) sec ABG pH 7.51 H (7.35-7.45) ABG pCO2 52 H (35-45) mmHg ABG HCO3 41 H* (21-25) mmol/L ABG Total CO2 43 H (19-24) mmol/L ABG O2 Saturation 98.5 H (94-97) % Chloride (98-107) mmol/L Carbon Dioxide (22-30) mmol/L BUN (7-17) mg/dL Glucose (74-99) mg/dL POC Glucose (mg/dL) 189 H 209 H (75-99) mg/dL 05/31/18 06/01/18 06/01/18 Range/Units 20:30 04:40 04:40 WBC 18.2 H (3.8-10.6) k/uL RBC 3.35 L (3.80-5.40) m/uL Hgb 9.3 L (11.4-16.0) gm/dL Hct 30.7 L (34.0-46.0) % MCHC 30.4 L (31.0-37.0) g/dL RDW 17.4 H (11.5-15.5) % Plt Count 64 L (150-450) k/uL Neutrophils # 17.1 H (1.3-7.7) k/uL Lymphocytes # 0.2 L (1.0-4.8) k/uL INR 1.2 H (<1.2) APTT 21.1 L (22.0-30.0) sec ABG pH (7.35-7.45) ABG pCO2 (35-45) mmHg ABG HCO3 (21-25) mmol/L ABG Total CO2 (19-24) mmol/L ABG O2 Saturation (94-97) % Chloride (98-107) mmol/L Carbon Dioxide (22-30) mmol/L BUN (7-17) mg/dL Glucose (74-99) mg/dL POC Glucose (mg/dL) 226 H (75-99) mg/dL 06/01/18 06/01/18 Range/Units 04:40 07:42 WBC (3.8-10.6) k/uL RBC (3.80-5.40) m/uL Hgb (11.4-16.0) gm/dL Hct (34.0-46.0) % MCHC (31.0-37.0) g/dL RDW (11.5-15.5) % Plt Count (150-450) k/uL Neutrophils # (1.3-7.7) k/uL Lymphocytes # (1.0-4.8) k/uL INR (<1.2) APTT (22.0-30.0) sec ABG pH (7.35-7.45) ABG pCO2 (35-45) mmHg ABG HCO3 (21-25) mmol/L ABG Total CO2 (19-24) mmol/L ABG O2 Saturation (94-97) % Chloride 94 L (98-107) mmol/L Carbon Dioxide 42 H* (22-30) mmol/L BUN 58 H (7-17) mg/dL Glucose 153 H (74-99) mg/dL POC Glucose (mg/dL) 179 H (75-99) mg/dL - Imaging and Cardiology Chest x-ray: report reviewed CT scan - chest: report reviewed Assessment and Plan Plan: Assessment Acute hypoxic respiratory failure multifactorial related to pneumonia CHF Post extubation Intermittent BiPAP Bronchoscopy showing positive MRSA Post acute cardiopulmonary arrest Sepsis secondary to pneumonia obstructive sleep apnea on BiPAP at home Morbid obesity BMI 44.9 Acute on chronic congestive heart failure diastolic dysfunction as well as valvular heart disease pulmonary edema History of right hemidiaphragmatic plication with unilateral paralysis history of TIA Osteoarthritis Hypothyroidism Atrial fibrillation paroxysmal GERD Gout Hypotension Pleural effusion Post PICC line insertion Plan Pulmonology Will confer with cardiology regarding pulmonary edema Patient continues to be no code no CPR no ventilator per patient and family
--- NOTE | 2018-06-01 11:27 | PN ---
PROGRESS NOTE Mrs. Tuttle 77-year-old female who presented with respiratory failure, pneumonia requiring mechanical ventilation. She is extubated, continues to be on high-flow oxygen supply. She continues to be in atrial fibrillation. She has no chest discomfort. She feels tired but has no hemodynamic compromise. She denies any dizziness or palpitation. She denies any nausea. She underwent CT scan of the chest yesterday revealed bilateral patchy infiltrate as well as evidence to suggest pulmonary edema and pleural effusion. She continues to be on amiodarone 200 mg twice a day, Eliquis 5 mg twice a day, diltiazem 30 mg 3 times a day. PHYSICAL EXAMINATION: Blood pressure 124/45 with the heart rate in the 90s. LUNGS: With scattered rhonchi. No wheezes. HEART: Irregular, irregular. S1, S2. No S3 with systolic murmur heard at the base, ejection type. No diastolic murmur. No rub. ABDOMEN: Soft, nontender. EXTREMITIES: No significant edema. LAB DATA: Lab data revealed a hemoglobin 9.3, white blood cell 18.2. BUN and creatinine of 58 and 0.7. Bicarb of 42. IMPRESSION: 1. Respiratory failure with pneumonia, status post mechanical ventilation, doing better at this time with a continuing element of infiltrate from pneumonia with possible fluid overload. 2. Atrial fibrillation persistent anticoagulated with controlled rate. 3. History of hypertrophic cardiomyopathy. Her echocardiogram showed evidence of aortic stenosis, although in the past she did not have any significant aortic valve stenosis and it was predominantly a valvular gradient. 4. Hypertension. 5. Obesity. RECOMMENDATION: From the cardiac standpoint, the patient will receive IV diuretics. Depending on her progress, further recommendation will be made. To further evaluate the aortic valve, a transesophageal echocardiogram will be helpful, but at this time, her respiratory status remains unstable and doing a CORINA may end up re-intubating the patient so will continue present therapy. I discussed those findings with Dr. Whatley. MMDERICKL / RAHELN: [id number] /
[2018-06-01] MEDS: SODIUM CHLORIDE 0.9% 1,000 ML IV SCH (12:11)
[2018-06-01 12:57] LABS: Glucose,Whole Blood 181 mg/dL (75-99)
[2018-06-01] MEDS: MAGNESIUM HYDROXIDE 2,400 MG/10 ML CUP PO PRN (13:00)
[2018-06-01] MEDS: VANCOMYCIN 1,750 MG in SODIUM CHLORIDE 0.9% 500 ML IVPB SCH (15:08)
[2018-06-01 16:51] LABS: Glucose,Whole Blood 167 mg/dL (75-99)
[2018-06-01] MEDS: FUROSEMIDE 10 MG/ML 4 ML VIAL IV SCH (16:58)
[2018-06-01 20:47] LABS: Glucose,Whole Blood 226 mg/dL (75-99)
[2018-06-01] MEDS: HYDROmorphone 2 MG TAB PO PRN (21:50)
[2018-06-02] MEDS: methylPREDNISolone SOD SUCCI 40 MG/ML 1 ML VIAL IV SCH ×4 (00:55→23:38)
[2018-06-02] MEDS: FUROSEMIDE 10 MG/ML 4 ML VIAL IV SCH ×4 (00:55→23:38)
[2018-06-02 04:26] LABS: Anisocytosis Slight; MCH 28.4 pg (25.0-35.0); MCHC 30.9 g/dL (31.0-37.0); MCV 91.8 fL (80.0-100.0); Mean Platelet Volume 8.3; RBC 3.16 m/uL (3.80-5.40); RDW 17.7 % (11.5-15.5); WBC 17.6 k/uL (3.8-10.6)
[2018-06-02 04:27] LABS: Platelet Count 64 k/uL (150-450)
[2018-06-02 04:30] LABS: Blood Urea Nitrogen 53 mg/dL (7-17); Calcium 8.1 mg/dL (8.4-10.2); Chloride 97 mmol/L (98-107); Glucose 167 mg/dL (74-99); Potassium 3.8 mmol/L (3.5-5.1); Sodium 139 mmol/L (137-145)
[2018-06-02 04:38] LABS: Anion Gap 0 mmol/L; Carbon Dioxide 42 mmol/L (22-30)
[2018-06-02 04:47] LABS: Lymphocytes # (M) 0.35 k/uL (1.0-4.8); Monocytes # (M) 0.35 k/uL (0-1.0); Neutrophils % (M) 96 %; Nucleated Red Blood Cells 0 /100 WBC (0-0); Total Cells Counted 100
[2018-06-02] MEDS: VANCOMYCIN 1,750 MG in SODIUM CHLORIDE 0.9% 500 ML IVPB SCH ×2 (06:34→22:16)
[2018-06-02 06:58] LABS: Glucose,Whole Blood 173 mg/dL (75-99)
[2018-06-02] MEDS: INSULIN ASPART 100 UNIT/ML 1 ML 10 ML VIAL SQ SCH ×4 (07:02→20:31)
[2018-06-02] MEDS: LEVOTHYROXINE 50 MCG TAB PO SCH (07:02)
[2018-06-02] MEDS: IPRATROPIUM-ALBUTEROL 3 ML NEB INHALATION SCH ×4 (07:07→20:48)
--- NOTE | 2018-06-02 08:18 | XR ---
EXAMINATION TYPE: XR chest 1V portable DATE OF EXAM: 06/02/2018 Comparison: 06/01/2018 Clinical History: 77-year-old female rule out pleural effusions Findings: Heart borderline to mildly enlarged. Right PICC tip at the cavoatrial junction. Continued small to mo derate right and small left pleural effusions with prominent bibasilar opacities. Diffuse interstitia l and vascular prominence persists though with some improvement in aeration from prior exam. Active c ardiac calcifications throughout the aorta. Impression: Continued small to moderate right and small left pleural effusions with prominent adjacent atelectasi s and/or consolidation in the lower lungs. Persistent but improving interstitial pulmonary edema.
--- NOTE | 2018-06-02 08:40 | PN ---
PROGRESS NOTE Mrs. Tuttle is a 77-year-old female who presented with respiratory failure and pneumonia and MRSA. She was intubated. She is extubated at this time, continued to be in atrial fibrillation. Feels better but continues to be tired. Her cough is better. Her blood pressure is stable. She denies any dizziness, palpitation. She denies any nausea. She is taking p.o. without difficulty. She continues to be on amiodarone 200 mg twice a day, Eliquis 5 mg twice a day, diltiazem 30 mg 3 times a day. Her Lasix was increased yesterday to 40 mg IV q.8 hours, and she continues to be on her antibiotics and steroid. PHYSICAL EXAMINATION: Blood pressure 105/60 with a heart in 90s. LUNGS: No wheezes with decreased breath sounds in the right base. HEART: Irregular, irregular. S1, S2. No S3 with systolic murmur, ejection type. No diastolic murmur. ABDOMEN: Soft, nontender, obese. EXTREMITIES: No significant edema. LAB DATA: Revealed BUN and creatinine 53 and 0.7, hemoglobin of 9, white blood cell of 17.6. Her chest x-ray shows improvement with reduction of the congestion. IMPRESSION: 1. Respiratory failure with pneumonia and methicillin-resistant Staphylococcus aureus. 2. Atrial fibrillation. 3. Hypertrophic cardiomyopathy. 4. History of hypertension. 5. Symptoms of congestive heart failure, improving. RECOMMENDATION: From the cardiac standpoint, we will continue present therapy. Continue to follow her renal function closely to adjust her diuretics and follow chest x-ray. Continue physical therapy. Depending on her progress, further recommendation will be made. MMODL / IJN: [id number] /
[2018-06-02] MEDS: POTASSIUM CHLORIDE 10 MEQ in WATER FOR INJECTION 1 100ML.BAG IVPB SCH ×2 (09:24→11:35)
[2018-06-02] MEDS: AMIODARONE 200 MG TAB PO SCH ×2 (09:25→20:31)
[2018-06-02] MEDS: APIXABAN 5 MG TAB PO SCH ×2 (09:27→20:31)
[2018-06-02] MEDS: DILTIAZEM ORAL 30 MG TAB PO SCH ×3 (09:27→22:16)
[2018-06-02] MEDS: PANTOPRAZOLE 40 MG TABLET PO SCH (09:27)
[2018-06-02 09:50] LABS: Magnesium 2.4 mg/dL (1.6-2.3); Phosphorus 3.2 mg/dL (2.5-4.5)
[2018-06-02] MEDS: MAGNESIUM HYDROXIDE 2,400 MG/10 ML CUP PO PRN (09:56)
--- NOTE | 2018-06-02 10:04 | P.PN ---
Subjective Progress Note Date: 06/02/18 Principal diagnosis: Acute hypoxic respiratory failure with bilateral lower lobe pneumonia secondary to MRSA. On today's evaluation of 05/30/2018, the patient is feeling better and the patient is awake and alert and following commands and answering questions appropriately. She has bilateral MRSA pneumonia for which she is on IV vancomycin. She is afebrile hemodynamically stable. She is on high flow oxygen at 45 liters and the patient's pulse ox is around 99%. Chest x-ray still showing right lower lobe pulmonary consolidation and elevation of the right hemidiaphragm. The patient is also being diuresis with IV Lasix 40 mg every 8 hours pH has been a negative fluid balance. The patient has been also receiving Diamox for underlying metabolic alkalosis. Her most recent serum bicarb is up to 39 and the creatinine is at 0.7. The white cell count is down to 19.6. She is tolerating her diet. She is a bit weak and she is working with physical therapy. She is utilizing BiPAP overnight at a pressure of 16/8 cm of water. Otherwise, she is developed a slow progress over the past few days. On today's evaluation of 05/31/2018, the patient is still in hypoxic respiratory failure and the patient is developed diffuse bilateral pulmonary infiltrates and this was noted on a chest x-ray that was done following the insertion of the PICC line catheter. The patient remains on IV vancomycin regarding MRSA pneumonia. The patient is hemodynamically stable. The patient is on high flow oxygen at 55%, and her pulse ox in the order of 97%. She is a bit more short of breath compared to yesterday. I stopped her Diamox yesterday and I cut down the Lasix to once a day. She remains in a negative fluid balance. She is a bit alkalotic with a serum bicarb of 44 on today's blood work. White cell count is also up to 23.7. The patient is being treated with IV vancomycin. Her cardiac rhythm is atrial fibrillation. The patient is on amiodarone 200 mg by mouth twice a day. The patient is on oral Cardizem 30 mg by mouth 3 times a day. The patient is also on bronchodilators and systemic steroids. On 06/01/2018 I'm seeing this patient for a follow-up. The patient is not doing the best. She is a bit lethargic. She slept all night yesterday. This morning she is feeling weak and she is on fish short of breath on high flow oxygen at 15 right percent FiO2. Pulse ox around 94% on high flow oxygen. The CAT scan of the chest was done yesterday showed evidence of pulmonary edema. There was patchy infiltrates bilaterally likely on the basis of pulmonary edema. There is also small bilateral pleural effusion. The bibasilar compressive atelectatic changes were essentially improving. Based on these findings, increased the patient's Lasix up to 40 g twice a day on that he started the Diamox. The patient is diuresing. The patient is a negative fluid balance. A repeat chest x-ray from today shows improvement in the pulmonary edema. Nevertheless residual edema in the upper lobes and persistent consolidation of the right lower lobe along with small bilateral pleural effusion. The echocardiogram that was done at time of admission showed an ejection fraction of 50-55% and the left atrium was severely dilated. The patient has severe aortic stenosis present. The patient also has moderate degree of mitral regurgitation and severe mitral stenosis. There is also moderate to severe pulmonary hypertension present. As such there is obvious valvular heart disease which could be contributing to the patient's pulmonary edema and hypoxic respiratory failure. The patient is still on vancomycin regarding MRSA pneumonia. Vancomycin levels are being monitored on a regular basis. Renal function is still stable. The serum bicarb is 42. The patient is seen today 06/02/2018 in follow-up in the intensive care unit. She is currently awake and alert. She had an echocardiogram performed this morning. She is somewhat dyspneic currently on the AirVo currently at oxygen flow rate of 35 and 55% FiO2. O2 saturations were in the upper 80s. She is alternating back and forth between the BiPAP 16/8 and 45% FiO2 which keeps her O2 saturations in the 90s. Chest x-ray continues to show small to moderate right and small left pleural effusions with adjacent atelectasis. Persistent but improving interstitial pulmonary edema. She currently denies any significant discomfort. No chest pain or palpitations. Hemodynamically stable. Currently afebrile. White count 17.6. Hemoglobin 9.0. Creatinine 0.70. Bicarb 42. She remains on Lasix 40 mg IV push every 8 hours. She is continued on vancomycin. Objective - Vital Signs Vital signs: Vital Signs Temp 97.5 F L 06/02/18 08:00 Pulse 105 H 06/02/18 09:00 Resp 22 06/02/18 09:00 BP 139/65 06/02/18 09:00 Pulse Ox 99 06/02/18 09:00 Intake & Output 06/01/18 06/02/18 06/02/18 18:59 06:59 18:59 Intake Total 2278 110 287 Output Total 1425 685 125 Balance 853 -575 162 Weight 103.6 kg Intake: IV 788 110 287 Potassium Chloride 10 meq 100 In Water For Injection 1 100ml.bag @ 100 mls/hr IVPB Q1H NIRANJAN Rx#: [id number] Sodium Chloride 0.9% 1, 120 110 20 000 ml @ 10 mls/hr IV . Q24H NIRANJAN Rx#:[id number] Vancomycin 1,500 mg In 668 167 Sodium Chloride 0.9% 250 ml @ 125 mls/hr IVPB Q24H NIRANJAN Rx#:[id number] Oral 1490 Output: Urine 1425 685 125 Other: Voiding Method Indwelling Catheter Indwelling Catheter # Bowel Movements 0 ABP, PAP, CO, CI - Last Documented Arterial Blood Pressure - Exam No acute distress, Nasal O2 in place and the patient on high flow oxygen at 55 L /m alternating with the BiPAP at 45% FiO2. Patient is resting comfortably in bed and the patient shows only slight respiratory distress at this point in time. She is able to speak full Sentences. HEENT examination is grossly unremarkable. Mucous membranes are moist. Neck supple. Full range of motion. No adenopathy thyromegaly or neck vein distention. Cardiovascular examination reveals regular rhythm rate. S1-S2 normal. No S3 or S4. A loud systolic murmur of aortic stenosis is noted.. No murmurs throughout the precordium more so in the apex radiating to the neck. Lungs reveal severely diminished breath sounds throughout. There is coarse bilateral rhonchi and crackles. No wheezes. Breath sounds are equal bilaterally. In my opinion, this been no major changes in the way she sounds over the last couple of days. The breath sounds are diminished in the lung bases most on the left lung base. Abdomen soft. Bowel sounds are not noted. No masses or tenderness. Extremities are intact. No cyanosis clubbing or edema. Skin is without rash or lesion. Neurologic examination is brief but nonfocal. - Labs CBC & Chem 7: 08/02/18 04:15 06/02/18 04:15 Labs: Abnormal Lab Results - Last 24 Hours (Table) 06/01/18 06/01/18 06/01/18 Range/Units 12:55 16:49 20:45 WBC (3.8-10.6) k/uL RBC (3.80-5.40) m/uL Hgb (11.4-16.0) gm/dL Hct (34.0-46.0) % MCHC (31.0-37.0) g/dL RDW (11.5-15.5) % Plt Count (150-450) k/uL Neutrophils # (Manual) (1.3-7.7) k/uL Lymphocytes # (Manual) (1.0-4.8) k/uL Chloride (98-107) mmol/L Carbon Dioxide (22-30) mmol/L BUN (7-17) mg/dL Glucose (74-99) mg/dL POC Glucose (mg/dL) 181 H 167 H 226 H (75-99) mg/dL Calcium (8.4-10.2) mg/dL Magnesium (1.6-2.3) mg/dL 06/02/18 06/02/18 06/02/18 Range/Units 04:10 04:15 04:15 WBC 17.6 H (3.8-10.6) k/uL RBC 3.16 L (3.80-5.40) m/uL Hgb 9.0 L (11.4-16.0) gm/dL Hct 29.0 L (34.0-46.0) % MCHC 30.9 L (31.0-37.0) g/dL RDW 17.7 H (11.5-15.5) % Plt Count 64 L (150-450) k/uL Neutrophils # (Manual) 16.90 H (1.3-7.7) k/uL Lymphocytes # (Manual) 0.35 L (1.0-4.8) k/uL Chloride 97 L (98-107) mmol/L Carbon Dioxide 42 H* (22-30) mmol/L BUN 53 H (7-17) mg/dL Glucose 167 H (74-99) mg/dL POC Glucose (mg/dL) (75-99) mg/dL Calcium 8.1 L (8.4-10.2) mg/dL Magnesium 2.4 H (1.6-2.3) mg/dL 06/02/18 Range/Units 06:56 WBC (3.8-10.6) k/uL RBC (3.80-5.40) m/uL Hgb (11.4-16.0) gm/dL Hct (34.0-46.0) % MCHC (31.0-37.0) g/dL RDW (11.5-15.5) % Plt Count (150-450) k/uL Neutrophils # (Manual) (1.3-7.7) k/uL Lymphocytes # (Manual) (1.0-4.8) k/uL Chloride (98-107) mmol/L Carbon Dioxide (22-30) mmol/L BUN (7-17) mg/dL Glucose (74-99) mg/dL POC Glucose (mg/dL) 173 H (75-99) mg/dL Calcium (8.4-10.2) mg/dL Magnesium (1.6-2.3) mg/dL Assessment and Plan Assessment: Assessment 1 acute hypoxic respiratory failure with bilateral lower lobe pneumonia secondary to MRSA and the patient is currently on IV vancomycin. In addition, there is a component of pulmonary edema secondary to CHF/valvular heart disease. The patient has severe aortic stenosis and severe mitral stenosis and secondary pulmonary hypertension. Note that subsequent chest x-ray showed development of pulmonary edema and the CAT scan of the chest confirmed the findings. The patient is back on diuretics for now. She is in a negative fluid balance. She remains on high flow oxygen at 55% FiO2. Alternating with BiPAP 2 bilateral lower lobe pneumonia with airspace disease and consolidations. This is a staphylococcal pneumonia which is being treated with vancomycin. 3 acute cardiac pulmonary arrest with brief loss in progress where the patient received CPR and received a dose of epinephrine with return of spontaneous circulation. Currently on no pressors. No signs of any hypoxic encephalopathy and the patient was given a brief sedation holiday and she was able to follow simple commands without any major difficulties 4 lactic acidosis secondary to above, improving 5 leukocytosis secondary to above, and the white cell count is down to 17.6. 6 morbid obesity with a BMI of 43.4 7 obstructive sleep apnea 8 severe persistent bronchial asthma 9 history of right hemidiaphragmatic plication for unilateral paralysis 10 moderate to severe severe aortic stenosis and mitral stenosis, with a preserved LV function as evident on the echocardiogram 11 history of TIA 12 nephrolithiasis 13 gouty arthritis 14 hypothyroidism 13 hypertension 16 hyperlipidemia 17 history of atrial fibrillation , and the patient was taken Rythmol at home and currently she is on amiodarone 200 mg by mouth twice a day. 18 acid reflux 19 gout 20 degenerative arthritis 21 episodes of SVT, and currently the patient is atrial fibrillation with a controlled rate and she is currently on amiodarone 200 mg by mouth twice a day and Eliquis 5 mg by mouth twice a day for long-term anticoagulation. Her echocardiogram shows a preserved LV function. T Plan: The patient was seen and evaluated by Dr. Whatley. Chest x-ray and labs were all reviewed. The patient patient still continues to require BiPAP support and alternating with high flow nasal cannula. Chest x-ray does show slight improvement in the interstitial edema. She is maintained on Lasix 40 mg IV push every 8 hours for now. Her weight is down another kilogram. We'll continue with vancomycin now for now. Continue bronchodilators and steroids. She is anticoagulated with Eliquis. Amiodarone and Cardizem for rate control. Her family was present at the bedside has been updated on her condition. PT to evaluate. We will continue to follow and make further recommendations based on her clinical status. Overall prognosis remains quite guarded and poor. I, the cosigning physician, performed a history & physical examination of the patient. Lungs sounds with crackles in the bilateral posterior bases. Maintaining good O2 saturations in the 90s alternating between BiPAP and high flow nasal cannula.. I discussed the assessment and plan of care with my nurse practitioner, Itzel Odom. I attest to the above note as dictated by her.
--- NOTE | 2018-06-02 10:21 | ECHOF ---
Referral Reason: MEASUREMENTS -------- HEIGHT: 160.0 cm WEIGHT: 103.4 kg BP: 132/55 IVSd: 1.5 cm (0.6 - 1.1) LVIDd: 2.8 cm (3.9 - 5.3) LVPWd: 1.7 cm (0.6 - 1.1) IVSs: 2.5 cm LVIDs: 1.6 cm LVPWs: 2.4 cm Ao Diam: 3.2 cm (2.0 - 3.7) AV Cusp: 1.4 cm (1.5 - 2.6) LA Diam: 5.3 cm (2.7 - 3.8) MV EXCURSION: 6.247 mm (> 18.000) MV EF SLOPE: 45 mm/s (70 - 150) EPSS: 0.9 cm MV E Dylan: 2.45 m/s MV DecT: 276 ms MV A Dylan: 1.15 m/s MV E/A Ratio: 2.13 AV maxP.90 mmHg AV meanP.41 mmHg RAP: 5.00 mmHg RVSP: 60.57 mmHg FINDINGS -------- Undetermined rhythm. This was a technically difficult study with suboptimal views. The left ventricular size is normal. There is severe concentric left ventricular hypertrophy. Ove rall left ventricular systolic function is normal with, an EF between 60 - 65 %. The right ventricle is normal in size and function. The left atrium is markedly dilated. The right atrium is normal in size. Lumason used Aortic valve is trileaflet and is moderately thickened. There is moderate aortic stenosis present. Peak/mean gradient across the Aortic Valve is 35.90mmHg / 19.41mmHg. The mitral valve leaflets are moderately thickened. Moderate mitral annular calcification present. Severe mitral regurgitation is present. The peak and mean MV gradients are 29.47mmHg 7.33mmHg as measured by doppler. [id number] mitral stenosis. Mild tricuspid regurgitation present. There is moderate to severe pulmonary hypertension. The rig ht ventricular systolic pressure, as measured by Doppler, is 60.57mmHg. Pulmonic valve appears structurally normal. The pericardium is normal. CONCLUSIONS -------- 1. Undetermined rhythm. 2. This was a technically difficult study with suboptimal views. 3. The left ventricular size is normal. 4. There is severe concentric left ventricular hypertrophy. 5. Overall left ventricular systolic function is normal with, an EF between 60 - 65 %. 6. The right ventricle is normal in size and function. 7. The left atrium is markedly dilated. 8. The right atrium is normal in size. 9. Lumason used 10. Aortic valve is trileaflet and is moderately thickened. 11. There is moderate aortic stenosis present. 12. Peak/mean gradient across the Aortic Valve is 35.90mmHg / 19.41mmHg. 13. The mitral valve leaflets are moderately thickened. 14. Moderate mitral annular calcification present. 15. Severe mitral regurgitation is present. 16. The peak and mean MV gradients are 29.47mmHg 7.33mmHg as measured by doppler. 17. Xqqnnjce-we-plhdba mitral stenosis. 18. Mild tricuspid regurgitation present. 19. There is moderate to severe pulmonary hypertension. 20. The right ventricular systolic pressure, as measured by Doppler, is 60.57mmHg. 21. Pulmonic valve appears structurally normal. 22. The pericardium is normal. STOCK [employer]ATION AGENT: Prabha Garsia RDCS
[2018-06-02] MEDS: SODIUM CHLORIDE 0.9% 1,000 ML IV SCH (11:36)
[2018-06-02 11:51] LABS: Glucose,Whole Blood 221 mg/dL (75-99)
--- NOTE | 2018-06-02 12:02 | P.PN ---
Subjective Patient alternating with BiPAP and high flow O2 nasal cannula. Patient has a depressed demeanor. Discussed condition with son. Patient continued to be diuresed. Echo shows 6065% ejection fraction patient in the pulmonary hypertension Objective - Vital Signs Vital signs: Vital Signs Temp 97.5 F L 06/02/18 08:00 Pulse 78 06/02/18 11:46 Resp 23 06/02/18 11:00 BP 143/59 06/02/18 11:00 Pulse Ox 97 06/02/18 11:00 Intake & Output 06/01/18 06/02/18 06/02/18 18:59 06:59 18:59 Intake Total 2278 110 407 Output Total 1425 685 400 Balance 853 -575 7 Weight 103.6 kg Intake: IV 788 110 407 Potassium Chloride 10 meq 200 In Water For Injection 1 100ml.bag @ 100 mls/hr IVPB Q1H NIRANJAN Rx#: [id number] Sodium Chloride 0.9% 1, 120 110 40 000 ml @ 10 mls/hr IV . Q24H NIRANJAN Rx#:[id number] Vancomycin 1,500 mg In 668 167 Sodium Chloride 0.9% 250 ml @ 125 mls/hr IVPB Q24H NIRANJAN Rx#:[id number] Oral 1490 Output: Urine 1425 685 400 Other: Voiding Method Indwelling Catheter Indwelling Catheter Indwelling Catheter # Bowel Movements 0 ABP, PAP, CO, CI - Last Documented Arterial Blood Pressure 24/24 - Constitutional General appearance: Present: obese - EENT Eyes: Present: PERRLA Ears: left: normal - Respiratory Respiratory: bilateral: diminished - Cardiovascular Rhythm: irregularly irregular Abnormal Heart Sounds: Present: systolic murmur - Gastrointestinal General gastrointestinal: Present: soft - Integumentary Integumentary: Present: normal - Neurologic Neurologic: Present: CNII-XII intact - Musculoskeletal Musculoskeletal: Present: generalized weakness - Psychiatric Psychiatric Comment(s): Patient sleepy but arousable depressed demeanor - Labs CBC & Chem 7: 06/02/18 04:15 06/02/18 04:15 Labs: Abnormal Lab Results - Last 24 Hours (Table) 06/01/18 06/01/18 06/01/18 Range/Units 12:55 16:49 20:45 WBC (3.8-10.6) k/uL RBC (3.80-5.40) m/uL Hgb (11.4-16.0) gm/dL Hct (34.0-46.0) % MCHC (31.0-37.0) g/dL RDW (11.5-15.5) % Plt Count (150-450) k/uL Neutrophils # (Manual) (1.3-7.7) k/uL Lymphocytes # (Manual) (1.0-4.8) k/uL Chloride (98-107) mmol/L Carbon Dioxide (22-30) mmol/L BUN (7-17) mg/dL Glucose (74-99) mg/dL POC Glucose (mg/dL) 181 H 167 H 226 H (75-99) mg/dL Calcium (8.4-10.2) mg/dL Magnesium (1.6-2.3) mg/dL 06/02/18 06/02/18 06/02/18 Range/Units 04:10 04:15 04:15 WBC 17.6 H (3.8-10.6) k/uL RBC 3.16 L (3.80-5.40) m/uL Hgb 9.0 L (11.4-16.0) gm/dL Hct 29.0 L (34.0-46.0) % MCHC 30.9 L (31.0-37.0) g/dL RDW 17.7 H (11.5-15.5) % Plt Count 64 L (150-450) k/uL Neutrophils # (Manual) 16.90 H (1.3-7.7) k/uL Lymphocytes # (Manual) 0.35 L (1.0-4.8) k/uL Chloride 97 L (98-107) mmol/L Carbon Dioxide 42 H* (22-30) mmol/L BUN 53 H (7-17) mg/dL Glucose 167 H (74-99) mg/dL POC Glucose (mg/dL) (75-99) mg/dL Calcium 8.1 L (8.4-10.2) mg/dL Magnesium 2.4 H (1.6-2.3) mg/dL 18 06/02/18 Range/Units 06:56 11:49 WBC (3.8-10.6) k/uL RBC (3.80-5.40) m/uL Hgb (11.4-16.0) gm/dL Hct (34.0-46.0) % MCHC (31.0-37.0) g/dL RDW (11.5-15.5) % Plt Count (150-450) k/uL Neutrophils # (Manual) (1.3-7.7) k/uL Lymphocytes # (Manual) (1.0-4.8) k/uL Chloride (98-107) mmol/L Carbon Dioxide (22-30) mmol/L BUN (7-17) mg/dL Glucose (74-99) mg/dL POC Glucose (mg/dL) 173 H 221 H (75-99) mg/dL Calcium (8.4-10.2) mg/dL Magnesium (1.6-2.3) mg/dL - Imaging and Cardiology Chest x-ray: report reviewed 2-D echo Assessment and Plan Plan: Assessment Acute hypoxic respiratory failure secondary to diastolic congestive heart failure bilateral pneumonia Patient post acute cardiopulmonary arrest Sepsis secondary to pneumonia Sleep apnea BiPAP at home Morbid obesity BMI 44.9 Acute on chronic congestive heart failure diastolic as well as valvular heart disease ejection fraction 60-65% his pulmonary hypertension Right hemidiaphragmatic plication with unilateral paralysis History of TIA Osteoarthritis Hypothyroidism Paroxysmal atrial fibrillation GERD Gout Hypotension Post bronchoscopy with with positive MRSA Pleural effusions Post PICC line Plan Inserter feels respiratory failure is secondary to cardiogenic cause. Feels pneumonia is resolving Continue consultation with cardiology and pulmonology
[2018-06-02 12:03] LABS: INR 1.3 (<1.2); Prothrombin Time 12.1 sec (9.0-12.0)
[2018-06-02 12:18] LABS: Partial Thromboplastin Time 21.8 sec (22.0-30.0)
[2018-06-02 17:22] LABS: Glucose,Whole Blood 167 mg/dL (75-99)
[2018-06-02 20:28] LABS: Glucose,Whole Blood 190 mg/dL (75-99)
[2018-06-02] MEDS: HYDROmorphone 2 MG TAB PO PRN (23:39)
[2018-06-03 05:16] LABS: Anisocytosis Slight; Basophils % (A) 0 %; Eosinophils % (A) 0 %; HCT 28.9 % (34.0-46.0); HGB 8.9 gm/dL (11.4-16.0); Lymphocytes # (A) 0.2 k/uL (1.0-4.8); Lymphocytes % (A) 2 %; MCH 28.6 pg (25.0-35.0); MCHC 30.8 g/dL (31.0-37.0); MCV 92.9 fL (80.0-100.0); Macrocytosis Slight; Mean Platelet Volume 8.5; Monocytes # (A) 0.4 k/uL (0-1.0); Monocytes % (A) 2 %; Neutrophils # (A) 15.3 k/uL (1.3-7.7); Neutrophils % (A) 95 %; RBC 3.11 m/uL (3.80-5.40); RDW 18.6 % (11.5-15.5); WBC 16.1 k/uL (3.8-10.6)
[2018-06-03 05:22] LABS: Platelet Count 59 k/uL (150-450)
[2018-06-03 05:29] LABS: Calcium 8.2 mg/dL (8.4-10.2); Potassium 4.1 mmol/L (3.5-5.1)
[2018-06-03] MEDS: IPRATROPIUM-ALBUTEROL 3 ML NEB INHALATION SCH ×4 (07:11→20:28)
[2018-06-03 07:30] LABS: Glucose,Whole Blood 191 mg/dL (75-99)
--- NOTE | 2018-06-03 08:12 | XR ---
EXAMINATION TYPE: XR chest 1V portable DATE OF EXAM: 06/03/2018 COMPARISON: 06/02/2018 HISTORY: Pleural effusions. Follow-up exam. Shortness of breath. TECHNIQUE: Single frontal view of the chest is obtained. FINDINGS: Cardiomediastinal silhouette is partially obscured but again enlarged. There is blunting o f the costophrenic angles relating to at least trace pleural effusions and associated bibasilar atele ctasis. There is persistent right hemidiaphragm elevation and diffuse interstitial/vascular prominenc e. Right PICC is unchanged. Osseous structures are grossly intact. IMPRESSION: Unchanged exam in comparison to the prior with mild pulmonary vascular congestion and at least trace pleural effusions as well as persistent right hemidiaphragm elevation.
--- NOTE | 2018-06-03 09:01 | P.PN ---
Subjective Progress Note Date: 06/03/18 Principal diagnosis: Acute hypoxic respiratory failure with bilateral lower lobe pneumonia secondary to MRSA. On today's evaluation of 05/30/2018, the patient is feeling better and the patient is awake and alert and following commands and answering questions appropriately. She has bilateral MRSA pneumonia for which she is on IV vancomycin. She is afebrile hemodynamically stable. She is on high flow oxygen at 45 liters and the patient's pulse ox is around 99%. Chest x-ray still showing right lower lobe pulmonary consolidation and elevation of the right hemidiaphragm. The patient is also being diuresis with IV Lasix 40 mg every 8 hours pH has been a negative fluid balance. The patient has been also receiving Diamox for underlying metabolic alkalosis. Her most recent serum bicarb is up to 39 and the creatinine is at 0.7. The white cell count is down to 19.6. She is tolerating her diet. She is a bit weak and she is working with physical therapy. She is utilizing BiPAP overnight at a pressure of 16/8 cm of water. Otherwise, she is developed a slow progress over the past few days. On today's evaluation of 05/31/2018, the patient is still in hypoxic respiratory failure and the patient is developed diffuse bilateral pulmonary infiltrates and this was noted on a chest x-ray that was done following the insertion of the PICC line catheter. The patient remains on IV vancomycin regarding MRSA pneumonia. The patient is hemodynamically stable. The patient is on high flow oxygen at 55%, and her pulse ox in the order of 97%. She is a bit more short of breath compared to yesterday. I stopped her Diamox yesterday and I cut down the Lasix to once a day. She remains in a negative fluid balance. She is a bit alkalotic with a serum bicarb of 44 on today's blood work. White cell count is also up to 23.7. The patient is being treated with IV vancomycin. Her cardiac rhythm is atrial fibrillation. The patient is on amiodarone 200 mg by mouth twice a day. The patient is on oral Cardizem 30 mg by mouth 3 times a day. The patient is also on bronchodilators and systemic steroids. On 06/01/2018 I'm seeing this patient for a follow-up. The patient is not doing the best. She is a bit lethargic. She slept all night yesterday. This morning she is feeling weak and she is on fish short of breath on high flow oxygen at 15 right percent FiO2. Pulse ox around 94% on high flow oxygen. The CAT scan of the chest was done yesterday showed evidence of pulmonary edema. There was patchy infiltrates bilaterally likely on the basis of pulmonary edema. There is also small bilateral pleural effusion. The bibasilar compressive atelectatic changes were essentially improving. Based on these findings, increased the patient's Lasix up to 40 g twice a day on that he started the Diamox. The patient is diuresing. The patient is a negative fluid balance. A repeat chest x-ray from today shows improvement in the pulmonary edema. Nevertheless residual edema in the upper lobes and persistent consolidation of the right lower lobe along with small bilateral pleural effusion. The echocardiogram that was done at time of admission showed an ejection fraction of 50-55% and the left atrium was severely dilated. The patient has severe aortic stenosis present. The patient also has moderate degree of mitral regurgitation and severe mitral stenosis. There is also moderate to severe pulmonary hypertension present. As such there is obvious valvular heart disease which could be contributing to the patient's pulmonary edema and hypoxic respiratory failure. The patient is still on vancomycin regarding MRSA pneumonia. Vancomycin levels are being monitored on a regular basis. Renal function is still stable. The serum bicarb is 42. The patient is seen today 06/02/2018 in follow-up in the intensive care unit. She is currently awake and alert. She had an echocardiogram performed this morning. She is somewhat dyspneic currently on the AirVo currently at oxygen flow rate of 35 and 55% FiO2. O2 saturations were in the upper 80s. She is alternating back and forth between the BiPAP 16/8 and 45% FiO2 which keeps her O2 saturations in the 90s. Chest x-ray continues to show small to moderate right and small left pleural effusions with adjacent atelectasis. Persistent but improving interstitial pulmonary edema. She currently denies any significant discomfort. No chest pain or palpitations. Hemodynamically stable. Currently afebrile. White count 17.6. Hemoglobin 9.0. Creatinine 0.70. Bicarb 42. She remains on Lasix 40 mg IV push every 8 hours. She is continued on vancomycin. The patient is seen again today 06/03/2018 in follow-up in the intensive care unit. She remains BiPAP dependent at this point. Current settings 16/06 with an FiO2 of 45% to maintain O2 saturations in the 90s. Today's chest x-ray is basically unchanged showing mild pulmonary vascular congestion and trace pleural effusions. There is persistent right hemidiaphragm elevation. Repeat echocardiogram continues to reveal preserved left ventricular systolic function with ejection fraction 60-65%. There is moderate aortic stenosis and moderate to severe mitral stenosis along with moderate to severe pulmonary hypertension with an RVSP of 60 mmHg. She remains on Lasix 40 mg IV push every 8 hours. Currently in a negative balance. She is down 2 more kg. White count 16.1. Hemoglobin 8.9. Creatinine 0.76. She remains on vancomycin. Objective - Vital Signs Vital signs: Vital Signs Temp 98.1 F 06/03/18 04:00 Pulse 80 06/03/18 08:00 Resp 16 06/03/18 08:00 BP 118/49 06/03/18 08:00 Pulse Ox 99 06/03/18 08:00 Intake & Output 06/02/18 06/03/18 06/03/18 18:59 06:59 18:59 Intake Total 477 678 10 Output Total 1025 715 Balance -548 -37 10 Weight 101.1 kg Intake: IV 477 678 10 Potassium Chloride 10 meq 200 In Water For Injection 1 100ml.bag @ 100 mls/hr IVPB Q1H NIRANJAN Rx#: [id number] Sodium Chloride 0.9% 1, 110 80 10 000 ml @ 10 mls/hr IV . Q24H NIRANJAN Rx#:[id number] Vancomycin 1,500 mg In 167 Sodium Chloride 0.9% 250 ml @ 125 mls/hr IVPB Q24H NIRANJAN Rx#:[id number] Vancomycin 1,750 mg In 598 Sodium Chloride 0.9% 500 ml @ 166.667 mls/hr IVPB Q16H NIRANJAN Rx#:[id number] Output: Urine 1025 715 Other: Voiding Method Indwelling Catheter Indwelling Catheter ABP, PAP, CO, CI - Last Documented Arterial Blood Pressure 24/24 - Exam GENERAL EXAM: Alert, in slight respiratory distress. Mainly BiPAP dependent. HEAD: Normocephalic. EYES: Normal reaction of pupils, equal size. NOSE: Clear with pink turbinates. THROAT: No erythema or exudates. NECK: No masses, no JVD. CHEST: No chest wall deformity. LUNGS: Equal air entry with crackles in the posterior bases. CVS: S1 and S2 normal with positive murmur, irregular rhythm. ABDOMEN: No hepatosplenomegaly, normal bowel sounds, no guarding or rigidity. SPINE: No scoliosis or deformity SKIN: No rashes CENTRAL NERVOUS SYSTEM: No focal deficits, tone is normal in all 4 extremities. EXTREMITIES: There is 1-2+ peripheral edema. No clubbing, no cyanosis. Peripheral pulses are intact. - Labs CBC & Chem 7: 06/03/18 04:58 06/03/18 04:58 Labs: Abnormal Lab Results - Last 24 Hours (Table) 06/02/18 06/02/18 06/02/18 Range/Units 04:10 11:30 11:49 WBC (3.8-10.6) k/uL RBC (3.80-5.40) m/uL Hgb (11.4-16.0) gm/dL Hct (34.0-46.0) % MCHC (31.0-37.0) g/dL RDW (11.5-15.5) % Plt Count (150-450) k/uL Neutrophils # (1.3-7.7) k/uL Lymphocytes # (1.0-4.8) k/uL PT 12.1 H (9.0-12.0) sec INR 1.3 H (<1.2) APTT 21.8 L (22.0-30.0) sec Chloride (98-107) mmol/L Carbon Dioxide (22-30) mmol/L BUN (7-17) mg/dL Glucose (74-99) mg/dL POC Glucose (mg/dL) 221 H (75-99) mg/dL Calcium (8.4-10.2) mg/dL Magnesium 2.4 H (1.6-2.3) mg/dL 06/02/18 06/02/18 06/03/18 Range/Units 17:20 20:25 04:58 WBC 16.1 H (3.8-10.6) k/uL RBC 3.11 L (3.80-5.40) m/uL Hgb 8.9 L (11.4-16.0) gm/dL Hct 28.9 L (34.0-46.0) % MCHC 30.8 L (31.0-37.0) g/dL RDW 18.6 H (11.5-15.5) % Plt Count 59 L (150-450) k/uL Neutrophils # 15.3 H (1.3-7.7) k/uL Lymphocytes # 0.2 L (1.0-4.8) k/uL PT (9.0-12.0) sec INR (<1.2) APTT (22.0-30.0) sec Chloride (98-107) mmol/L Carbon Dioxide (22-30) mmol/L BUN (7-17) mg/dL Glucose (74-99) mg/dL POC Glucose (mg/dL) 167 H 190 H (75-99) mg/dL Calcium (8.4-10.2) mg/dL Magnesium (1.6-2.3) mg/dL 06/03/18 06/03/18 Range/Units 04:58 07:28 WBC (3.8-10.6) k/uL RBC (3.80-5.40) m/uL Hgb (11.4-16.0) gm/dL Hct (34.0-46.0) % MCHC (31.0-37.0) g/dL RDW (11.5-15.5) % Plt Count (150-450) k/uL Neutrophils # (1.3-7.7) k/uL Lymphocytes # (1.0-4.8) k/uL PT (9.0-12.0) sec INR (<1.2) APTT (22.0-30.0) sec Chloride 96 L (98-107) mmol/L Carbon Dioxide 40 H* (22-30) mmol/L BUN 54 H (7-17) mg/dL Glucose 186 H (74-99) mg/dL POC Glucose (mg/dL) 191 H (75-99) mg/dL Calcium 8.2 L (8.4-10.2) mg/dL Magnesium (1.6-2.3) mg/dL Assessment and Plan Assessment: Assessment 1 acute hypoxic respiratory failure with bilateral lower lobe pneumonia secondary to MRSA and the patient is currently on IV vancomycin. In addition, there is a component of pulmonary edema secondary to CHF/valvular heart disease. The patient has severe aortic stenosis and severe mitral stenosis and secondary pulmonary hypertension. Note that subsequent chest x-ray showed development of pulmonary edema and the CAT scan of the chest confirmed the findings. The patient is back on diuretics for now. She is in a negative fluid balance. Mainly BiPAP dependent. 2 bilateral lower lobe pneumonia with airspace disease and consolidations. This is a MRSA pneumonia which is being treated with vancomycin. 3 acute cardiac pulmonary arrest with brief loss in progress where the patient received CPR and received a dose of epinephrine with return of spontaneous circulation. Currently on no pressors. No signs of any hypoxic encephalopathy and the patient was given a brief sedation holiday and she was able to follow simple commands without any major difficulties 4 lactic acidosis secondary to above, improving 5 leukocytosis secondary to above, and the white cell count is down to 16.1. 6 morbid obesity with a BMI of 43.4 7 obstructive sleep apnea 8 severe persistent bronchial asthma 9 history of right hemidiaphragmatic plication for unilateral paralysis 10 moderate to severe severe aortic stenosis and mitral stenosis, with a preserved LV function as evident on the echocardiogram 11 history of TIA 12 nephrolithiasis 13 gouty arthritis 14 hypothyroidism 13 hypertension 16 hyperlipidemia 17 history of atrial fibrillation , and the patient was taken Rythmol at home and currently she is on amiodarone 200 mg by mouth twice a day. 18 acid reflux 19 gout 20 degenerative arthritis 21 episodes of SVT, and currently the patient is atrial fibrillation with a controlled rate and she is currently on amiodarone 200 mg by mouth twice a day and Eliquis 5 mg by mouth twice a day for long-term anticoagulation. Her echocardiogram shows a preserved LV function. Plan: The patient was seen and evaluated by Dr. Whatley. Chest x-ray and labs were all reviewed. The patient patient still continues to require BiPAP support. Chest x-ray essentially unchanged. She is maintained on Lasix 40 mg IV push every 8 hours for now. Her weight is down another two kilograms. We'll continue with vancomycin. Continue bronchodilators and steroids. Continue Diamox. She is anticoagulated with Eliquis. Amiodarone and Cardizem for rate control. Her family was present at the bedside has been updated on her condition. We will continue to follow and make further recommendations based on her clinical status. Overall prognosis remains quite guarded and poor. I, the cosigning physician, performed a history & physical examination of the patient. Lungs sounds with crackles in the bilateral posterior bases. Maintaining good O2 saturations in the 90s on 45% FiO2 per BiPAP. I discussed the assessment and plan of care with my nurse practitioner, Itzel Odom. I attest to the above note as dictated by her.
[2018-06-03] MEDS: methylPREDNISolone SOD SUCCI 40 MG/ML 1 ML VIAL IV SCH ×3 (09:37→23:55)
[2018-06-03] MEDS: FUROSEMIDE 10 MG/ML 4 ML VIAL IV SCH ×3 (09:37→23:55)
[2018-06-03] MEDS: LEVOTHYROXINE 50 MCG TAB PO SCH (09:37)
[2018-06-03] MEDS: DILTIAZEM ORAL 30 MG TAB PO SCH ×3 (09:38→21:09)
[2018-06-03] MEDS: AMIODARONE 200 MG TAB PO SCH ×2 (09:38→21:09)
[2018-06-03] MEDS: PANTOPRAZOLE 40 MG TABLET PO SCH (09:38)
[2018-06-03] MEDS: INSULIN ASPART 100 UNIT/ML 1 ML 10 ML VIAL SQ SCH ×4 (09:48→21:10)
[2018-06-03] MEDS: APIXABAN 5 MG TAB PO SCH ×2 (09:50→20:52)
[2018-06-03] MEDS: SODIUM CHLORIDE 0.9% 1,000 ML IV SCH (10:50)
[2018-06-03 12:43] LABS: Glucose,Whole Blood 175 mg/dL (75-99)
[2018-06-03] MEDS ORDERED: VANCOMYCIN TROUGH DUE 1 EACH MISC MISCELLANE ONE (13:00)
[2018-06-03 14:33] LABS: Magnesium 2.4 mg/dL (1.6-2.3); Phosphorus 3.4 mg/dL (2.5-4.5)
[2018-06-03 14:56] LABS: INR 1.3 (<1.2)
[2018-06-03 15:05] LABS: Partial Thromboplastin Time 20.1 sec (22.0-30.0)
[2018-06-03] MEDS: VANCOMYCIN 1,750 MG in SODIUM CHLORIDE 0.9% 500 ML IVPB SCH (15:54)
[2018-06-03 17:04] LABS: Glucose,Whole Blood 181 mg/dL (75-99)
--- NOTE | 2018-06-03 17:44 | PN ---
PROGRESS NOTE Mrs. Tuttle is an 78-year-old female who presented with respiratory failure and requiring mechanical ventilation. She was diagnosed with MRSA pneumonia. She is extubated, but continues to be on BiPAP. She appears to be tired. She denies any symptoms of chest discomfort. No dizziness. She continues to be in atrial fibrillation with controlled ventricular response, hemodynamically stable. She had a repeat echocardiogram yesterday that showed a preserved left ventricular size and systolic function. There was a mean gradient of 19 mmHg across the aortic valve with mitral regurgitation and a mean gradient of 7 mmHg across the mitral valve with moderate to severe pulmonary hypertension with a gradient of 61 mmHg. PHYSICAL EXAMINATION: Her blood pressure is 114/40 with a heart rate in the 80s, lungs with decreased air exchange, more on the right base. HEART: Irregular regular, S1, S2. No S3 with systolic murmur. No diastolic murmur. No rub. ABDOMEN: Soft and nontender, obese. EXTREMITIES: No significant edema. LAB DATA: Revealed BUN and creatinine 54 and 0.76. Bicarb 40. Hemoglobin of 8.9. IMPRESSION: 1. Respiratory failure, status post methicillin-resistant Staphylococcus aureus infection with very slow progress. 2. Atrial fibrillation, persistent. 3. Aortic and subaortic gradient. 4. Obesity. 5. Status post right hemidiaphragmatic plication for unilateral paralysis. RECOMMENDATION: Will continue her supportive care at this time. Unfortunately, the prognosis remains quite guarded. The case was discussed with Dr. Whatley and the family. MMODL / IJN: [id number] /
--- NOTE | 2018-06-03 19:32 | P.PN ---
Subjective Patient is on 73-year-old female with a known history of obstructive sleep apnea on biPAP, Hypothyroidism, valvular heart disease with aortic stenosis and congestive heart failure and multiple other medical problems including morbid obesity presented to hospital with worsening shortness of breath. Patient was at [facility] studies where she had progressive shortness of breath. Patient's pulse ox was low 70s upon EMS arrival. Patient was placed on 100% nonrebreather but the patient remained hypoxic. Patient was placed on BiPAP. And was transferred to ER. Patient was given breathing treatments while in the ER without much relief. Patient was subsequently intubated due to acute hypoxic respiratory failure. Currently patient is intubated and is in the medical intensive care unit. Chest x-ray showed no evidence of pneumothorax. Bilateral air space disease was present in the perihilar region in the lower lobes bilaterally right more than left. WC count was 22 on admission. Lactic acid 5.9 on admission 05/27/2018 Patient remains in critical condition. Is not improving much. And family considering comfort care 06/03/2018 pt is on BiPAP today , open eyes with some movement of extremities. saturating 99% on BiPAP. pt presents with Hypoxia needed intubation eventually, follow up CXR showed unchanged exam with mild pulmonary congestion , CT of the thorax : pulmonary edema with mild B/L pleural effusion , improving. neighborhood aide preferred no thoracosentasis, Echo: Severe LVH, EF 60-65%, moderate , moderate to sever MS , severe MR. . pt is been treated with high dose steroids, andEliquis, amiodarone and cardizem and lasix 40 mg IV q8hr , pt is currently extubated and improving slowly with guarded prognosis. 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 leukocytosis but pt is on steroids . Review of systems: N/A Objective - Vital Signs Vital signs: Vital Signs Temp 98.7 F 06/03/18 16:00 Pulse 86 06/03/18 16:28 Resp 26 H 06/03/18 16:00 BP 131/51 06/03/18 16:00 Pulse Ox 99 06/03/18 16:00 Intake & Output 06/03/18 06/03/18 06/04/18 06:59 18:59 06:59 Intake Total 678 50 Output Total 715 710 Balance -37 -660 Weight 101.1 kg Intake: IV 678 50 Sodium Chloride 0.9% 1, 80 50 000 ml @ 10 mls/hr IV . Q24H NIRANJAN Rx#:[id number] Vancomycin 1,750 mg In 598 Sodium Chloride 0.9% 500 ml @ 166.667 mls/hr IVPB Q16H NIARNJAN Rx#:[id number] Output: Urine 715 710 Other: Voiding Method Indwelling Catheter Indwelling Catheter ABP, PAP, CO, CI - Last Documented Arterial Blood Pressure - Exam GENERAL: The patient is alert and oriented x3, not in any acute distress. Obese. HEENT: Pupils are round and equally reacting to light. EOMI. No scleral icterus. No conjunctival pallor. Normocephalic, atraumatic. No pharyngeal erythema. No thyromegaly. CARDIOVASCULAR: S1 and S2 present. No murmurs, rubs, or gallops. PULMONARY: Gross breath sounds is in respiratory distress on BiPAP ABDOMEN: Soft, nontender, nondistended, normoactive bowel sounds. No palpable organomegaly. MUSCULOSKELETAL: No joint swelling or deformity. EXTREMITIES: No cyanosis, clubbing, or pedal edema. NEUROLOGICAL: Gross neurological examination did not reveal any focal deficits. SKIN: No rashes. - Labs CBC & Chem 7: 06/03/18 04:58 06/03/18 04:58 Labs: Abnormal Lab Results - Last 24 Hours (Table) 06/02/18 06/03/18 06/03/18 Range/Units 20:25 04:58 04:58 WBC 16.1 H (3.8-10.6) k/uL RBC 3.11 L (3.80-5.40) m/uL Hgb 8.9 L (11.4-16.0) gm/dL Hct 28.9 L (34.0-46.0) % MCHC 30.8 L (31.0-37.0) g/dL RDW 18.6 H (11.5-15.5) % Plt Count 59 L (150-450) k/uL Neutrophils # 15.3 H (1.3-7.7) k/uL Lymphocytes # 0.2 L (1.0-4.8) k/uL INR (<1.2) APTT (22.0-30.0) sec Chloride 96 L (98-107) mmol/L Carbon Dioxide 40 H* (22-30) mmol/L BUN 54 H (7-17) mg/dL Glucose 186 H (74-99) mg/dL POC Glucose (mg/dL) 190 H (75-99) mg/dL Calcium 8.2 L (8.4-10.2) mg/dL Magnesium (1.6-2.3) mg/dL 06/03/18 06/03/18 06/03/18 Range/Units 04:58 07:28 12:42 WBC (3.8-10.6) k/uL RBC (3.80-5.40) m/uL Hgb (11.4-16.0) gm/dL Hct (34.0-46.0) % MCHC (31.0-37.0) g/dL RDW (11.5-15.5) % Plt Count (150-450) k/uL Neutrophils # (1.3-7.7) k/uL Lymphocytes # (1.0-4.8) k/uL INR (<1.2) APTT (22.0-30.0) sec Chloride (98-107) mmol/L Carbon Dioxide (22-30) mmol/L BUN (7-17) mg/dL Glucose (74-99) mg/dL POC Glucose (mg/dL) 191 H 175 H (75-99) mg/dL Calcium (8.4-10.2) mg/dL Magnesium 2.4 H (1.6-2.3) mg/dL 06/03/18 06/03/18 Range/Units 14:32 17:02 WBC (3.8-10.6) k/uL RBC (3.80-5.40) m/uL Hgb (11.4-16.0) gm/dL Hct (34.0-46.0) % MCHC (31.0-37.0) g/dL RDW (11.5-15.5) % Plt Count (150-450) k/uL Neutrophils # (1.3-7.7) k/uL Lymphocytes # (1.0-4.8) k/uL INR 1.3 H (<1.2) APTT 20.1 L (22.0-30.0) sec Chloride (98-107) mmol/L Carbon Dioxide (22-30) mmol/L BUN (7-17) mg/dL Glucose (74-99) mg/dL POC Glucose (mg/dL) 181 H (75-99) mg/dL Calcium (8.4-10.2) mg/dL Magnesium (1.6-2.3) mg/dL Assessment and Plan Plan: Assessment and Plan Plan: Acute hypoxic respiratory failure. Multifactorial secondary to bilateral lower lobe pneumonia ,CHF. extubated to BiPAP (Bilateral lower lobe pneumonia. Right greater than left), patient is on IV vancomycin patient the bronchial cultures are positive for staph aureus patient appears to have staph early pneumonia pulmonary edema, on iv lasix 40 mg Q8H Acute cardio pulmonary arrest with brief loss of pulse status post CPR and a dose of epinephrine with return of spontaneous circulation. Lactic acidosis 5.9 on admission improving, recovered Sepsis secondary to pneumonia Obstructive sleep apnea on BiPAP at home Morbid obesity with BMI 44.9 with possible underlying obesity hypoventilation Acute on chronic CHF with systolic dysfunction as well as valvular heart disease History of right hemidiaphragmatic plication for unilateral paralysis History of TIA Nephrolithiasis Osteoarthritis Hypothyroidism with low free T4 level and elevated TSH. Uncontrolled History of atrial fibrillation. Paroxysmal. Currently in sinus rhythm on Rythmol GERD Gout status post bronchoscopy with lavage of right lower lobe No Code, no CPR as per family's wishes. Her overall prognosis and poor considering her obesity hypoventilation syndrome morbid obesity sleep apnea and possibility of COPD, acute CHF. Patient does use oxygen at home does use BiPAP at home at nighttime. Patient is on BiPAP at this point of time without BiPAP patient desaturates very quickly.
[2018-06-03 20:55] LABS: Glucose,Whole Blood 133 mg/dL (75-99)
[2018-06-04] MEDS: ALPRAZolam 0.25 MG TAB PO PRN ×2 (02:29→21:25)
[2018-06-04 05:11] LABS: Anisocytosis Slight; Basophils % (A) 0 %; Eosinophils % (A) 0 %; HCT 27.8 % (34.0-46.0); HGB 8.7 gm/dL (11.4-16.0); Lymphocytes # (A) 0.2 k/uL (1.0-4.8); Lymphocytes % (A) 1 %; MCH 28.9 pg (25.0-35.0); MCHC 31.2 g/dL (31.0-37.0); MCV 92.8 fL (80.0-100.0); Macrocytosis Slight; Mean Platelet Volume 8.4; Monocytes # (A) 0.4 k/uL (0-1.0); Monocytes % (A) 3 %; Neutrophils # (A) 13.3 k/uL (1.3-7.7); Neutrophils % (A) 95 %; RDW 19.1 % (11.5-15.5)
[2018-06-04 05:12] LABS: Platelet Count 53 k/uL (150-450)
[2018-06-04 05:21] LABS: Blood Urea Nitrogen 53 mg/dL (7-17); Calcium 8.3 mg/dL (8.4-10.2); Chloride 93 mmol/L (98-107); Glucose 156 mg/dL (74-99); Potassium 3.6 mmol/L (3.5-5.1); Sodium 137 mmol/L (137-145)
[2018-06-04 05:29] LABS: Anion Gap 3 mmol/L
[2018-06-04 05:31] LABS: Carbon Dioxide 41 mmol/L (22-30)
[2018-06-04] MEDS: VANCOMYCIN 1,750 MG in SODIUM CHLORIDE 0.9% 500 ML IVPB SCH ×2 (06:20→23:15)
--- NOTE | 2018-06-04 07:07 | XR ---
EXAMINATION TYPE: XR chest 1V portable DATE OF EXAM: 06/04/2018 HISTORY: rule out pleural effusions. REFERENCE: Date 318. FINDINGS: Unfortunately, the patient's chin projects over the upper chest on the right. There is a continued opacity at the right lung base which may partially represent elevation of the ri ght hemidiaphragm. Right basilar airspace disease is not excluded. There are small, bilateral effusio ns. Heart size is obscured. There is vascular congestion without artemio edema. IMPRESSION: 1. CONTINUING OPACITY, RIGHT LUNG BASE. 2. IMPROVED VASCULAR CONGESTION. 3. SMALL, BILATERAL EFFUSIONS.
[2018-06-04 07:20] LABS: Glucose,Whole Blood 164 mg/dL (75-99)
[2018-06-04] MEDS: IPRATROPIUM-ALBUTEROL 3 ML NEB INHALATION SCH ×4 (07:43→20:13)
[2018-06-04] MEDS: POTASSIUM CHLORIDE 20 MEQ in WATER FOR INJECTION 1 100ML.BAG IVPB SCH ×3 (07:57→10:14)
[2018-06-04] MEDS: INSULIN ASPART 100 UNIT/ML 1 ML 10 ML VIAL SQ SCH ×4 (08:00→21:25)
[2018-06-04] MEDS: AMIODARONE 200 MG TAB PO SCH ×2 (08:00→21:25)
[2018-06-04] MEDS: methylPREDNISolone SOD SUCCI 40 MG/ML 1 ML VIAL IV SCH ×3 (08:01→23:15)
[2018-06-04] MEDS: APIXABAN 5 MG TAB PO SCH (08:02)
[2018-06-04] MEDS: DILTIAZEM ORAL 30 MG TAB PO SCH ×3 (08:02→21:25)
[2018-06-04] MEDS: FUROSEMIDE 10 MG/ML 4 ML VIAL IV SCH ×3 (08:02→23:15)
[2018-06-04] MEDS: LEVOTHYROXINE 50 MCG TAB PO SCH (08:02)
[2018-06-04] MEDS: PANTOPRAZOLE 40 MG TABLET PO SCH (08:03)
[2018-06-04] MEDS: MAG HYDROX/AL HYDROX/SIMETH 30 ML, LIDOCAINE VISCOUS 30 ML, NYSTATIN 100,000 UNIT/ML SU... PO PRN ×3 (08:05)
[2018-06-04] MEDS ORDERED: RX INFO: IV CONTRAST WAS GIVEN 1 EACH MISC MISCELLANE PRN (09:01)
--- NOTE | 2018-06-04 09:01 | P.PN ---
Subjective Progress Note Date: 06/04/18 Acute hypoxic respiratory failure with bilateral lower lobe pneumonia secondary to MRSA. On today's evaluation of 05/30/2018, the patient is feeling better and the patient is awake and alert and following commands and answering questions appropriately. She has bilateral MRSA pneumonia for which she is on IV vancomycin. She is afebrile hemodynamically stable. She is on high flow oxygen at 45 liters and the patient's pulse ox is around 99%. Chest x-ray still showing right lower lobe pulmonary consolidation and elevation of the right hemidiaphragm. The patient is also being diuresis with IV Lasix 40 mg every 8 hours pH has been a negative fluid balance. The patient has been also receiving Diamox for underlying metabolic alkalosis. Her most recent serum bicarb is up to 39 and the creatinine is at 0.7. The white cell count is down to 19.6. She is tolerating her diet. She is a bit weak and she is working with physical therapy. She is utilizing BiPAP overnight at a pressure of 16/8 cm of water. Otherwise, she is developed a slow progress over the past few days. On today's evaluation of 05/31/2018, the patient is still in hypoxic respiratory failure and the patient is developed diffuse bilateral pulmonary infiltrates and this was noted on a chest x-ray that was done following the insertion of the PICC line catheter. The patient remains on IV vancomycin regarding MRSA pneumonia. The patient is hemodynamically stable. The patient is on high flow oxygen at 55%, and her pulse ox in the order of 97%. She is a bit more short of breath compared to yesterday. I stopped her Diamox yesterday and I cut down the Lasix to once a day. She remains in a negative fluid balance. She is a bit alkalotic with a serum bicarb of 44 on today's blood work. White cell count is also up to 23.7. The patient is being treated with IV vancomycin. Her cardiac rhythm is atrial fibrillation. The patient is on amiodarone 200 mg by mouth twice a day. The patient is on oral Cardizem 30 mg by mouth 3 times a day. The patient is also on bronchodilators and systemic steroids. On 06/01/2018 I'm seeing this patient for a follow-up. The patient is not doing the best. She is a bit lethargic. She slept all night yesterday. This morning she is feeling weak and she is on fish short of breath on high flow oxygen at 15 right percent FiO2. Pulse ox around 94% on high flow oxygen. The CAT scan of the chest was done yesterday showed evidence of pulmonary edema. There was patchy infiltrates bilaterally likely on the basis of pulmonary edema. There is also small bilateral pleural effusion. The bibasilar compressive atelectatic changes were essentially improving. Based on these findings, increased the patient's Lasix up to 40 g twice a day on that he started the Diamox. The patient is diuresing. The patient is a negative fluid balance. A repeat chest x-ray from today shows improvement in the pulmonary edema. Nevertheless residual edema in the upper lobes and persistent consolidation of the right lower lobe along with small bilateral pleural effusion. The echocardiogram that was done at time of admission showed an ejection fraction of 50-55% and the left atrium was severely dilated. The patient has severe aortic stenosis present. The patient also has moderate degree of mitral regurgitation and severe mitral stenosis. There is also moderate to severe pulmonary hypertension present. As such there is obvious valvular heart disease which could be contributing to the patient's pulmonary edema and hypoxic respiratory failure. The patient is still on vancomycin regarding MRSA pneumonia. Vancomycin levels are being monitored on a regular basis. Renal function is still stable. The serum bicarb is 42. The patient is seen today 06/02/2018 in follow-up in the intensive care unit. She is currently awake and alert. She had an echocardiogram performed this morning. She is somewhat dyspneic currently on the AirVo currently at oxygen flow rate of 35 and 55% FiO2. O2 saturations were in the upper 80s. She is alternating back and forth between the BiPAP 16/8 and 45% FiO2 which keeps her O2 saturations in the 90s. Chest x-ray continues to show small to moderate right and small left pleural effusions with adjacent atelectasis. Persistent but improving interstitial pulmonary edema. She currently denies any significant discomfort. No chest pain or palpitations. Hemodynamically stable. Currently afebrile. White count 17.6. Hemoglobin 9.0. Creatinine 0.70. Bicarb 42. She remains on Lasix 40 mg IV push every 8 hours. She is continued on vancomycin. The patient is seen again today 06/03/2018 in follow-up in the intensive care unit. She remains BiPAP dependent at this point. Current settings 16/8 with an FiO2 of 45% to maintain O2 saturations in the 90s. Today's chest x-ray is basically unchanged showing mild pulmonary vascular congestion and trace pleural effusions. There is persistent right hemidiaphragm elevation. Repeat echocardiogram continues to reveal preserved left ventricular systolic function with ejection fraction 60-65%. There is moderate aortic stenosis and moderate to severe mitral stenosis along with moderate to severe pulmonary hypertension with an RVSP of 60 mmHg. She remains on Lasix 40 mg IV push every 8 hours. Currently in a negative balance. She is down 2 more kg. White count 16.1. Hemoglobin 8.9. Creatinine 0.76. She remains on vancomycin. On 06/04/2018, I'm seeing this patient for a follow-up. Unfortunately much much of progress over the past few days. Still on high flow oxygen. She is alternating with a BiPAP at a pressure of 16/8 cm of water. She is getting progressively more lethargic. Echocardiogram was repeated and there is no interval change. She has severe MS and aortic stenosis and preserved LV function. Remains on Lasix 3 times a day 40 mg IV push and Diamox. The blood work from today shows a white cell count of 14.0. Bicarb level of 41. BUN of 53. Creatinine of 0.7. Urine output is adequate and the patient is a negative fluid balance. Chest x-ray shows continuing opacity of the right lung. Improved vasculature and vascular congestion. Small bilateral pleural effusions. She remains on vancomycin. Had a lengthy discussion with the family. Her respiratory failure is thought to be related to staphylococcal pneumonia and valvular heart disease. Objective - Vital Signs Vital signs: Vital Signs Temp 97.8 F 06/04/18 04:00 Pulse 78 06/04/18 07:53 Resp 30 H 06/04/18 04:00 BP 110/51 06/04/18 04:00 Pulse Ox 99 06/04/18 04:00 Intake & Output 06/03/18 06/04/18 06/04/18 18:59 06:59 18:59 Intake Total 50 120 Output Total 710 1030 Balance -660 -910 Weight 101.1 kg Intake: IV 50 120 Sodium Chloride 0.9% 1, 50 120 000 ml @ 10 mls/hr IV . Q24H [facility] Rx#:[id number] Output: Urine 710 1030 Other: Voiding Method Indwelling Catheter Indwelling Catheter ABP, PAP, CO, CI - Last Documented Arterial Blood Pressure - Exam No acute distress, Nasal O2 in place and the patient on high flow oxygen at 65 L /m. Patient is resting comfortably in bed and the patient shows no signs of an acute respiratory distress at this point in time. She is able to speak full Sentences. HEENT examination is grossly unremarkable. Mucous membranes are moist. Neck supple. Full range of motion. No adenopathy thyromegaly or neck vein distention. Cardiovascular examination reveals regular rhythm rate. S1-S2 normal. No S3 or S4. A loud systolic murmur of aortic stenosis is noted.. No murmurs throughout the precordium more so in the apex radiating to the neck. Lungs are diminished specially in the right lung base. Few crackles in the lung bases. No significant wheezes can be appreciated. Breath sounds overall are diminished bilaterally more so on the right lung base. Abdomen soft. Bowel sounds are not noted. No masses or tenderness. Abdominal exam revealed normal bowel sounds. The abdomen was soft, non-tender, and without masses, organomegaly, or appreciable enlargement of the abdominal aorta. Extremities are intact. No cyanosis clubbing or edema. Examination of the skin revealed no evidence of significant rashes, suspicious appearing nevi or other concerning lesions. Neurologic examination is brief but nonfocal. - Labs CBC & Chem 7: 06/04/18 05:00 06/04/18 05:00 Labs: Abnormal Lab Results - Last 24 Hours (Table) 06/03/18 06/03/18 06/03/18 Range/Units 04:58 12:42 14:32 WBC (3.8-10.6) k/uL RBC (3.80-5.40) m/uL Hgb (11.4-16.0) gm/dL Hct (34.0-46.0) % RDW (11.5-15.5) % Plt Count (150-450) k/uL Neutrophils # (1.3-7.7) k/uL Lymphocytes # (1.0-4.8) k/uL INR 1.3 H (<1.2) APTT 20.1 L (22.0-30.0) sec Chloride (98-107) mmol/L Carbon Dioxide (22-30) mmol/L BUN (7-17) mg/dL Glucose (74-99) mg/dL POC Glucose (mg/dL) 175 H (75-99) mg/dL Calcium (8.4-10.2) mg/dL Magnesium 2.4 H (1.6-2.3) mg/dL 06/03/18 06/03/18 06/04/18 Range/Units 17:02 20:54 05:00 WBC 14.0 H (3.8-10.6) k/uL RBC 3.00 L (3.80-5.40) m/uL Hgb 8.7 L (11.4-16.0) gm/dL Hct 27.8 L (34.0-46.0) % RDW 19.1 H (11.5-15.5) % Plt Count 53 L (150-450) k/uL Neutrophils # 13.3 H (1.3-7.7) k/uL Lymphocytes # 0.2 L (1.0-4.8) k/uL INR (<1.2) APTT (22.0-30.0) sec Chloride (98-107) mmol/L Carbon Dioxide (22-30) mmol/L BUN (7-17) mg/dL Glucose (74-99) mg/dL POC Glucose (mg/dL) 181 H 133 H (75-99) mg/dL Calcium (8.4-10.2) mg/dL Magnesium (1.6-2.3) mg/dL 06/04/18 06/04/18 Range/Units 05:00 07:19 WBC (3.8-10.6) k/uL RBC (3.80-5.40) m/uL Hgb (11.4-16.0) gm/dL Hct (34.0-46.0) % RDW (11.5-15.5) % Plt Count (150-450) k/uL Neutrophils # (1.3-7.7) k/uL Lymphocytes # (1.0-4.8) k/uL INR (<1.2) APTT (22.0-30.0) sec Chloride 93 L (98-107) mmol/L Carbon Dioxide 41 H* (22-30) mmol/L BUN 53 H (7-17) mg/dL Glucose 156 H (74-99) mg/dL POC Glucose (mg/dL) 164 H (75-99) mg/dL Calcium 8.3 L (8.4-10.2) mg/dL Magnesium (1.6-2.3) mg/dL Assessment and Plan Plan: 1 acute hypoxic respiratory failure with bilateral lower lobe pneumonia secondary to MRSA and the patient is currently on IV vancomycin. In addition, there is a component of pulmonary edema secondary to CHF/valvular heart disease. We have released to a plateau or breast cancer in terms of recovery. Patient has responded to initial antibiotics and diuretics. At this point in time she continues to be respiratory failure requiring high flow oxygen and or BiPAP. We'll repeat one more CAT scan without contrast to characterize opacity of the right lung base and act accordingly. Meanwhile continue the diuretics. Continue the antibiotics. Continue the rest of the supportive care including support with use of high flow oxygen and BiPAP. The possibility of the right lower lobe pneumonia is still being entertained. The patient was found to have MRSA and I think is reasonable to broaden the antibiotic coverage especially with this pain still and the lack of improvement. 2 bilateral lower lobe pneumonia with airspace disease and consolidations. This is a MRSA pneumonia which is being treated with vancomycin. 3 acute cardiac pulmonary arrest with brief loss in progress where the patient received CPR and received a dose of epinephrine with return of spontaneous circulation. Currently on no pressors. No signs of any hypoxic encephalopathy and the patient was given a brief sedation holiday and she was able to follow simple commands without any major difficulties 4 lactic acidosis secondary to above, improving 5 leukocytosis secondary to above, and the white cell count is down to 14 6 morbid obesity with a BMI of 43.4 7 obstructive sleep apnea 8 severe persistent bronchial asthma 9 history of right hemidiaphragmatic plication for unilateral paralysis 10 moderate to severe severe aortic stenosis and mitral stenosis, with a preserved LV function as evident on the echocardiogram 11 history of TIA 12 nephrolithiasis 13 gouty arthritis 14 hypothyroidism 13 hypertension 16 hyperlipidemia 17 history of atrial fibrillation , and the patient was taken Rythmol at home and currently she is on amiodarone 200 mg by mouth twice a day. 18 acid reflux 19 gout 20 degenerative arthritis 21 episodes of SVT, and currently the patient is atrial fibrillation with a controlled rate and she is currently on amiodarone 200 mg by mouth twice a day and Eliquis 5 mg by mouth twice a day for long-term anticoagulation. Her echocardiogram shows a preserved LV function. 22 thrombocytopenia Plan Check coags. Monitor the platelet counts. Add IV cefepime 2 g every 12 hours. Continue the diuretics. Hold Eliquis in regards to her thrombocytopenia. Repeat the CAT scan of the chest without contrast. We'll continue to follow. Prognosis poor specially with her lack of recovery. She has severe valvular heart disease and she is progressively getting more debilitated.
[2018-06-04] MEDS: CEFEPIME 2 GM in SODIUM CHLORIDE 0.9% 50 ML IVPB SCH ×2 (10:13→21:25)
--- NOTE | 2018-06-04 11:20 | CT ---
EXAMINATION TYPE: CT chest w con DATE OF EXAM: 06/04/2018 COMPARISON: Previous study dated 05/31/2018 HISTORY: Pneumonia CT DLP: 502.90 mGycm Automated exposure control for dose reduction was used. CONTRAST: CT scan of the chest is performed with IV Contrast, patient injected with 100 mL of Isovue 300. FINDINGS: There are moderate, bilateral effusions. There is associated bibasilar atelectasis. There i s patchy groundglass opacity throughout both lungs. This may be due to pulmonary edema or atypical pn eumonia. The major bronchi are patent. There is no significant axillary, internal mammary, mediastinal or hilar adenopathy. I do not see evidence of pulmonary embolus. The aorta is normal in caliber. The heart is enlarged. Visualized upper abdominal structures are unremarkable. The gallbladder is been removed. There is moderate hypertrophic spondylosis within the spine. IMPRESSION: 1. MODERATE, BILATERAL EFFUSIONS WITH ASSOCIATED ATELECTASIS. 2. DIFFUSE, PATCHY GROUNDGLASS OPACITY THROUGHOUT BOTH LUNGS. THIS MAY BE SECONDARY TO PULMONARY CLARK A OR ATYPICAL PNEUMONIA. 3. CARDIOMEGALY. 4. DEGENERATIVE CHANGES WITHIN THE SPINE.
[2018-06-04 11:38] LABS: Glucose,Whole Blood 200 mg/dL (75-99)
[2018-06-04] MEDS: SODIUM CHLORIDE 0.9% 1,000 ML IV SCH (11:53)
[2018-06-04 13:36] LABS: Magnesium 2.3 mg/dL (1.6-2.3); Phosphorus 3.6 mg/dL (2.5-4.5)
--- NOTE | 2018-06-04 13:51 | P.PN ---
Subjective Patient is on 73-year-old female with a known history of obstructive sleep apnea on biPAP, Hypothyroidism, valvular heart disease with aortic stenosis and congestive heart failure and multiple other medical problems including morbid obesity presented to hospital with worsening shortness of breath. Patient was at [facility] studies where she had progressive shortness of breath. Patient's pulse ox was low 70s upon EMS arrival. Patient was placed on 100% nonrebreather but the patient remained hypoxic. Patient was placed on BiPAP. And was transferred to ER. Patient was given breathing treatments while in the ER without much relief. Patient was subsequently intubated due to acute hypoxic respiratory failure. Currently patient is intubated and is in the medical intensive care unit. Chest x-ray showed no evidence of pneumothorax. Bilateral air space disease was present in the perihilar region in the lower lobes bilaterally right more than left. WC count was 22 on admission. Lactic acid 5.9 on admission 05/27/2018 Patient remains in critical condition. Is not improving much. And family considering comfort care 06/03/2018 pt is on BiPAP today , open eyes with some movement of extremities. saturating 99% on BiPAP. pt presents with Hypoxia needed intubation eventually, follow up CXR showed unchanged exam with mild pulmonary congestion , CT of the thorax : pulmonary edema with mild B/L pleural effusion , improving. 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 . pt is been treated with high dose steroids, andEliquis, amiodarone and cardizem and lasix 40 mg IV q8hr , pt is currently extubated and improving slowly with guarded prognosis. 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 leukocytosis but pt is on steroids . 06/04/2018 Patient respiratory status remains the same with no change. Repeat CAT scan of the chest with IV contrast was done by pulmonary team showing moderate bilateral pleural effusion with atelectasis, with diffuse patchy ground glass opacities throughout both lungs secondary to pulmonary edema or atypical pneumonia As per staff, no plans for thoracocentesis currently Review of systems: N/A Objective - Vital Signs Vital signs: Vital Signs Temp 97.7 F 06/04/18 12:00 Pulse 78 06/04/18 12:00 Resp 24 06/04/18 12:00 BP 135/50 06/04/18 12:00 Pulse Ox 100 06/04/18 12:00 Intake & Output 06/03/18 06/04/18 06/04/18 18:59 06:59 18:59 Intake Total 50 120 Output Total 710 1030 80 Balance -660 -910 -80 Weight 101.1 kg Intake: IV 50 120 Sodium Chloride 0.9% 1, 50 120 000 ml @ 10 mls/hr IV . Q24H [facility] Rx#:[id number] Output: Urine 710 1030 80 Other: Voiding Method Indwelling Catheter Indwelling Catheter Indwelling Catheter ABP, PAP, CO, CI - Last Documented Arterial Blood Pressure - Exam GENERAL: The patient is alert and oriented x3, not in any acute distress. Obese. HEENT: Pupils are round and equally reacting to light. EOMI. No scleral icterus. No conjunctival pallor. Normocephalic, atraumatic. No pharyngeal erythema. No thyromegaly. CARDIOVASCULAR: S1 and S2 present. No murmurs, rubs, or gallops. PULMONARY: Gross breath sounds is in respiratory distress on BiPAP ABDOMEN: Soft, nontender, nondistended, normoactive bowel sounds. No palpable organomegaly. MUSCULOSKELETAL: No joint swelling or deformity. EXTREMITIES: No cyanosis, clubbing, or pedal edema. NEUROLOGICAL: Gross neurological examination did not reveal any focal deficits. SKIN: No rashes. - Labs CBC & Chem 7: 06/04/18 05:00 06/04/18 05:00 Labs: Abnormal Lab Results - Last 24 Hours (Table) 06/03/18 06/03/18 06/03/18 Range/Units 04:58 14:32 17:02 WBC (3.8-10.6) k/uL RBC (3.80-5.40) m/uL Hgb (11.4-16.0) gm/dL Hct (34.0-46.0) % RDW (11.5-15.5) % Plt Count (150-450) k/uL Neutrophils # (1.3-7.7) k/uL Lymphocytes # (1.0-4.8) k/uL INR 1.3 H (<1.2) APTT 20.1 L (22.0-30.0) sec Chloride (98-107) mmol/L Carbon Dioxide (22-30) mmol/L BUN (7-17) mg/dL Glucose (74-99) mg/dL POC Glucose (mg/dL) 181 H (75-99) mg/dL Calcium (8.4-10.2) mg/dL Magnesium 2.4 H (1.6-2.3) mg/dL 06/03/18 06/04/18 06/04/18 Range/Units 20:54 05:00 05:00 WBC 14.0 H (3.8-10.6) k/uL RBC 3.00 L (3.80-5.40) m/uL Hgb 8.7 L (11.4-16.0) gm/dL Hct 27.8 L (34.0-46.0) % RDW 19.1 H (11.5-15.5) % Plt Count 53 L (150-450) k/uL Neutrophils # 13.3 H (1.3-7.7) k/uL Lymphocytes # 0.2 L (1.0-4.8) k/uL INR (<1.2) APTT (22.0-30.0) sec Chloride 93 L (98-107) mmol/L Carbon Dioxide 41 H* (22-30) mmol/L BUN 53 H (7-17) mg/dL Glucose 156 H (74-99) mg/dL POC Glucose (mg/dL) 133 H (75-99) mg/dL Calcium 8.3 L (8.4-10.2) mg/dL Magnesium (1.6-2.3) mg/dL 06/04/18 06/04/18 Range/Units 07:19 11:36 WBC (3.8-10.6) k/uL RBC (3.80-5.40) m/uL Hgb (11.4-16.0) gm/dL Hct (34.0-46.0) % RDW (11.5-15.5) % Plt Count (150-450) k/uL Neutrophils # (1.3-7.7) k/uL Lymphocytes # (1.0-4.8) k/uL INR (<1.2) APTT (22.0-30.0) sec Chloride (98-107) mmol/L Carbon Dioxide (22-30) mmol/L BUN (7-17) mg/dL Glucose (74-99) mg/dL POC Glucose (mg/dL) 164 H 200 H (75-99) mg/dL Calcium (8.4-10.2) mg/dL Magnesium (1.6-2.3) mg/dL Assessment and Plan Plan: Assessment and Plan Plan: Acute hypoxic respiratory failure. Multifactorial secondary to bilateral lower lobe pneumonia ,CHF. extubated to BiPAP (Bilateral lower lobe pneumonia. Right greater than left), patient is on IV vancomycin patient the bronchial cultures are positive for staph aureus patient appears to have staph early pneumonia pulmonary edema, on iv lasix 40 mg Q8H Acute cardio pulmonary arrest with brief loss of pulse status post CPR and a dose of epinephrine with return of spontaneous circulation. Lactic acidosis 5.9 on admission improving, recovered Sepsis secondary to pneumonia Obstructive sleep apnea on BiPAP at home Morbid obesity with BMI 44.9 with possible underlying obesity hypoventilation Acute on chronic CHF with systolic dysfunction as well as valvular heart disease History of right hemidiaphragmatic plication for unilateral paralysis History of TIA Nephrolithiasis Osteoarthritis Hypothyroidism with low free T4 level and elevated TSH. Uncontrolled History of atrial fibrillation. Paroxysmal. Currently in sinus rhythm on Rythmol GERD Gout status post bronchoscopy with lavage of right lower lobe No Code, no CPR as per family's wishes. Her overall prognosis and poor considering her obesity hypoventilation syndrome morbid obesity sleep apnea and possibility of COPD, acute CHF. Patient does use oxygen at home does use BiPAP at home at nighttime. Patient is on BiPAP at this point of time without BiPAP patient desaturates very quickly.
[2018-06-04 17:18] LABS: Glucose,Whole Blood 191 mg/dL (75-99)
[2018-06-04 20:32] LABS: Glucose,Whole Blood 233 mg/dL (75-99)
[2018-06-05 04:48] LABS: Anisocytosis Moderate; Basophils % (A) 0 %; Eosinophils % (A) 0 %; HCT 26.8 % (34.0-46.0); HGB 8.4 gm/dL (11.4-16.0); Hypochromasia Slight; Lymphocytes # (A) 0.1 k/uL (1.0-4.8); Lymphocytes % (A) 1 %; MCH 30.1 pg (25.0-35.0); MCHC 31.4 g/dL (31.0-37.0); MCV 95.9 fL (80.0-100.0); Macrocytosis Moderate; Mean Platelet Volume 8.3; Monocytes # (A) 0.4 k/uL (0-1.0); Monocytes % (A) 3 %; Neutrophils # (A) 12.8 k/uL (1.3-7.7); Neutrophils % (A) 96 %; RDW 20.9 % (11.5-15.5); WBC 13.4 k/uL (3.8-10.6)
[2018-06-05 04:49] LABS: Platelet Count 51 k/uL (150-450)
[2018-06-05 04:58] LABS: Anion Gap 2 mmol/L; Blood Urea Nitrogen 49 mg/dL (7-17); Calcium 8.2 mg/dL (8.4-10.2); Chloride 96 mmol/L (98-107); Glucose 176 mg/dL (74-99); Potassium 3.7 mmol/L (3.5-5.1); Sodium 138 mmol/L (137-145)
[2018-06-05 05:18] LABS: Carbon Dioxide 40 mmol/L (22-30)
[2018-06-05] MEDS: POTASSIUM CHLORIDE 10 MEQ in WATER FOR INJECTION 1 100ML.BAG IVPB SCH ×2 (06:27→10:51)
[2018-06-05 07:25] LABS: Glucose,Whole Blood 176 mg/dL (75-99)
[2018-06-05] MEDS: IPRATROPIUM-ALBUTEROL 3 ML NEB INHALATION SCH ×4 (08:41→19:46)
[2018-06-05] MEDS: INSULIN ASPART 100 UNIT/ML 1 ML 10 ML VIAL SQ SCH ×4 (08:45→20:59)
[2018-06-05] MEDS: methylPREDNISolone SOD SUCCI 40 MG/ML 1 ML VIAL IV SCH ×3 (08:47→23:14)
[2018-06-05] MEDS: FUROSEMIDE 10 MG/ML 4 ML VIAL IV SCH ×3 (08:47→23:14)
[2018-06-05] MEDS: DILTIAZEM ORAL 30 MG TAB PO SCH ×3 (08:47→20:59)
[2018-06-05] MEDS: PANTOPRAZOLE 40 MG TABLET PO SCH (08:47)
[2018-06-05] MEDS: AMIODARONE 200 MG TAB PO SCH ×2 (08:47→20:59)
[2018-06-05] MEDS: LEVOTHYROXINE 50 MCG TAB PO SCH (08:48)
[2018-06-05] MEDS: CEFEPIME 2 GM in SODIUM CHLORIDE 0.9% 50 ML IVPB SCH ×2 (08:58→20:59)
--- NOTE | 2018-06-05 09:11 | P.PN ---
Subjective Progress Note Date: 06/05/18 Acute hypoxic respiratory failure with bilateral lower lobe pneumonia secondary to MRSA. On today's evaluation of 05/30/2018, the patient is feeling better and the patient is awake and alert and following commands and answering questions appropriately. She has bilateral MRSA pneumonia for which she is on IV vancomycin. She is afebrile hemodynamically stable. She is on high flow oxygen at 45 liters and the patient's pulse ox is around 99%. Chest x-ray still showing right lower lobe pulmonary consolidation and elevation of the right hemidiaphragm. The patient is also being diuresis with IV Lasix 40 mg every 8 hours pH has been a negative fluid balance. The patient has been also receiving Diamox for underlying metabolic alkalosis. Her most recent serum bicarb is up to 39 and the creatinine is at 0.7. The white cell count is down to 19.6. She is tolerating her diet. She is a bit weak and she is working with physical therapy. She is utilizing BiPAP overnight at a pressure of 16/8 cm of water. Otherwise, she is developed a slow progress over the past few days. On today's evaluation of 05/31/2018, the patient is still in hypoxic respiratory failure and the patient is developed diffuse bilateral pulmonary infiltrates and this was noted on a chest x-ray that was done following the insertion of the PICC line catheter. The patient remains on IV vancomycin regarding MRSA pneumonia. The patient is hemodynamically stable. The patient is on high flow oxygen at 55%, and her pulse ox in the order of 97%. She is a bit more short of breath compared to yesterday. I stopped her Diamox yesterday and I cut down the Lasix to once a day. She remains in a negative fluid balance. She is a bit alkalotic with a serum bicarb of 44 on today's blood work. White cell count is also up to 23.7. The patient is being treated with IV vancomycin. Her cardiac rhythm is atrial fibrillation. The patient is on amiodarone 200 mg by mouth twice a day. The patient is on oral Cardizem 30 mg by mouth 3 times a day. The patient is also on bronchodilators and systemic steroids. On 06/01/2018 I'm seeing this patient for a follow-up. The patient is not doing the best. She is a bit lethargic. She slept all night yesterday. This morning she is feeling weak and she is on fish short of breath on high flow oxygen at 15 right percent FiO2. Pulse ox around 94% on high flow oxygen. The CAT scan of the chest was done yesterday showed evidence of pulmonary edema. There was patchy infiltrates bilaterally likely on the basis of pulmonary edema. There is also small bilateral pleural effusion. The bibasilar compressive atelectatic changes were essentially improving. Based on these findings, increased the patient's Lasix up to 40 g twice a day on that he started the Diamox. The patient is diuresing. The patient is a negative fluid balance. A repeat chest x-ray from today shows improvement in the pulmonary edema. Nevertheless residual edema in the upper lobes and persistent consolidation of the right lower lobe along with small bilateral pleural effusion. The echocardiogram that was done at time of admission showed an ejection fraction of 50-55% and the left atrium was severely dilated. The patient has severe aortic stenosis present. The patient also has moderate degree of mitral regurgitation and severe mitral stenosis. There is also moderate to severe pulmonary hypertension present. As such there is obvious valvular heart disease which could be contributing to the patient's pulmonary edema and hypoxic respiratory failure. The patient is still on vancomycin regarding MRSA pneumonia. Vancomycin levels are being monitored on a regular basis. Renal function is still stable. The serum bicarb is 42. The patient is seen today 06/02/2018 in follow-up in the intensive care unit. She is currently awake and alert. She had an echocardiogram performed this morning. She is somewhat dyspneic currently on the AirVo currently at oxygen flow rate of 35 and 55% FiO2. O2 saturations were in the upper 80s. She is alternating back and forth between the BiPAP 16/8 and 45% FiO2 which keeps her O2 saturations in the 90s. Chest x-ray continues to show small to moderate right and small left pleural effusions with adjacent atelectasis. Persistent but improving interstitial pulmonary edema. She currently denies any significant discomfort. No chest pain or palpitations. Hemodynamically stable. Currently afebrile. White count 17.6. Hemoglobin 9.0. Creatinine 0.70. Bicarb 42. She remains on Lasix 40 mg IV push every 8 hours. She is continued on vancomycin. The patient is seen again today 06/03/2018 in follow-up in the intensive care unit. She remains BiPAP dependent at this point. Current settings 16/8 with an FiO2 of 45% to maintain O2 saturations in the 90s. Today's chest x-ray is basically unchanged showing mild pulmonary vascular congestion and trace pleural effusions. There is persistent right hemidiaphragm elevation. Repeat echocardiogram continues to reveal preserved left ventricular systolic function with ejection fraction 60-65%. There is moderate aortic stenosis and moderate to severe mitral stenosis along with moderate to severe pulmonary hypertension with an RVSP of 60 mmHg. She remains on Lasix 40 mg IV push every 8 hours. Currently in a negative balance. She is down 2 more kg. White count 16.1. Hemoglobin 8.9. Creatinine 0.76. She remains on vancomycin. On 06/04/2018, I'm seeing this patient for a follow-up. Unfortunately much much of progress over the past few days. Still on high flow oxygen. She is alternating with a BiPAP at a pressure of 16/8 cm of water. She is getting progressively more lethargic. Echocardiogram was repeated and there is no interval change. She has severe MS and aortic stenosis and preserved LV function. Remains on Lasix 3 times a day 40 mg IV push and Diamox. The blood work from today shows a white cell count of 14.0. Bicarb level of 41. BUN of 53. Creatinine of 0.7. Urine output is adequate and the patient is a negative fluid balance. Chest x-ray shows continuing opacity of the right lung. Improved vasculature and vascular congestion. Small bilateral pleural effusions. She remains on vancomycin. Had a lengthy discussion with the family. Her respiratory failure is thought to be related to staphylococcal pneumonia and valvular heart disease. On 06/05/2018, the patient is still in acute hypoxic respiratory failure, BiPAP dependent and high flow oxygen dependent. Overnight she stepped on the BiPAP at a pressure of 16/8 cm of water and FiO2 of 60%. This morning she is on high flow oxygen at 65% FiO2. Still on Lasix. Good urine output. Diamox for metabolic alkalosis. CAT scan of the chest was repeated and there was some improvement in the groundglass pulmonary infiltrates bilaterally although still extensive. She is on examination of cefepime vancomycin. She is on IV Solu- Medrol. She is on IV Lasix. She is weak. Oral intake is diminished probably 30-40% of her meals are being taken. No fever. No chills. She is lethargic yet arousable conscious awake and alert and communicating. Renal function is the same. I will say we are still at a standstill and there is no much improvement in her condition in general. Objective - Vital Signs Vital signs: Vital Signs Temp 98.6 F 06/05/18 04:00 Pulse 92 06/05/18 08:53 Resp 28 H 06/05/18 04:00 BP 109/44 06/05/18 04:00 Pulse Ox 99 06/05/18 04:00 Intake & Output 06/04/18 06/05/18 06/05/18 18:59 06:59 18:59 Intake Total 290 110 Output Total 780 700 Balance -490 -590 Weight 104.8 kg Intake: IV 40 110 Sodium Chloride 0.9% 1, 40 110 000 ml @ 10 mls/hr IV . Q24H [facility] Rx#:[id number] Oral 250 Output: Urine 780 700 Other: Voiding Method Indwelling Catheter Indwelling Catheter ABP, PAP, CO, CI - Last Documented Arterial Blood Pressure - Exam No acute distress, Nasal O2 in place and the patient on high flow oxygen at 65 L /m. Patient is resting comfortably in bed and the patient shows no signs of an acute respiratory distress at this point in time. She is able to speak full Sentences. HEENT examination is grossly unremarkable. Mucous membranes are moist. Neck supple. Full range of motion. No adenopathy thyromegaly or neck vein distention. Cardiovascular examination reveals regular rhythm rate. S1-S2 normal. No S3 or S4. A loud systolic murmur of aortic stenosis is noted.. No murmurs throughout the precordium more so in the apex radiating to the neck. Lungs are diminished specially in the right lung base. Few crackles in the lung bases. No significant wheezes can be appreciated. Breath sounds overall are diminished bilaterally more so on the right lung base. Abdomen soft. Bowel sounds are not noted. No masses or tenderness. Abdominal exam revealed normal bowel sounds. The abdomen was soft, non-tender, and without masses, organomegaly, or appreciable enlargement of the abdominal aorta. Extremities are intact. No cyanosis clubbing or edema. Examination of the skin revealed no evidence of significant rashes, suspicious appearing nevi or other concerning lesions. Neurologic examination is brief but nonfocal. - Labs CBC & Chem 7: 06/05/18 04:40 06/05/18 04:40 Labs: Abnormal Lab Results - Last 24 Hours (Table) 06/04/18 06/04/18 06/04/18 Range/Units 11:36 17:17 20:29 WBC (3.8-10.6) k/uL RBC (3.80-5.40) m/uL Hgb (11.4-16.0) gm/dL Hct (34.0-46.0) % RDW (11.5-15.5) % Plt Count (150-450) k/uL Neutrophils # (1.3-7.7) k/uL Lymphocytes # (1.0-4.8) k/uL Chloride (98-107) mmol/L Carbon Dioxide (22-30) mmol/L BUN (7-17) mg/dL Glucose (74-99) mg/dL POC Glucose (mg/dL) 200 H 191 H 233 H (75-99) mg/dL Calcium (8.4-10.2) mg/dL 06/05/18 06/05/18 06/05/18 Range/Units 04:40 04:40 07:23 WBC 13.4 H (3.8-10.6) k/uL RBC 2.80 L (3.80-5.40) m/uL Hgb 8.4 L (11.4-16.0) gm/dL Hct 26.8 L (34.0-46.0) % RDW 20.9 H (11.5-15.5) % Plt Count 51 L (150-450) k/uL Neutrophils # 12.8 H (1.3-7.7) k/uL Lymphocytes # 0.1 L (1.0-4.8) k/uL Chloride 96 L (98-107) mmol/L Carbon Dioxide 40 H* (22-30) mmol/L BUN 49 H (7-17) mg/dL Glucose 176 H (74-99) mg/dL POC Glucose (mg/dL) 176 H (75-99) mg/dL Calcium 8.2 L (8.4-10.2) mg/dL Assessment and Plan Plan: 1 acute hypoxic respiratory failure with bilateral lower lobe pneumonia secondary to MRSA and the patient is currently on IV vancomycin. In addition, there is a component of pulmonary edema secondary to CHF/valvular heart disease. We have reached a plateau in terms of recovery and were not seeing any further improvement in her condition as mentioned earlier. I broaden antibiotic coverage. I think the pulmonary infiltrates are essentially interstitial edema related to valvular heart disease/CHF. I think the MRSA pneumonia itself has recovered. The patient has small bilateral pleural effusion and thoracentesis would not be of any significant benefit to this patient. 2 bilateral lower lobe pneumonia. This is a MRSA pneumonia which is being treated with vancomycin. 3 acute cardiac pulmonary arrest with brief loss impulses at a time of admission , recovered 4 lactic acidosis secondary to above, recovered 5 leukocytosis secondary to above, and the white cell count is down to 13 6 morbid obesity with a BMI of 43.4 7 obstructive sleep apnea 8 severe persistent bronchial asthma 9 history of right hemidiaphragmatic plication for unilateral paralysis 10 moderate to severe severe aortic stenosis and mitral stenosis, with a preserved LV function as evident on the echocardiogram 11 history of TIA 12 nephrolithiasis 13 gouty arthritis 14 hypothyroidism 13 hypertension 16 hyperlipidemia 17 history of atrial fibrillation 18 acid reflux 19 gout 20 degenerative arthritis 21 episodes of SVT, and currently the patient is atrial fibrillation with a controlled rate and she is currently on amiodarone 200 mg by mouth twice a day and Eliquis 5 mg by mouth twice a day for long-term anticoagulation. Her echocardiogram shows a preserved LV function. 22 thrombocytopenia, currently off Eliquis Plan Condition is the same. Continue same treatment. Continue BiPAP alternating with high flow oxygen. Continue diuresis. Continue antibiotics. Continue steroids. Prognosis poor. She has severe valvular heart disease. Performance and functional status is also poor. Prognosis in general is poor as the patient is not showing any signs of recovery. Case was discussed with the family and they're very much understanding on her condition. Reviewed the follow-up CAT scan. No need for thoracentesis. The amount of pleural fluid is small. Keep in ICU. We'll follow
[2018-06-05] MEDS: SODIUM CHLORIDE 0.9% 1,000 ML IV SCH (11:35)
[2018-06-05 11:59] LABS: Glucose,Whole Blood 212 mg/dL (75-99)
[2018-06-05] MEDS: VANCOMYCIN 1,750 MG in SODIUM CHLORIDE 0.9% 500 ML IVPB SCH (15:55)
--- NOTE | 2018-06-05 17:15 | P.PN ---
Subjective Patient is on 73-year-old female with a known history of obstructive sleep apnea on biPAP, Hypothyroidism, valvular heart disease with aortic stenosis and congestive heart failure and multiple other medical problems including morbid obesity presented to hospital with worsening shortness of breath. Patient was at [facility] studies where she had progressive shortness of breath. Patient's pulse ox was low 70s upon EMS arrival. Patient was placed on 100% nonrebreather but the patient remained hypoxic. Patient was placed on BiPAP. And was transferred to ER. Patient was given breathing treatments while in the ER without much relief. Patient was subsequently intubated due to acute hypoxic respiratory failure. Currently patient is intubated and is in the medical intensive care unit. Chest x-ray showed no evidence of pneumothorax. Bilateral air space disease was present in the perihilar region in the lower lobes bilaterally right more than left. WC count was 22 on admission. Lactic acid 5.9 on admission 05/27/2018 Patient remains in critical condition. Is not improving much. And family considering comfort care 06/03/2018 pt is on BiPAP today , open eyes with some movement of extremities. saturating 99% on BiPAP. pt presents with Hypoxia needed intubation eventually, follow up CXR showed unchanged exam with mild pulmonary congestion , CT of the thorax : pulmonary edema with mild B/L pleural effusion , improving. disintegrator operator preferred no thoracosentasis, Echo: Severe LVH, EF 60-65%, moderate , moderate to sever MS , severe MR. . pt is been treated with high dose steroids, andEliquis, amiodarone and cardizem and lasix 40 mg IV q8hr , pt is currently extubated and improving slowly with guarded prognosis. 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 leukocytosis but pt is on steroids . 06/04/2018 Patient respiratory status remains the same with no change. Repeat CAT scan of the chest with IV contrast was done by pulmonary team showing moderate bilateral pleural effusion with atelectasis, with diffuse patchy ground glass opacities throughout both lungs secondary to pulmonary edema or atypical pneumonia As per staff, no plans for thoracocentesis currently 06/05/2018 Patient respiratory status remains the same with no change. Repeat CAT scan of the chest with IV contrast was done by pulmonary team showing moderate bilateral pleural effusion with atelectasis, with diffuse patchy ground glass opacities throughout both lungs secondary to pulmonary edema or atypical pneumonia As per staff, no plans for thoracocentesis currently add doxycycline for possible atypical MO and to help in MRSA pna Review of systems: CONSTITUTIONAL: No fever, no malaise, no fatigue. HEENT: No recent visual problems or hearing problems. Denied any sore throat. CARDIOVASCULAR: no palpitations, no syncope. PULMONARY: , no hemoptysis. GASTROINTESTINAL: No diarrhea, no nausea, no vomiting, no abdominal pain. Normoactive bowel sounds. NEUROLOGICAL: No headaches, no limb weakness, no numbness. HEMATOLOGICAL: Denies any bleeding or petechiae. GENITOURINARY: Denies any burning micturition, frequency, or urgency. MUSCULOSKELETAL/RHEUMATOLOGICAL: Denies any joint pain, swelling, or any muscle pain. ENDOCRINE: Denies any polyuria or polydipsia. Objective - Vital Signs Vital signs: Vital Signs Temp 97.8 F 06/05/18 16:00 Pulse 76 06/05/18 16:13 Resp 24 06/05/18 16:00 BP 109/44 06/05/18 16:00 Pulse Ox 97 06/05/18 16:00 Intake & Output 06/04/18 06/05/18 06/05/18 18:59 06:59 18:59 Intake Total 290 110 40 Output Total 058 659 0797 Balance -490 590 -1460 Weight 104.8 kg Intake: IV 40 110 40 Sodium Chloride 0.9% 1, 40 110 40 000 ml @ 10 mls/hr IV . Q24H [facility] Rx#:[id number] Oral 250 Output: Urine 771 779 9060 Other: Voiding Method Indwelling Catheter Indwelling Catheter Indwelling Catheter ABP, PAP, CO, CI - Last Documented Arterial Blood Pressure - Exam GENERAL: The patient is alert and oriented x3, not in any acute distress. Obese. HEENT: Pupils are round and equally reacting to light. EOMI. No scleral icterus. No conjunctival pallor. Normocephalic, atraumatic. No pharyngeal erythema. No thyromegaly. CARDIOVASCULAR: S1 and S2 present. No murmurs, rubs, or gallops. PULMONARY: Gross breath sounds is in respiratory distress on BiPAP ABDOMEN: Soft, nontender, nondistended, normoactive bowel sounds. No palpable organomegaly. MUSCULOSKELETAL: No joint swelling or deformity. EXTREMITIES: No cyanosis, clubbing, or pedal edema. NEUROLOGICAL: Gross neurological examination did not reveal any focal deficits. SKIN: No rashes. - Labs CBC & Chem 7: 06/05/18 04:40 06/05/18 04:40 Labs: Abnormal Lab Results - Last 24 Hours (Table) 06/04/18 06/04/18 06/05/18 Range/Units 17:17 20:29 04:40 WBC 13.4 H (3.8-10.6) k/uL RBC 2.80 L (3.80-5.40) m/uL Hgb 8.4 L (11.4-16.0) gm/dL Hct 26.8 L (34.0-46.0) % RDW 20.9 H (11.5-15.5) % Plt Count 51 L (150-450) k/uL Neutrophils # 12.8 H (1.3-7.7) k/uL Lymphocytes # 0.1 L (1.0-4.8) k/uL Chloride (98-107) mmol/L Carbon Dioxide (22-30) mmol/L BUN (7-17) mg/dL Glucose (74-99) mg/dL POC Glucose (mg/dL) 191 H 233 H (75-99) mg/dL Calcium (8.4-10.2) mg/dL 06/05/18 06/05/18 06/05/18 Range/Units 04:40 07:23 11:58 WBC (3.8-10.6) k/uL RBC (3.80-5.40) m/uL Hgb (11.4-16.0) gm/dL Hct (34.0-46.0) % RDW (11.5-15.5) % Plt Count (150-450) k/uL Neutrophils # (1.3-7.7) k/uL Lymphocytes # (1.0-4.8) k/uL Chloride 96 L (98-107) mmol/L Carbon Dioxide 40 H* (22-30) mmol/L BUN 49 H (7-17) mg/dL Glucose 176 H (74-99) mg/dL POC Glucose (mg/dL) 176 H 212 H (75-99) mg/dL Calcium 8.2 L (8.4-10.2) mg/dL Assessment and Plan Plan: Assessment and Plan Plan: Acute hypoxic respiratory failure. Multifactorial secondary to bilateral lower lobe pneumonia ,CHF. extubated to BiPAP (Bilateral lower lobe pneumonia. Right greater than left), patient is on IV vancomycin patient the bronchial cultures are positive for staph aureus patient appears to have staph early pneumonia pulmonary edema, on iv lasix 40 mg Q8H Acute cardio pulmonary arrest with brief loss of pulse status post CPR and a dose of epinephrine with return of spontaneous circulation. Lactic acidosis 5.9 on admission improving, recovered Sepsis secondary to pneumonia Obstructive sleep apnea on BiPAP at home Morbid obesity with BMI 44.9 with possible underlying obesity hypoventilation Acute on chronic CHF with systolic dysfunction as well as valvular heart disease History of right hemidiaphragmatic plication for unilateral paralysis History of TIA Nephrolithiasis Osteoarthritis Hypothyroidism with low free T4 level and elevated TSH. Uncontrolled History of atrial fibrillation. Paroxysmal. Currently in sinus rhythm on Rythmol GERD Gout status post bronchoscopy with lavage of right lower lobe No Code, no CPR as per family's wishes. Her overall prognosis and poor considering her obesity hypoventilation syndrome morbid obesity sleep apnea and possibility of COPD, acute CHF. Patient does use oxygen at home does use BiPAP at home at nighttime. Patient is on BiPAP at this point of time without BiPAP patient desaturates very quickly. add doxycycline for 5 days
[2018-06-05 17:20] LABS: Glucose,Whole Blood 164 mg/dL (75-99)
[2018-06-05 20:48] LABS: Glucose,Whole Blood 230 mg/dL (75-99)
[2018-06-05] MEDS: ALPRAZolam 0.25 MG TAB PO PRN (23:14)
[2018-06-06] MEDS ORDERED: VANCOMYCIN TROUGH DUE 1 EACH MISC MISCELLANE ONE (05:00)
[2018-06-06 05:21] LABS: Anion Gap 2 mmol/L; Blood Urea Nitrogen 52 mg/dL (7-17); Calcium 8.3 mg/dL (8.4-10.2); Carbon Dioxide 39 mmol/L (22-30); Chloride 96 mmol/L (98-107); Glucose 175 mg/dL (74-99); Potassium 3.8 mmol/L (3.5-5.1); Sodium 137 mmol/L (137-145)
[2018-06-06 05:23] LABS: Anisocytosis Moderate; Basophils % (A) 0 %; Eosinophils % (A) 0 %; HCT 26.1 % (34.0-46.0); HGB 8.4 gm/dL (11.4-16.0); Hypochromasia Slight; Lymphocytes # (A) 0.1 k/uL (1.0-4.8); Lymphocytes % (A) 1 %; MCH 30.7 pg (25.0-35.0); MCHC 32.2 g/dL (31.0-37.0); MCV 95.4 fL (80.0-100.0); Macrocytosis Moderate; Mean Platelet Volume 8.8; Monocytes # (A) 0.4 k/uL (0-1.0); Monocytes % (A) 3 %; Neutrophils # (A) 12.3 k/uL (1.3-7.7); Neutrophils % (A) 95 %; RBC 2.74 m/uL (3.80-5.40); WBC 12.9 k/uL (3.8-10.6)
[2018-06-06 05:24] LABS: Platelet Count 56 k/uL (150-450)
[2018-06-06] MEDS: VANCOMYCIN 1,750 MG in SODIUM CHLORIDE 0.9% 500 ML IVPB SCH (05:57)
[2018-06-06] MEDS: LEVOTHYROXINE 50 MCG TAB PO SCH (05:57)
[2018-06-06] MEDS: POTASSIUM CHLORIDE 10 MEQ in WATER FOR INJECTION 1 100ML.BAG IVPB SCH ×4 (06:06→14:26)
[2018-06-06] MEDS: IPRATROPIUM-ALBUTEROL 3 ML NEB INHALATION SCH ×4 (06:54→19:41)
[2018-06-06 07:32] LABS: Glucose,Whole Blood 200 mg/dL (75-99)
[2018-06-06] MEDS: INSULIN ASPART 100 UNIT/ML 1 ML 10 ML VIAL SQ SCH ×4 (08:48→20:55)
[2018-06-06] MEDS: methylPREDNISolone SOD SUCCI 40 MG/ML 1 ML VIAL IV SCH ×2 (08:48→16:08)
[2018-06-06] MEDS: PANTOPRAZOLE 40 MG TABLET PO SCH (08:49)
[2018-06-06] MEDS: DILTIAZEM ORAL 30 MG TAB PO SCH ×3 (08:49→21:00)
[2018-06-06] MEDS: CEFEPIME 2 GM in SODIUM CHLORIDE 0.9% 50 ML IVPB SCH ×2 (08:49→20:55)
[2018-06-06] MEDS: AMIODARONE 200 MG TAB PO SCH ×2 (08:49→20:55)
--- NOTE | 2018-06-06 08:56 | XR ---
EXAMINATION TYPE: XR chest 1V portable DATE OF EXAM: 06/06/2018 COMPARISON: 06/04/2018 HISTORY: Shortness of breath TECHNIQUE: Single frontal view of the chest is obtained. FINDINGS: Again there is a moderate right and small left pleural effusion with associated right basi lar airspace disease, likely compressive atelectasis. There is worsening of the pulmonary vascular co ngestion and interstitial edema predominating centrally. Cardiomediastinal silhouette is partially ob scured but again appears enlarged. No pneumothorax appreciated. Right-sided PICC is unchanged in the interim. Mild multilevel degenerative changes of the thoracic spine are noted. IMPRESSION: Worsening congestive heart failure with progressive interstitial edema, pulmonary vascul ar congestions and stable appearing moderate right pleural effusion as well as small left pleural eff usion.
[2018-06-06] MEDS: FUROSEMIDE 10 MG/ML 4 ML VIAL IV SCH ×3 (10:13→22:55)
--- NOTE | 2018-06-06 11:08 | P.PN ---
Subjective Patient sitting at this time family at bedside. No improvement noted from last week Objective - Vital Signs Vital signs: Vital Signs Temp 97.6 F 06/06/18 04:00 Pulse 84 06/06/18 07:12 Resp 23 06/06/18 08:00 BP 98/37 06/06/18 04:00 Pulse Ox 99 06/06/18 00:00 Intake & Output 06/05/18 06/06/18 06/06/18 18:59 06:59 18:59 Intake Total 40 210 Output Total 1500 550 350 Balance -1460 -340 -350 Weight 103.3 kg Intake: IV 40 110 Sodium Chloride 0.9% 1, 40 110 000 ml @ 10 mls/hr IV . Q24H [facility] Rx#:[id number] Intake, IV Titration 100 Amount Cefepime 2 gm In Sodium 100 Chloride 0.9% 50 ml @ 100 mls/hr IVPB Q12HR [facility] Rx #:[id number] Output: Urine 1500 550 350 Other: Voiding Method Indwelling Catheter Indwelling Catheter Indwelling Catheter ABP, PAP, CO, CI - Last Documented Arterial Blood Pressure - Constitutional General appearance: Present: morbidly obese - EENT Ears: bilateral: normal - Respiratory Respiratory: bilateral: diminished - Cardiovascular Rhythm: irregularly irregular Abnormal Heart Sounds: Present: systolic murmur - Gastrointestinal General gastrointestinal: Present: soft - Integumentary Integumentary: Present: normal - Musculoskeletal Musculoskeletal: Present: generalized weakness - Labs CBC & Chem 7: 06/06/18 05:00 06/06/18 05:00 Labs: Abnormal Lab Results - Last 24 Hours (Table) 06/05/18 06/05/18 06/05/18 Range/Units 11:58 17:18 20:46 WBC (3.8-10.6) k/uL RBC (3.80-5.40) m/uL Hgb (11.4-16.0) gm/dL Hct (34.0-46.0) % RDW (11.5-15.5) % Plt Count (150-450) k/uL Neutrophils # (1.3-7.7) k/uL Lymphocytes # (1.0-4.8) k/uL Chloride (98-107) mmol/L Carbon Dioxide (22-30) mmol/L BUN (7-17) mg/dL Glucose (74-99) mg/dL POC Glucose (mg/dL) 212 H 164 H 230 H (75-99) mg/dL Calcium (8.4-10.2) mg/dL 06/06/18 06/06/18 06/06/18 Range/Units 05:00 05:00 07:31 WBC 12.9 H (3.8-10.6) k/uL RBC 2.74 L (3.80-5.40) m/uL Hgb 8.4 L (11.4-16.0) gm/dL Hct 26.1 L (34.0-46.0) % RDW 21.0 H (11.5-15.5) % Plt Count 56 L (150-450) k/uL Neutrophils # 12.3 H (1.3-7.7) k/uL Lymphocytes # 0.1 L (1.0-4.8) k/uL Chloride 96 L (98-107) mmol/L Carbon Dioxide 39 H (22-30) mmol/L BUN 52 H (7-17) mg/dL Glucose 175 H (74-99) mg/dL POC Glucose (mg/dL) 200 H (75-99) mg/dL Calcium 8.3 L (8.4-10.2) mg/dL - Imaging and Cardiology Chest x-ray: report reviewed Assessment and Plan Plan: Assessment Acute hypoxic respiratory failure secondary to pneumonia valvular heart disease Acute cardiopulmonary arrest extubated at this time Bilateral lower pneumonia with sepsis sleep apnea on BiPAP at home Morbid obesity BMI 44.9 Chronic congestive heart failure diastolic ejection fraction 60-65% Pulmonary hypertension pulmonary edema History of TIA Osteoarthritis Hypothyroidism Paroxysmal atrial fibrillation GERD Hypotension history of gout Post bronchoscopy showing MRSA Pleural effusions Post PICC line Plan No code no CPR per patient and family wishes Continue consultation with pulmonology cardiology
[2018-06-06] MEDS: SODIUM CHLORIDE 0.9% 1,000 ML IV SCH (11:15)
[2018-06-06] MEDS ORDERED: Potassium Replacement Protocol 1 EACH MISC MISCELLANE PRN (12:26)
--- NOTE | 2018-06-06 12:26 | P.PN ---
Subjective Progress Note Date: 06/06/18 Principal diagnosis: Acute hypoxic respiratory failure secondary to bilateral lower lobe pneumonia and congestive heart failure. On today's evaluation of 05/30/2018, the patient is feeling better and the patient is awake and alert and following commands and answering questions appropriately. She has bilateral MRSA pneumonia for which she is on IV vancomycin. She is afebrile hemodynamically stable. She is on high flow oxygen at 45 liters and the patient's pulse ox is around 99%. Chest x-ray still showing right lower lobe pulmonary consolidation and elevation of the right hemidiaphragm. The patient is also being diuresis with IV Lasix 40 mg every 8 hours pH has been a negative fluid balance. The patient has been also receiving Diamox for underlying metabolic alkalosis. Her most recent serum bicarb is up to 39 and the creatinine is at 0.7. The white cell count is down to 19.6. She is tolerating her diet. She is a bit weak and she is working with physical therapy. She is utilizing BiPAP overnight at a pressure of 16/8 cm of water. Otherwise, she is developed a slow progress over the past few days. On today's evaluation of 05/31/2018, the patient is still in hypoxic respiratory failure and the patient is developed diffuse bilateral pulmonary infiltrates and this was noted on a chest x-ray that was done following the insertion of the PICC line catheter. The patient remains on IV vancomycin regarding MRSA pneumonia. The patient is hemodynamically stable. The patient is on high flow oxygen at 55%, and her pulse ox in the order of 97%. She is a bit more short of breath compared to yesterday. I stopped her Diamox yesterday and I cut down the Lasix to once a day. She remains in a negative fluid balance. She is a bit alkalotic with a serum bicarb of 44 on today's blood work. White cell count is also up to 23.7. The patient is being treated with IV vancomycin. Her cardiac rhythm is atrial fibrillation. The patient is on amiodarone 200 mg by mouth twice a day. The patient is on oral Cardizem 30 mg by mouth 3 times a day. The patient is also on bronchodilators and systemic steroids. On 06/01/2018 I'm seeing this patient for a follow-up. The patient is not doing the best. She is a bit lethargic. She slept all night yesterday. This morning she is feeling weak and she is on fish short of breath on high flow oxygen at 15 right percent FiO2. Pulse ox around 94% on high flow oxygen. The CAT scan of the chest was done yesterday showed evidence of pulmonary edema. There was patchy infiltrates bilaterally likely on the basis of pulmonary edema. There is also small bilateral pleural effusion. The bibasilar compressive atelectatic changes were essentially improving. Based on these findings, increased the patient's Lasix up to 40 g twice a day on that he started the Diamox. The patient is diuresing. The patient is a negative fluid balance. A repeat chest x-ray from today shows improvement in the pulmonary edema. Nevertheless residual edema in the upper lobes and persistent consolidation of the right lower lobe along with small bilateral pleural effusion. The echocardiogram that was done at time of admission showed an ejection fraction of 50-55% and the left atrium was severely dilated. The patient has severe aortic stenosis present. The patient also has moderate degree of mitral regurgitation and severe mitral stenosis. There is also moderate to severe pulmonary hypertension present. As such there is obvious valvular heart disease which could be contributing to the patient's pulmonary edema and hypoxic respiratory failure. The patient is still on vancomycin regarding MRSA pneumonia. Vancomycin levels are being monitored on a regular basis. Renal function is still stable. The serum bicarb is 42. The patient is seen today 06/02/2018 in follow-up in the intensive care unit. She is currently awake and alert. She had an echocardiogram performed this morning. She is somewhat dyspneic currently on the AirVo currently at oxygen flow rate of 35 and 55% FiO2. O2 saturations were in the upper 80s. She is alternating back and forth between the BiPAP 16/8 and 45% FiO2 which keeps her O2 saturations in the 90s. Chest x-ray continues to show small to moderate right and small left pleural effusions with adjacent atelectasis. Persistent but improving interstitial pulmonary edema. She currently denies any significant discomfort. No chest pain or palpitations. Hemodynamically stable. Currently afebrile. White count 17.6. Hemoglobin 9.0. Creatinine 0.70. Bicarb 42. She remains on Lasix 40 mg IV push every 8 hours. She is continued on vancomycin. The patient is seen again today 06/03/2018 in follow-up in the intensive care unit. She remains BiPAP dependent at this point. Current settings 16/8 with an FiO2 of 45% to maintain O2 saturations in the 90s. Today's chest x-ray is basically unchanged showing mild pulmonary vascular congestion and trace pleural effusions. There is persistent right hemidiaphragm elevation. Repeat echocardiogram continues to reveal preserved left ventricular systolic function with ejection fraction 60-65%. There is moderate aortic stenosis and moderate to severe mitral stenosis along with moderate to severe pulmonary hypertension with an RVSP of 60 mmHg. She remains on Lasix 40 mg IV push every 8 hours. Currently in a negative balance. She is down 2 more kg. White count 16.1. Hemoglobin 8.9. Creatinine 0.76. She remains on vancomycin. On 06/04/2018, I'm seeing this patient for a follow-up. Unfortunately much much of progress over the past few days. Still on high flow oxygen. She is alternating with a BiPAP at a pressure of 16/8 cm of water. She is getting progressively more lethargic. Echocardiogram was repeated and there is no interval change. She has severe MS and aortic stenosis and preserved LV function. Remains on Lasix 3 times a day 40 mg IV push and Diamox. The blood work from today shows a white cell count of 14.0. Bicarb level of 41. BUN of 53. Creatinine of 0.7. Urine output is adequate and the patient is a negative fluid balance. Chest x-ray shows continuing opacity of the right lung. Improved vasculature and vascular congestion. Small bilateral pleural effusions. She remains on vancomycin. Had a lengthy discussion with the family. Her respiratory failure is thought to be related to staphylococcal pneumonia and valvular heart disease. On 06/05/2018, the patient is still in acute hypoxic respiratory failure, BiPAP dependent and high flow oxygen dependent. Overnight she stepped on the BiPAP at a pressure of 16/8 cm of water and FiO2 of 60%. This morning she is on high flow oxygen at 65% FiO2. Still on Lasix. Good urine output. Diamox for metabolic alkalosis. CAT scan of the chest was repeated and there was some improvement in the groundglass pulmonary infiltrates bilaterally although still extensive. She is on examination of cefepime vancomycin. She is on IV Solu- Medrol. She is on IV Lasix. She is weak. Oral intake is diminished probably 30-40% of her meals are being taken. No fever. No chills. She is lethargic yet arousable conscious awake and alert and communicating. Renal function is the same. I will say we are still at a standstill and there is no much improvement in her condition in general. On 06/06/2018, patient is basically about the same. Seems to be BiPAP dependent, could not tolerate high flow nasal cannula at all. She only lasted less than half an hour on high flow air vo2. Remains on BiPAP pressures of 16/8 and FiO2 of 60%. Chest x-ray is basically about the same. Patient remains on diuretics in the form of Lasix and Diamox. Continues to have interstitial edema and possibly underlying pulmonary infiltrates. Remains on antibiotics in the form of cefepime and vancomycin. She is also on IV Solu-Medrol. Patient has poor oral intake, and she seems to be generally weak and tired. She is alert oriented, and communicating well. Her labs were reviewed CBC is relatively normal hemoglobin is 8.4 WBC is 12.9 basic metabolic profile noted a bicarb of 39 BUN of 52 creatinine 0.60. Objective - Vital Signs Vital signs: Vital Signs Temp 97.6 F 06/06/18 12:00 Pulse 83 06/06/18 12:00 Resp 26 H 06/06/18 12:00 BP 116/48 06/06/18 12:00 Pulse Ox 98 06/06/18 12:00 Intake & Output 06/05/18 06/06/18 06/06/18 18:59 06:59 18:59 Intake Total 40 210 20 Output Total 1500 550 515 Balance -1460 -340 -495 Weight 103.3 kg Intake: IV 40 110 20 Sodium Chloride 0.9% 1, 40 110 20 000 ml @ 10 mls/hr IV . Q24H NIRANJAN Rx#:[id number] Intake, IV Titration 100 Amount Cefepime 2 gm In Sodium 100 Chloride 0.9% 50 ml @ 100 mls/hr IVPB Q12HR NIRANJAN Rx #:[id number] Output: Urine 1500 550 515 Other: Voiding Method Indwelling Catheter Indwelling Catheter Indwelling Catheter ABP, PAP, CO, CI - Last Documented Arterial Blood Pressure 24/24 - Exam Physical Exam: Revealed a 77-year-old female, obese, on BiPAP Head: Atraumatic, normocephalic. HEENT:[Neck is supple.] [No neck masses.] [No thyromegaly.] [No JVD.] PERRLA, EOMI, moist mucous membranes, no icterus was noted. Left sided subclavian triple-lumen catheter is noted to be in place. Chest: [Symmetrical expansion, diminished breath sounds at the bases especially at the left base, with crackles. No rhonchi, no wheezes.] Cardiac Exam: [Irregular irregular rhythm Normal S1 and S2, no S3 gallop, 3/6 systolic murmur heard best over the anterior chest wall Abdomen: Obese, [Soft, nontender, no megaly, no rebound, no guarding, normal bowel sounds.] Extremities: [No clubbing, no edema, no cyanosis.] Neurological Exam: [No focal neurologic deficit.] Alert oriented 3, Psychiatric: Normal mood affect and mental status examination. Lymphatics: No lymphadenopathy. Skin: No rashes. Musculoskeletal: No limitations in range of motion. - Labs CBC & Chem 7: 06/06/18 05:00 06/06/18 05:00 Labs: Abnormal Lab Results - Last 24 Hours (Table) 06/05/18 06/05/18 06/06/18 Range/Units 17:18 20:46 05:00 WBC 12.9 H (3.8-10.6) k/uL RBC 2.74 L (3.80-5.40) m/uL Hgb 8.4 L (11.4-16.0) gm/dL Hct 26.1 L (34.0-46.0) % RDW 21.0 H (11.5-15.5) % Plt Count 56 L (150-450) k/uL Neutrophils # 12.3 H (1.3-7.7) k/uL Lymphocytes # 0.1 L (1.0-4.8) k/uL Chloride (98-107) mmol/L Carbon Dioxide (22-30) mmol/L BUN (7-17) mg/dL Glucose (74-99) mg/dL POC Glucose (mg/dL) 164 H 230 H (75-99) mg/dL Calcium (8.4-10.2) mg/dL 06/06/18 06/06/18 Range/Units 05:00 07:31 WBC (3.8-10.6) k/uL RBC (3.80-5.40) m/uL Hgb (11.4-16.0) gm/dL Hct (34.0-46.0) % RDW (11.5-15.5) % Plt Count (150-450) k/uL Neutrophils # (1.3-7.7) k/uL Lymphocytes # (1.0-4.8) k/uL Chloride 96 L (98-107) mmol/L Carbon Dioxide 39 H (22-30) mmol/L BUN 52 H (7-17) mg/dL Glucose 175 H (74-99) mg/dL POC Glucose (mg/dL) 200 H (75-99) mg/dL Calcium 8.3 L (8.4-10.2) mg/dL Assessment and Plan Assessment: 1 acute hypoxic respiratory failure with bilateral lower lobe pneumonia secondary to MRSA and the patient is currently on IV vancomycin. In addition, there is a component of pulmonary edema secondary to CHF/valvular heart disease. We have reached a plateau in terms of recovery and were not seeing any further improvement in her condition as mentioned earlier. the pulmonary infiltrates are essentially interstitial edema related to valvular heart disease /CHF. I think the MRSA pneumonia itself has recovered. The patient has small bilateral pleural effusion and thoracentesis would not be of any significant benefit to this patient. 2 bilateral lower lobe pneumonia. This is a MRSA pneumonia which is being treated with vancomycin. 3 acute cardiac pulmonary arrest with brief loss impulses at a time of admission , recovered 4 lactic acidosis secondary to above, recovered 5 leukocytosis secondary to above, and the white cell count is down to 13 6 morbid obesity with a BMI of 43.4 7 obstructive sleep apnea 8 severe persistent bronchial asthma 9 history of right hemidiaphragmatic plication for unilateral paralysis 10 moderate to severe severe aortic stenosis and mitral stenosis, with a preserved LV function as evident on the echocardiogram 11 history of TIA 12 nephrolithiasis 13 gouty arthritis 14 hypothyroidism 13 hypertension 16 hyperlipidemia 17 history of atrial fibrillation 18 acid reflux 19 gout 20 degenerative arthritis 21 episodes of SVT, and currently the patient is atrial fibrillation with a controlled rate and she is currently on amiodarone 200 mg by mouth twice a day and Eliquis 5 mg by mouth twice a day for long-term anticoagulation. Her echocardiogram shows a preserved LV function. 22 thrombocytopenia, currently off Eliquis Recommendation: Continue present supportive care measures, it looks we may be getting to a point where we will have to arrange for family meeting, and possibly consider the issue of comfort care measures. Prognosis to me at this point is extremely poor and unlikely that the patient will recovered from this episode. We'll continue to monitor in the ICU for now.
[2018-06-06 14:24] LABS: Glucose,Whole Blood 185 mg/dL (75-99)
[2018-06-06 17:26] LABS: Glucose,Whole Blood 244 mg/dL (75-99)
[2018-06-06 20:37] LABS: Glucose,Whole Blood 202 mg/dL (75-99)
[2018-06-06] MEDS: VANCOMYCIN 1,500 MG in SODIUM CHLORIDE 0.9% 250 ML IVPB SCH (21:00)
[2018-06-06] MEDS: HYDROmorphone 2 MG TAB PO PRN (21:57)
[2018-06-06] MEDS: ARTIFICIAL TEARS-HYPROMELLOSE DROPS 15 ML BTL BOTH EYES PRN (22:33)
[2018-06-06] MEDS ORDERED: SODIUM CHLORIDE 0.9% 500 ML IV ONE (22:55)
[2018-06-07] MEDS: methylPREDNISolone SOD SUCCI 40 MG/ML 1 ML VIAL IV SCH ×2 (01:14→08:26)
[2018-06-07] MEDS ORDERED: NOREPINEPHRINE 16 MG in DEXTROSE 5% IN WATER 250 ML IV SCH ×2 (02:30)
[2018-06-07 04:48] LABS: Anisocytosis Moderate; HCT 27.3 % (34.0-46.0); HGB 8.8 gm/dL (11.4-16.0); Hypochromasia Slight; MCH 30.8 pg (25.0-35.0); MCHC 32.1 g/dL (31.0-37.0); Macrocytosis Moderate; Mean Platelet Volume 8.5; RBC 2.85 m/uL (3.80-5.40); RDW 21.2 % (11.5-15.5); WBC 14.4 k/uL (3.8-10.6)
[2018-06-07 04:50] LABS: Platelet Count 56 k/uL (150-450)
[2018-06-07 05:03] LABS: Anion Gap 1 mmol/L; Blood Urea Nitrogen 56 mg/dL (7-17); Calcium 8.4 mg/dL (8.4-10.2); Carbon Dioxide 39 mmol/L (22-30); Chloride 97 mmol/L (98-107); Glucose 160 mg/dL (74-99); Magnesium 2.2 mg/dL (1.6-2.3); Phosphorus 3.1 mg/dL (2.5-4.5); Potassium 4.1 mmol/L (3.5-5.1); Sodium 137 mmol/L (137-145)
[2018-06-07 05:13] LABS: Lymphocytes # (M) 0.14 k/uL (1.0-4.8); Monocytes # (M) 0.29 k/uL (0-1.0); Neutrophils # (M) 13.97 k/uL (1.3-7.7); Neutrophils % (M) 97 %; Nucleated Red Blood Cells 0 /100 WBC (0-0); Total Cells Counted 100
[2018-06-07 05:14] LABS: Basophilic Stippling Present; Polychromasia Present
[2018-06-07] MEDS: LEVOTHYROXINE 50 MCG TAB PO SCH (06:45)
[2018-06-07] MEDS: IPRATROPIUM-ALBUTEROL 3 ML NEB INHALATION SCH ×4 (07:02→20:20)
[2018-06-07 07:04] LABS: Glucose,Whole Blood 184 mg/dL (75-99)
[2018-06-07] MEDS: CEFEPIME 2 GM in SODIUM CHLORIDE 0.9% 50 ML IVPB SCH ×2 (08:26→21:31)
[2018-06-07] MEDS: DILTIAZEM ORAL 30 MG TAB PO SCH ×3 (08:27→21:32)
[2018-06-07] MEDS: PANTOPRAZOLE 40 MG TABLET PO SCH (08:27)
[2018-06-07] MEDS: AMIODARONE 200 MG TAB PO SCH ×2 (08:27→21:31)
[2018-06-07] MEDS: INSULIN ASPART 100 UNIT/ML 1 ML 10 ML VIAL SQ SCH ×4 (08:27→21:31)
--- NOTE | 2018-06-07 08:47 | XR ---
EXAMINATION TYPE: XR chest 1V portable DATE OF EXAM: 06/07/2018 Comparison: 06/06/2018 Clinical History: 78-year-old female CHF, Edema, pneumonia Findings: Right PICC tip at the upper right atrium. Right heart margin obscured by adjacent pleural parenchymal disease. Moderate right and small left pleural effusions with prominent adjacent opacity persists. D iffuse interstitial and airspace opacity series shows some improvement. Impression: 1. Improving pulmonary edema. Residual mild pulmonary vascular congestion. 2. However, there are continued moderate right and small left pleural effusions with adjacent atelect asis and/or consolidation.
[2018-06-07] MEDS: FUROSEMIDE 10 MG/ML 4 ML VIAL IV SCH ×3 (10:22→23:18)
[2018-06-07 10:32] VITALS: BMI 39.9
--- NOTE | 2018-06-07 11:45 | P.PN ---
Subjective Progress Note Date: 06/07/18 Principal diagnosis: Acute hypoxemic respiratory failure secondary to bilateral lower lobe pneumonia , and congestive heart failure A 77-year-old morbidly obese female patient with known history of obstructive sleep apnea maintained on BiPAP therapy on outpatient basis and addition to chronic bronchial asthma and significant limitation in exercise capacity secondary to her age body habitus and comorbidities, presented to the hospital because of an acute respiratory failure. I interviewed the daughter. Apparently the patient was at [employer] studies and she was getting progressively more short of breath. After arriving home she did [id number] breathing treatments without much relief. Ultimately she called her daughter who arrived to the scene and she saw that her mother was having more chest congestion, respirator distress, wheezing, and she was headed into respiratory failure. EMS was called to the scene. Upon arrival of EMS, the patient's pulse ox was in the low 70s pH was placed on on the percent nonrebreather facemask as she remained hypoxic and following that the patient was placed on BiPAP. The patient was moved to the emergency department. The patient was seen immediately after she arrived the ED. She was hypoxic, and she was cold and clammy and salmon color and cyanotic. As we were getting ready to intubate the patient, the patient lost pulse briefly and she became bradycardic. She went to the [facility]. She received a dose of epinephrine. She was started on CPR. Within 1 minute she recovered her pulse and the blood pressure. She was intubated and placed on a mechanical ventilator. She currently has a 7.[address] She is an assist-control mode of ventilation at the rate of 26, tidal volume of 400, FiO2 of 100% and a PEEP of 5. Immediately postintubation the blood pressure improved and she had a systolic above 200. She was started on propofol for sedation and her current systolic blood pressure in the 150s. A Poe catheter was inserted. The peak pressures in the 38-40 range. Static pressures around 32. The patient has significant bronchospasm and wheezing. A chest x-ray was done post intubation and post line placement and the chest x- ray showed no evidence of any pneumothorax. Bilateral air space disease was present in the perihilar regions in the lower lobes bilaterally right more than left. ET tube and NG tube were in good location. The patient also had a left subclavian triple-lumen catheter that was inserted without any complications. She was started on IV Zosyn knowing that the patient also briefly aspirated and vomited at the time of the intubation. Labs showed a white cell count of 22. The postintubation blood gas showed a pH of 7.21 with a pCO2 of 63 and pO2 of 88 and this blood gases on 100% FiO2. Initial lactic acid level was at 5.9 On today's evaluation of 05/12/2018 I'm seeing this patient for a follow-up. The patient remains intubated on a mechanical ventilator. Sedated with Diprivan at 30 mics per KG per minute. She is well sedated and she is synchronous with the mechanical ventilator. She is an assist-control mode of ventilation at the rate of 26 with a tidal volume of 400 and FiO2 of 60% with a PEEP of 5. The patient's chest x-ray from today is showing some mild improvement examination of the right midlung field. Otherwise the rest of the signs are all stable. ET tube is in a good location. The patient has consolidation of the right lung involving the right apex and the right lung base. There is also some perihilar pulmonary infiltrates bilaterally addition to some cardiomegaly. There is chronic elevation of the right hemidiaphragm. The blood gases from today showed a pH of 7.33 with a pCO2 of 47 and pO2 of 77 and it wasn't an FiO2 of 60%. The lactic acid level is down to 1.9 from 2.9 in addition. The patient was given briefly a sedation holiday and she was able to follow commands, simple commands and following that the patient was placed back on sedation. She did not require any pressors and the patient is maintaining home blood pressure. She was seen by cardiology today. Echocardiogram was done. The echo showed normal LV function with hypertensive heart disease and evidence of severe mitral stenosis with a mean gradient across the mitral valve of 20 mmHg as well as moderate to severe aortic stenosis with a mean gradient across the valve of 30 mmHg. The patient's cardiac rhythm is still sinus. She remains on broad-spectrum antibiotic coverage with a combination of Zosyn and Levaquin. The sputum cultures still negative for now. Blood cultures have been sent and the results are still negative for now. White cell count is elevated at 22.3. The patient was started on Lasix by cardiology 40 mg IV every 24 hours. She is also normal state rate of 40 mL an hour for now. On today's evaluation of 05/13/2018, the patient remains intubated on a mechanical ventilator. She is lightly sedated and the patient can easily aroused from propofol infusion. She remains on a mechanical ventilator the same vent setting. The blood gas from today, while on the 50% FiO2 showed a pH of 7.39 with a pCO2 of 40 and a pO2 of 81. White cell count is down to 17. The chest x-ray from today is showing persistent bilateral pulmonary infiltrates most on the right upper lobe and the right lower lobe. There is also small bilateral pleural effusion and cardiomegaly. ET tube remains in a good location. Cultures of been all negative thus far. The patient is afebrile and the patient is hemodynamically stable. Also, echocardiogram showed moderate to severe mitral stenosis and aortic valve stenosis and the patient was started on diuresis yesterday. I think we need to diurese this patient more aggressively over the next 24 hours. She'll feeds are running and the patient is tolerating her tube feeds without any major difficulties. Patient is producing adequate amount of urine output. Cardiac rhythm remains sinus. No other significant events over the past 24 hours. On 05/14/2089 seeing this patient for a follow-up. The patient remains intubated on a mechanical ventilator. She is on gentle sedation and she can easily aroused from her sedation and she can follow commands and answer questions appropriately. Her chest x-ray from today is showing some improvement in the aeration of the right lung. The patient has developed a consolidation and effusion the right lung base. The upper lobes are more clear. ET tube is in a good location. She remains on a mechanical ventilator. Assist-control mode of ventilation. She has a rate of 26, tidal volume of 400 , FiO2 is still at 60% with a PEEP of 5. Her blood gases from today showed a pH of 7.39 , pCO2 of 49 and pO2 of 81. I doubt the FiO2 down to 50%. I asked the nursing staff to stop the sedation completely and we checked her weaning parameters and the weaning parameters showed a NIF of -35 and vital Of 935 and the rapid shallow breathing index was less than 100. Based on that, the patient was given a spelled his breathing trial. She lasted for a total of 30 minutes. Following that she became tachycardic and cachectic. Blood gases obtained and the patient had a pH of 7.48 with a pCO2 of 48 and pO2 of 78. Nevertheless, based on ongoing shortness of breath, we decided not to extubate the patient knowing that she was not quite ready for extubation. Noted over the past 24 hours to monitor the patient has significant cardiac events. The patient went into an SVT. She was a rapid ventricular response. She had to be cardioverted. Subsequently she went into atrial fibrillation/flutter rhythm. Her rate is controlled for now. Nevertheless the patient is on Cardizem 30 mg by mouth 3 times a day. She was also placed on IV heparin by cardiology. As mentioned earlier she has valvular heart disease with severe mitral regurgitation stenosis. The diuretics have been cut down to 40 g IV Lasix every 12 hours. The net fluid balance is -2 L for yesterday. No fever. No chills. White cell count is down to 12.6. On 05/15/2018, patient is being seen in follow-up. He remains on a mechanical ventilator. Still on the same vent setting within assist-control mode at the rate of 26 with an FiO2 of 50% with a tidal volume of 400 and a PEEP of 5. The blood gas showed a pH of 7.45 with a pCO2 of 51 and pO2 of 91. No major improvement of the chest x-ray finding and the patient continues to have significant amount of bilateral airspace disease and bilateral pleural effusion more so on the right. The patient is in a controlled rhythm with atrial fibrillation. The patient is diuresing gently with IV Lasix. Unable to do aggressively diurese this patient because of evolving hypotension. The patient has severe mitral stenosis and approximately 2 fibrillation. The patient is also on broad-spectrum antibiotic coverage. She was given a sedation holiday and this point is breathing trial which she was able to tolerate for quite some time and following that she became short of breath and tachycardic and tachypneic and based on that the child was discontinued and the patient was not extubated. She is in a negative fluid balance. The net fluid balance for yesterday was -1.6 L. We are still diuresing this patient and she has a good urine output. She is afebrile. She is tolerating her tube feeds. She is very easily arousable and currently she is sedated with Diprivan. Overall no major changes and conditions compared to yesterday. I'm going to proceed with a CAT scan of the chest to characterized the pulmonary abnormalities. At the same time the patient was started on anticoagulation with warfarin. On 05/16/2018, patient was evaluated, and she remains on mechanical ventilation. Her ventilator settings are assist control rate of 26, tidal volume of 400, FiO2 of 50%, and PEEP of 5. ABG showed a pO2 of 78 pCO2 of 51 pH of 7.48. Patient is awake, responsive to all verbal commands, follows all instructions, hence I took her off propofol, and recommended a spontaneous breathing trial. Placed on pressure support of 10 with CPAP, however she only lasted about 20 minutes and she was noted to have increased respiratory rate, tachycardia, and she was developing a bit of respiratory distress. Hence the patient was switched back to assist control mode of mechanical ventilation. And I felt that she is not ready to be weaned. Ultrasound of the chest was done, there was evidence of less than 5 cm pocket of fluid on the right pleural space, hence I did not feel the patient would benefit much from thoracentesis, not to mention that is associated with thoracentesis considering the amount of fluid is small. All labs were reviewed, her renal profile seems to be relatively normal however her BUN is 53 creatinine is 0.70, more of a prerenal type of azothemia. CBC is relatively normal with minimal leukocytosis. Heparin is therapeutic for her atrial fibrillation. Hemodynamically, the patient is stable , and not requiring any norepinephrine at this point. Propofol is presently on hold. Nutrition is also address, and the patient is being fed with nasogastric tube/enteral feeding. Fluid balance noted over the last 24 hours to be about 90 mL positive. Hence the Lasix dose was increased to twice a day. On 05/17/2018, patient remains on mechanical ventilation, ventilator settings at present are tidal volume of 400, assist control rate of 16 FiO2 of 50% and PEEP of 5. ABG showed a pO2 of 134 pCO2 of 37 pH of 7.62. Patient is not breathing beyond the ventilator settings, hence I cut down her rate from 20-16. And I felt that the patient has significant metabolic alkalosis, but probably this patient's baseline pCO2 is normally in the 50s or 60s to begin with. So the alkalosis were noting is metabolic and respiratory in nature or alkalosis post correction of respiratory acidosis. At any rate we'll continue diuretics, her chest x-ray continues to show bilateral pleural effusion especially on the right side, but the ultrasound did not show enough fluid to safely perform a thoracentesis the pocket was less than 5 cm. Fluid balance is negative about 1258 in the last 24 hours. Urine output remains excellent. Renal functioning is about the same with a BUN of 53 creatinine of 0.70. Patient was placed on amiodarone by cardiology, and she is on heparin for atrial fibrillation. WBC count is 15.8 hemoglobin is 12.5. Patient is on 50 g of propofol, but she is awake, following all instructions, and I suggested that we discontinue propofol , wake of the patient, and given a trial of pressure support of 10 and CPAP. If tolerated we could potentially consider extubating the patient to BiPAP. If not tolerated a sugar go back on assist control mode of mechanical ventilation, higher dose of propofol to sedate her a bit more, and wait for another day to address weaning all over again. Patient was reevaluated today on 05/18/2018, remains on mechanical ventilation, ventilator settings are about the same, unchanged from yesterday. ABG showed a pO2 of 99 pCO2 of 49 pH of 7.51. Potassium is a bit low being corrected as per protocol. BUN remains 52 creatinine 0.66, patient remains on diuretics, repeat ultrasound of the chest continues to show very small tiny right-sided pleural effusion. Not large enough to consider thoracentesis. Chest x-ray is suggestive of central vascular congestion with right basilar consolidation, and small pleural effusion. Patient was taken off propofol, kept on assist control mode of mechanical ventilation, however she was noted to be extremely agitated and restless and tachypneic as well as tachycardic. Hence placed back on propofol, and clearly she is not amenable at this point. Discussed her condition with family at bedside, and we felt at this point patient may be ready for tracheostomy and PEG tube placement. She is going to be extremely difficult to wean. Radius attempts to wean the patient have failed and the patient has been now on mechanical ventilation for 8 days. Remains on the same medications, diuretics, amiodarone, DuoNeb updrafts, remains on antibiotics in the form of Levaquin and Zosyn. Cultures have been nondiagnostic, more sputum cultures were sent today. Nutrition-hassan the patient is receiving enteral feeding. She remains also on GI and DVT prophylaxis. Patient was reevaluated today on 05/19/2018, remains on mechanical ventilation, assist control mode of mechanical ventilation, FiO2 is now to 40%, assist control rate of 16, volume is 400, and PEEP is 5. ABG was noted, patient was given a trial of weaning, and even on assist control mode of mechanical ventilation, patient was breathing basically up in the high 20s and low 30s. As we went to pressure support and CPAP, patient looked extremely tachypnea, she was getting a bit tachycardic, and noted to show some signs of respiratory distress. Hence I updated the family on her condition, and suggested bronchoscopy and evaluation of the right lower lobe. This was done, and the fluid from the right lower lobe was sent for different diagnostic studies. Discussed with the family again plans for tracheostomy and PEG tube placement, apparently they discuss this with her when she was awakened off propofol, and they are all now in agreement that the patient would not have wanted this to begin with. So having said that, I believe were to try to proceed with daily weaning trials, and once we have a window of weaning, we will wean and extubate , and probably not to reintubate. Even if the patient fails and that will be further discussed again on again with the family and with the patient. They seem to be inclined to not consider trach and PEG, but will be willing to proceed with weaning and extubation and not to reintubate at that time we think it is best to extubate. White count is high today 32.3. Her ABG showed a pO2 of 96 pCO2 of 53 pH of 7.53. Basic metabolic profile is relatively normal, bicarb is 39 BUN is 47 creatinine is 0.6. Chest x-ray showed no major change, there is evidence of small pleural effusion, right lower lobe consolidation, and bibasilar airspace disease. Slight cardiac enlargement noted. Right diaphragm is elevated. Patient was reevaluated today on 05/20/2018, remains on mechanical ventilation, basically on the same ventilator settings, have not been changed. ABG showed a pO2 of 81 pCO2 of 56 pH of 7.51. Gram stain from the bronchial culture is showing many gram-positive cocci in clusters, hence I went ahead and added vancomycin to her present course of antibiotics empirically until the final culture is available. Family is all in the room today, and they basically have made a decision to extubate the patient to a noninvasive positive pressure ventilation, and if the patient does well, had to be great, if she doesn't do well, they will likely proceed with comfort care measures. This is all decided upon by all her family members and the patient herself. Hence the patient was taken off sedation, placed on pressure support mode of mechanical ventilation with a pressure support of 16, we have discontinued her propofol, discontinued all her sedation, and once the patient was awake, and responsive following instructions, she was switched to pressure support of 16 and CPAP. She seems to be doing well, in the meantime I have recommended diuretics since her chest x -ray was showing slight worsening she was given a dose of Lasix, and a dose of Diamox. Family is all in agreement to proceed with extubation, and again if not tolerated to proceed with comfort care measures. In the meantime the patient is DO NOT RESUSCITATE CODE STATUS. [place] [id number], hemoglobin is 11, asymmetric metabolic profile was reviewed, bicarb is 43 BUN is 52 creatinine is 0.55. Patient was reevaluated today on 05/21/2018, continues to tolerate the extubation relatively well, she does while on BiPAP, and she doesn't do great on high flow nasal cannula or air vo2. Today we received the final report on the bronchial washing, and sure enough the patient doesn't have MRSA in the bronchial washing, and she has been already on vancomycin since yesterday. We will continue the vancomycin. Chest x-ray is showing some improvement today on the left side, but continues to have a significant amount of consolidation in the right lower lobe area. White cell count is coming down to 19.2 , hemoglobin is 11.0, PTT is 62.7, however the patient is having some bloody sputum, and small amount of hemoptysis, hence I would recommend stopping Coumadin and heparin today for sure. Reevaluated today on 05/22/2018, patient remains off mechanical ventilation, presently on BiPAP, tolerating BiPAP quite well. Patient did not do well with high flow nasal cannula but she is able to use it when she eats. Chest x-ray is showing some worsening hence I recommended more diuretics in the form of Lasix and Diamox. Her WBC count today is up to 28.5, hemoglobin is 11.6. Basic metabolic profile is normal bicarb is 39 however, BUN is 55 creatinine 0.70. Chest x-ray showed continuing bilateral alveolar airspace disease and small bilateral effusions mostly on the right side. But previous ultrasound did not reveal enough fluid to safely perform thoracentesis. Bronchial washing has been positive for MRSA, cytology from the bronchial washing has been negative for malignancy. Patient is still now on vancomycin, Zosyn, and Levaquin. Continues to have intermittent episodes of hemoptysis, Coumadin and heparin remain on hold. Progress note dated 05/23/2018 This is a DO NOT RESUSCITATE patient who is 77 years of age. She was admitted way back on May 11 for respiratory failure. She was intubated on May 11 and finally extubated on the . She had bronchoscopy on the which apparently revealed methicillin-resistant staph aureus. Since extubation on the , she has been BiPAP dependent with settings of IPAP 16 EPAP 8 and an FiO2 50%. He is getting a saline IV just at KVO. As mentioned above, she is a DO NOT RESUSCITATE. She's been seen by my partners over the last number of days. The chest x-ray shows significant bilateral alveolar airspace disease with small effusions. None pleural effusion to do a thoracentesis on. Bronchial washings were positive for MRSA. Cytology has been negative. The patient remains on good antibiotic coverage. Overall, her prognosis remains poor. Her previous health was not very good. I'm glad that she has chosen to be a DO NOT RESUSCITATE and not to be reintubated. I think that is appropriate. Chest x-ray shows bilateral diffuse infiltrates. White count 15.2 hemoglobin 10 hematocrit 31.6 platelet count 149,000. Sodium potassium chloride normal CO2 40 be any crab were 54 and 0.93 bronchoscopy washings and sputum show evidence of methicillin resistant staph aureus. Medications are reviewed. Progress note dated 05/24/2018 The patient is again seen today. Currently she is a DO NOT RESUSCITATE. She spends half her time on BiPAP with settings of 16 IPAP and EPAP and 35% and the other time on AIRVO. Her IV is a saline IV at KVO. The patient did not have a chest x-ray today. The patient's last chest x-ray was done yesterday. I had a long talk with the family yesterday. The patient's bronchoscopy on the of this month showed epicillin resistant staph aureus. Chest x-ray shows diffuse bilateral infiltrates. We will get a chest x-ray tomorrow. The patient would not want to be reintubated again. She was very clear about that. The patient appears to be much more alert today. Still having some difficulty breathing. Not coughing very much. Not producing any phlegm. White count 21.1 hemoglobin 10.5 hematocrit 33.2 and platelet count 158,000. Sodium potassium chloride all normal. CO2 38. BUN and creatinine were 57 and 0.8. On 05/25/2018 patient seen again in follow-up in the intensive care unit. She remains on AIRVO at a flow of 45 L/m, and FiO2 of 60%, she is wearing her BiPAP at night at settings of 16/8, and 45% FiO2. Her maintenance IV is 0.9 normal saline at a rate of 20 ML per hour. She is awake, and alert, oriented 3, no focal neurological deficits. She is afebrile, hemodynamically stable. Today's chest x-ray has been reviewed by Dr. Barnhart, and findings are consistent of improving CHF and pulmonary edema with residual pulmonary vascular congestion, there is extensive opacity in the right mid and lower lung secondary to elevated right hemidiaphragm, and underlying [id number] pleural effusion with prominent adjacent lower lobe atelectasis and/or consolidation. For that reason patient needs aggressive pulmonary toileting, she needs percussion and vibration, incentive spirometry use. Bronchial wash cultures showed MRSA, and patient is being treated with IV vancomycin. She is on IV diuretics, 40 mg twice daily, she is in negative 7:30 ML fluid balance over the last 24 hours, there has been significant improvement in the appearance of bilateral lower extremity edema. Lung sounds are diminished, with coarse bilateral rhonchi and crackles, no wheezes. Today's labs were reviewed, WBC remains elevated at 21.2 , hemoglobin is 10.6, renal profile is stable, BUN 53, creatinine 0.7, electrolytes are within normal limits, with the exception of CO2 which is at 34. Patient remains on Diamox for metabolic alkalosis. No fever no chills, no worsening dyspnea. Only occasional cough, nonproductive. On 06/01/2018 I'm seeing this patient for a follow-up. The patient is not doing the best. She is a bit lethargic. She slept all night yesterday. This morning she is feeling weak and she is on fish short of breath on high flow oxygen at 15 right percent FiO2. Pulse ox around 94% on high flow oxygen. The CAT scan of the chest was done yesterday showed evidence of pulmonary edema. There was patchy infiltrates bilaterally likely on the basis of pulmonary edema. There is also small bilateral pleural effusion. The bibasilar compressive atelectatic changes were essentially improving. Based on these findings, increased the patient's Lasix up to 40 g twice a day on that he started the Diamox. The patient is diuresing. The patient is a negative fluid balance. A repeat chest x-ray from today shows improvement in the pulmonary edema. Nevertheless residual edema in the upper lobes and persistent consolidation of the right lower lobe along with small bilateral pleural effusion. The echocardiogram that was done at time of admission showed an ejection fraction of 50-55% and the left atrium was severely dilated. The patient has severe aortic stenosis present. The patient also has moderate degree of mitral regurgitation and severe mitral stenosis. There is also moderate to severe pulmonary hypertension present. As such there is obvious valvular heart disease which could be contributing to the patient's pulmonary edema and hypoxic respiratory failure. The patient is still on vancomycin regarding MRSA pneumonia. Vancomycin levels are being monitored on a regular basis. Renal function is still stable. The serum bicarb is 42. The patient is seen today 06/02/2018 in follow-up in the intensive care unit. She is currently awake and alert. She had an echocardiogram performed this morning. She is somewhat dyspneic currently on the AirVo currently at oxygen flow rate of 35 and 55% FiO2. O2 saturations were in the upper 80s. She is alternating back and forth between the BiPAP 16/8 and 45% FiO2 which keeps her O2 saturations in the 90s. Chest x-ray continues to show small to moderate right and small left pleural effusions with adjacent atelectasis. Persistent but improving interstitial pulmonary edema. She currently denies any significant discomfort. No chest pain or palpitations. Hemodynamically stable. Currently afebrile. White count 17.6. Hemoglobin 9.0. Creatinine 0.70. Bicarb 42. She remains on Lasix 40 mg IV push every 8 hours. She is continued on vancomycin. The patient is seen again today 06/03/2018 in follow-up in the intensive care unit. She remains BiPAP dependent at this point. Current settings 16/8 with an FiO2 of 45% to maintain O2 saturations in the 90s. Today's chest x-ray is basically unchanged showing mild pulmonary vascular congestion and trace pleural effusions. There is persistent right hemidiaphragm elevation. Repeat echocardiogram continues to reveal preserved left ventricular systolic function with ejection fraction 60-65%. There is moderate aortic stenosis and moderate to severe mitral stenosis along with moderate to severe pulmonary hypertension with an RVSP of 60 mmHg. She remains on Lasix 40 mg IV push every 8 hours. Currently in a negative balance. She is down 2 more kg. White count 16.1. Hemoglobin 8.9. Creatinine 0.76. She remains on vancomycin. On 06/04/2018, I'm seeing this patient for a follow-up. Unfortunately much much of progress over the past few days. Still on high flow oxygen. She is alternating with a BiPAP at a pressure of 16/8 cm of water. She is getting progressively more lethargic. Echocardiogram was repeated and there is no interval change. She has severe MS and aortic stenosis and preserved LV function. Remains on Lasix 3 times a day 40 mg IV push and Diamox. The blood work from today shows a white cell count of 14.0. Bicarb level of 41. BUN of 53. Creatinine of 0.7. Urine output is adequate and the patient is a negative fluid balance. Chest x-ray shows continuing opacity of the right lung. Improved vasculature and vascular congestion. Small bilateral pleural effusions. She remains on vancomycin. Had a lengthy discussion with the family. Her respiratory failure is thought to be related to staphylococcal pneumonia and valvular heart disease. On 06/05/2018, the patient is still in acute hypoxic respiratory failure, BiPAP dependent and high flow oxygen dependent. Overnight she stepped on the BiPAP at a pressure of 16/8 cm of water and FiO2 of 60%. This morning she is on high flow oxygen at 65% FiO2. Still on Lasix. Good urine output. Diamox for metabolic alkalosis. CAT scan of the chest was repeated and there was some improvement in the groundglass pulmonary infiltrates bilaterally although still extensive. She is on examination of cefepime vancomycin. She is on IV Solu- Medrol. She is on IV Lasix. She is weak. Oral intake is diminished probably 30-40% of her meals are being taken. No fever. No chills. She is lethargic yet arousable conscious awake and alert and communicating. Renal function is the same. I will say we are still at a standstill and there is no much improvement in her condition in general. On 06/06/2018, patient is basically about the same. Seems to be BiPAP dependent, could not tolerate high flow nasal cannula at all. She only lasted less than half an hour on high flow air vo2. Remains on BiPAP pressures of 16/8 and FiO2 of 60%. Chest x-ray is basically about the same. Patient remains on diuretics in the form of Lasix and Diamox. Continues to have interstitial edema and possibly underlying pulmonary infiltrates. Remains on antibiotics in the form of cefepime and vancomycin. She is also on IV Solu-Medrol. Patient has poor oral intake, and she seems to be generally weak and tired. She is alert oriented, and communicating well. Her labs were reviewed CBC is relatively normal hemoglobin is 8.4 WBC is 12.9 basic metabolic profile noted a bicarb of 39 BUN of 52 creatinine 0.60. On 06/07/2018 patient seen in follow-up in the intensive care unit. She remains BiPAP dependent, and unable to tolerate even short trials of high flow nasal cannula or Airvo. His chest x-ray has been reviewed, shows improving pulmonary edema, and residual pulmonary vascular congestion, persistent moderate right and small left pleural effusions with adjacent atelectasis. Afebrile, hemodynamically stable, tachypneic with respiratory rate 20-29 breaths per minute. Patient is being treated for MRSA pneumonia, and she remains on a combination of cefepime, and vancomycin. She remains on IV diuretics, with Lasix 40 mg every 8 hours. He is maintaining negative fluid balance, -1044 and last 24 hours. His labs have been reviewed, WBC is 14.4, Novolin is 8.8, platelet count is 56, sodium is 137, potassium is 4.1, chloride 97, CO2 of 39, BUN 56 and creatinine 0.6. She is generally weak, lung sounds reveal diminished breath sounds, more so over the left base, with diffuse crackles. In view of lack of significant improvement and protracted hospital course, requiring BiPAP support essentially continuously, patient's family is considering comfort care measures. Objective - Vital Signs Vital signs: Vital Signs Temp 97.8 F 06/07/18 04:00 Pulse 87 06/07/18 11:00 Resp 28 H 06/07/18 11:00 BP 149/63 06/07/18 11:00 Pulse Ox 94 L 06/07/18 11:00 Intake & Output 06/06/18 06/07/18 06/07/18 18:59 06:59 18:59 Intake Total 280 1167.013 29.25 Output Total 1690 802 155 Balance -1410 365.013 -125.75 Weight 102.1 kg 102.1 kg Intake: IV 280 1160 10 Cefepime 2 gm In Sodium 50 Chloride 0.9% 50 ml @ 100 mls/hr IVPB Q12HR [facility] Rx #:[id number] Potassium Chloride 10 meq 200 In Water For Injection 1 100ml.bag @ 100 mls/hr IVPB Q1H [facility] Rx#: [id number] Sodium Chloride 0.9% 1, 80 110 10 000 ml @ 10 mls/hr IV . Q24H [facility] Rx#:[id number] Sodium Chloride 0.9% 500 500 ml @ 999 mls/hr IV .Q31M [facility] Rx#:[id number] Vancomycin 1,750 mg In 500 Sodium Chloride 0.9% 500 ml @ 166.667 mls/hr IVPB Q16H [facility] Rx#:[id number] Intake, IV Titration 7.013 19.25 Amount Norepinephrine 16 mg In 7.013 19.25 Dextrose 5% in Water 250 ml @ Titrate IV .Q0M [facility] Rx#:[id number] Output: Urine 1690 802 155 Other: Voiding Method Indwelling Catheter Indwelling Catheter ABP, PAP, CO, CI - Last Documented Arterial Blood Pressure - Exam No acute distress, Nasal O2 in place. Patient appears much more alert today than yesterday. Remains BiPAP dependent HEENT examination is grossly unremarkable. Mucous membranes are moist. Neck supple. Full range of motion. No adenopathy thyromegaly or neck vein distention. Cardiovascular examination reveals regular rhythm rate. S1-S2 normal. No S3 or S4. A loud systolic murmur of aortic stenosis is noted.. Lungs reveal severely diminished breath sounds throughout. There is coarse bilateral rhonchi and crackles. No wheezes. Breath sounds are equal bilaterally. Abdomen soft. Bowel sounds are not noted. No masses or tenderness. Extremities are intact. No cyanosis clubbing or edema. Skin is without rash or lesion. Neurologic examination is brief but nonfocal. - Labs CBC & Chem 7: 06/07/18 04:40 06/07/18 04:40 Labs: Abnormal Lab Results - Last 24 Hours (Table) 06/06/18 06/06/18 06/06/18 Range/Units 14:23 17:24 20:35 WBC (3.8-10.6) k/uL RBC (3.80-5.40) m/uL Hgb (11.4-16.0) gm/dL Hct (34.0-46.0) % RDW (11.5-15.5) % Plt Count (150-450) k/uL Neutrophils # (Manual) (1.3-7.7) k/uL Lymphocytes # (Manual) (1.0-4.8) k/uL Chloride (98-107) mmol/L Carbon Dioxide (22-30) mmol/L BUN (7-17) mg/dL Glucose (74-99) mg/dL POC Glucose (mg/dL) 185 H 244 H 202 H (75-99) mg/dL 06/07/18 06/07/18 06/07/18 Range/Units 04:40 04:40 07:02 WBC 14.4 H (3.8-10.6) k/uL RBC 2.85 L (3.80-5.40) m/uL Hgb 8.8 L (11.4-16.0) gm/dL Hct 27.3 L (34.0-46.0) % RDW 21.2 H (11.5-15.5) % Plt Count 56 L (150-450) k/uL Neutrophils # (Manual) 13.97 H (1.3-7.7) k/uL Lymphocytes # (Manual) 0.14 L (1.0-4.8) k/uL Chloride 97 L (98-107) mmol/L Carbon Dioxide 39 H (22-30) mmol/L BUN 56 H (7-17) mg/dL Glucose 160 H (74-99) mg/dL POC Glucose (mg/dL) 184 H (75-99) mg/dL Microbiology - Last 24 Hours (Table) 05/19/18 11:15 Fungal Culture - Preliminary Bronchial Washings - Right Assessment and Plan Plan: Assessment: 1 acute hypoxic respiratory failure with bilateral lower lobe pneumonia secondary to MRSA and the patient is currently on IV vancomycin. In addition, there is a component of pulmonary edema secondary to CHF/valvular heart disease. We have reached a plateau in terms of recovery and were not seeing any further improvement in her condition as mentioned earlier. the pulmonary infiltrates are essentially interstitial edema related to valvular heart disease /CHF. I think the MRSA pneumonia itself has recovered. The patient has small bilateral pleural effusion and thoracentesis would not be of any significant benefit to this patient. 2 bilateral lower lobe pneumonia. This is a MRSA pneumonia which is being treated with vancomycin. 3 acute cardiac pulmonary arrest with brief loss impulses at a time of admission , recovered 4 lactic acidosis secondary to above, recovered 5 leukocytosis secondary to above, and the white cell count is down to 13 6 morbid obesity with a BMI of 43.4 7 obstructive sleep apnea 8 severe persistent bronchial asthma 9 history of right hemidiaphragmatic plication for unilateral paralysis 10 moderate to severe severe aortic stenosis and mitral stenosis, with a preserved LV function as evident on the echocardiogram 11 history of TIA 12 nephrolithiasis 13 gouty arthritis 14 hypothyroidism 13 hypertension 16 hyperlipidemia 17 history of atrial fibrillation 18 acid reflux 19 gout 20 degenerative arthritis 21 episodes of SVT, and currently the patient is atrial fibrillation with a controlled rate and she is currently on amiodarone 200 mg by mouth twice a day and Eliquis 5 mg by mouth twice a day for long-term anticoagulation. Her echocardiogram shows a preserved LV function. 22 thrombocytopenia, currently off Eliquis Plan: Continue current medical treatment, continue Lasix and Diamox continue BiPAP support, high flow nasal cannula trials as tolerated. Remains very much BiPAP dependent, and has not been able to tolerate even short trials off it. Continue vancomycin and cefepime, she has had no fevers, no chills, today's chest x-ray shows persistence of pleural effusions, and residual vascular congestion, related to congestive heart failure. Continue systemic steroids, not significantly bronchospastic on today's exam, and we will transition the IV Solu-Medrol to oral prednisone. Continue nebulized bronchodilators, Eliquis remains on hold, platelet count remains stable at 56,000. No evidence of bleeding. Overall patient is reached plateau in terms of her recovery, and there has been a lack of significant clinical progress. She is generally weak, remains BiPAP dependent, during this protracted and difficult clinical course, and the patient and the family are considering proceeding with comfort care measures. Continue with supportive care for now. I performed a history & physical examination of the patient and discussed their management with my nurse practitioner, Marianela Sparks. I reviewed the nurse practitioner's note and agree with the documented findings and plan of care. Lung sounds are diminished lung sounds, with scattered rhonchi and rales, no wheezing. The findings and the impression was discussed with the patient. I attest to the documentation by the nurse practitioner. Time with Patient: Greater than 30
--- NOTE | 2018-06-07 11:59 | P.PN ---
Subjective Patient continues in intensive care unit on BiPAP has made no progress. Family wanting to discuss options with clinical trial manager. Want to continue with present level of care until her options of discuss Objective - Vital Signs Vital signs: Vital Signs Temp 97.8 F 06/07/18 04:00 Pulse 92 06/07/18 11:44 Resp 28 H 06/07/18 11:00 BP 149/63 06/07/18 11:00 Pulse Ox 94 L 06/07/18 11:00 Intake & Output 06/06/18 06/07/18 06/07/18 18:59 06:59 18:59 Intake Total 280 1167.013 29.25 Output Total 1690 802 155 Balance -1410 365.013 -125.75 Weight 102.1 kg 102.1 kg Intake: IV 280 1160 10 Cefepime 2 gm In Sodium 50 Chloride 0.9% 50 ml @ 100 mls/hr IVPB Q12HR [facility] Rx #:[id number] Potassium Chloride 10 meq 200 In Water For Injection 1 100ml.bag @ 100 mls/hr IVPB Q1H [facility] Rx#: [id number] Sodium Chloride 0.9% 1, 80 110 10 000 ml @ 10 mls/hr IV . Q24H [facility] Rx#:[id number] Sodium Chloride 0.9% 500 500 ml @ 999 mls/hr IV .Q31M [facility] Rx#:[id number] Vancomycin 1,750 mg In 500 Sodium Chloride 0.9% 500 ml @ 166.667 mls/hr IVPB Q16H [facility] Rx#:[id number] Intake, IV Titration 7.013 19.25 Amount Norepinephrine 16 mg In 7.013 19.25 Dextrose 5% in Water 250 ml @ Titrate IV .Q0M [facility] Rx#:[id number] Output: Urine 1690 802 155 Other: Voiding Method Indwelling Catheter Indwelling Catheter ABP, PAP, CO, CI - Last Documented Arterial Blood Pressure 24/24 - Constitutional General appearance: Present: obese - EENT Eyes: Present: PERRLA Ears: bilateral: normal - Neck Neck: Present: normal ROM - Respiratory Respiratory: bilateral: diminished - Cardiovascular Rhythm: irregularly irregular Abnormal Heart Sounds: Present: systolic murmur - Gastrointestinal General gastrointestinal: Present: soft - Integumentary Integumentary: Present: normal - Neurologic Neurologic: Present: CNII-XII intact - Musculoskeletal Musculoskeletal: Present: generalized weakness - Psychiatric Psychiatric: Present: A&O x's 3, appropriate affect, intact judgment & insight - Labs CBC & Chem 7: 06/07/18 04:40 06/07/18 04:40 Labs: Abnormal Lab Results - Last 24 Hours (Table) 06/06/18 06/06/18 06/06/18 Range/Units 14:23 17:24 20:35 WBC (3.8-10.6) k/uL RBC (3.80-5.40) m/uL Hgb (11.4-16.0) gm/dL Hct (34.0-46.0) % RDW (11.5-15.5) % Plt Count (150-450) k/uL Neutrophils # (Manual) (1.3-7.7) k/uL Lymphocytes # (Manual) (1.0-4.8) k/uL Chloride (98-107) mmol/L Carbon Dioxide (22-30) mmol/L BUN (7-17) mg/dL Glucose (74-99) mg/dL POC Glucose (mg/dL) 185 H 244 H 202 H (75-99) mg/dL 06/07/18 06/07/18 06/07/18 Range/Units 04:40 04:40 07:02 WBC 14.4 H (3.8-10.6) k/uL RBC 2.85 L (3.80-5.40) m/uL Hgb 8.8 L (11.4-16.0) gm/dL Hct 27.3 L (34.0-46.0) % RDW 21.2 H (11.5-15.5) % Plt Count 56 L (150-450) k/uL Neutrophils # (Manual) 13.97 H (1.3-7.7) k/uL Lymphocytes # (Manual) 0.14 L (1.0-4.8) k/uL Chloride 97 L (98-107) mmol/L Carbon Dioxide 39 H (22-30) mmol/L BUN 56 H (7-17) mg/dL Glucose 160 H (74-99) mg/dL POC Glucose (mg/dL) 184 H (75-99) mg/dL Microbiology - Last 24 Hours (Table) 05/19/18 11:15 Fungal Culture - Preliminary Bronchial Washings - Right - Imaging and Cardiology Chest x-ray: report reviewed Assessment and Plan Assessment: Assessment Acute hypoxic respiratory failure secondary to bilateral lobe pneumonia congestive heart failure Post extubation on BiPAP Sepsis secondary to pneumonia Post acute cardiopulmonary arrest Morbid obesity BMI 44.9 Sleep apnea on BiPAP at home Acute on chronic congestive heart failure diastolic dysfunction as well as valvular disease ejection fraction 60-65% pulmonary edema with pulmonary hypertension History of right he right hemidiaphragmatic plication with unilateral paralysis History of TIA Osteoarthritis Hypothyroidism Paroxysmal atrial fibrillation Pleural effusion Post bronchoscopy with positive MRSA GERD Gout Hypotension Post PICC line Plan No code no CPR per family and patient's wishes Continue consultation with pulmonology and cardiology Family considering comfort care Continue present level care
[2018-06-07 12:37] LABS: Glucose,Whole Blood 210 mg/dL (75-99)
[2018-06-07] MEDS: SODIUM CHLORIDE 0.9% 1,000 ML IV SCH (12:57)
[2018-06-07] MEDS: VANCOMYCIN 1,500 MG in SODIUM CHLORIDE 0.9% 250 ML IVPB SCH (14:53)
[2018-06-07 17:09] LABS: Glucose,Whole Blood 214 mg/dL (75-99)
[2018-06-07] MEDS: BENZOCAINE 20% HEMORRHOIDAL OINT 28GM RECTAL SCH (18:11)
[2018-06-07 21:01] LABS: Glucose,Whole Blood 219 mg/dL (75-99)
[2018-06-07] MEDS: ALPRAZolam 0.25 MG TAB PO PRN (21:49)
[2018-06-08 05:58] LABS: Anisocytosis Moderate; Basophils % (A) 0 %; Eosinophils % (A) 0 %; HCT 29.1 % (34.0-46.0); Hypochromasia Slight; Lymphocytes # (A) 0.5 k/uL (1.0-4.8); Lymphocytes % (A) 3 %; MCH 29.7 pg (25.0-35.0); MCHC 30.9 g/dL (31.0-37.0); MCV 96.3 fL (80.0-100.0); Macrocytosis Moderate; Mean Platelet Volume 9.2; Monocytes # (A) 0.6 k/uL (0-1.0); Monocytes % (A) 4 %; Neutrophils # (A) 13.9 k/uL (1.3-7.7); Neutrophils % (A) 92 %; RBC 3.02 m/uL (3.80-5.40); RDW 21.1 % (11.5-15.5); WBC 15.2 k/uL (3.8-10.6)
[2018-06-08 06:05] LABS: Platelet Count 66 k/uL (150-450)
[2018-06-08 06:49] LABS: Blood Urea Nitrogen 50 mg/dL (7-17); Calcium 8.3 mg/dL (8.4-10.2); Chloride 97 mmol/L (98-107); Glucose 127 mg/dL (74-99); Magnesium 2.1 mg/dL (1.6-2.3); Phosphorus 2.8 mg/dL (2.5-4.5); Potassium 3.3 mmol/L (3.5-5.1); Sodium 140 mmol/L (137-145)
[2018-06-08] MEDS: VANCOMYCIN 1,500 MG in SODIUM CHLORIDE 0.9% 250 ML IVPB SCH (06:50)
[2018-06-08] MEDS: LEVOTHYROXINE 50 MCG TAB PO SCH (06:50)
[2018-06-08 06:59] LABS: Anion Gap 5 mmol/L
[2018-06-08 07:03] LABS: Carbon Dioxide 38 mmol/L (22-30)
[2018-06-08 07:06] LABS: Glucose,Whole Blood 143 mg/dL (75-99)
[2018-06-08] MEDS ORDERED: Potassium Replacement Protocol 1 EACH MISC MISCELLANE PRN (07:06)
--- NOTE | 2018-06-08 08:07 | XR ---
EXAMINATION TYPE: XR chest 1V portable DATE OF EXAM: 06/08/2018 CLINICAL HISTORY: Difficulty breathing progress study. CHF and pneumonia. TECHNIQUE: Single AP portable semiupright view of the chest is obtained. COMPARISON: Chest x-ray from one day earlier and older studies. FINDINGS: There is stable right-sided PICC line. There is cardiomegaly with atherosclerotic thoracic aorta. There is worsening central airspace opacities bilaterally. There is persistent bibasilar opac ities. No pneumothorax is seen bilaterally. Osseous structures are intact. IMPRESSION: Cardiomegaly with small to moderate-sized bilateral pleural effusions redemonstrated. Wor sening bilateral edema and/or infiltrates noted. Correlate for worsening CHF exacerbation and/or deve loping ARDS.
[2018-06-08 08:09] VITALS: TEMP 97.7
[2018-06-08] MEDS: IPRATROPIUM-ALBUTEROL 3 ML NEB INHALATION SCH ×2 (08:40→12:11)
[2018-06-08] MEDS ORDERED: DOCUSATE 100 MG CAP PO SCH (09:00)
[2018-06-08] MEDS ORDERED: predniSONE 20 MG TAB PO SCH (09:00)
[2018-06-08] MEDS: POTASSIUM CHLORIDE 20 MEQ in WATER FOR INJECTION 1 100ML.BAG IVPB SCH ×2 (10:42→16:03)
[2018-06-08] MEDS: INSULIN ASPART 100 UNIT/ML 1 ML 10 ML VIAL SQ SCH (10:43)
[2018-06-08] MEDS: FUROSEMIDE 10 MG/ML 4 ML VIAL IV SCH (10:44)
[2018-06-08] MEDS: AMIODARONE 200 MG TAB PO SCH (10:44)
[2018-06-08] MEDS: PANTOPRAZOLE 40 MG TABLET PO SCH (10:45)
[2018-06-08] MEDS: DILTIAZEM ORAL 30 MG TAB PO SCH ×2 (10:45→16:04)
[2018-06-08] MEDS: BENZOCAINE 20% HEMORRHOIDAL OINT 28GM RECTAL SCH ×2 (10:46→16:04)
--- NOTE | 2018-06-08 11:15 | P.PN ---
Subjective Patient resting in bed on 100% O2 BiPAP desatted to 84% dyspneic. Family at bedside. Family is having family meeting to discuss treatment options including hospice Objective - Vital Signs Vital signs: Vital Signs Temp 97.7 F 06/08/18 08:00 Pulse 105 H 06/08/18 09:07 Resp 28 H 06/08/18 08:00 BP 128/51 06/08/18 08:00 Pulse Ox 100 06/08/18 08:00 Intake & Output 06/07/18 06/08/18 06/08/18 18:59 06:59 18:59 Intake Total 533.747 275 Output Total 1400 785 Balance -866.253 -510 Weight 102.1 kg 101.5 kg Intake: IV 510 275 Cefepime 2 gm In Sodium 50 Chloride 0.9% 50 ml @ 100 mls/hr IVPB Q12HR [facility] Rx #:[id number] Sodium Chloride 0.9% 1, 10 100 000 ml @ 10 mls/hr IV . Q24H [facility] Rx#:[id number] Vancomycin 1,500 mg In 500 125 Sodium Chloride 0.9% 250 ml @ 125 mls/hr IVPB Q16H [facility] Rx#:[id number] Intake, IV Titration 23.747 Amount Norepinephrine 16 mg In 23.747 Dextrose 5% in Water 250 ml @ Titrate IV .Q0M [facility] Rx#:[id number] Output: Urine 1400 785 Other: Voiding Method Indwelling Catheter Indwelling Catheter Indwelling Catheter ABP, PAP, CO, CI - Last Documented Arterial Blood Pressure 24/24 - Constitutional General appearance: Present: morbidly obese, severe distress - EENT Eyes: Present: PERRLA Ears: bilateral: normal - Neck Neck: Present: normal ROM - Respiratory Respiratory: bilateral: diminished - Cardiovascular Rhythm: irregularly irregular Abnormal Heart Sounds: Present: systolic murmur - Gastrointestinal General gastrointestinal: Present: soft - Integumentary Integumentary: Present: normal - Neurologic Neurologic: Present: CNII-XII intact - Musculoskeletal Musculoskeletal: Present: generalized weakness - Psychiatric Psychiatric: Present: A&O x's 3, appropriate affect, intact judgment & insight - Labs CBC & Chem 7: 06/08/18 05:45 06/08/18 05:45 Labs: Abnormal Lab Results - Last 24 Hours (Table) 08/05/1806/07/18 06/07/18 Range/Units 12:36 17:07 20:59 WBC (3.8-10.6) k/uL RBC (3.80-5.40) m/uL Hgb (11.4-16.0) gm/dL Hct (34.0-46.0) % MCHC (31.0-37.0) g/dL RDW (11.5-15.5) % Plt Count (150-450) k/uL Neutrophils # (1.3-7.7) k/uL Lymphocytes # (1.0-4.8) k/uL Potassium (3.5-5.1) mmol/L Chloride (98-107) mmol/L Carbon Dioxide (22-30) mmol/L BUN (7-17) mg/dL Glucose (74-99) mg/dL POC Glucose (mg/dL) 210 H 214 H 219 H (75-99) mg/dL Calcium (8.4-10.2) mg/dL 06/08/18 06/08/18 06/08/18 Range/Units 05:45 05:45 07:05 WBC 15.2 H (3.8-10.6) k/uL RBC 3.02 L (3.80-5.40) m/uL Hgb 9.0 L (11.4-16.0) gm/dL Hct 29.1 L (34.0-46.0) % MCHC 30.9 L (31.0-37.0) g/dL RDW 21.1 H (11.5-15.5) % Plt Count 66 L (150-450) k/uL Neutrophils # 13.9 H (1.3-7.7) k/uL Lymphocytes # 0.5 L (1.0-4.8) k/uL Potassium 3.3 L (3.5-5.1) mmol/L Chloride 97 L (98-107) mmol/L Carbon Dioxide 38 H (22-30) mmol/L BUN 50 H (7-17) mg/dL Glucose 127 H (74-99) mg/dL POC Glucose (mg/dL) 143 H (75-99) mg/dL Calcium 8.3 L (8.4-10.2) mg/dL Microbiology - Last 24 Hours (Table) 05/19/18 11:15 Acid Fast Bacilli Smear - Final Bronchial Washings - Right Acid Fast Bacilli Culture - Preliminary - Imaging and Cardiology Chest x-ray: report reviewed (Increasing pulmonary edema) Assessment and Plan Plan: Assessment Acute hypoxic respiratory failure multifactorial pneumonia congestive heart failure post extubation on BiPAP Post acute pulmonary respiratory arrest Sepsis secondary pneumonia Sleep apnea on BiPAP at home Morbid obesity BMI 44.9 Acute on chronic congestive heart failure diastolic dysfunction ejection fraction 60-65% pulmonary edema pulmonary hypertension History of TIA History of right hemidiaphragmatic plication with unilateral paralysis Osteoarthritis Hypothyroidism Paroxysmal atrial fibrillation GERD Gout Hypotension Hypertension Pleural effusion Post bronchoscopy with positive MRSA ARDS Post PICC line insertion Plan Continue consultation with pulmonology and cardiology Condition grave Family considering hospice Patient continues no code no CPR no ventilator per family and patient
[2018-06-08] MEDS ORDERED: LORazepam 2 MG/ML INJ IV STA (11:55)
[2018-06-08] MEDS ORDERED: LORazepam 2 MG/ML INJ ONE (12:01)
[2018-06-08] MEDS ORDERED: SCOPOLAMINE 1.5MG/72HR PATCH TRANSDERM PRN (13:11)
[2018-06-08] MEDS ORDERED: LORazepam 2 MG/ML INJ IV PRN (13:11)
[2018-06-08] MEDS ORDERED: MORPHINE SULFATE 4 MG/ML SYRINGE IV PRN (13:11)
[2018-06-08] MEDS ORDERED: ONDANSETRON 4 MG/2 ML VIAL IVP PRN (13:11)
[2018-06-08] MEDS ORDERED: MORPHINE SULFATE 4 MG/ML SYRINGE ONE (13:15)
[2018-06-08] MEDS ORDERED: MORPHINE SULFATE (100 MG/2 ML) 100 MG in SODIUM CHLORIDE 0.9% 100 ML IV SCH (13:15)
[2018-06-08 13:40] VITALS: BP 120/66; PULSE 111; RESP 31
--- NOTE | 2018-06-08 14:31 | P.PN ---
Subjective Progress Note Date: 06/08/18 Principal diagnosis: Acute hypoxemic respiratory failure secondary to bilateral lower lobe pneumonia , and congestive heart failure A 77-year-old morbidly obese female patient with known history of obstructive sleep apnea maintained on BiPAP therapy on outpatient basis and addition to chronic bronchial asthma and significant limitation in exercise capacity secondary to her age body habitus and comorbidities, presented to the hospital because of an acute respiratory failure. I interviewed the daughter. Apparently the patient was at [employer] studies and she was getting progressively more short of breath. After arriving home she did [id number] breathing treatments without much relief. Ultimately she called her daughter who arrived to the scene and she saw that her mother was having more chest congestion, respirator distress, wheezing, and she was headed into respiratory failure. EMS was called to the scene. Upon arrival of EMS, the patient's pulse ox was in the low 70s pH was placed on on the percent nonrebreather facemask as she remained hypoxic and following that the patient was placed on BiPAP. The patient was moved to the emergency department. The patient was seen immediately after she arrived the ED. She was hypoxic, and she was cold and clammy and salmon color and cyanotic. As we were getting ready to intubate the patient, the patient lost pulse briefly and she became bradycardic. She went to the [facility]. She received a dose of epinephrine. She was started on CPR. Within 1 minute she recovered her pulse and the blood pressure. She was intubated and placed on a mechanical ventilator. She currently has a 7.[address] She is an assist-control mode of ventilation at the rate of 26, tidal volume of 400, FiO2 of 100% and a PEEP of 5. Immediately postintubation the blood pressure improved and she had a systolic above 200. She was started on propofol for sedation and her current systolic blood pressure in the 150s. A Poe catheter was inserted. The peak pressures in the 38-40 range. Static pressures around 32. The patient has significant bronchospasm and wheezing. A chest x-ray was done post intubation and post line placement and the chest x- ray showed no evidence of any pneumothorax. Bilateral air space disease was present in the perihilar regions in the lower lobes bilaterally right more than left. ET tube and NG tube were in good location. The patient also had a left subclavian triple-lumen catheter that was inserted without any complications. She was started on IV Zosyn knowing that the patient also briefly aspirated and vomited at the time of the intubation. Labs showed a white cell count of 22. The postintubation blood gas showed a pH of 7.21 with a pCO2 of 63 and pO2 of 88 and this blood gases on 100% FiO2. Initial lactic acid level was at 5.9 On today's evaluation of 05/12/2018 I'm seeing this patient for a follow-up. The patient remains intubated on a mechanical ventilator. Sedated with Diprivan at 30 mics per KG per minute. She is well sedated and she is synchronous with the mechanical ventilator. She is an assist-control mode of ventilation at the rate of 26 with a tidal volume of 400 and FiO2 of 60% with a PEEP of 5. The patient's chest x-ray from today is showing some mild improvement examination of the right midlung field. Otherwise the rest of the signs are all stable. ET tube is in a good location. The patient has consolidation of the right lung involving the right apex and the right lung base. There is also some perihilar pulmonary infiltrates bilaterally addition to some cardiomegaly. There is chronic elevation of the right hemidiaphragm. The blood gases from today showed a pH of 7.33 with a pCO2 of 47 and pO2 of 77 and it wasn't an FiO2 of 60%. The lactic acid level is down to 1.9 from 2.9 in addition. The patient was given briefly a sedation holiday and she was able to follow commands, simple commands and following that the patient was placed back on sedation. She did not require any pressors and the patient is maintaining home blood pressure. She was seen by cardiology today. Echocardiogram was done. The echo showed normal LV function with hypertensive heart disease and evidence of severe mitral stenosis with a mean gradient across the mitral valve of 20 mmHg as well as moderate to severe aortic stenosis with a mean gradient across the valve of 30 mmHg. The patient's cardiac rhythm is still sinus. She remains on broad-spectrum antibiotic coverage with a combination of Zosyn and Levaquin. The sputum cultures still negative for now. Blood cultures have been sent and the results are still negative for now. White cell count is elevated at 22.3. The patient was started on Lasix by cardiology 40 mg IV every 24 hours. She is also normal state rate of 40 mL an hour for now. On today's evaluation of 05/13/2018, the patient remains intubated on a mechanical ventilator. She is lightly sedated and the patient can easily aroused from propofol infusion. She remains on a mechanical ventilator the same vent setting. The blood gas from today, while on the 50% FiO2 showed a pH of 7.39 with a pCO2 of 40 and a pO2 of 81. White cell count is down to 17. The chest x-ray from today is showing persistent bilateral pulmonary infiltrates most on the right upper lobe and the right lower lobe. There is also small bilateral pleural effusion and cardiomegaly. ET tube remains in a good location. Cultures of been all negative thus far. The patient is afebrile and the patient is hemodynamically stable. Also, echocardiogram showed moderate to severe mitral stenosis and aortic valve stenosis and the patient was started on diuresis yesterday. I think we need to diurese this patient more aggressively over the next 24 hours. She'll feeds are running and the patient is tolerating her tube feeds without any major difficulties. Patient is producing adequate amount of urine output. Cardiac rhythm remains sinus. No other significant events over the past 24 hours. On 05/14/2089 seeing this patient for a follow-up. The patient remains intubated on a mechanical ventilator. She is on gentle sedation and she can easily aroused from her sedation and she can follow commands and answer questions appropriately. Her chest x-ray from today is showing some improvement in the aeration of the right lung. The patient has developed a consolidation and effusion the right lung base. The upper lobes are more clear. ET tube is in a good location. She remains on a mechanical ventilator. Assist-control mode of ventilation. She has a rate of 26, tidal volume of 400 , FiO2 is still at 60% with a PEEP of 5. Her blood gases from today showed a pH of 7.39 , pCO2 of 49 and pO2 of 81. I doubt the FiO2 down to 50%. I asked the nursing staff to stop the sedation completely and we checked her weaning parameters and the weaning parameters showed a NIF of -35 and vital Of 935 and the rapid shallow breathing index was less than 100. Based on that, the patient was given a spelled his breathing trial. She lasted for a total of 30 minutes. Following that she became tachycardic and cachectic. Blood gases obtained and the patient had a pH of 7.48 with a pCO2 of 48 and pO2 of 78. Nevertheless, based on ongoing shortness of breath, we decided not to extubate the patient knowing that she was not quite ready for extubation. Noted over the past 24 hours to monitor the patient has significant cardiac events. The patient went into an SVT. She was a rapid ventricular response. She had to be cardioverted. Subsequently she went into atrial fibrillation/flutter rhythm. Her rate is controlled for now. Nevertheless the patient is on Cardizem 30 mg by mouth 3 times a day. She was also placed on IV heparin by cardiology. As mentioned earlier she has valvular heart disease with severe mitral regurgitation stenosis. The diuretics have been cut down to 40 g IV Lasix every 12 hours. The net fluid balance is -2 L for yesterday. No fever. No chills. White cell count is down to 12.6. On 05/15/2018, patient is being seen in follow-up. He remains on a mechanical ventilator. Still on the same vent setting within assist-control mode at the rate of 26 with an FiO2 of 50% with a tidal volume of 400 and a PEEP of 5. The blood gas showed a pH of 7.45 with a pCO2 of 51 and pO2 of 91. No major improvement of the chest x-ray finding and the patient continues to have significant amount of bilateral airspace disease and bilateral pleural effusion more so on the right. The patient is in a controlled rhythm with atrial fibrillation. The patient is diuresing gently with IV Lasix. Unable to do aggressively diurese this patient because of evolving hypotension. The patient has severe mitral stenosis and approximately 2 fibrillation. The patient is also on broad-spectrum antibiotic coverage. She was given a sedation holiday and this point is breathing trial which she was able to tolerate for quite some time and following that she became short of breath and tachycardic and tachypneic and based on that the child was discontinued and the patient was not extubated. She is in a negative fluid balance. The net fluid balance for yesterday was -1.6 L. We are still diuresing this patient and she has a good urine output. She is afebrile. She is tolerating her tube feeds. She is very easily arousable and currently she is sedated with Diprivan. Overall no major changes and conditions compared to yesterday. I'm going to proceed with a CAT scan of the chest to characterized the pulmonary abnormalities. At the same time the patient was started on anticoagulation with warfarin. On 05/16/2018, patient was evaluated, and she remains on mechanical ventilation. Her ventilator settings are assist control rate of 26, tidal volume of 400, FiO2 of 50%, and PEEP of 5. ABG showed a pO2 of 78 pCO2 of 51 pH of 7.48. Patient is awake, responsive to all verbal commands, follows all instructions, hence I took her off propofol, and recommended a spontaneous breathing trial. Placed on pressure support of 10 with CPAP, however she only lasted about 20 minutes and she was noted to have increased respiratory rate, tachycardia, and she was developing a bit of respiratory distress. Hence the patient was switched back to assist control mode of mechanical ventilation. And I felt that she is not ready to be weaned. Ultrasound of the chest was done, there was evidence of less than 5 cm pocket of fluid on the right pleural space, hence I did not feel the patient would benefit much from thoracentesis, not to mention that is associated with thoracentesis considering the amount of fluid is small. All labs were reviewed, her renal profile seems to be relatively normal however her BUN is 53 creatinine is 0.70, more of a prerenal type of azothemia. CBC is relatively normal with minimal leukocytosis. Heparin is therapeutic for her atrial fibrillation. Hemodynamically, the patient is stable , and not requiring any norepinephrine at this point. Propofol is presently on hold. Nutrition is also address, and the patient is being fed with nasogastric tube/enteral feeding. Fluid balance noted over the last 24 hours to be about 90 mL positive. Hence the Lasix dose was increased to twice a day. On 05/17/2018, patient remains on mechanical ventilation, ventilator settings at present are tidal volume of 400, assist control rate of 16 FiO2 of 50% and PEEP of 5. ABG showed a pO2 of 134 pCO2 of 37 pH of 7.62. Patient is not breathing beyond the ventilator settings, hence I cut down her rate from 20-16. And I felt that the patient has significant metabolic alkalosis, but probably this patient's baseline pCO2 is normally in the 50s or 60s to begin with. So the alkalosis were noting is metabolic and respiratory in nature or alkalosis post correction of respiratory acidosis. At any rate we'll continue diuretics, her chest x-ray continues to show bilateral pleural effusion especially on the right side, but the ultrasound did not show enough fluid to safely perform a thoracentesis the pocket was less than 5 cm. Fluid balance is negative about 1258 in the last 24 hours. Urine output remains excellent. Renal functioning is about the same with a BUN of 53 creatinine of 0.70. Patient was placed on amiodarone by cardiology, and she is on heparin for atrial fibrillation. WBC count is 15.8 hemoglobin is 12.5. Patient is on 50 g of propofol, but she is awake, following all instructions, and I suggested that we discontinue propofol , wake of the patient, and given a trial of pressure support of 10 and CPAP. If tolerated we could potentially consider extubating the patient to BiPAP. If not tolerated a sugar go back on assist control mode of mechanical ventilation, higher dose of propofol to sedate her a bit more, and wait for another day to address weaning all over again. Patient was reevaluated today on 05/18/2018, remains on mechanical ventilation, ventilator settings are about the same, unchanged from yesterday. ABG showed a pO2 of 99 pCO2 of 49 pH of 7.51. Potassium is a bit low being corrected as per protocol. BUN remains 52 creatinine 0.66, patient remains on diuretics, repeat ultrasound of the chest continues to show very small tiny right-sided pleural effusion. Not large enough to consider thoracentesis. Chest x-ray is suggestive of central vascular congestion with right basilar consolidation, and small pleural effusion. Patient was taken off propofol, kept on assist control mode of mechanical ventilation, however she was noted to be extremely agitated and restless and tachypneic as well as tachycardic. Hence placed back on propofol, and clearly she is not amenable at this point. Discussed her condition with family at bedside, and we felt at this point patient may be ready for tracheostomy and PEG tube placement. She is going to be extremely difficult to wean. Radius attempts to wean the patient have failed and the patient has been now on mechanical ventilation for 8 days. Remains on the same medications, diuretics, amiodarone, DuoNeb updrafts, remains on antibiotics in the form of Levaquin and Zosyn. Cultures have been nondiagnostic, more sputum cultures were sent today. Nutrition-hassan the patient is receiving enteral feeding. She remains also on GI and DVT prophylaxis. Patient was reevaluated today on 05/19/2018, remains on mechanical ventilation, assist control mode of mechanical ventilation, FiO2 is now to 40%, assist control rate of 16, volume is 400, and PEEP is 5. ABG was noted, patient was given a trial of weaning, and even on assist control mode of mechanical ventilation, patient was breathing basically up in the high 20s and low 30s. As we went to pressure support and CPAP, patient looked extremely tachypnea, she was getting a bit tachycardic, and noted to show some signs of respiratory distress. Hence I updated the family on her condition, and suggested bronchoscopy and evaluation of the right lower lobe. This was done, and the fluid from the right lower lobe was sent for different diagnostic studies. Discussed with the family again plans for tracheostomy and PEG tube placement, apparently they discuss this with her when she was awakened off propofol, and they are all now in agreement that the patient would not have wanted this to begin with. So having said that, I believe were to try to proceed with daily weaning trials, and once we have a window of weaning, we will wean and extubate , and probably not to reintubate. Even if the patient fails and that will be further discussed again on again with the family and with the patient. They seem to be inclined to not consider trach and PEG, but will be willing to proceed with weaning and extubation and not to reintubate at that time we think it is best to extubate. White count is high today 32.3. Her ABG showed a pO2 of 96 pCO2 of 53 pH of 7.53. Basic metabolic profile is relatively normal, bicarb is 39 BUN is 47 creatinine is 0.6. Chest x-ray showed no major change, there is evidence of small pleural effusion, right lower lobe consolidation, and bibasilar airspace disease. Slight cardiac enlargement noted. Right diaphragm is elevated. Patient was reevaluated today on 05/20/2018, remains on mechanical ventilation, basically on the same ventilator settings, have not been changed. ABG showed a pO2 of 81 pCO2 of 56 pH of 7.51. Gram stain from the bronchial culture is showing many gram-positive cocci in clusters, hence I went ahead and added vancomycin to her present course of antibiotics empirically until the final culture is available. Family is all in the room today, and they basically have made a decision to extubate the patient to a noninvasive positive pressure ventilation, and if the patient does well, had to be great, if she doesn't do well, they will likely proceed with comfort care measures. This is all decided upon by all her family members and the patient herself. Hence the patient was taken off sedation, placed on pressure support mode of mechanical ventilation with a pressure support of 16, we have discontinued her propofol, discontinued all her sedation, and once the patient was awake, and responsive following instructions, she was switched to pressure support of 16 and CPAP. She seems to be doing well, in the meantime I have recommended diuretics since her chest x -ray was showing slight worsening she was given a dose of Lasix, and a dose of Diamox. Family is all in agreement to proceed with extubation, and again if not tolerated to proceed with comfort care measures. In the meantime the patient is DO NOT RESUSCITATE CODE STATUS. [place] [address], hemoglobin is 11, asymmetric metabolic profile was reviewed, bicarb is 43 BUN is 52 creatinine is 0.55. Patient was reevaluated today on 05/21/2018, continues to tolerate the extubation relatively well, she does while on BiPAP, and she doesn't do great on high flow nasal cannula or air vo2. Today we received the final report on the bronchial washing, and sure enough the patient doesn't have MRSA in the bronchial washing, and she has been already on vancomycin since yesterday. We will continue the vancomycin. Chest x-ray is showing some improvement today on the left side, but continues to have a significant amount of consolidation in the right lower lobe area. White cell count is coming down to 19.2 , hemoglobin is 11.0, PTT is 62.7, however the patient is having some bloody sputum, and small amount of hemoptysis, hence I would recommend stopping Coumadin and heparin today for sure. Reevaluated today on 05/22/2018, patient remains off mechanical ventilation, presently on BiPAP, tolerating BiPAP quite well. Patient did not do well with high flow nasal cannula but she is able to use it when she eats. Chest x-ray is showing some worsening hence I recommended more diuretics in the form of Lasix and Diamox. Her WBC count today is up to 28.5, hemoglobin is 11.6. Basic metabolic profile is normal bicarb is 39 however, BUN is 55 creatinine 0.70. Chest x-ray showed continuing bilateral alveolar airspace disease and small bilateral effusions mostly on the right side. But previous ultrasound did not reveal enough fluid to safely perform thoracentesis. Bronchial washing has been positive for MRSA, cytology from the bronchial washing has been negative for malignancy. Patient is still now on vancomycin, Zosyn, and Levaquin. Continues to have intermittent episodes of hemoptysis, Coumadin and heparin remain on hold. Progress note dated 05/23/2018 This is a DO NOT RESUSCITATE patient who is 77 years of age. She was admitted way back on May 11 for respiratory failure. She was intubated on May 11 and finally extubated on the . She had bronchoscopy on the which apparently revealed methicillin-resistant staph aureus. Since extubation on the , she has been BiPAP dependent with settings of IPAP 16 EPAP 8 and an FiO2 50%. He is getting a saline IV just at KVO. As mentioned above, she is a DO NOT RESUSCITATE. She's been seen by my partners over the last number of days. The chest x-ray shows significant bilateral alveolar airspace disease with small effusions. None pleural effusion to do a thoracentesis on. Bronchial washings were positive for MRSA. Cytology has been negative. The patient remains on good antibiotic coverage. Overall, her prognosis remains poor. Her previous health was not very good. I'm glad that she has chosen to be a DO NOT RESUSCITATE and not to be reintubated. I think that is appropriate. Chest x-ray shows bilateral diffuse infiltrates. White count 15.2 hemoglobin 10 hematocrit 31.6 platelet count 149,000. Sodium potassium chloride normal CO2 40 be any crab were 54 and 0.93 bronchoscopy washings and sputum show evidence of methicillin resistant staph aureus. Medications are reviewed. Progress note dated 05/24/2018 The patient is again seen today. Currently she is a DO NOT RESUSCITATE. She spends half her time on BiPAP with settings of 16 IPAP and EPAP and 35% and the other time on AIRVO. Her IV is a saline IV at KVO. The patient did not have a chest x-ray today. The patient's last chest x-ray was done yesterday. I had a long talk with the family yesterday. The patient's bronchoscopy on the of this month showed epicillin resistant staph aureus. Chest x-ray shows diffuse bilateral infiltrates. We will get a chest x-ray tomorrow. The patient would not want to be reintubated again. She was very clear about that. The patient appears to be much more alert today. Still having some difficulty breathing. Not coughing very much. Not producing any phlegm. White count 21.1 hemoglobin 10.5 hematocrit 33.2 and platelet count 158,000. Sodium potassium chloride all normal. CO2 38. BUN and creatinine were 57 and 0.8. On 05/25/2018 patient seen again in follow-up in the intensive care unit. She remains on AIRVO at a flow of 45 L/m, and FiO2 of 60%, she is wearing her BiPAP at night at settings of 16/8, and 45% FiO2. Her maintenance IV is 0.9 normal saline at a rate of 20 ML per hour. She is awake, and alert, oriented 3, no focal neurological deficits. She is afebrile, hemodynamically stable. Today's chest x-ray has been reviewed by Dr. Barnhart, and findings are consistent of improving CHF and pulmonary edema with residual pulmonary vascular congestion, there is extensive opacity in the right mid and lower lung secondary to elevated right hemidiaphragm, and underlying [id number] pleural effusion with prominent adjacent lower lobe atelectasis and/or consolidation. For that reason patient needs aggressive pulmonary toileting, she needs percussion and vibration, incentive spirometry use. Bronchial wash cultures showed MRSA, and patient is being treated with IV vancomycin. She is on IV diuretics, 40 mg twice daily, she is in negative 7:30 ML fluid balance over the last 24 hours, there has been significant improvement in the appearance of bilateral lower extremity edema. Lung sounds are diminished, with coarse bilateral rhonchi and crackles, no wheezes. Today's labs were reviewed, WBC remains elevated at 21.2 , hemoglobin is 10.6, renal profile is stable, BUN 53, creatinine 0.7, electrolytes are within normal limits, with the exception of CO2 which is at 34. Patient remains on Diamox for metabolic alkalosis. No fever no chills, no worsening dyspnea. Only occasional cough, nonproductive. On 06/01/2018 I'm seeing this patient for a follow-up. The patient is not doing the best. She is a bit lethargic. She slept all night yesterday. This morning she is feeling weak and she is on fish short of breath on high flow oxygen at 15 right percent FiO2. Pulse ox around 94% on high flow oxygen. The CAT scan of the chest was done yesterday showed evidence of pulmonary edema. There was patchy infiltrates bilaterally likely on the basis of pulmonary edema. There is also small bilateral pleural effusion. The bibasilar compressive atelectatic changes were essentially improving. Based on these findings, increased the patient's Lasix up to 40 g twice a day on that he started the Diamox. The patient is diuresing. The patient is a negative fluid balance. A repeat chest x-ray from today shows improvement in the pulmonary edema. Nevertheless residual edema in the upper lobes and persistent consolidation of the right lower lobe along with small bilateral pleural effusion. The echocardiogram that was done at time of admission showed an ejection fraction of 50-55% and the left atrium was severely dilated. The patient has severe aortic stenosis present. The patient also has moderate degree of mitral regurgitation and severe mitral stenosis. There is also moderate to severe pulmonary hypertension present. As such there is obvious valvular heart disease which could be contributing to the patient's pulmonary edema and hypoxic respiratory failure. The patient is still on vancomycin regarding MRSA pneumonia. Vancomycin levels are being monitored on a regular basis. Renal function is still stable. The serum bicarb is 42. The patient is seen today 06/02/2018 in follow-up in the intensive care unit. She is currently awake and alert. She had an echocardiogram performed this morning. She is somewhat dyspneic currently on the AirVo currently at oxygen flow rate of 35 and 55% FiO2. O2 saturations were in the upper 80s. She is alternating back and forth between the BiPAP 16/8 and 45% FiO2 which keeps her O2 saturations in the 90s. Chest x-ray continues to show small to moderate right and small left pleural effusions with adjacent atelectasis. Persistent but improving interstitial pulmonary edema. She currently denies any significant discomfort. No chest pain or palpitations. Hemodynamically stable. Currently afebrile. White count 17.6. Hemoglobin 9.0. Creatinine 0.70. Bicarb 42. She remains on Lasix 40 mg IV push every 8 hours. She is continued on vancomycin. The patient is seen again today 06/03/2018 in follow-up in the intensive care unit. She remains BiPAP dependent at this point. Current settings 16/8 with an FiO2 of 45% to maintain O2 saturations in the 90s. Today's chest x-ray is basically unchanged showing mild pulmonary vascular congestion and trace pleural effusions. There is persistent right hemidiaphragm elevation. Repeat echocardiogram continues to reveal preserved left ventricular systolic function with ejection fraction 60-65%. There is moderate aortic stenosis and moderate to severe mitral stenosis along with moderate to severe pulmonary hypertension with an RVSP of 60 mmHg. She remains on Lasix 40 mg IV push every 8 hours. Currently in a negative balance. She is down 2 more kg. White count 16.1. Hemoglobin 8.9. Creatinine 0.76. She remains on vancomycin. On 06/04/2018, I'm seeing this patient for a follow-up. Unfortunately much much of progress over the past few days. Still on high flow oxygen. She is alternating with a BiPAP at a pressure of 16/8 cm of water. She is getting progressively more lethargic. Echocardiogram was repeated and there is no interval change. She has severe MS and aortic stenosis and preserved LV function. Remains on Lasix 3 times a day 40 mg IV push and Diamox. The blood work from today shows a white cell count of 14.0. Bicarb level of 41. BUN of 53. Creatinine of 0.7. Urine output is adequate and the patient is a negative fluid balance. Chest x-ray shows continuing opacity of the right lung. Improved vasculature and vascular congestion. Small bilateral pleural effusions. She remains on vancomycin. Had a lengthy discussion with the family. Her respiratory failure is thought to be related to staphylococcal pneumonia and valvular heart disease. On 06/05/2018, the patient is still in acute hypoxic respiratory failure, BiPAP dependent and high flow oxygen dependent. Overnight she stepped on the BiPAP at a pressure of 16/8 cm of water and FiO2 of 60%. This morning she is on high flow oxygen at 65% FiO2. Still on Lasix. Good urine output. Diamox for metabolic alkalosis. CAT scan of the chest was repeated and there was some improvement in the groundglass pulmonary infiltrates bilaterally although still extensive. She is on examination of cefepime vancomycin. She is on IV Solu- Medrol. She is on IV Lasix. She is weak. Oral intake is diminished probably 30-40% of her meals are being taken. No fever. No chills. She is lethargic yet arousable conscious awake and alert and communicating. Renal function is the same. I will say we are still at a standstill and there is no much improvement in her condition in general. On 06/06/2018, patient is basically about the same. Seems to be BiPAP dependent, could not tolerate high flow nasal cannula at all. She only lasted less than half an hour on high flow air vo2. Remains on BiPAP pressures of 16/8 and FiO2 of 60%. Chest x-ray is basically about the same. Patient remains on diuretics in the form of Lasix and Diamox. Continues to have interstitial edema and possibly underlying pulmonary infiltrates. Remains on antibiotics in the form of cefepime and vancomycin. She is also on IV Solu-Medrol. Patient has poor oral intake, and she seems to be generally weak and tired. She is alert oriented, and communicating well. Her labs were reviewed CBC is relatively normal hemoglobin is 8.4 WBC is 12.9 basic metabolic profile noted a bicarb of 39 BUN of 52 creatinine 0.60. On 06/07/2018 patient seen in follow-up in the intensive care unit. She remains BiPAP dependent, and unable to tolerate even short trials of high flow nasal cannula or Airvo. His chest x-ray has been reviewed, shows improving pulmonary edema, and residual pulmonary vascular congestion, persistent moderate right and small left pleural effusions with adjacent atelectasis. Afebrile, hemodynamically stable, tachypneic with respiratory rate 20-29 breaths per minute. Patient is being treated for MRSA pneumonia, and she remains on a combination of cefepime, and vancomycin. She remains on IV diuretics, with Lasix 40 mg every 8 hours. He is maintaining negative fluid balance, -1044 and last 24 hours. His labs have been reviewed, WBC is 14.4, Novolin is 8.8, platelet count is 56, sodium is 137, potassium is 4.1, chloride 97, CO2 of 39, BUN 56 and creatinine 0.6. She is generally weak, lung sounds reveal diminished breath sounds, more so over the left base, with diffuse crackles. In view of lack of significant improvement and protracted hospital course, requiring BiPAP support essentially continuously, patient's family is considering comfort care measures. On 06/08/2018 patient seen in follow-up in the intensive care unit. Patient has maintained a little improvement, remains BiPAP dependent, with setttings of FiO2 of 75%, 16/8 cm of water. There has been significant worsening of bilateral pulmonary edema and bilateral infiltrates on today's chest x-ray. This is despite maximizing medical treatment, in no form of IV diuretics, antibiotics, and steroids. He is tachycardic, with heart rate up to 122 BPM, maintenance IV fluids include 0.9 normal saline at a rate of 10 ML per hour. Weight is down 0.6 kg in the last 24 hours. No new growth on cultures, patient is being treated for MRSA pneumonia based on MRSA in the bronchial washings and sputum cultures. Patient has not made any significant clinical improvement, she is becoming very weak, and very uncomfortable from continuous BiPAP support. Labs reviewed, WBC 15.2, hemoglobin is 9.0, platelet count is 66, sodium is 140, potassium is 3.3, CO2 is 38. 's family were updated on patient's condition, they were considering transferring the patient to a long-term vent facility, however in view of patient's deteriorating clinical status, increasing discomfort, worsening pulmonary status, worsening chest x-ray, recommendation was made for comfort care. Objective - Vital Signs Vital signs: Vital Signs Temp 97.7 F 06/08/18 08:00 Pulse 111 H 06/08/18 13:00 Resp 31 H 06/08/18 13:00 BP 120/66 06/08/18 13:00 Pulse Ox 95 06/08/18 13:00 Intake & Output 06/07/18 06/08/18 06/08/18 18:59 06:59 18:59 Intake Total 533.747 275 140 Output Total 1400 785 100 Balance -866.253 -510 40 Weight 102.1 kg 101.5 kg Intake: IV 510 275 40 Cefepime 2 gm In Sodium 50 Chloride 0.9% 50 ml @ 100 mls/hr IVPB Q12HR [facility] Rx #:[id number] Sodium Chloride 0.9% 1, 10 100 40 000 ml @ 10 mls/hr IV . Q24H [facility]AN[facility] Rx#:[id number] Vancomycin 1,500 mg In 500 125 Sodium Chloride 0.9% 250 ml @ 125 mls/hr IVPB Q16H [facility] Rx#:[id number] Intake, IV Titration 23.747 100 Amount Norepinephrine 16 mg In 23.747 Dextrose 5% in Water 250 ml @ Titrate IV .Q0M [facility]AN[facility] Rx#:[id number] Potassium Chloride 20 meq 100 In Water For Injection 1 100ml.bag @ 50 mls/hr IVPB Q2H [facility]AN[facility] Rx#: [id number] Oral 0 Output: Urine 1400 785 100 Other: Voiding Method Indwelling Catheter Indwelling Catheter Indwelling Catheter ABP, PAP, CO, CI - Last Documented Arterial Blood Pressure 24/24 - Exam Pleasant, 78-year-old obese white female, remains BiPAP dependent, patient has been dyspnec, HEENT examination is grossly unremarkable. Mucous membranes are moist. Neck supple. Full range of motion. No adenopathy thyromegaly or neck vein distention. Cardiovascular examination reveals regular rhythm rate. S1-S2 normal. No S3 or S4. A loud systolic murmur of aortic stenosis is noted.. Lungs reveal severely diminished breath sounds throughout. There is coarse bilateral rhonchi and crackles. No wheezes. Breath sounds are equal bilaterally. Abdomen soft. Bowel sounds are not noted. No masses or tenderness. Extremities are intact. No cyanosis clubbing or edema. Skin is without rash or lesion. Neurologic examination is brief but nonfocal. - Labs CBC & Chem 7: 06/08/18 05:45 06/08/18 05:45 Labs: Abnormal Lab Results - Last 24 Hours (Table) 06/07/18 06/07/18 06/08/18 Range/Units 17:07 20:59 05:45 WBC (3.8-10.6) k/uL RBC (3.80-5.40) m/uL Hgb (11.4-16.0) gm/dL Hct (34.0-46.0) % MCHC (31.0-37.0) g/dL RDW (11.5-15.5) % Plt Count (150-450) k/uL Neutrophils # (1.3-7.7) k/uL Lymphocytes # (1.0-4.8) k/uL Potassium 3.3 L (3.5-5.1) mmol/L Chloride 97 L (98-107) mmol/L Carbon Dioxide 38 H (22-30) mmol/L BUN 50 H (7-17) mg/dL Glucose 127 H (74-99) mg/dL POC Glucose (mg/dL) 214 H 219 H (75-99) mg/dL Calcium 8.3 L (8.4-10.2) mg/dL 06/08/18 06/08/18 Range/Units 05:45 07:05 WBC 15.2 H (3.8-10.6) k/uL RBC 3.02 L (3.80-5.40) m/uL Hgb 9.0 L (11.4-16.0) gm/dL Hct 29.1 L (34.0-46.0) % MCHC 30.9 L (31.0-37.0) g/dL RDW 21.1 H (11.5-15.5) % Plt Count 66 L (150-450) k/uL Neutrophils # 13.9 H (1.3-7.7) k/uL Lymphocytes # 0.5 L (1.0-4.8) k/uL Potassium (3.5-5.1) mmol/L Chloride (98-107) mmol/L Carbon Dioxide (22-30) mmol/L BUN (7-17) mg/dL Glucose (74-99) mg/dL POC Glucose (mg/dL) 143 H (75-99) mg/dL Calcium (8.4-10.2) mg/dL Microbiology - Last 24 Hours (Table) 05/19/18 11:15 Acid Fast Bacilli Smear - Final Bronchial Washings - Right Acid Fast Bacilli Culture - Preliminary Assessment and Plan Plan: Assessment: 1 acute hypoxic respiratory failure with bilateral lower lobe pneumonia secondary to MRSA and the patient is currently on IV vancomycin. In addition, there is a component of pulmonary edema secondary to CHF/valvular heart disease. We have reached a plateau in terms of recovery and were not seeing any further improvement in her condition as mentioned earlier. the pulmonary infiltrates are essentially interstitial edema related to valvular heart disease /CHF. I think the MRSA pneumonia itself has recovered. The patient has small bilateral pleural effusion and thoracentesis would not be of any significant benefit to this patient. 2 bilateral lower lobe pneumonia. This is a MRSA pneumonia which is being treated with vancomycin. 3 acute cardiac pulmonary arrest with brief loss impulses at a time of admission , recovered 4 lactic acidosis secondary to above, recovered 5 leukocytosis secondary to above, and the white cell count is down to 13 6 morbid obesity with a BMI of 43.4 7 obstructive sleep apnea 8 severe persistent bronchial asthma 9 history of right hemidiaphragmatic plication for unilateral paralysis 10 moderate to severe severe aortic stenosis and mitral stenosis, with a preserved LV function as evident on the echocardiogram 11 history of TIA 12 nephrolithiasis 13 gouty arthritis 14 hypothyroidism 13 hypertension 16 hyperlipidemia 17 history of atrial fibrillation 18 acid reflux 19 gout 20 degenerative arthritis 21 episodes of SVT, and currently the patient is atrial fibrillation with a controlled rate and she is currently on amiodarone 200 mg by mouth twice a day and Eliquis 5 mg by mouth twice a day for long-term anticoagulation. Her echocardiogram shows a preserved LV function. 22 thrombocytopenia, currently off Eliquis Plan: Patient then increasingly dyspneic, even on BiPAP support on which she remains very much dependent. Desaturating, FiO2 was increased to 75%, today's chest x- ray has been reviewed, shows worsening bilateral infiltrates, and pulmonary edema. Patient has been maximized on medical treatment, and despite that has not made significant clinical improvement and as a matter fact has started to deteriorate. She is a increasingly dyspneic, and uncomfortable, from continued BiPAP support. Plan of care has been discussed with the family, and it was recommended they discuss goals of treatment amongst themselves and to consider comfort care measures. After family discussion, family has expressed the wish to proceed with comfort care measures, and [facility] consulted. I performed a history & physical examination of the patient and discussed their management with my nurse practitioner, Marianela Sparks. I reviewed the nurse practitioner's note and agree with the documented findings and plan of care. Lung sounds are diminished lung sounds, with scattered rhonchi and rales, no wheezing. The findings and the impression was discussed with the patient. I attest to the documentation by the nurse practitioner. Time with Patient: Greater than 30
[2018-06-08] MEDS: SODIUM CHLORIDE 0.9% 1,000 ML IV SCH (16:03)
--- NOTE | 2018-06-09 19:50 | DS ---
DISCHARGE SUMMARY PRELIMINARY CAUSE OF : Congestive heart failure acute exacerbation with acute on chronic diastolic dysfunction with acute hypoxic respiratory failure and cardiopulmonary arrest. OTHER DIAGNOSES: 1. Pneumonia possibly gram-negative sepsis. 2. Sleep apnea on BiPAP at home. 3. Morbid obesity. 4. Pulmonary hypertension. 5. Transient ischemic attack. 6. History of right diaphragmatic plication with unilateral paralysis. 7. Degenerative joint disease. 8. Hypothyroidism. 9. Paroxysmal atrial fibrillation. 10.Gastroesophageal reflux disease. 11.Hypertension. 12.Hypertensive pleural effusion. 13.ARDS history. 14.Status post PICC line insertion. HISTORY OF PRESENT ILLNESS: This 78-year-old woman presented with multiple medical problems as mentioned earlier, being followed by Dr. Cullen Cox in the outpatient setting was treated for pneumonia, CHF acute exacerbation, acute hypoxic respiratory failure. The patient was treated in conjunction with Dr. Saldana and multiple other consultants. Please refer to the reporting consultant notes and progress notes for further details. Despite intensive treatment, the patient's condition did not improve. Ultimately the case was discussed with family and comfort care measures were initiated and patient subsequently because of above mentioned multiple medical problems. The prognosis remained extremely guarded through the hospitalization and hospice was consulted towards the end of the hospitalization. Once again, see multiple consultants notes including Cardiology, Pulmonology notes, Dr. Whatley and Dr. Saldana and Dr. Baumann's notes for further information. MMODL / IJN: [id number] /
== END 2018-06-08 16:12 | disposition hospice, inpatient (51) | DRG 853 ==
LOC: EC 15:11 → 6ICU 17:21
PROVIDERS: ADMIT Family Medicine; ATTEND Family Medicine
PROC: 5A12012 Performance of Cardiac Output, Single, Manual (ICD-10-PCS; principal; 2018-05-11)
PROC: 0BH18EZ Insertion of Endotracheal Airway into Trachea, Via Natural or Artificial Opening Endoscopic (ICD-10-PCS; principal; 2018-05-11)
PROC: 5A1955Z Respiratory Ventilation, Greater than 96 Consecutive Hours (ICD-10-PCS; principal; 2018-05-11)
PROC: 02HV33Z Insertion of Infusion Device into Superior Vena Cava, Percutaneous Approach (ICD-10-PCS; 2018-05-11)
PROC: 0B9F8ZX Drainage of Right Lower Lung Lobe, Via Natural or Artificial Opening Endoscopic, Diagnostic (ICD-10-PCS; 2018-05-19)
PROC: 02HV33Z Insertion of Infusion Device into Superior Vena Cava, Percutaneous Approach (ICD-10-PCS; 2018-05-30)
DX: A41.02 Sepsis due to Methicillin resistant Staphylococcus aureus (principal); I46.9 Cardiac arrest, cause unspecified; I50.43 Acute on chronic combined systolic (congestive) and diastolic (congestive) heart failure; J15.212 Pneumonia due to Methicillin resistant Staphylococcus aureus; J96.21 Acute and chronic respiratory failure with hypoxia; R40.2110 Coma scale, eyes open, never, unspecified time; R40.2310 Coma scale, best motor response, none, unspecified time; R40.2210 Coma scale, best verbal response, none, unspecified time; E87.4 Mixed disorder of acid-base balance; I42.2 Other hypertrophic cardiomyopathy; I47.1 Supraventricular tachycardia; I48.1 Persistent atrial fibrillation; I48.92 Unspecified atrial flutter; J44.0 Chronic obstructive pulmonary disease with (acute) lower respiratory infection; J98.11 Atelectasis; Z68.41 Body mass index [BMI] 40.0-44.9, adult; D69.6 Thrombocytopenia, unspecified; E03.9 Hypothyroidism, unspecified; E66.01 Morbid (severe) obesity due to excess calories; E78.5 Hyperlipidemia, unspecified; G47.33 Obstructive sleep apnea (adult) (pediatric); I08.0 Rheumatic disorders of both mitral and aortic valves; I11.0 Hypertensive heart disease with heart failure; I25.10 Atherosclerotic heart disease of native coronary artery without angina pectoris; I27.29 Other secondary pulmonary hypertension; I48.0 Paroxysmal atrial fibrillation; J98.6 Disorders of diaphragm; K21.9 Gastro-esophageal reflux disease without esophagitis; M10.9 Gout, unspecified; M19.90 Unspecified osteoarthritis, unspecified site; Z51.5 Encounter for palliative care; N20.0 Calculus of kidney; Z66 Do not resuscitate; Z79.01 Long term (current) use of anticoagulants; Z79.2 Long term (current) use of antibiotics; Z79.82 Long term (current) use of aspirin; Z82.49 Family history of ischemic heart disease and other diseases of the circulatory system; Z86.73 Personal history of transient ischemic attack (TIA), and cerebral infarction without residual deficits; Z87.01 Personal history of pneumonia (recurrent); Z87.442 Personal history of urinary calculi; Z90.710 Acquired absence of both cervix and uterus; Z99.81 Dependence on supplemental oxygen; Z90.49 Acquired absence of other specified parts of digestive tract; Z79.51 Long term (current) use of inhaled steroids; Z79.899 Other long term (current) drug therapy; Z88.2 Allergy status to sulfonamides; Z91.048 Other nonmedicinal substance allergy status
CPT/HCPCS: 31500; 31624; 36415; 36556; 36569; 36600; 51702; 71045; 71260; 76604; 76937; 80048; 80051; 80053; 80202; 81003; 82533; 82550; 82553; 82805; 83605; 83735; 83880; 84100; 84132; 84439; 84443; 84484; 85025; 85027; 85610; 85730; 87040; 87070; 87077; 87102; 87116; 87186; 87205; 87206; 87252; 87496; 87498; 87502; 87529; 87634; 87798; 88108; 88305; 89050; 93005; 93306; 94002; 94003; 94640; 94660; 96365; 96372; 96375; 99291

== ENCOUNTER 2018-06-08 14:16 | Inpatient (IN) | payer MEDICAID, OTHER ==
[2018-06-08] MEDS ORDERED: MORPHINE SULFATE 2 MG/ML SYRINGE IV PRN (15:46)
[2018-06-08] MEDS ORDERED: SCOPOLAMINE 1.5MG/72HR PATCH TRANSDERM PRN (15:46)
[2018-06-08] MEDS ORDERED: ACETAMINOPHEN SUPPOSITORY 650 MG SUPP RECTAL PRN (15:46)
[2018-06-08] MEDS ORDERED: DRY MOUTH SPRAY 44.3 SPRAY/44.3 ML SPRAY MUCOUS MEM PRN (15:46)
[2018-06-08] MEDS ORDERED: ATROPINE OPHTH SOLN 1% 5ML BTL SUBLINGUAL PRN (15:46)
[2018-06-08] MEDS ORDERED: ONDANSETRON 4 MG/2 ML VIAL IVP PRN (15:46)
[2018-06-08] MEDS ORDERED: LORazepam 2 MG/ML INJ IV PRN (15:46)
[2018-06-08] MEDS ORDERED: MORPHINE SULFATE (100 MG/2 ML) 100 MG in SODIUM CHLORIDE 0.9% 100 ML IV SCH (16:00)
[2018-06-08] MEDS ORDERED: SODIUM CHLORIDE 0.9% 1,000 ML IV SCH (16:00)
[2018-06-08 16:35] VITALS: RESP 35
== END 2018-06-08 21:01 | disposition expired | DRG 951 ==
LOC: 6ICU 16:14
PROVIDERS: ADMIT Internal Medicine; ATTEND Internal Medicine
DX: Z51.5 Encounter for palliative care (principal); I50.33 Acute on chronic diastolic (congestive) heart failure; J15.6 Pneumonia due to other Gram-negative bacteria; J96.01 Acute respiratory failure with hypoxia; A41.9 Sepsis, unspecified organism; E66.2 Morbid (severe) obesity with alveolar hypoventilation; Z68.41 Body mass index [BMI] 40.0-44.9, adult; G45.9 Transient cerebral ischemic attack, unspecified; I11.0 Hypertensive heart disease with heart failure; G47.33 Obstructive sleep apnea (adult) (pediatric); E03.9 Hypothyroidism, unspecified; I35.0 Nonrheumatic aortic (valve) stenosis; J44.9 Chronic obstructive pulmonary disease, unspecified; K21.9 Gastro-esophageal reflux disease without esophagitis; E78.5 Hyperlipidemia, unspecified; M10.9 Gout, unspecified; M19.90 Unspecified osteoarthritis, unspecified site; I27.20 Pulmonary hypertension, unspecified; I48.0 Paroxysmal atrial fibrillation; Z86.74 Personal history of sudden cardiac arrest; Z79.82 Long term (current) use of aspirin; Z79.899 Other long term (current) drug therapy; Z88.2 Allergy status to sulfonamides; Z91.048 Other nonmedicinal substance allergy status; Z87.442 Personal history of urinary calculi; Z90.49 Acquired absence of other specified parts of digestive tract; Z90.710 Acquired absence of both cervix and uterus; Z98.42 Cataract extraction status, left eye; Z98.41 Cataract extraction status, right eye; Z96.1 Presence of intraocular lens